=== PATIENT | female | born 1945 | race Caucasian/White ===

== ENCOUNTER 2016-11-11 09:51 | Inpatient (IN) | payer OTHER ==
[2016-11-11 10:13] VITALS: BMI 30.2
--- NOTE | 2016-11-11 10:32 | PDOC ---
History of Present Illness <Jose Lennon - Last Filed: 11/11/16 13:57> - General History Source: Patient Exam Limitations: No Limitations - History of Present Illness Initial Comments: 11/11/16 11:03 The patient is a 71 year old female with a significant past medical history of CHF, diabetes, on dialysis (Sunday, Sunday, Sunday, for the past year), hypertension, and hypercholesterolemia, who presents to the ER with blood glucose 564. Patients daughter is at bedside. As per patients daughter, patient was prescribed insulin for the diabetes 12 months ago. Patient did not fill her prescription then because she was told the dialysis may improve the sugar level. Daughter reports that doctor also may suspect an infection. Patient was not adherent to insulin use. She lives with her sons and has a manager nursing home taking care of her. Patient refuses to have nursing aides. He denies lightheadedness, nausea, vomiting, diarrhea, fever, chills, chest pain, or cough. She denies hematochezia or blood in vomit. Scientific Research Manager: Dr. Lolis Finney <Chelsie Curry - Last Filed: 11/11/16 14:04> - General Chief Complaint: Blood Sugar Problem Stated Complaint: PCP SENT, HIGH SUGAR Past History - Past Medical History CHF: Yes Diabetes: Yes Dialysis: Yes Disorders: Yes (esrd, dialysis) HTN: Yes Hypercholesterolemia: Yes - Immunization History Immunization Up to Date: Yes - Psycho/Social/Smoking Cessation Hx Anxiety: No Suicidal Ideation: No Smoking History: Never smoked Have you smoked in the past 12 months: No Number of Cigarettes Smoked Daily: 0 Information on smoking cessation initiated: No Hx Alcohol Use: No Drug/Substance Use Hx: No Substance Use Type: None Hx Substance Use Treatment: No <Jose Lennon - Last Filed: 11/11/16 13:57> <Chelsie Curry - Last Filed: 11/11/16 14:04> - Past Medical History Allergies/Adverse Reactions: Allergies Allergy/AdvReac Type Severity Reaction Status Date / Time No Known Allergies Allergy Verified 11/11/16 10:12 Home Medications: Ambulatory Orders Calcium Acetate [Phoslo -] 667 mg PO TIDCM 04/17/16 Furosemide [Lasix -] 120 mg PO DAILY 04/17/16 Labetalol HCl [Normodyne -] 400 mg PO AM 04/17/16 Losartan Potassium [Cozaar] 100 mg PO DAILY 04/17/16 Nifedipine ER [Procardia XL -] 60 mg PO BID 04/17/16 Pravastatin Sodium [Pravachol -] 20 mg PO HS 04/17/16 Labetalol HCl [Normodyne -] 200 mg PO 1200 11/11/16 Labetalol HCl [Normodyne -] 200 mg PO HS 11/11/16 Review of Systems - Review of Systems Able to Perform ROS?: Yes Comments:: 11/11/16 11:08 CONSTITUTIONAL: Present: elevated blood sugar Absent: fever, no chills, no fatigue EYES: Absent: visual changes ENT: Absent: ear pain, no sore throat CARDIOVASCULAR: Absent: chest pain, no palpitations RESPIRATORY: Absent: cough, no SOB GI: Absent: abdominal pain, no nausea, no vomiting, no constipation, no diarrhea GENITOURINARY: Absent: dysuria, no frequency, no hematuria MUSCULOSKELETAL: Absent: back pain, no arthralgia, no myalgia SKIN: Absent: rash NEURO: Absent: headache <Uts,Chelsie - Last Filed: 11/11/16 14:04> *Physical Exam - Vital Signs Last Vital Signs Temp Pulse Resp BP Pulse Ox 98.5 F 81 18 146/62 97 11/11/16 10:10 11/11/16 10:10 11/11/16 10:10 11/11/16 10:10 11/11/16 10:10 <Jose Lennon - Last Filed: 11/11/16 13:57> - Vital Signs Last Vital Signs Temp Pulse Resp BP Pulse Ox 98.5 F 81 18 146/62 97 11/11/16 10:10 11/11/16 10:10 11/11/16 10:10 11/11/16 10:10 11/11/16 10:10 - Physical Exam Comments: 11/11/16 11:09 GENERAL: Well-appearing, well-nourished. No apparent distress. HEENT: Normocephalic, atraumatic. PERRL, EOM intact. CARDIOVASCULAR: Normal S1, S2. Regular rate and rhythm. PULMONARY: Clear to auscultation bilaterally. ABDOMEN: Soft, non-distended, non-tender. EXTREMITIES: No peripheral edema. Normal ROM in all four extremities. No gross deformities. SKIN: Warm, dry. No rash NEUROLOGICAL: No focal neurological deficits. <Cehlsie Curry - Last Filed: 11/11/16 14:04> ED Treatment Course - LABORATORY CBC & Chemistry Diagram: 11/11/16 11:08 11/11/16 11:08 <Jose Lennon - Last Filed: 11/11/16 13:57> - LABORATORY CBC & Chemistry Diagram: 11/11/16 11:08 11/11/16 11:08 <Chelsie Curry - Last Filed: 11/11/16 14:04> Medical Decision Making - Medical Decision Making 11/11/16 14:[address] Sobeida Chavez (covering for Dr. Lolis Finney) <Chelsie Curry - Last Filed: 11/11/16 14:04> *DC/Admit/Observation/Transfer - Discharge Dispostion Admit: Yes <Jose Lennon - Last Filed: 11/11/16 13:57> - Attestations Scribe Attestion: 11/11/16 11:10 Documentation prepared by Chelsie Curry, acting as registered medical assistant for Jose Lennon MD, /DO. <Chelsie Curry - Last Filed: 11/11/16 14:04> Diagnosis at time of Disposition: Anemia, chronic renal failure, Hyperglycemia - Discharge Dispostion Condition at time of disposition: Stable - Referrals Referrals: Ken Burgos [Primary Care Provider] -
[2016-11-11 11:18] LABS: BASOPHIL 0.8 % (0-2.0); EOSINOPHIL 2.9 % (0-4.5); MCH 28.2 pg (25.7-33.7); MCHC 32.1 g/dl (32.0-36.0); MEAN CELL VOLUME 87.7 fl (80-96); MEAN PLT VOLUME 9.4 fl (7.5-11.1); NEUTROPHILS 72.1 % (42.8-82.8); PLATELET COUNT 159 K/MM3 (134-434); RDW 15.3 % (11.6-15.6); WHITE BLOOD COUNT 7.8 K/mm3 (4.0-10.0)
[2016-11-11] MEDS ORDERED: INSULIN REGULAR HUMAN 100 UNITS/ML *VIAL IVPUSH ONE (11:18)
[2016-11-11] MEDS ORDERED: INSULIN REGULAR HUMAN 100 UNITS/ML *VIAL ONE (11:35)
[2016-11-11 11:38] LABS: INR 1.08 (0.82-1.09); PROTHROMBIN TIME (PATIENT) 11.9 SEC (9.98-11.88)
[2016-11-11 11:41] LABS: ACTIVATED PTT 29.2 SECONDS (26.9-34.4)
[2016-11-11 11:43] LABS: ALBUMIN 3.8 g/dl (3.4-5.0); ANION GAP 9 (8-16); BILIRUBIN,TOTAL 0.4 mg/dL (0.2-1.0); CALCIUM 9.2 mg/dL (8.5-10.1); CO2 29 mmol/L (21-32); CREATININE 4.2 mg/dL (0.55-1.02); SGOT/AST 9 U/L (15-37); SGPT/ALT 18 U/L (12-78); TOT PROT 6.9 g/dl (6.4-8.2)
[2016-11-11 11:44] LABS: URINE APPEARANCE SLCLOUDY; URINE BILIRUBIN NEGATIVE (NEGATIVE); URINE BLOOD NEGATIVE (NEGATIVE); URINE COLOR LTYELLOW; URINE GLUCOSE (UA) 3+ (NEGATIVE); URINE KETONE NEGATIVE (NEGATIVE); URINE NITRITE NEGATIVE (NEGATIVE); URINE UROBILINOGEN NEGATIVE E.U./dl (0.2-1.0)
[2016-11-11 11:44] LABS: ALK PHOS 129 U/L (45-117)
[2016-11-11 11:45] LABS: URINE LEUK ESTERASE 1+ (NEGATIVE); URINE PROTEIN 3+ (NEGATIVE)
[2016-11-11 11:51] LABS: URINE RBC 3 /hpf (0-3); URINE WBC 32 /hpf (3-5)
[2016-11-11 11:54] LABS: GLUCOSE,RANDOM 429 mg/dL (74-106)
[2016-11-11 12:24] LABS: ACETONE SERUM NEGATIVE (NEGATIVE)
[2016-11-11 13:24] LABS: VENOUS BLOOD GAS HCO3 27.5 meq/L (22-29); VENOUS PH 7.4 (7.31-7.41)
--- NOTE | 2016-11-11 14:36 | HP ---
CHIEF COMPLAINT: High blood sugar PCP: Dr. Rogers ([address]) HISTORY OF PRESENT ILLNESS: This is a 71 year old female with a history of IDDM (was prescribed insulin but has not been using it), HTN, HLD, ESRD on HD M/W/ since December 2015, CHF, and chronic anemia (with prior transfusions) referred to the ED by her dialysis center for anemia and hypoglycemia. The patient reports having a normal EGD and colonoscopy in February of this year. She denies hematemesis or hematochezia. She does report some hematuria. ER course was notable for: (1) Hgb/hct 7.0/21.7 (2) Blood glucose 429 with normal AG and negative acetone (3) UA with 32 WBCs, possibly consistent with UTI Recent Travel: None Social History: Lives with 2 sons Smoking: None Alcohol: None Allergies No Known Allergies Allergy (Verified 11/11/16 10:12) HOME MEDICATIONS: Medication Instructions Recorded Calcium Acetate [Phoslo -] 667 mg PO TIDCM 04/17/16 Furosemide [Lasix -] 120 mg PO DAILY 04/17/16 Labetalol HCl [Normodyne -] 400 mg PO AM 04/17/16 Losartan Potassium [Cozaar] 100 mg PO DAILY 04/17/16 Nifedipine ER [Procardia XL -] 60 mg PO BID 04/17/16 Pravastatin Sodium [Pravachol -] 20 mg PO HS 04/17/16 Labetalol HCl [Normodyne -] 200 mg PO 1200 11/11/16 Labetalol HCl [Normodyne -] 200 mg PO HS 11/11/16 REVIEW OF SYSTEMS CONSTITUTIONAL: Absent: fever, chills, diaphoresis, generalized weakness, malaise, loss of appetite, weight change HEENT: Absent: rhinorrhea, nasal congestion, throat pain, throat swelling, difficulty swallowing, mouth swelling, ear pain, eye pain, visual changes CARDIOVASCULAR: Absent: chest pain, syncope, palpitations, irregular heart rate, lightheadedness , peripheral edema RESPIRATORY: Absent: cough, shortness of breath, dyspnea with exertion, orthopnea, wheezing, stridor, hemoptysis GASTROINTESTINAL: Absent: abdominal pain, abdominal distension, nausea, vomiting, diarrhea, constipation, melena, hematochezia GENITOURINARY: Dysuria/hematuria Absent: frequency, urgency, hesitancy, flank pain, genital pain MUSCULOSKELETAL: Absent: myalgia, arthralgia, joint swelling, back pain, neck pain SKIN: Absent: rash, itching, pallor HEMATOLOGIC/IMMUNOLOGIC: Absent: easy bleeding, easy bruising, lymphadenopathy, frequent infections ENDOCRINE: Polydyspsia Absent: unexplained weight gain, unexplained weight loss, heat intolerance, cold intolerance NEUROLOGIC: Absent: headache, focal weakness or paresthesias, dizziness, unsteady gait, seizure, mental status changes, bladder or bowel incontinence PSYCHIATRIC: Absent: anxiety, depression, suicidal or homicidal ideation, hallucinations. PHYSICAL EXAMINATION Vital Signs - 24 hr 11/11/16 11/11/16 10:10 11:00 Temperature 98.5 F 98.5 F Pulse Rate 81 81 Respiratory 18 18 Rate Blood Pressure 146/62 146/62 O2 Sat by Pulse 97 97 Oximetry (%) GENERAL: Awake, alert, and fully oriented, in no acute distress. HEAD: Normal with no signs of trauma. EYES: Pupils equal, round and reactive to light, extraocular movements intact, sclera anicteric, conjunctivae pale. No lid lag. EARS, NOSE, THROAT: Ears normal, nares patent, oropharynx clear without exudates. Moist mucous membranes. NECK: Normal range of motion, supple without lymphadenopathy, JVD, or masses. LUNGS: Breath sounds equal, clear to auscultation bilaterally. No wheezes, and no crackles. No accessory muscle use. HEART: Regular rate and rhythm, normal S1 and S2 without murmur, rub or gallop. ABDOMEN: Soft, nontender, not distended, normoactive bowel sounds, no guarding, no rebound, no masses. No hepatomegaly or splenomegaly. MUSCULOSKELETAL: Normal range of motion at all joints. No bony deformities or tenderness. No CVA tenderness. UPPER EXTREMITIES: 2+ pulses, warm, well-perfused. No cyanosis. No clubbing. Cap refill <2 seconds. No peripheral edema. LUE AVF + bruit + thrill. LOWER EXTREMITIES: 2+ pulses, warm, well-perfused. No calf tenderness. No peripheral edema. NEUROLOGICAL: Cranial nerves II-XII intact. Normal speech. Normal gait. PSYCHIATRIC: Cooperative. Good eye contact. Appropriate mood and affect. SKIN: Warm, dry, normal turgor, no rashes or lesions noted. RECTAL: Normal external exam, no internal masses. Guaiac trace positive stool. Laboratory Results - last 24 hr 11/11/16 11/11/16 11/11/16 10:51 10:51 11:08 WBC 7.8 D RBC 2.48 L D Hgb 7.0 L D Hct 21.7 L D MCV 87.7 MCHC 32.1 RDW 15.3 Plt Count 159 MPV 9.4 D Neutrophils % 72.1 Lymphocytes % 16.7 D Monocytes % 7.5 Eosinophils % 2.9 D Basophils % 0.8 INR PTT (Actin FS) VBG pH POC VBG pCO2 POC VBG pO2 Sodium Potassium Chloride Carbon Dioxide Anion Gap BUN Creatinine Creat Clearance w eGFR Random Glucose Calcium Total Bilirubin AST ALT Alkaline Phosphatase Total Protein Albumin Urine Color Ltyellow Urine Appearance Slcloudy Urine pH 8.0 Ur Specific [place] 1.018 Urine Protein 3+ H Urine Glucose (UA) 3+ H Urine Ketones Negative Urine Blood Negative Urine Nitrite Negative Urine Bilirubin Negative Urine Urobilinogen Negative Ur Leukocyte Esterase 1+ H Urine RBC 3 Urine WBC 32 Ur Epithelial Cells Moderate Acetone, Qual Blood Type O POSITIVE Antibody Screen Negative Crossmatch See Detail 11/11/16 11/11/16 11/11/16 11:08 11:08 11:15 WBC RBC Hgb Hct MCV MCHC RDW Plt Count MPV Neutrophils % Lymphocytes % Monocytes % Eosinophils % Basophils % INR 1.08 PTT (Actin FS) 29.2 VBG pH 7.40 POC VBG pCO2 45.2 D POC VBG pO2 53.8 H Sodium 133 L Potassium 4.9 Chloride 95 L Carbon Dioxide 29 Anion Gap 9 BUN 44 H Creatinine 4.2 H D Creat Clearance w eGFR 10.43 Random Glucose 429 H* D Calcium 9.2 Total Bilirubin 0.4 D AST 9 L D ALT 18 D Alkaline Phosphatase 129 H D Total Protein 6.9 Albumin 3.8 Urine Color Urine Appearance Urine pH Ur Specific [place] Urine Protein Urine Glucose (UA) Urine Ketones Urine Blood Urine Nitrite Urine Bilirubin Urine Urobilinogen Ur Leukocyte Esterase Urine RBC Urine WBC Ur Epithelial Cells Acetone, Qual Negative L Blood Type Antibody Screen Crossmatch ASSESSMENT/PLAN: 71 year old female with hyperglycemia and anemia. Problem List - Problem (1) Anemia Assessment/Plan: -Normocytic -Likely anemia of chronic disease secondary to renal failure -Transfuse 2 units PRBCs with dialysis -Refer for outpatient GI evaluation if H/H increases appropriately with transfusion Code(s): D64.9 - ANEMIA, UNSPECIFIED (2) Diabetes Assessment/Plan: -Poorly controlled/non-adherent to insulin -Check hgbA1C -Diabetic/renal diet -FSACHS -ISS Code(s): E11.9 - TYPE 2 DIABETES MELLITUS WITHOUT COMPLICATIONS (3) ESRD (end stage renal disease) on dialysis Assessment/Plan: -Nephrology following -Continue PhosLo Code(s): N18.6 - END STAGE RENAL DISEASE Z99.2 - DEPENDENCE ON RENAL DIALYSIS (4) Hypertension Assessment/Plan: -Above goal -Resume home Cozaar/Labetolol/Procardia/Lasix Code(s): I10 - ESSENTIAL (PRIMARY) HYPERTENSION (5) Urinary tract infection Assessment/Plan: -Symptomatic -Send urine culture -Start Ceftriaxone 1g daily Code(s): N39.0 - URINARY TRACT INFECTION, SITE NOT SPECIFIED (6) DVT prophylaxis Assessment/Plan: -SCDs -Ambulation Code(s): [id number] - Visit type - Emergency Visit Emergency Visit: Yes ED Registration Date: 11/11/16 Care time: The patient presented to the Emergency Department on the above date and was hospitalized for further evaluation of their emergent condition. - New Patient This patient is new to me today: Yes Date on this admission: 11/11/16 - Critical Care Critical Care patient: No
--- NOTE | 2016-11-11 15:50 | CONSULT ---
Consult Consult Specialty:: Nephrology ( drs. Sobeida Chavez/ Dr. Mcmahan) Reason for Consultation:: Patient with ESRD, admitted with Profound Anemia and Hyperglycemia. The patient has h/o DM2, HTN, ESRD on HD at [facility], CHF, Hypertension, Hypercholesterolemia, Chronic Anemia. - History Source History Provided By: Family Member, Medical Record Limitations to Obtaining History: Poor Historian - Past Medical History Cardio/Vascular: Yes: CHF, HTN, Hyperlipdemia Renal/: Yes: Renal Failure, Hemodialysis Heme/Onc: Yes: Anemia Musculoskeletal: Yes: Chronic low back pain Endocrine: Yes: Diabetes Mellitus - Past Surgical History Past Surgical History: Yes: AV Fistula/Graft - Alcohol/Substance Use Hx Alcohol Use: No - Smoking History Smoking history: Never smoked Have you smoked in the past 12 months: No Aproximately how many cigarettes per day: 0 - Social History ADL: Independent History of Recent Travel: No Home Medications - Allergies Allergies/Adverse Reactions: Allergies Allergy/AdvReac Type Severity Reaction Status Date / Time No Known Allergies Allergy Verified 11/11/16 10:12 - Home Medications Home Medications: Ambulatory Orders Calcium Acetate [Phoslo -] 667 mg PO TIDCM 04/17/16 Furosemide [Lasix -] 120 mg PO DAILY 04/17/16 Labetalol HCl [Normodyne -] 400 mg PO AM 04/17/16 Losartan Potassium [Cozaar] 100 mg PO DAILY 04/17/16 Nifedipine ER [Procardia XL -] 60 mg PO BID 04/17/16 Pravastatin Sodium [Pravachol -] 20 mg PO HS 04/17/16 Labetalol HCl [Normodyne -] 200 mg PO 1200 11/11/16 Labetalol HCl [Normodyne -] 200 mg PO HS 11/11/16 Review of Systems - Review of Systems Constitutional: reports: Malaise Eyes: reports: No Symptoms HENT: reports: No Symptoms Neck: reports: No Symptoms Cardiovascular: reports: No Symptoms Respiratory: reports: No Symptoms Gastrointestinal: reports: No Symptoms Genitourinary: reports: No Symptoms Endocrine: reports: Increased Thirst Physical Exam Vital Signs: Vital Signs Temperature 98.5 F 11/11/16 14:49 Pulse Rate 75 11/11/16 14:49 Respiratory Rate 16 11/11/16 14:49 Blood Pressure 169/66 11/11/16 14:49 O2 Sat by Pulse Oximetry (%) 95 11/11/16 14:49 Constitutional: Yes: No Distress, Pallor Eyes: Yes: WNL HENT: Yes: WNL Neck: Yes: WNL, Trachea Midline Cardiovascular: Yes: Murmur, S1, S2 Respiratory: Yes: Regular, CTA Bilaterally Gastrointestinal: Yes: WNL Problem List - Problems (1) Anemia, chronic renal failure Code(s): N18.9 - CHRONIC KIDNEY DISEASE, UNSPECIFIED D63.1 - ANEMIA IN CHRONIC KIDNEY DISEASE (2) Hyperglycemia Code(s): R73.9 - HYPERGLYCEMIA, UNSPECIFIED (3) Acidosis Code(s): E87.2 - ACIDOSIS (4) Anemia Code(s): D64.9 - ANEMIA, UNSPECIFIED (5) CKD (chronic kidney disease) Code(s): N18.9 - CHRONIC KIDNEY DISEASE, UNSPECIFIED (6) Congestive heart failure Code(s): I50.9 - HEART FAILURE, UNSPECIFIED (7) Diabetes Code(s): E11.9 - TYPE 2 DIABETES MELLITUS WITHOUT COMPLICATIONS (8) Diabetes mellitus with hyperglycemia Code(s): E11.65 - TYPE 2 DIABETES MELLITUS WITH HYPERGLYCEMIA (9) ESRD (end stage renal disease) on dialysis Code(s): N18.6 - END STAGE RENAL DISEASE Z99.2 - DEPENDENCE ON RENAL DIALYSIS (10) Hypertension Code(s): I10 - ESSENTIAL (PRIMARY) HYPERTENSION (11) Hypertensive renal disease Code(s): I12.9 - HYPERTENSIVE CHRONIC KIDNEY DISEASE W STG 1-4/UNSP CHR KDNY Assessment/Plan Patient is a 71 y/o female with ESRD admitted with Hyperglycemia and Profound Anemia. No overt signs of bleeding PLAN: Hemodialyis with PRBC transfusion Tight Glycemic control Dietary insurance counsel W/u for anemia, including GI Blood loss Thank you. Will follow with you. Orders for HD written and reviewed with the HD nurse. Will transfuse 2 units of PRBC on HD Sobeida Chavez MD
[2016-11-11] MEDS ORDERED: ONDANSETRON 4 MG/2 ML VIAL IVPB PRN (16:59)
[2016-11-11] MEDS ORDERED: ACETAMINOPHEN 325 MG TABLET (FP) PO PRN (16:59)
[2016-11-11] MEDS ORDERED: CEFTRIAXONE 1 GM in DEXTROSE 5%-WATER - 50 ML IVPB SCH (17:15)
[2016-11-11 19:33] LABS: BASOPHIL 0.7 % (0-2.0); EOSINOPHIL 3.4 % (0-4.5); MCH 28.5 pg (25.7-33.7); MCHC 32.8 g/dl (32.0-36.0); MEAN CELL VOLUME 86.9 fl (80-96); MEAN PLT VOLUME 9.8 fl (7.5-11.1); NEUTROPHILS 70.5 % (42.8-82.8); PLATELET COUNT 162 K/MM3 (134-434); RDW 14.8 % (11.6-15.6); WHITE BLOOD COUNT 8.7 K/mm3 (4.0-10.0)
[2016-11-11] MEDS ORDERED: LABETALOL HCL 200 MG TABLET (FP) PO SCH (22:00)
[2016-11-11] MEDS ORDERED: ATORVASTATIN CA 10 MG TABLET (FP) PO SCH (22:00)
[2016-11-11] MEDS ORDERED: INSULIN (NOVOLOG) ASPART 100 UNITS/ML 10ML VIAL ONE (23:35)
--- NOTE | 2016-11-11 23:40 | EKG ---
Test Reason : Blood Pressure : / mmHG Vent. Rate : 072 BPM Atrial Rate : 072 BPM P-R Int : 190 ms QRS Dur : 118 ms QT Int : 412 ms P-R-T Axes : 041 -41 105 degrees QTc Int : 451 ms NORMAL SINUS RHYTHM LEFT AXIS DEVIATION LEFT VENTRICULAR HYPERTROPHY WITH QRS WIDENING AND REPOLARIZATION ABNORMALITY ABNORMAL ECG WHEN COMPARED WITH ECG OF 17-APR-2016 11:35, NO SIGNIFICANT CHANGE WAS FOUND Confirmed by BRANDY NEIL, KLEVER ([id number]) on 11/11/2016 11:40:15 PM Referred By: Confirmed By:KLEVER NAVA MD
[2016-11-11] MEDS: DOCUSATE SODIUM 100 MG CAPSULE (FP) PO SCH (23:48)
[2016-11-11] MEDS: cefTRIAXone 1 GM/50 ML BAG (PRE-DOCKED) IVPB SCH (23:49)
[2016-11-11] MEDS: CALCIUM ACETATE 667 MG CAPSULE (FP) PO SCH (23:49)
[2016-11-11] MEDS: NIFEdipine E.R 60 MG TABLET (UD) PO SCH (23:50)
[2016-11-11] MEDS: INSULIN SLIDING SCALE (NOVOLOG) 1 VIAL SQ SCH (23:50)
[2016-11-12] MEDS: INSULIN SLIDING SCALE (NOVOLOG) 1 VIAL SQ SCH ×3 (00:09→11:43)
[2016-11-12] MEDS: DOCUSATE SODIUM 100 MG CAPSULE (FP) PO SCH ×2 (06:58→14:38)
[2016-11-12] MEDS ORDERED: LABETALOL HCL 200 MG TABLET (FP) PO SCH ×2 (07:00→12:00)
[2016-11-12] MEDS: CALCIUM ACETATE 667 MG CAPSULE (FP) PO SCH ×2 (08:59→11:43)
--- NOTE | 2016-11-12 09:34 | DS ---
Physical Exam: SUBJECTIVE: Patient seen and examined OBJECTIVE: Vital Signs Period Temp Pulse Resp BP Sys/Parker Pulse Ox Last 24 Hr 98.4 F-98.8 F 67-79 16-20 160-199/66-87 95 PHYSICAL EXAM GENERAL: The patient is awake, alert, and fully oriented, in no acute distress. HEAD: Normal with no signs of trauma. EYES: PERRL, extraocular movements intact, sclera anicteric, conjunctiva clear. ENT: Ears normal, nares patent, oropharynx clear without exudates, moist mucous membranes. NECK: Trachea midline, full range of motion, supple. LUNGS: Breath sounds equal, clear to auscultation bilaterally, no wheezes, no crackles, no accessory muscle use. HEART: Regular rate and rhythm, S1, S2 without murmur, rub or gallop. ABDOMEN: Soft, nontender, nondistended, normoactive bowel sounds, no guarding, no rebound, no hepatosplenomegaly, no masses. EXTREMITIES: 2+ pulses, warm, well-perfused, no edema. NEUROLOGICAL: Cranial nerves II through XII grossly intact. Normal speech, gait not observed. PSYCH: Normal mood, normal affect. SKIN: Warm, dry, normal turgor, no rashes or lesions noted. LABS Laboratory Results - last 24 hr 11/11/16 11/11/16 11/11/16 14:35 15:30 18:00 WBC RBC Hgb Hct MCV MCHC RDW Plt Count MPV Neutrophils % Lymphocytes % Monocytes % Eosinophils % Basophils % POC Glucometer Hemoglobin A1c % Ferritin 781.531 H Stool Occult Blood Trace Hepatitis C Antibody Cancelled 11/11/16 11/11/16 11/12/16 18:11 18:30 06:55 WBC 8.7 RBC 3.37 L D Hgb 9.6 L D Hct 29.3 L D MCV 86.9 MCHC 32.8 RDW 14.8 Plt Count 162 MPV 9.8 Neutrophils % 70.5 Lymphocytes % 17.2 Monocytes % 8.2 Eosinophils % 3.4 Basophils % 0.7 POC Glucometer 196 220 Hemoglobin A1c % Ferritin Stool Occult Blood Hepatitis C Antibody 11/12/16 07:00 WBC RBC Hgb Hct MCV MCHC RDW Plt Count MPV Neutrophils % Lymphocytes % Monocytes % Eosinophils % Basophils % POC Glucometer Hemoglobin A1c % 8.3 H D Ferritin Stool Occult Blood Hepatitis C Antibody HOSPITAL COURSE: Date of Admission:11/11/16 Date of Discharge: 11/12/16 Minutes to complete discharge: 35 Discharge Summary Reason For Visit: ANEMIA, CHF, HYPERGLYCEMIA Current Active Problems Anemia, chronic renal failure (Acute) Hyperglycemia (Acute) Urinary tract infection (Acute) Hospital Course: This is a 71 year old female with a history of IDDM (was prescribed insulin but has not been using it), HTN, HLD, ESRD on HD M/W/F since December 2015, CHF, and chronic anemia (with prior transfusions) admitted with anemia and hyperglycemia. Significant events included: -H/H 7.0/21.7, transfused 2 units PRBCs with HD, increased to 9.6/29.3, guaiac trace positive -Blood glucose 429 (normal AG, neg acetone), A1C 8.3%, improved well with sliding scale insulin -UA suggestive of UTI, started on Ceftriaxone Plan: -Anemia: Follow up iron studies as outpatient. Start PPI. Follow up with GI outpatient (discussed at length with patient and supervisor film processing and both agree with this plan of care). -Hyperglycemia: Start on oral glipizide, follow up with sintering plant supervisor, reinforced dietary guidelines. -UTI: Kelfex as outpatient. Followup instructions and return precautions reviewed. Condition: Stable - Instructions Diet, Activity, Other Instructions: You were admitted to the hospital with high blood sugar and anemia (low blood count). These improved with insulin and blood transfusion. -Continue all your prescribed medications -Add the following 3 medications: -Glipizide (a pill for the treatment of diabetes) -Protonix (to prevent stomach bleeding) -Keflex (for treatment of urinary tract infection -These medications were sent to [facility] -Follow up with the railroad repairer as you will need further evaluation of possible causes of your anemia. A referral is enclosed. -Follow up with the sintering plant supervisor (diabetes doctor). A referral is enclosed. -Return here for dizziness/lightheadedness, fainting/near fainting, chest pain, shortness of breath, or any other concerning symptoms. Referrals: Ken Burgos [Primary Care Provider] - Grant Santamaria MD [Staff Physician] - 1 Week (Plastic Maker) Sobeida Chavez MD [Staff Physician] - Easton Salinas MD [Staff Physician] - 1 Week (Application Coordinator) Disposition: HOME - Home Medications Comprehensive Discharge Medication List: Ambulatory Orders Calcium Acetate [Phoslo -] 667 mg PO TIDCM 04/17/16 Furosemide [Lasix -] 120 mg PO DAILY 04/17/16 Labetalol HCl [Normodyne -] 400 mg PO AM 04/17/16 Losartan Potassium [Cozaar] 100 mg PO DAILY 04/17/16 Nifedipine ER [Procardia XL -] 60 mg PO BID 04/17/16 Pravastatin Sodium [Pravachol -] 20 mg PO HS 04/17/16 Labetalol HCl [Normodyne -] 200 mg PO 1200 11/11/16 Labetalol HCl [Normodyne -] 200 mg PO HS 11/11/16 Problem List - Problems (1) Diabetes Code(s): E11.9 - TYPE 2 DIABETES MELLITUS WITHOUT COMPLICATIONS (2) ESRD (end stage renal disease) on dialysis Code(s): N18.6 - END STAGE RENAL DISEASE Z99.2 - DEPENDENCE ON RENAL DIALYSIS (3) Hypertension Code(s): I10 - ESSENTIAL (PRIMARY) HYPERTENSION (4) Urinary tract infection Code(s): N39.0 - URINARY TRACT INFECTION, SITE NOT SPECIFIED This patient is new to me today: No Emergency Visit: Yes ED Registration Date: 11/11/16 Care time: The patient presented to the Emergency Department on the above date and was hospitalized for further evaluation of their emergent condition. Critical Care patient: No - Discharge Referral Referred to [facility] Med P.C.: No
[2016-11-12] MEDS ORDERED: glipiZIDE 5 MG TABLET (FP) PO ONE (09:45)
[2016-11-12] MEDS ORDERED: LOSARTAN POTASSIUM 50 MG TABLET (FP) PO SCH (10:00)
[2016-11-12] MEDS ORDERED: FUROSEMIDE 40 MG TABLET (FP) PO SCH (10:00)
[2016-11-12] MEDS: cefTRIAXone 1 GM/50 ML BAG (PRE-DOCKED) IVPB SCH (10:03)
[2016-11-12] MEDS: NIFEdipine E.R 60 MG TABLET (UD) PO SCH (10:03)
[2016-11-12] MEDS ORDERED: INSULIN (NOVOLOG) ASPART 100 UNITS/ML 10ML VIAL ONE (11:42)
[2016-11-12] MEDS ORDERED: PT OWN MED DRAWER 7, Y5N ONE (11:42)
[2016-11-12 12:51] LABS: ALBUMIN 3.6 g/dl (3.4-5.0); BILIRUBIN,TOTAL 0.6 mg/dL (0.2-1.0); CALCIUM 9.1 mg/dL (8.5-10.1); CREATININE 3.6 mg/dL (0.55-1.02); TOT PROT 6.7 g/dl (6.4-8.2)
--- NOTE | 2016-11-12 13:30 | PN ---
Progress Note, Physician Chief Complaint: Patient came in with profound Anemia and Hyperglycemia. Received PRBC Transfusion X 2 and the blood glucose is improving. Feeling better. BP in better range. 146/82 - Current Medication List Current Medications: Active Medications Acetaminophen (Tylenol -) 650 mg PO Q4H PRN PRN Reason: FEVER OR PAIN Atorvastatin Calcium (Lipitor -) 10 mg PO HS [facility] Last Admin: 11/11/16 23:48 Dose: 10 mg Calcium Acetate (Phoslo -) 667 mg PO TIDCM [facility] Last Admin: 11/12/16 11:43 Dose: 667 mg Ceftriaxone Sodium (Rocephin 1gm Ivpb (Pre-Docked)) 1 gm IVPB DAILY [facility] Last Admin: 11/12/16 10:03 Dose: 1 gm Docusate Sodium (Colace -) 100 mg PO TID [facility] Last Admin: 11/12/16 06:58 Dose: 100 mg Furosemide (Lasix -) 120 mg PO DAILY [facility] Last Admin: 11/12/16 10:03 Dose: 120 mg Insulin Aspart (Novolog Vial Sliding Scale -) 1 vial SQ ACHS [facility] PRN Reason: Protocol Last Admin: 11/12/16 11:43 Dose: 8 units Labetalol HCl (Normodyne -) 200 mg PO HS [facility] Last Admin: 11/11/16 23:48 Dose: 200 mg Labetalol HCl (Normodyne -) 400 mg PO AM [facility] Last Admin: 11/12/16 06:58 Dose: 400 mg Labetalol HCl (Normodyne -) 200 mg PO DAILY@1200 [facility] Last Admin: 11/12/16 11:44 Dose: 200 mg Losartan Potassium (Cozaar -) 100 mg PO DAILY [facility] Last Admin: 11/12/16 10:03 Dose: 100 mg Nifedipine (Procardia Xl -) 60 mg PO BID [facility] Last Admin: 11/12/16 10:03 Dose: 60 mg Ondansetron HCl (Zofran Injection) 4 mg IVPB Q6H PRN PRN Reason: NAUSEA - Objective Vital Signs: Vital Signs Temperature 97.4 F L 11/12/16 10:00 Pulse Rate 74 11/12/16 10:00 Respiratory Rate 18 11/12/16 10:00 Blood Pressure 156/87 11/12/16 10:00 O2 Sat by Pulse Oximetry (%) 95 11/12/16 09:00 Labs: CBC, BMP 11/11/16 18:30 11/12/16 07:00 INR, PTT INR 1.08 (0.82-1.09) 11/11/16 11:08 Problem List - Problems (1) Anemia, chronic renal failure Code(s): N18.9 - CHRONIC KIDNEY DISEASE, UNSPECIFIED D63.1 - ANEMIA IN CHRONIC KIDNEY DISEASE (2) Hyperglycemia Code(s): R73.9 - HYPERGLYCEMIA, UNSPECIFIED (3) Acidosis Code(s): E87.2 - ACIDOSIS (4) Anemia Code(s): D64.9 - ANEMIA, UNSPECIFIED (5) CKD (chronic kidney disease) Code(s): N18.9 - CHRONIC KIDNEY DISEASE, UNSPECIFIED (6) Congestive heart failure Code(s): I50.9 - HEART FAILURE, UNSPECIFIED (7) Diabetes Code(s): E11.9 - TYPE 2 DIABETES MELLITUS WITHOUT COMPLICATIONS (8) Diabetes mellitus with hyperglycemia Code(s): E11.65 - TYPE 2 DIABETES MELLITUS WITH HYPERGLYCEMIA (9) ESRD (end stage renal disease) on dialysis Code(s): N18.6 - END STAGE RENAL DISEASE Z99.2 - DEPENDENCE ON RENAL DIALYSIS (10) Hypertension Code(s): I10 - ESSENTIAL (PRIMARY) HYPERTENSION (11) Hypertensive renal disease Code(s): I12.9 - HYPERTENSIVE CHRONIC KIDNEY DISEASE W STG 1-4/UNSP CHR KDNY Assessment/Plan Patient is a 71 y/o female with ESRD admitted with Hyperglycemia and Profound Anemia. No overt signs of bleeding PLAN: received HD with PRBC transfusion Hgb has improved BP better blood glucose improved. Stool guiac better. Patient will need GI w/u. Discussed with admitting MD.to start on PPI if dicharged will follow her as ot patiet in the dialysis unit. Thank you Sobeida Chavez MD
[2016-11-12 16:16] VITALS: BP 148/79; PULSE 78; TEMP 97.2
[2016-11-13 08:06] LABS: SERUM IRON 72 ug/dL (27-139); TOTAL IRON BINDING CAPACITY 222 ug/dL (250-450); UIBC 150 ug/dL (118-369)
[2016-11-15 00:10] LABS: HEP B SURFACE AB Non Reactive (.)
== END 2016-11-12 16:58 | disposition home or self-care (01) | DRG 420 ==
LOC: JER 09:51 → JERBED 14:32 → J5S 21:15
PROVIDERS: ADMIT Internal Medicine; ATTEND Registered Nurse Emergency
PROC: 30233N1 Transfusion of Nonautologous Red Blood Cells into Peripheral Vein, Percutaneous Approach (ICD-10-PCS; principal; 2016-11-11)
PROC: 5A1D00Z (ICD-10-PCS; 2016-11-11)
DX: E11.65 Type 2 diabetes mellitus with hyperglycemia (principal); I13.2 Hypertensive heart and chronic kidney disease with heart failure and with stage 5 chronic kidney disease, or end stage renal disease; E87.2 Acidosis; N18.6 End stage renal disease; N39.0 Urinary tract infection, site not specified; E11.22 Type 2 diabetes mellitus with diabetic chronic kidney disease; D63.1 Anemia in chronic kidney disease; E78.00 Pure hypercholesterolemia, unspecified; Z99.2 Dependence on renal dialysis
CPT/HCPCS: 36415; 36430; 71010-TC; 80053; 81003; 81015; 82009; 82272; 82728; 82803; 83036; 83540; 83550; 85025; 85610; 85730; 86704; 86706; 86708; 86803; 86850; 86900; 86901; 86922; 87086; 87340; 93005; 93010; 99284-25; P9038; P9058

== ENCOUNTER 2016-11-15 18:42 | Inpatient (IN) | payer OTHER ==
--- NOTE | 2016-11-15 19:27 | PDOC ---
*Physical Exam - Vital Signs Last Vital Signs Temp Pulse Resp BP Pulse Ox 98.5 F 77 14 136/55 96 11/15/16 18:49 11/15/16 18:49 11/15/16 18:49 11/15/16 18:49 11/15/16 18:49 ED Treatment Course - LABORATORY CBC & Chemistry Diagram: 11/16/16 17:00 11/16/16 08:20 Medical Decision Making - Medical Decision Making 11/15/16 19:27 agree with care from RANCHO Lisa *DC/Admit/Observation/Transfer Diagnosis at time of Disposition: Rectal bleeding, Anemia - Discharge Dispostion Condition at time of disposition: Stable
[2016-11-15 20:08] LABS: MCH 27.5 pg (25.7-33.7); MCHC 31.1 g/dl (32.0-36.0); MEAN CELL VOLUME 88.4 fl (80-96); MEAN PLT VOLUME 9.6 fl (7.5-11.1); PLATELET COUNT 204 K/MM3 (134-434); RDW 15.9 % (11.6-15.6); WHITE BLOOD COUNT 14.8 K/mm3 (4.0-10.0)
[2016-11-15 20:24] LABS: INR 1.08 (0.82-1.09); PROTHROMBIN TIME (PATIENT) 11.9 SEC (9.98-11.88)
[2016-11-15 20:42] LABS: ALBUMIN 3.6 g/dl (3.4-5.0); BILIRUBIN,TOTAL 0.4 mg/dL (0.2-1.0); CALCIUM 8.5 mg/dL (8.5-10.1); CREATININE 2.2 mg/dL (0.55-1.02); TOT PROT 6.5 g/dl (6.4-8.2)
[2016-11-15 21:19] LABS: ANISOCYTOSIS 2+; PLATELET ESTIMATE ADEQUATE (NORMAL)
--- NOTE | 2016-11-16 02:08 | PDOC ---
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 Patient states she was released from inpatient admission on Sunday, symptoms began Sunday and continues. Patient states she is a dialysis patient MWF. She had dialysis today but is unsure of how many liters of fluid pulled off. Patient denies abd pain, CP, diff breathing, rectal bleed, or any other complaints at this time. Timing/Duration: other (3 days) Severity: mild Modifying Factors: worse with: cold therapy, eating, immobilization, medication , movement, rest, other Associated Symptoms: reports: other (Dizziness) Past History - Travel Traveled outside of the country in the last 30 days: No Close contact w/someone who was outside of country & ill: No - Past Medical History Allergies/Adverse Reactions: Allergies Allergy/AdvReac Type Severity Reaction Status Date / Time No Known Allergies Allergy Verified 11/11/16 10:12 Home Medications: Ambulatory Orders Calcium Acetate [Phoslo -] 667 mg PO TIDCM 04/17/16 Furosemide [Lasix -] 120 mg PO DAILY 04/17/16 Labetalol HCl [Normodyne -] 400 mg PO AM 04/17/16 Losartan Potassium [Cozaar] 100 mg PO DAILY 04/17/16 Nifedipine ER [Procardia XL -] 60 mg PO BID 04/17/16 Pravastatin Sodium [Pravachol -] 20 mg PO HS 04/17/16 Labetalol HCl [Normodyne -] 200 mg PO 1200 11/11/16 Labetalol HCl [Normodyne -] 200 mg PO HS 11/11/16 Cephalexin [Keflex] 500 mg PO BID #10 capsule 11/12/16 Glipizide 5 mg PO DAILY #30 tablet 11/12/16 Pantoprazole Sodium [Protonix] 40 mg PO DAILY #30 tablet. 11/12/16 CHF: Yes Diabetes: Yes Dialysis: Yes Disorders: Yes (esrd, dialysis) HTN: Yes Hypercholesterolemia: Yes - Surgical History Cardiac Surgery: Yes - Immunization History Immunization Up to Date: Yes - Psycho/Social/Smoking Cessation Hx Anxiety: No Suicidal Ideation: No Smoking History: Never smoked Have you smoked in the past 12 months: No Number of Cigarettes Smoked Daily: 0 Information on smoking cessation initiated: No Hx Alcohol Use: No Drug/Substance Use Hx: No Substance Use Type: None Hx Substance Use Treatment: No Review of Systems - Review of Systems Able to Perform ROS?: Yes Is the patient limited Angolan proficient: No Constitutional: No: Chills, Fever HEENTM: No: Blurred Vision, Double Vision Respiratory: Yes: Shortness of Breath. No: Cough, Orthopnea Cardiac (ROS): No: Chest Pain, Edema, Palpitations, Syncope, Chest Tightness ABD/GI: Yes: Nausea. No: Diarrhea, Vomiting : Yes: Dysuria (Dialysis patient). No: Flank Pain, Hematuria Musculoskeletal: No: Back Pain Integumentary: No: Bruising, Erythema, Rash Neurological: Yes: Dizziness. No: Headache, Numbness, Paresthesia, Tingling, Tremors, Weakness All Other Systems: Reviewed and Negative *Physical Exam - Vital Signs Last Vital Signs Temp Pulse Resp BP Pulse Ox 98.7 F 77 15 151/59 98 11/16/16 01:22 11/16/16 01:22 11/16/16 01:22 11/16/16 01:22 11/16/16 01:22 - Physical Exam General Appearance: Yes: Nourished, Appropriately Dressed. No: Apparent Distress Neck: positive: Trachea midline, Supple Respiratory/Chest: positive: Lungs Clear, Decreased Breath Sounds Cardiovascular: positive: Regular Rhythm, Regular Rate Gastrointestinal/Abdominal: positive: Normal Bowel Sounds, Soft, Distended. negative: Guarding, Rebound, Tenderness Rectal Exam: positive: normal rectal tone, heme positive stool Lymphatic: negative: Adenopathy Musculoskeletal: positive: Normal Inspection. negative: CVA Tenderness Extremity: positive: Normal Capillary Refill, Normal Inspection, Normal Range of Motion Integumentary: positive: Normal Color, Dry, Warm Neurologic: positive: application development intern II-XII NML intact, Fully Oriented, Alert, Normal Mood/ Affect, Normal Response ED Treatment Course - LABORATORY CBC & Chemistry Diagram: 11/15/16 19:43 11/15/16 19:43 - ADDITIONAL ORDERS Additional order review: Laboratory Results 11/16/16 11/15/16 11/15/16 00:44 19:43 19:43 INR 1.08 Sodium 139 Potassium 4.0 Chloride 99 Carbon Dioxide 31 Anion Gap 9 BUN 25 H Creatinine 2.2 H D Creat Clearance w eGFR 22.00 Random Glucose 244 H D Calcium 8.5 Total Bilirubin 0.4 D AST 16 D ALT 18 Alkaline Phosphatase 89 B-Natriuretic Peptide 32908.06 H Total Protein 6.5 Albumin 3.6 Stool Occult Blood Positive 11/15/16 19:43 RBC 2.14 L D MCV 88.4 MCHC 31.1 L RDW 15.9 H MPV 9.6 Neutrophils % 86.0 H D Lymphocytes % 4.0 L D Monocytes % 3.0 L - RADIOLOGY Radiology Studies Ordered: Category Date Time Status CHEST X-RAY PORTABLE* [RAD] Stat Radiology 11/15/16 19:22 Completed *DC/Admit/Observation/Transfer Diagnosis at time of Disposition: Rectal hemorrhage Anemia Qualifiers: Anemia type: unspecified type Qualified Code(s): D64.9 - Anemia, unspecified - Discharge Dispostion Condition at time of disposition: Stable Admit: Yes
--- NOTE | 2016-11-16 02:19 | PN ---
<Ana Ambrose - Last Filed: 11/16/16 02:19> Teaching Attending Note Name of Resident: Sinai Segura ATTENDING PHYSICIAN STATEMENT I saw and evaluated the patient. I reviewed the resident's note and discussed the case with the resident. I agree with the resident's findings and plan as documented. SUBJECTIVE: OBJECTIVE: ASSESSMENT AND PLAN: <Jorge ALang - Last Filed: 11/16/16 03:57> Teaching Attending Note ATTENDING PHYSICIAN STATEMENT I saw and evaluated the patient. I reviewed the resident's note and discussed the case with the resident. I agree with the resident's findings and plan as documented. SUBJECTIVE: Patient is a 71 year old female with pmhx of IDDM, HTN, HLD, ESRD on HD (MWF), CHF, chronic anemia who presents with dizziness, diaphoresis and nausea for 2 days. The patient reports melena but denies hematochezia.The patient notes associated headache and vomiting. She states her last episode of vomiting was earlier today. Patient notes she was admitted on 11/12 for anemia and was discharged. The patient denies chest pain, shortness of breath, and palpitations. The patient denies fever, cough, and chills. OBJECTIVE: Physical: VS: Last Vital Signs Temp Pulse Resp BP Pulse Ox 98.7 F 77 15 151/59 98 11/16/16 01:22 11/16/16 01:22 11/16/16 01:22 11/16/16 01:22 11/16/16 01:22 GEN: NAD HEENT: NCAT, PERRL CARD: RRR, S1 S2 RESP: CTAB ABD: NT, BWS x4 RECTAL: Differed EXT: - CCE LABS: CBCD WBC 14.8 K/mm3 (4.0-10.0) H D 11/15/16 19:43 RBC 2.14 M/mm3 (3.60-5.2) L D 11/15/16 19:43 Hgb 5.9 GM/dL (10.7-15.3) L* D 11/15/16 19:43 Hct 18.9 % (32.4-45.2) L D 11/15/16 19:43 MCV 88.4 fl (80-96) 11/15/16 19:43 MCHC 31.1 g/dl (32.0-36.0) L 11/15/16 19:43 RDW 15.9 % (11.6-15.6) H 11/15/16 19:43 Plt Count 204 K/MM3 (134-434) D 11/15/16 19:43 MPV 9.6 fl (7.5-11.1) 11/15/16 19:43 CMP Sodium 139 mmol/L (136-145) 11/15/16 19:43 Potassium 4.0 mmol/L (3.5-5.1) 11/15/16 19:43 Chloride 99 mmol/L (98-107) 11/15/16 19:43 Carbon Dioxide 31 mmol/L (21-32) 11/15/16 19:43 Anion Gap 9 (8-16) 11/15/16 19:43 BUN 25 mg/dL (7-18) H 11/15/16 19:43 Creatinine 2.2 mg/dL (0.55-1.02) H D 11/15/16 19:43 Creat Clearance w eGFR 22.00 (>60) 11/15/16 19:43 Calcium 8.5 mg/dL (8.5-10.1) 11/15/16 19:43 Total Bilirubin 0.4 mg/dL (0.2-1.0) D 11/15/16 19:43 AST 16 U/L (15-37) D 11/15/16 19:43 ALT 18 U/L (12-78) 11/15/16 19:43 Alkaline Phosphatase 89 U/L (45-117) 11/15/16 19:43 Total Protein 6.5 g/dl (6.4-8.2) 11/15/16 19:43 Albumin 3.6 g/dl (3.4-5.0) 11/15/16 19:43 Image: CXR Impression: no acute process. ASSESSMENT AND PLAN: Patient is 71 year old female with significant past medical history of diabetes , HTN, HLD, ESRD on HD and anemia presents with dizziness found to have upper GI bleed. 1.) Upper GI bleed -NPO -2 large bore IV -Protonix IV push 4 BID -PRBC with dialysis 2 units -Will need HD tomorrow -GI consult -Coags -CBC Q12 2.) CHF -Not clinically overloaded -Increase BMP from baseline -Sodium restricted/renal diet -Daily weights -Strict ins and outs 3. ESRD -On HD -Post dialysis yesterday -Would repeat HD with transfusion to avoid overload -Nephrology consulted and spoken to 4.HTN -Hold PO meds for now -Can give IV 5.DVT PPX -SCDs Admit to med tele Documentation prepared by Lang Jules, acting as medical historian for Ana Ambrose D.O.
[2016-11-16] MEDS ORDERED: PANTOPRAZOLE SODIUM 40 MG in SODIUM CHLORIDE 100 ML IVPB SCH (02:28)
--- NOTE | 2016-11-16 02:29 | HP ---
CHIEF COMPLAINT: "Im dizzy and nauscious" PCP: Dr Rogers HISTORY OF PRESENT ILLNESS: This is a 71 yo F with PMH of CHF, IDDM, ESRD on HD, HTN, HLD and chronic anemia with prior transfusion, who presents due to dizziness and nausea. She was just discharged from here on sunday, was admitted for anemia and hyperglycemia. during last admission h/h was 7/21.7 and improved to 9.6/29.3 after 2 Units. She also had a UTI treated with keflex. She was guaiac positive but was not evaluated by GI. Her symptoms started on sunday. She reports associated h/a, nausea and one episode of nbnb vomiting yesterday. she denies chest pain, palpitations, sob, cough, abd pain or hematochezia. She reports having very dark stools daily. She had HD on sun and Sun. ER course was notable for: (1)labs (2)cxr (3)stool guaiac Recent Travel: denies PAST MEDICAL HISTORY: as above PAST SURGICAL HISTORY: as above Social History: lives with children Smoking: past smoker when was a teenager Alcohol: denies Drugs: denies Family History: no gi or cardiac illness Allergies No Known Allergies Allergy (Verified 11/11/16 10:12) HOME MEDICATIONS: Medication Instructions Recorded Calcium Acetate [Phoslo -] 667 mg PO TIDCM 04/17/16 Furosemide [Lasix -] 120 mg PO DAILY 04/17/16 Labetalol HCl [Normodyne -] 400 mg PO AM 04/17/16 Losartan Potassium [Cozaar] 100 mg PO DAILY 04/17/16 Nifedipine ER [Procardia XL -] 60 mg PO BID 04/17/16 Pravastatin Sodium [Pravachol -] 20 mg PO HS 04/17/16 Labetalol HCl [Normodyne -] 200 mg PO 1200 11/11/16 Labetalol HCl [Normodyne -] 200 mg PO HS 11/11/16 Cephalexin [Keflex] 500 mg PO BID #10 capsule 11/12/16 Glipizide 5 mg PO DAILY #30 tablet 11/12/16 Pantoprazole Sodium [Protonix] 40 mg PO DAILY #30 tablet. 11/12/16 REVIEW OF SYSTEMS CONSTITUTIONAL: Absent: fever, chills, diaphoresis, weight change HEENT: Absent: rhinorrhea, nasal congestion, throat pain CARDIOVASCULAR: Absent: chest pain, syncope, palpitations, irregular heart rate, peripheral edema RESPIRATORY: Absent: cough, shortness of breath, hemoptysis GASTROINTESTINAL: Absent: abdominal pain, abdominal distension, diarrhea, constipation, hematochezia GENITOURINARY: Absent: dysuria, hematuria MUSCULOSKELETAL: Absent: myalgia, arthralgia SKIN: Absent: rash, itching, pallor HEMATOLOGIC/IMMUNOLOGIC: Absent: easy bleeding, easy bruising ENDOCRINE: Absent: unexplained weight gain, unexplained weight loss NEUROLOGIC: Absent: headache, focal weakness or paresthesias PSYCHIATRIC: Absent: anxiety PHYSICAL EXAMINATION Vital Signs - 24 hr 11/15/16 11/16/16 18:49 01:22 Temperature 98.5 F 98.7 F Pulse Rate 77 Pulse Rate [ 77 Apical] Respiratory 14 15 Rate Blood Pressure 136/55 Blood Pressure 151/59 [Right Arm] O2 Sat by Pulse 96 98 Oximetry (%) GENERAL: Awake, alert, and fully oriented, in no acute distress. HEAD: Normal with no signs of trauma. EYES: Pupils equal, round and reactive to light, extraocular movements intact, sclera anicteric, conjunctiva clear. EARS, NOSE, THROAT: Moist mucous membranes. NECK: supple without lymphadenopathy, JVD, or masses. LUNGS: R lung CTA, L veda diffuse coarse breath sounds HEART: Regular rate and rhythm, normal S1 and S2 ABDOMEN: Soft, nontender, not distended, normoactive bowel sounds, no guarding, No hepatomegaly or splenomegaly. rectal exam no lesions appreciated, dark brown /black stool MUSCULOSKELETAL: No CVA tenderness. UPPER EXTREMITIES: 2+ pulses, warm, well-perfused. No peripheral edema. LOWER EXTREMITIES: 2+ pulses, warm, well-perfused. No calf tenderness. No peripheral edema. NEUROLOGICAL: Cranial nerves II-XII grossly intact. Normal speech. PSYCHIATRIC: Cooperative. Good eye contact. SKIN: Warm, dry Laboratory Results - last 24 hr 11/15/16 11/15/16 11/15/16 19:43 19:43 19:43 WBC 14.8 H D RBC 2.14 L D Hgb 5.9 L* D Hct 18.9 L D MCV 88.4 MCHC 31.1 L RDW 15.9 H Plt Count 204 D MPV 9.6 Neutrophils % 86.0 H D Lymphocytes % 4.0 L D Monocytes % 3.0 L Band Neutrophils 7.0 Platelet Estimate Adequate Anisocytosis 2+ INR 1.08 Sodium 139 Potassium 4.0 Chloride 99 Carbon Dioxide 31 Anion Gap 9 BUN 25 H Creatinine 2.2 H D Creat Clearance w eGFR 22.00 Random Glucose 244 H D Calcium 8.5 Total Bilirubin 0.4 D AST 16 D ALT 18 Alkaline Phosphatase 89 B-Natriuretic Peptide 87175.06 H Total Protein 6.5 Albumin 3.6 Stool Occult Blood Crossmatch 11/16/16 11/16/16 00:30 00:44 WBC RBC Hgb Hct MCV MCHC RDW Plt Count MPV Neutrophils % Lymphocytes % Monocytes % Band Neutrophils Platelet Estimate Anisocytosis INR Sodium Potassium Chloride Carbon Dioxide Anion Gap BUN Creatinine Creat Clearance w eGFR Random Glucose Calcium Total Bilirubin AST ALT Alkaline Phosphatase B-Natriuretic Peptide Total Protein Albumin Stool Occult Blood Positive Crossmatch See Detail ASSESSMENT/PLAN: This is a 71 yo F with PMH of CHF, IDDM, ESRD on HD, HTN, HLD and chronic anemia with prior transfusion, who presents due to dizziness and nausea. Low h/ h 5.9/18.9 [place] in setting of Upper GIB -h/h 5.9/18.9 -protonix 40 IV BID -NPO -GI consult -Renal consult -transfuse 2 U PRBC tomorrow with HD IDDM -sliding scale -fingersticks TIDAC HTN -resume home meds once confirmed HLD -resume home meds once confirmed ESRD -HD M W F CHF -resume home meds once confirmed FEN no IVF lytes stable DVT GI PPX: SCD, no a/c, PPI IV NPO Dispo: admit to tele Problem List - Problem (1) Anemia Code(s): D64.9 - ANEMIA, UNSPECIFIED Qualifiers: Anemia type: unspecified type Qualified Code(s): D64.9 - Anemia, unspecified (2) Renal insufficiency Code(s): N28.9 - DISORDER OF KIDNEY AND URETER, UNSPECIFIED (3) Anemia, chronic renal failure Code(s): N18.9 - CHRONIC KIDNEY DISEASE, UNSPECIFIED D63.1 - ANEMIA IN CHRONIC KIDNEY DISEASE (4) CKD (chronic kidney disease) Code(s): N18.9 - CHRONIC KIDNEY DISEASE, UNSPECIFIED (5) Diabetes Code(s): E11.9 - TYPE 2 DIABETES MELLITUS WITHOUT COMPLICATIONS (6) ESRD (end stage renal disease) on dialysis Code(s): N18.6 - END STAGE RENAL DISEASE Z99.2 - DEPENDENCE ON RENAL DIALYSIS (7) Hyperlipidemia Code(s): E78.5 - HYPERLIPIDEMIA, UNSPECIFIED (8) Hypertension Code(s): I10 - ESSENTIAL (PRIMARY) HYPERTENSION (9) Congestive heart failure Code(s): I50.9 - HEART FAILURE, UNSPECIFIED Visit type - Emergency Visit Emergency Visit: Yes ED Registration Date: 11/16/16 Care time: The patient presented to the Emergency Department on the above date and was hospitalized for further evaluation of their emergent condition. - New Patient This patient is new to me today: Yes Date on this admission: 11/16/16 - Critical Care Critical Care patient: No
[2016-11-16] MEDS ORDERED: PANTOPRAZOLE SODIUM 80 MG in SODIUM CHLORIDE 100 ML IVPB SCH (02:30)
[2016-11-16] MEDS: PANTOPRAZOLE SODIUM 40 MG/100 ML PRE-DOCKED IVPB SCH ×2 (06:44→12:19)
[2016-11-16] MEDS: INSULIN SLIDING SCALE (NOVOLOG) 1 VIAL SQ SCH ×5 (06:48→22:03)
[2016-11-16 08:27] LABS: MCH 29.8 pg (25.7-33.7); MCHC 33.4 g/dl (32.0-36.0); MEAN CELL VOLUME 89.2 fl (80-96); MEAN PLT VOLUME 8.7 fl (7.5-11.1); PLATELET COUNT 171 K/MM3 (134-434); RDW 16.1 % (11.6-15.6)
[2016-11-16 10:02] LABS: CREATININE 3.8 mg/dL (0.55-1.02); MAGNESIUM 2.4 mg/dL (1.8-2.4); PHOSPHOROUS 4.6 mg/dL (2.5-4.9)
--- NOTE | 2016-11-16 11:16 | CONSULT ---
Consult - text type - Consultation Consultation Note: Renal Consult for ESRD on HD This is a 71 year old woman with PMhx of ESRD on HD, Diabetic Nephropathy, Hypertension, CKD Related Anemia, DM who presented with weakness, dizziness and nausea and found to have acute on chronic anemia with Hgb of 5.9. s/p recent admission for hyperglycemia and anemia that required 2 units of blood transfused. Pt denies any overt bleeding but does have melena. No abd pain, chest pain, SOB. Last dialysis was yesterday. PMhx: as above AllergieS: NKDA Family hx: NC Social Hx: NO T/A/D ROS: as per HPI, all other pertinent ros negative Home Meds: Medication Instructions Recorded Calcium Acetate [Phoslo -] 667 mg PO TIDCM 04/17/16 Furosemide [Lasix -] 120 mg PO DAILY 04/17/16 Labetalol HCl [Normodyne -] 400 mg PO AM 04/17/16 Losartan Potassium [Cozaar] 100 mg PO DAILY 04/17/16 Nifedipine ER [Procardia XL -] 60 mg PO BID 04/17/16 Pravastatin Sodium [Pravachol -] 20 mg PO HS 04/17/16 Labetalol HCl [Normodyne -] 200 mg PO 1200 11/11/16 Labetalol HCl [Normodyne -] 200 mg PO HS 11/11/16 Cephalexin [Keflex] 500 mg PO BID #10 capsule 11/12/16 Glipizide 5 mg PO DAILY #30 tablet 11/12/16 Pantoprazole Sodium [Protonix] 40 mg PO DAILY #30 tablet. 11/12/16 Vital Signs Temperature 98.7 F 11/16/16 04:00 Pulse Rate 78 11/16/16 04:00 Respiratory Rate 15 11/16/16 04:00 Blood Pressure 175/70 11/16/16 04:00 O2 Sat by Pulse Oximetry (%) 98 11/16/16 04:00 Intake & Output 11/13/16 11/14/16 11/15/16 11/16/16 23:59 23:59 23:59 23:59 Weight 139 lb 139 lb Gen: NAD, awake and alert HEENT: NC/AT, Dry MM CVS: RRR, no M/R Lungs: CTA, no rales or wheeze Abd: soft NT/ND Ext: No edema, clubbing or cyanosis Access: Left ARM AVF + thrill and bruit CBC, BMP 11/16/16 08:20 11/16/16 08:20 Current Medications Current Medications Pantoprazole Sodium 80 mg/ (Sodium Chloride) 100 mls @ 10 mls/hr IVPB Q10H KARINA PRN Reason: 8 MG/HR Insulin Aspart (Novolog Vial Sliding Scale -) 1 vial SQ Q4HPO KARINA PRN Reason: Protocol Last Admin: 11/16/16 09:59 Dose: 6 units a/P 71 year old woman with PMhx of ESRD on HD, Diabetic Nephropathy, Hypertension, CKD Related Anemia, DM who presented with weakness, dizziness and nausea and found to have acute on chronic anemia with Hgb of 5.9. #Acute on Chronic Anemia with positive stool occult blood/GI bleed Currently getting 1 unit prbc on the floor Will transfuse additional 2 prbc with HD Goal is to keep Hgb >8 GI consult for EGD Continue Protonix gtt Add on iron studies to am labs #ESRD on HD Will arrange for HD today to allow for blood transfusions w/o volume accumulation and risk of hyperkalmeia Will maintain on MWF schedule following Dose all meds for intermittent HD #DM Continue Insulin sliding scale #Hypertension Restart Labetalol and Losartan Goal BP < 150/90 for now hold procardia for the time being until blood counts are stable Thank you Will follow Alf Mcmahan DO
--- NOTE | 2016-11-16 11:18 | EKG ---
Test Reason : Blood Pressure : / mmHG Vent. Rate : 079 BPM Atrial Rate : 079 BPM P-R Int : 172 ms QRS Dur : 110 ms QT Int : 442 ms P-R-T Axes : 045 -34 093 degrees QTc Int : 506 ms POOR DATA QUALITY, INTERPRETATION MAY BE ADVERSELY AFFECTED NORMAL SINUS RHYTHM POSSIBLE LEFT ATRIAL ENLARGEMENT LEFT AXIS DEVIATION INCOMPLETE RIGHT BUNDLE BRANCH BLOCK LEFT VENTRICULAR HYPERTROPHY WITH REPOLARIZATION ABNORMALITY CANNOT RULE OUT SEPTAL INFARCT , AGE UNDETERMINED ABNORMAL ECG WHEN COMPARED WITH ECG OF 11-NOV-2016 11:09, MINIMAL CRITERIA FOR SEPTAL INFARCT ARE NOW PRESENT T WAVE INVERSION NOW EVIDENT IN ANTERIOR LEADS QT HAS LENGTHENED Confirmed by BRANDY NEIL, KLEVER ([id number]) on 11/16/2016 11:18:11 AM Referred By: Confirmed By:KLEVER NAVA MD
[2016-11-16] MEDS: LABETALOL HCL 200 MG TABLET (FP) PO SCH ×2 (11:55→21:24)
[2016-11-16] MEDS: LOSARTAN POTASSIUM 50 MG TABLET (FP) PO SCH (11:58)
[2016-11-16] MEDS ORDERED: LABETALOL HCL 200 MG TABLET (FP) PO SCH (12:00)
--- NOTE | 2016-11-16 12:25 | MSN ---
Progress Note (SOAP) - Subjective History of Present Illness: Pt is a 71 y/o female with a pmh of CHF, DM, CVA 8 years ago, ESRD on HD, HTN, and chronic anemia who presented to the ED from her dialysis center on 11/15 with nausea and dizziness. She was getting her dialysis as part of her MWF regimen and she became nauseous, dizzy, weak, and had one episode of nbnb vomitus. Pt was in the hospital one week prior with anemia and a UTI, which were treated with 2 transfusions of prbcs and keflex, respectively. She is stool guaiac positive I saw and spoke to the pt this morning and she is pleasant and cooperative. She states she has only a a slight headache but denies any current nausea, dizziness , shortness of breath, palpitations, or chest pain. She has not had a bowel movement since she has been here, but states that she has been having melena for some time. She is scheduled to receive at least 2 units of prbcs when getting HD this morning. - Current Medications Current Medications: Active Medications Pantoprazole Sodium 80 mg/ (Sodium Chloride) 100 mls @ 10 mls/hr IVPB Q10H KARINA PRN Reason: 8 MG/HR Insulin Aspart (Novolog Vial Sliding Scale -) 1 vial SQ Q4HPO KARINA PRN Reason: Protocol Last Admin: 11/16/16 09:59 Dose: 6 units Labetalol HCl (Normodyne -) 200 mg PO 1200 KARINA Last Admin: 11/16/16 11:25 Dose: 200 mg Labetalol HCl (Normodyne -) 200 mg PO HS KARINA Labetalol HCl (Normodyne -) 400 mg PO AM [facility] Non-Formulary Medication (Losartan Potassium [Cozaar]) 100 mg PO DAILY [facility] - Objective Vital Signs: Vital Signs Temperature 98 F 11/16/16 09:00 Pulse Rate 78 11/16/16 09:00 Respiratory Rate 16 11/16/16 09:00 Blood Pressure 188/84 11/16/16 09:00 O2 Sat by Pulse Oximetry (%) 98 11/16/16 04:00 Constitutional: Yes: No Distress, Calm Eyes: Yes: Conjunctiva Clear, EOM Intact, PERRL Cardiovascular: Yes: Regular Rate and Rhythm, JVD (while sitting at 45 degrees) , Murmur (2/6 systolic murmur in 2nd r. ics radiating to neck), S1, S2 Respiratory: Yes: Regular, CTA Bilaterally (with coarse sounds in the left lung base) Gastrointestinal: Yes: Normal Bowel Sounds, Soft Genitourinary: Yes: WNL (no suprapubic tenderness) Extremities: Yes: WNL Peripheral Pulses WNL: Yes (dp pulses felt, PT not palpable b/l) Edema: No Neurological: Yes: Alert, Oriented, Facial Droop (slight downturn in smile, residual defect from stroke 8 years ago) ...Motor Strength: Yes: WNL Labs Lab Results: CBC, BMP 11/16/16 08:20 11/16/16 08:20 Assessment/Plan Anemia -H and H was 5.1/15.9 -Possible GI bleed vs chronic kidney disease -Likely bleed since esrd only since last year + melena -1 unit of prbcs given on floor, 2 more with HD -f/u CBC after transfusions -Aim to maintain the hb >8 -NPO, NO ivf -GI consult. Will likely need an upper endoscopy and possible colonoscopy -Protonix IV drip -No iron studies at this time due to transfusions ESRD -HD today. Normally on MWF. -f/u BMP after HD DM -Novolog sliding scale HTN -continue home meds
[2016-11-16] MEDS: PANTOPRAZOLE SODIUM 80 MG in SODIUM CHLORIDE 100 ML IVPB SCH ×2 (12:48→22:28)
--- NOTE | 2016-11-16 12:48 | PN ---
Progress Note (short form) - Note Progress Note: Consult dictated 71F with worsening of baseline anemia History of dark bowel movements during her last visit to [facility] this month. There was no GI consult at that time and she was referred to see Dr. Santamaria as an outpatient Hgb 5: received 1 U PRBC and to get 2 more at HD today On exam: + Systolic murmur at the LSB No focal abdominal findings Dark brown stool, guaiac + Imp: worsened baseline normocytic anemia, guaiac + stool. Suspect component of GI blood loss hemodynamically stable Plan: Clear liquids transfuse to hgb 8-9 PPI drip NPO after midnight for EGD. If unrevealing for source of blood loss, colonoscopy on sunday
[2016-11-16 13:04] LABS: FERRITIN 755.987 ng/ml (6.9-282.5)
--- NOTE | 2016-11-16 13:07 | PN ---
Teaching Attending Note Name of Resident: Vanessa Orozco ATTENDING PHYSICIAN STATEMENT I saw and evaluated the patient. I reviewed the resident's note and discussed the case with the resident. I agree with the resident's findings and plan as documented. SUBJECTIVE:c/o dizzyness, worse on exertion. admits to melanotic stools for several months but states she was placed on iron supplements as well. denies CP , SOB, fever, chills, hemoyptsis, hematuria, BRBPR. denies ASA or NSAID use. was seen 5 days earlier and transfused 2 units and d/c home was instructed to f/ u with GI which she did not make appointment yet. OBJECTIVE: Last Vital Signs Temp Pulse Resp BP Pulse Ox 98 F 78 16 188/84 98 11/16/16 09:00 11/16/16 09:00 11/16/16 09:00 11/16/16 09:00 11/16/16 04:00 General NAD CV S1 S2 RRR +murmur no rubs or gallops Abdomen soft NT/ND no rebound or guarding Extremities LUE palpable thrill ASSESSMENT AND PLAN: 71yo F wtih PMH ESRD on HD, CHF, HTN, CVA and DM presented to the ER and was admitted for further evaluation of their emergent condition 1. upper GI bleed- NPO, PPI ggt, transfusing 1 unit PRBC now and then will receive 2 units with HD today. check post transfusion cbc. trend Q8H. GI evaluation. will likely require EGD/colonoscopy 2. Dizzyness- likely symptomatic from anemia 3. HTN- uncontrolled. did not receive any meds since admission for BP. will give labetolol now and plan for HD. will slowly re-start home medications 4. DM- NPO for now, hold oral agents. iss, 5. ESRD on HD- plan for HD today 6. CHF- no clinical signs of volume overload. likely falsely elevated BNP in setting ESRD. 7.DVT- no a/c in setting of bleed, SCD
--- NOTE | 2016-11-16 14:03 | CONS ---
DATE OF CONSULTATION: 11/16/2016 REQUESTING PHYSICIAN: [facility] Hospitalist Service [employer] full time staff interpreter number [id number] was utilized, as the patient speaks only Montserratian. The patient is a 71-year-old woman admitted through [facility] emergency room yesterday evening for evaluation of dizziness and nausea. She had recently been released from [facility] this past Sunday and her symptoms began Sunday. In looking back at the [facility] [employer] system, it does appear as though she was discharged on May 11, and at that time, as she was referred by her dialysis center for evaluation of anemia and hypoglycemia. She had reported some hematuria apparently at that time, per the H&P, and her hemoglobin on admission at that time was 7.0. She was apparently transfused blood. She was put on a PPI, and in discharge papers it appears as though she was advised to follow up with Dr. Grant Santamaria. Of note, it does appear that she was trace guaiac positive May 11 as well. The patient tells me that a couple years ago she may have had both an upper endoscopy and colonoscopy at [facility] and she does not recall being told of any abnormal findings. She stated that she was having dark bowel movements at the time of her admission; however, the day after she was discharged, she denied any dark bowel movements. She also denies any associated abdominal pain, overt rectal bleeding, hematemesis, or coffee-ground emesis. In the emergency room, vitals revealed a temperature of 98.5, pulse of 77, and blood pressure of 136/55. She was given 1 unit of packed red blood cells transfusion today, which she is currently receiving, for her hemoglobin of 5.1, and she is scheduled to have 2 more units of packed red blood cells given during her dialysis session today. She denies any NSAID use. She is not on any anticoagulants. There is no family history of colorectal cancer or other GI malignancies, and there has been no overt bleeding noted. Stool specimen sent from the emergency room revealed her to be guaiac positive. Past medical history includes chronic kidney disease, end-stage renal disease on hemodialysis, hypertension, anemia, diabetes mellitus type 2. Past surgical history includes bilateral cataract removal and left AV fistula placement. ALLERGIES: No known drug allergies. SOCIAL HISTORY: She was born in [place]. She has been living in the [place] for 23 years. No history of recent travel. She is unemployed. She states that she worked when she was in her 20s. She is an ex tobacco smoker and she denies any history of alcohol abuse. FAMILY HISTORY: Mother at age 81, she is unclear as to causes of this. Father at age 31. She has 2 sisters who are healthy. Six children, 5 sons and 1 daughter who are healthy. Medications prior to admission include Pravachol, Procardia, Cozaar, PhosLo, Lasix, Normodyne, glipizide, Keflex, and Protonix. REVIEW OF SYSTEMS: She denies any shortness of breath. She denies any chest pain. She denies any abdominal pain, dysphagia, or odynophagia. The remainder of her GI review of systems as noted in the history of present illness. She denies any lower extremity swelling. PHYSICAL EXAMINATION: General: Patient was found lying comfortably in her bed. She appeared to be in no apparent distress. Vital Signs: Afebrile. Pulse 78. Blood pressure 180/84. Sclerae: Anicteric. Neck: Supple. Heart: Regular rate and rhythm. She did have a 2/6 systolic murmur heard best at the left sternal border. Lungs: Clear to auscultation bilaterally. Abdomen: Nondistended. There were no scars. She had normoactive bowel sounds. No hepatosplenomegaly was appreciated. No masses were palpated. No hernias detected. No tenderness is elicited. Extremities: No lower extremity edema. Digital Rectal Exam: She had no external lesions. She had a copious amount of dark brown stool in the rectal vault, which is guaiac positive. LABORATORY EVALUATION: White blood count 10, hemoglobin 5.1, hematocrit 15.2, platelets of 171, INR 1.08. Sodium 137, potassium 4.4, chloride 100, bicarbonate of 30, BUN of 40, creatinine 3.8, glucose of 272, AST of 16, ALT of 18, alkaline phosphatase 89, total bilirubin of 0.4, with an albumin of 3.6, INR 1.08. RADIOLOGY REPORTS: She had a chest x-ray performed, revealing cardiac silhouette remains slightly enlarged, unfolding of the aortic arch, and moderate elevation of the right hemidiaphragm, mild perihilar increased lung markings without evidence of focal infiltrates. IMPRESSION: This is a 71-year-old female with worsened baseline normocytic anemia. She also has guaiac positive stool. I suspect a component of GI blood loss. She does remain hemodynamically stable. Would recommend the following: Keep the patient on a clear liquid diet, n.p.o. after midnight, transfuse to hemoglobin to 8 to 9. I have changed the Protonix to a Protonix infusion, and then n.p.o. after midnight for upper endoscopy. If unrevealing for source of blood loss, colonoscopy on Sunday. I did discuss the procedure with the patient via sign language interpreter [id number]. We discussed potential risks of the procedure, like but not limited to bleeding, perforation requiring surgery to repair, infection, sedation medication effects, all of which could be potentially life threatening. She has agreed to the procedure. Other recommendations will be made pending the patient's clinical course. I thank you for this consultative opportunity. LINK CURRY DO [id number]
[2016-11-16] MEDS ORDERED: LABETALOL HCL 5 MG/1 ML (100MG/20 ML VIAL) IVPUSH ONE ×2 (15:33→18:00)
[2016-11-16] MEDS ORDERED: ENALAPRILAT DIHYDRATE 2.5 MG/2 ML VIAL IVPB ONE (16:45)
[2016-11-16] MEDS ORDERED: cloNIDine HCL 0.1 MG TABLET PO ONE (16:45)
[2016-11-16] MEDS: NIFEdipine E.R 60 MG TABLET (UD) PO SCH (16:56)
--- NOTE | 2016-11-16 17:31 | PN ---
Physical Exam: SUBJECTIVE: Patient seen and examined at bed side. reports light headedness. denies Cp, SOb, N/V/d reports having had CVA aproximatily 7 years ago. Elevated SBP > 200, not taking home meds. OBJECTIVE: Vital Signs Period Temp Pulse Resp BP Sys/Parker Pulse Ox Last 24 Hr 98 F-98.7 F 68-88 15-20 175-219/70-88 98-98 GENERAL: The patient is awake, alert, and fully oriented, in no acute distress. HEAD: Normal with no signs of trauma. EYES: PERRL, extraocular movements intact, sclera anicteric, conjunctiva clear. No ptosis. ENT: Ears normal, nares patent, oropharynx clear without exudates, moist mucous membranes. NECK: Trachea midline, full range of motion, supple. LUNGS: Breath sounds equal, clear to auscultation bilaterally, no wheezes, no crackles, no accessory muscle use. HEART: Regular rate and rhythm, S1, S2 with murmur systolic mummer aortic area radiating to neck, rub or gallop. ABDOMEN: Soft, nontender, nondistended, normoactive bowel sounds, no guarding, no rebound, no hepatosplenomegaly, no masses. EXTREMITIES: 2+ pulses, warm, well-perfused, no edema. NEUROLOGICAL: Cranial nerves II through XII grossly intact. Normal speech, gait not observed. PSYCH: Normal mood, normal affect. SKIN: Warm, dry, normal turgor, no rashes or lesions noted Laboratory Results - last 24 hr 11/16/16 11/16/16 11/16/16 06:45 08:20 08:20 WBC 10.0 D RBC 1.70 L D Hgb 5.1 L* D Hct 15.2 L D MCV 89.2 MCHC 33.4 RDW 16.1 H Plt Count 171 MPV 8.7 Sodium 137 Potassium 4.4 Chloride 100 Carbon Dioxide 30 Anion Gap 7 L BUN 40 H D Creatinine 3.8 H D POC Glucometer 325 Random Glucose 272 H Calcium 8.0 L Phosphorus 4.6 D Magnesium 2.4 Ferritin 755.987 H 11/16/16 11/16/16 11/16/16 08:20 09:56 14:10 WBC RBC Hgb Hct MCV MCHC RDW Plt Count MPV Sodium Potassium Chloride Carbon Dioxide Anion Gap BUN Creatinine POC Glucometer 282 207 Random Glucose Calcium Phosphorus Magnesium Ferritin Cancelled 11/16/16 15:52 WBC RBC Hgb Hct MCV MCHC RDW Plt Count MPV Sodium Potassium Chloride Carbon Dioxide Anion Gap BUN Creatinine POC Glucometer 177 Random Glucose Calcium Phosphorus Magnesium Ferritin Active Medications Generic Name Dose Route Start Last Admin Trade Name Ignacio PRN Reason Stop Dose Admin Pantoprazole Sodium 80 mg/ 100 mls @ 10 mls/hr 11/16/16 12:00 11/16/16 12:48 Sodium Chloride IVPB 10 mls/hr Q10H KARINA Administration 8 MG/HR Insulin Aspart 1 vial 11/16/16 06:00 11/16/16 14:13 Novolog Vial Sliding Scale - SQ 4 units Q4HPO KARINA Administration Protocol Labetalol HCl 200 mg 11/16/16 22:00 Normodyne - PO HS KARINA Labetalol HCl 400 mg 11/17/16 07:00 Normodyne - PO AM KARINA Labetalol HCl 200 mg 11/16/16 12:00 11/16/16 11:55 Normodyne - PO Not Given DAILY@1200 KARINA Losartan Potassium 100 mg 11/16/16 12:00 11/16/16 11:58 Cozaar - PO 100 mg DAILY KARINA Administration Nifedipine 60 mg 11/16/16 16:45 11/16/16 16:56 Procardia Xl - PO 60 mg DAILY KARINA Administration ASSESSMENT/PLAN: Pt is a 71 y/o female with a pmh of CHF, DM, CVA 8 years ago, ESRD on HD, HTN, and chronic anemia who presented to the ED from her dialysis center on 11/15 with nausea and dizziness found to possible GI bleed. #Upper GI bleed -NPO -2 large bore IV -Protonix IV push 4 BID -Will need HD today -GI consult -Endoscopy tomorrow -Coags -CBC Q12 #symptomatic sever anemia- -PRBC with dialysis 3 units - follow cbc after HD #HTN did not receive any meds since admission for BP. systolic >200. -Hold PO meds for now -Can give IV will give labetolol now and plan for HD. will slowly re-start home medications # CHF -Not clinically overloaded -Increase BMP from baseline possibly 2/2 CKD -Sodium restricted/renal diet -Daily weights -Strict ins and outs # ESRD -On HD -Post dialysis yesterday -Would repeat HD with transfusion to avoid overload -Nephrology consulted and spoken to DM - NPO for now, hold oral agents. iss, DVT PPX -SCDs med tele Visit type - Emergency Visit Emergency Visit: Yes ED Registration Date: 11/16/16 Care time: The patient presented to the Emergency Department on the above date and was hospitalized for further evaluation of their emergent condition. - New Patient This patient is new to me today: No - Critical Care Critical Care patient: No
[2016-11-16 18:47] LABS: MCH 28.7 pg (25.7-33.7); MCHC 32.2 g/dl (32.0-36.0); MEAN CELL VOLUME 89.1 fl (80-96); MEAN PLT VOLUME 9.5 fl (7.5-11.1); PLATELET COUNT 172 K/MM3 (134-434); WHITE BLOOD COUNT 9.5 K/mm3 (4.0-10.0)
[2016-11-17] MEDS: INSULIN SLIDING SCALE (NOVOLOG) 1 VIAL SQ SCH ×6 (06:16→21:43)
[2016-11-17] MEDS: LABETALOL HCL 200 MG TABLET (FP) PO SCH ×3 (06:20→21:39)
[2016-11-17 07:01] LABS: MCH 30.2 pg (25.7-33.7); MCHC 33.9 g/dl (32.0-36.0); MEAN PLT VOLUME 9.1 fl (7.5-11.1); PLATELET COUNT 172 K/MM3 (134-434); RDW 14.8 % (11.6-15.6); WHITE BLOOD COUNT 9.4 K/mm3 (4.0-10.0)
[2016-11-17 07:17] LABS: CALCIUM 8.1 mg/dL (8.5-10.1); CREATININE 3.3 mg/dL (0.55-1.02)
[2016-11-17] MEDS ORDERED: POTASSIUM CHLORIDE TABS 20 MEQ TABLET.ER (FP) PO ONE (07:47)
[2016-11-17 08:07] LABS: SERUM IRON 64 ug/dL (27-139); TOTAL IRON BINDING CAPACITY 232 ug/dL (250-450); UIBC 168 ug/dL (118-369)
[2016-11-17] MEDS: PANTOPRAZOLE SODIUM 80 MG in SODIUM CHLORIDE 100 ML IVPB SCH (08:18)
[2016-11-17] MEDS: LOSARTAN POTASSIUM 50 MG TABLET (FP) PO SCH ×2 (08:26→10:12)
[2016-11-17] MEDS: NIFEdipine E.R 60 MG TABLET (UD) PO SCH ×2 (08:27→10:13)
[2016-11-17] MEDS ORDERED: POTASSIUM CHLORIDE TABS 10 MEQ TABLET.ER (FP) PO ONE (08:45)
--- NOTE | 2016-11-17 08:51 | PN ---
Physical Exam: SUBJECTIVE: Patient seen and examined Patient resting in bed comfortably, NAD. No acute events overnight. afebrile and hemodynamically stable. Hypertensive 180 sytolic. s/p 3 U pRBS and HD yesterday. Repeat H/H stable. No events on tele. Has been NPO since midnight for EGD this morning. Plan to do colonoscopy on mon if egd nonrevealing. She feels hungry and complains of mild sacral irritation. She denies dizzines, h/a, chest pain, sob, f/c, and pain, n/v. OBJECTIVE: Vital Signs Period Temp Pulse Resp BP Sys/Parker Pulse Ox Last 24 Hr 98 F-98.5 F 65-88 16-20 150-239/60-89 98-98 GENERAL: The patient is awake, alert, and fully oriented, in no acute distress. HEAD: Normal with no signs of trauma. EYES: PERRL, extraocular movements intact, sclera anicteric, conjunctiva clear. ENT: moist mucous membranes. NECK: supple. LUNGS: Breath sounds equal, clear to auscultation bilaterally, no wheezes HEART: Regular rate and rhythm, S1, S2 ABDOMEN: Soft, nontender, nondistended, normoactive bowel sounds EXTREMITIES: 2+ pulses, warm, well-perfused, no edema. NEUROLOGICAL: Cranial nerves II through XII grossly intact. Normal speech PSYCH: Normal mood, normal affect. SKIN: Warm, dry. sacral stage 1 ulcer Laboratory Results - last 24 hr 11/16/16 11/16/16 11/16/16 08:20 08:20 08:20 WBC RBC Hgb Hct MCV MCHC RDW Plt Count MPV Sodium 137 Potassium 4.4 Chloride 100 Carbon Dioxide 30 Anion Gap 7 L BUN 40 H D Creatinine 3.8 H D POC Glucometer Random Glucose 272 H Calcium 8.0 L Phosphorus 4.6 D Magnesium 2.4 Iron 64 TIBC 232 L Iron Saturation 28 Ferritin 755.987 H Cancelled 11/16/16 11/16/16 11/16/16 09:56 14:10 15:52 WBC RBC Hgb Hct MCV MCHC RDW Plt Count MPV Sodium Potassium Chloride Carbon Dioxide Anion Gap BUN Creatinine POC Glucometer 282 207 177 Random Glucose Calcium Phosphorus Magnesium Iron TIBC Iron Saturation Ferritin 11/16/16 11/16/16 11/17/16 17:00 22:01 05:35 WBC 9.5 9.4 RBC 3.02 L D 2.81 L Hgb 8.7 L D 8.5 L Hct 27.0 L D 25.0 L MCV 89.1 89.0 MCHC 32.2 33.9 RDW 15.0 14.8 Plt Count 172 172 MPV 9.5 9.1 Sodium Potassium Chloride Carbon Dioxide Anion Gap BUN Creatinine POC Glucometer 248 Random Glucose Calcium Phosphorus Magnesium Iron TIBC Iron Saturation Ferritin 11/17/16 11/17/16 05:35 06:09 WBC RBC Hgb Hct MCV MCHC RDW Plt Count MPV Sodium 138 Potassium 3.4 L D Chloride 98 Carbon Dioxide 33 H Anion Gap 7 L BUN 23 H D Creatinine 3.3 H POC Glucometer 218 Random Glucose 244 H Calcium 8.1 L Phosphorus Magnesium Iron TIBC Iron Saturation Ferritin Active Medications Generic Name Dose Route Start Last Admin Trade Name Freq PRN Reason Stop Dose Admin Pantoprazole Sodium 80 mg/ 100 mls @ 10 mls/hr 11/16/16 12:00 11/17/16 08:18 Sodium Chloride IVPB 10 mls/hr Q10H KARINA Administration 8 MG/HR Insulin Aspart 1 vial 11/16/16 06:00 11/17/16 06:16 Novolog Vial Sliding Scale - SQ 4 units Q4HPO KARINA Administration Protocol Labetalol HCl 200 mg 11/16/16 22:00 11/16/16 21:24 Normodyne - PO 200 mg HS KARINA Administration Labetalol HCl 400 mg 11/17/16 07:00 11/17/16 06:20 Normodyne - PO 400 mg AM KARINA Administration Labetalol HCl 200 mg 11/16/16 12:00 11/16/16 11:55 Normodyne - PO Not Given DAILY@1200 KARINA Losartan Potassium 100 mg 11/16/16 12:00 11/17/16 08:26 Cozaar - PO 100 mg DAILY KARINA Administration Nifedipine 60 mg 11/16/16 16:45 11/17/16 08:27 Procardia Xl - PO 60 mg DAILY KARINA Administration ASSESSMENT/PLAN: This is a 71 yo F with a PMH of CHF, IDDM, CVA 8 yrs ago, ESRD on HD (MWF), HTN , and chronic anemia, who presented to the ED from her dialysis center on 11/15 with nausea and dizziness, low H/H and guaiac + stool. Upper GI bleed -GI consult appreciated -NPO since midnight for EGD AM; if nonrevealing-colonoscopy Mon -Protonix drip -diet advance per GI Anemia (symptomatic, severe) -s/p transfusion 3 U PRBC with HD yesterday -symptoms resolved -repeat h/h stable 8.5/25 -AM cbc HTN -poorly controlled, 180's systolic this AM -on procardia xl 60, labetalol 800 daily split over 3 doses, losartan 100. Goal BP 170 systolic in setting of severe chronic HTN -recheck BP at noon, increase labetalol if BP>170's IDDM -sliding scale -BGM TID AC CHF -no clinical sign of volume overload -BMP elevated from baseline due to CKD -Daily weights, Strict Is and Os ESRD -On HD -s/p HD yesterday -HD tomorrow -Nephrology FEN: No IVF DVT GI PPX: SCD, no a/c, PPI NPO Dipso: monitor in med pam Problem List - Problems (1) Anemia Code(s): D64.9 - ANEMIA, UNSPECIFIED Qualifiers: Anemia type: unspecified type Qualified Code(s): D64.9 - Anemia, unspecified (2) Renal insufficiency Code(s): N28.9 - DISORDER OF KIDNEY AND URETER, UNSPECIFIED (3) Anemia, chronic renal failure Code(s): N18.9 - CHRONIC KIDNEY DISEASE, UNSPECIFIED D63.1 - ANEMIA IN CHRONIC KIDNEY DISEASE (4) CKD (chronic kidney disease) Code(s): N18.9 - CHRONIC KIDNEY DISEASE, UNSPECIFIED (5) Diabetes Code(s): E11.9 - TYPE 2 DIABETES MELLITUS WITHOUT COMPLICATIONS (6) ESRD (end stage renal disease) on dialysis Code(s): N18.6 - END STAGE RENAL DISEASE Z99.2 - DEPENDENCE ON RENAL DIALYSIS (7) Hyperlipidemia Code(s): E78.5 - HYPERLIPIDEMIA, UNSPECIFIED (8) Hypertension Code(s): I10 - ESSENTIAL (PRIMARY) HYPERTENSION (9) Congestive heart failure Code(s): I50.9 - HEART FAILURE, UNSPECIFIED Visit type - Emergency Visit Emergency Visit: No - New Patient This patient is new to me today: No - Critical Care Critical Care patient: No
--- NOTE | 2016-11-17 10:28 | MSN ---
Progress Note (SOAP) - Subjective History of Present Illness: Pt is a 71 y/o female with a pmh of CHF, DM, CVA 8 years ago, ESRD on HD, HTN, and chronic anemia who presented to the ED from her dialysis center on 11/15 with nausea and dizziness. She was getting her dialysis as part of her MWF regimen and she became nauseous, dizzy, weak, and had one episode of nbnb vomitus. Pt was in the hospital one week prior with anemia and a UTI, which were treated with 2 transfusions of prbcs and keflex, respectively. She is stool guaiac positive I saw and spoke to the pt this morning and she is cooperative but a little distressed. She has been npo since arrival and it has made her more agitated than yesterday. She claims that she was a little nauseous yesterday while her bp was rising but currently she is not experiencing any symptoms. She denies any current nausea, dizziness, h/a, shortness of breath, palpitations, or chest pain. She understands the procedure she is going for this morning (EGD) and why it is being done. - Current Medications Current Medications: Active Medications Pantoprazole Sodium 80 mg/ (Sodium Chloride) 100 mls @ 10 mls/hr IVPB Q10H KARINA PRN Reason: 8 MG/HR Last Admin: 11/17/16 08:18 Dose: 10 mls/hr Insulin Aspart (Novolog Vial Sliding Scale -) 1 vial SQ Q4HPO KARINA PRN Reason: Protocol Last Admin: 11/17/16 06:16 Dose: 4 units Labetalol HCl (Normodyne -) 200 mg PO HS [facility] Last Admin: 11/16/16 21:24 Dose: 200 mg Labetalol HCl (Normodyne -) 400 mg PO AM [facility] Last Admin: 11/17/16 06:20 Dose: 400 mg Labetalol HCl (Normodyne -) 200 mg PO DAILY@1200 [facility] Last Admin: 11/16/16 11:55 Dose: Not Given Losartan Potassium (Cozaar -) 100 mg PO DAILY [facility] Last Admin: 11/17/16 10:12 Dose: 100 mg Nifedipine (Procardia Xl -) 60 mg PO DAILY [facility] Last Admin: 11/17/16 10:13 Dose: 60 mg - Objective Vital Signs: Vital Signs Temperature 98.8 F 11/17/16 09:14 Pulse Rate 64 11/17/16 09:14 Respiratory Rate 18 11/17/16 09:14 Blood Pressure 184/74 11/17/16 09:14 O2 Sat by Pulse Oximetry (%) 98 11/17/16 09:00 Constitutional: Yes: Well Nourished, Mild Distress Cardiovascular: Yes: Regular Rate and Rhythm, JVD, Murmur (2/6 right 2nd ics radiating to neck), S1, S2 Respiratory: Yes: Regular, CTA Bilaterally (no wheezes, ronchi, or rales) Gastrointestinal: Yes: Normal Bowel Sounds, Soft Peripheral Pulses WNL: Yes (non palpable PT,) Peripheral Pulses: Left Doralis Pedis: 1+, Right Dorsalis Pedis: 1+ Edema: No Neurological: Yes: Alert, Oriented, Cran Nerves II-XII Intact ...Motor Strength: Yes: WNL Labs Lab Results: CBC, BMP 11/17/16 05:35 11/17/16 05:35 Assessment/Plan Anemia -H and H on admission was 5.1/15.9 -Possible GI bleed vs chronic kidney disease -3 units prbcs transfused on 11/16, 2 with HD -Morning CBC showed Hb of 8.5, hct of 25 -Aim to maintain the hb >8 -EGD with Dr. Diehl today at 1100 -f/u with results of EGD -Protonix IV drip ESRD -HD 11/16- REMOVED 1.5 kgs - continue schedule normally on MWF. -K down to 3.4, given 10meq Kcl DM -Novolog sliding scale HTN -BP increased throughout day yesterday, max of 230 systolic -Increased labetolol to 800 with a 3rd dose -Climbing again this morning, will f/u vitals after EGD -Can increase labetolol to 400 in early dose -continue nifedipine xl 60 and losartan 100
[2016-11-17] MEDS ORDERED: PROPOFOL 20 ML ONE (10:56)
--- NOTE | 2016-11-17 12:18 | PN ---
Progress Note (short form) - Note Progress Note: Renal Follow up for ESRD on HD Pt seen and examined at the bedside s/p EGD that showed gastritis no acute complaints at this time s/p dialysis yesterday Vital Signs Temperature 97.5 F L 11/17/16 10:50 Pulse Rate 64 11/17/16 11:20 Respiratory Rate 19 11/17/16 11:20 Blood Pressure 133/53 11/17/16 11:20 O2 Sat by Pulse Oximetry (%) 99 11/17/16 11:20 Intake & Output 11/14/16 11/15/16 11/16/16 11/17/16 23:59 23:59 23:59 23:59 Intake Total 240 250 Balance 240 250 Weight 139 lb 139 lb 128 lb 6.4 oz Gen: NAD, awake and alert CVS: RRR, no M/R Lungs: CTA, no rales or wheeze Abd: soft NT/ND Ext: No edema, clubbing or cyanosis Access: Left ARM AVF + thrill and bruit CBC, BMP 11/17/16 05:35 11/17/16 05:35 Current Medications Pantoprazole Sodium 80 mg/ (Sodium Chloride) 100 mls @ 10 mls/hr IVPB Q10H KARINA PRN Reason: 8 MG/HR Last Admin: 11/17/16 08:18 Dose: 10 mls/hr Insulin Aspart (Novolog Vial Sliding Scale -) 1 vial SQ Q4HPO KARINA PRN Reason: Protocol Last Admin: 11/17/16 12:01 Dose: 4 units Labetalol HCl (Normodyne -) 200 mg PO HS [facility] Last Admin: 11/16/16 21:24 Dose: 200 mg Labetalol HCl (Normodyne -) 400 mg PO AM [facility] Last Admin: 11/17/16 06:20 Dose: 400 mg Labetalol HCl (Normodyne -) 200 mg PO DAILY@1200 [facility] Last Admin: 11/16/16 11:55 Dose: Not Given Losartan Potassium (Cozaar -) 100 mg PO DAILY [facility] Last Admin: 11/17/16 10:12 Dose: 100 mg Nifedipine (Procardia Xl -) 60 mg PO DAILY [facility] Last Admin: 11/17/16 10:13 Dose: 60 mg a/P 71 year old woman with PMhx of ESRD on HD, Diabetic Nephropathy, Hypertension, CKD Related Anemia, DM who presented with weakness, dizziness and nausea and found to have acute on chronic anemia with Hgb of 5.9. #Acute on Chronic Anemia with positive stool occult blood/GI bleed s/p 3 unit prbc s/p EGD that showed gastritis for possible coloscopy on sunday trend cbc #ESRD on HD s/p HD yesterday no acute indication for dialysis today Next dialysis tomorrow #DM Continue Insulin sliding scale #Hypertension BP improved today Continue Losartan, Nifedipine, Labetalol Goal BP < [address] Alf Mcmahan DO
[2016-11-17] MEDS ORDERED: INSULIN (NOVOLOG) ASPART 100 UNITS/ML 10ML VIAL ONE (16:30)
--- NOTE | 2016-11-17 16:50 | PN ---
Teaching Attending Note Name of Resident: Sinai Segura ATTENDING PHYSICIAN STATEMENT I saw and evaluated the patient. I reviewed the resident's note and discussed the case with the resident. I agree with the resident's findings and plan as documented. SUBJECTIVE:continues to have black tarry stools but improved from previously. denies CP, SOB, fever, chills, abdominal pain, hematuria OBJECTIVE: Last Vital Signs Temp Pulse Resp BP Pulse Ox 97.8 F 68 20 145/58 98 11/17/16 15:18 11/17/16 15:18 11/17/16 15:18 11/17/16 15:18 11/17/16 12:17 General NAD CV S1 S2 RRR +murmur no rubs or gallops Abdomen soft NT/ND no rebound or guarding Extremities LUE palpable thrill ASSESSMENT AND PLAN: 71yo F wtih PMH ESRD on HD, CHF, HTN, CVA and DM presented to the ER and was admitted for further evaluation of their emergent condition 1. upper GI bleed-s/p 3 units PRBC with good response. EGD today showing ulceration and thickening of the ampulla. high concern for malignancy. CT scan with contrast ordered to further evaluate. will switch PPI ggt to po. Cancer markers ordered, follow up Bx report. trend H/H 2. Dizzyness- likely symptomatic from anemia 3. HTN- improved. labetolol and losartan increased. pressure now improved. monitor closely. 4. DM- advance diet. restart medications as needed, hold oral agents. iss,bgm 5. ESRD on HD- no indication for HD today. plan for HD after CT study tomorrow 6. CHF- no clinical signs of volume overload. likely falsely elevated BNP in setting ESRD. 7.DVT- no a/c in setting of bleed, SCD
--- NOTE | 2016-11-17 18:15 | PN ---
Progress Note (short form) - Note Progress Note: GI Procedure NOte: Please see EGd report. 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 Biopsies were taken but if not diagnostic then she may need biopsies using a side viewing ERCP scope. Have ordered CT. Informed the patient of my findings and suspicion through an sandwich wrapper.
[2016-11-18] MEDS: LABETALOL HCL 200 MG TABLET (FP) PO SCH ×3 (06:25→22:42)
[2016-11-18] MEDS: INSULIN SLIDING SCALE (NOVOLOG) 1 VIAL SQ SCH ×4 (06:27→22:42)
[2016-11-18 08:15] LABS: BASOPHIL 1.1 % (0-2.0); EOSINOPHIL 3.8 % (0-4.5); MCH 30.7 pg (25.7-33.7); MCHC 34.2 g/dl (32.0-36.0); MEAN CELL VOLUME 89.8 fl (80-96); MEAN PLT VOLUME 9.1 fl (7.5-11.1); NEUTROPHILS 71.7 % (42.8-82.8); PLATELET COUNT 165 K/MM3 (134-434); RDW 15.3 % (11.6-15.6); WHITE BLOOD COUNT 8.3 K/mm3 (4.0-10.0)
--- NOTE | 2016-11-18 09:29 | PN ---
Progress Note (short form) - Note Progress Note: resting comfortable. denies CP, SOB,fever, chills, N/V/C/D Current Medications Generic Name Dose Route Start Last Admin Trade Name Ignacio PRN Reason Stop Dose Admin Epoetin Arturo 10,000 unit 11/18/16 09:00 Procrit - IVPUSH 11/18/16 09:01 ONCE ONE Insulin Aspart 1 vial 11/17/16 22:00 11/18/16 06:27 Novolog Vial Sliding Scale - SQ 2 units ACHS KARINA Administration Protocol Labetalol HCl 200 mg 11/16/16 22:00 11/17/16 21:39 Normodyne - PO 200 mg HS KARINA Administration Labetalol HCl 400 mg 11/17/16 07:00 11/18/16 06:25 Normodyne - PO Not Given AM KARINA Labetalol HCl 200 mg 11/16/16 12:00 11/17/16 12:12 Normodyne - PO 200 mg DAILY@1200 KARINA Administration Losartan Potassium 100 mg 11/16/16 12:00 11/17/16 10:12 Cozaar - PO 100 mg DAILY KARINA Administration Nifedipine 60 mg 11/16/16 16:45 11/17/16 10:13 Procardia Xl - PO 60 mg DAILY KARINA Administration Pantoprazole Sodium 40 mg 11/18/16 10:00 Protonix - PO DAILY [facility] Last Vital Signs Temp Pulse Resp BP Pulse Ox 98.2 F 70 20 164/65 97 11/18/16 05:00 11/18/16 05:00 11/18/16 05:00 11/18/16 05:00 11/17/16 21:00 General NAD CV S1 S2 RRR +murmur no rubs or gallops Abdomen soft NT/ND no rebound or guarding Extremities LUE palpable thrill CBCD WBC 8.3 K/mm3 (4.0-10.0) 11/18/16 05:35 RBC 2.65 M/mm3 (3.60-5.2) L 11/18/16 05:35 Hgb 8.1 GM/dL (10.7-15.3) L 11/18/16 05:35 Hct 23.8 % (32.4-45.2) L 11/18/16 05:35 MCV 89.8 fl (80-96) 11/18/16 05:35 MCHC 34.2 g/dl (32.0-36.0) 11/18/16 05:35 RDW 15.3 % (11.6-15.6) 11/18/16 05:35 Plt Count 165 K/MM3 (134-434) 11/18/16 05:35 MPV 9.1 fl (7.5-11.1) 11/18/16 05:35 ASSESSMENT AND PLAN: 71yo F wtih PMH ESRD on HD, CHF, HTN, CVA and DM presented to the ER and was admitted for further evaluation of their emergent condition 1. upper GI bleed-s/p 3 units PRBC this hospitalization. EGD with concerns for ampullary malignancy. bx and tumor markers pending. plan for CT with contrast to further evaluate. small downtrend in Hgb, will repeat later today. 2. Dizzyness- likely symptomatic from anemia. resolved 3. HTN- improved. going for HD today so will wait on medication adjustment at this time as overall improved. monitor closely. 4. DM- controlled. cont iss only at this time as not requiring a lot of coverage. iss,bgm 5. ESRD on HD- plan for HD in the afternoon after CT scan. nephrology on board. 6. Hypokalemia- repleted yesterday, going for HD today 7.DVT- no a/c in setting of bleed, SCD Visit type - Emergency Visit Emergency Visit: Yes ED Registration Date: 11/16/16 Care time: The patient presented to the Emergency Department on the above date and was hospitalized for further evaluation of their emergent condition. - New Patient This patient is new to me today: No - Critical Care Critical Care patient: No - Discharge Referral Referred to [facility] Med P.C.: No
[2016-11-18] MEDS: PANTOPRAZOLE 40 MG TABLET (FP) PO SCH (09:56)
[2016-11-18] MEDS: LOSARTAN POTASSIUM 50 MG TABLET (FP) PO SCH (09:56)
[2016-11-18] MEDS: NIFEdipine E.R 60 MG TABLET (UD) PO SCH (09:56)
[2016-11-18 10:47] LABS: ALBUMIN 3.2 g/dl (3.4-5.0); BILIRUBIN,DIRECT 0.1 mg/dL (0.0-0.2); BILIRUBIN,TOTAL 0.6 mg/dL (0.2-1.0); C-REACTIVE PROTEIN 0.5 MG/DL (0.00-0.3); CALCIUM 8.5 mg/dL (8.5-10.1); CREATININE 5.4 mg/dL (0.55-1.02); TOT PROT 5.7 g/dl (6.4-8.2)
--- NOTE | 2016-11-18 11:33 | PN ---
GI Progress Note Subjective: GI NOte: NO adverse effects following EGD. Still having black stools. Hb down to 8.1. 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 CT scan pending. Will be done today with dialysis to follow. Will follow CBCs
[2016-11-18 12:55] LABS: MCH 30.2 pg (25.7-33.7); MCHC 33.8 g/dl (32.0-36.0); MEAN CELL VOLUME 89.6 fl (80-96); MEAN PLT VOLUME 9.1 fl (7.5-11.1); PLATELET COUNT 165 K/MM3 (134-434); RDW 15.1 % (11.6-15.6); WHITE BLOOD COUNT 7.1 K/mm3 (4.0-10.0)
--- NOTE | 2016-11-18 14:06 | PN ---
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 EGD for cT scan today pt without complaints Vital Signs Temperature 98.2 F 11/18/16 09:00 Pulse Rate 65 11/18/16 09:00 Respiratory Rate 18 11/18/16 09:00 Blood Pressure 194/70 11/18/16 09:00 O2 Sat by Pulse Oximetry (%) 97 11/17/16 21:00 Intake & Output 11/15/16 11/16/16 11/17/16 11/18/16 23:59 23:59 23:59 23:59 Intake Total 240 610 Balance 240 610 Weight 139 lb 139 lb 128 lb 6.4 oz 139 lb 12.8 oz Gen: NAD, awake and alert CVS: RRR, no M/R Lungs: CTA, no rales or wheeze Abd: soft NT/ND Ext: No edema, clubbing or cyanosis Access: Left ARM AVF + thrill and bruit CBC, BMP 11/18/16 12:30 11/18/16 05:35 Current Medications Epoetin Arturo (Procrit -) 10,000 unit IVPUSH ONCE ONE Stop: 11/18/16 09:01 Insulin Aspart (Novolog Vial Sliding Scale -) 1 vial SQ ACHS [facility] PRN Reason: Protocol Last Admin: 11/18/16 12:12 Dose: 6 units Labetalol HCl (Normodyne -) 200 mg PO HS [facility] Last Admin: 11/17/16 21:39 Dose: 200 mg Labetalol HCl (Normodyne -) 400 mg PO AM [facility] Last Admin: 11/18/16 06:25 Dose: Not Given Labetalol HCl (Normodyne -) 200 mg PO DAILY@1200 [facility] Last Admin: 11/17/16 12:12 Dose: 200 mg Losartan Potassium (Cozaar -) 100 mg PO DAILY [facility] Last Admin: 11/18/16 09:56 Dose: 100 mg Nifedipine (Procardia Xl -) 60 mg PO DAILY [facility] Last Admin: 11/18/16 09:56 Dose: 60 mg Pantoprazole Sodium (Protonix -) 40 mg PO DAILY [facility] Last Admin: 11/18/16 09:56 Dose: 40 mg Spironolactone (Aldactone -) 25 mg PO DAILY [facility] a/P 71 year old woman with PMhx of ESRD on HD, Diabetic Nephropathy, Hypertension, CKD Related Anemia, DM who presented with weakness, dizziness and nausea and found to have acute on chronic anemia with Hgb of 5.9. 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
[2016-11-18] MEDS ORDERED: EPOETIN ALFA 10,000 UNIT/1 ML VIAL IVPUSH ONE (18:30)
[2016-11-18 18:40] LABS: MCH 29.4 pg (25.7-33.7); MCHC 32.7 g/dl (32.0-36.0); MEAN CELL VOLUME 89.7 fl (80-96); MEAN PLT VOLUME 9.4 fl (7.5-11.1); PLATELET COUNT 170 K/MM3 (134-434); RDW 14.8 % (11.6-15.6)
[2016-11-18 19:12] LABS: ALBUMIN 3.3 g/dl (3.4-5.0); BILIRUBIN,TOTAL 0.6 mg/dL (0.2-1.0); CALCIUM 7.7 mg/dL (8.5-10.1); CREATININE 6.3 mg/dL (0.55-1.02); PHOSPHOROUS 6.1 mg/dL (2.5-4.9)
[2016-11-18] MEDS: SPIRONOLACTONE 25 MG TABLET (FP) PO SCH (22:41)
[2016-11-18 23:27] LABS: CREATININE 1.7 mg/dL (0.55-1.02)
[2016-11-19] MEDS: INSULIN SLIDING SCALE (NOVOLOG) 1 VIAL SQ SCH ×4 (06:15→22:10)
[2016-11-19] MEDS: LABETALOL HCL 200 MG TABLET (FP) PO SCH ×3 (06:15→22:05)
[2016-11-19 08:10] LABS: BASOPHIL 0.8 % (0-2.0); EOSINOPHIL 1.9 % (0-4.5); MCH 30.2 pg (25.7-33.7); MCHC 34.3 g/dl (32.0-36.0); MEAN PLT VOLUME 9.1 fl (7.5-11.1); NEUTROPHILS 81.4 % (42.8-82.8); PLATELET COUNT 166 K/MM3 (134-434); RDW 15.8 % (11.6-15.6)
[2016-11-19] MEDS ORDERED: NIFEdipine E.R 60 MG TABLET (UD) PO SCH (08:38)
[2016-11-19 08:41] LABS: ALBUMIN 3.1 g/dl (3.4-5.0); BILIRUBIN,DIRECT 0.2 mg/dL (0.0-0.2); BILIRUBIN,TOTAL 0.7 mg/dL (0.2-1.0); C-REACTIVE PROTEIN 0.6 MG/DL (0.00-0.3); CALCIUM 8.3 mg/dL (8.5-10.1); CREATININE 3.3 mg/dL (0.55-1.02); TOT PROT 5.8 g/dl (6.4-8.2)
--- NOTE | 2016-11-19 09:40 | PN ---
Progress Note (short form) - Note Progress Note: Had ZENDEJAS in the evening that has persisted till this morning, states it started after HD. continues to have black tarry stools, been having BM daily. denies CP , SOB,fever, chills, N/V/C/D Current Medications Generic Name Dose Route Start Last Admin Trade Name Ignacio PRN Reason Stop Dose Admin Insulin Aspart 1 vial 11/17/16 22:00 11/19/16 06:15 Novolog Vial Sliding Scale - SQ Not Given ACHS KARIAN Protocol Labetalol HCl 200 mg 11/16/16 22:00 11/18/16 22:42 Normodyne - PO 200 mg HS KARINA Administration Labetalol HCl 400 mg 11/17/16 07:00 11/19/16 06:15 Normodyne - PO 400 mg AM KARINA Administration Labetalol HCl 200 mg 11/16/16 12:00 11/18/16 22:41 Normodyne - PO Not Given DAILY@1200 KARINA Losartan Potassium 100 mg 11/16/16 12:00 11/18/16 09:56 Cozaar - PO 100 mg DAILY KARINA Administration Nifedipine 60 mg 11/19/16 10:00 Procardia Xl - PO BID KARINA Pantoprazole Sodium 40 mg 11/18/16 10:00 11/18/16 09:56 Protonix - PO 40 mg DAILY KARINA Administration Spironolactone 25 mg 11/18/16 11:00 11/18/16 22:41 Aldactone - PO Not Given DAILY [facility] Last Vital Signs Temp Pulse Resp BP Pulse Ox 97.9 F 68 20 208/84 98 11/19/16 06:00 11/19/16 06:00 11/19/16 06:00 11/19/16 06:00 11/18/16 21:00 General NAD CV S1 S2 RRR +murmur no rubs or gallops Abdomen soft NT/ND no rebound or guarding Extremities LUE palpable thrill CBCD WBC 10.0 K/mm3 (4.0-10.0) 11/19/16 05:35 RBC 3.09 M/mm3 (3.60-5.2) L 11/19/16 05:35 Hgb 9.3 GM/dL (10.7-15.3) L D 11/19/16 05:35 Hct 27.2 % (32.4-45.2) L 11/19/16 05:35 MCV 88.0 fl (80-96) 11/19/16 05:35 MCHC 34.3 g/dl (32.0-36.0) 11/19/16 05:35 RDW 15.8 % (11.6-15.6) H 11/19/16 05:35 Plt Count 166 K/MM3 (134-434) 11/19/16 05:35 MPV 9.1 fl (7.5-11.1) 11/19/16 05:35 CMP Sodium 135 mmol/L (136-145) L 11/19/16 05:35 Potassium 3.6 mmol/L (3.5-5.1) 11/19/16 05:35 Chloride 99 mmol/L (98-107) 11/19/16 05:35 Carbon Dioxide 30 mmol/L (21-32) 11/19/16 05:35 Anion Gap 6 (8-16) L 11/19/16 05:35 BUN 20 mg/dL (7-18) H D 11/19/16 05:35 Creatinine 3.3 mg/dL (0.55-1.02) H D 11/19/16 05:35 Creat Clearance w eGFR 6.53 (>60) 11/18/16 18:20 Calcium 8.3 mg/dL (8.5-10.1) L 11/19/16 05:35 Total Bilirubin 0.7 mg/dL (0.2-1.0) 11/19/16 05:35 AST 14 U/L (15-37) L 11/19/16 05:35 ALT 16 U/L (12-78) 11/19/16 05:35 Alkaline Phosphatase 71 U/L (45-117) 11/19/16 05:35 Total Protein 5.8 g/dl (6.4-8.2) L 11/19/16 05:35 Albumin 3.1 g/dl (3.4-5.0) L 11/19/16 05:35 ASSESSMENT AND PLAN: 71yo F wtih PMH ESRD on HD, CHF, HTN, CVA and DM presented to the ER and was admitted for further evaluation of their emergent condition 1. upper GI bleed-1 unit PRBC yesterday with HD. s/p 4 units PRBC this hospitalization. CT done yesterday to evalute for ampullary malignancy, no official read yet. CEA and 19-9 both negative. will possibly still reuqire colonoscopy tomorrow. will d/w GI to start bowel prep or not. cont to trend Hgb. Txn for <8. 2. ZENDEJAS- likely due to uncontrolled HTN. tylenol prn 3. HTN-elevated this morning but responded well to home medciations now 170/80. going for HD today so will wait on medication adjustment at this time as overall improved. monitor closely. 4. DM- controlled. cont iss only at this time as not requiring a lot of coverage. iss,bgm 5. ESRD on HD- plan for HD in the afternoon after CT scan. nephrology on board. 6. Hypokalemia- repleted yesterday, going for HD today 7.DVT- no a/c in setting of bleed, SCD Visit type - Emergency Visit Emergency Visit: Yes ED Registration Date: 11/16/16 Care time: The patient presented to the Emergency Department on the above date and was hospitalized for further evaluation of their emergent condition. - New Patient This patient is new to me today: No - Critical Care Critical Care patient: No - Discharge Referral Referred to [facility] Med P.C.: No
[2016-11-19] MEDS: NIFEdipine E.R 60 MG TABLET (UD) PO SCH ×2 (09:44→22:05)
[2016-11-19] MEDS: SPIRONOLACTONE 25 MG TABLET (FP) PO SCH (09:44)
[2016-11-19] MEDS: PANTOPRAZOLE 40 MG TABLET (FP) PO SCH (09:45)
[2016-11-19] MEDS: LOSARTAN POTASSIUM 50 MG TABLET (FP) PO SCH (09:45)
[2016-11-19] MEDS ORDERED: ACETAMINOPHEN 325 MG TABLET (FP) PO PRN (10:08)
[2016-11-19] MEDS ORDERED: INSULIN (NOVOLOG) ASPART 100 UNITS/ML 10ML VIAL ONE (11:57)
[2016-11-19 13:10] LABS: MCH 30.2 pg (25.7-33.7); MEAN CELL VOLUME 88.9 fl (80-96); MEAN PLT VOLUME 8.9 fl (7.5-11.1); PLATELET COUNT 173 K/MM3 (134-434); WHITE BLOOD COUNT 9.4 K/mm3 (4.0-10.0)
--- NOTE | 2016-11-19 16:08 | PN ---
GI Progress Note Subjective: GI NOte: CT scan reveals an ampullary prominence with some intrahepatic and pancreatic ductal dilation. 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 I have discussed the likely need for ERCP for more adequate biopsies and for stent insertion before high grade obstruction ensues. Ca 19.9 is 13. - Objective Vital Signs: Vital Signs Temperature 98.4 F 11/19/16 09:00 Pulse Rate 74 11/19/16 14:00 Respiratory Rate 20 11/19/16 14:00 Blood Pressure 147/62 11/19/16 14:00 O2 Sat by Pulse Oximetry (%) 100 11/19/16 09:00 CBC,CMP WBC 9.4 K/mm3 (4.0-10.0) 11/19/16 12:40 RBC 3.14 M/mm3 (3.60-5.2) L 11/19/16 12:40 Hgb 9.5 GM/dL (10.7-15.3) L 11/19/16 12:40 Hct 27.9 % (32.4-45.2) L 11/19/16 12:40 MCV 88.9 fl (80-96) 11/19/16 12:40 MCHC 34.0 g/dl (32.0-36.0) 11/19/16 12:40 RDW 16.0 % (11.6-15.6) H 11/19/16 12:40 Plt Count 173 K/MM3 (134-434) 11/19/16 12:40 MPV 8.9 fl (7.5-11.1) 11/19/16 12:40 Neutrophils % 81.4 % (42.8-82.8) 11/19/16 05:35 Lymphocytes % 7.5 % (8-40) L D 11/19/16 05:35 Monocytes % 8.4 % (3.8-10.2) 11/19/16 05:35 Eosinophils % 1.9 % (0-4.5) 11/19/16 05:35 Basophils % 0.8 % (0-2.0) 11/19/16 05:35 Band Neutrophils 7.0 % (0-10) 11/15/16 19:43 Platelet Estimate Adequate (NORMAL) 11/15/16 19:43 Anisocytosis 2+ 11/15/16 19:43 Retic Count 4.03 % (0.5-1.5) H D 11/19/16 05:35 Sodium 135 mmol/L (136-145) L 11/19/16 05:35 Potassium 3.6 mmol/L (3.5-5.1) 11/19/16 05:35 Chloride 99 mmol/L (98-107) 11/19/16 05:35 Carbon Dioxide 30 mmol/L (21-32) 11/19/16 05:35 Anion Gap 6 (8-16) L 11/19/16 05:35 BUN 20 mg/dL (7-18) H D 11/19/16 05:35 Creatinine 3.3 mg/dL (0.55-1.02) H D 11/19/16 05:35 Creat Clearance w eGFR 6.53 (>60) 11/18/16 18:20 POC Glucometer 291 UNITS (()) 11/19/16 11:40 Random Glucose 214 mg/dL (74-106) H 11/19/16 05:35 Calcium 8.3 mg/dL (8.5-10.1) L 11/19/16 05:35 Phosphorus 6.1 mg/dL (2.5-4.9) H D 11/18/16 18:20 Magnesium 2.4 mg/dL (1.8-2.4) 11/16/16 08:20 Iron 64 ug/dL (27-139) 11/16/16 08:20 TIBC 232 ug/dL (250-450) L 11/16/16 08:20 Iron Saturation 28 % (15-55) 11/16/16 08:20 Ferritin 755.987 ng/ml (6.9-282.5) H 11/16/16 08:20 Total Bilirubin 0.7 mg/dL (0.2-1.0) 11/19/16 05:35 Direct Bilirubin 0.2 mg/dL (0.0-0.2) D 11/19/16 05:35 GGT 15 U/L (5-85) 11/18/16 05:35 AST 14 U/L (15-37) L 11/19/16 05:35 ALT 16 U/L (12-78) 11/19/16 05:35 Alkaline Phosphatase 71 U/L (45-117) 11/19/16 05:35 C-Reactive Protein 0.6 MG/DL (0.00-0.3) H D 11/19/16 05:35 B-Natriuretic Peptide 40279.06 pg/ml (5-125) H 11/15/16 19:43 Total Protein 5.8 g/dl (6.4-8.2) L 11/19/16 05:35 Albumin 3.1 g/dl (3.4-5.0) L 11/19/16 05:35 Total Amylase 42 U/L (25-115) 11/19/16 05:35 Lipase 128 U/L (73-393) 11/19/16 05:35 Carcinoembryonic Ag 4.7 ng/mL (0.0-4.7) 11/18/16 05:35 CA 19-9 Antigen 13 U/mL (0-35) 11/18/16 05:35 Constitutional: No Distress ...Auscultate: Yes: Normoactive Bowel Sounds ...Palpate: Yes: Soft, Other (nontender) Labs: CBC, BMP 11/19/16 12:40 11/19/16 05:35 INR, PTT INR 1.08 (0.82-1.09) 11/15/16 19:43 Laboratory Tests 11/15/16 11/18/16 11/18/16 19:43 05:35 05:35 WBC Hgb 8.1 L Hct 23.8 L Retic Count INR 1.08 Total Bilirubin Direct Bilirubin AST ALT Alkaline Phosphatase Lipase CA 19-9 Antigen 13 11/19/16 11/19/16 11/19/16 05:35 05:35 12:40 WBC 9.4 Hgb Hct Retic Count 4.03 H D INR Total Bilirubin 0.7 Direct Bilirubin 0.2 D AST 14 L ALT 16 Alkaline Phosphatase 71 Lipase 128 CA 19-9 Antigen Assessment/Plan I have discussed the potential for such complications as perforation and hemorrhage as well as multiorgan failure that can ensue with ERCP induced pancreatitis. Hali has signed an informed consent. Await biopsies before scheduling. I discussed the likely need masha she may need to have this ERCP done at a tertiary care center.
[2016-11-20] MEDS: INSULIN SLIDING SCALE (NOVOLOG) 1 VIAL SQ SCH ×4 (06:24→21:40)
[2016-11-20] MEDS: LABETALOL HCL 200 MG TABLET (FP) PO SCH ×3 (06:24→21:36)
[2016-11-20 07:49] LABS: BASOPHIL 1.1 % (0-2.0); EOSINOPHIL 4.7 % (0-4.5); MCH 29.9 pg (25.7-33.7); MEAN PLT VOLUME 9.4 fl (7.5-11.1); NEUTROPHILS 70.7 % (42.8-82.8); PLATELET COUNT 164 K/MM3 (134-434); RDW 15.4 % (11.6-15.6); WHITE BLOOD COUNT 7.8 K/mm3 (4.0-10.0)
[2016-11-20 08:11] LABS: CALCIUM 7.6 mg/dL (8.5-10.1); CREATININE 5.8 mg/dL (0.55-1.02)
[2016-11-20] MEDS: PANTOPRAZOLE 40 MG TABLET (FP) PO SCH (09:12)
[2016-11-20] MEDS: LOSARTAN POTASSIUM 50 MG TABLET (FP) PO SCH (09:13)
[2016-11-20] MEDS: SPIRONOLACTONE 25 MG TABLET (FP) PO SCH (09:13)
[2016-11-20] MEDS: NIFEdipine E.R 60 MG TABLET (UD) PO SCH ×2 (09:13→21:37)
[2016-11-20] MEDS ORDERED: EPOETIN ALFA 20,000 UNIT/1 ML VIAL IVPUSH ONE (10:00)
--- NOTE | 2016-11-20 10:01 | PN ---
Progress Note (short form) - Note Progress Note: Renal Follow up for ESRD on HD Pt seen and examined at the bedside complains of some tenderness her her buttock when sitting no sob, chest pain BP has improved Vital Signs Temperature 98.0 F 11/20/16 06:00 Pulse Rate 70 11/20/16 06:00 Respiratory Rate 20 11/20/16 06:00 Blood Pressure 147/50 11/20/16 06:00 O2 Sat by Pulse Oximetry (%) 98 11/19/16 20:30 Intake & Output 11/17/16 11/18/16 11/19/16 11/20/16 23:59 23:59 23:59 23:59 Intake Total 610 Balance 610 Weight 128 lb 6.4 oz 139 lb 12.8 oz 138 lb 12.8 oz 141 lb Gen: NAD, awake and alert CVS: RRR, no M/R Lungs: CTA, no rales or wheeze Abd: soft NT/ND Ext: No edema, clubbing or cyanosis Access: Left ARM AVF + thrill and bruit CBC, BMP 11/20/16 05:35 11/20/16 05:35 Current Medications Acetaminophen (Tylenol -) 650 mg PO Q4H PRN PRN Reason: FEVER OR PAIN Epoetin Arturo (Procrit -) 20,000 unit IVPUSH ONCE ONE Stop: 11/20/16 10:01 Insulin Aspart (Novolog Vial Sliding Scale -) 1 vial SQ ACHS [facility] PRN Reason: Protocol Last Admin: 11/20/16 06:24 Dose: 2 units Labetalol HCl (Normodyne -) 400 mg PO AM [facility] Last Admin: 11/20/16 06:24 Dose: Not Given Labetalol HCl (Normodyne -) 200 mg PO DAILY@1200 [facility] Last Admin: 11/19/16 12:03 Dose: 200 mg Labetalol HCl (Normodyne -) 400 mg PO HS [facility] Last Admin: 11/19/16 22:05 Dose: 400 mg Losartan Potassium (Cozaar -) 100 mg PO DAILY [facility] Last Admin: 11/20/16 09:13 Dose: 100 mg Nifedipine (Procardia Xl -) 60 mg PO BID [facility] Last Admin: 11/20/16 09:13 Dose: 60 mg Pantoprazole Sodium (Protonix -) 40 mg PO DAILY [facility] Last Admin: 11/20/16 09:12 Dose: 40 mg Spironolactone (Aldactone -) 25 mg PO DAILY [facility] Last Admin: 11/20/16 09:13 Dose: 25 mg a/P 71 year old woman with PMhx of ESRD on HD, Diabetic Nephropathy, Hypertension, CKD Related Anemia, DM who presented with weakness, dizziness and nausea and found to have acute on chronic anemia with Hgb of 5.9. 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
--- NOTE | 2016-11-20 12:13 | PN ---
Progress Note (short form) - Note Progress Note: GI: Hali is in dialysis. Pathology not yet available. Given her CBD and pancreatic duct dilation will proceed with ERCP tomorrow to better examine examine the ampulla and if neoplastic obstructive process is found will place a stent.
--- NOTE | 2016-11-20 13:32 | PN ---
Progress Note (short form) - Note Progress Note: continues to have melanotic stools. intermittent dizzyness, today during HD. none currently. denies CP, SOB,fever, chills, N/V/C/D Current Medications Generic Name Dose Route Start Last Admin Trade Name Freq PRN Reason Stop Dose Admin Acetaminophen 650 mg 11/19/16 10:08 Tylenol - PO Q4H PRN FEVER OR PAIN Insulin Aspart 1 vial 11/17/16 22:00 11/20/16 11:54 Novolog Vial Sliding Scale - SQ Not Given ACHS [facility] Protocol Labetalol HCl 400 mg 11/17/16 07:00 11/20/16 06:24 Normodyne - PO Not Given AM [facility] Labetalol HCl 200 mg 11/16/16 12:00 11/20/16 11:54 Normodyne - PO Not Given DAILY@1200 [facility] Labetalol HCl 400 mg 11/19/16 10:07 11/19/16 22:05 Normodyne - PO 400 mg HS [facility] Administration Losartan Potassium 100 mg 11/16/16 12:00 11/20/16 09:13 Cozaar - PO 100 mg DAILY [facility] Administration Nifedipine 60 mg 11/19/16 10:00 11/20/16 09:13 Procardia Xl - PO 60 mg BID [facility] Administration Pantoprazole Sodium 40 mg 11/18/16 10:00 11/20/16 09:12 Protonix - PO 40 mg DAILY [facility] Administration Spironolactone 25 mg 11/18/16 11:00 11/20/16 09:13 Aldactone - PO 25 mg DAILY [facility] Administration Last Vital Signs Temp Pulse Resp BP Pulse Ox 97.8 F 77 18 138/78 100 11/20/16 10:00 11/20/16 13:10 11/20/16 13:10 11/20/16 13:10 11/20/16 09:00 General NAD CV S1 S2 RRR +murmur no rubs or gallops Abdomen soft NT/ND no rebound or guarding Extremities LUE palpable thrill CBCD WBC 7.8 K/mm3 (4.0-10.0) 11/20/16 05:35 RBC 2.87 M/mm3 (3.60-5.2) L 11/20/16 05:35 Hgb 8.6 GM/dL (10.7-15.3) L 11/20/16 05:35 Hct 25.3 % (32.4-45.2) L 11/20/16 05:35 MCV 88.0 fl (80-96) 11/20/16 05:35 MCHC 34.0 g/dl (32.0-36.0) 11/20/16 05:35 RDW 15.4 % (11.6-15.6) 11/20/16 05:35 Plt Count 164 K/MM3 (134-434) 11/20/16 05:35 MPV 9.4 fl (7.5-11.1) 11/20/16 05:35 CMP Sodium 137 mmol/L (136-145) 11/20/16 05:35 Potassium 3.7 mmol/L (3.5-5.1) 11/20/16 05:35 Chloride 97 mmol/L (98-107) L 11/20/16 05:35 Carbon Dioxide 29 mmol/L (21-32) 11/20/16 05:35 Anion Gap 11 (8-16) 11/20/16 05:35 BUN 50 mg/dL (7-18) H D 11/20/16 05:35 Creatinine 5.8 mg/dL (0.55-1.02) H D 11/20/16 05:35 Creat Clearance w eGFR 6.53 (>60) 11/18/16 18:20 Calcium 7.6 mg/dL (8.5-10.1) L 11/20/16 05:35 Total Bilirubin 0.7 mg/dL (0.2-1.0) 11/19/16 05:35 AST 14 U/L (15-37) L 11/19/16 05:35 ALT 16 U/L (12-78) 11/19/16 05:35 Alkaline Phosphatase 71 U/L (45-117) 11/19/16 05:35 Total Protein 5.8 g/dl (6.4-8.2) L 11/19/16 05:35 Albumin 3.1 g/dl (3.4-5.0) L 11/19/16 05:35 ASSESSMENT AND PLAN: 71yo F wtih PMH ESRD on HD, CHF, HTN, CVA and DM presented to the ER and was admitted for further evaluation of their emergent condition 1. upper GI bleed-s/p 4 units PRBC this hospitalization. concern for ampullary cancer. will repeat hgb this afternoon as slight decrease in Hgb. txn to maintain Hgb >8, NPO tonight for ERCP in the AM. CEA and 19-9 negative.GI on board. 2. HTN- improved. 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 levels pending. cont current management 3. DM- controlled. cont iss only at this time as not requiring a lot of coverage. iss,bgm 4. ESRD on HD- HD this AM. tolerated well. nephrology on board. 5. Hypokalemia- stable. s/p HD 6.DVT- no a/c in setting of bleed, SCD Visit type - Emergency Visit Emergency Visit: Yes ED Registration Date: 11/16/16 Care time: The patient presented to the Emergency Department on the above date and was hospitalized for further evaluation of their emergent condition. - New Patient This patient is new to me today: No - Critical Care Critical Care patient: No - Discharge Referral Referred to [facility] Med P.C.: No
--- NOTE | 2016-11-20 14:40 | PATH ---
Surgical Pathology Report Patient Name: AIDA BONILLA [facility]. Rec. #: [id number] /Age/Gender: 1945 (Age: 71) / F Account: [id number] Location: 4 W TELEMETRY U Taken: 11/17/2016 Received: 11/17/2016 Reported: 11/20/2016 Physicians: Nima Diehl M.D. 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 AMPULLA OF VATER, BIOPSY: SUPERFICIAL FRAGMENTS OF ULCERATED DUODENAL MUCOSA WITH ACTIVE AND CHRONIC INFLAMMATION AND INFLAMED GRANULATION TISSUE WITH FOCAL AREA SUGGESTIVE OF ULCERATED GASTRIC HETEROTOPIA. NO DYSPLASIA/ADENOMA OR CACINOMA IDENTIFIED. B. DUODENUM, SECOND PORTION AND BULB, BIOPSY: DUODENAL MUCOSA WITH FOCAL ACTIVE AND CHRONIC INFLAMMATION, FOCAL DANIEL'S GLAND HYPERPLASIA AND FOCAL GASTRIC METAPLASIA CONSISTENT WITH PEPTIC DUODENITIS. NO HISTOLOGIC EVIDENCE OF GLUTEN SENSITIVE ENTEROPATHY (CELIAC DISEASE). C. STOMACH, ANTRUM, BIOPSY: GASTRIC ANTRAL MUCOSA WITH MODERATE CHRONIC GASTRITIS WITH EXTENSIVE INTESTINAL METAPLASIA AND REACTIVE GASTROPATHY. NEGATIVE FOR DYSPLASIA. IMMUNOSTAIN FOR H. PYLORI IS NEGATIVE FOR ORGANISMS. Electronically Signed Farhan Ware M.D. Gross Description A. Received in formalin, labeled "biopsy ampulla of Vater" are 4 forrester-brown, irregular portions of soft tissue ranging from 0.2-0.4 cm in greatest dimension. The specimens are submitted in toto in one cassette. B. Received in formalin, labeled "biopsy second portion of duodenum and bulb" are 3 forrester, irregular portions of soft tissue ranging from 0.3-0.5 cm in greatest dimension. The specimens are submitted in toto in one cassette. C. Received in formalin, labeled "biopsy antrum" are 5 forrester, irregular portions of soft tissue ranging from 0.1-0.4 cm in greatest dimension. The specimens are submitted in toto in one cassette. 11/17/201611/17/2016
[2016-11-20 16:16] LABS: MCH 28.8 pg (25.7-33.7); MCHC 32.5 g/dl (32.0-36.0); MEAN CELL VOLUME 88.5 fl (80-96); MEAN PLT VOLUME 9.1 fl (7.5-11.1); PLATELET COUNT 174 K/MM3 (134-434); RDW 15.3 % (11.6-15.6); WHITE BLOOD COUNT 7.9 K/mm3 (4.0-10.0)
[2016-11-21] MEDS: INSULIN SLIDING SCALE (NOVOLOG) 1 VIAL SQ SCH ×4 (06:32→21:49)
[2016-11-21] MEDS: LABETALOL HCL 200 MG TABLET (FP) PO SCH ×3 (06:32→21:49)
[2016-11-21 08:35] LABS: CALCIUM 8.7 mg/dL (8.5-10.1); CREATININE 4.4 mg/dL (0.55-1.02)
[2016-11-21 09:40] LABS: MCH 30.1 pg (25.7-33.7); MCHC 33.8 g/dl (32.0-36.0); MEAN PLT VOLUME 9.6 fl (7.5-11.1); PLATELET COUNT 179 K/MM3 (134-434); RDW 15.1 % (11.6-15.6)
[2016-11-21] MEDS: NIFEdipine E.R 60 MG TABLET (UD) PO SCH ×2 (10:05→21:49)
[2016-11-21] MEDS: PANTOPRAZOLE 40 MG TABLET (FP) PO SCH (10:05)
[2016-11-21] MEDS: LOSARTAN POTASSIUM 50 MG TABLET (FP) PO SCH (10:05)
[2016-11-21] MEDS: SPIRONOLACTONE 25 MG TABLET (FP) PO SCH (10:05)
--- NOTE | 2016-11-21 10:44 | PN ---
<Dani Lebron - Last Filed: 11/21/16 14:42> Physical Exam: ATTENDING PHYSICIAN STATEMENT I saw and evaluated the patient. I reviewed the resident's note and discussed the case with the resident. I agree with the resident's findings and plan as documented. 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 No acute events overnight. afebrile and hemodynamically stable. Normotensive in the AM 120/62, did not receive her AM labetalol 400 due to lower than usual BP, Pressure than elevated to over 200 systolic. s/p HD yesterday. ERCP postponed until tomorrow due to hypertension, plan HD today. Repeat H/H stable. No events on tele. She still reports some melena. She denies dizzines, h/a, chest pain, sob, f/c, abd pain, n/v. OBJECTIVE: Vital Signs Period Temp Pulse Resp BP Sys/Parker Pulse Ox Last 24 Hr 97.9 F-98.6 F 66-85 14-20 109-196/56-79 100 GENERAL: The patient is awake, alert, and fully oriented, in no acute distress. HEAD: Normal with no signs of trauma. EYES: PERRL, extraocular movements intact, sclera anicteric, conjunctiva clear. ENT: moist mucous membranes. NECK: supple. LUNGS: Breath sounds equal, clear to auscultation bilaterally, no wheezes HEART: Regular rate and rhythm, S1, S2 ABDOMEN: Soft, nontender, nondistended, normoactive bowel sounds EXTREMITIES: 2+ pulses, warm, well-perfused, no edema. NEUROLOGICAL: Cranial nerves II through XII grossly intact. Normal speech PSYCH: Normal mood, normal affect. SKIN: Warm, dry. sacral stage 1 ulcer Laboratory Results - last 24 hr 11/20/16 11/20/16 11/20/16 16:00 17:16 21:39 WBC 7.9 RBC 3.25 L Hgb 9.4 L Hct 28.8 L MCV 88.5 MCHC 32.5 RDW 15.3 Plt Count 174 MPV 9.1 Sodium Potassium Chloride Carbon Dioxide Anion Gap BUN Creatinine POC Glucometer 395 134 Random Glucose Calcium 11/21/16 11/21/16 11/21/16 05:35 05:35 06:31 WBC 8.0 RBC 3.12 L Hgb 9.4 L Hct 27.7 L MCV 89.0 MCHC 33.8 RDW 15.1 Plt Count 179 MPV 9.6 Sodium 139 Potassium 3.9 Chloride 98 Carbon Dioxide 30 Anion Gap 11 BUN 25 H D Creatinine 4.4 H D POC Glucometer 183 Random Glucose 183 H Calcium 8.7 Active Medications Generic Name Dose Route Start Last Admin Trade Name Freq PRN Reason Stop Dose Admin Acetaminophen 650 mg 11/19/16 10:08 Tylenol - PO Q4H PRN FEVER OR PAIN Insulin Aspart 1 vial 11/17/16 22:00 11/21/16 06:32 Novolog Vial Sliding Scale - SQ Not Given ACHS [facility] Protocol Labetalol HCl 400 mg 11/17/16 07:00 11/21/16 06:32 Normodyne - PO Not Given AM [facility] Labetalol HCl 200 mg 11/16/16 12:00 11/20/16 11:54 Normodyne - PO Not Given DAILY@1200 [facility] Labetalol HCl 400 mg 11/19/16 10:07 11/20/16 21:36 Normodyne - PO 400 mg HS [facility] Administration Losartan Potassium 100 mg 11/16/16 12:00 11/21/16 10:05 Cozaar - PO 100 mg DAILY [facility] Administration Nifedipine 60 mg 11/19/16 10:00 11/21/16 10:05 Procardia Xl - PO 60 mg BID [facility] Administration Pantoprazole Sodium 40 mg 11/18/16 10:00 11/21/16 10:05 Protonix - PO 40 mg DAILY [facility] Administration Spironolactone 25 mg 11/18/16 11:00 11/21/16 10:05 Aldactone - PO 25 mg DAILY [facility] Administration ASSESSMENT/PLAN: This is a 71 yo F with a PMH of CHF, IDDM, CVA 8 yrs ago, ESRD on HD (MWF), HTN , and chronic anemia, who presented to the ED from her dialysis center on 11/15 with nausea and dizziness, low H/H and guaiac + stool. Upper GI bleed -GI consult appreciated -continues to have melena, h/s stable -EGD Fri suspicpous for ampulalry tumor as likely source of bleed. Biopsy negative -CT abd reveals ampullary prominence with CBD and pancreatic duct dilitation. -CEA 19-9 negative -ERCP with biopsy/stent postponed for tomorrow due to severe HTN today. -Protonix 40 mg daily -NPO after midnight Anemia (symptomatic, severe) -s/p transfusion 4 U PRBC with HD this admission -h/h=9.4/27.7 stable -continue to have melena -asymptomatic -AM cbc HTN -poorly controlled, systolic 200s -missed AM labetalol 400 due to low BP -labetalol 400 stat, recheck BP -contact Renal to plan HD today -on procardia xl 60, labetalol 1000 daily split over 3 doses, losartan 100. -can increase labetalol further if BP not responding IDDM -sliding scale -BGM TID AC CHF -no clinical sign of volume overload -BMP elevated from baseline due to CKD -Daily weights, Strict Is and Os ESRD -On HD M W -s/p HD yesterday -plan HD today -Nephrology FEN: No IVF DVT GI PPX: SCD, no a/c, PPI NPO after midnight Dipso: monitor in med pam Problem List - Problems (1) Anemia Code(s): D64.9 - ANEMIA, UNSPECIFIED Qualifiers: Anemia type: unspecified type Qualified Code(s): D64.9 - Anemia, unspecified (2) Renal insufficiency Code(s): N28.9 - DISORDER OF KIDNEY AND URETER, UNSPECIFIED (3) Anemia, chronic renal failure Code(s): N18.9 - CHRONIC KIDNEY DISEASE, UNSPECIFIED D63.1 - ANEMIA IN CHRONIC KIDNEY DISEASE (4) CKD (chronic kidney disease) Code(s): N18.9 - CHRONIC KIDNEY DISEASE, UNSPECIFIED (5) Diabetes Code(s): E11.9 - TYPE 2 DIABETES MELLITUS WITHOUT COMPLICATIONS (6) ESRD (end stage renal disease) on dialysis Code(s): N18.6 - END STAGE RENAL DISEASE Z99.2 - DEPENDENCE ON RENAL DIALYSIS (7) Hyperlipidemia Code(s): E78.5 - HYPERLIPIDEMIA, UNSPECIFIED (8) Hypertension Code(s): I10 - ESSENTIAL (PRIMARY) HYPERTENSION (9) Congestive heart failure Code(s): I50.9 - HEART FAILURE, UNSPECIFIED Visit type - Emergency Visit Emergency Visit: Yes ED Registration Date: 11/16/16 Care time: The patient presented to the Emergency Department on the above date and was hospitalized for further evaluation of their emergent condition. - New Patient This patient is new to me today: No - Critical Care Critical Care patient: No - Discharge Referral Referred to [facility] Med P.C.: No
--- NOTE | 2016-11-21 11:32 | MSN ---
Progress Note (SOAP) - Subjective History of Present Illness: Pt is a 71 y/o female with a pmh of CHF, DM, CVA 8 years ago, ESRD on HD, HTN, and chronic anemia on day 5 of admission after she presented to the ED from her dialysis center on 11/15 with nausea and dizziness. She was getting her dialysis as part of her MWF regimen and she became nauseous, dizzy, weak, and had one episode of nbnb vomitus. I saw and spoke to the pt this morning and she is cooperative but a little distressed from being hungry. She has been npo since midnight for an impending ERCP this afternoon. She states that she still has had some melena but no other complaints. She denies any current nausea, dizziness, h/a, f/c, shortness of breath, palpitations, or chest pain. She has been spoken to about the possibility of a malignancy and the purpose of today's test. - Current Medications Current Medications: Active Medications Acetaminophen (Tylenol -) 650 mg PO Q4H PRN PRN Reason: FEVER OR PAIN Insulin Aspart (Novolog Vial Sliding Scale -) 1 vial SQ ACHS [facility] PRN Reason: Protocol Last Admin: 11/21/16 06:32 Dose: Not Given Labetalol HCl (Normodyne -) 400 mg PO AM [facility] Last Admin: 11/21/16 06:32 Dose: Not Given Labetalol HCl (Normodyne -) 200 mg PO DAILY@1200 [facility] Last Admin: 11/20/16 11:54 Dose: Not Given Labetalol HCl (Normodyne -) 400 mg PO HS [facility] Last Admin: 11/20/16 21:36 Dose: 400 mg Losartan Potassium (Cozaar -) 100 mg PO DAILY [facility] Last Admin: 11/21/16 10:05 Dose: 100 mg Nifedipine (Procardia Xl -) 60 mg PO BID [facility] Last Admin: 11/21/16 10:05 Dose: 60 mg Pantoprazole Sodium (Protonix -) 40 mg PO DAILY [facility] Last Admin: 11/21/16 10:05 Dose: 40 mg Spironolactone (Aldactone -) 25 mg PO DAILY [facility] Last Admin: 11/21/16 10:05 Dose: 25 mg - Objective Vital Signs: Vital Signs Temperature 98.2 F 11/21/16 10:00 Pulse Rate 70 11/21/16 10:00 Respiratory Rate 14 11/21/16 10:00 Blood Pressure 196/78 11/21/16 10:00 O2 Sat by Pulse Oximetry (%) 100 11/20/16 21:00 Constitutional: Yes: Calm Eyes: Yes: Conjunctiva Clear, EOM Intact, PERRL Cardiovascular: Yes: Regular Rate and Rhythm, S1, S2 Respiratory: Yes: Regular, CTA Bilaterally (no crackles or wheezes) Gastrointestinal: Yes: Normal Bowel Sounds, Soft, Melena Extremities: Yes: WNL (warm, lue avf with palpable thrill) Peripheral Pulses WNL: Yes Edema: No Integumentary: Yes: WNL (warm, dry, stage 1 sacral ulcer) Neurological: Yes: Alert, Oriented, Cran Nerves II-XII Intact Labs Lab Results: CBC, BMP 11/21/16 05:35 11/21/16 05:35 Imaging - Results Other: Pending (ERCP scheduled for afternoon) Assessment/Plan Anemia -H and H on admission was 5.1/15.9 -EGD showed gastritis and ampullary ulceration and thickening -Initial biopsy showed no evidence of carcinoma or adenoma -4 units prbcs transfused during hospital stay -Morning CBC showed Hb of 9.4, hct of 7.7--stable -Aim to maintain the hb >8 -ERCP with Dr. Diehl today at 1500 -f/u with results of ERCP -Protonix IV drip ESRD -HD 11/20- REMOVED 2.5 kgs -F/U BMP today DM -Novolog sliding scale -Has not needed much coverage. 8 in last 24 hrs. 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
--- NOTE | 2016-11-21 12:44 | PN ---
Progress Note (short form) - Note Progress Note: Renal Follow up for ESRD on HD Pt seen and examined at the bedside no acute complaints for ERCP today s/p dialysis yesterday Vital Signs Temperature 98.2 F 11/21/16 10:00 Pulse Rate 70 11/21/16 10:00 Respiratory Rate 14 11/21/16 10:00 Blood Pressure 196/78 11/21/16 10:00 O2 Sat by Pulse Oximetry (%) 100 11/20/16 21:00 Intake & Output 11/18/16 11/19/16 11/20/16 11/21/16 23:59 23:59 23:59 23:59 Intake Total 300 0 Balance 300 0 Weight 139 lb 12.8 oz 138 lb 12.8 oz 141 lb 139 lb 4 oz Gen: NAD, awake and alert CVS: RRR, no M/R Lungs: CTA, no rales or wheeze Abd: soft NT/ND Ext: No edema, clubbing or cyanosis Access: Left ARM AVF + thrill and bruit CBC, BMP 11/21/16 05:35 11/21/16 05:35 Laboratory Tests 11/21/16 05:35 Calcium 8.7 Current Medications Acetaminophen (Tylenol -) 650 mg PO Q4H PRN PRN Reason: FEVER OR PAIN Indomethacin (Indocin Suppository -) 50 mg CO ONCE ONE Stop: 11/21/16 12:46 Insulin Aspart (Novolog Vial Sliding Scale -) 1 vial SQ ACH[facility] PRN Reason: Protocol Last Admin: 11/21/16 12:15 Dose: Not Given Labetalol HCl (Normodyne -) 400 mg PO AM [facility] Last Admin: 11/21/16 06:32 Dose: Not Given Labetalol HCl (Normodyne -) 200 mg PO DAILY@1200 [facility] Last Admin: 11/21/16 12:18 Dose: 200 mg Labetalol HCl (Normodyne -) 400 mg PO HS [facility] Last Admin: 11/20/16 21:36 Dose: 400 mg Losartan Potassium (Cozaar -) 100 mg PO DAILY [facility] Last Admin: 11/21/16 10:05 Dose: 100 mg Nifedipine (Procardia Xl -) 60 mg PO BID [facility] Last Admin: 11/21/16 10:05 Dose: 60 mg Pantoprazole Sodium (Protonix -) 40 mg PO DAILY [facility] Last Admin: 11/21/16 10:05 Dose: 40 mg Spironolactone (Aldactone -) 25 mg PO DAILY [facility] Last Admin: 11/21/16 10:05 Dose: 25 mg a/P 71 year old woman with PMhx of ESRD on HD, Diabetic Nephropathy, Hypertension, CKD Related Anemia, DM who presented with weakness, dizziness and nausea and found to have acute on chronic anemia with Hgb of 5.9. #Acute on Chronic Anemia with positive stool occult blood/GI bleed Hgb stable for ERCP To eval possible maligancy at the ampula #ESRD on HD s/p dialysis yesterday next dialysis tomorrow #Hypertension BP improved on Aldactone, Procardia BID, Losartan, Labetalol Adenxal cyst seen on CT ? Adlosterone secreting tumor Check Renin/Adlosterone - pending Alf Mcmahan DO
[2016-11-21] MEDS ORDERED: INDOMETHACIN 50 MG RECTAL SUPPOSITORY PR ONE (12:45)
--- NOTE | 2016-11-21 14:42 | PN ---
Progress Note (short form) - Note Progress Note: GI Note: ERCP canceled due to elevated BP. Will reschedule for AM.
[2016-11-21] MEDS ORDERED: LABETALOL HCL 200 MG TABLET (FP) PO ONE ×2 (15:15→15:24)
[2016-11-21] MEDS ORDERED: cloNIDine HCL 0.1 MG TABLET PO ONE (15:15)
[2016-11-21] MEDS ORDERED: cloNIDine HCL 0.1 MG TABLET PO PRN (17:58)
[2016-11-21] MEDS ORDERED: INSULIN (NOVOLOG) ASPART 100 UNITS/ML 10ML VIAL ONE (21:12)
[2016-11-22] MEDS: LABETALOL HCL 200 MG TABLET (FP) PO SCH ×3 (06:34→21:24)
[2016-11-22] MEDS: INSULIN SLIDING SCALE (NOVOLOG) 1 VIAL SQ SCH ×4 (06:34→21:30)
[2016-11-22 07:19] LABS: INR 1.14 (0.82-1.09); PROTHROMBIN TIME (PATIENT) 12.6 SEC (9.98-11.88)
[2016-11-22 07:32] LABS: BASOPHIL 1.2 % (0-2.0); EOSINOPHIL 3.7 % (0-4.5); MCH 30.1 pg (25.7-33.7); MCHC 33.7 g/dl (32.0-36.0); MEAN CELL VOLUME 89.5 fl (80-96); MEAN PLT VOLUME 9.6 fl (7.5-11.1); NEUTROPHILS 70.7 % (42.8-82.8); PLATELET COUNT 167 K/MM3 (134-434); RDW 15.1 % (11.6-15.6); WHITE BLOOD COUNT 7.4 K/mm3 (4.0-10.0)
[2016-11-22 07:59] LABS: ALBUMIN 3.4 g/dl (3.4-5.0); CALCIUM 8.7 mg/dL (8.5-10.1)
[2016-11-22 08:02] LABS: BILIRUBIN,DIRECT 0.1 mg/dL (0.0-0.2); BILIRUBIN,TOTAL 0.5 mg/dL (0.2-1.0); CREATININE 3.9 mg/dL (0.55-1.02); TOT PROT 6.4 g/dl (6.4-8.2)
[2016-11-22] MEDS ORDERED: INDOMETHACIN 50 MG RECTAL SUPPOSITORY PR ONE (09:00)
[2016-11-22] MEDS ORDERED: EPOETIN ALFA 2,000 UNITS/1 ML VIAL IVPUSH ONE (09:00)
[2016-11-22] MEDS: SPIRONOLACTONE 25 MG TABLET (FP) PO SCH (09:39)
[2016-11-22] MEDS: PANTOPRAZOLE 40 MG TABLET (FP) PO SCH (09:39)
[2016-11-22] MEDS: LOSARTAN POTASSIUM 50 MG TABLET (FP) PO SCH (09:39)
[2016-11-22] MEDS: NIFEdipine E.R 60 MG TABLET (UD) PO SCH ×2 (09:39→21:23)
[2016-11-22] MEDS ORDERED: ROCURONIUM BROMIDE 50 MG/5 ML VIAL ONE (10:36)
[2016-11-22] MEDS ORDERED: LABETALOL HCL 5 MG/1 ML (100MG/20 ML VIAL) ONE (10:36)
--- NOTE | 2016-11-22 10:47 | PN ---
<Dani Lebron - Last Filed: 11/22/16 11:14> Physical Exam: ATTENDING PHYSICIAN STATEMENT I saw and evaluated the patient. I reviewed the resident's note and discussed the case with the resident. I agree with the resident's findings and plan as documented. 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 (bx from EGD negative); for ERCP for further bx and to open obstruction -CEA and 19-9 negative HTN -was elevated yesterday to 200's possibly due to anxiety for ERCP; responded to clonidine -concern possible Conn Syndrome be preceding attending -renin/angiotensin assay sent and can be followed as an outpatient -cont labetalol TID, nifedipine BID, losartan, and addition of spirinolactone DM -cont sliding scale insulin ESRD on chronic HD -HD as per renal attending DVT proph - no a/c in setting of bleed, SCD <Sinai Segura - Last Filed: 11/22/16 11:40> Physical Exam: SUBJECTIVE: Patient seen and examined Patient resting in bed comfortably, NAD. No acute events overnight. afebrile and hemodynamically stable. BP well controlled since one clonidine dose and s/p HD yesterday. ERCP planned for this AM. Repeat H/H stable. No events on tele. She still reports some melena. She denies dizzines, h/a, chest pain, sob, f/c, abd pain, n/v. OBJECTIVE: Vital Signs Period Temp Pulse Resp BP Sys/Parker Pulse Ox Last 24 Hr 98.2 F-100 F 57-98 14-20 135-257/53-99 96 GENERAL: The patient is awake, alert, and fully oriented, in no acute distress. HEAD: Normal with no signs of trauma. EYES: PERRL, extraocular movements intact, sclera anicteric, conjunctiva clear. ENT: moist mucous membranes. NECK: supple. LUNGS: Breath sounds equal, clear to auscultation bilaterally, no wheezes HEART: Regular rate and rhythm, S1, S2 ABDOMEN: Soft, nontender, nondistended, normoactive bowel sounds EXTREMITIES: 2+ pulses, warm, well-perfused, no edema. NEUROLOGICAL: Cranial nerves II through XII grossly intact. Normal speech PSYCH: Normal mood, normal affect. SKIN: Warm, dry. sacral stage 1 ulcer Laboratory Results - last 24 hr 11/21/16 11/21/16 11/21/16 12:17 15:49 21:46 WBC RBC Hgb Hct MCV MCHC RDW Plt Count MPV Neutrophils % Lymphocytes % Monocytes % Eosinophils % Basophils % INR Sodium Potassium Chloride Carbon Dioxide Anion Gap BUN Creatinine POC Glucometer 200 237 236 Random Glucose Calcium Total Bilirubin Direct Bilirubin AST ALT Alkaline Phosphatase Total Protein Albumin Total Amylase Lipase 11/22/16 11/22/16 11/22/16 05:35 05:35 05:35 WBC 7.4 RBC 3.14 L Hgb 9.5 L Hct 28.1 L MCV 89.5 MCHC 33.7 RDW 15.1 Plt Count 167 MPV 9.6 Neutrophils % 70.7 Lymphocytes % 15.5 Monocytes % 8.9 Eosinophils % 3.7 Basophils % 1.2 INR 1.14 Sodium 138 Potassium 3.6 Chloride 98 Carbon Dioxide 30 Anion Gap 10 BUN 21 H Creatinine 3.9 H POC Glucometer Random Glucose 194 H Calcium 8.7 Total Bilirubin 0.5 D Direct Bilirubin 0.1 D AST 14 L ALT 14 Alkaline Phosphatase 78 Total Protein 6.4 Albumin 3.4 Total Amylase 40 Lipase 95 11/22/16 05:55 WBC RBC Hgb Hct MCV MCHC RDW Plt Count MPV Neutrophils % Lymphocytes % Monocytes % Eosinophils % Basophils % INR Sodium Potassium Chloride Carbon Dioxide Anion Gap BUN Creatinine POC Glucometer 191 Random Glucose Calcium Total Bilirubin Direct Bilirubin AST ALT Alkaline Phosphatase Total Protein Albumin Total Amylase Lipase Active Medications Generic Name Dose Route Start Last Admin Trade Name Freq PRN Reason Stop Dose Admin Acetaminophen 650 mg 11/19/16 10:08 Tylenol - PO Q4H PRN FEVER OR PAIN Clonidine 0.1 mg 11/21/16 17:58 11/21/16 18:17 Catapres - PO 0.1 mg Q8H PRN Administration HYPERTENSION Epoetin Arturo 20,000 units 11/22/16 09:00 Epogen - IVPUSH 11/22/16 09:01 ONCE ONE Insulin Aspart 1 vial 11/17/16 22:00 11/22/16 06:34 Novolog Vial Sliding Scale - SQ Not Given ACHS KARINA Protocol Labetalol HCl 400 mg 11/17/16 07:00 11/22/16 06:34 Normodyne - PO 400 mg AM KARINA Administration Labetalol HCl 200 mg 11/16/16 12:00 11/21/16 12:18 Normodyne - PO 200 mg DAILY@1200 KARINA Administration Labetalol HCl 400 mg 11/19/16 10:07 11/21/16 21:49 Normodyne - PO 400 mg HS KARINA Administration Losartan Potassium 100 mg 11/16/16 12:00 11/22/16 09:39 Cozaar - PO 100 mg DAILY KARINA Administration Nifedipine 60 mg 11/19/16 10:00 11/22/16 09:39 Procardia Xl - PO 60 mg BID KARINA Administration Pantoprazole Sodium 40 mg 11/18/16 10:00 11/22/16 09:39 Protonix - PO 40 mg DAILY KARINA Administration Spironolactone 25 mg 11/18/16 11:00 11/22/16 09:39 Aldactone - PO 25 mg DAILY KARINA Administration ASSESSMENT/PLAN: This is a 71 yo F with a PMH of CHF, IDDM, CVA 8 yrs ago, ESRD on HD (MWF), HTN , and chronic anemia, who presented to the ED from her dialysis center on 11/15 with nausea and dizziness, low H/H and guaiac + stool. Upper GI bleed -GI consult appreciated -continues to have melena, h/h stable -EGD Fri suspicpous for ampulalry tumor as likely source of bleed. Biopsy negative -CT abd reveals ampullary prominence with CBD and pancreatic duct dilitation. -CEA 19-9 negative -ERCP with biopsy/stent today. -Protonix 40 mg daily -NPO after midnight Anemia (symptomatic, severe) -s/p transfusion 4 U PRBC with HD this admission -h/h=9.4/27.7 stable -continue to have melena -asymptomatic now -AM cbc HTN -controlled since last night -on procardia xl 60, labetalol 1000 daily split over 3 doses, losartan 100. -added conidine 0.1 mg q8h prn for sytolic BP>170mmHg -can increase labetalol further if BP not responding IDDM -sliding scale -BGM TID AC CHF -no clinical sign of volume overload -BMP elevated from baseline due to CKD -Daily weights, Strict Is and Os ESRD -On HD -s/p HD yesterday -Nephrology FEN: No IVF DVT GI PPX: SCD, no a/c, PPI NPO after midnight Dipso: monitor in med pam Problem List - Problems (1) Anemia Code(s): D64.9 - ANEMIA, UNSPECIFIED Qualifiers: Anemia type: unspecified type Qualified Code(s): D64.9 - Anemia, unspecified (2) Renal insufficiency Code(s): N28.9 - DISORDER OF KIDNEY AND URETER, UNSPECIFIED (3) Anemia, chronic renal failure Code(s): N18.9 - CHRONIC KIDNEY DISEASE, UNSPECIFIED D63.1 - ANEMIA IN CHRONIC KIDNEY DISEASE (4) CKD (chronic kidney disease) Code(s): N18.9 - CHRONIC KIDNEY DISEASE, UNSPECIFIED (5) Diabetes Code(s): E11.9 - TYPE 2 DIABETES MELLITUS WITHOUT COMPLICATIONS (6) ESRD (end stage renal disease) on dialysis Code(s): N18.6 - END STAGE RENAL DISEASE Z99.2 - DEPENDENCE ON RENAL DIALYSIS (7) Hyperlipidemia Code(s): E78.5 - HYPERLIPIDEMIA, UNSPECIFIED (8) Hypertension Code(s): I10 - ESSENTIAL (PRIMARY) HYPERTENSION (9) Congestive heart failure Code(s): I50.9 - HEART FAILURE, UNSPECIFIED Visit type - Emergency Visit Emergency Visit: Yes ED Registration Date: 11/16/16 Care time: The patient presented to the Emergency Department on the above date and was hospitalized for further evaluation of their emergent condition. - New Patient This patient is new to me today: No - Critical Care Critical Care patient: No - Discharge Referral Referred to [facility] Med P.C.: No
[2016-11-22] MEDS ORDERED: IOHEXOL 300 MG/ML INFUS..BTL IV ONE (11:17)
--- NOTE | 2016-11-22 12:20 | PN ---
Progress Note (short form) - Note Progress Note: Post ERCP procedure note: Please refer to procedure note. 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 I was able to cannulate only the pancreatic duct. a brush cytology was taken and a pancreatic stent was inserted to try to prevent pancreatitis. The common bile duct could not be cannulated. . Multiple biopsies were taken from the ampullary mass. I will attempt to tranfer to a tertiary care center for more definitive management.
--- NOTE | 2016-11-22 13:30 | PN ---
Progress Note (short form) - Note Progress Note: I have called Hali's son Jim and discussed the case with him. 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 He will be coming tonight to talk to his mother.
[2016-11-22] MEDS ORDERED: LEVOFLOXACIN 500 MG IVPB 100 ML IVPB ONE (14:00)
--- NOTE | 2016-11-22 17:15 | PN ---
Progress Note (short form) - Note Progress Note: Renal Follow up for ESRD on HD Pt seen and examined at the bedside s/p ERCP today findings as per GI Note no acute complaints denies sob, chest pain s/p dialysis yesterday Vital Signs Temperature 98.4 F 11/22/16 12:05 Pulse Rate 81 11/22/16 13:05 Respiratory Rate 20 11/22/16 13:05 Blood Pressure 144/68 11/22/16 13:05 O2 Sat by Pulse Oximetry (%) 100 11/22/16 13:05 Intake & Output 11/19/16 11/20/16 11/21/16 11/22/16 23:59 23:59 23:59 23:59 Intake Total 300 450 250 Balance 300 450 250 Weight 138 lb 12.8 oz 141 lb 139 lb 4 oz 133 lb 9.6 oz Gen: NAD, awake and alert CVS: RRR, no M/R Lungs: CTA, no rales or wheeze Abd: soft NT/ND Ext: No edema, clubbing or cyanosis Access: Left ARM AVF + thrill and bruit CBC, BMP 11/22/16 05:35 11/22/16 05:35 Laboratory Tests 11/22/16 05:35 Calcium 8.7 Current Medications Acetaminophen (Tylenol -) 650 mg PO Q4H PRN PRN Reason: FEVER OR PAIN Clonidine (Catapres -) 0.1 mg PO Q8H PRN PRN Reason: HYPERTENSION Last Admin: 11/21/16 18:17 Dose: 0.1 mg Epoetin Arturo (Epogen -) 20,000 units IVPUSH ONCE ONE Stop: 11/22/16 09:01 Metronidazole (Flagyl 250mg Premixed Ivpb -) 50 mls @ 50 mls/hr IVPB Q8H-IV KARINA Insulin Aspart (Novolog Vial Sliding Scale -) 1 vial SQ ACHS KARINA PRN Reason: Protocol Last Admin: 11/22/16 13:50 Dose: 4 units Labetalol HCl (Normodyne -) 400 mg PO AM KARINA Last Admin: 11/22/16 06:34 Dose: 400 mg Labetalol HCl (Normodyne -) 200 mg PO DAILY@1200 KARINA Last Admin: 11/22/16 14:47 Dose: 200 mg Labetalol HCl (Normodyne -) 400 mg PO HS KARINA Last Admin: 11/21/16 21:49 Dose: 400 mg Losartan Potassium (Cozaar -) 100 mg PO DAILY [facility] Last Admin: 11/22/16 09:39 Dose: 100 mg Nifedipine (Procardia Xl -) 60 mg PO BID [facility] Last Admin: 11/22/16 09:39 Dose: 60 mg Pantoprazole Sodium (Protonix -) 40 mg PO DAILY [facility] Last Admin: 11/22/16 09:39 Dose: 40 mg Spironolactone (Aldactone -) 25 mg PO DAILY [facility] Last Admin: 11/22/16 09:39 Dose: 25 mg a/P 71 year old woman with PMhx of ESRD on HD, Diabetic Nephropathy, Hypertension, CKD Related Anemia, DM who presented with weakness, dizziness and nausea and found to have acute on chronic anemia with Hgb of 5.9. 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
[2016-11-22] MEDS ORDERED: METRONIDAZOLE PREMIXED IVPB 50 ML IVPB SCH (18:00)
--- NOTE | 2016-11-22 21:19 | HOSP ---
Physical Examination Vital Signs: Vital Signs Temperature 98.1 F 11/22/16 17:00 Pulse Rate 61 11/22/16 17:00 Respiratory Rate 20 11/22/16 20:07 Blood Pressure 138/57 11/22/16 17:00 O2 Sat by Pulse Oximetry (%) 100 11/22/16 20:07 Labs: CBC, BMP 11/22/16 05:35 11/22/16 05:35 Hospitalist Encounter Assessment: Was paged by the nurse to complete the transfer process to [facility]. Apparently, patient was recently diagnosed with Ampullary mass. Patient had ERCP done today with multiple biopsies from the ampullary mass. Spoke with Dr. Ramírez about the transfer to [facility]. Spoke with Patients son Mr. Jim Pereira ), he said he was aware of the patients being transferred and gave verbal consent. Spoke with the patient (used goodwill ambassador) about the transfer, she agreed. The accepting physician at [facility] is Dr. Phipps ([phone]) On questioning, patient complained of mild epigastric pain but no nausea or vomiting. Also states she has discomfort in her throat. Rest of the ROS was negative. Physical exam: General: Patient lying comfortably in bed, awake, alert, oriented x 3, in no acute distress HEENT-EOM intact, icterus+, pallor+ Chest: B/L lungs clear, no added sounds CVS-s1, s2, no murmur Abdominal exam: Soft, minimal tenderness over the epigastric area, non distended , no organomegaly, BS+ Neuro: CN II-12 intact Plan: All papers for the transfer signed and is in the chart. Illness, Investigation, plan of care, transport risks has been discussed with the patient. She verbalized understanding. Case discussed with Dr. Smalls. Visit type - Emergency Visit Emergency Visit: Yes ED Registration Date: 11/16/16 Care time: The patient presented to the Emergency Department on the above date and was hospitalized for further evaluation of their emergent condition. - New Patient This patient is new to me today: No - Critical Care Critical Care patient: No
[2016-11-22 21:32] VITALS: BP 172/74; PULSE 65; TEMP 98.3
[2016-11-23 00:07] LABS: RENIN ACTIVITY(PRA) < 0.15 ng/mL/hr (.)
--- NOTE | 2016-11-23 17:04 | DS ---
Physical Exam: SUBJECTIVE: Patient seen and examined Patient resting in bed comfortably, NAD. No acute events overnight. afebrile and hemodynamically stable. BP well controlled since one clonidine dose and s/p HD yesterday. S/p ERCP She denies dizzines, h/a, chest pain, sob, f/c, abd pain , n/v. OBJECTIVE: Vital Signs Period Temp Pulse Resp BP Sys/Parker Pulse Ox Last 24 Hr 98.3 F 65 18-20 172/74 100 PHYSICAL EXAM GENERAL: The patient is awake, alert, and fully oriented, in no acute distress. HEAD: Normal with no signs of trauma. EYES: PERRL, extraocular movements intact, sclera anicteric, conjunctiva clear. ENT: moist mucous membranes. NECK: supple. LUNGS: Breath sounds equal, clear to auscultation bilaterally, no wheezes HEART: Regular rate and rhythm, S1, S2 ABDOMEN: Soft, nontender, nondistended, normoactive bowel sounds EXTREMITIES: 2+ pulses, warm, well-perfused, no edema. NEUROLOGICAL: Cranial nerves II through XII grossly intact. Normal speech PSYCH: Normal mood, normal affect. SKIN: Warm, dry. sacral stage 1 ulcer LABS Laboratory Results - last 24 hr 11/20/16 11/22/16 11/22/16 10:40 17:20 21:27 POC Glucometer 199 236 Renin Activity < 0.15 HOSPITAL COURSE: Date of Admission:11/16/16 This is a 71 yo F with PMH of CHF, IDDM, ESRD on HD, HTN, HLD and chronic anemia with prior transfusion, who presents due to dizziness and nausea. She was just discharged from here on sunday, was admitted for anemia and hyperglycemia. during last admission h/h was 7/21.7 and improved to 9.6/29.3 after 2 Units. She also had a UTI treated with keflex. She was guaiac positive but was not evaluated by GI. Her symptoms started on sunday. She reports associated h/a, nausea and one episode of nbnb vomiting yesterday. she denies chest pain, palpitations, sob, cough, abd pain or hematochezia. She reports having very dark stools daily. She had HD on sun and Sun. On admission she had low H/H and guaiac + stool. She received 4 U p RBC total with HD. She was asymptomatic. 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 a brush cytology was taken and a pancreatic stent was inserted to try to prevent pancreatitis. The common bile duct could not be cannulated. Multiple biopsies were taken from the ampullary mass. Her family was informed. During her stay she was also hypertensive 230'as systolic. BP was difficult to manage but was finally controlled with procardia xl 60, labetalol 1000 daily split over 3 doses, losartan 100 and conidine 0.1 mg q8h prn. She was tranferred to a tertiary care center for more definitive management. Date of Discharge: 11/23/16 Minutes to complete discharge: 30 (na) Discharge Summary Reason For Visit: ANEMIA RECTAL BLEEDING Condition: Stable - Instructions Referrals: Sobeida Chavez MD [Primary Care Provider] - Disposition: TRANSFER ACUTE CARE/OTHER HOSP - Home Medications Comprehensive Discharge Medication List: Ambulatory Orders Calcium Acetate [Phoslo -] 667 mg PO TIDCM 04/17/16 Furosemide [Lasix -] 120 mg PO DAILY 04/17/16 Labetalol HCl [Normodyne -] 400 mg PO AM 04/17/16 Losartan Potassium [Cozaar] 100 mg PO DAILY 04/17/16 Nifedipine ER [Procardia XL -] 60 mg PO BID 04/17/16 Pravastatin Sodium [Pravachol -] 20 mg PO HS 04/17/16 Labetalol HCl [Normodyne -] 200 mg PO 1200 11/11/16 Labetalol HCl [Normodyne -] 200 mg PO HS 11/11/16 Cephalexin [Keflex] 500 mg PO BID #10 capsule 11/12/16 Glipizide 5 mg PO DAILY #30 tablet 11/12/16 Pantoprazole Sodium [Protonix] 40 mg PO DAILY #30 tablet. 11/12/16 Problem List - Problems (1) Anemia Code(s): D64.9 - ANEMIA, UNSPECIFIED Qualifiers: Anemia type: unspecified type Qualified Code(s): D64.9 - Anemia, unspecified (2) Renal insufficiency Code(s): N28.9 - DISORDER OF KIDNEY AND URETER, UNSPECIFIED (3) Anemia, chronic renal failure Code(s): N18.9 - CHRONIC KIDNEY DISEASE, UNSPECIFIED D63.1 - ANEMIA IN CHRONIC KIDNEY DISEASE (4) CKD (chronic kidney disease) Code(s): N18.9 - CHRONIC KIDNEY DISEASE, UNSPECIFIED (5) Diabetes Code(s): E11.9 - TYPE 2 DIABETES MELLITUS WITHOUT COMPLICATIONS (6) ESRD (end stage renal disease) on dialysis Code(s): N18.6 - END STAGE RENAL DISEASE Z99.2 - DEPENDENCE ON RENAL DIALYSIS (7) Hyperlipidemia Code(s): E78.5 - HYPERLIPIDEMIA, UNSPECIFIED (8) Hypertension Code(s): I10 - ESSENTIAL (PRIMARY) HYPERTENSION (9) Congestive heart failure Code(s): I50.9 - HEART FAILURE, UNSPECIFIED This patient is new to me today: Yes Date on this admission: 11/23/16 Emergency Visit: Yes ED Registration Date: 11/16/16 Care time: The patient presented to the Emergency Department on the above date and was hospitalized for further evaluation of their emergent condition. Critical Care patient: No - Discharge Referral Referred to [facility] Med P.C.: No
--- NOTE | 2016-11-24 09:38 | PATH ---
Surgical Pathology Report Patient Name: AIDA BONILLA [facility]. Rec. #: [id number] /Age/Gender: 1945 (Age: 71) / F Account: [id number] Location: 4 W TELEMETRY U Taken: 11/22/2016 Received: 11/22/2016 Reported: 11/24/2016 Physicians: Nima Diehl M.D. Specimen(s) Received BX AMPULLA OF VATER Clinical History Duodenal mass, abnormal PET scan, dilated bile duct, rule out ampullary mass cancer Ulcerated enlarged ampulla of Vater, rule out adenoma or carcinoma Final Diagnosis AMPULLA OF VATER, BIOPSY: FRAGMENTS OF ULCERATED DUODENAL MUCOSA WITH ASSOCIATED MARKED ACTIVE AND CHRONIC INFLAMMATION, DANIEL'S GLANDS HYPERPLASIA, FOCAL OXYNTIC METAPLASIA AND INFLAMED GRANULATION TISSUE. NO ADENOMA/DYSPLASIA OR CARCINOMA IDENTIFIED IN THE EXAMINED MATERIAL (SEE COMMENT). Comment: The biopsy shows ulcerated duodenal mucosa with associated inflammation and granulation tissue. Immunohistochemical stain forAe1/Ae3 keratin highlights duodenal epithelial lining and residual epithelial structures in the granulation tissue. While no adenoma or carcinoma is seen in this material, an underlying neoplastic process cannot be excluded. Clinical, endoscopic correlations and follow up are suggested. The case was discussed with Dr. Diehl on 11/24/16. Electronically Signed Farhan Ware M.D. Gross Description Received in formalin, labeled "biopsy ampulla of Vater" are 3 forrester, irregular portions of soft tissue averaging 0.3 cm in greatest dimension. The specimens are submitted in toto in one cassette. 11/22/2016 saudi11/22/2016
--- NOTE | 2016-11-24 12:32 | PATH ---
Cytology Non-Gynecological Report Patient Name: AIDA BONILLA Med. Rec. #: [id number] /Age/Gender: 1945 (Age: 71) / F Account: [id number] Location: 4 W TELEMETRY U Taken: 11/22/2016 Received: 11/22/2016 Reported: 11/24/2016 Physicians: Nima Diehl M.D. Specimen(s) Received BILE DUCT BRUSH Clinical History Ampullary mass Final Diagnosis ----- Distal Common bile duct, brushing: Scattered clusters OF AND ISOLATED DEGENERATED atypical epithelial cells PRESENT In Background OF inflammatory cells and mucous (SEE COMMENT). Comment: The smears show scattered clusters and rare isolated atypical epithelial cells with background inflammation and mucus with degeneration. Atypical cells may represent markedly reactive epithelium; however, a well differentiated neoplastic process cannot be excluded. Endoscopic correlations and follow up are suggested. Also refer to [id number] for the biopsy results. ___ Electronically Signed Farhan Ware M.D. Gross Description ----- Received in one smear slide and a brush in 95% alcohol. Two Pap stained slides are made. ___
== END 2016-11-22 23:04 | disposition short-term general hospital (02) | DRG 253 ==
LOC: JER 18:42 → JERBED 11-16 02:33 → J4W 11-16 06:16
PROVIDERS: ADMIT Internal Medicine; ATTEND Internal Medicine
PROC: 5A1D60Z (ICD-10-PCS; 2016-11-16)
PROC: 30233N1 Transfusion of Nonautologous Red Blood Cells into Peripheral Vein, Percutaneous Approach (ICD-10-PCS; 2016-11-16)
PROC: 0DB68ZX Excision of Stomach, Via Natural or Artificial Opening Endoscopic, Diagnostic (ICD-10-PCS; 2016-11-17)
PROC: 0DB98ZX Excision of Duodenum, Via Natural or Artificial Opening Endoscopic, Diagnostic (ICD-10-PCS; principal; 2016-11-17 11:00)
PROC: 0F7D8DZ Dilation of Pancreatic Duct with Intraluminal Device, Via Natural or Artificial Opening Endoscopic (ICD-10-PCS; 2016-11-22)
PROC: 0FBC8ZX Excision of Ampulla of Vater, Via Natural or Artificial Opening Endoscopic, Diagnostic (ICD-10-PCS; 2016-11-22)
DX: K92.2 Gastrointestinal hemorrhage, unspecified (principal); D49.0 Neoplasm of unspecified behavior of digestive system; E78.5 Hyperlipidemia, unspecified; I13.2 Hypertensive heart and chronic kidney disease with heart failure and with stage 5 chronic kidney disease, or end stage renal disease; N18.6 End stage renal disease; E11.21 Type 2 diabetes mellitus with diabetic nephropathy; I50.9 Heart failure, unspecified; Z99.2 Dependence on renal dialysis; D63.1 Anemia in chronic kidney disease; K26.9 Duodenal ulcer, unspecified as acute or chronic, without hemorrhage or perforation; Z79.4 Long term (current) use of insulin; K44.9 Diaphragmatic hernia without obstruction or gangrene; E87.6 Hypokalemia
CPT/HCPCS: 36415; 36430; 71010-TC; 74177-TC; 76000-TC; 80048; 80053; 80076; 82088; 82150; 82272; 82378; 82565; 82728; 82977; 83540; 83550; 83690; 83735; 83880; 84100; 84244; 84520; 85025; 85027; 85044; 85610; 86140; 86301; 86850; 86900; 86901; 86922; 88104; 88305-TC; 93005; 93010; 99282-25; J0885; P9038; P9058

== ENCOUNTER 2016-11-29 19:54 | Emergency (ER) | payer OTHER ==
[2016-11-29 19:59] VITALS: TEMP 98.7; BMI 36.0
[2016-11-29] MEDS ORDERED: cloNIDine HCL 0.1 MG TABLET PO ONE (20:35)
--- NOTE | 2016-11-29 20:41 | PDOC ---
History of Present Illness - General History Source: Patient, Old Records Exam Limitations: No Limitations - History of Present Illness Initial Comments: 11/29/16 21:22 The patient is a 71 year old female, with a significant past medical history of HTN, CHF, HLD, diabetes and ESRD on dialysis (MWF), who presents to the emergency department after a hypertensive episode earlier today at 4:45pm after her dialysis. On presentation her blood pressure is The patient was admitted for Rectal Hemorrhage on 11/15/16, for which she was transferred over to [facility] on 11/22/2016. At [facility] she got an endoscopy and a biopsy that was benign. She states that ever since her endoscopy she has been having some mild throat discomfort and mild abdominal discomfort. The patient denies chest pain, shortness of breath, headache and dizziness. Denies fever, chills, nausea, vomit, diarrhea and constipation. Denies dysuria, frequency, urgency and hematuria. Allergies: None Past surgical history: Left upper extremity fistula, cardiac surgery Social history: No alcohol, tobacco or drug use reported PMD - Dr. Molina Vascular surgeon: Dr. Enmanuel Finney <Jad Ragsdale - Last Filed: 11/29/16 21:22> - General History Source: Patient, Old Records Exam Limitations: No Limitations <Merrill Joshi - Last Filed: 12/01/16 11:51> - General Chief Complaint: Blood Pressure Problem Stated Complaint: HYPERTENSION Time Seen by Provider: 11/29/16 20:16 Past History <Jad Ragsdale - Last Filed: 11/29/16 21:22> - Past Medical History CHF: Yes Diabetes: Yes Dialysis: Yes Disorders: Yes (esrd, dialysis) HTN: Yes Hypercholesterolemia: Yes - Surgical History Cardiac Surgery: Yes - Immunization History Immunization Up to Date: Yes - Psycho/Social/Smoking Cessation Hx Anxiety: No Suicidal Ideation: No Smoking History: Never smoked Have you smoked in the past 12 months: No Number of Cigarettes Smoked Daily: 0 Hx Alcohol Use: No Drug/Substance Use Hx: No Substance Use Type: None Hx Substance Use Treatment: No <Merrill Joshi - Last Filed: 12/01/16 11:51> - Past Medical History Allergies/Adverse Reactions: Allergies Allergy/AdvReac Type Severity Reaction Status Date / Time No Known Allergies Allergy Verified 11/30/16 00:33 Home Medications: Ambulatory Orders Calcium Acetate [Phoslo -] 667 mg PO TIDCM 04/17/16 Furosemide [Lasix -] 120 mg PO DAILY 04/17/16 Labetalol HCl [Normodyne -] 400 mg PO AM 04/17/16 Losartan Potassium [Cozaar] 100 mg PO DAILY 04/17/16 Nifedipine ER [Procardia XL -] 60 mg PO BID 04/17/16 Pravastatin Sodium [Pravachol -] 20 mg PO HS 04/17/16 Labetalol HCl [Normodyne -] 200 mg PO 1200 11/11/16 Labetalol HCl [Normodyne -] 200 mg PO HS 11/11/16 Cephalexin [Keflex] 500 mg PO BID #10 capsule 11/12/16 Glipizide 5 mg PO DAILY #30 tablet 11/12/16 Pantoprazole Sodium [Protonix] 40 mg PO DAILY #30 tablet. 11/12/16 Review of Systems - Review of Systems Able to Perform ROS?: Yes Comments:: 11/29/16 21:22 GENERAL/CONSTITUTIONAL: No fever or chills. No weakness. HEAD, EYES, EARS, NOSE AND THROAT: No change in vision. No ear pain or discharge. No sore throat. CARDIOVASCULAR: No chest pain or shortness of breath RESPIRATORY: No cough, wheezing, or hemoptysis. GASTROINTESTINAL: +Abdominal discomfort. No nausea, vomiting, diarrhea or constipation. GENITOURINARY: No dysuria, frequency, or change in urination. MUSCULOSKELETAL: No joint or muscle swelling or pain. No neck or back pain. SKIN: No rash NEUROLOGIC: No headache, vertigo, loss of consciousness, or change in strength/ sensation. ENDOCRINE: No increased thirst. No abnormal weight change HEMATOLOGIC/LYMPHATIC: No anemia, easy bleeding, or history of blood clots. ALLERGIC/IMMUNOLOGIC: No hives or skin allergy. <Jad Ragsdale - Last Filed: 11/29/16 21:22> *Physical Exam - Vital Signs Last Vital Signs Temp Pulse Resp BP Pulse Ox 98.7 F 56 L 20 232/73 98 11/29/16 19:55 11/29/16 19:55 11/29/16 19:55 11/29/16 19:55 11/29/16 19:55 - Physical Exam Comments: 11/29/16 21:23 GENERAL: Awake, alert, and fully oriented, in no acute distress HEAD: No signs of trauma, normocephalic, atraumatic EYES: PERRLA, EOMI, sclera anicteric, conjunctiva clear ENT: Auricles normal inspection, hearing grossly normal, nares patent, oropharynx clear without exudates. Moist mucosa NECK: Normal ROM, supple, no lymphadenopathy, JVD, or masses LUNGS: No distress, speaks full sentences, clear to auscultation bilaterally HEART: Regular rate and rhythm, normal S1 and S2, no murmurs, rubs or gallops, peripheral pulses normal and equal bilaterally. ABDOMEN: +Chronic epigastric tenderness. Soft, normoactive bowel sounds. No guarding, no rebound. No masses EXTREMITIES: Normal inspection, Normal range of motion, no edema. No clubbing or cyanosis. NEUROLOGICAL: Cranial nerves II through XII grossly intact. Normal speech, normal gait, no focal sensorimotor deficits SKIN: Warm, Dry, normal turgor, no rashes or lesions noted. <Jad Ragsdale - Last Filed: 11/29/16 21:22> - Vital Signs Last Vital Signs Temp Pulse Resp BP Pulse Ox 98.7 F 56 L 20 232/73 98 11/29/16 19:55 11/29/16 19:55 11/29/16 19:55 11/29/16 19:55 11/29/16 19:55 <Merrill Joshi - Last Filed: 12/01/16 11:51> Heart Score/ECG Review #1 ECG reviewed & interpreted by me at: 21:05 11/29/16 22:04 NSR 60 with 1st degree AV block, LAFB, no std/david, QTC 458 msec <Merrill Joshi - Last Filed: 12/01/16 11:51> ED Treatment Course - Medications Given in the ED: ED Medications Discontinued Medications Generic Name Dose Route Start Last Admin Trade Name Freq PRN Reason Stop Dose Admin Clonidine 0.1 mg 11/29/16 20:35 11/29/16 20:48 Catapres - PO 11/29/16 20:36 0.1 mg ONCE ONE Administration <Jad Ragsdale - Last Filed: 11/29/16 21:22> - LABORATORY CBC & Chemistry Diagram: 11/29/16 21:14 11/29/16 21:14 <Merrill Joshi - Last Filed: 12/01/16 11:51> Medical Decision Making - Medical Decision Making 11/29/16 20:39 A portion of this note was documented by scribe services under my direction. I have reviewed the details of the note, within reason, and agree with the documentation with the following case summary and management plan written by me. Patient treated in the ED. Patient arrives by ambulance to the emergency department. Nursing notes are reviewed and incorporated into the medical decision-making. Vital signs reviewed. Peripheral IV access obtained by the nurse, laboratory studies are drawn and sent, reviewed and interpreted by myself. Vital Signs Temp Pulse Resp BP Pulse Ox 98.7 F 56 L 20 232/73 98 11/29/16 19:55 11/29/16 19:55 11/29/16 19:55 11/29/16 19:55 11/29/16 19:55 71-year-old female with past medical history of end-stage renal disease on dialysis, Mondays, history of anemia, history of hypertension , diabetes sent directly from dialysis center for systolic blood pressures of 230s. The patient reports that she was recently admitted and discharged yesterday from [facility]. She was worked up from a GI perspective where she had received an endoscopy on November 22 for potential cancer. However , the patient reports that there was no cancer and the patient was discharged yesterday. Today, she reports chronic epigastric discomfort since the but no other complaints. She had underwent dialysis today at her Center which it was noted that her blood pressures were elevated. Patient denies any chest pain or shortness of breath. Patient was sent to the ER for further management. We'll check an lab, EKG and try to control the blood pressures. We'll start with clonidine and reassess. A blood pressures are improved, and the workup is unremarkable, the patient can be discharged with primary care physician follow- up. 11/30/16 00:28 Blood pressure repeated. Now systolics 140s. The patient reports no symptoms and requests to go home. CBC, BMP 11/29/16 21:14 11/29/16 21:14 CMP Sodium 134 mmol/L (136-145) L 11/29/16 21:14 Potassium 4.1 mmol/L (3.5-5.1) 11/29/16 21:14 Chloride 93 mmol/L (98-107) L 11/29/16 21:14 Carbon Dioxide 29 mmol/L (21-32) 11/29/16 21:14 Anion Gap 12 (8-16) 11/29/16 21:14 BUN 12 mg/dL (7-18) D 11/29/16 21:14 Creatinine 4.4 mg/dL (0.55-1.02) H 11/29/16 21:14 Creat Clearance w eGFR 9.89 (>60) 11/29/16 21:14 Random Glucose 209 mg/dL (74-106) H 11/29/16 21:14 Calcium 8.3 mg/dL (8.5-10.1) L 11/29/16 21:14 Total Bilirubin 0.5 mg/dL (0.2-1.0) 11/29/16 21:14 AST 14 U/L (15-37) L 11/29/16 21:14 ALT 14 U/L (12-78) 11/29/16 21:14 Alkaline Phosphatase 97 U/L (45-117) D 11/29/16 21:14 Creatine Kinase 106 IU/L (26-192) 11/29/16 21:14 Troponin I 0.05 ng/ml (0.00-0.05) 11/29/16 21:14 Total Protein 6.5 g/dl (6.4-8.2) 11/29/16 21:14 Albumin 3.3 g/dl (3.4-5.0) L 11/29/16 21:14 Patient will be discharged. She will follow with her primary care physician. I discussed the physical exam findings, ancillary test results and final diagnoses with the patient. I answered all of the patient's questions. The patient was satisfied with the care received and felt comfortable with the discharge plan and treatment plan. The patient will call their primary care physician within 24 hours to arrange follow-up and will return to the Emergency Department with any new, persistant or worsening symptoms. <Merrill Joshi - Last Filed: 12/01/16 11:51> *DC/Admit/Observation/Transfer - Attestations Scribe Attestion: 11/29/16 21:23 Documentation prepared by Jad Ragsdale, acting as medical transcription for Merrill Joshi MD. <Jad Ragsdale - Last Filed: 11/29/16 21:22> - Discharge Dispostion Admit: No <Merrill Joshi - Last Filed: 12/01/16 11:51> Diagnosis at time of Disposition: Hypertension Qualifiers: Hypertension type: essential hypertension Qualified Code(s): I10 - Essential ( primary) hypertension - Discharge Dispostion Disposition: HOME Condition at time of disposition: Good - Referrals Referrals: Sobeida Chavez MD [Primary Care Provider] - - Patient Instructions Printed Discharge Instructions: DI for High Blood Pressure, How to Monitor Your Blood Pressure at Home Additional Instructions: Please follow up with primary care physician. Print Language: ALGERIAN
[2016-11-29] MEDS ORDERED: cloNIDine HCL 0.1 MG TABLET ONE (20:44)
[2016-11-29 21:30] LABS: BASOPHIL 0.9 % (0-2.0); EOSINOPHIL 3.5 % (0-4.5); MCH 28.7 pg (25.7-33.7); MCHC 33.1 g/dl (32.0-36.0); MEAN CELL VOLUME 86.8 fl (80-96); MEAN PLT VOLUME 9.3 fl (7.5-11.1); NEUTROPHILS 75.4 % (42.8-82.8); PLATELET COUNT 153 K/MM3 (134-434); RDW 14.4 % (11.6-15.6); WHITE BLOOD COUNT 6.7 K/mm3 (4.0-10.0)
[2016-11-29 23:15] LABS: ALBUMIN 3.3 g/dl (3.4-5.0)
[2016-11-29 23:42] LABS: BILIRUBIN,TOTAL 0.5 mg/dL (0.2-1.0); CALCIUM 8.3 mg/dL (8.5-10.1); CREATININE 4.4 mg/dL (0.55-1.02); TOT PROT 6.5 g/dl (6.4-8.2); TROPONIN I 0.05 ng/ml (0.00-0.05)
[2016-11-30 00:12] VITALS: BP 139/60; PULSE 65
--- NOTE | 2016-11-30 14:15 | EKG ---
Test Reason : Blood Pressure : / mmHG Vent. Rate : 060 BPM Atrial Rate : 060 BPM P-R Int : 204 ms QRS Dur : 114 ms QT Int : 458 ms P-R-T Axes : 079 -42 088 degrees QTc Int : 458 ms NORMAL SINUS RHYTHM LEFT AXIS DEVIATION NONSPECIFIC T WAVE ABNORMALITY ABNORMAL ECG WHEN COMPARED WITH ECG OF 15-NOV-2016 19:10, INCOMPLETE RIGHT BUNDLE BRANCH BLOCK IS NO LONGER PRESENT MINIMAL CRITERIA FOR SEPTAL INFARCT ARE NO LONGER PRESENT Confirmed by KLEVER NAVA MD ([id number]) on 11/30/2016 2:14:34 PM Referred By: Confirmed By:KLEVER NAVA MD
== END 2016-11-30 00:37 | disposition home or self-care (01) ==
LOC: JER 19:54
DX: I10 Essential (primary) hypertension (principal); Z99.2 Dependence on renal dialysis; I50.9 Heart failure, unspecified; E11.22 Type 2 diabetes mellitus with diabetic chronic kidney disease; I12.0 Hypertensive chronic kidney disease with stage 5 chronic kidney disease or end stage renal disease; N18.6 End stage renal disease
CPT/HCPCS: 36415; 80053; 82550; 84484; 85025; 93005; 93010; 99282-25

== ENCOUNTER 2016-12-22 15:38 | Inpatient (IN) | payer OTHER ==
[2016-12-22 15:56] VITALS: BMI 24.5
[2016-12-22] MEDS ORDERED: NITROGLYCERIN SUBLINGUAL 1/150 0.4 MG TAB SL ONE (16:33)
[2016-12-22] MEDS ORDERED: ASPIRIN 81 MG CHEWABLE TABLETS PO ONE (16:33)
[2016-12-22] MEDS ORDERED: ASPIRIN 81 MG CHEWABLE TABLETS ONE (16:40)
[2016-12-22] MEDS ORDERED: NITROGLYCERIN SUBLINGUAL 1/150 0.4 MG TAB ONE (16:40)
[2016-12-22 16:44] LABS: BASOPHIL 0.8 % (0-2.0); EOSINOPHIL 2.3 % (0-4.5); MCH 27.7 pg (25.7-33.7); MCHC 32.3 g/dl (32.0-36.0); MEAN CELL VOLUME 85.8 fl (80-96); MEAN PLT VOLUME 8.4 fl (7.5-11.1); NEUTROPHILS 84.7 % (42.8-82.8); PLATELET COUNT 217 K/MM3 (134-434); RDW 15.9 % (11.6-15.6); WHITE BLOOD COUNT 10.8 K/mm3 (4.0-10.0)
[2016-12-22 16:56] LABS: INR 1.16 (0.82-1.09); PROTHROMBIN TIME (PATIENT) 12.8 SEC (9.98-11.88)
--- NOTE | 2016-12-22 16:57 | PDOC ---
History of Present Illness - General History Source: Patient, Old Records Exam Limitations: No Limitations <Merrill Joshi - Last Filed: 12/22/16 18:52> - General History Source: Patient, Old Records Exam Limitations: No Limitations - History of Present Illness Initial Comments: 12/22/16 18:05 The patient is a 71 year old female, with a significant past medical history of HTN, hyperlipidemia, diabetes, CHF and ESRD (fistula of the left upper extremity ; on dialysis MWF), who presents to the emergency department with intermittent nonradiating chest pressure and elevated blood pressure for the past 2-3 days. The patient reports blood pressures with systolic readings to the 300s although she has been compliant with her medications. The patient additionally reports associated shortness of breath, diaphoresis, nausea and a mild tension headache. The patient denies fever, chills, recent illnesses, vomiting, diarrhea or dysuria. The patient did not go to dialysis today, she states her last dialysis was on 12/20/2016. The patient's primary language is [place]. Allergies: None reported. Past Surgical History: Cardiac Surgery. Social History: Non smoker. Denies alcohol or drug use. PCP: Dr. Ken Burgos <Merari Morales - Last Filed: 12/22/16 19:24> - General Chief Complaint: Chest Pain Stated Complaint: CHEST PAIN, DIFF. BREATHING Time Seen by Provider: 12/22/16 16:14 Past History - Past Medical History CHF: Yes Diabetes: Yes Dialysis: Yes Disorders: Yes (esrd, dialysis) HTN: Yes Hypercholesterolemia: Yes - Surgical History Cardiac Surgery: Yes - Immunization History Immunization Up to Date: Yes - Psycho/Social/Smoking Cessation Hx Anxiety: No Suicidal Ideation: No Smoking History: Never smoked Have you smoked in the past 12 months: No Number of Cigarettes Smoked Daily: 0 Hx Alcohol Use: No Drug/Substance Use Hx: No Substance Use Type: None Hx Substance Use Treatment: No <Merrill Joshi - Last Filed: 12/22/16 18:52> <Merari Morales - Last Filed: 12/22/16 19:24> - Past Medical History Allergies/Adverse Reactions: Allergies Allergy/AdvReac Type Severity Reaction Status Date / Time No Known Allergies Allergy Verified 12/22/16 15:56 Home Medications: Ambulatory Orders Calcium Acetate [Phoslo -] 667 mg PO TIDCM 04/17/16 Furosemide [Lasix -] 80 mg PO DAILY 04/17/16 Losartan Potassium [Cozaar] 100 mg PO DAILY 04/17/16 Nifedipine ER [Procardia XL -] 60 mg PO BID 04/17/16 Pravastatin Sodium [Pravachol -] 20 mg PO HS 04/17/16 Review of Systems - Review of Systems Able to Perform ROS?: Yes Comments:: 12/22/16 18:05 GENERAL/CONSTITUTIONAL: No fever or chills. No weakness. HEAD, EYES, EARS, NOSE AND THROAT: No change in vision. No ear pain or discharge. No sore throat. CARDIOVASCULAR: +Chest pressure, elevated blood pressure, diaphoresis, shortness of breath. RESPIRATORY: No cough, wheezing, or hemoptysis. GASTROINTESTINAL: +Nausea. No vomiting, diarrhea or constipation. GENITOURINARY: No dysuria, frequency, or change in urination. MUSCULOSKELETAL: No joint or muscle swelling or pain. No neck or back pain. SKIN: No rash. NEUROLOGIC: +Headache. No vertigo, loss of consciousness, or change in strength/ sensation. ENDOCRINE: No increased thirst. No abnormal weight change. HEMATOLOGIC/LYMPHATIC: No anemia, easy bleeding, or history of blood clots. ALLERGIC/IMMUNOLOGIC: No hives or skin allergy. <Merari Morales - Last Filed: 12/22/16 19:24> *Physical Exam - Vital Signs Last Vital Signs Temp Pulse Resp BP Pulse Ox 98.6 F 72 18 227/82 95 12/22/16 15:52 12/22/16 15:52 12/22/16 15:52 12/22/16 15:52 12/22/16 16:01 <Merrill Joshi - Last Filed: 12/22/16 18:52> - Vital Signs Last Vital Signs Temp Pulse Resp BP Pulse Ox 98.6 F 72 18 227/82 95 12/22/16 15:52 12/22/16 15:52 12/22/16 15:52 12/22/16 15:52 12/22/16 16:01 - Physical Exam Comments: 12/22/16 17:52 GENERAL: Awake, alert, and fully oriented, in no acute distress. HEAD: No signs of trauma. EYES: PERRLA, EOMI, sclera anicteric, conjunctiva clear. ENT: Auricles normal inspection, hearing grossly normal, nares patent, oropharynx clear without exudates. Moist mucosa. NECK: Normal ROM, supple, no lymphadenopathy, JVD, or masses. LUNGS: Rales at the bilateral lung bases. Breath sounds equal. No wheezes, and no crackles. HEART: Regular rate and rhythm, normal S1 and S2, no murmurs, rubs or gallops. ABDOMEN: Soft, nontender, normoactive bowel sounds. No guarding, no rebound. No masses. EXTREMITIES: Fistula of the left upper extremity with palpable thrill. Normal range of motion, no edema. No clubbing or cyanosis. No cords, erythema, or tenderness. NEUROLOGICAL: Cranial nerves II through XII grossly intact. Normal speech, gait is deferred. SKIN: Warm, dry, normal turgor, no rashes or lesions noted. <Merari Morales - Last Filed: 12/22/16 19:24> Heart Score/ECG Review - History History: Highly suspicious - Electrocardiogram EKG: Non specific repolarization disturbance - Age Age: >/= 65 - Risk Factors Based on the list above the patient has:: >/=3 risk factors or Hx atherosclerotic disease - Troponin Troponin: </= normal limit - Score Heart Score - Total: 7 #1 ECG reviewed & interpreted by me at: 16:00 12/22/16 17:38 NSR 71 with 1st degree AV block, incomplete RBBB, LVH, no std/david, QTC 484 msec <Merrill Joshi - Last Filed: 12/22/16 18:52> ED Treatment Course - LABORATORY CBC & Chemistry Diagram: 12/22/16 16:36 12/22/16 16:36 - ADDITIONAL ORDERS Additional order review: 12/22/16 16:36 RBC 3.23 L MCV 85.8 MCHC 32.3 RDW 15.9 H D MPV 8.4 Neutrophils % 84.7 H Lymphocytes % 7.0 L D Monocytes % 5.2 Eosinophils % 2.3 Basophils % 0.8 - RADIOLOGY Radiology Studies Ordered: Category Date Time Status CHEST X-RAY PORTABLE* [RAD] Stat Radiology 12/22/16 16:33 Ordered - Medications Given in the ED: ED Medications Discontinued Medications Generic Name Dose Route Start Last Admin Trade Name Freq PRN Reason Stop Dose Admin Aspirin 324 mg 12/22/16 16:33 12/22/16 16:43 Asa - PO 12/22/16 16:34 324 mg ONCE ONE Administration Nitroglycerin 0.4 mg 12/22/16 16:33 12/22/16 16:43 Nitrostat - SL 12/22/16 16:34 0.4 mg ONCE ONE Administration <Merrill Joshi - Last Filed: 12/22/16 18:52> - LABORATORY CBC & Chemistry Diagram: 12/22/16 16:36 12/22/16 16:36 - ADDITIONAL ORDERS Additional order review: Laboratory Results 12/22/16 16:36 INR 1.16 H PTT (Actin FS) 34.9 H 12/22/16 16:36 RBC 3.23 L MCV 85.8 MCHC 32.3 RDW 15.9 H D MPV 8.4 Neutrophils % 84.7 H Lymphocytes % 7.0 L D Monocytes % 5.2 Eosinophils % 2.3 Basophils % 0.8 - Medications Given in the ED: ED Medications Discontinued Medications Generic Name Dose Route Start Last Admin Trade Name Ignacio PRN Reason Stop Dose Admin Aspirin 324 mg 12/22/16 16:33 12/22/16 16:43 Asa - PO 12/22/16 16:34 324 mg ONCE ONE Administration Nitroglycerin 0.4 mg 12/22/16 16:33 12/22/16 16:43 Nitrostat - SL 12/22/16 16:34 0.4 mg ONCE ONE Administration <Merari Morales - Last Filed: 12/22/16 19:24> Medical Decision Making - Medical Decision Making 12/22/16 16:51 A portion of this note was written by my scribe, under my supervision. Vital Signs Temp Pulse Resp BP Pulse Ox 98.6 F 72 18 227/82 95 12/22/16 15:52 12/22/16 15:52 12/22/16 15:52 12/22/16 15:52 12/22/16 16:01 71 year old female with history of ESRD on dialysis M/W/F c/ LUE fistula, HTN, DM, anemia presents with elevated BP and chest pressure. Last dialysis was 2 days ago. Since yesterday, pt reported elevated blood pressures with systolics in the 300s, despite being adherent to be her BP medications. Since yesterday night, she started to develop a gradual onset of midsternal chest pressure with no radiation but with associated SOB, nausea, and diaphoresis. Reports a mild tension like headache, but complains more about the chest. Denies recent illnesses, fevers, chills, cough. Did not go to dialysis today. Pt's BP noted to be 227/82. Will trial nitroglycerin for chest pressure and elevated BP. Will dispense aspirin and MOOKIE. This will be considered as a hypertensive emergency. Pt will need dialysis today. Will attempt to decrease BP and admit the patient to the hospital for further management. 12/22/16 18:52 CBC, BMP 12/22/16 16:36 12/22/16 16:36 CMP Sodium 134 mmol/L (136-145) L 12/22/16 16:36 Potassium 4.6 mmol/L (3.5-5.1) 12/22/16 16:36 Chloride 93 mmol/L (98-107) L 12/22/16 16:36 Carbon Dioxide 25 mmol/L (21-32) 12/22/16 16:36 Anion Gap 16 (8-16) 12/22/16 16:36 BUN 41 mg/dL (7-18) H D 12/22/16 16:36 Creatinine 6.2 mg/dL (0.55-1.02) H D 12/22/16 16:36 Creat Clearance w eGFR 6.66 (>60) 12/22/16 16:36 Random Glucose 315 mg/dL (74-106) H* D 12/22/16 16:36 Calcium 8.6 mg/dL (8.5-10.1) 12/22/16 16:36 Phosphorus 4.4 mg/dL (2.5-4.9) D 12/22/16 16:36 Magnesium 2.2 mg/dL (1.8-2.4) 12/22/16 16:36 Total Bilirubin 0.7 mg/dL (0.2-1.0) D 12/22/16 16:36 AST 11 U/L (15-37) L D 12/22/16 16:36 ALT 14 U/L (12-78) 12/22/16 16:36 Alkaline Phosphatase 116 U/L (45-117) 12/22/16 16:36 Creatine Kinase 89 IU/L (26-192) 12/22/16 16:36 Troponin I 0.05 ng/ml (0.00-0.05) 12/22/16 16:36 Total Protein 6.7 g/dl (6.4-8.2) 12/22/16 16:36 Albumin 3.4 g/dl (3.4-5.0) 12/22/16 16:36 Trop negative. Potassium is 4.6. Case discussed with Dr. Mcmahan. Will attempt to dialyze tonight. Pt's BP continues to remain elevated in 230s despite nitro and clonidine. Pt however reports that the chest discomfort improved drastically. Case discussed with bria. Patient is admitted under telemetry under Dr. Marlow. Case discussed in detail with admitting physician including history, physical exam and ancillary studies. Admitting physician has assumed care for the patient, will follow all pending diagnostics and will complete the evaluation and treatment. <Merrill Joshi - Last Filed: 12/22/16 18:52> - Medical Decision Making 12/22/16 17:54 EXAM: RAD/CHEST X-RAY PORTABLE Reviewed By: Dr. Jerry Price IMPRESSION: Large heart. Congestive changes. Called Dr. Mcmahan at at 16:53, 17:24. Referred to answering service, awaiting callback. Dr. Mcmahan returned call at 17:28, case discussed. <Merari Morales - Last Filed: 12/22/16 19:24> *DC/Admit/Observation/Transfer - Discharge Dispostion Admit: Yes <Merrill Joshi - Last Filed: 12/22/16 18:52> - Attestations Scribe Attestion: 12/22/16 17:29 Documentation prepared by Merari Morales, acting as medical office worker for Merrill Joshi MD. <Merari Morales - Last Filed: 12/22/16 19:24> Diagnosis at time of Disposition: ESRD (end stage renal disease) on dialysis, Hypertensive emergency, Shortness of breath
[2016-12-22 16:59] LABS: ACTIVATED PTT 34.9 SECONDS (26.9-34.4)
[2016-12-22 17:07] LABS: ALBUMIN 3.4 g/dl (3.4-5.0); BILIRUBIN,TOTAL 0.7 mg/dL (0.2-1.0); CALCIUM 8.6 mg/dL (8.5-10.1); CREATININE 6.2 mg/dL (0.55-1.02); MAGNESIUM 2.2 mg/dL (1.8-2.4); PHOSPHOROUS 4.4 mg/dL (2.5-4.9); TOT PROT 6.7 g/dl (6.4-8.2)
[2016-12-22 17:22] LABS: TROPONIN I 0.05 ng/ml (0.00-0.05)
[2016-12-22] MEDS ORDERED: EPOETIN ALFA 2,000 UNITS/1 ML VIAL IVPUSH ONE (17:34)
[2016-12-22] MEDS ORDERED: cloNIDine HCL 0.1 MG TABLET PO ONE ×2 (17:38→22:43)
[2016-12-22] MEDS ORDERED: cloNIDine HCL 0.1 MG TABLET ONE (17:42)
[2016-12-22] MEDS ORDERED: EPOETIN ALFA 10,000 UNIT, EPOETIN ALFA 2,000 UNIT IVPUSH ONE ×2 (17:45→21:30)
--- NOTE | 2016-12-22 19:19 | HP ---
CHIEF COMPLAINT: Elevated Blood Pressure, Chest Pain, Dizziness PCP: HISTORY OF PRESENT ILLNESS: This is a 71 y/o female with a PMHx of: ESRD (HD- M,W,F), HTN, DM. Who presents to the emergency department with elevated BP, CP, and dizziness since 4am. Patient is Egyptian speaking, [employer] Line used # [id number], name- Denzel. Patient reports the chest pain as non-radiating, with SOB. Patient reports having elevated blood pressure with dizziness. Patient reports last dialysis on Sunday. Patient reports being compliant with her home meds. Patient denies fever, chills, cough, AP, vomiting, diarrhea, constipation. Patient last admission was in November for Anemia, CHF. ER course was notable for: (1) BP 200s/80-90s, given Catapres po (2) Chest Xray- fluid overload (3) BNP [id number] Recent Travel: None PAST MEDICAL HISTORY: See HPI PAST SURGICAL HISTORY: AV Fistula- L arm Cataracts Removed Cornel Colonoscopy/EGD Social History: Smoking: Never Alcohol: None Drugs: None Lives with Son, not working Family History: Children: Diabetes Allergies No Known Allergies Allergy (Verified 12/22/16 15:56) HOME MEDICATIONS: Home Medications Medication Instructions Recorded Calcium Acetate [Phoslo -] 667 mg PO TIDCM 04/17/16 Furosemide [Lasix -] 80 mg PO DAILY 04/17/16 Losartan Potassium [Cozaar] 100 mg PO DAILY 04/17/16 Nifedipine ER [Procardia XL -] 60 mg PO BID 04/17/16 Pravastatin Sodium [Pravachol -] 20 mg PO HS 04/17/16 REVIEW OF SYSTEMS CONSTITUTIONAL: Absent: fever, chills, diaphoresis, generalized weakness, malaise, loss of appetite, weight change HEENT: facial swelling Absent: rhinorrhea, nasal congestion, throat pain, throat swelling, difficulty swallowing, mouth swelling, ear pain, eye pain, visual changes CARDIOVASCULAR: chest pain, Absent: syncope, palpitations, irregular heart rate, lightheadedness, peripheral edema RESPIRATORY: shortness of breath Absent: cough, dyspnea with exertion, orthopnea, wheezing, stridor, hemoptysis GASTROINTESTINAL: Absent: abdominal pain, abdominal distension, nausea, vomiting, diarrhea, constipation, melena, hematochezia GENITOURINARY: Absent: dysuria, frequency, urgency, hesitancy, hematuria, flank pain, genital pain MUSCULOSKELETAL: Absent: myalgia, arthralgia, joint swelling, back pain, neck pain SKIN: Absent: rash, itching, pallor HEMATOLOGIC/IMMUNOLOGIC: Absent: easy bleeding, easy bruising, lymphadenopathy, frequent infections ENDOCRINE: Absent: unexplained weight gain, unexplained weight loss, heat intolerance, cold intolerance NEUROLOGIC: dizziness Absent: headache, focal weakness or paresthesias, unsteady gait, seizure, mental status changes, bladder or bowel incontinence PSYCHIATRIC: Absent: anxiety, depression, suicidal or homicidal ideation, hallucinations. PHYSICAL EXAMINATION Vital Signs - 24 hr 12/22/16 12/22/16 12/22/16 15:52 16:01 17:36 Temperature 98.6 F Pulse Rate 72 Pulse Rate [ 70 Apical] Respiratory 18 18 Rate Blood Pressure 227/82 Blood Pressure 237/81 [Right Arm] O2 Sat by Pulse 95 95 96 Oximetry (%) 12/22/16 18:59 Temperature Pulse Rate Pulse Rate [ 73 Apical] Respiratory 18 Rate Blood Pressure Blood Pressure 239/89 [Right Arm] O2 Sat by Pulse 96 Oximetry (%) GENERAL: Awake, alert, and fully oriented, Facial swelling, in no acute distress. HEAD: Normal with no signs of trauma. EYES: Pupils equal, round and reactive to light, extraocular movements intact, sclera anicteric, conjunctiva clear. No lid lag. EARS, NOSE, THROAT: Ears normal, nares patent, oropharynx clear without exudates. Moist mucous membranes. NECK: Normal range of motion, supple without lymphadenopathy, JVD, or masses. LUNGS: Breath sounds equal, clear to auscultation bilaterally. No wheezes, and no crackles. No accessory muscle use. HEART: Regular rate and rhythm, normal S1 and S2 without murmur, rub or gallop. ABDOMEN: Soft, nontender, not distended, normoactive bowel sounds, no guarding, no rebound, no masses. No hepatomegaly or splenomegaly. MUSCULOSKELETAL: Normal range of motion at all joints. No bony deformities or tenderness. No CVA tenderness. UPPER EXTREMITIES: 2+ pulses, warm, well-perfused. Left AV fistula- +bruit/ thrill. No cyanosis. No clubbing. Cap refill <2 seconds. No peripheral edema. LOWER EXTREMITIES: 2+ pulses, warm, well-perfused. No calf tenderness. No peripheral edema. NEUROLOGICAL: Cranial nerves II-XII intact. Normal speech. Gait not observed. PSYCHIATRIC: Cooperative. Good eye contact. Appropriate mood and affect. SKIN: Warm, dry, normal turgor, no rashes or lesions noted. Laboratory Results - last 24 hr 12/22/16 12/22/16 12/22/16 16:36 16:36 16:36 WBC 10.8 H D RBC 3.23 L Hgb 8.9 L Hct 27.7 L MCV 85.8 MCHC 32.3 RDW 15.9 H D Plt Count 217 D MPV 8.4 Neutrophils % 84.7 H Lymphocytes % 7.0 L D Monocytes % 5.2 Eosinophils % 2.3 Basophils % 0.8 INR 1.16 H PTT (Actin FS) 34.9 H Sodium 134 L Potassium 4.6 Chloride 93 L Carbon Dioxide 25 Anion Gap 16 BUN 41 H D Creatinine 6.2 H D Creat Clearance w eGFR 6.66 Random Glucose 315 H* D Calcium 8.6 Phosphorus 4.4 D Magnesium 2.2 Total Bilirubin 0.7 D AST 11 L D ALT 14 Alkaline Phosphatase 116 Creatine Kinase 89 Troponin I 0.05 Total Protein 6.7 Albumin 3.4 ASSESSMENT/PLAN: This is a 71 y/o female with a PMHx of: ESRD (HD- M,W,F), HTN, DM. Who presents to the ED with SOB, CP, elevated BP. Admitted for Hypertensive Emergency r/o MO for further evaluation of their emergent condition. Plan: 1. Hypertensive Emergency - Likely secondary to Fluid Overload - Tele monitoring - Pending emergent Dialysis - Catapres given in ED - Will continue to treat with Catapres, Enalapril IV as indicated - Monitor MAP - Monitor renal function 2. Chest Pain r/o MO - Tele monitoring - HEART Score 6 - Appreciate Cardiology Consult - Continue Asa - Cardiac Enzyme neg x1 - Serial Enzymes - Lipid Panel in am 3. ESRD - HD (M,W,F) - Appreciate Nephrology Consult for HD Management 4. Diabetes Mellitus - Uncontrolled - BGMs - ISS - HgbA1C in am 5. FEN - PO Fluids < 1L restriction - Replete lytes prn - Low NA, 1800 ADA, Renal Diet 6. DVT Prophylaxis - OOB - SCDs - Heparin SQ Code Status: Full Code Problem List - Problem (1) Hypertensive emergency Code(s): I10 - ESSENTIAL (PRIMARY) HYPERTENSION (2) Shortness of breath Code(s): R06.02 - SHORTNESS OF BREATH (3) ESRD (end stage renal disease) on dialysis Code(s): N18.6 - END STAGE RENAL DISEASE Z99.2 - DEPENDENCE ON RENAL DIALYSIS (4) Diabetes Code(s): E11.9 - TYPE 2 DIABETES MELLITUS WITHOUT COMPLICATIONS (5) Hyperlipidemia Code(s): E78.5 - HYPERLIPIDEMIA, UNSPECIFIED (6) Hypertension Code(s): I10 - ESSENTIAL (PRIMARY) HYPERTENSION Qualifiers: Hypertension type: essential hypertension Qualified Code(s): I10 - Essential (primary) hypertension (7) DVT prophylaxis Code(s): XBK4919 - Visit type - Emergency Visit Emergency Visit: Yes ED Registration Date: 12/22/16 Care time: The patient presented to the Emergency Department on the above date and was hospitalized for further evaluation of their emergent condition. - New Patient This patient is new to me today: Yes Date on this admission: 12/22/16 - Critical Care Critical Care patient: No
[2016-12-22 22:18] LABS: TROPONIN I 0.05 ng/ml (0.00-0.05)
[2016-12-22] MEDS ORDERED: ENALAPRILAT DIHYDRATE 2.5 MG/2 ML VIAL IVPB ONE (22:33)
[2016-12-23] MEDS ORDERED: ENALAPRILAT DIHYDRATE 2.5 MG/2 ML VIAL IVPB ONE (01:50)
[2016-12-23 08:10] LABS: BASOPHIL 1.1 % (0-2.0); EOSINOPHIL 3.8 % (0-4.5); MCH 27.9 pg (25.7-33.7); MCHC 32.5 g/dl (32.0-36.0); MEAN PLT VOLUME 8.4 fl (7.5-11.1); NEUTROPHILS 77.9 % (42.8-82.8); PLATELET COUNT 205 K/MM3 (134-434); RDW 16.3 % (11.6-15.6); WHITE BLOOD COUNT 8.9 K/mm3 (4.0-10.0)
[2016-12-23] MEDS ORDERED: cloNIDine HCL 0.1 MG TABLET PO SCH (08:15)
--- NOTE | 2016-12-23 08:22 | PN ---
Physical Exam: SUBJECTIVE: Patient seen and examined. Offers no complaints. OBJECTIVE: Vital Signs Period Temp Pulse Resp BP Sys/Parker Pulse Ox Last 24 Hr 97.6 F-98.7 F 61-72 18-20 209-253/85-107 96-97 GENERAL: The patient is awake, alert, and fully oriented, in no acute distress. HEAD: Normal with no signs of trauma. EYES: PERRL, extraocular movements intact, sclera anicteric, conjunctiva clear. No ptosis. LUNGS: Breath sounds equal, clear to auscultation bilaterally, no wheezes, no crackles, no accessory muscle use. HEART: Regular rate and rhythm, S1, S2 without murmur, rub or gallop. ABDOMEN: Soft, nontender, nondistended, normoactive bowel sounds, no guarding, no rebound EXTREMITIES: 2+ pulses, warm, well-perfused, no edema. NEUROLOGICAL: Cranial nerves II through XII grossly intact. Normal speech, gait not observed. Laboratory Results - last 24 hr 12/22/16 12/22/16 12/22/16 16:36 16:36 16:36 WBC 10.8 H D RBC 3.23 L Hgb 8.9 L Hct 27.7 L MCV 85.8 MCHC 32.3 RDW 15.9 H D Plt Count 217 D MPV 8.4 Neutrophils % 84.7 H Lymphocytes % 7.0 L D Monocytes % 5.2 Eosinophils % 2.3 Basophils % 0.8 INR 1.16 H PTT (Actin FS) 34.9 H Sodium 134 L Potassium 4.6 Chloride 93 L Carbon Dioxide 25 Anion Gap 16 BUN 41 H D Creatinine 6.2 H D Creat Clearance w eGFR 6.66 Random Glucose 315 H* D Hemoglobin A1c % Calcium 8.6 Phosphorus 4.4 D Magnesium 2.2 Total Bilirubin 0.7 D AST 11 L D ALT 14 Alkaline Phosphatase 116 Creatine Kinase 89 Troponin I 0.05 B-Natriuretic Peptide [id number] H Total Protein 6.7 Albumin 3.4 Triglycerides Cholesterol Total LDL Cholesterol HDL Cholesterol HCV Quantitation HCV RNA log copies/mL 12/22/16 12/22/16 12/23/16 21:15 21:15 05:45 WBC RBC Hgb Hct MCV MCHC RDW Plt Count MPV Neutrophils % Lymphocytes % Monocytes % Eosinophils % Basophils % INR PTT (Actin FS) Sodium Potassium Chloride Carbon Dioxide Anion Gap BUN Creatinine Creat Clearance w eGFR Random Glucose Hemoglobin A1c % Calcium Phosphorus Magnesium Total Bilirubin AST ALT Alkaline Phosphatase Creatine Kinase 86 60 Troponin I 0.05 0.05 B-Natriuretic Peptide Total Protein Albumin Triglycerides Cholesterol Total LDL Cholesterol HDL Cholesterol HCV Quantitation Cancelled HCV RNA log copies/mL Cancelled 12/23/16 12/23/16 12/23/16 05:45 05:45 05:45 WBC 8.9 RBC 3.27 L Hgb 9.1 L Hct 28.1 L MCV 86.0 MCHC 32.5 RDW 16.3 H Plt Count 205 MPV 8.4 Neutrophils % 77.9 Lymphocytes % 8.9 D Monocytes % 8.3 Eosinophils % 3.8 Basophils % 1.1 INR PTT (Actin FS) Sodium 139 Potassium 3.8 Chloride 97 L Carbon Dioxide 29 Anion Gap 13 BUN 23 H D Creatinine 4.2 H D Creat Clearance w eGFR Random Glucose 215 H D Hemoglobin A1c % 6.8 H D Calcium 8.7 Phosphorus Magnesium Total Bilirubin AST ALT Alkaline Phosphatase Creatine Kinase 63 Troponin I 0.06 H B-Natriuretic Peptide Total Protein Albumin Triglycerides 155 D Cholesterol 116 D Total LDL Cholesterol 57 HDL Cholesterol 43 D HCV Quantitation HCV RNA log copies/mL Active Medications Generic Name Dose Route Start Last Admin Trade Name Freq PRN Reason Stop Dose Admin Calcium Acetate 667 mg 12/23/16 12:00 Phoslo - PO TIDCM KARINA Furosemide 80 mg 12/23/16 10:00 Lasix - PO DAILY KARINA Labetalol HCl 400 mg 12/23/16 10:00 Normodyne - PO DAILY KARINA Labetalol HCl 200 mg 12/23/16 12:00 Normodyne - PO DAILY KARINA Labetalol HCl 200 mg 12/23/16 22:00 Normodyne - PO HS KARINA Losartan Potassium 100 mg 12/23/16 10:00 Cozaar - PO DAILY KARINA Nifedipine 60 mg 12/23/16 10:00 Procardia Xl - PO BID KARINA Pravastatin Sodium 20 mg 12/23/16 10:00 Pravachol PO DAILY KARINA ASSESSMENT & PLAN 71 year-old woman with a PMH of HTN, HLD, ESRD on HD (M,W,F), anemia, IDDM, 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 Admitted for hypertensive emergency, chest pain, and dizziness. 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 Diehl for followup Chest pain --troponins negative x 3 --CXR shows cngestive changes --Echo ordered for Sunday --telemetry monitoring Dizziness, resolved IDDM --Hgb A1C 6.8 --Novolog sliding scale coverage h/o DVT --01/10/16 US of RUE: partial thrombosis of the RIJ (improved) and of the distal right cephalic vein --patient has previously refused full anticoagulation; also with h/o GI bleed and with possible malignancy Fluids/Electrolytes/Nutrition Fluids: PO intake adequate Electrolytes: replete as indicated Nutrition: renal diet DVT prophylaxis: subq heparin; ambulation; OOB Rehab: PT evaluation; daily PT Dispo: requires continued inpatient care. Full Code. Visit type - Emergency Visit Emergency Visit: Yes ED Registration Date: 12/22/16 Care time: The patient presented to the Emergency Department on the above date and was hospitalized for further evaluation of their emergent condition. - New Patient This patient is new to me today: Yes Date on this admission: 12/23/16 - Critical Care Critical Care patient: No
[2016-12-23 08:38] LABS: TROPONIN I 0.05 ng/ml (0.00-0.05)
[2016-12-23 08:39] LABS: CALCIUM 8.7 mg/dL (8.5-10.1)
[2016-12-23 08:45] LABS: CREATININE 4.2 mg/dL (0.55-1.02); TROPONIN I 0.06 ng/ml (0.00-0.05)
[2016-12-23] MEDS: LOSARTAN POTASSIUM 50 MG TABLET (FP) PO SCH (09:18)
[2016-12-23] MEDS: NIFEdipine E.R 60 MG TABLET (UD) PO SCH ×2 (09:19→21:07)
[2016-12-23] MEDS: LABETALOL HCL 200 MG TABLET (FP) PO SCH ×3 (09:19→21:08)
[2016-12-23] MEDS ORDERED: FUROSEMIDE 40 MG TABLET (FP) PO SCH (10:00)
[2016-12-23] MEDS: SPIRONOLACTONE 25 MG TABLET (FP) PO SCH (12:05)
[2016-12-23] MEDS: CALCIUM ACETATE 667 MG CAPSULE (FP) PO SCH ×2 (12:06→17:33)
--- NOTE | 2016-12-23 12:17 | CONSULT ---
Consult - text type - Consultation Consultation Note: Renal Consult for ESRD and difficult to control hypertension This is a 71 year old Woman with PMhx of ESRD on HD (MWF), Difficult to control hypertension, DM, CKD related Anemia who presented with complaints of chest pressure and very elvated BP for 2-> 3 days. Pt reports complinace with all her meds. Denies any extra salt intake. Denies any NSAID use. Has been compliant with all her dialysis treatments. No SOB, or chest pain today. + ZENDEJAS prior to presentation that is now improved. No flank pain or back pain. No palpitations. S/p Dialysis as intpatient last night with 3L UF. PMhx: as above Allergies: NKDA Family hx: NC Social hx: No T/A/D ROS: as per HPI, all other pertinent ros negative Home Meds: Home Medications Medication Instructions Recorded Calcium Acetate [Phoslo -] 667 mg PO TIDCM 04/17/16 Furosemide [Lasix -] 80 mg PO DAILY 04/17/16 Losartan Potassium [Cozaar] 100 mg PO DAILY 04/17/16 Nifedipine ER [Procardia XL -] 60 mg PO BID 04/17/16 Pravastatin Sodium [Pravachol -] 20 mg PO HS 04/17/16 Vital Signs Temperature 98.2 F 12/23/16 08:37 Pulse Rate 70 12/23/16 12:05 Respiratory Rate 20 12/23/16 12:05 Blood Pressure 140/58 12/23/16 12:05 O2 Sat by Pulse Oximetry (%) 98 12/23/16 09:00 Intake & Output 12/20/16 12/21/16 12/22/16 12/23/16 23:59 23:59 23:59 23:59 Intake Total 420 210 Balance 420 210 Weight 134 lb 134 lb 6.4 oz Gen: NAD, awake and alert HEENT: NC/AT, No JVD, Neck Supple CVS: RRR, No M/R Lungs: Dec BS at lung bases Abd: soft NT/ND Ext: No edmea, clubbing or cyanosis Access: Left ARM AVF + thrill and bruit Neuro: AAOX3, no focal defects CBC, BMP 12/23/16 05:45 12/23/16 05:45 Laboratory Tests 12/23/16 12/23/16 05:45 05:45 Hemoglobin A1c % 6.8 H D Calcium 8.7 Current Medications Atorvastatin Calcium (Lipitor -) 10 mg PO HS [facility] Calcium Acetate (Phoslo -) 667 mg PO TIDCM [facility] Last Admin: 12/23/16 12:06 Dose: 667 mg Labetalol HCl (Normodyne -) 400 mg PO DAILY [facility] Last Admin: 12/23/16 09:19 Dose: 400 mg Labetalol HCl (Normodyne -) 200 mg PO DAILY@1200 [facility] Last Admin: 12/23/16 12:06 Dose: 200 mg Labetalol HCl (Normodyne -) 200 mg PO HS [facility] Losartan Potassium (Cozaar -) 100 mg PO DAILY [facility] Last Admin: 12/23/16 09:18 Dose: 100 mg Nifedipine (Procardia Xl -) 60 mg PO BID [facility] Last Admin: 12/23/16 09:19 Dose: 60 mg Spironolactone (Aldactone -) 50 mg PO DAILY [facility] Last Admin: 12/23/16 12:05 Dose: 50 mg Torsemide (Demadex -) 80 mg PO DAILY [facility] A/P 71 year old Woman with PMhx of ESRD on HD (MWF), Difficult to control hypertension, DM, CKD related Anemia who presented with complaints of chest pressure and very elvated BP for 2-> 3 days. #Resistant Hypertension Prior Renin/Adlosterone ratio was elevated but total aldosterone level was low excluding primary hyperaldosteronism Check Renal Artery Doppler today r/o NAZARIO Add Spironolactone 50mg Daily for BP management Change lasix to Torsemide 80mg Daily (higher dose and longer acting) Continue Procardia XL 60mg BID (max dose) Continue Labetalol at present dose (can titrate up further if BP not controlled and HR > 60) Goal BP for next 24 hours ~160-170/90 #ESRD on HD S/p HD yesterday with 3L UF No acute indication for dialysis today Dose all meds for intermittent HD #CKD Related Anemia did not get CLIFTON yesterday because of elevated BP will resume with next HD treatment #DM Hgb A1C is 6.8 Thank you Will follow Alf Mcmahan DO
--- NOTE | 2016-12-23 12:38 | CONSULT ---
Consult - text type - Consultation Consultation Note: Cardiology 71 year old Woman with PMhx of ESRD on HD (MWF), labile hypertension, DM, CKD related Anemia who presented with complaints of chest pressure, dyspnea and very elvated BP for 2-> 3 days. Pt reports complinace with all her meds. Denies any extra salt intake. Denies any NSAID use. Has been compliant with all her dialysis treatments. ZENDEJAS prior to presentation that is now improved. S/p Dialysis as intpatient PMhx: as above Allergies: NKDA Family hx: NC Social hx: No T/A/D ROS: as per HPI, all other pertinent ros negative Home Meds: Home Medications Medication Instructions Recorded Calcium Acetate [Phoslo -] 667 mg PO TIDCM 04/17/16 Furosemide [Lasix -] 80 mg PO DAILY 04/17/16 Losartan Potassium [Cozaar] 100 mg PO DAILY 04/17/16 Nifedipine ER [Procardia XL -] 60 mg PO BID 04/17/16 Pravastatin Sodium [Pravachol -] 20 mg PO HS 04/17/16 PE: JAEL 1-2/6 basal fine rales abdomen soft no leg edema CXR mild CHF cardiomegaly EKG NSR, diffuse T changes Impression: Mild CHF HTN urgency; BP currently optimized borderline troponins stable from cardiac standpoint Rec: continue meds Echocardiogram HD to euvolemia
--- NOTE | 2016-12-23 13:40 | EKG ---
Test Reason : Blood Pressure : / mmHG Vent. Rate : 071 BPM Atrial Rate : 071 BPM P-R Int : 200 ms QRS Dur : 100 ms QT Int : 446 ms P-R-T Axes : 048 -36 071 degrees QTc Int : 484 ms NORMAL SINUS RHYTHM LEFT ATRIAL ENLARGEMENT LEFT AXIS DEVIATION INCOMPLETE RIGHT BUNDLE BRANCH BLOCK LEFT VENTRICULAR HYPERTROPHY ABNORMAL ECG WHEN COMPARED WITH ECG OF 29-NOV-2016 21:06, INCOMPLETE RIGHT BUNDLE BRANCH BLOCK IS NOW PRESENT Confirmed by CHLOE RODRIGEZ MD ([id number]) on 12/23/2016 1:40:00 PM Referred By: Confirmed By:CHLOE RODRIGEZ MD
[2016-12-23] MEDS: ATORVASTATIN CA 10 MG TABLET (FP) PO SCH (21:07)
--- NOTE | 2016-12-24 07:47 | PN ---
Physical Exam: SUBJECTIVE: Patient seen and examined OBJECTIVE: Vital Signs Period Temp Pulse Resp BP Sys/Parker Pulse Ox Last 24 Hr 97.6 F-98.6 F 62-76 16-22 130-225/58-90 98-98 GENERAL: The patient is awake, alert, and fully oriented, in no acute distress. HEAD: Normal with no signs of trauma. EYES: PERRL, extraocular movements intact, sclera anicteric, conjunctiva clear. No ptosis. LUNGS: Breath sounds equal, clear to auscultation bilaterally, no wheezes, no crackles, no accessory muscle use. HEART: Regular rate and rhythm, S1, S2 without murmur, rub or gallop. ABDOMEN: Soft, nontender, nondistended, normoactive bowel sounds, no guarding, no rebound EXTREMITIES: 2+ pulses, warm, well-perfused, no edema. NEUROLOGICAL: Cranial nerves II through XII grossly intact. Normal speech, gait not observed. Laboratory Results - last 24 hr 12/23/16 12/23/16 12/23/16 05:45 05:45 05:45 WBC 8.9 RBC 3.27 L Hgb 9.1 L Hct 28.1 L MCV 86.0 MCHC 32.5 RDW 16.3 H Plt Count 205 MPV 8.4 Neutrophils % 77.9 Lymphocytes % 8.9 D Monocytes % 8.3 Eosinophils % 3.8 Basophils % 1.1 Sodium 139 Potassium 3.8 Chloride 97 L Carbon Dioxide 29 Anion Gap 13 BUN 23 H D Creatinine 4.2 H D POC Glucometer Random Glucose 215 H D Hemoglobin A1c % Calcium 8.7 Creatine Kinase 60 63 Troponin I 0.05 0.06 H Triglycerides 155 D Cholesterol 116 D Total LDL Cholesterol 57 HDL Cholesterol 43 D 12/23/16 12/23/16 12/24/16 05:45 06:00 05:33 WBC RBC Hgb Hct MCV MCHC RDW Plt Count MPV Neutrophils % Lymphocytes % Monocytes % Eosinophils % Basophils % Sodium Potassium Chloride Carbon Dioxide Anion Gap BUN Creatinine POC Glucometer 245 Random Glucose Hemoglobin A1c % 6.8 H D Calcium Creatine Kinase Cancelled Troponin I Cancelled Triglycerides Cholesterol Total LDL Cholesterol HDL Cholesterol Active Medications Generic Name Dose Route Start Last Admin Trade Name Freq PRN Reason Stop Dose Admin Atorvastatin Calcium 10 mg 12/23/16 22:00 12/23/16 21:07 Lipitor - PO 10 mg HS KARINA Administration Calcium Acetate 667 mg 12/23/16 12:00 12/23/16 17:33 Phoslo - PO 667 mg TIDCM KARINA Administration Labetalol HCl 400 mg 12/23/16 10:00 12/23/16 09:19 Normodyne - PO 400 mg DAILY KARINA Administration Labetalol HCl 200 mg 12/23/16 12:00 12/23/16 12:06 Normodyne - PO 200 mg DAILY@1200 KARINA Administration Labetalol HCl 200 mg 12/23/16 22:00 12/23/16 21:08 Normodyne - PO 200 mg HS KARINA Administration Losartan Potassium 100 mg 12/23/16 10:00 12/23/16 09:18 Cozaar - PO 100 mg DAILY KARINA Administration Nifedipine 60 mg 12/23/16 10:00 12/23/16 21:07 Procardia Xl - PO 60 mg BID KARINA Administration Spironolactone 50 mg 12/23/16 11:30 12/23/16 12:05 Aldactone - PO 50 mg DAILY KARINA Administration Torsemide 80 mg 12/24/16 10:00 Demadex - PO DAILY KARINA ASSESSMENT & PLAN 71 year-old woman with a PMH of HTN, HLD, ESRD on HD (M,W,F), anemia, IDDM, 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 Admitted for hypertensive emergency, chest pain, and dizziness. 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 Diehl for followup Chest pain --troponins negative x 3 --Echo ordered for Sunday --telemetry monitoring Dizziness, resolved IDDM --Hgb A1C 6.8 --Novolog sliding scale coverage h/o DVT --01/10/16 US of RUE: partial thrombosis of the RIJ (improved) and of the distal right cephalic vein --patient has previously refused full anticoagulation; also with h/o GI bleed and with possible malignancy Fluids/Electrolytes/Nutrition Fluids: PO intake adequate Electrolytes: replete as indicated Nutrition: renal diet DVT prophylaxis: SCDs, ambulation; OOB Rehab: PT evaluation; daily PT Dispo: requires continued inpatient care. Full Code. Visit type - Emergency Visit Emergency Visit: Yes ED Registration Date: 12/22/16 Care time: The patient presented to the Emergency Department on the above date and was hospitalized for further evaluation of their emergent condition. - New Patient This patient is new to me today: No - Critical Care Critical Care patient: No
[2016-12-24] MEDS: CALCIUM ACETATE 667 MG CAPSULE (FP) PO SCH ×3 (08:00→17:11)
[2016-12-24 08:57] LABS: ALBUMIN 3.4 g/dl (3.4-5.0); CALCIUM 8.4 mg/dL (8.5-10.1); MAGNESIUM 2.2 mg/dL (1.8-2.4)
[2016-12-24 09:00] LABS: BILIRUBIN,TOTAL 0.6 mg/dL (0.2-1.0); CREATININE 6.2 mg/dL (0.55-1.02); TOT PROT 6.6 g/dl (6.4-8.2)
[2016-12-24] MEDS: SPIRONOLACTONE 25 MG TABLET (FP) PO SCH (09:44)
[2016-12-24] MEDS: TORSEMIDE 20 MG TABLET (FP) PO SCH (09:44)
[2016-12-24] MEDS: LOSARTAN POTASSIUM 50 MG TABLET (FP) PO SCH (09:44)
[2016-12-24] MEDS: LABETALOL HCL 200 MG TABLET (FP) PO SCH ×3 (09:45→21:29)
[2016-12-24] MEDS: NIFEdipine E.R 60 MG TABLET (UD) PO SCH ×2 (09:45→21:28)
[2016-12-24] MEDS: ACETAMINOPHEN 325 MG TABLET (FP) PO PRN (14:25)
--- NOTE | 2016-12-24 16:29 | PN ---
Progress Note (short form) - Note Progress Note: Renal Follow up for ESRD/Hypertension Pt seen and examined at the bedside Vital Signs Temperature 98.3 F 12/24/16 15:21 Pulse Rate 72 12/24/16 15:21 Respiratory Rate 22 12/24/16 15:21 Blood Pressure 139/67 12/24/16 15:21 O2 Sat by Pulse Oximetry (%) 97 12/24/16 09:00 Intake & Output 12/21/16 12/22/16 12/23/16 12/24/16 23:59 23:59 23:59 23:59 Intake Total 420 470 Output Total 2 Balance 420 470 -2 Weight 134 lb 134 lb 6.4 oz 131 lb Gen: NAD, awake and alert CVS: RRR, No M/R Lungs: Dec BS at lung bases Abd: soft NT/ND Ext: No edmea, clubbing or cyanosis Access: Left ARM AVF + thrill and bruit CBC, BMP 12/23/16 05:45 12/24/16 05:45 Current Medications Acetaminophen (Tylenol -) 650 mg PO Q6H PRN PRN Reason: FEVER OR PAIN Last Admin: 12/24/16 14:25 Dose: 650 mg Atorvastatin Calcium (Lipitor -) 10 mg PO HS [facility] Last Admin: 12/23/16 21:07 Dose: 10 mg Calcium Acetate (Phoslo -) 667 mg PO TIDCM [facility] Last Admin: 12/24/16 12:00 Dose: 667 mg Labetalol HCl (Normodyne -) 400 mg PO DAILY [facility] Last Admin: 12/24/16 09:45 Dose: 400 mg Labetalol HCl (Normodyne -) 200 mg PO DAILY@1200 [facility] Last Admin: 12/24/16 12:00 Dose: 200 mg Labetalol HCl (Normodyne -) 200 mg PO HS [facility] Last Admin: 12/23/16 21:08 Dose: 200 mg Losartan Potassium (Cozaar -) 100 mg PO DAILY [facility] Last Admin: 12/24/16 09:44 Dose: 100 mg Nifedipine (Procardia Xl -) 60 mg PO BID [facility] Last Admin: 12/24/16 09:45 Dose: 60 mg Spironolactone (Aldactone -) 50 mg PO DAILY [facility] Last Admin: 12/24/16 09:44 Dose: 50 mg Torsemide (Demadex -) 80 mg PO DAILY [facility] Last Admin: 12/24/16 09:44 Dose: 80 mg A/P 71 year old Woman with PMhx of ESRD on HD (MWF), Difficult to control hypertension, DM, CKD related Anemia who presented with complaints of chest pressure and very elvated BP for 2-> 3 days. #Resistant Hypertension Prior Renin/Adlosterone ratio was elevated but total aldosterone level was low excluding primary hyperaldosteronism Check Renal Artery Doppler today r/o NAZARIO - read pending BP improved on Spironolactone, Toresemide, Procadia, Labetalol continue current meds #ESRD on HD no aucte indication for [employer] today next dialysis tomorrow #CKD Related Anemia did not get CLIFTON because of elevated BP will resume with next HD treatment #DM Hgb A1C is 6.8 Alf Mcmahan DO
[2016-12-24] MEDS: ATORVASTATIN CA 10 MG TABLET (FP) PO SCH (21:28)
[2016-12-25] MEDS ORDERED: EPOETIN ALFA 2,000 UNITS/1 ML VIAL IVPUSH ONE (08:00)
[2016-12-25] MEDS: CALCIUM ACETATE 667 MG CAPSULE (FP) PO SCH ×3 (08:00→17:29)
[2016-12-25] MEDS: SPIRONOLACTONE 25 MG TABLET (FP) PO SCH (09:13)
[2016-12-25] MEDS: LOSARTAN POTASSIUM 50 MG TABLET (FP) PO SCH ×2 (09:14→11:21)
[2016-12-25] MEDS: TORSEMIDE 20 MG TABLET (FP) PO SCH ×2 (09:14→11:20)
[2016-12-25] MEDS: NIFEdipine E.R 60 MG TABLET (UD) PO SCH ×3 (09:15→21:39)
[2016-12-25] MEDS: LABETALOL HCL 200 MG TABLET (FP) PO SCH ×4 (09:15→21:39)
[2016-12-25 11:54] LABS: BASOPHIL 1.1 % (0-2.0); EOSINOPHIL 4.2 % (0-4.5); MCH 27.2 pg (25.7-33.7); MCHC 32.2 g/dl (32.0-36.0); MEAN CELL VOLUME 84.6 fl (80-96); MEAN PLT VOLUME 8.7 fl (7.5-11.1); NEUTROPHILS 76.6 % (42.8-82.8); PLATELET COUNT 213 K/MM3 (134-434); RDW 16.5 % (11.6-15.6); WHITE BLOOD COUNT 7.4 K/mm3 (4.0-10.0)
[2016-12-25 12:00] LABS: ALBUMIN 3.5 g/dl (3.4-5.0); BILIRUBIN,TOTAL 0.6 mg/dL (0.2-1.0); CALCIUM 8.1 mg/dL (8.5-10.1); MAGNESIUM 2.3 mg/dL (1.8-2.4); PHOSPHOROUS 6.9 mg/dL (2.5-4.9); TOT PROT 6.7 g/dl (6.4-8.2)
[2016-12-25 12:13] LABS: CREATININE 8.1 mg/dL (0.55-1.02)
[2016-12-25] MEDS ORDERED: EPOETIN ALFA 10,000 UNIT, EPOETIN ALFA 2,000 UNIT IVPUSH ONE (13:00)
--- NOTE | 2016-12-25 13:47 | PN ---
Progress Note, Physician History of Present Illness: Patient with ESRD admitted with Accelerated Hypertension and Chest pain. Hemodialysis in progress. BP stable about 150/90 mm Hg No chest pain now. Comfortable. - Current Medication List Current Medications: Active Medications Acetaminophen (Tylenol -) 650 mg PO Q6H PRN PRN Reason: FEVER OR PAIN Last Admin: 12/24/16 14:25 Dose: 650 mg Atorvastatin Calcium (Lipitor -) 10 mg PO HS [facility] Last Admin: 12/24/16 21:28 Dose: 10 mg Calcium Acetate (Phoslo -) 667 mg PO TIDCM [facility] Last Admin: 12/25/16 08:00 Dose: 667 mg Labetalol HCl (Normodyne -) 400 mg PO DAILY [facility] Last Admin: 12/25/16 11:21 Dose: 400 mg Labetalol HCl (Normodyne -) 200 mg PO DAILY@1200 [facility] Last Admin: 12/24/16 12:00 Dose: 200 mg Labetalol HCl (Normodyne -) 200 mg PO HS [facility] Last Admin: 12/24/16 21:29 Dose: 200 mg Losartan Potassium (Cozaar -) 100 mg PO DAILY [facility] Last Admin: 12/25/16 11:21 Dose: 100 mg Nifedipine (Procardia Xl -) 60 mg PO BID [facility] Last Admin: 12/25/16 11:20 Dose: 60 mg Spironolactone (Aldactone -) 50 mg PO DAILY [facility] Last Admin: 12/25/16 09:13 Dose: 50 mg Torsemide (Demadex -) 80 mg PO DAILY [facility] Last Admin: 12/25/16 11:20 Dose: 80 mg - Objective Vital Signs: Vital Signs Temperature 98.8 F 12/25/16 11:10 Pulse Rate 67 12/25/16 13:15 Respiratory Rate 18 12/25/16 13:15 Blood Pressure 107/41 12/25/16 13:15 O2 Sat by Pulse Oximetry (%) 98 12/25/16 09:00 Constitutional: Yes: Well Nourished, No Distress Eyes: Yes: WNL HENT: Yes: Normocephalic Neck: Yes: WNL Cardiovascular: Yes: Regular Rate and Rhythm, S1, S2 Respiratory: Yes: CTA Bilaterally Gastrointestinal: Yes: Normal Bowel Sounds Extremities: Yes: WNL Labs: CBC, BMP 12/25/16 11:15 12/25/16 11:15 INR, PTT INR 1.16 (0.82-1.09) H 12/22/16 16:36 Problem List - Problems (1) Hypertensive emergency Code(s): I10 - ESSENTIAL (PRIMARY) HYPERTENSION (2) Shortness of breath Code(s): R06.02 - SHORTNESS OF BREATH (3) ESRD (end stage renal disease) on dialysis Code(s): N18.6 - END STAGE RENAL DISEASE Z99.2 - DEPENDENCE ON RENAL DIALYSIS (4) Anemia Code(s): D64.9 - ANEMIA, UNSPECIFIED Qualifiers: Anemia type: unspecified type Qualified Code(s): D64.9 - Anemia, unspecified (5) Uremia Code(s): N19 - UNSPECIFIED KIDNEY FAILURE (6) Anemia, chronic renal failure Code(s): N18.9 - CHRONIC KIDNEY DISEASE, UNSPECIFIED D63.1 - ANEMIA IN CHRONIC KIDNEY DISEASE (7) Diabetes Code(s): E11.9 - TYPE 2 DIABETES MELLITUS WITHOUT COMPLICATIONS (8) End stage renal disease Code(s): N18.6 - END STAGE RENAL DISEASE (9) Hyperlipidemia Code(s): E78.5 - HYPERLIPIDEMIA, UNSPECIFIED (10) Hypertension Code(s): I10 - ESSENTIAL (PRIMARY) HYPERTENSION Qualifiers: Hypertension type: essential hypertension Qualified Code(s): I10 - Essential (primary) hypertension (11) Hypertensive renal disease Code(s): I12.9 - HYPERTENSIVE CHRONIC KIDNEY DISEASE W STG 1-4/UNSP CHR KDNY (12) Congestive heart failure Code(s): I50.9 - HEART FAILURE, UNSPECIFIED Assessment/Plan 71 Y/o female with ESRD on HD. S/P Accelerated Hypertension. BP in much better range. Anemia of CKD. Did not get Epogen during last HD treatment because of elevated BP. Will give Epogen today. Orders for the dialysis reviewed with the RN. Sobeida Chavez MD
--- NOTE | 2016-12-25 16:36 | PN ---
Physical Exam: SUBJECTIVE: Patient seen and examined at bedside. Had HD today. Feeling well. OBJECTIVE: Vital Signs Period Temp Pulse Resp BP Sys/Parker Pulse Ox Last 24 Hr 97.8 F-98.8 F 65-78 16-20 107-217/41-92 97-98 GENERAL: The patient is awake, alert, and fully oriented, in no acute distress. HEAD: Normal with no signs of trauma. EYES: PERRL, extraocular movements intact, sclera anicteric, conjunctiva clear. No ptosis. LUNGS: Breath sounds equal, clear to auscultation bilaterally, no wheezes, no crackles, no accessory muscle use. HEART: Regular rate and rhythm, S1, S2 without murmur, rub or gallop. ABDOMEN: Soft, nontender, nondistended, normoactive bowel sounds, no guarding, no rebound EXTREMITIES: 2+ pulses, warm, well-perfused, no edema. NEUROLOGICAL: Cranial nerves II through XII grossly intact. Normal speech, gait not observed. Laboratory Results - last 24 hr 12/25/16 12/25/16 11:15 11:15 WBC 7.4 RBC 3.03 L Hgb 8.3 L Hct 25.7 L MCV 84.6 MCHC 32.2 RDW 16.5 H Plt Count 213 MPV 8.7 Neutrophils % 76.6 Lymphocytes % 10.4 Monocytes % 7.7 Eosinophils % 4.2 Basophils % 1.1 Sodium 132 L Potassium 5.1 Chloride 91 L Carbon Dioxide 26 Anion Gap 15 BUN 61 H D Creatinine 8.1 H* D Creat Clearance w eGFR 4.89 Random Glucose 216 H Calcium 8.1 L Phosphorus 6.9 H D Magnesium 2.3 Total Bilirubin 0.6 AST 11 L D ALT 17 D Alkaline Phosphatase 116 Total Protein 6.7 Albumin 3.5 Active Medications Generic Name Dose Route Start Last Admin Trade Name Freq PRN Reason Stop Dose Admin Acetaminophen 650 mg 12/24/16 14:07 12/24/16 14:25 Tylenol - PO 650 mg Q6H PRN Administration FEVER OR PAIN Atorvastatin Calcium 10 mg 12/23/16 22:00 12/24/16 21:28 Lipitor - PO 10 mg HS [facility] Administration Calcium Acetate 667 mg 12/23/16 12:00 12/25/16 13:47 Phoslo - PO Not Given TIDCM [facility] Labetalol HCl 400 mg 12/23/16 10:00 12/25/16 11:21 Normodyne - PO 400 mg DAILY [facility] Administration Labetalol HCl 200 mg 12/23/16 12:00 12/25/16 13:47 Normodyne - PO Not Given DAILY@1200 [facility] Labetalol HCl 200 mg 12/23/16 22:00 12/24/16 21:29 Normodyne - PO 200 mg HS [facility] Administration Losartan Potassium 100 mg 12/23/16 10:00 12/25/16 11:21 Cozaar - PO 100 mg DAILY [facility] Administration Nifedipine 60 mg 12/23/16 10:00 12/25/16 11:20 Procardia Xl - PO 60 mg BID [facility] Administration Spironolactone 50 mg 12/23/16 11:30 12/25/16 09:13 Aldactone - PO 50 mg DAILY [facility] Administration Torsemide 80 mg 12/24/16 10:00 12/25/16 11:20 Demadex - PO 80 mg DAILY [facility] Administration ASSESSMENT & PLAN 71 year-old woman with a PMH of HTN, HLD, ESRD on HD (M,W,F), anemia, IDDM, 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 Admitted for hypertensive emergency, chest pain, and dizziness. 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 Diehl for followup Chest pain --ACS ruled out: troponins negative x 3 Severe pulmonary hypertension --12/25 echo: mild cLVH; LV normal; RV normal; LAE; mild to moderate MR; mild TR; severe pHTN; mild AI; mild PI Dizziness, resolved IDDM --Hgb A1C 6.8 --Novolog sliding scale coverage h/o DVT --01/10/16 US of RUE: partial thrombosis of the RIJ (improved) and of the distal right cephalic vein --patient has previously refused full anticoagulation; also with h/o GI bleed and with possible malignancy Fluids/Electrolytes/Nutrition Fluids: PO intake adequate Electrolytes: replete as indicated Nutrition: renal diet DVT prophylaxis: SCDs, ambulation; OOB Rehab: PT evaluation; daily PT Dispo: requires continued inpatient care. Full Code. Visit type - Emergency Visit Emergency Visit: Yes ED Registration Date: 12/22/16 Care time: The patient presented to the Emergency Department on the above date and was hospitalized for further evaluation of their emergent condition. - New Patient This patient is new to me today: No - Critical Care Critical Care patient: No
[2016-12-25] MEDS: ACETAMINOPHEN 325 MG TABLET (FP) PO PRN (17:31)
[2016-12-25] MEDS: ATORVASTATIN CA 10 MG TABLET (FP) PO SCH (21:39)
--- NOTE | 2016-12-25 23:35 | HOSP ---
[id number] that the patient began having epistaxis 30 min ago, pressure and ice applied- unresolved. Patient received HD today Arrived to bedside, patient is alert, awake and oriented, removed gauze from right nare, small clot noted, no active bleed. Will continue nasal packing, with ice packs until subsides. Will continue to monitor vitals Consider ENT if bleed continues HEENT: Yes: Other (epistaxis) Physical Examination Vital Signs: Vital Signs Temperature 97.6 F 12/25/16 18:00 Pulse Rate 72 12/25/16 18:00 Respiratory Rate 18 12/25/16 18:00 Blood Pressure 157/58 12/25/16 18:00 O2 Sat by Pulse Oximetry (%) 98 12/25/16 09:00 HENT: Yes: Epistaxis (bleeding controlled) Cardiovascular: Yes: WNL, Regular Rate and Rhythm, S1, S2 Respiratory: Yes: WNL, Regular, CTA Bilaterally Gastrointestinal: Yes: WNL, Normal Bowel Sounds, Soft Extremities: Yes: Other (left arm AV- Fistula, bruit/thrill present) Neurological: Yes: WNL, Alert, Oriented Psychiatric: Yes: WNL, Alert, Oriented Labs: CBC, BMP 12/25/16 11:15 12/25/16 11:15
[2016-12-26] MEDS: CALCIUM ACETATE 667 MG CAPSULE (FP) PO SCH ×2 (08:49→11:22)
[2016-12-26] MEDS: LABETALOL HCL 200 MG TABLET (FP) PO SCH ×2 (09:21→11:22)
[2016-12-26] MEDS: TORSEMIDE 20 MG TABLET (FP) PO SCH (09:21)
[2016-12-26] MEDS: NIFEdipine E.R 60 MG TABLET (UD) PO SCH (09:21)
[2016-12-26] MEDS: SPIRONOLACTONE 25 MG TABLET (FP) PO SCH (09:21)
[2016-12-26] MEDS: LOSARTAN POTASSIUM 50 MG TABLET (FP) PO SCH (09:22)
[2016-12-26 10:32] VITALS: PULSE 70; TEMP 98
--- NOTE | 2016-12-26 10:39 | DS ---
Physical Exam: SUBJECTIVE: Patient seen and examined OBJECTIVE: Vital Signs Period Temp Pulse Resp BP Sys/Parker Pulse Ox Last 24 Hr 97.5 F-98.8 F 65-88 18-19 107-219/41-95 96-98 PHYSICAL EXAM GENERAL: The patient is awake, alert, and fully oriented, in no acute distress. HEAD: Normal with no signs of trauma. EYES: PERRL, extraocular movements intact, sclera anicteric, conjunctiva clear. ENT: Ears normal, nares patent, oropharynx clear without exudates, moist mucous membranes. NECK: Trachea midline, full range of motion, supple. LUNGS: Breath sounds equal, clear to auscultation bilaterally, no wheezes, no crackles, no accessory muscle use. HEART: Regular rate and rhythm, S1, S2 without murmur, rub or gallop. ABDOMEN: Soft, nontender, nondistended, normoactive bowel sounds, no guarding, no rebound, no hepatosplenomegaly, no masses. EXTREMITIES: 2+ pulses, warm, well-perfused, no edema. NEUROLOGICAL: Cranial nerves II through XII grossly intact. Normal speech, gait not observed. PSYCH: Normal mood, normal affect. SKIN: Warm, dry, normal turgor, no rashes or lesions noted. LABS Laboratory Results - last 24 hr 12/22/16 12/25/16 12/25/16 21:15 11:15 11:15 WBC 7.4 RBC 3.03 L Hgb 8.3 L Hct 25.7 L MCV 84.6 MCHC 32.2 RDW 16.5 H Plt Count 213 MPV 8.7 Neutrophils % 76.6 Lymphocytes % 10.4 Monocytes % 7.7 Eosinophils % 4.2 Basophils % 1.1 Sodium 132 L Potassium 5.1 Chloride 91 L Carbon Dioxide 26 Anion Gap 15 BUN 61 H D Creatinine 8.1 H* D Creat Clearance w eGFR 4.89 Random Glucose 216 H Calcium 8.1 L Phosphorus 6.9 H D Magnesium 2.3 Total Bilirubin 0.6 AST 11 L D ALT 17 D Alkaline Phosphatase 116 Total Protein 6.7 Albumin 3.5 Hepatitis C Antibody 0.1 HCV Quantitation Cancelled HCV RNA log copies/mL Cancelled HOSPITAL COURSE: Date of Admission:12/22/16 Date of Discharge: 12/26/16 Minutes to complete discharge: 35 Discharge Summary Reason For Visit: HYPERTENSIVE RENAL DISEASE Current Active Problems DVT prophylaxis (Acute) Hypertensive emergency (Acute) Shortness of breath (Acute) ESRD (end stage renal disease) on dialysis (Chronic) Condition: Improved - Instructions Diet, Activity, Other Instructions: You should resume your normal hemodialysis schedule. Return to the emergency department for any new or worsening symptoms. Referrals: Alf Mcmahan MD [Staff Physician] - Disposition: HOME - Home Medications Comprehensive Discharge Medication List: Ambulatory Orders Calcium Acetate [Phoslo -] 667 mg PO TIDCM 04/17/16 Losartan Potassium [Cozaar] 100 mg PO DAILY 04/17/16 Nifedipine ER [Procardia XL -] 60 mg PO BID 04/17/16 Pravastatin Sodium [Pravachol -] 20 mg PO HS 04/17/16 Atorvastatin Ca [Lipitor] 10 mg PO HS tablet 12/26/16 Labetalol HCl [Normodyne -] 200 mg PO DAILY@1200 #30 tablet 12/26/16 Labetalol HCl [Normodyne -] 200 mg PO HS #30 tablet 12/26/16 Labetalol HCl [Normodyne -] 400 mg PO DAILY #30 tablet 12/26/16 Spironolactone [Aldactone -] 50 mg PO DAILY #30 tablet 12/26/16 Torsemide [Demadex -] 80 mg PO DAILY #30 tablet 12/26/16 This patient is new to me today: No Emergency Visit: Yes ED Registration Date: 12/22/16 Care time: The patient presented to the Emergency Department on the above date and was hospitalized for further evaluation of their emergent condition. Critical Care patient: No - Discharge Referral Referred to [facility] Med P.C.: No
[2016-12-26 12:11] VITALS: BP 160/70
--- NOTE | 2016-12-26 18:32 | PN ---
Progress Note (short form) - Note Progress Note: Renal Follow up for ESRD/Hypertension Pt seen and examined at the bedside reports have some blood from her nose yesterday but none today no sob, chest pain has some abd discomfort no N/V/D s/p dialysis yesterday Vital Signs Temperature 98 F 12/26/16 10:00 Pulse Rate 70 12/26/16 10:00 Respiratory Rate 18 12/26/16 10:00 Blood Pressure 160/70 12/26/16 11:20 O2 Sat by Pulse Oximetry (%) 97 12/26/16 09:00 Intake & Output 12/23/16 12/24/16 12/25/16 12/26/16 23:59 23:59 23:59 23:59 Intake Total 470 550 500 Output Total 2 0 0 Balance 470 -2 550 500 Weight 134 lb 6.4 oz 131 lb 135 lb 12.8 oz 137 lb Gen: NAD, awake and alert CVS: RRR, No M/R Lungs: Dec BS at lung bases Abd: soft NT/ND Ext: No edmea, clubbing or cyanosis Access: Left ARM AVF + thrill and bruit A/P 71 year old Woman with PMhx of ESRD on HD (MWF), Difficult to control hypertension, DM, CKD related Anemia who presented with complaints of chest pressure and very elvated BP for 2-> 3 days. #Resistant Hypertension Prior Renin/Adlosterone ratio was elevated but total aldosterone level was low excluding primary hyperaldosteronism Renal Artery Doppler showed no significant stenosis BP improved on Spironolactone, Toresemide, Procadia, Labetalol continue current meds on discharge #ESRD on HD s/p dialysis yesterday next HD tomorrow as outpatient Alf Mcmahan DO
[2016-12-27 00:09] LABS: HEP B SURFACE AB Non Reactive (.)
== END 2016-12-26 13:11 | disposition home or self-care (01) | DRG 199 ==
LOC: JER 15:38 → JERBED 19:13 → J4W 20:11
PROVIDERS: ADMIT Internal Medicine; ATTEND Nurse Practitioner Acute Care
PROC: 5A1D60Z (ICD-10-PCS; principal; 2016-12-22)
DX: I16.1 Hypertensive emergency (principal); I12.0 Hypertensive chronic kidney disease with stage 5 chronic kidney disease or end stage renal disease; N18.6 End stage renal disease; Z99.2 Dependence on renal dialysis; E11.9 Type 2 diabetes mellitus without complications; E78.5 Hyperlipidemia, unspecified; D63.1 Anemia in chronic kidney disease; D49.0 Neoplasm of unspecified behavior of digestive system; R42 Dizziness and giddiness; I27.2 Other secondary pulmonary hypertension; Z79.4 Long term (current) use of insulin; Z86.718 Personal history of other venous thrombosis and embolism
CPT/HCPCS: 36415; 71010-TC; 80048; 80053; 80061; 82550; 83036; 83721; 83735; 83880; 84100; 84484; 85025; 85610; 85730; 86704; 86706; 86708; 87340; 93005; 93010; 93306-TC; 93976; 99285-25; J0885

== ENCOUNTER 2017-01-08 07:02 | Inpatient (IN) | payer OTHER ==
[2017-01-08] MEDS ORDERED: FUROSEMIDE 40 MG/4 ML INJECTABLE VIAL ONE ×2 (07:05)
[2017-01-08] MEDS ORDERED: NITROGLYCERIN 25MG/D5W 250ML 250 ML IVPB ONE ×2 (07:05→11:44)
--- NOTE | 2017-01-08 07:18 | PDOC ---
History of Present Illness - General Chief Complaint: Shortness of Breath Stated Complaint: DIFFICULTY BREATHING Time Seen by Provider: 01/08/17 07:07 History Source: Patient Exam Limitations: Language Barrier (Estonian speaking) - History of Present Illness Initial Comments: 01/08/17 07:02 CHIEF COMPLAINT: Shortness of breath and cough PCP: Dr. Aubrey Rogers HISTORY OF PRESENT ILLNESS: Patient is a 71-year-old vietnamese speaking female was brought in to the ED via EMS after she had shortness of breath and diffuse chest pain. A/c to the EMS, they found the patient to be in SOB with a saturation of 80% on RA; Rales on ausculatation, BP-264/114mmHg, P-86 bpm. Patient was put on a BiPAP, End tidal Co2 35, Nitropaste was given and was brought in the ED. On arrival in the ED, patients BP was 239/114mmHg with saturation of 85%, patient had shortness of breath and on ausculation B/L bibasilar crackles. She was given IV Lasix 80mg stat with IV Nitroglycerine drip started. Patient felt a little better after the treatment. As per the patient, she had cough with productive yellowish sputum since a week. Had shortness of breath since yesterday even at rest. Complaints of diffuse chest pain, radiating towards the back, pain increases when SOB increases, sharp in quality, 7/10 in intensity, non positional, non reproducible. Bowel movement normal. Appetite decreased Sleep disturbed. Recent Travel: None PAST MEDICAL HISTORY: ESRD (MWF); Hypertension, Diabetes Mellitus, Anemia, Osteoarthritis, Ampullary mass diagnosed in Nov, 2016. PAST SURGICAL HISTORY: As mentioned above Hospitalization: 12/22/2016 admitted for Hypertensive Emergency and discharged on 12/26/2016 Social History: Smoking: Denies Alcohol: Denies Drugs: Denies Family History: Allergies: NKDA Past History - Past Medical History Allergies/Adverse Reactions: Allergies Allergy/AdvReac Type Severity Reaction Status Date / Time No Known Allergies Allergy Verified 01/08/17 08:00 Home Medications: Ambulatory Orders Calcium Acetate [Phoslo -] 667 mg PO TID 01/08/17 Labetalol HCl [Normodyne -] 200 mg PO TID 01/08/17 Losartan Potassium 100 mg PO DAILY 01/08/17 Nifedipine ER [Procardia Xl -] 60 mg PO BID 01/08/17 Pravastatin Sodium 20 mg PO DAILY 01/08/17 Spironolactone 50 mg PO DAILY 01/08/17 Torsemide 40 mg PO DAILY 01/08/17 Anemia: Yes Asthma: No Cancer: No Cardiac Disorders: No CVA: No COPD: No CHF: Yes Dementia: No Diabetes: Yes Dialysis: Yes GI Disorders: No Disorders: Yes (esrd, dialysis) HTN: Yes Hypercholesterolemia: Yes Liver Disease: Yes Seizures: No Thyroid Disease: No - Surgical History Abdominal Surgery: Yes Appendectomy: No Cardiac Surgery: No Cholecystectomy: No Lung Surgery: No Neurologic Surgery: No Orthopedic Surgery: No - Immunization History Immunization Up to Date: Yes - Psycho/Social/Smoking Cessation Hx Anxiety: No Suicidal Ideation: No Smoking History: Never smoked Have you smoked in the past 12 months: No Number of Cigarettes Smoked Daily: 0 Hx Alcohol Use: No Drug/Substance Use Hx: No Substance Use Type: None Hx Substance Use Treatment: No Review of Systems - Review of Systems Comments:: 01/08/17 08:02 CONSTITUTIONAL:~ Absent: fever, chills, diaphoresis, generalized weakness, malaise, loss of appetite HEENT:~ Absent: rhinorrhea, nasal congestion, throat pain, throat swelling, difficulty swallowing, mouth swelling, ear pain, eye pain, visual Changes CARDIOVASCULAR: Present: chest pain Absent: , syncope, palpitations, irregular heart rate, lightheadedness, peripheral edema RESPIRATORY: Present: cough, shortness of breath, dyspnea with exertion, orthopnea, Absent: wheezing, stridor, hemoptysis GASTROINTESTINAL: Absent: abdominal pain, abdominal distension, nausea, vomiting, diarrhea, constipation, melena, hematochezia GENITOURINARY:~ Absent: dysuria, frequency, urgency, hesitancy, hematuria, flank pain, genital pain MUSCULOSKELETAL:~ Absent: myalgia, arthralgia, joint swelling SKIN:~ Absent: rash, itching, pallor HEMATOLOGIC/IMMUNOLOGIC:~ Absent: easy bleeding, easy bruising, lymphadenopathy, frequent infections ENDOCRINE: Absent: unexplained weight gain, unexplained weight loss, heat intolerance, cold intolerance NEUROLOGIC:~ Absent: headache, focal weakness or paresthesias, dizziness, unsteady gait, seizure, mental status changes, bladder or bowel incontinence PSYCHIATRIC:~ Absent: anxiety, depression, suicidal or homicidal ideation, hallucinations. *Physical Exam - Physical Exam Comments: 01/08/17 08:03 PE: GENERAL: Awake, alert, and fully oriented, in no acute distress HEAD: No signs of trauma EYES: Mild pallor+,PERRLA, EOMI, sclera anicteric, conjunctiva clear ENT: Auricles normal inspection, hearing grossly normal, nares patent, oropharynx clear without exudates. Moist mucosa NECK: Normal ROM, supple, no lymphadenopathy, JVD, or masses LUNGS: Breath sounds equal, Bilateral basilar crackles, no wheeze. HEART: Regular rate and rhythm, normal S1 and S2, no murmurs, rubs or gallops ABDOMEN: Soft, nontender, normoactive bowel sounds. No guarding, no rebound. No masses EXTREMITIES: Normal range of motion, no edema. No clubbing or cyanosis. No cords, erythema, or tenderness NEUROLOGICAL: Cranial nerves II through XII grossly intact. Normal speech, normal gait SKIN: Warm, Dry, normal turgor, no rashes or lesions noted. ED Treatment Course - LABORATORY CBC & Chemistry Diagram: 01/08/17 08:10 01/08/17 08:10 Medical Decision Making - Medical Decision Making 01/08/17 07:02 Patient seen and examined at bed side. EMS had just brought her in. On arrival BP was 211/93 mmHg, P-79; Spo2-92 % on Bipap. 80mg of Lasix stat was given and Nitroglycerine drip was started @ 80mcg/hr. Will order routine labs, cardiac troponins, BNP, EKG, CXR Differential Diagnosis: CKD with fluid overload, Acute decompensated heart failure. 01/08/17 07:20 Patient reassessed. Looks better, patient mentions breathing has been improving. 01/08/17 07/40 Patient reassessed. Feels the same. BP decreased to 185/89mmHg 01/08/17 8:00 Patient reassessed. Labs noted, leukocytosis of 15.8; creatinine 7.5; K-6.0, BNP -647713.30 Baseline creatinine (1.1) Oct, 2014 01/08/17 09:15 Clinical Impression: CKD with fluid overload, requires dialysis. Hyperkalemia: 6.0, no EKG changes. No treatment given now as patient is going for Emergent dialysis Leukocytosis:15.8, most likely reactive vs infection. Chest x-ray showed no infiltrate. Patient feels a little better, Blood pressure improving Needs ICU admission with Dialysis Spoke with Dr. Nayak for ICU admission, he agrees to the plan Spoke with Dr. Bills @ 10:48am and as per her recommendations, will order IV Ceftriaxone 1gm, Urine culture, Blood culture and consult with Dr. Maria. Illness, Investigation and PLan of care explained to the patient by sales and marketing representative. She verbalized understanding. Case seen and discussed with Dr. Sandy. *DC/Admit/Observation/Transfer Diagnosis at time of Disposition: Hypertensive renal disease, Anemia, chronic renal failure, Hypertensive emergency, ESRD (end stage renal disease) on dialysis - Discharge Dispostion Admit: Yes
[2017-01-08] MEDS: NITROGLYCERIN 25MG/D5W 250ML 250 ML IVPB SCH ×2 (07:30→07:56)
[2017-01-08 07:40] VITALS: BMI 29.8
[2017-01-08] MEDS ORDERED: FUROSEMIDE 40 MG/4 ML INJECTABLE VIAL IVPB ONE (08:12)
--- NOTE | 2017-01-08 08:13 | PDOC ---
Attending Attestation - Resident Resident Name: Danielle Conti - ED Attending Attestation I have performed the following: I have examined & evaluated the patient, The case was reviewed & discussed with the resident, I agree w/resident's findings & plan, Exceptions are as noted - HPI HPI: 01/08/17 08:11 Agree with the resident's HPI as documented in the electronic medical record. - Physicial Exam PE: 01/08/17 08:11 Agree with the resident's physical examination as documented in the electronic medical record. - Medical Decision Making 01/08/17 08:11 71-year-old female with history of hypertension, end-stage renal disease on hemodialysis Sunday who presents the emergency department with acute onset shortness of breath, chest pain and hypertension this morning; the patient was started on BiPAP in the field by EMS. Differential diagnosis includes but is not limited to: Acute decompensated heart failure, fluid overload secondary to end-stage renal disease, ACS, pneumonia, hypertensive emergency, electrolyte abnormality, toxic/metabolic derangement. Plan: 1. Continue BiPAP 2. Nitro drip 3. Lasix 4. Emergent dialysis 5. Chest x-ray 6. Observe and reevaluate
[2017-01-08 08:23] LABS: BASOPHIL 0.7 % (0-2.0); EOSINOPHIL 3.3 % (0-4.5); MCH 27.2 pg (25.7-33.7); MCHC 31.1 g/dl (32.0-36.0); MEAN CELL VOLUME 87.2 fl (80-96); PLATELET COUNT 171 K/MM3 (134-434); RDW 19.3 % (11.6-15.6); WHITE BLOOD COUNT 15.8 K/mm3 (4.0-10.0)
[2017-01-08 08:46] LABS: ALBUMIN 4.2 g/dl (3.4-5.0); BILIRUBIN,TOTAL 0.7 mg/dL (0.2-1.0)
[2017-01-08 09:02] LABS: CREATININE 7.5 mg/dL (0.55-1.02)
[2017-01-08 09:07] LABS: TROPONIN I 0.05 ng/ml (0.00-0.05)
[2017-01-08] MEDS ORDERED: CEFTRIAXONE 1 GM in DEXTROSE 5%-WATER - 50 ML IVPB ONE (10:55)
--- NOTE | 2017-01-08 10:56 | CONSULT ---
Consult - text type - Consultation Consultation Note: Renal Consult for ESRD and difficult to control hypertension This is a 71 year old Woman with PMhx of ESRD on HD (MWF), Difficult to control hypertension, DM, CKD related Anemia who presented with complaints of chest pressure and SOB that started last night. Pt s/p recent admission for similar symptoms. Pt last had dialysis on Sunday, BP was noted to be in the 180's systolic but no signs of volume overload and pt finished the treatment below her dry weight. Pt denies any dietary indiscretion or excess salt or water intake. No N/V. + ZENDEJAS. No fever or chills. No NSAID use. In the ED pt started on Nitro gtt for BP control. Pt also started on BIPAP. PMhx: as above Allergies: NKDA Family hx: NC Social hx: No T/A/D ROS: as per HPI, all other pertinent ros negative Home Meds: Home Medications Medication Instructions Recorded Calcium Acetate [Phoslo -] 667 mg PO TID 01/08/17 Labetalol HCl [Normodyne -] 200 mg PO TID 01/08/17 Losartan Potassium 100 mg PO DAILY 01/08/17 Nifedipine ER [Procardia Xl -] 60 mg PO BID 01/08/17 Pravastatin Sodium 20 mg PO DAILY 01/08/17 Spironolactone 50 mg PO DAILY 01/08/17 Torsemide 40 mg PO DAILY 01/08/17 Vital Signs Temperature 97.7 F 01/08/17 07:47 Pulse Rate 62 01/08/17 10:02 Respiratory Rate 22 01/08/17 10:02 Blood Pressure 181/100 01/08/17 10:02 O2 Sat by Pulse Oximetry (%) 97 01/08/17 10:02 Intake & Output 01/05/17 01/06/17 01/07/17 01/08/17 23:59 23:59 23:59 23:59 Weight 163 lb Gen: NAD, awake and alert HEENT: NC/AT, No JVD, Neck Supple CVS: RRR, No M/R Lungs: + rales b/l lung french Abd: soft NT/ND Ext: No edmea, clubbing or cyanosis Access: Left ARM AVF + thrill and bruit Neuro: AAOX3, no focal defects CBC, BMP 01/08/17 08:10 01/08/17 08:10 Laboratory Tests 01/08/17 01/08/17 01/08/17 08:10 08:10 08:10 Neutrophils % 87.0 H AST 13 L ALT 16 Alkaline Phosphatase 171 H D Creatine Kinase 96 Troponin I 0.05 Albumin 4.2 Current Medications Nitroglycerin/Dextrose (Nitroglycerin 25mg/D5w 250ml) 250 mls @ 48 mls/hr IVPB TITR [facility] PRN Reason: 80 MCG/MIN Last Titration: 01/08/17 09:52 Dose: 90 mcg/min A/P 71 year old Woman with PMhx of ESRD on HD (MW), Difficult to control hypertension, DM, CKD related Anemia who presented with complaints of chest pressure and SOB that started last night. #Fluid overload in ESRD For urgent HD today with goal UF of 3-3.5L as tolerated Continue nitro gtt as per ICU Low salt diet, Fluid restriction of 1.2L daily Will plan for additional UF as needed to achieve euvolemia Cardiology Eval #Hypertensive Emergency/Urgency Continue Losartan, Aldactone, Labetalol, Nifedpine if BP still not controlled may need to consider central acting alpha sreekanth #Hyperkalemia EKG without changes Plan for HD today with low k bath #Leukocytoiss No fever recorded in the ED Will check blood culture with HD Thank you Will follow Alf Mcmahan DO
--- NOTE | 2017-01-08 11:15 | EKG ---
Test Reason : Blood Pressure : / mmHG Vent. Rate : 081 BPM Atrial Rate : 081 BPM P-R Int : 212 ms QRS Dur : 114 ms QT Int : 412 ms P-R-T Axes : 057 -32 060 degrees QTc Int : 478 ms SINUS RHYTHM WITH 1ST DEGREE A-V BLOCK POSSIBLE LEFT ATRIAL ENLARGEMENT LEFT AXIS DEVIATION INCOMPLETE RIGHT BUNDLE BRANCH BLOCK ABNORMAL ECG WHEN COMPARED WITH ECG OF 22-DEC-2016 16:00, COMPARED TO EKG NO SIGNIFICANT CHANGE IS FOUND Confirmed by STEFANY JIMÉNEZ MD ([id number]) on 01/08/2017 11:15:17 AM Referred By: Confirmed By:STEFANY JIMÉNEZ MD
[2017-01-08] MEDS ORDERED: CEFTRIAXONE 100 ML IVPB ONE (11:33)
--- NOTE | 2017-01-08 11:36 | CON.CARD ---
Consult Consult Specialty:: Cardiology Referred by:: Hospitalist Medicine Reason for Consultation:: Diastolic failure - History of Present Illness Chief Complaint: Dyspnea, chest pain History of Present Illness: 71 year old Woman with PMhx of ESRD on HD (MWF), labile hypertension, DM, CKD related anemia, diastolic failure who presented with complaints of chest pressure, dyspnea and elevated BP similar to previous admission in December. Pt reports compliance with meds and diet. Denies any extra salt intake. Denies any NSAID use. Has been compliant with all her dialysis treatments. In the ED pt started on Nitro gtt for BP control. Pt also started on BIPAP. - History Source History Provided By: Patient Limitations to Obtaining History: No Limitations - Past Medical History Cardio/Vascular: Yes: CHF, HTN, Hyperlipdemia Renal/: Yes: Renal Failure, Hemodialysis Musculoskeletal: Yes: Chronic low back pain Endocrine: Yes: Diabetes Mellitus - Past Surgical History Past Surgical History: Yes: AV Fistula/Graft - Alcohol/Substance Use Hx Alcohol Use: No - Smoking History Smoking history: Never smoked Have you smoked in the past 12 months: No Aproximately how many cigarettes per day: 0 - Social History ADL: Independent History of Recent Travel: No Home Medications - Allergies Allergies/Adverse Reactions: Allergies Allergy/AdvReac Type Severity Reaction Status Date / Time No Known Allergies Allergy Verified 01/08/17 08:00 - Home Medications Home Medications: Ambulatory Orders Calcium Acetate [Phoslo -] 667 mg PO TID 01/08/17 Labetalol HCl [Normodyne -] 200 mg PO TID 01/08/17 Losartan Potassium 100 mg PO DAILY 01/08/17 Nifedipine ER [Procardia Xl -] 60 mg PO BID 01/08/17 Pravastatin Sodium 20 mg PO DAILY 01/08/17 Spironolactone 50 mg PO DAILY 01/08/17 Torsemide 40 mg PO DAILY 01/08/17 Review of Systems - Review of Systems Cardiovascular: reports: Chest Pain, Shortness of Breath Respiratory: reports: SOB Vital Signs: Vital Signs Temperature 97.7 F 01/08/17 07:47 Pulse Rate 60 01/08/17 11:18 Respiratory Rate 20 01/08/17 11:18 Blood Pressure 206/83 01/08/17 11:18 O2 Sat by Pulse Oximetry (%) 98 01/08/17 11:18 Constitutional: Yes: No Distress, Calm Respiratory: Yes: Regular, On BiPap, Rales Gastrointestinal: Yes: Normal Bowel Sounds, Soft, Abdomen, Obese Cardiovascular: Yes: Regular Rate and Rhythm JVD: No Carotid Bruit: No Heart Sounds: Yes: S1, S2 Murmur: Yes: Systolic Murmur, Grade 1 Edema: No - Other Data NSR @ 81 1st deg AVB, LAD, IRBBB Echo: Report Reviewed Ejection Fraction %: LVEF > or = 40 % Imaging - Results Chest X-ray: Report Reviewed (CHF) Problem List - Problems (1) Hypertensive emergency Code(s): I10 - ESSENTIAL (PRIMARY) HYPERTENSION (2) ESRD (end stage renal disease) on dialysis Code(s): N18.6 - END STAGE RENAL DISEASE Z99.2 - DEPENDENCE ON RENAL DIALYSIS (3) Hypertensive renal disease Code(s): I12.9 - HYPERTENSIVE CHRONIC KIDNEY DISEASE W STG 1-4/UNSP CHR KDNY (4) End stage renal disease Code(s): N18.6 - END STAGE RENAL DISEASE (5) Hyperlipidemia Code(s): E78.5 - HYPERLIPIDEMIA, UNSPECIFIED Qualifiers: Hyperlipidemia type: pure hypercholesterolemia Qualified Code(s): E78.0 - Pure hypercholesterolemia (6) Acute on chronic diastolic (congestive) heart failure Code(s): I50.33 - ACUTE ON CHRONIC DIASTOLIC (CONGESTIVE) HEART FAILURE Assessment/Plan 12/25/2016 Echo: Normal LV size with mild cLVH, normal LV fxn, mod LAE, mild-mod MR, mild TR, RVSP 50-60 mmHg, mild AR, [place] 12/24/2016 Renovascular U/S-No sig renal artery stenosis 1. Acute on chronic diastolic failure in context of 2. Hypertensive urgency 3. ESRD on HD with hyperkalemia 4. Hyperlipidemia P:1. Wean NTG gtt as hemodynamics tolerate 2. Ultrafiltration via HD per renal, wean FIO2 as tolerated, Bipap as needed 3. Continue Pravachol 20 qhs, Procardia 60 XL bid, Demadex 40 qd, and labetolol 200 tid with uptitration as tolerated. Continuing losartan 100 qd and Aldactone 50 qd cautiously given hyperkalemia, may require catapres for further BP control. 4. Thank you for consultative opportunity
[2017-01-08] MEDS: TORSEMIDE 20 MG TABLET (FP) PO SCH (12:09)
[2017-01-08] MEDS: NIFEdipine E.R 60 MG TABLET (UD) PO SCH ×3 (12:11→21:51)
[2017-01-08] MEDS ORDERED: CEFTRIAXONE 50 ML IVPB ONE (13:00)
[2017-01-08] MEDS: LABETALOL HCL 200 MG TABLET (FP) PO SCH ×3 (14:35→21:50)
[2017-01-08] MEDS: LOSARTAN POTASSIUM 50 MG TABLET (FP) PO SCH (14:35)
--- NOTE | 2017-01-08 14:43 | PN ---
Teaching Attending Note Name of Resident: Jarrell Salmeron ATTENDING PHYSICIAN STATEMENT I saw and evaluated the patient. I reviewed the resident's note and discussed the case with the resident. I agree with the resident's findings and plan as documented. SUBJECTIVE: Pt seen and examined in the ICU. Briefly, 71yo female with h/o HTN, DM, ESRD on HD who presents with worsening shortness of breath and chest pressure. Noted to be extremely hypertensive with 265/105, placed on BiPAP and nitro gtt and scheduled for emergent HD. Pt states compliance with HD sessions, medications and diet. OBJECTIVE: Last Vital Signs Temp Pulse Resp BP Pulse Ox 99.2 F 66 20 228/88 100 01/08/17 12:00 01/08/17 12:30 01/08/17 12:30 01/08/17 12:30 01/08/17 13:40 Intake & Output 01/05/17 01/06/17 01/07/17 01/08/17 23:59 23:59 23:59 23:59 Weight 163 lb 0.016 oz Gen: mildly tachypneic on BiPAP Heart: RRR Lung: bibasilar rales Abd: soft, nontender Ext: no edema CBC, BMP 01/08/17 08:10 01/08/17 08:10 Active Medications Nitroglycerin/Dextrose (Nitroglycerin 25mg/D5w 250ml) 250 mls @ 48 mls/hr IVPB TITR [facility] PRN Reason: 80 MCG/MIN Last Titration: 01/08/17 14:18 Dose: 0 mcg/min Labetalol HCl (Normodyne -) 200 mg PO TID [facility] Last Admin: 01/08/17 14:35 Dose: Not Given Losartan Potassium (Cozaar -) 100 mg PO DAILY [facility] Last Admin: 01/08/17 14:35 Dose: Not Given Nifedipine (Procardia Xl -) 60 mg PO BID [facility] Last Admin: 01/08/17 12:11 Dose: 60 mg Spironolactone (Aldactone -) 50 mg PO DAILY [facility] Torsemide (Demadex -) 40 mg PO DAILY [facility] Last Admin: 01/08/17 12:09 Dose: 40 mg ASSESSMENT AND PLAN: Hypertensive Urgency Acute on Chronic Diastolic Heart Failure Pulmonary HTN Pleural Effusions ESRD on HD Hyperkalemia Acute Respiratory Distress requiring NIPPV - HD per renal with ultrafiltration - BP control with PO meds - taper off nitro gtt - nitrates as needed - BiPAP to assist in work of breathing - O2 to keep SpO2 >90% - monitor lytes - DVT prophylaxis - ICU monitoring for now
--- NOTE | 2017-01-08 15:06 | CONSULT ---
Consultation: HISTORY OF PRESENT ILLNESS: 71 year old female with significant PMH of ESRD (Dialysis MWF), HTN, DM, Anemia presented to ED via EMS this AM for chest pain & hypoxia. Patient states she has had SOB & chest pain since this AM. Called EMS and was found to have BP of 240/115. Oxgen saturation found to be ~80%. Bipap was started en route to ED by EMS. In ED, Patient was found to have Potassium 6.0, creatinine 7.5, BP 239/114 , BNP 146k. Admitted for Acute on chronic renal failure, with fluid overload. Given Lasix for diuresis & nitro drip started for hypertensive emergency. Sent to ICU for emergent dialysis. REVIEW OF SYSTEMS: CONSTITUTIONAL: Absent: fever, chills, diaphoresis, generalized weakness, malaise, loss of appetite, weight change HEENT: Absent: rhinorrhea, nasal congestion, throat pain, throat swelling, difficulty swallowing, mouth swelling, ear pain, eye pain, visual changes CARDIOVASCULAR: Absent: chest pain, syncope, palpitations, irregular heart rate, lightheadedness , peripheral edema RESPIRATORY: (+)dyspnea with exertion Absent: cough, shortness of breath, orthopnea, wheezing, stridor, hemoptysis GASTROINTESTINAL: Absent: abdominal pain, abdominal distension, nausea, vomiting, diarrhea, constipation, melena, hematochezia GENITOURINARY: Absent: dysuria, frequency, urgency, hesitancy, hematuria, flank pain, genital pain MUSCULOSKELETAL: Absent: myalgia, arthralgia, joint swelling, back pain, neck pain SKIN: Absent: rash, itching, pallor HEMATOLOGIC/IMMUNOLOGIC: Absent: easy bleeding, easy bruising, lymphadenopathy, frequent infections ENDOCRINE: Absent: unexplained weight gain, unexplained weight loss, heat intolerance, cold intolerance NEUROLOGIC: Absent: headache, focal weakness or paresthesias, dizziness, unsteady gait, seizure, mental status changes, bladder or bowel incontinence PSYCHIATRIC: Absent: anxiety, depression, suicidal or homicidal ideation, hallucinations. PHYSICAL EXAMINATION Vital Signs - 24 hr 01/08/17 01/08/17 01/08/17 10:02 10:30 11:18 Temperature Pulse Rate 66 Pulse Rate [ 62 60 Apical] Respiratory 22 18 20 Rate Blood Pressure 173/86 Blood Pressure 181/100 206/83 [Right Arm] O2 Sat by Pulse 97 100 98 Oximetry (%) 01/08/17 01/08/17 01/08/17 11:56 12:00 12:30 Temperature 99.2 F Pulse Rate 63 66 Pulse Rate [ Apical] Respiratory 19 20 Rate Blood Pressure 228/102 228/88 Blood Pressure [Right Arm] O2 Sat by Pulse 97 100 Oximetry (%) 01/08/17 01/08/17 01/08/17 13:00 13:30 13:40 Temperature Pulse Rate 68 69 Pulse Rate [ Apical] Respiratory 21 18 Rate Blood Pressure 156/72 158/78 Blood Pressure [Right Arm] O2 Sat by Pulse 100 Oximetry (%) 01/08/17 01/08/17 14:00 14:30 Temperature Pulse Rate 71 73 Pulse Rate [ Apical] Respiratory 20 19 Rate Blood Pressure 140/66 132/61 Blood Pressure [Right Arm] O2 Sat by Pulse Oximetry (%) GENERAL: Awake, alert, and fully oriented, in no acute distress. HEENT: Atraumatic, EOMI, PERRLA, No lymphadenopathy noted, dry membranes LUNGS: mild rales noted bilateral lower lung french HEART: Regular rate and rhythm, normal S1 and S2 without murmur, rub or gallop. ABDOMEN: Soft, nontender, not distended, normoactive bowel sounds EXTREMITIES: 2+ pulses, warm, well-perfused. No calf tenderness. Trace peripheral edema bilateral LE. NEUROLOGICAL: Cranial nerves II-XII intact. Normal speech. Gait not observed PSYCHIATRIC: Cooperative. Good eye contact. Appropriate mood and affect. SKIN: Warm, dry, normal turgor, no rashes or lesions noted. Active Medications Generic Name Dose Route Start Last Admin Trade Name Freq PRN Reason Stop Dose Admin Nitroglycerin/Dextrose 250 mls @ 48 mls/hr 01/08/17 08:00 01/08/17 14:18 Nitroglycerin 25mg/D5w 250ml IVPB 0 mcg/min TITR [facility] Titration 80 MCG/MIN Labetalol HCl 200 mg 01/08/17 14:00 01/08/17 14:35 Normodyne - PO Not Given TID [facility] Losartan Potassium 100 mg 01/08/17 14:00 01/08/17 14:35 Cozaar - PO Not Given DAILY [facility] Nifedipine 60 mg 01/08/17 11:00 01/08/17 12:11 Procardia Xl - PO 60 mg BID [facility] Administration Spironolactone 50 mg 01/08/17 16:00 Aldactone - PO DAILY [facility] Torsemide 40 mg 01/08/17 11:00 01/08/17 12:09 Demadex - PO 40 mg DAILY [facility] Administration ASSESSMENT/PLAN: 71 year old female with significant PMH of ESRD (Dialysis MWF), HTN, DM, Anemia who presented to ICU for urgent hemodialysis. Admitted for CKD with decompensated diastolic CHF d/t fluid overload. #Chronic Kidney Failure, with decompensated diastolic CHF -Hemodialysis being administered in ICU -diuresed with Lasix in ED -trend kidney function -avoid nephrotoxic meds -Low-sodium diet -fluid restriction -I & Os -nephrology consult appreciated #Hypertensive Emergency -started on nitro drip, can start to wean -continue Losartan, Aldactone, Labetalol, Torsemide & Nifedipine -Renal US (Dec 2016) showed no significant renal artery stenosis -cardiology consult appreciated #Acute Hypoxic respiratory failure -on bipap to help with work of breathing -saturating well at present -keep O2 sat >89% Prophylaxis -SCD's -Hemodialysis, sodium-controlled diet, will monitor electrolytes after HD Visit type - Emergency Visit Emergency Visit: Yes ED Registration Date: 01/08/17 Care time: The patient presented to the Emergency Department on the above date and was hospitalized for further evaluation of their emergent condition. - New Patient This patient is new to me today: Yes Date on this admission: 01/08/17 - Critical Care Critical Care patient: Yes Total Critical Care Time (in minutes): 50 Critical Care Statement: The care of this patient involved high complexity decision making to prevent further life threatening deterioration of the patient 's condition and/or to evalute & treat vital organ system(s) failure or risk of failure.
[2017-01-08] MEDS: SPIRONOLACTONE 25 MG TABLET (FP) PO SCH (16:14)
--- NOTE | 2017-01-08 18:16 | HP ---
Admitting History and Physical - Primary Care Physician PCP: Sofya Bills - Admission History of Present Illness: 71-year-old female with history of hypertension, end-stage renal disease on hemodialysis Sunday who presents the emergency department with acute onset shortness of breath, chest pain and hypertension this morning; the patient was started on BiPAP in the field by EMS. dr nascimento is nephro - Past Medical History Cardiovascular: Yes: CHF, HTN, Hyperlipdemia Renal/: Yes: Renal Failure, Hemodialysis Heme/Onc: Yes: Anemia Musculoskeletal: Yes: Chronic low back pain Endocrine: Yes: Diabetes Mellitus - Past Surgical History Past Surgical History: Yes: AV Fistula/Graft - Smoking History Smoking history: Never smoked Have you smoked in the past 12 months: No Aproximately how many cigarettes per day: 0 - Alcohol/Substance Use Hx Alcohol Use: No - Social History ADL: Independent History of Recent Travel: No Home Medications - Allergies Allergies/Adverse Reactions: Allergies Allergy/AdvReac Type Severity Reaction Status Date / Time No Known Allergies Allergy Verified 01/08/17 08:00 - Home Medications Home Medications: Ambulatory Orders Calcium Acetate [Phoslo -] 667 mg PO TID 01/08/17 Labetalol HCl [Normodyne -] 200 mg PO TID 01/08/17 Losartan Potassium 100 mg PO DAILY 01/08/17 Nifedipine ER [Procardia Xl -] 60 mg PO BID 01/08/17 Pravastatin Sodium 20 mg PO DAILY 01/08/17 Spironolactone 50 mg PO DAILY 01/08/17 Torsemide 40 mg PO DAILY 01/08/17 Physical Examination Vital Signs: Vital Signs Temperature 99.0 F 01/08/17 14:30 Pulse Rate 74 01/08/17 18:05 Respiratory Rate 18 01/08/17 18:05 Blood Pressure 155/76 01/08/17 18:05 O2 Sat by Pulse Oximetry (%) 100 01/08/17 17:31 Constitutional: Yes: No Distress HENT: Yes: Atraumatic Neck: Yes: Supple Cardiovascular: Yes: Regular Rate and Rhythm Respiratory: Yes: Rales, Rhonchi Gastrointestinal: Yes: Normal Bowel Sounds Extremities: Yes: WNL Neurological: Yes: Alert, Oriented Imaging - Results X-ray: Report Reviewed Problem List - Problems (1) ESRD (end stage renal disease) on dialysis Code(s): N18.6 - END STAGE RENAL DISEASE Z99.2 - DEPENDENCE ON RENAL DIALYSIS (2) Shortness of breath Code(s): R06.02 - SHORTNESS OF BREATH (3) CKD (chronic kidney disease) Code(s): N18.9 - CHRONIC KIDNEY DISEASE, UNSPECIFIED (4) Acute on chronic diastolic (congestive) heart failure Code(s): I50.33 - ACUTE ON CHRONIC DIASTOLIC (CONGESTIVE) HEART FAILURE (5) Hypertensive emergency Code(s): I10 - ESSENTIAL (PRIMARY) HYPERTENSION (6) Hypertensive renal disease Code(s): I12.9 - HYPERTENSIVE CHRONIC KIDNEY DISEASE W STG 1-4/UNSP CHR KDNY (7) Anemia Code(s): D64.9 - ANEMIA, UNSPECIFIED Qualifiers: Anemia type: unspecified type Qualified Code(s): D64.9 - Anemia, unspecified Assessment/Plan Laboratory Tests 01/08/17 01/08/17 01/08/17 08:10 08:10 08:10 WBC 15.8 H D RBC 4.08 D Hgb 11.1 D Hct 35.6 D MCV 87.2 MCHC 31.1 L RDW 19.3 H D Plt Count 171 MPV 9.0 Neutrophils % 87.0 H Lymphocytes % 5.1 L D Monocytes % 3.9 Eosinophils % 3.3 Basophils % 0.7 Sodium 137 Potassium 6.0 H Chloride 97 L Carbon Dioxide 29 Anion Gap 11 BUN 59 H Creatinine 7.5 H* Creat Clearance w eGFR 5.18 Random Glucose 218 H Calcium 9.0 Total Bilirubin 0.7 AST 13 L ALT 16 Alkaline Phosphatase 171 H D Creatine Kinase 96 Troponin I 0.05 B-Natriuretic Peptide 633296.30 H Total Protein 8.0 Albumin 4.2 Active Medications Generic Name Dose Route Start Last Admin Trade Name Freq PRN Reason Stop Dose Admin Nitroglycerin/Dextrose 250 mls @ 48 mls/hr 01/08/17 08:00 01/08/17 14:18 Nitroglycerin 25mg/D5w 250ml IVPB 0 mcg/min TITR [facility] Titration 80 MCG/MIN Labetalol HCl 200 mg 01/08/17 14:00 01/08/17 14:35 Normodyne - PO Not Given TID [facility] Losartan Potassium 100 mg 01/08/17 14:00 01/08/17 14:35 Cozaar - PO Not Given DAILY [facility] Nifedipine 60 mg 01/08/17 11:00 01/08/17 12:11 Procardia Xl - PO 60 mg BID [facility] Administration Spironolactone 50 mg 01/08/17 16:00 01/08/17 16:14 Aldactone - PO Not Given DAILY [facility] Torsemide 40 mg 01/08/17 11:00 01/08/17 12:09 Demadex - PO 40 mg DAILY [facility] Administration 1.acute on chronic heart failure on diuretics need hd to take out extra fluids 2.esrd on hd 3.htn uncntrolled on meds better now pt in icu on bipap and ntg drip dvt ppx cc time 60 min
[2017-01-08 21:41] LABS: BASOPHIL 0.5 % (0-2.0); EOSINOPHIL 1.5 % (0-4.5); MCH 27.7 pg (25.7-33.7); MCHC 32.5 g/dl (32.0-36.0); MEAN CELL VOLUME 85.1 fl (80-96); MEAN PLT VOLUME 9.1 fl (7.5-11.1); NEUTROPHILS 85.2 % (42.8-82.8); PLATELET COUNT 149 K/MM3 (134-434); RDW 18.8 % (11.6-15.6); WHITE BLOOD COUNT 10.3 K/mm3 (4.0-10.0)
[2017-01-08] MEDS ORDERED: hydrALAZINE HCL 20 MG/ML VIAL IVPUSH ONE (21:43)
[2017-01-08] MEDS ORDERED: LABETALOL HCL 200 MG TABLET (FP) PO SCH (22:00)
[2017-01-08 22:02] LABS: ALBUMIN 3.7 g/dl (3.4-5.0); BILIRUBIN,TOTAL 0.7 mg/dL (0.2-1.0); CALCIUM 8.6 mg/dL (8.5-10.1); CREATININE 3.5 mg/dL (0.55-1.02); TOT PROT 7.2 g/dl (6.4-8.2)
[2017-01-09] MEDS: LABETALOL HCL 200 MG TABLET (FP) PO SCH ×2 (05:45→20:24)
[2017-01-09 06:38] LABS: BASOPHIL 0.8 % (0-2.0); EOSINOPHIL 3.9 % (0-4.5); MCH 27.5 pg (25.7-33.7); MEAN CELL VOLUME 85.7 fl (80-96); MEAN PLT VOLUME 9.1 fl (7.5-11.1); NEUTROPHILS 76.6 % (42.8-82.8); PLATELET COUNT 154 K/MM3 (134-434); RDW 18.4 % (11.6-15.6)
--- NOTE | 2017-01-09 06:38 | PN ---
Progress Note (short form) - Note Progress Note: Chief Complaint: Events noted, notes reviewed, denies any further dyspnea, denies any chest pain complaining of cough History of Present Illness: Seen and examined in the ICU. Events noted, notes reviewed, denies any further dyspnea, denies any chest pain complaining of cough Remains hypertensive Echocardiography dated 12/25/2016 revealed normal LV size with mild cLVH, normal LV function, mod LAE, mild-moderate MR, mild AI and TR with of RVSP 50-60 mmHg Medications: Current Medications Nitroglycerin/Dextrose (Nitroglycerin 25mg/D5w 250ml) 250 mls @ 48 mls/hr IVPB TITR [facility] PRN Reason: 80 MCG/MIN Last Titration: 01/08/17 14:18 Dose: 0 mcg/min Labetalol HCl (Normodyne -) 200 mg PO TID [facility] Last Admin: 01/09/17 05:45 Dose: 200 mg Losartan Potassium (Cozaar -) 100 mg PO DAILY [facility] Last Admin: 01/08/17 14:35 Dose: Not Given Nifedipine (Procardia Xl -) 60 mg PO BID [facility] Last Admin: 01/08/17 21:51 Dose: Not Given Spironolactone (Aldactone -) 50 mg PO DAILY [facility] Last Admin: 01/08/17 16:14 Dose: Not Given Torsemide (Demadex -) 40 mg PO DAILY [facility] Last Admin: 01/08/17 12:09 Dose: 40 mg Review of Systems - Review of Systems Constitutional: denies: Chills, Fever Cardiovascular: As noted above Respiratory: reports: Cough without Sputum Production Gastrointestinal: denies: Nausea, Vomiting, Diarrhea, Constipation or Abdominal Pain Musculoskeletal: No symptoms reported Neurological: denies: Dizziness or Headaches Vital Signs: Last Vital Signs Temp Pulse Resp BP Pulse Ox 98.5 F 69 20 159/63 98 01/09/17 05:00 01/09/17 06:00 01/09/17 06:00 01/09/17 06:00 01/08/17 21:52 Constitutional: No Distress, Calm Neck: Supple Negative JVD Respiratory: diminished Breath Sounds at the Bases with Bilateral Basal Rales Cardiovascular: S1 S2 Regular Rate and Rhythm Grade 2/6 JAEL Gastrointestinal: Soft Benign Normal Bowel Sounds Ext: No Edema Lab Data: Troponin, BNP 01/08/17 08:10 Troponin I 0.05 B-Natriuretic Peptide 841600.30 H CBC and BMP pending from this AM Assessment/Plan ASSESSMENT: 1. Acute on chronic LV diastolic failure class II-III NYHA classification LV failure, resolving precipitated by 2. Hypertensive urgency 3. Hyperlipidemia 4. ESRD on HD PLAN: 1. HD as per renal service 2. Continue Labetolol and titrate dosage 3. Continue Procardia 4. Continue Cozaar 5. Question utilization of Aldactone and Demadex since patient currently is unuric 6. Resume Pravachol or equivalent statin 7. Follow labs from this AM Violette Moyer MD
[2017-01-09 06:49] LABS: INR 1.21 (0.82-1.09); PROTHROMBIN TIME (PATIENT) 13.4 SEC (9.98-11.88)
[2017-01-09 07:13] LABS: ALBUMIN 3.7 g/dl (3.4-5.0); BILIRUBIN,TOTAL 0.7 mg/dL (0.2-1.0); CALCIUM 8.4 mg/dL (8.5-10.1); CREATININE 4.3 mg/dL (0.55-1.02); MAGNESIUM 2.2 mg/dL (1.8-2.4); PHOSPHOROUS 4.8 mg/dL (2.5-4.9)
[2017-01-09 07:17] LABS: TROPONIN I 0.06 ng/ml (0.00-0.05)
[2017-01-09] MEDS: LOSARTAN POTASSIUM 50 MG TABLET (FP) PO SCH (09:01)
[2017-01-09] MEDS: SPIRONOLACTONE 25 MG TABLET (FP) PO SCH (09:01)
[2017-01-09] MEDS: TORSEMIDE 20 MG TABLET (FP) PO SCH (09:02)
[2017-01-09] MEDS: NIFEdipine E.R 60 MG TABLET (UD) PO SCH ×2 (09:02→20:24)
[2017-01-09] MEDS ORDERED: LABETALOL HCL 200 MG TABLET (FP) PO SCH (10:00)
[2017-01-09] MEDS ORDERED: guaiFENesin/D-M SUGAR-FREE/ACLHOL-FREE 118 ML BOTTLE PO PRN (11:16)
--- NOTE | 2017-01-09 11:17 | PN ---
Addendum entered and electronically signed by Jarrell Salmeron RES 01/09/17 12:02: Isolated UF today (with goal removal of 2-2.5L), not HD. Plan is for HD tomorrow. Original Note: Physical Exam: SUBJECTIVE: Patient seen and examined at bedside this AM in ICU. Afebrile overnight with good blood pressure control until this AM (up to 188/79 at 9am). States she is feeling much better after dialysis yesterday and is now able to ambulate to bathroom and sit upright in chair. Reports a mild productive cough over the last few days that has started to improve overnight. Seems to be back to mental status baseline. OBJECTIVE: Vital Signs Period Temp Pulse Resp BP Sys/Parker Pulse Ox Last 24 Hr 98 F-99.2 F 60-85 16-22 105-228/48-102 97-100 GENERAL: Awake, alert, and fully oriented, in no acute distress. HEENT: Atraumatic, EOMI, PERRLA, No lymphadenopathy noted, moist membranes LUNGS: mild rales noted bilateral lower lung french HEART: Regular rate and rhythm, normal S1 and S2 without murmur, rub or gallop. ABDOMEN: Soft, nontender, not distended, normoactive bowel sounds EXTREMITIES: 2+ pulses, warm, well-perfused. No calf tenderness. Trace peripheral edema bilateral LE. NEUROLOGICAL: Cranial nerves II-XII intact. Normal speech. Gait not observed PSYCHIATRIC: Cooperative. Good eye contact. Appropriate mood and affect. SKIN: Warm, dry, normal turgor, no rashes or lesions noted. Laboratory Results - last 24 hr 01/08/17 01/08/17 01/09/17 20:30 20:30 05:00 WBC 10.3 H D 9.0 RBC 3.51 L 3.55 L Hgb 9.7 L D 9.7 L Hct 29.9 L D 30.4 L MCV 85.1 85.7 MCHC 32.5 32.0 RDW 18.8 H 18.4 H Plt Count 149 154 MPV 9.1 9.1 Neutrophils % 85.2 H 76.6 Lymphocytes % 6.6 L D 9.8 D Monocytes % 6.2 8.9 Eosinophils % 1.5 3.9 D Basophils % 0.5 0.8 INR Sodium 141 Potassium 3.7 D Chloride 98 Carbon Dioxide 34 H Anion Gap 9 BUN 16 D Creatinine 3.5 H D Creat Clearance w eGFR 12.88 Random Glucose 264 H D Lactic Acid Calcium 8.6 Phosphorus Magnesium Total Bilirubin 0.7 AST 7 L D ALT 14 Alkaline Phosphatase 112 D Creatine Kinase Troponin I Total Protein 7.2 Albumin 3.7 01/09/17 01/09/17 01/09/17 05:00 05:00 05:00 WBC RBC Hgb Hct MCV MCHC RDW Plt Count MPV Neutrophils % Lymphocytes % Monocytes % Eosinophils % Basophils % INR 1.21 H Sodium 142 Potassium 4.3 Chloride 100 Carbon Dioxide 31 Anion Gap 11 BUN 22 H D Creatinine 4.3 H D Creat Clearance w eGFR 10.15 Random Glucose 171 H D Lactic Acid 0.811 Calcium 8.4 L Phosphorus 4.8 D Magnesium 2.2 Total Bilirubin 0.7 AST 11 L D ALT 12 Alkaline Phosphatase 97 Creatine Kinase 69 Troponin I 0.06 H Total Protein 7.0 Albumin 3.7 Active Medications Generic Name Dose Route Start Last Admin Trade Name Freq PRN Reason Stop Dose Admin Atorvastatin Calcium 10 mg 01/09/17 22:00 Lipitor - PO HS KARINA Labetalol HCl 400 mg 01/09/17 10:00 01/09/17 09:04 Normodyne - PO 400 mg BID KARINA Administration Losartan Potassium 100 mg 01/08/17 14:00 01/09/17 09:01 Cozaar - PO 100 mg DAILY KARINA Administration Nifedipine 60 mg 01/08/17 11:00 01/09/17 09:02 Procardia Xl - PO 60 mg BID KARINA Administration Spironolactone 50 mg 01/08/17 16:00 01/09/17 09:01 Aldactone - PO 50 mg DAILY KARINA Administration Torsemide 40 mg 01/08/17 11:00 01/09/17 09:02 Demadex - PO 40 mg DAILY KARINA Administration ASSESSMENT/PLAN: 71 year old female with significant PMH of ESRD (Dialysis MWF), HTN, DM, Anemia who presented to ICU for urgent hemodialysis. Admitted for CKD with decompensated diastolic CHF d/t fluid overload. #Chronic Kidney Failure, with decompensated diastolic CHF -Hemodialysis administered in ICU yesterday, may require again today -hyperkalemia resolved, creatinine now at 4.3 (was at 7.5) -Low-sodium diet -fluid restriction & I & Os -avoid nephrotoxic meds -nephrology consult appreciated #Hypertensive Emergency -continue Losartan, Aldactone, Labetalol, Torsemide & Nifedipine at current doses -if BP remains elevated, may need to increase Labetalol dosing -Renal US (Dec 2016) showed no significant renal artery stenosis -cardiology consult appreciated #Acute Hypoxic respiratory failure -saturating well on O2 NC @2 liters -keep O2 sat >89% -CXR improved from yesterday Prophylaxis -SCD's, Robitussin -Hemodialysis, sodium-controlled diet, will monitor electrolytes after HD Dispo: may be monitored on med-surg floors Visit type - Emergency Visit Emergency Visit: Yes ED Registration Date: 01/08/17 Care time: The patient presented to the Emergency Department on the above date and was hospitalized for further evaluation of their emergent condition. - New Patient This patient is new to me today: No - Critical Care Critical Care patient: Yes Total Critical Care Time (in minutes): 40 Critical Care Statement: The care of this patient involved high complexity decision making to prevent further life threatening deterioration of the patient 's condition and/or to evalute & treat vital organ system(s) failure or risk of failure.
[2017-01-09] MEDS ORDERED: FLUTICASONE PROP 0.05% 16 GM NASAL SPRAY NS SCH (11:30)
--- NOTE | 2017-01-09 11:50 | PN ---
Teaching Attending Note Name of Resident: Jarrell Salmeron ATTENDING PHYSICIAN STATEMENT I saw and evaluated the patient. I reviewed the resident's note and discussed the case with the resident. I agree with the resident's findings and plan as documented. SUBJECTIVE: Pt seen and examined in the ICU. Feels significantly improved today. Still with cough productive of yellow sputum. No fevers or chills. No chest pain. OBJECTIVE: Last Vital Signs Temp Pulse Resp BP Pulse Ox 98.9 F 64 18 152/79 99 01/09/17 10:42 01/09/17 11:00 01/09/17 11:00 01/09/17 11:00 01/09/17 10:25 Intake & Output 01/06/17 01/07/17 01/08/17 01/09/17 23:59 23:59 23:59 23:59 Intake Total 160 250 Output Total 15 0 Balance 145 250 Weight 163 lb 0.016 oz 158 lb 3 oz Gen: less tachypneic Heart: RRR Lung: basilar rales but less than yesterday Abd: soft, nontender Ext: no edema CBC, BMP 01/09/17 05:00 01/09/17 05:00 Active Medications Atorvastatin Calcium (Lipitor -) 10 mg PO HS [facility] Fluticasone Propionate (Flonase -) 2 spray NS DAILY [facility] Guaifenesin (Diabetic Tussin Dm -) 10 ml PO Q6H PRN PRN Reason: COUGH Labetalol HCl (Normodyne -) 400 mg PO BID [facility] Last Admin: 01/09/17 09:04 Dose: 400 mg Losartan Potassium (Cozaar -) 100 mg PO DAILY [facility] Last Admin: 01/09/17 09:01 Dose: 100 mg Nifedipine (Procardia Xl -) 60 mg PO BID [facility] Last Admin: 01/09/17 09:02 Dose: 60 mg Spironolactone (Aldactone -) 50 mg PO DAILY [facility] Last Admin: 01/09/17 09:01 Dose: 50 mg Torsemide (Demadex -) 40 mg PO DAILY [facility] Last Admin: 01/09/17 09:02 Dose: 40 mg ASSESSMENT AND PLAN: Hypertensive Urgency Acute on Chronic Diastolic Heart Failure Pulmonary HTN Pleural Effusions ESRD on HD Hyperkalemia Acute Respiratory Distress requiring NIPPV - HD per renal with ultrafiltration - titrate BP control with PO meds - nitrates as needed - BiPAP as needed to assist in work of breathing - O2 to keep SpO2 >90% - monitor lytes - DVT prophylaxis - can monitor on floor
--- NOTE | 2017-01-09 11:58 | PN ---
Progress Note (short form) - Note Progress Note: Renal Follow up for ESRD and Hypertensive Urgency Pt seen and examined in the ICU awake and alert reports + cough all night no sob or chest pain no ZENDEJAS or blurry vision s/p HD yesterday Vital Signs Temperature 98.9 F 01/09/17 10:42 Pulse Rate 64 01/09/17 11:00 Respiratory Rate 18 01/09/17 11:00 Blood Pressure 152/79 01/09/17 11:00 O2 Sat by Pulse Oximetry (%) 99 01/09/17 10:25 Intake & Output 01/06/17 01/07/17 01/08/17 01/09/17 23:59 23:59 23:59 23:59 Intake Total 160 250 Output Total 15 0 Balance 145 250 Weight 163 lb 0.016 oz 158 lb 3 oz Gen: NAD, awake and alert CVS: RRR, No M/R Lungs: + rales b/l lung french Abd: soft NT/ND Ext: No edmea, clubbing or cyanosis Access: Left ARM AVF + thrill and bruit CBC, BMP 01/09/17 05:00 01/09/17 05:00 Current Medications Atorvastatin Calcium (Lipitor -) 10 mg PO HS [facility] Fluticasone Propionate (Flonase -) 2 spray NS DAILY [facility] Guaifenesin (Diabetic Tussin Dm -) 10 ml PO Q6H PRN PRN Reason: COUGH Labetalol HCl (Normodyne -) 400 mg PO BID [facility] Last Admin: 01/09/17 09:04 Dose: 400 mg Losartan Potassium (Cozaar -) 100 mg PO DAILY [facility] Last Admin: 01/09/17 09:01 Dose: 100 mg Nifedipine (Procardia Xl -) 60 mg PO BID [facility] Last Admin: 01/09/17 09:02 Dose: 60 mg Spironolactone (Aldactone -) 50 mg PO DAILY [facility] Last Admin: 01/09/17 09:01 Dose: 50 mg Torsemide (Demadex -) 40 mg PO DAILY [facility] Last Admin: 01/09/17 09:02 Dose: 40 mg A/P 71 year old Woman with PMhx of ESRD on HD (MWF), Difficult to control hypertension, DM, CKD related Anemia who presented with complaints of chest pressure and SOB that started last night. #Fluid overload in ESRD Will plan for isolated UF today with goal removal of 2-2.5L Plan for HD tomorrow Dose all meds for intermittent HD #Hypertensive Emergency/Urgency Continue Losartan, Nifedpine, Labtalol (increased dose), Aldactone pt reports minimal urine output -> can d/c demadex #Hyperkalemia resolved s/p HD yesterday #Leukocytoiss now improved #Anemia Will continue CLIFTON with HD as long as bp is controlled Alf Mcmahan DO
--- NOTE | 2017-01-09 18:29 | PN ---
Progress Note, Physician - Current Medication List Current Medications: Active Medications Atorvastatin Calcium (Lipitor -) 10 mg PO HS [facility] Epoetin Arturo (Epogen -) 4,000 units IVPUSH ONCE ONE Stop: 01/10/17 06:01 Fluticasone Propionate (Flonase -) 2 spray NS DAILY [facility] Guaifenesin (Diabetic Tussin Dm -) 10 ml PO Q6H PRN PRN Reason: COUGH Labetalol HCl (Normodyne -) 400 mg PO BID [facility] Losartan Potassium (Cozaar -) 100 mg PO DAILY KARINA Nifedipine (Procardia Xl -) 60 mg PO BID KARINA Spironolactone (Aldactone -) 50 mg PO DAILY KARINA - Objective Vital Signs: Vital Signs Temperature 98.5 F 01/09/17 15:00 Pulse Rate 167 H 01/09/17 18:00 Respiratory Rate 18 01/09/17 18:00 Blood Pressure 118/69 01/09/17 18:00 O2 Sat by Pulse Oximetry (%) 99 01/09/17 10:25 HENT: Yes: Atraumatic Neck: Yes: Supple Cardiovascular: Yes: Regular Rate and Rhythm Respiratory: Yes: CTA Bilaterally Gastrointestinal: Yes: Normal Bowel Sounds Extremities: Yes: WNL Neurological: Yes: Alert, Oriented Labs: CBC, BMP 01/09/17 05:00 01/09/17 05:00 INR, PTT INR 1.21 (0.82-1.09) H 01/09/17 05:00 Problem List - Problems (1) ESRD (end stage renal disease) on dialysis Code(s): N18.6 - END STAGE RENAL DISEASE Z99.2 - DEPENDENCE ON RENAL DIALYSIS (2) Shortness of breath Code(s): R06.02 - SHORTNESS OF BREATH (3) CKD (chronic kidney disease) Code(s): N18.9 - CHRONIC KIDNEY DISEASE, UNSPECIFIED (4) Acute on chronic diastolic (congestive) heart failure Code(s): I50.33 - ACUTE ON CHRONIC DIASTOLIC (CONGESTIVE) HEART FAILURE Assessment/Plan 1.acute on chronic heart failure on diuretics better breathing...prn bipap 2.esrd on hd 3.htn better controlled doing well transfer to [facility] cc time 30 min
[2017-01-09] MEDS: ATORVASTATIN CA 10 MG TABLET (FP) PO SCH (21:47)
[2017-01-09] MEDS ORDERED: ATORVASTATIN CA 10 MG TABLET (FP) PO SCH (22:00)
[2017-01-09] MEDS ORDERED: hydrALAZINE HCL 20 MG/ML VIAL ONE (22:53)
[2017-01-09] MEDS: hydrALAZINE HCL 20 MG/ML VIAL IVPUSH PRN (22:59)
[2017-01-10] MEDS ORDERED: EPOETIN ALFA 2,000 UNITS/1 ML VIAL IVPUSH ONE ×2 (06:00→08:00)
[2017-01-10 06:02] LABS: BASOPHIL 0.8 % (0-2.0); MCH 27.2 pg (25.7-33.7); MCHC 31.8 g/dl (32.0-36.0); MEAN CELL VOLUME 85.6 fl (80-96); MEAN PLT VOLUME 8.6 fl (7.5-11.1); NEUTROPHILS 73.7 % (42.8-82.8); PLATELET COUNT 131 K/MM3 (134-434); RDW 18.5 % (11.6-15.6); WHITE BLOOD COUNT 8.9 K/mm3 (4.0-10.0)
[2017-01-10] MEDS: guaiFENesin/D-M SUGAR-FREE/ACLHOL-FREE 118 ML BOTTLE PO PRN ×3 (06:11→21:10)
[2017-01-10 07:03] LABS: ANION GAP 12 (8-16); CALCIUM 8.4 mg/dL (8.5-10.1); CO2 29 mmol/L (21-32); CREATININE 6.3 mg/dL (0.55-1.02); GLUCOSE,RANDOM 207 mg/dL (74-106)
--- NOTE | 2017-01-10 09:25 | PN ---
Physical Exam: SUBJECTIVE: Patient seen and examined at bedside this AM. AAO and very pleasant. afebrile overnight with BP under control (125-140 systolic for most of night). At her mental status baseline & states her cough is improving. Sitting upright in chair eating breakfast on her own. OBJECTIVE: Vital Signs Period Temp Pulse Resp BP Sys/Parker Pulse Ox Last 24 Hr 98.2 F-98.9 F 62-167 16-18 106-185/44-96 99-100 GENERAL: Awake, alert, and fully oriented, in no acute distress. HEENT: Atraumatic, EOMI, PERRLA, No lymphadenopathy noted, moist membranes LUNGS: mild rales noted bilateral lower lung french HEART: Regular rate and rhythm, normal S1 and S2 without murmur, rub or gallop. ABDOMEN: Soft, nontender, not distended, normoactive bowel sounds EXTREMITIES: 2+ pulses, warm, well-perfused. No calf tenderness. Trace peripheral edema bilateral LE. NEUROLOGICAL: Cranial nerves II-XII intact. Normal speech. Gait not observed PSYCHIATRIC: Cooperative. Good eye contact. Appropriate mood and affect. SKIN: Warm, dry, normal turgor, no rashes or lesions noted. Laboratory Results - last 24 hr 01/10/17 01/10/17 05:15 05:15 WBC 8.9 RBC 3.83 Hgb 10.4 L Hct 32.8 MCV 85.6 MCHC 31.8 L RDW 18.5 H Plt Count 131 L MPV 8.6 Neutrophils % 73.7 Lymphocytes % 9.1 Monocytes % 10.4 H Eosinophils % 6.0 H Basophils % 0.8 Sodium 139 Potassium 5.0 Chloride 98 Carbon Dioxide 29 Anion Gap 12 BUN 45 H D Creatinine 6.3 H D Random Glucose 207 H D Calcium 8.4 L Active Medications Generic Name Dose Route Start Last Admin Trade Name Freq PRN Reason Stop Dose Admin Atorvastatin Calcium 10 mg 01/09/17 22:00 01/09/17 21:47 Lipitor - PO 10 mg HS KARINA Administration Fluticasone Propionate 2 spray 01/10/17 10:00 Flonase - NS DAILY KARINA Guaifenesin 10 ml 01/09/17 12:14 01/10/17 06:11 Diabetic Tussin Dm - PO 10 ml Q6H PRN Administration COUGH Hydralazine HCl 10 mg 01/09/17 22:47 01/09/17 22:59 Apresoline Injection - IVPUSH 10 mg Q6H PRN Administration HYPERTENSION Labetalol HCl 400 mg 01/09/17 20:15 01/09/17 20:24 Normodyne - PO 400 mg BID KARINA Administration Losartan Potassium 100 mg 01/10/17 10:00 Cozaar - PO DAILY KARINA Nifedipine 60 mg 01/09/17 20:15 01/09/17 20:24 Procardia Xl - PO 60 mg BID KARINA Administration Spironolactone 50 mg 01/10/17 10:00 Aldactone - PO DAILY KARINA ASSESSMENT/PLAN: 71 year old female with significant PMH of ESRD (Dialysis MWF), HTN, DM, Anemia who presented to ICU for urgent hemodialysis. Admitted for CKD with decompensated diastolic CHF d/t fluid overload. #Chronic Kidney Failure, with decompensated diastolic CHF -Hemodialysis scheduled for today -hyperkalemia resolved, creatinine now 6.3 today -Low-sodium diet -fluid restriction & I & Os -avoid nephrotoxic meds -nephrology consult appreciated #Hypertensive Emergency -continue Losartan, Aldactone, Labetalol, Torsemide & Nifedipine at adjusted doses -added Hydralazine PRN -Renal US (Dec 2016) showed no significant renal artery stenosis -cardiology consult appreciated #Acute Hypoxic respiratory failure -saturating well on O2 NC @2 liters -keep O2 sat >89% -CXR after HD today Prophylaxis -SCD's, Robitussin -Hemodialysis, sodium-controlled diet, will monitor electrolytes after HD Dispo: may be monitored on med-surg floors Visit type - Emergency Visit Emergency Visit: Yes ED Registration Date: 01/08/17 Care time: The patient presented to the Emergency Department on the above date and was hospitalized for further evaluation of their emergent condition. - New Patient This patient is new to me today: No - Critical Care Critical Care patient: Yes Total Critical Care Time (in minutes): 45 Critical Care Statement: The care of this patient involved high complexity decision making to prevent further life threatening deterioration of the patient 's condition and/or to evalute & treat vital organ system(s) failure or risk of failure.
[2017-01-10 10:37] LABS: ALBUMIN 3.8 g/dl (3.4-5.0); ALK PHOS 129 U/L (45-117); BILIRUBIN,TOTAL 0.5 mg/dL (0.2-1.0); PHOSPHOROUS 6.1 mg/dL (2.5-4.9); SGOT/AST 7 U/L (15-37); SGPT/ALT 14 U/L (12-78); TOT PROT 7.3 g/dl (6.4-8.2)
[2017-01-10] MEDS: PANTOPRAZOLE 40 MG TABLET (FP) PO SCH (11:19)
[2017-01-10] MEDS: LABETALOL HCL 200 MG TABLET (FP) PO SCH ×2 (11:19→20:59)
[2017-01-10] MEDS ORDERED: PT OWN MED DRAWER 7, Y5N ONE ×4 (11:29→21:09)
--- NOTE | 2017-01-10 11:37 | PN ---
Progress Note (short form) - Note Progress Note: Renal Follow up for ESRD and Hypertensive Urgency Pt seen and examined in the ICU tolerated HD, UF 2.3L BP low toward end of dialysis, 200cc of NS was given BP ok off dialysis pt continues to have cough and lower abd pain no N/V Vital Signs Temperature 98.8 F 01/10/17 06:55 Pulse Rate 70 01/10/17 11:00 Respiratory Rate 20 01/10/17 11:00 Blood Pressure 161/72 01/10/17 11:00 O2 Sat by Pulse Oximetry (%) 100 01/10/17 10:35 Intake & Output 01/07/17 01/08/17 01/09/17 01/10/17 23:59 23:59 23:59 23:59 Intake Total 160 750 250 Output Total 15 0 Balance 145 750 250 Weight 163 lb 0.016 oz 158 lb 3 oz 136 lb 2 oz Gen: NAD, awake and alert CVS: RRR, No M/R Lungs: CTA (anterior exam) Abd: soft NT/ND Ext: No edmea, clubbing or cyanosis Access: Left ARM AVF + thrill and bruit CBC, BMP 01/10/17 05:15 01/10/17 05:15 Current Medications Atorvastatin Calcium (Lipitor -) 10 mg PO HS KARINA Last Admin: 01/09/17 21:47 Dose: 10 mg Fluticasone Propionate (Flonase -) 2 spray NS DAILY [facility] Guaifenesin (Diabetic Tussin Dm -) 10 ml PO Q6H PRN PRN Reason: COUGH Last Admin: 01/10/17 06:11 Dose: 10 ml Hydralazine HCl (Apresoline Injection -) 10 mg IVPUSH Q6H PRN PRN Reason: HYPERTENSION Last Admin: 01/09/17 22:59 Dose: 10 mg Labetalol HCl (Normodyne -) 400 mg PO BID KARINA Last Admin: 01/10/17 11:19 Dose: 400 mg Losartan Potassium (Cozaar -) 100 mg PO DAILY [facility] Nifedipine (Procardia Xl -) 60 mg PO BID [facility] Last Admin: 01/09/17 20:24 Dose: 60 mg Pantoprazole Sodium (Protonix -) 40 mg PO DAILY [facility] Last Admin: 01/10/17 11:19 Dose: 40 mg Spironolactone (Aldactone -) 50 mg PO DAILY KARINA A/P 71 year old Woman with PMhx of ESRD on HD (MWF), Difficult to control hypertension, DM, CKD related Anemia who presented with complaints of chest pressure and SOB that started last night. #Fluid overload in ESRD Tolerated HD today with 2.3L UF Volume status looks much improved will decide tomorrow if additional UF is needed #Hypertensive Emergency/Urgency BP improved on current meds + UF #Abd Pain pt known to have mass lesion on ampulla s/p Biopies last admission seen by GI today with tenderness -> ? need for imaging studies (will discuss with ICU staff ) started on Protonix PO (cough related to gerd?) Alf Mcmahan DO
[2017-01-10] MEDS: NIFEdipine E.R 60 MG TABLET (UD) PO SCH ×2 (12:16→20:59)
[2017-01-10] MEDS: LOSARTAN POTASSIUM 50 MG TABLET (FP) PO SCH (12:16)
--- NOTE | 2017-01-10 12:33 | PN ---
Teaching Attending Note Name of Resident: Jarrell Salmeron ATTENDING PHYSICIAN STATEMENT I saw and evaluated the patient. I reviewed the resident's note and discussed the case with the resident. I agree with the resident's findings and plan as documented. SUBJECTIVE: Pt seen and examined in the ICU. Still some coughing but no shortness of breath or chest pain. Hypotensive during dialysis today, ultrafiltration stopped. OBJECTIVE: Last Vital Signs Temp Pulse Resp BP Pulse Ox 98.8 F 70 20 161/72 100 01/10/17 06:55 01/10/17 11:00 01/10/17 11:00 01/10/17 11:00 01/10/17 10:35 Intake & Output 01/07/17 01/08/17 01/09/17 01/10/17 23:59 23:59 23:59 23:59 Intake Total 160 750 250 Output Total 15 0 Balance 145 750 250 Weight 163 lb 0.016 oz 158 lb 3 oz 136 lb 2 oz Gen: NAD lying supine Heart: RRR Lung: decreased breath sounds at the bases Abd: soft, nontender Ext: no edema CBC, BMP 01/10/17 05:15 01/10/17 05:15 Active Medications Atorvastatin Calcium (Lipitor -) 10 mg PO HS [facility] Last Admin: 01/09/17 21:47 Dose: 10 mg Fluticasone Propionate (Flonase -) 2 spray NS DAILY [facility] Guaifenesin (Diabetic Tussin Dm -) 10 ml PO Q6H PRN PRN Reason: COUGH Last Admin: 01/10/17 06:11 Dose: 10 ml Hydralazine HCl (Apresoline Injection -) 10 mg IVPUSH Q6H PRN PRN Reason: HYPERTENSION Last Admin: 01/09/17 22:59 Dose: 10 mg Labetalol HCl (Normodyne -) 400 mg PO BID [facility] Last Admin: 01/10/17 11:19 Dose: 400 mg Losartan Potassium (Cozaar -) 100 mg PO DAILY [facility] Last Admin: 01/10/17 12:16 Dose: 100 mg Nifedipine (Procardia Xl -) 60 mg PO BID [facility] Last Admin: 01/10/17 12:16 Dose: 60 mg Pantoprazole Sodium (Protonix -) 40 mg PO DAILY [facility] Last Admin: 01/10/17 11:19 Dose: 40 mg Spironolactone (Aldactone -) 50 mg PO DAILY KARINA ASSESSMENT AND PLAN: Hypertensive Urgency resolved Acute on Chronic Diastolic Heart Failure Pulmonary HTN Pleural Effusions ESRD on HD Hyperkalemia Acute Respiratory Distress requiring NIPPV - HD per renal with ultrafiltration - titrate BP control with PO meds - nitrates as needed - BiPAP as needed to assist in work of breathing - O2 to keep SpO2 >90% - monitor lytes - DVT prophylaxis - can monitor on floor
[2017-01-10] MEDS: FLUTICASONE PROP 0.05% 16 GM NASAL SPRAY NS SCH (13:18)
[2017-01-10] MEDS: SPIRONOLACTONE 25 MG TABLET (FP) PO SCH (13:22)
--- NOTE | 2017-01-10 16:18 | PN ---
Progress Note, Physician History of Present Illness: Cough without dyspnea or chest pain. - Current Medication List Current Medications: Active Medications Atorvastatin Calcium (Lipitor -) 10 mg PO HS [facility] Last Admin: 01/09/17 21:47 Dose: 10 mg Fluticasone Propionate (Flonase -) 2 spray NS DAILY [facility] Last Admin: 01/10/17 13:18 Dose: 2 sprays Guaifenesin (Diabetic Tussin Dm -) 10 ml PO Q6H PRN PRN Reason: COUGH Last Admin: 01/10/17 13:26 Dose: 10 ml Hydralazine HCl (Apresoline Injection -) 10 mg IVPUSH Q6H PRN PRN Reason: HYPERTENSION Last Admin: 01/09/17 22:59 Dose: 10 mg Labetalol HCl (Normodyne -) 400 mg PO BID [facility] Last Admin: 01/10/17 11:19 Dose: 400 mg Losartan Potassium (Cozaar -) 100 mg PO DAILY [facility] Last Admin: 01/10/17 12:16 Dose: 100 mg Nifedipine (Procardia Xl -) 60 mg PO BID [facility] Last Admin: 01/10/17 12:16 Dose: 60 mg Pantoprazole Sodium (Protonix -) 40 mg PO DAILY [facility] Last Admin: 01/10/17 11:19 Dose: 40 mg Spironolactone (Aldactone -) 50 mg PO DAILY [facility] Last Admin: 01/10/17 13:22 Dose: 50 mg - Objective Vital Signs: Vital Signs Temperature 98.8 F 01/10/17 06:55 Pulse Rate 70 01/10/17 11:00 Respiratory Rate 20 01/10/17 11:00 Blood Pressure 136/83 01/10/17 12:00 O2 Sat by Pulse Oximetry (%) 100 01/10/17 13:27 Constitutional: Yes: No Distress, Calm Neck: Yes: Supple Cardiovascular: Yes: Regular Rate and Rhythm Respiratory: Yes: Regular, Diminished, On Nasal O2 Gastrointestinal: Yes: Normal Bowel Sounds, Soft Edema: No Labs: CBC, BMP 01/10/17 05:15 01/10/17 05:15 INR, PTT INR 1.21 (0.82-1.09) H 01/09/17 05:00 Problem List - Problems (1) Hypertensive emergency Code(s): I10 - ESSENTIAL (PRIMARY) HYPERTENSION (2) ESRD (end stage renal disease) on dialysis Code(s): N18.6 - END STAGE RENAL DISEASE Z99.2 - DEPENDENCE ON RENAL DIALYSIS (3) Hypertensive renal disease Code(s): I12.9 - HYPERTENSIVE CHRONIC KIDNEY DISEASE W STG 1-4/UNSP CHR KDNY (4) End stage renal disease Code(s): N18.6 - END STAGE RENAL DISEASE (5) Hyperlipidemia Code(s): E78.5 - HYPERLIPIDEMIA, UNSPECIFIED Qualifiers: Hyperlipidemia type: pure hypercholesterolemia Qualified Code(s): E78.0 - Pure hypercholesterolemia (6) Acute on chronic diastolic (congestive) heart failure Code(s): I50.33 - ACUTE ON CHRONIC DIASTOLIC (CONGESTIVE) HEART FAILURE Assessment/Plan 1. Acute on chronic LV diastolic failure class II-III NYHA classification LV failure, resolving precipitated by 2. Hypertensive urgency 3. Hyperlipidemia 4. ESRD on HD PLAN: 1. HD as per renal service 2. Continue Labetolol 200 bid 3. Continue Procardia 60 bid 4. Continue Cozaar 100 qd and Aldactone 50 qd 5. Continue Lipitor 10 qhs 6. Ambulate, d/c planning
[2017-01-10] MEDS: hydrALAZINE HCL 20 MG/ML VIAL IVPUSH PRN (20:04)
--- NOTE | 2017-01-10 20:37 | PN ---
Progress Note, Physician - Current Medication List Current Medications: Active Medications Atorvastatin Calcium (Lipitor -) 10 mg PO HS [facility] Last Admin: 01/09/17 21:47 Dose: 10 mg Fluticasone Propionate (Flonase -) 2 spray NS DAILY [facility] Last Admin: 01/10/17 13:18 Dose: 2 sprays Guaifenesin (Diabetic Tussin Dm -) 10 ml PO Q6H PRN PRN Reason: COUGH Last Admin: 01/10/17 13:26 Dose: 10 ml Hydralazine HCl (Apresoline Injection -) 10 mg IVPUSH Q6H PRN PRN Reason: HYPERTENSION Last Admin: 01/10/17 20:04 Dose: 10 mg Labetalol HCl (Normodyne -) 400 mg PO BID [facility] Last Admin: 01/10/17 11:19 Dose: 400 mg Losartan Potassium (Cozaar -) 100 mg PO DAILY [facility] Last Admin: 01/10/17 12:16 Dose: 100 mg Nifedipine (Procardia Xl -) 60 mg PO BID [facility] Last Admin: 01/10/17 12:16 Dose: 60 mg Pantoprazole Sodium (Protonix -) 40 mg PO DAILY [facility] Last Admin: 01/10/17 11:19 Dose: 40 mg Spironolactone (Aldactone -) 50 mg PO DAILY [facility] Last Admin: 01/10/17 13:22 Dose: 50 mg - Objective Vital Signs: Vital Signs Temperature 98.7 F 01/10/17 18:00 Pulse Rate 70 01/10/17 18:00 Respiratory Rate 18 01/10/17 18:00 Blood Pressure 144/62 01/10/17 18:00 O2 Sat by Pulse Oximetry (%) 100 01/10/17 20:00 Constitutional: Yes: No Distress HENT: Yes: Atraumatic Neck: Yes: Supple Cardiovascular: Yes: Regular Rate and Rhythm Respiratory: Yes: CTA Bilaterally Gastrointestinal: Yes: Normal Bowel Sounds Extremities: Yes: WNL Neurological: Yes: Alert, Oriented Labs: CBC, BMP 01/10/17 05:15 01/10/17 05:15 INR, PTT INR 1.21 (0.82-1.09) H 01/09/17 05:00 Problem List - Problems (1) ESRD (end stage renal disease) on dialysis Code(s): N18.6 - END STAGE RENAL DISEASE Z99.2 - DEPENDENCE ON RENAL DIALYSIS (2) Shortness of breath Code(s): R06.02 - SHORTNESS OF BREATH (3) CKD (chronic kidney disease) Code(s): N18.9 - CHRONIC KIDNEY DISEASE, UNSPECIFIED (4) Acute on chronic diastolic (congestive) heart failure Code(s): I50.33 - ACUTE ON CHRONIC DIASTOLIC (CONGESTIVE) HEART FAILURE (5) Hypertensive emergency Code(s): I10 - ESSENTIAL (PRIMARY) HYPERTENSION (6) Hypertensive renal disease Code(s): I12.9 - HYPERTENSIVE CHRONIC KIDNEY DISEASE W STG 1-4/UNSP CHR KDNY (7) Anemia Code(s): D64.9 - ANEMIA, UNSPECIFIED Qualifiers: Anemia type: unspecified type Qualified Code(s): D64.9 - Anemia, unspecified Assessment/Plan 1.acute on chronic heart failure on diuretics better breathing...prn bipap 2.esrd on hd 3.htn better controlled doing well transfer to tele cardiology to look into the doses of cardiac meds
[2017-01-10] MEDS: ATORVASTATIN CA 10 MG TABLET (FP) PO SCH (20:59)
[2017-01-11] MEDS ORDERED: PT OWN MED DRAWER 7, Y5N ONE (04:01)
[2017-01-11 06:21] LABS: BASOPHIL 0.9 % (0-2.0); EOSINOPHIL 5.4 % (0-4.5); MCH 27.3 pg (25.7-33.7); MCHC 31.7 g/dl (32.0-36.0); MEAN PLT VOLUME 8.9 fl (7.5-11.1); NEUTROPHILS 72.1 % (42.8-82.8); PLATELET COUNT 126 K/MM3 (134-434); RDW 18.5 % (11.6-15.6); WHITE BLOOD COUNT 7.5 K/mm3 (4.0-10.0)
[2017-01-11] MEDS: hydrALAZINE HCL 20 MG/ML VIAL IVPUSH PRN (06:21)
[2017-01-11 06:44] LABS: ALBUMIN 3.8 g/dl (3.4-5.0); BILIRUBIN,TOTAL 0.6 mg/dL (0.2-1.0); CREATININE 4.6 mg/dL (0.55-1.02); PHOSPHOROUS 5.5 mg/dL (2.5-4.9); TOT PROT 7.3 g/dl (6.4-8.2)
[2017-01-11 07:55] LABS: MAGNESIUM 2.2 mg/dL (1.8-2.4)
--- NOTE | 2017-01-11 09:34 | PN ---
Progress Note, Physician History of Present Illness: Cough without dyspnea or chest pain. BP 143/47. - Current Medication List Current Medications: Active Medications Atorvastatin Calcium (Lipitor -) 10 mg PO HS [facility] Last Admin: 01/10/17 20:59 Dose: 10 mg Fluticasone Propionate (Flonase -) 2 spray NS DAILY [facility] Last Admin: 01/10/17 13:18 Dose: 2 sprays Guaifenesin (Diabetic Tussin Dm -) 10 ml PO Q6H PRN PRN Reason: COUGH Last Admin: 01/10/17 21:10 Dose: 10 ml Hydralazine HCl (Apresoline Injection -) 10 mg IVPUSH Q6H PRN PRN Reason: HYPERTENSION Last Admin: 01/11/17 06:21 Dose: 10 mg Labetalol HCl (Normodyne -) 400 mg PO BID [facility] Last Admin: 01/10/17 20:59 Dose: 400 mg Losartan Potassium (Cozaar -) 100 mg PO DAILY [facility] Last Admin: 01/10/17 12:16 Dose: 100 mg Nifedipine (Procardia Xl -) 60 mg PO BID [facility] Last Admin: 01/10/17 20:59 Dose: 60 mg Pantoprazole Sodium (Protonix -) 40 mg PO DAILY [facility] Last Admin: 01/10/17 11:19 Dose: 40 mg Spironolactone (Aldactone -) 50 mg PO DAILY [facility] Last Admin: 01/10/17 13:22 Dose: 50 mg - Objective Vital Signs: Vital Signs Temperature 98.6 F 01/11/17 02:00 Pulse Rate 74 01/11/17 06:00 Respiratory Rate 15 01/11/17 08:43 Blood Pressure 182/106 01/11/17 06:00 O2 Sat by Pulse Oximetry (%) 100 01/11/17 08:43 Constitutional: Yes: No Distress, Calm Neck: Yes: Supple Cardiovascular: Yes: Regular Rate and Rhythm Respiratory: Yes: Regular, Diminished Gastrointestinal: Yes: Normal Bowel Sounds, Soft Edema: No Labs: CBC, BMP 01/11/17 05:20 01/11/17 05:20 INR, PTT INR 1.21 (0.82-1.09) H 01/09/17 05:00 - ....Imaging Chest X-ray: Report Reviewed (NAD) Problem List - Problems (1) Hypertensive emergency Code(s): I10 - ESSENTIAL (PRIMARY) HYPERTENSION (2) ESRD (end stage renal disease) on dialysis Code(s): N18.6 - END STAGE RENAL DISEASE Z99.2 - DEPENDENCE ON RENAL DIALYSIS (3) Hypertensive renal disease Code(s): I12.9 - HYPERTENSIVE CHRONIC KIDNEY DISEASE W STG 1-4/UNSP CHR KDNY (4) End stage renal disease Code(s): N18.6 - END STAGE RENAL DISEASE (5) Hyperlipidemia Code(s): E78.5 - HYPERLIPIDEMIA, UNSPECIFIED Qualifiers: Hyperlipidemia type: pure hypercholesterolemia Qualified Code(s): E78.0 - Pure hypercholesterolemia (6) Acute on chronic diastolic (congestive) heart failure Code(s): I50.33 - ACUTE ON CHRONIC DIASTOLIC (CONGESTIVE) HEART FAILURE Assessment/Plan 1. Acute on chronic LV diastolic failure class II-III NYHA classification LV failure, resolving precipitated by 2. Hypertensive urgency 3. Hyperlipidemia 4. ESRD on HD PLAN: 1. HD as per renal service 2. Continue Labetolol 400 bid 3. Continue Procardia 60 bid 4. Continue Cozaar 100 qd and Aldactone 50 qd 5. Continue Lipitor 10 qhs 6. Ambulate, d/c planning
--- NOTE | 2017-01-11 10:22 | PN ---
Progress Note (short form) - Note Progress Note: Renal Follow up for ESRD and Hypertensive Urgency Pt seen and examined in the ICU awake and alert continues to have a cough abd pain is improved no N/V/D s/p dialysis yesterday Vital Signs Temperature 98.6 F 01/11/17 02:00 Pulse Rate 74 01/11/17 06:00 Respiratory Rate 15 01/11/17 08:43 Blood Pressure 182/106 01/11/17 06:00 O2 Sat by Pulse Oximetry (%) 100 01/11/17 08:43 Intake & Output 01/08/17 01/09/17 01/10/17 01/11/17 23:59 23:59 23:59 23:59 Intake Total 160 750 960 50 Output Total 15 0 Balance 145 750 960 50 Weight 163 lb 0.016 oz 158 lb 3 oz 136 lb 2 oz Gen: NAD, awake and alert CVS: RRR, No M/R Lungs: CTA (anterior exam) Abd: soft NT/ND Ext: No edmea, clubbing or cyanosis Access: Left ARM AVF + thrill and bruit CBC, BMP 01/11/17 05:20 01/11/17 05:20 Laboratory Tests 01/11/17 05:20 Calcium 9.0 Phosphorus 5.5 H Magnesium 2.2 Albumin 3.8 Current Medications Atorvastatin Calcium (Lipitor -) 10 mg PO HS [facility] Last Admin: 01/10/17 20:59 Dose: 10 mg Fluticasone Propionate (Flonase -) 2 spray NS DAILY [facility] Last Admin: 01/10/17 13:18 Dose: 2 sprays Guaifenesin (Diabetic Tussin Dm -) 10 ml PO Q6H PRN PRN Reason: COUGH Last Admin: 01/10/17 21:10 Dose: 10 ml Hydralazine HCl (Apresoline Injection -) 10 mg IVPUSH Q6H PRN PRN Reason: HYPERTENSION Last Admin: 01/11/17 06:21 Dose: 10 mg Labetalol HCl (Normodyne -) 400 mg PO BID [facility] Last Admin: 01/10/17 20:59 Dose: 400 mg Losartan Potassium (Cozaar -) 100 mg PO DAILY [facility] Last Admin: 01/10/17 12:16 Dose: 100 mg Nifedipine (Procardia Xl -) 60 mg PO BID [facility] Last Admin: 01/10/17 20:59 Dose: 60 mg Pantoprazole Sodium (Protonix -) 40 mg PO DAILY [facility] Last Admin: 01/10/17 11:19 Dose: 40 mg Spironolactone (Aldactone -) 50 mg PO DAILY [facility] Last Admin: 01/10/17 13:22 Dose: 50 mg A/P 71 year old Woman with PMhx of ESRD on HD (MWF), Difficult to control hypertension, DM, CKD related Anemia who presented with complaints of chest pressure and SOB that started last night. #Fluid overload in ESRD volume status is improved last dialysis was yesterday with 2.3L UF no indication for dialysis today continue low salt diet and fluid restriction #Hypertensive Emergency/Urgency Continue Aldactone, Labetalol, Nifedipine, losaratn #Abd Pain pt known to have mass lesion on ampulla GI follow up waiting transfer to regular floor d/c planning Alf Mcmahan DO
[2017-01-11] MEDS ORDERED: diphenhydrAMINE HCL 25 MG CAPSULE (FP) PO ONE (10:30)
[2017-01-11] MEDS: NIFEdipine E.R 60 MG TABLET (UD) PO SCH ×2 (10:33→21:19)
[2017-01-11] MEDS: LABETALOL HCL 200 MG TABLET (FP) PO SCH ×2 (10:33→21:19)
[2017-01-11] MEDS: SPIRONOLACTONE 25 MG TABLET (FP) PO SCH (10:35)
[2017-01-11] MEDS: LOSARTAN POTASSIUM 50 MG TABLET (FP) PO SCH (10:35)
[2017-01-11] MEDS: PANTOPRAZOLE 40 MG TABLET (FP) PO SCH (10:35)
[2017-01-11] MEDS: FLUTICASONE PROP 0.05% 16 GM NASAL SPRAY NS SCH (10:45)
--- NOTE | 2017-01-11 11:10 | PN ---
Physical Exam: SUBJECTIVE: Patient seen and examined at bedside this AM. AAO and resting comfortably. Afebrile overnight with good BP control. States cough has improved. States she follows with Dr Diehl for pancreatic mass. OBJECTIVE: Vital Signs Period Temp Pulse Resp BP Sys/Parker Pulse Ox Last 24 Hr 98.6 F-98.7 F 70-87 15-21 134-182/43-106 100-100 GENERAL: Awake, alert, and fully oriented, in no acute distress. HEENT: Atraumatic, EOMI, PERRLA, No lymphadenopathy noted, moist membranes LUNGS: mild rales noted bilateral lower lung french HEART: Regular rate and rhythm, normal S1 and S2 without murmur, rub or gallop. ABDOMEN: Soft, nontender, not distended, normoactive bowel sounds EXTREMITIES: 2+ pulses, warm, well-perfused. No calf tenderness. Trace peripheral edema bilateral LE. NEUROLOGICAL: Cranial nerves II-XII intact. Normal speech. Gait not observed PSYCHIATRIC: Cooperative. Good eye contact. Appropriate mood and affect. SKIN: Warm, dry, normal turgor, no rashes or lesions noted. Laboratory Results - last 24 hr 01/10/17 01/11/17 01/11/17 05:15 05:20 05:20 WBC 7.5 RBC 4.10 Hgb 11.2 Hct 35.3 MCV 86.0 MCHC 31.7 L RDW 18.5 H Plt Count 126 L MPV 8.9 Neutrophils % 72.1 Lymphocytes % 11.7 D Monocytes % 9.9 Eosinophils % 5.4 H Basophils % 0.9 Sodium 142 Potassium 4.4 Chloride 99 Carbon Dioxide 33 H Anion Gap 10 BUN 30 H D Creatinine 4.6 H D Creat Clearance w eGFR Y 9.39 Random Glucose 190 H Calcium 9.0 Phosphorus 5.5 H Magnesium 2.2 Total Bilirubin 0.6 AST 8 L ALT 12 Alkaline Phosphatase 107 Total Protein 7.3 Albumin 3.8 01/11/17 05:20 WBC RBC Hgb Hct MCV MCHC RDW Plt Count MPV Neutrophils % Lymphocytes % Monocytes % Eosinophils % Basophils % Sodium Potassium Chloride Carbon Dioxide Anion Gap BUN Creatinine Creat Clearance w eGFR Random Glucose Calcium Phosphorus Magnesium Cancelled Total Bilirubin AST ALT Alkaline Phosphatase Total Protein Albumin Active Medications Generic Name Dose Route Start Last Admin Trade Name Freq PRN Reason Stop Dose Admin Atorvastatin Calcium 10 mg 01/09/17 22:00 01/10/17 20:59 Lipitor - PO 10 mg HS [facility] Administration Diphenhydramine HCl 25 mg 01/11/17 22:00 Benadryl - PO HS [facility] Fluticasone Propionate 2 spray 01/10/17 10:00 01/11/17 10:45 Flonase - NS 2 sprays DAILY [facility] Administration Guaifenesin 10 ml 01/09/17 12:14 01/10/17 21:10 Diabetic Tussin Dm - PO 10 ml Q6H PRN Administration COUGH Hydralazine HCl 10 mg 01/09/17 22:47 01/11/17 06:21 Apresoline Injection - IVPUSH 10 mg Q6H PRN Administration HYPERTENSION Labetalol HCl 400 mg 01/09/17 20:15 01/11/17 10:33 Normodyne - PO 400 mg BID [facility] Administration Losartan Potassium 100 mg 01/10/17 10:00 01/11/17 10:35 Cozaar - PO 100 mg DAILY [facility] Administration Nifedipine 60 mg 01/09/17 20:15 01/11/17 10:33 Procardia Xl - PO 60 mg BID [facility] Administration Pantoprazole Sodium 40 mg 01/10/17 11:00 01/11/17 10:35 Protonix - PO 40 mg DAILY [facility] Administration Spironolactone 50 mg 01/10/17 10:00 01/11/17 10:35 Aldactone - PO 50 mg DAILY [facility] Administration ASSESSMENT/PLAN: 71 year old female with significant PMH of ESRD (Dialysis MWF), HTN, DM, Anemia who presented to ICU for urgent hemodialysis. Admitted for CKD with decompensated diastolic CHF d/t fluid overload. #Chronic Kidney Failure, with decompensated diastolic CHF -received HD yesterday -Low-sodium diet -fluid restriction & I & Os -avoid nephrotoxic meds -nephrology consult appreciated #Hypertensive Emergency -continue Losartan, Aldactone, Labetalol, Torsemide & Nifedipine at adjusted doses -Hydralazine PRN -Renal US (Dec 2016) showed no significant renal artery stenosis -cardiology consult appreciated #Acute Hypoxic respiratory failure -saturating well on O2 NC @2 liters -keep O2 sat >89% -CXR Prophylaxis -SCD's, Robitussin -Hemodialysis, sodium-controlled diet, will monitor electrolytes after HD Dispo: may be monitored on med-surg floors if not discharged later today Visit type - Emergency Visit Emergency Visit: Yes ED Registration Date: 01/08/17 Care time: The patient presented to the Emergency Department on the above date and was hospitalized for further evaluation of their emergent condition. - New Patient This patient is new to me today: No - Critical Care Critical Care patient: Yes Total Critical Care Time (in minutes): 50 Critical Care Statement: The care of this patient involved high complexity decision making to prevent further life threatening deterioration of the patient 's condition and/or to evalute & treat vital organ system(s) failure or risk of failure.
--- NOTE | 2017-01-11 11:49 | PN ---
Teaching Attending Note Name of Resident: Jarrell Salmeron ATTENDING PHYSICIAN STATEMENT I saw and evaluated the patient. I reviewed the resident's note and discussed the case with the resident. I agree with the resident's findings and plan as documented. SUBJECTIVE: Pt seen and examined in the ICU. Still with cough but denies shortness of breath or chest pain. OBJECTIVE: Last Vital Signs Temp Pulse Resp BP Pulse Ox 98.6 F 87 15 182/106 100 01/11/17 02:00 01/11/17 10:00 01/11/17 08:43 01/11/17 06:00 01/11/17 10:00 Intake & Output 01/08/17 01/09/17 01/10/17 01/11/17 23:59 23:59 23:59 23:59 Intake Total 160 750 960 50 Output Total 15 0 Balance 145 750 960 50 Weight 163 lb 0.016 oz 158 lb 3 oz 136 lb 2 oz 131 lb Gen: NAD at rest Heart: RRR Lung: clear to auscultation Abd: soft, nontender Ext: no edema CBC, BMP 01/11/17 05:20 01/11/17 05:20 Active Medications Atorvastatin Calcium (Lipitor -) 10 mg PO HS [facility] Last Admin: 01/10/17 20:59 Dose: 10 mg Diphenhydramine HCl (Benadryl -) 25 mg PO HS [facility] Fluticasone Propionate (Flonase -) 2 spray NS DAILY [facility] Last Admin: 01/11/17 10:45 Dose: 2 sprays Guaifenesin (Diabetic Tussin Dm -) 10 ml PO Q6H PRN PRN Reason: COUGH Last Admin: 01/10/17 21:10 Dose: 10 ml Hydralazine HCl (Apresoline Injection -) 10 mg IVPUSH Q6H PRN PRN Reason: HYPERTENSION Last Admin: 01/11/17 06:21 Dose: 10 mg Labetalol HCl (Normodyne -) 400 mg PO BID [facility] Last Admin: 01/11/17 10:33 Dose: 400 mg Losartan Potassium (Cozaar -) 100 mg PO DAILY [facility] Last Admin: 01/11/17 10:35 Dose: 100 mg Nifedipine (Procardia Xl -) 60 mg PO BID [facility] Last Admin: 01/11/17 10:33 Dose: 60 mg Pantoprazole Sodium (Protonix -) 40 mg PO DAILY [facility] Last Admin: 01/11/17 10:35 Dose: 40 mg Spironolactone (Aldactone -) 50 mg PO DAILY [facility] Last Admin: 01/11/17 10:35 Dose: 50 mg ASSESSMENT AND PLAN: Hypertensive Urgency resolved Acute on Chronic Diastolic Heart Failure Pulmonary HTN Pleural Effusions ESRD on HD Hyperkalemia Acute Respiratory Distress requiring NIPPV - HD per renal - titrate BP control with PO meds - nitrates as needed - BiPAP as needed to assist in work of breathing - O2 to keep SpO2 >90% - monitor lytes - DVT prophylaxis - can monitor on floor or d/c home
--- NOTE | 2017-01-11 17:45 | PN ---
Progress Note, Physician History of Present Illness: doing well - Current Medication List Current Medications: Active Medications Atorvastatin Calcium (Lipitor -) 10 mg PO HS [facility] Last Admin: 01/10/17 20:59 Dose: 10 mg Diphenhydramine HCl (Benadryl -) 25 mg PO HS [facility] Fluticasone Propionate (Flonase -) 2 spray NS DAILY [facility] Last Admin: 01/11/17 10:45 Dose: 2 sprays Guaifenesin (Diabetic Tussin Dm -) 10 ml PO Q6H PRN PRN Reason: COUGH Last Admin: 01/10/17 21:10 Dose: 10 ml Hydralazine HCl (Apresoline Injection -) 10 mg IVPUSH Q6H PRN PRN Reason: HYPERTENSION Last Admin: 01/11/17 06:21 Dose: 10 mg Labetalol HCl (Normodyne -) 400 mg PO BID [facility] Last Admin: 01/11/17 10:33 Dose: 400 mg Losartan Potassium (Cozaar -) 100 mg PO DAILY [facility] Last Admin: 01/11/17 10:35 Dose: 100 mg Nifedipine (Procardia Xl -) 60 mg PO BID [facility] Last Admin: 01/11/17 10:33 Dose: 60 mg Pantoprazole Sodium (Protonix -) 40 mg PO DAILY [facility] Last Admin: 01/11/17 10:35 Dose: 40 mg Spironolactone (Aldactone -) 50 mg PO DAILY [facility] Last Admin: 01/11/17 10:35 Dose: 50 mg - Objective Vital Signs: Vital Signs Temperature 98.6 F 01/11/17 02:00 Pulse Rate 79 01/11/17 12:00 Respiratory Rate 20 01/11/17 12:00 Blood Pressure 118/46 01/11/17 12:00 O2 Sat by Pulse Oximetry (%) 100 01/11/17 17:30 Constitutional: Yes: No Distress HENT: Yes: Atraumatic Neck: Yes: Supple Cardiovascular: Yes: Regular Rate and Rhythm Respiratory: Yes: CTA Bilaterally Gastrointestinal: Yes: Normal Bowel Sounds Extremities: Yes: WNL Neurological: Yes: Alert, Oriented Labs: CBC, BMP 01/11/17 05:20 01/11/17 05:20 INR, PTT INR 1.21 (0.82-1.09) H 01/09/17 05:00 Problem List - Problems (1) ESRD (end stage renal disease) on dialysis Code(s): N18.6 - END STAGE RENAL DISEASE Z99.2 - DEPENDENCE ON RENAL DIALYSIS (2) Shortness of breath Code(s): R06.02 - SHORTNESS OF BREATH (3) CKD (chronic kidney disease) Code(s): N18.9 - CHRONIC KIDNEY DISEASE, UNSPECIFIED (4) Acute on chronic diastolic (congestive) heart failure Code(s): I50.33 - ACUTE ON CHRONIC DIASTOLIC (CONGESTIVE) HEART FAILURE (5) Hypertensive emergency Code(s): I10 - ESSENTIAL (PRIMARY) HYPERTENSION (6) Hypertensive renal disease Code(s): I12.9 - HYPERTENSIVE CHRONIC KIDNEY DISEASE W STG 1-4/UNSP CHR KDNY (7) Anemia Code(s): D64.9 - ANEMIA, UNSPECIFIED Qualifiers: Anemia type: unspecified type Qualified Code(s): D64.9 - Anemia, unspecified Assessment/Plan 1.acute on chronic heart failure on diuretics better breathing...prn bipap 2.esrd on hd 3.htn better controlled doing well transfer to [facility] in am after hd
[2017-01-11] MEDS: ATORVASTATIN CA 10 MG TABLET (FP) PO SCH (21:19)
[2017-01-11] MEDS ORDERED: diphenhydrAMINE HCL 25 MG CAPSULE (FP) PO SCH (22:00)
[2017-01-12 06:33] VITALS: TEMP 98.8
[2017-01-12 08:26] LABS: BASOPHIL 1.4 % (0-2.0); EOSINOPHIL 5.7 % (0-4.5); MCH 26.9 pg (25.7-33.7); MCHC 31.6 g/dl (32.0-36.0); MEAN CELL VOLUME 85.1 fl (80-96); MEAN PLT VOLUME 8.6 fl (7.5-11.1); NEUTROPHILS 75.8 % (42.8-82.8); PLATELET COUNT 142 K/MM3 (134-434); WHITE BLOOD COUNT 7.3 K/mm3 (4.0-10.0)
[2017-01-12 08:43] LABS: CALCIUM 8.7 mg/dL (8.5-10.1); CREATININE 6.6 mg/dL (0.55-1.02); PHOSPHOROUS 7.2 mg/dL (2.5-4.9)
[2017-01-12] MEDS ORDERED: HEPARIN NA (PORCINE) 5,000 UNITS/ML 1ML VIAL IVPUSH ONE (10:30)
--- NOTE | 2017-01-12 10:45 | PN ---
Progress Note, Physician History of Present Illness: Cough without dyspnea or chest pain. BP elevated, meds held pre-HD. - Current Medication List Current Medications: Active Medications Atorvastatin Calcium (Lipitor -) 10 mg PO HS [facility] Last Admin: 01/11/17 21:19 Dose: 10 mg Diphenhydramine HCl (Benadryl -) 25 mg PO HS [facility] Last Admin: 01/11/17 21:19 Dose: 25 mg Fluticasone Propionate (Flonase -) 2 spray NS DAILY [facility] Last Admin: 01/11/17 10:45 Dose: 2 sprays Guaifenesin (Diabetic Tussin Dm -) 10 ml PO Q6H PRN PRN Reason: COUGH Last Admin: 01/10/17 21:10 Dose: 10 ml Hydralazine HCl (Apresoline Injection -) 10 mg IVPUSH Q6H PRN PRN Reason: HYPERTENSION Last Admin: 01/11/17 06:21 Dose: 10 mg Labetalol HCl (Normodyne -) 400 mg PO BID [facility] Last Admin: 01/11/17 21:19 Dose: 400 mg Losartan Potassium (Cozaar -) 100 mg PO DAILY [facility] Last Admin: 01/11/17 10:35 Dose: 100 mg Nifedipine (Procardia Xl -) 60 mg PO BID [facility] Last Admin: 01/11/17 21:19 Dose: 60 mg Pantoprazole Sodium (Protonix -) 40 mg PO DAILY [facility] Last Admin: 01/11/17 10:35 Dose: 40 mg Spironolactone (Aldactone -) 50 mg PO DAILY [facility] Last Admin: 01/11/17 10:35 Dose: 50 mg - Objective Vital Signs: Vital Signs Temperature 98.8 F 01/12/17 09:30 Pulse Rate 60 01/12/17 10:05 Respiratory Rate 18 01/12/17 10:05 Blood Pressure 185/60 01/12/17 10:05 O2 Sat by Pulse Oximetry (%) 100 01/12/17 09:04 Constitutional: Yes: No Distress, Calm Neck: Yes: Supple Cardiovascular: Yes: Regular Rate and Rhythm Respiratory: Yes: Regular, Diminished Gastrointestinal: Yes: Normal Bowel Sounds, Soft Edema: No Labs: CBC, BMP 01/12/17 08:00 01/12/17 08:00 INR, PTT INR 1.21 (0.82-1.09) H 01/09/17 05:00 Problem List - Problems (1) Hypertensive emergency Code(s): I10 - ESSENTIAL (PRIMARY) HYPERTENSION (2) ESRD (end stage renal disease) on dialysis Code(s): N18.6 - END STAGE RENAL DISEASE Z99.2 - DEPENDENCE ON RENAL DIALYSIS (3) Hypertensive renal disease Code(s): I12.9 - HYPERTENSIVE CHRONIC KIDNEY DISEASE W STG 1-4/UNSP CHR KDNY (4) End stage renal disease Code(s): N18.6 - END STAGE RENAL DISEASE (5) Hyperlipidemia Code(s): E78.5 - HYPERLIPIDEMIA, UNSPECIFIED Qualifiers: Qualified Code(s): E78.0 - Pure hypercholesterolemia (6) Acute on chronic diastolic (congestive) heart failure Code(s): I50.33 - ACUTE ON CHRONIC DIASTOLIC (CONGESTIVE) HEART FAILURE Assessment/Plan 1. Acute on chronic LV diastolic failure class II-III NYHA classification LV failure, resolving precipitated by 2. Hypertensive urgency resolved 3. Hyperlipidemia 4. ESRD on HD PLAN: 1. HD as per renal service 2. Continue Labetolol 400 bid 3. Continue Procardia 60 bid 4. Continue Cozaar 100 qd and Aldactone 50 qd 5. Continue Lipitor 10 qhs 6. Ambulate, d/c planning
[2017-01-12] MEDS: LOSARTAN POTASSIUM 50 MG TABLET (FP) PO SCH (11:00)
--- NOTE | 2017-01-12 11:49 | PN ---
Progress Note (short form) - Note Progress Note: Renal Follow up for ESRD and Hypertensive Urgency Pt seen and examined during dialysis BP elevated 200/100, getting AM BP meds during treatment Access with good function pt without complaints. Vital Signs Temperature 98.8 F 01/12/17 09:30 Pulse Rate 65 01/12/17 11:05 Respiratory Rate 18 01/12/17 11:05 Blood Pressure 193/70 01/12/17 11:05 O2 Sat by Pulse Oximetry (%) 100 01/12/17 09:04 Intake & Output 01/09/17 01/10/17 01/11/17 01/12/17 23:59 23:59 23:59 23:59 Intake Total 750 960 640 100 Output Total 0 Balance 750 960 640 100 Weight 158 lb 3 oz 136 lb 2 oz 131 lb 132 lb 6 oz Gen: NAD, awake and alert CVS: RRR, No M/R Lungs: CTA (anterior exam) Abd: soft NT/ND Ext: No edmea, clubbing or cyanosis Access: Left ARM AVF + thrill and bruit CBC, BMP 01/12/17 08:00 01/12/17 08:00 Current Medications Atorvastatin Calcium (Lipitor -) 10 mg PO HS [facility] Last Admin: 01/11/17 21:19 Dose: 10 mg Diphenhydramine HCl (Benadryl -) 25 mg PO HS [facility] Last Admin: 01/11/17 21:19 Dose: 25 mg Fluticasone Propionate (Flonase -) 2 spray NS DAILY [facility] Last Admin: 01/11/17 10:45 Dose: 2 sprays Guaifenesin (Diabetic Tussin Dm -) 10 ml PO Q6H PRN PRN Reason: COUGH Last Admin: 01/10/17 21:10 Dose: 10 ml Hydralazine HCl (Apresoline Injection -) 10 mg IVPUSH Q6H PRN PRN Reason: HYPERTENSION Last Admin: 01/11/17 06:21 Dose: 10 mg Labetalol HCl (Normodyne -) 400 mg PO BID [facility] Last Admin: 01/11/17 21:19 Dose: 400 mg Losartan Potassium (Cozaar -) 100 mg PO DAILY [facility] Last Admin: 01/11/17 10:35 Dose: 100 mg Nifedipine (Procardia Xl -) 60 mg PO BID [facility] Last Admin: 01/11/17 21:19 Dose: 60 mg Pantoprazole Sodium (Protonix -) 40 mg PO DAILY [facility] Last Admin: 01/11/17 10:35 Dose: 40 mg Spironolactone (Aldactone -) 50 mg PO DAILY [facility] Last Admin: 01/11/17 10:35 Dose: 50 mg A/P 71 year old Woman with PMhx of ESRD on HD (MWF), Difficult to control hypertension, DM, CKD related Anemia who presented with complaints of chest pressure and SOB that started last night. #Fluid overload in ESRD currently getting HD UF as tolerated to resume HD as outpatient on sunday upon discharge #Hypertensive Emergency/Urgency Continue Aldactone, Labetalol, Nifedipine, losaratan BP has been at goal while on meds #Abd Pain pt known to have mass lesion on ampulla GI follow up D/C planning Alf Mcmahan DO
--- NOTE | 2017-01-12 13:19 | PN ---
Progress Note (short form) - Note Progress Note: No acute events overnight. S/P HD. BP parameters improved. Intake & Output 01/09/17 01/10/17 01/11/17 01/12/17 23:59 23:59 23:59 23:59 Intake Total 750 960 640 100 Output Total 0 Balance 750 960 640 100 Weight 158 lb 3 oz 136 lb 2 oz 131 lb 132 lb 6 oz Last Vital Signs Temp Pulse Resp BP Pulse Ox 98.8 F 70 18 144/59 100 01/12/17 09:30 01/12/17 12:33 01/12/17 12:33 01/12/17 12:33 01/12/17 09:04 Active Medications Atorvastatin Calcium (Lipitor -) 10 mg PO HS [facility] Last Admin: 01/11/17 21:19 Dose: 10 mg Diphenhydramine HCl (Benadryl -) 25 mg PO HS [facility] Last Admin: 01/11/17 21:19 Dose: 25 mg Fluticasone Propionate (Flonase -) 2 spray NS DAILY [facility] Last Admin: 01/11/17 10:45 Dose: 2 sprays Guaifenesin (Diabetic Tussin Dm -) 10 ml PO Q6H PRN PRN Reason: COUGH Last Admin: 01/10/17 21:10 Dose: 10 ml Hydralazine HCl (Apresoline Injection -) 10 mg IVPUSH Q6H PRN PRN Reason: HYPERTENSION Last Admin: 01/11/17 06:21 Dose: 10 mg Labetalol HCl (Normodyne -) 400 mg PO BID [facility] Last Admin: 01/11/17 21:19 Dose: 400 mg Losartan Potassium (Cozaar -) 100 mg PO DAILY [facility] Last Admin: 01/11/17 10:35 Dose: 100 mg Nifedipine (Procardia Xl -) 60 mg PO BID [facility] Last Admin: 01/11/17 21:19 Dose: 60 mg Pantoprazole Sodium (Protonix -) 40 mg PO DAILY [facility] Last Admin: 01/11/17 10:35 Dose: 40 mg Spironolactone (Aldactone -) 50 mg PO DAILY [facility] Last Admin: 01/11/17 10:35 Dose: 50 mg Gen: NAD at rest Heart: RRR Lung: clear to auscultation Abd: soft, nontender Ext: no edema Laboratory Results - last 24 hr 01/12/17 01/12/17 08:00 08:00 WBC 7.3 RBC 4.00 Hgb 10.7 Hct 34.0 MCV 85.1 MCHC 31.6 L RDW 18.0 H Plt Count 142 MPV 8.6 Neutrophils % 75.8 Lymphocytes % 10.0 Monocytes % 7.1 Eosinophils % 5.7 H Basophils % 1.4 Sodium 138 Potassium 5.0 Chloride 96 L Carbon Dioxide 28 Anion Gap 14 BUN 48 H D Creatinine 6.6 H D Random Glucose 190 H Calcium 8.7 Phosphorus 7.2 H D ASSESSMENT AND PLAN: Hypertensive Urgency resolved Acute on Chronic Diastolic Heart Failure Pulmonary HTN Pleural Effusions ESRD on HD Hyperkalemia Acute Respiratory Distress requiring NIPPV - HD per renal - titrate BP control with PO meds - can monitor on floor or d/c home Dr Haynes
[2017-01-12] MEDS: SPIRONOLACTONE 25 MG TABLET (FP) PO SCH (13:48)
[2017-01-12 13:49] VITALS: BP 164/62; PULSE 66
[2017-01-12] MEDS: FLUTICASONE PROP 0.05% 16 GM NASAL SPRAY NS SCH (13:49)
[2017-01-12] MEDS: NIFEdipine E.R 60 MG TABLET (UD) PO SCH (13:50)
[2017-01-12] MEDS: LABETALOL HCL 200 MG TABLET (FP) PO SCH (13:51)
[2017-01-12] MEDS: PANTOPRAZOLE 40 MG TABLET (FP) PO SCH (13:51)
--- NOTE | 2017-01-12 20:44 | DS ---
Physical Examination Vital Signs: Vital Signs Temperature 98.8 F 01/12/17 09:30 Pulse Rate 66 01/12/17 13:25 Respiratory Rate 18 01/12/17 13:25 Blood Pressure 164/62 01/12/17 13:25 O2 Sat by Pulse Oximetry (%) 100 01/12/17 09:04 Labs: CBC, BMP 01/12/17 08:00 01/12/17 08:00 Discharge Summary Reason For Visit: HYPERTENSIVE RENAL DIS,END STAGE PIPO FAIL,DIALYSIS - Instructions Disposition: HOME - Home Medications Comprehensive Discharge Medication List: Ambulatory Orders Calcium Acetate [Phoslo -] 667 mg PO TID 01/08/17 Losartan Potassium 100 mg PO DAILY 01/08/17 Nifedipine ER [Procardia XL -] 60 mg PO BID 01/08/17 Pravastatin Sodium 20 mg PO DAILY 01/08/17 Spironolactone 50 mg PO DAILY 01/08/17 Torsemide 40 mg PO DAILY 01/08/17 Labetalol HCl [Normodyne -] 400 mg PO BID #0 tablet 01/11/17 OR HOME
== END 2017-01-12 15:06 | disposition home or self-care (01) | DRG 199 ==
LOC: JER 07:02 → JERBED 09:52 → JICU 11:50
PROVIDERS: ADMIT Internal Medicine; ATTEND Internal Medicine
DX: I16.0 Hypertensive urgency (principal); E11.9 Type 2 diabetes mellitus without complications; D64.9 Anemia, unspecified; M19.90 Unspecified osteoarthritis, unspecified site; E87.5 Hyperkalemia; D63.1 Anemia in chronic kidney disease; E78.5 Hyperlipidemia, unspecified; M54.5 Low back pain; I27.2 Other secondary pulmonary hypertension; I13.2 Hypertensive heart and chronic kidney disease with heart failure and with stage 5 chronic kidney disease, or end stage renal disease; N18.6 End stage renal disease; I50.33 Acute on chronic diastolic (congestive) heart failure; J96.01 Acute respiratory failure with hypoxia; Z99.2 Dependence on renal dialysis
CPT/HCPCS: 36415; 71010-TC; 80048; 80053; 82550; 83605; 83735; 83880; 84100; 84484; 85025; 85610; 87040; 87086; 93005; 93010; 94660; 99285-25; J0885; J1644

== ENCOUNTER 2017-02-07 19:37 | Inpatient (IN) | payer OTHER ==
[2017-02-07 20:16] VITALS: BMI 26.5
[2017-02-07 20:31] LABS: BASOPHIL 1.2 % (0-2.0); EOSINOPHIL 3.5 % (0-4.5); MCH 27.4 pg (25.7-33.7); MCHC 32.5 g/dl (32.0-36.0); MEAN CELL VOLUME 84.3 fl (80-96); MEAN PLT VOLUME 8.9 fl (7.5-11.1); NEUTROPHILS 71.7 % (42.8-82.8); PLATELET COUNT 102 K/MM3 (134-434); RDW 19.2 % (11.6-15.6); WHITE BLOOD COUNT 5.9 K/mm3 (4.0-10.0)
[2017-02-07] MEDS ORDERED: hydrALAZINE HCL 20 MG/ML VIAL IVPUSH ONE ×2 (20:32→21:03)
--- NOTE | 2017-02-07 20:32 | PDOC ---
History of Present Illness - General History Source: Patient Exam Limitations: No Limitations - History of Present Illness Initial Comments: 02/07/17 21:13 The patient is a 71 year old female with significant past medical history of ESRD on hemodialysis MWF, CHF, hypertension, hyperlipidemia, and diabetes who presents to the ED BIBA sent from dialysis center for elevated blood pressure prior to arrival. Patient reports she completed her dialysis session (3 hours and 45 minutes) today and upon discharge her vitals were checked when it was noted that her blood pressure was elevated. At that time, she had complaints of a mild headache that resolved on its own. At time of evaluation, patient has no complaints. She denies diaphoresis, lightheadedness, SOB. chest pain, jaw pain, shoulder pain, arm pain, leg swelling, nausea, or vomiting. She also denies dizziness or changes in vision. The patient denies fever, chills, cough, abdominal pain, and diarrhea. Allergies: NKDA Social History: No alcohol, tobacco, or drug use reported. Past Surgical History: AV Fistula/Graft on LUE PCP: None reported <Gloria Huber - Last Filed: 02/07/17 21:14> - General History Source: Patient <Jad Hubbard - Last Filed: 02/08/17 19:45> - General Chief Complaint: Blood Pressure Problem Stated Complaint: HIGH BLOOD PRESSURE Time Seen by Provider: 02/07/17 20:27 Past History <Gloria Huber - Last Filed: 02/07/17 21:14> - Past Medical History Anemia: Yes Asthma: No Cancer: No Cardiac Disorders: No CVA: No COPD: No CHF: Yes Dementia: No Diabetes: Yes Dialysis: Yes GI Disorders: No Disorders: Yes (esrd, dialysis) HTN: Yes Hypercholesterolemia: Yes Liver Disease: Yes Seizures: No Thyroid Disease: No - Surgical History Abdominal Surgery: Yes Appendectomy: No Cardiac Surgery: No Cholecystectomy: No Lung Surgery: No Neurologic Surgery: No Orthopedic Surgery: No - Immunization History Immunization Up to Date: Yes - Psycho/Social/Smoking Cessation Hx Anxiety: No Suicidal Ideation: No Smoking History: Never smoked Have you smoked in the past 12 months: No Number of Cigarettes Smoked Daily: 0 Information on smoking cessation initiated: No Hx Alcohol Use: No Drug/Substance Use Hx: No Substance Use Type: None Hx Substance Use Treatment: No <Jad Hubbard - Last Filed: 02/08/17 19:45> - Past Medical History Allergies/Adverse Reactions: Allergies Allergy/AdvReac Type Severity Reaction Status Date / Time No Known Allergies Allergy Verified 02/07/17 20:14 Home Medications: Ambulatory Orders Calcium Acetate [Phoslo -] 667 mg PO TID 01/08/17 Losartan Potassium 100 mg PO DAILY 01/08/17 Nifedipine ER [Procardia XL -] 60 mg PO BID 01/08/17 Pravastatin Sodium 20 mg PO DAILY 01/08/17 Spironolactone 50 mg PO DAILY 01/08/17 Torsemide 20 mg PO BID 01/08/17 Labetalol HCl [Normodyne -] 400 mg PO BID #0 tablet 01/11/17 Furosemide [Lasix] 80 mg PO DAILY 02/08/17 Review of Systems - Review of Systems Able to Perform ROS?: Yes Comments:: 02/07/17 21:13 CONSTITUTIONAL: Absent: fever, chills, diaphoresis, generalized weakness, malaise, loss of appetite HEENT: Absent: rhinorrhea, nasal congestion, throat pain, throat swelling, difficulty swallowing, mouth swelling, ear pain, eye pain, visual Changes CARDIOVASCULAR: +elevated blood pressure Absent: chest pain, syncope, palpitations, irregular heart rate, lightheadedness, peripheral edema RESPIRATORY: Absent: cough, shortness of breath, dyspnea with exertion, orthopnea, wheezing, stridor, hemoptysis GASTROINTESTINAL: Absent: abdominal pain, abdominal distension, nausea, vomiting, diarrhea, constipation, melena, hematochezia GENITOURINARY: Absent: dysuria, frequency, urgency, hesitancy, hematuria, flank pain, genital pain MUSCULOSKELETAL: Absent: myalgia, arthralgia, joint swelling SKIN: Absent: rash, itching, pallor NEUROLOGIC: +mild headache Absent: focal weakness or paresthesias, dizziness, unsteady gait , seizure, mental status changes, bladder or bowel incontinence <Gloria Huber - Last Filed: 02/07/17 21:14> *Physical Exam - Vital Signs Last Vital Signs Temp Pulse Resp BP Pulse Ox 97.1 F L 64 20 223/70 100 02/07/17 20:14 02/07/17 21:03 02/07/17 20:14 02/07/17 21:03 02/07/17 21:03 - Physical Exam Comments: 02/07/17 21:14 GENERAL: Well developed, well nourished. Awake and alert. No acute distress. HEENT: Normocephalic, atraumatic. PERRLA, EOMI. No conjunctival pallor. Sclera are non- icteric. Moist mucous membranes. Oropharynx is clear. NECK: Supple. Full ROM. No JVD. Carotid pulses 2+ and symmetric, without bruits. No thyromegaly. No lymphadenopathy. CARDIOVASCULAR: Regular rate and rhythm. No murmurs, rubs, or gallops. PULMONARY: No evidence of respiratory distress. Lungs clear to auscultation bilaterally. No wheezing, rales or rhonchi. ABDOMINAL: Soft. Non-tender. Non-distended. No rebound or guarding. No organomegaly. Normoactive bowel sounds. MUSCULOSKELETAL Normal range of motion at all joints. No bony deformities or tenderness. No CVA tenderness. EXTREMITIES: No cyanosis. No clubbing. No edema. No calf tenderness. AV shunt on left upper extremity with + bruit and thrills. SKIN: Warm and dry. Normal capillary refill. No rashes. No jaundice. NEUROLOGICAL: Alert, awake, appropriate. Cranial nerves 2-12 intact. Moving all extremities. No gross focal neurological deficits. <Gloria Huber - Last Filed: 02/07/17 21:14> - Vital Signs Last Vital Signs Temp Pulse Resp BP Pulse Ox 97.1 F L 62 20 221/74 92 L 02/07/17 20:14 02/07/17 20:14 02/07/17 20:14 02/07/17 20:14 02/07/17 20:14 <Jad Hubbard - Last Filed: 02/08/17 19:45> Heart Score/ECG Review - ECG Impressions Comment:: 02/07/17 21:03 NSR @63bpm Possible L atrial enlargement Incomplete RBBB L anterior fascicular block L ventricular hypertrophy T wave abnormality, consider lateral ischemia Abnormal ECG <Gloria Huber - Last Filed: 02/07/17 21:14> ED Treatment Course - LABORATORY CBC & Chemistry Diagram: 02/07/17 20:26 02/07/17 20:26 - ADDITIONAL ORDERS Additional order review: Laboratory Results 02/07/17 20:26 INR 1.09 02/07/17 20:26 RBC 4.48 MCV 84.3 MCHC 32.5 RDW 19.2 H MPV 8.9 Neutrophils % 71.7 Lymphocytes % 11.2 Monocytes % 12.4 H Eosinophils % 3.5 Basophils % 1.2 - Medications Given in the ED: ED Medications Discontinued Medications Generic Name Dose Route Start Last Admin Trade Name Ignacio PRN Reason Stop Dose Admin Hydralazine HCl 10 mg 02/07/17 20:32 02/07/17 20:43 Apresoline Injection - IVPUSH 02/07/17 20:33 10 mg ONCE ONE Administration <Gloria Huber - Last Filed: 02/07/17 21:14> - LABORATORY CBC & Chemistry Diagram: 02/08/17 04:21 02/08/17 04:21 <Jad Hubbard - Last Filed: 02/08/17 19:45> Medical Decision Making - Medical Decision Making 02/08/17 19:42 Dr. Hubbard: The scribe's documentation has been prepared under my direction and personally reviewed by me in its entirery. I confirm that the note above accurately reflects all work, treatment, procedures, and medical decision making performed by me. Patient's admitted for uncontrolled HTN despite 3 hours 45mins of hemodialysis. Pt denies any cp or ZENDEJAS. Pt on IV medications, admitted to tele <Jad Hubbard - Last Filed: 02/08/17 19:45> *DC/Admit/Observation/Transfer - Attestations Scribe Attestion: 02/07/17 21:14 Documentation prepared by Gloria Huber, acting as medical records analyst for Jad Hubbard MD <Gloria Huber - Last Filed: 02/07/17 21:14> - Discharge Dispostion Admit: Yes <Jad Hubbard - Last Filed: 02/08/17 19:45> Diagnosis at time of Disposition: Asymptomatic hypertensive urgency
[2017-02-07] MEDS ORDERED: hydrALAZINE HCL 20 MG/ML VIAL ONE ×2 (20:34→21:08)
[2017-02-07 20:52] LABS: INR 1.09 (0.82-1.09)
[2017-02-07 21:23] LABS: ALBUMIN 4.1 g/dl (3.4-5.0); CALCIUM 8.8 mg/dL (8.5-10.1); CREATININE 2.8 mg/dL (0.55-1.02)
[2017-02-07 21:27] LABS: BILIRUBIN,TOTAL 0.7 mg/dL (0.2-1.0); TOT PROT 7.9 g/dl (6.4-8.2); TROPONIN I 0.05 ng/ml (0.00-0.05)
[2017-02-07] MEDS ORDERED: LABETALOL HCL 5 MG/1 ML (100MG/20 ML VIAL) IVPUSH ONE (21:37)
[2017-02-07] MEDS ORDERED: LABETALOL HCL 5 MG/1 ML (200MG/40ML VIAL) IVPB ONE (21:43)
--- NOTE | 2017-02-08 01:11 | PN ---
<Cara Smalls - Last Filed: 02/08/17 01:06> Teaching Attending Note Name of Resident: Danielle Conti Problem List - Problems (1) Hypertensive urgency Assessment/Plan: Labetalol 20mg IVPB q6 prn Continue home medications Losartan 100 mg PO DAILY Nifedipine ER 60 mg PO BID Spironolactone 50 mg PO DAILY Torsemide 40 mg PO DAILY Code(s): I10 - ESSENTIAL (PRIMARY) HYPERTENSION (2) Diabetes Assessment/Plan: Renal and diabetic diet RISS FS ACHS Code(s): E11.9 - TYPE 2 DIABETES MELLITUS WITHOUT COMPLICATIONS (3) ESRD (end stage renal disease) on dialysis Assessment/Plan: Nephrology consult for HD Code(s): N18.6 - END STAGE RENAL DISEASE Z99.2 - DEPENDENCE ON RENAL DIALYSIS (4) Thrombocytopenia Assessment/Plan: HIT antibody Hold DVT prophylaxis with anticoagulation SCDs Code(s): D69.6 - THROMBOCYTOPENIA, UNSPECIFIED Critical Care Total Critical Care Time (in minutes): 35 Critical Care Statement: The care of this patient involved high complexity decision making to prevent further life threatening deterioration of the patient 's condition and/or to evalute & treat vital organ system(s) failure or risk of failure. <Carlotta Vásquez - Last Filed: 02/08/17 02:11> Teaching Attending Note ATTENDING PHYSICIAN STATEMENT I saw and evaluated the patient. I reviewed the resident's note and discussed the case with the resident. I agree with the resident's findings and plan as documented. SUBJECTIVE: 71 yo F presents BIBA from dialysis center for elevated blood pressure prior to arrival at [place] ED. Patient reports that she completed her dialysis session today and her high blood pressure was noted when they check her vitals at the end of the appointment. She notes that at the time she had a mild headache that has since resolved. She endorses mild nausea due to not eating today. Pt reports she has no urinary output. She reports she is compliant with her medications and reports to dialysis treatments on MWF. Patient notes that when she takes her BP at home prior to taking her medications it is around 189 systolic and 140 after medication. Denies: fever, chills, cough, chest pain, palpitations and abdominal pain. PMHx: ESRD on hemodialysis MWF, CHF, hypertension, hyperlipidemia, diabetes, pleural effusion OBJECTIVE: Last Vital Signs Temp Pulse Resp BP Pulse Ox 97.1 F L 71 17 192/87 100 02/07/17 20:14 02/07/17 22:05 02/07/17 22:05 02/07/17 22:05 02/07/17 22:05 GENERAL: Awake, alert, and fully oriented, in no acute distress HEENT: Atraumatic. PERRLA, EOMI. Moist mucosa. Positive JVD. LUNGS: No distress, speaks full sentences, clear to auscultation bilaterally HEART: Regular rate and rhythm, normal S1 and S2, murmur present, rubs or gallops, peripheral pulses normal and equal bilaterally. ABDOMEN: Soft, nontender, normoactive bowel sounds. No guarding, no rebound. No masses EXTREMITIES: Normal inspection, Normal range of motion, trace edema in LE. No clubbing or cyanosis. NEUROLOGICAL: Cranial nerves II through XII grossly intact. Normal speech, normal gait, no focal sensorimotor deficits SKIN: Warm, Dry, normal turgor, no rashes or lesions noted. CBCD WBC 5.9 K/mm3 (4.0-10.0) 02/07/17 20:26 RBC 4.48 M/mm3 (3.60-5.2) 02/07/17 20:26 Hgb 12.3 GM/dL (10.7-15.3) D 02/07/17 20:26 Hct 37.8 % (32.4-45.2) 02/07/17 20:26 MCV 84.3 fl (80-96) 02/07/17 20:26 MCHC 32.5 g/dl (32.0-36.0) 02/07/17 20:26 RDW 19.2 % (11.6-15.6) H 02/07/17 20:26 Plt Count 102 K/MM3 (134-434) L D 02/07/17 20:26 MPV 8.9 fl (7.5-11.1) 02/07/17 20:26 CMP Sodium 137 mmol/L (136-145) 02/07/17 20:26 Potassium 3.7 mmol/L (3.5-5.1) D 02/07/17 20:26 Chloride 95 mmol/L (98-107) L 02/07/17 20:26 Carbon Dioxide 28 mmol/L (21-32) 02/07/17 20:26 Anion Gap 14 (8-16) 02/07/17 20:26 BUN 10 mg/dL (7-18) D 02/07/17 20:26 Creatinine 2.8 mg/dL (0.55-1.02) H D 02/07/17 20:26 Creat Clearance w eGFR 16.66 (>60) 02/07/17 20:26 Calcium 8.8 mg/dL (8.5-10.1) 02/07/17 20:26 Total Bilirubin 0.7 mg/dL (0.2-1.0) 02/07/17 20:26 AST 10 U/L (15-37) L D 02/07/17 20:26 ALT 17 U/L (12-78) D 02/07/17 20:26 Alkaline Phosphatase 117 U/L (45-117) 02/07/17 20:26 Total Protein 7.9 g/dl (6.4-8.2) 02/07/17 20:26 Albumin 4.1 g/dl (3.4-5.0) 02/07/17 20:26 Documentation prepared by Carlotta Vásquez, acting as biomedical engineering technologist for Cara Smalls M.D.
--- NOTE | 2017-02-08 01:12 | HP ---
CHIEF COMPLAINT: " Sent from dialysis for high blood pressure" PCP: Dr. Bills HISTORY OF PRESENT ILLNESS: Patient is a 71-year-old Indonesian speaking female was sent from the dialysis center due to high blood pressure. As per the patient, she completed dialysis session (3 hours and 45 minutes). Post dialysis, her blood pressure was elevated. Hence was sent to the ED. Had mild headache but resolved without any medication. Denies loc, tingling, numbness, chest pain, sob, cough, palpitation, abdominal pain, nausea or vomiting. Has no urine output. Bowel movements normal. Sleep/Appetite normal. Patient was resting comfortably in the ED. No complaints. Blood pressure is still elevated and didn't improve with IV Labetolol and IV Hydralazine ER course was notable for: (1) Afebrile, High blood pressure 221/74 mmHg; Spo2-92%; thrombocytopenia 102; creatinine 2.8/16.6 (2) EKG (3) Labetolol 10mg; Hydralazine 10mg x2 Recent Travel: PAST MEDICAL HISTORY: hypertension, end-stage renal disease on hemodialysis Sunday, anemia, DM, Chronic back pain, AVF left upper extremity PAST SURGICAL HISTORY: As mentioned above Social History: Smoking: Denies Alcohol:Denies Drugs: Denies Family History: Unknown Allergies No Known Allergies Allergy (Verified 02/07/17 20:14) HOME MEDICATIONS: Home Medications Medication Instructions Recorded Calcium Acetate [Phoslo -] 667 mg PO TID 01/08/17 Losartan Potassium 100 mg PO DAILY 01/08/17 Nifedipine ER [Procardia XL -] 60 mg PO BID 01/08/17 Pravastatin Sodium 20 mg PO DAILY 01/08/17 Spironolactone 50 mg PO DAILY 01/08/17 Torsemide 40 mg PO DAILY 01/08/17 Labetalol HCl [Normodyne -] 400 mg PO BID #0 tablet 01/11/17 REVIEW OF SYSTEMS CONSTITUTIONAL: Absent: fever, chills, diaphoresis, generalized weakness, malaise, loss of appetite, weight change HEENT: Absent: rhinorrhea, nasal congestion, throat pain, throat swelling, difficulty swallowing, mouth swelling, ear pain, eye pain, visual changes CARDIOVASCULAR: Absent: chest pain, syncope, palpitations, irregular heart rate, lightheadedness , peripheral edema RESPIRATORY: Absent: cough, shortness of breath, dyspnea with exertion, orthopnea, wheezing, stridor, hemoptysis GASTROINTESTINAL: Absent: abdominal pain, abdominal distension, nausea, vomiting, diarrhea, constipation, melena, hematochezia GENITOURINARY: Absent: dysuria, frequency, urgency, hesitancy, hematuria, flank pain, genital pain MUSCULOSKELETAL: Absent: myalgia, arthralgia, joint swelling, back pain, neck pain SKIN: Absent: rash, itching, pallor HEMATOLOGIC/IMMUNOLOGIC: Absent: easy bleeding, easy bruising, lymphadenopathy, frequent infections ENDOCRINE: Absent: unexplained weight gain, unexplained weight loss, heat intolerance, cold intolerance NEUROLOGIC: Absent: headache, focal weakness or paresthesias, dizziness, unsteady gait, seizure, mental status changes, bladder or bowel incontinence PSYCHIATRIC: Absent: anxiety, depression, suicidal or homicidal ideation, hallucinations. PHYSICAL EXAMINATION Vital Signs - 24 hr 02/07/17 02/07/17 02/07/17 20:14 21:03 21:50 Temperature 97.1 F L Pulse Rate 62 Pulse Rate [ 64 66 Radial] Respiratory 20 17 Rate Blood Pressure 221/74 Blood Pressure 223/70 202/68 [Right Arm] O2 Sat by Pulse 92 L 100 100 Oximetry (%) 02/07/17 02/07/17 21:51 22:05 Temperature Pulse Rate Pulse Rate [ 70 71 Radial] Respiratory 16 17 Rate Blood Pressure Blood Pressure 203/70 192/87 [Right Arm] O2 Sat by Pulse 100 100 Oximetry (%) GENERAL: Elderly female, lying comfortably in bed, Awake, alert, and fully oriented, in no acute distress. HEAD: Normal with no signs of trauma. EYES: EOM intact, no pallor or icterus. EARS, NOSE, THROAT: Ears normal, . Moist mucous membranes. NECK: Supple. LUNGS: Breath sounds equal, clear to auscultation bilaterally. No wheezes, and no crackles. No accessory muscle use. HEART: Regular rate and rhythm, normal S1 and S2 without murmur, rub or gallop. ABDOMEN: Soft, nontender, not distended, normoactive bowel sounds, no guarding, no rebound, no masses. No hepatomegaly or splenomegaly. MUSCULOSKELETAL: Normal range of motion at all joints. No bony deformities or tenderness. No CVA tenderness. UPPER EXTREMITIES: 2+ pulses, warm, well-perfused. No cyanosis. No clubbing. No peripheral edema, left upper arm fistula-Thrill LOWER EXTREMITIES: 2+ pulses, warm, well-perfused. No calf tenderness. B/L pitting edema. NEUROLOGICAL: Cranial nerves II-XII intact. Normal speech. Gait not observed. PSYCHIATRIC: Cooperative. Good eye contact. Appropriate mood and affect. SKIN: Warm, dry, normal turgor, no rashes or lesions noted, normal capillary refill. Laboratory Results - last 24 hr 02/07/17 02/07/17 02/07/17 20:26 20:26 20:26 WBC 5.9 RBC 4.48 Hgb 12.3 D Hct 37.8 MCV 84.3 MCHC 32.5 RDW 19.2 H Plt Count 102 L D MPV 8.9 Neutrophils % 71.7 Lymphocytes % 11.2 Monocytes % 12.4 H Eosinophils % 3.5 Basophils % 1.2 INR 1.09 Sodium 137 Potassium 3.7 D Chloride 95 L Carbon Dioxide 28 Anion Gap 14 BUN 10 D Creatinine 2.8 H D Creat Clearance w eGFR 16.66 Random Glucose 165 H Calcium 8.8 Total Bilirubin 0.7 AST 10 L D ALT 17 D Alkaline Phosphatase 117 Creatine Kinase 72 Troponin I 0.05 Total Protein 7.9 Albumin 4.1 ASSESSMENT/PLAN: Patient is a 71 year old female with significant past medical history of hypertension, end-stage renal disease on hemodialysis Sunday, anemia, DM, Chronic back pain, AVF left upper extremity was sent from the dialysis center for evaluation of high blood pressure. # Hypertensive urgency Patient was sent from dialysis center due to high blood pressure after completion of dialysis (3 hours and 45 minutes) On arrival, patient was Afebrile, High blood pressure 221/74 mmHg; Spo2-92%; thrombocytopenia 102; In the ED, patient received Labetolol 10mg; Hydralazine 10mg x2 Admitted in Telemetry Continous cardiac monitoring Started Nitro drip @ 10mcg/hr Labetolol 200mg PO Q6H PRN Monitor blood pressure Maintain blood pressure above 180/60 ( Do not decrease by > 25 % in 24 hours) # ESRD on dialysis (MWF) creatinine 2.8/16.6------->3.8/11.1 Renal consult placed Renal diet # Rising troponin-r/o ACS: Likely demand ischemia 0.05---->0.06-----> repeat after 6 hours. # Anemia Most likely due to ESRD # Thrombocytopenia Since patient is under dialysis and heparin used during dialysis could have caused HIT ? HIT antibody ordered # Diabetes Mellitus Insulin sliding scale Finger stick glucose monitoring Watch for Hypoglycemic episodes Diabetic diet # FEN Not on IV fluids Electrolytes to be repeated in am Diabetic diet # Prophylaxis: For DVT: On SCDs For GI: Not indicated # Code Status: Full Code # Dispo: Admitted in Tele. Duration of stay unknown. Illness, Investigation and Plan of care explained to the patient. She verbalized understanding. Case seen and discussed with Dr. Smalls. Visit type - Emergency Visit Emergency Visit: Yes ED Registration Date: 02/08/17 Care time: The patient presented to the Emergency Department on the above date and was hospitalized for further evaluation of their emergent condition. - New Patient This patient is new to me today: Yes Date on this admission: 02/08/17 - Critical Care Critical Care patient: No
[2017-02-08] MEDS ORDERED: NITROGLYCERIN 25MG/D5W 250ML 250 ML IVPB ONE (01:32)
[2017-02-08] MEDS: NITROGLYCERIN 25MG/D5W 250ML 250 ML IVPB SCH (01:49)
[2017-02-08] MEDS ORDERED: LABETALOL HCL 200 MG TABLET (FP) PO PRN (02:06)
[2017-02-08 04:37] LABS: EOSINOPHIL 4.4 % (0-4.5); MCH 27.5 pg (25.7-33.7); MCHC 32.9 g/dl (32.0-36.0); MEAN CELL VOLUME 83.4 fl (80-96); MEAN PLT VOLUME 8.5 fl (7.5-11.1); NEUTROPHILS 69.7 % (42.8-82.8); PLATELET COUNT 104 K/MM3 (134-434); RDW 19.5 % (11.6-15.6); WHITE BLOOD COUNT 5.7 K/mm3 (4.0-10.0)
[2017-02-08] MEDS ORDERED: LABETALOL HCL 100 MG TABLET (FP) ONE (04:39)
[2017-02-08 05:00] LABS: ALBUMIN 3.9 g/dl (3.4-5.0); BILIRUBIN,TOTAL 0.5 mg/dL (0.2-1.0); CALCIUM 8.7 mg/dL (8.5-10.1); CREATININE 3.8 mg/dL (0.55-1.02); MAGNESIUM 2.3 mg/dL (1.8-2.4); PHOSPHOROUS 4.8 mg/dL (2.5-4.9); TOT PROT 7.4 g/dl (6.4-8.2)
[2017-02-08] MEDS: INSULIN SLIDING SCALE (NOVOLOG) 1 VIAL SQ SCH ×4 (08:31→22:34)
[2017-02-08] MEDS ORDERED: INSULIN (NOVOLOG) ASPART 100 UNITS/ML 10ML VIAL ONE ×3 (08:32→18:30)
[2017-02-08] MEDS: LOSARTAN POTASSIUM 50 MG TABLET (FP) PO SCH (10:17)
[2017-02-08] MEDS: SPIRONOLACTONE 25 MG TABLET (FP) PO SCH (10:17)
[2017-02-08] MEDS: TORSEMIDE 20 MG TABLET (FP) PO SCH (10:17)
[2017-02-08] MEDS: CALCIUM ACETATE 667 MG CAPSULE (FP) PO SCH ×3 (10:17→18:33)
[2017-02-08] MEDS: NIFEdipine E.R 60 MG TABLET (UD) PO SCH ×2 (10:18→22:36)
--- NOTE | 2017-02-08 13:04 | CONSULT ---
Consult Consult Specialty:: Nephrology ( Scott/ Martir) Referred by:: Dr. Recio Reason for Consultation:: This is a 71 y/o female admitted with extremely elevated BP. The patient has had similar admissions in the past. She was recently d/c from the hospital with well controlled BP. But her BP remained elevated all through her dialysis yesterday. Was having some headache. No chestpain. No weakness, shortness of breath, or seizures. The patient is anuric , on HD three times/ week. The patient nhas h/o A Fib, Thrombocytopenia, Hypertension, DM 2, Anemia, AVF Left upper extremity, Ch. back ache. - History Source History Provided By: Patient, Medical Record Limitations to Obtaining History: Language Barrier - Past Medical History Cardio/Vascular: Yes: AFIB, CHF, HTN, Hyperlipdemia Renal/: Yes: Renal Failure, Hemodialysis ...: No Heme/Onc: Yes: Anemia Musculoskeletal: Yes: Chronic low back pain Endocrine: Yes: Diabetes Mellitus - Past Surgical History Past Surgical History: Yes: AV Fistula/Graft - Alcohol/Substance Use Hx Alcohol Use: No - Smoking History Smoking history: Never smoked Have you smoked in the past 12 months: No Aproximately how many cigarettes per day: 0 - Social History ADL: Independent History of Recent Travel: No Home Medications - Allergies Allergies/Adverse Reactions: Allergies Allergy/AdvReac Type Severity Reaction Status Date / Time No Known Allergies Allergy Verified 02/07/17 20:14 - Home Medications Home Medications: Ambulatory Orders Calcium Acetate [Phoslo -] 667 mg PO TID 01/08/17 Losartan Potassium 100 mg PO DAILY 01/08/17 Nifedipine ER [Procardia XL -] 60 mg PO BID 01/08/17 Pravastatin Sodium 20 mg PO DAILY 01/08/17 Spironolactone 50 mg PO DAILY 01/08/17 Torsemide 20 mg PO BID 01/08/17 Labetalol HCl [Normodyne -] 400 mg PO BID #0 tablet 01/11/17 Furosemide [Lasix] 80 mg PO DAILY 02/08/17 Review of Systems - Review of Systems Constitutional: denies: No Symptoms, Chills, Diaphoresis, Fever, Lethargy, Loss of Appetite, Malaise, Night Sweats, Unintentional Wgt. Loss, Weakness, Other Eyes: denies: No Symptoms, Blind Spots, Blurred Vision, Double Vision, Eye Pain , Floaters, Photophobia, Recent Change in Vision, Other Neck: reports: Stiffness Respiratory: denies: Cough, Exercise Intolerance, Hemoptysis, Orthopnea, PND, Snoring, SOB, SOB on Exertion, Wheezing, Other Gastrointestinal: reports: Bloating Musculoskeletal: reports: Back Pain, Muscle Pain Neurological: denies: No Symptoms, Change in LOC, Change in Speech, Confusion, Dizziness, Headache, Incoordination, Numbness, Parasthesia, Pre-Existing Deficit , Seizure, Syncope, Tremors, Unsteady Gait, Weakness, Other Physical Exam Vital Signs: Vital Signs Temperature 98.0 F 02/08/17 12:23 Pulse Rate 70 02/08/17 12:23 Respiratory Rate 18 02/08/17 12:23 Blood Pressure 121/99 02/08/17 12:23 O2 Sat by Pulse Oximetry (%) 100 02/08/17 12:23 Constitutional: Yes: No Distress Eyes: No: WNL, Conjunctiva Clear, EOM Intact, Cataracts, Diplopia, Occular Prosthesis, PERRL, Ptosis, Sclera Icterus, Tearing, Other HENT: No: WNL, Atraumatic, Normocephalic, Drooling, Epistaxis, Hoarseness, Nasal Congestion, Pharyngeal Erythema, Rhinnorhea, Thrush, Tonsillar Exudate, Other Cardiovascular: Yes: S1, S2 Respiratory: Yes: Regular, CTA Bilaterally, Diminished Gastrointestinal: No: WNL, Normal Bowel Sounds, Soft, Abdomen, Obese, Ascites, Distention, Hematemesis, Hemorrhoids, Hepatomegaly, Hernia, Hyperactive Bowel Sounds, Hypoactive Bowel Sounds, Melena, Palpable Mass, Pulsatile Mass, Rectal Bleeding, Splenomegaly, Tenderness, Tenderness, Epigastrium, Tenderness, Rebound , Vomiting, Other Renal/: Yes: Anuria (Patient on HD) Extremities: Yes: Other (AVF left UE) Neurological: Yes: Alert, Oriented Labs: CBC, BMP 02/08/17 04:21 02/08/17 04:21 Problem List - Problems (1) Asymptomatic hypertensive urgency Code(s): I16.0 - HYPERTENSIVE URGENCY (2) Thrombocytopenia Code(s): D69.6 - THROMBOCYTOPENIA, UNSPECIFIED (3) Acute on chronic diastolic (congestive) heart failure Code(s): I50.33 - ACUTE ON CHRONIC DIASTOLIC (CONGESTIVE) HEART FAILURE (4) Anemia Code(s): D64.9 - ANEMIA, UNSPECIFIED Qualifiers: Anemia type: unspecified type Qualified Code(s): D64.9 - Anemia, unspecified (5) Anemia, chronic renal failure Code(s): N18.9 - CHRONIC KIDNEY DISEASE, UNSPECIFIED D63.1 - ANEMIA IN CHRONIC KIDNEY DISEASE (6) ESRD (end stage renal disease) on dialysis Code(s): N18.6 - END STAGE RENAL DISEASE Z99.2 - DEPENDENCE ON RENAL DIALYSIS (7) Hypertensive renal disease Code(s): I12.9 - HYPERTENSIVE CHRONIC KIDNEY DISEASE W STG 1-4/UNSP CHR KDNY (8) Congestive heart failure Code(s): I50.9 - HEART FAILURE, UNSPECIFIED Assessment/Plan 71 y/o female with ESRD admitted with accelerated Hypertension. The patient was recently d/c from the hospital with a similar admission, and her BP was well controlled on d/c. Now started on IV nitrates, and oral medications are also started. Once discharged, the patient should have VNS and outpatient follow up arranged to ensure compliance with the revised medication regimen. Plan: Concur with the current management. Will dialyze in AM. Will monitor the Vital signs closely. Need VNS arranged prior medication compliance prior to Discharge. Thanks again. Sobeida Chavez MD
--- NOTE | 2017-02-08 13:30 | PN ---
Physical Exam: SUBJECTIVE: Patient seen and examined Pt is awake, alert and oriented no s;s of acute distress pt had headache yesterday but none today Pt had nausea yesterday but it has subsided today no blurred vison or double vision no chest pain or shortness of breath no dizziness or confusion BP has gradually decreased on Nitro drip currently at 12 mcg/mn with BP 153/66 Pt said she has been seen Dr Rothman for 20 years as PCP OBJECTIVE: Vital Signs Period Temp Pulse Resp BP Sys/Parker Pulse Ox Last 24 Hr 98 F-98.0 F 63-70 18-62 121-205/69-104 94-100 GENERAL: The patient is awake, alert, and fully oriented, in no acute distress. HEAD: Normal with no signs of trauma. EYES: PERRL, extraocular movements intact, sclera anicteric, conjunctiva clear. No ptosis. ENT: Ears normal, nares patent, oropharynx clear without exudates, moist mucous membranes. NECK: Trachea midline, full range of motion, supple. LUNGS: Breath sounds equal, clear to auscultation bilaterally, minimal bibasilar crackles. no wheezes, no crackles, no accessory muscle use. HEART: Regular rate and rhythm, S1, S2 with systolic murmur, rub or gallop. ABDOMEN: Soft, nontender, nondistended, normoactive bowel sounds, no guarding, no rebound, no hepatosplenomegaly, no masses. EXTREMITIES: 2+ pulses, warm, well-perfused, no edema. NEUROLOGICAL: Cranial nerves II through XII grossly intact. Normal speech, gait not observed. Pt used walker PSYCH: Normal mood, normal affect. SKIN: Warm, dry, normal turgor, no rashes or lesions noted Laboratory Results - last 24 hr 02/08/17 02/08/17 02/08/17 04:21 04:21 04:21 WBC 5.7 RBC 4.44 Hgb 12.2 Hct 37.0 MCV 83.4 MCHC 32.9 RDW 19.5 H Plt Count 104 L MPV 8.5 Neutrophils % 69.7 Lymphocytes % 15.2 D Monocytes % 9.7 Eosinophils % 4.4 Basophils % 1.0 Sodium 138 Potassium 3.9 Chloride 96 L Carbon Dioxide 29 Anion Gap 13 BUN 17 D Creatinine 3.8 H D Creat Clearance w eGFR 11.71 POC Glucometer Random Glucose 150 H Calcium 8.7 Phosphorus 4.8 D Magnesium 2.3 Total Bilirubin 0.5 D AST 9 L ALT 13 D Alkaline Phosphatase 102 Troponin I 0.06 H Total Protein 7.4 Albumin 3.9 02/08/17 02/08/17 02/08/17 08:29 09:35 11:29 WBC RBC Hgb Hct MCV MCHC RDW Plt Count MPV Neutrophils % Lymphocytes % Monocytes % Eosinophils % Basophils % Sodium Potassium Chloride Carbon Dioxide Anion Gap BUN Creatinine Creat Clearance w eGFR POC Glucometer 161.14007 201.07555 Random Glucose Calcium Phosphorus Magnesium Total Bilirubin AST ALT Alkaline Phosphatase Troponin I 0.05 Total Protein Albumin Active Medications Generic Name Dose Route Start Last Admin Trade Name Freq PRN Reason Stop Dose Admin Atorvastatin Calcium 10 mg 02/08/17 22:00 Lipitor - PO HS KARINA Calcium Acetate 667 mg 02/08/17 08:00 02/08/17 10:17 Phoslo - PO 667 mg TIDCM KARINA Administration Nitroglycerin/Dextrose 250 mls @ 6 mls/hr 02/08/17 01:00 02/08/17 01:49 Nitroglycerin 25mg/D5w 250ml IVPB 6 mls/hr TITR KARINA Administration 10 MCG/MIN Insulin Aspart 1 vial 02/08/17 07:00 02/08/17 11:48 Novolog Vial Sliding Scale - SQ 4 unit ACHS KARINA Administration Protocol Labetalol HCl 200 mg 02/08/17 02:06 02/08/17 04:41 Normodyne - PO 200 mg Q6H PRN Administration HYPERTENSION Losartan Potassium 100 mg 02/08/17 10:00 02/08/17 10:17 Cozaar - PO 100 mg DAILY KARINA Administration Nifedipine 60 mg 02/08/17 10:00 02/08/17 10:18 Procardia Xl - PO 60 mg BID KARINA Administration Spironolactone 50 mg 02/08/17 10:00 02/08/17 10:17 Aldactone - PO 50 mg DAILY KARINA Administration Torsemide 40 mg 02/08/17 10:00 02/08/17 10:17 Demadex - PO 40 mg DAILY KARINA Administration CBC, BMP 02/08/17 04:21 02/08/17 04:21 ASSESSMENT/PLAN: 71 year old female with pmh of HTN, ESRD on dialysis MWF, Diabestes, anemia present to the ED with BP 221/74 after dialysis. Hypertensive urgency Pt has nausea and headache which has subsided with BP control In ED Pt received Hydralazine 10mg IVx2, Labetalol 10 IV Pt was placed on nitroglycerin drip currently running at 12mcg/mn with BP of 153 /66 Pt has labetalol 200mg PO PRN Titrate down nitro drip until stop, Give Labetalol PO during transition. Do not drop SBP below 140 Renal consulted Trop 0.05, 0.06, 0.05 this morning, no need to continue trending ESRD on dialysis No s/s of volume overload, no lower extremity edema, no sob renal consulted Dialysis in am H/o Normocytic anemia, likely related to renal disease Hgb 12.2 which is in normal range for a woman Thomcytopenia Plt 104, not far from baseline 150's Pt has had Plt in low 100 in the past 2 years HIT panel already ordered, will follow Diabetes Novolog sliding scale ABGM ACHS diabetic diet FEN Fluid : none electrolytes: No abnormalities Nutrition: renal/diabetic diet Disposition: keep in tele, will likely discharge tomorrow after dialysis, if BP stable off nitroglycerin drip Visit type - Emergency Visit Emergency Visit: Yes ED Registration Date: 02/08/17 Care time: The patient presented to the Emergency Department on the above date and was hospitalized for further evaluation of their emergent condition. - New Patient This patient is new to me today: Yes Date on this admission: 02/08/17 - Critical Care Critical Care patient: No - Discharge Referral Referred to [facility] Med P.C.: No
--- NOTE | 2017-02-08 16:19 | EKG ---
Test Reason : Blood Pressure : / mmHG Vent. Rate : 064 BPM Atrial Rate : 064 BPM P-R Int : 194 ms QRS Dur : 108 ms QT Int : 458 ms P-R-T Axes : 053 -53 103 degrees QTc Int : 472 ms POOR DATA QUALITY, INTERPRETATION MAY BE ADVERSELY AFFECTED NORMAL SINUS RHYTHM POSSIBLE LEFT ATRIAL ENLARGEMENT INCOMPLETE RIGHT BUNDLE BRANCH BLOCK LEFT ANTERIOR FASCICULAR BLOCK LEFT VENTRICULAR HYPERTROPHY T WAVE ABNORMALITY, CONSIDER LATERAL ISCHEMIA PROLONGED QT ABNORMAL ECG WHEN COMPARED WITH ECG OF 08-JAN-2017 07:21, T WAVE INVERSION NOW EVIDENT IN LATERAL LEADS Confirmed by KLEVER NAVA MD ([id number]) on 02/08/2017 4:19:09 PM Referred By: Confirmed By:KLEVER NAVA MD
--- NOTE | 2017-02-08 19:05 | PN ---
Teaching Attending Note Name of Resident: Kaden Damon ATTENDING PHYSICIAN STATEMENT I saw and evaluated the patient. I reviewed the resident's note and discussed the case with the resident. I agree with the resident's findings and plan as documented. SUBJECTIVE:currently asymptomatic. states she is complaint with home medication. denies CP, SOB,fever, chills, blurred vision, N/V/C/D OBJECTIVE: Last Vital Signs Temp Pulse Resp BP Pulse Ox 98.0 F 74 17 173/69 99 02/08/17 12:23 02/08/17 18:35 02/08/17 18:35 02/08/17 18:35 02/08/17 18:35 General NAD CV S1 S2 +murmur Extremities LUE palpable thrill ASSESSMENT AND PLAN: 71yo F with HTN, ESRD on dialysis MWF, Diabetes, anemia present to the ED and was admitted for further evaluation of their emergent condition 1. HTN urgency- asymptomatic. cont to be on NTG ggt. re-started on some of home medications. will slowly re-start home medications. goal SBP <150. titrate off ggt. continuous cardiac monitoring. 2. ESRD on HD- HD tomorrow per normal schedule. nephrology on board 3. thrombocytopenia- no signs of bleeding. stable.HIT ab pending. monitor 4. DVT ppx- SCD
[2017-02-08] MEDS: ATORVASTATIN CA 10 MG TABLET (FP) PO SCH (22:35)
[2017-02-09] MEDS: INSULIN SLIDING SCALE (NOVOLOG) 1 VIAL SQ SCH ×4 (06:09→22:22)
[2017-02-09] MEDS: LABETALOL HCL 200 MG TABLET (FP) PO SCH ×3 (07:47→22:22)
[2017-02-09] MEDS: CALCIUM ACETATE 667 MG CAPSULE (FP) PO SCH ×3 (07:47→17:14)
[2017-02-09 07:55] LABS: ALBUMIN 3.7 g/dl (3.4-5.0); CALCIUM 8.8 mg/dL (8.5-10.1)
[2017-02-09 08:03] LABS: BILIRUBIN,TOTAL 0.5 mg/dL (0.2-1.0); COCKROFT - GAULT 8.755; CREATININE 6.1 mg/dL (0.55-1.02); TOT PROT 6.9 g/dl (6.4-8.2)
[2017-02-09] MEDS ORDERED: FUROSEMIDE 40 MG TABLET (FP) PO SCH (10:00)
[2017-02-09] MEDS: NIFEdipine E.R 60 MG TABLET (UD) PO SCH ×2 (10:35→22:22)
[2017-02-09] MEDS: LOSARTAN POTASSIUM 50 MG TABLET (FP) PO SCH (10:35)
[2017-02-09 11:00] LABS: BASOPHIL 1.1 % (0-2.0); EOSINOPHIL 4.3 % (0-4.5); MCH 27.3 pg (25.7-33.7); MCHC 32.1 g/dl (32.0-36.0); MEAN PLT VOLUME 9.1 fl (7.5-11.1); NEUTROPHILS 77.9 % (42.8-82.8); PLATELET COUNT 101 K/MM3 (134-434); RDW 18.7 % (11.6-15.6); WHITE BLOOD COUNT 5.9 K/mm3 (4.0-10.0)
[2017-02-09] MEDS ORDERED: hydrALAZINE HCL 25 MG TABLET (FP) PO ONE (11:00)
--- NOTE | 2017-02-09 13:08 | PN ---
Physical Exam: SUBJECTIVE: Patient seen and examined Pt is awake. alert and oriented No s/s of acute distress No fever or chills No headache, no blurred or double vision no n/v After DC the nitroglycerin drip her BP started to rise this morning. Pt is still asymptomatic OBJECTIVE: Vital Signs Period Temp Pulse Resp BP Sys/Parker Pulse Ox Last 24 Hr 97.9 F-98.4 F 61-74 17-20 136-209/58-99 98-100 GENERAL: The patient is awake, alert, and fully oriented, in no acute distress. HEAD: Normal with no signs of trauma. NECK: Trachea midline, full range of motion, supple. LUNGS: Breath sounds equal, clear to auscultation bilaterally, minimal bibasilar crackles. no wheezes, no accessory muscle use. HEART: Regular rate and rhythm, S1, S2 with systolic murmur 3/6, rub or gallop. ABDOMEN: Soft, nontender, nondistended, normoactive bowel sounds, no guarding, no rebound, no hepatosplenomegaly, no masses. EXTREMITIES: 2+ pulses, warm, well-perfused, no edema. NEUROLOGICAL: Cranial nerves II through XII grossly intact. Normal speech, gait not observed. Pt used walker PSYCH: Normal mood, normal affect. SKIN: Warm, dry, normal turgor, no rashes or lesions noted Laboratory Results - last 24 hr 02/08/17 02/08/17 02/09/17 18:28 22:25 05:35 WBC RBC Hgb Hct MCV MCHC RDW Plt Count MPV Neutrophils % Lymphocytes % Monocytes % Eosinophils % Basophils % Sodium 136 Potassium 4.9 D Chloride 95 L Carbon Dioxide 27 Anion Gap 14 BUN 33 H D Creatinine 6.1 H D Creat Clearance w eGFR 6.78 POC Glucometer 153.84459 144 Random Glucose 145 H Calcium 8.8 Total Bilirubin 0.5 AST 11 L D ALT 13 Alkaline Phosphatase 91 Total Protein 6.9 Albumin 3.7 02/09/17 02/09/17 02/09/17 06:06 10:50 11:50 WBC 5.9 RBC 4.42 Hgb 12.1 Hct 37.6 MCV 85.0 MCHC 32.1 RDW 18.7 H Plt Count 101 L MPV 9.1 Neutrophils % 77.9 Lymphocytes % 8.9 D Monocytes % 7.8 Eosinophils % 4.3 Basophils % 1.1 Sodium Potassium Chloride Carbon Dioxide Anion Gap BUN Creatinine Creat Clearance w eGFR POC Glucometer 137 151 Random Glucose Calcium Total Bilirubin AST ALT Alkaline Phosphatase Total Protein Albumin Active Medications Generic Name Dose Route Start Last Admin Trade Name Michelq PRN Reason Stop Dose Admin Atorvastatin Calcium 10 mg 02/08/17 22:00 02/08/17 22:35 Lipitor - PO 10 mg HS KARINA Administration Calcium Acetate 667 mg 02/08/17 08:00 02/09/17 11:40 Phoslo - PO 667 mg TIDCM KARINA Administration Furosemide 80 mg 02/09/17 10:00 Lasix - PO DAILY KARINA Nitroglycerin/Dextrose 250 mls @ 6 mls/hr 02/08/17 01:00 02/08/17 01:49 Nitroglycerin 25mg/D5w 250ml IVPB 6 mls/hr TITR KARINA Administration 10 MCG/MIN Insulin Aspart 1 vial 02/08/17 07:00 02/09/17 12:10 Novolog Vial Sliding Scale - SQ 2 unit ACHS KARINA Administration Protocol Labetalol HCl 400 mg 02/09/17 07:15 02/09/17 10:26 Normodyne - PO Not Given BID KARINA Losartan Potassium 100 mg 02/08/17 10:00 02/09/17 10:35 Cozaar - PO 100 mg DAILY KARINA Administration Nifedipine 60 mg 02/08/17 10:00 02/09/17 10:35 Procardia Xl - PO 60 mg BID KARINA Administration Spironolactone 50 mg 02/08/17 10:00 02/08/17 10:17 Aldactone - PO 50 mg DAILY KARINA Administration Torsemide 40 mg 02/08/17 10:00 02/08/17 10:17 Demadex - PO 40 mg DAILY KARINA Administration CBC, BMP 02/09/17 10:50 02/09/17 05:35 ASSESSMENT/PLAN: 71 year old female with pmh of HTN, ESRD on dialysis MWF, Diabestes, anemia present to the ED with BP 221/74 after dialysis. Hypertensive urgency Pt has nausea and headache on admission which has subsided with BP control In ED Pt received Hydralazine 10mg IVx2, Labetalol 10 IV Pt was placed on nitroglycerin drip which was stopped this morning. once off nitro SBP started to rise to 206 On LAsix 80mg daily Torsemide 40mg Po daily Aldactone 50mg Daily Nifedipine 60mg BID Cozaar 100mg PO daily Added labetalol 400mg PO bid Added Hydralazine 25mg PO once, will continue if it helps control the BP Renal consulted Trop 0.05, 0.06, 0.05 this morning, no need to continue trending ESRD on dialysis No s/s of volume overload, no lower extremity edema, no sob renal consulted currently in dialysis H/o Normocytic anemia, likely related to renal disease Hgb 12.1 which is in normal range for a woman Thomcytopenia Plt 104, not far from baseline 150's Pt has had Plt in low 100 in the past 2 years HIT panel already ordered, will follow Diabetes Novolog sliding scale BGM ACHS diabetic diet FEN Fluid : none electrolytes: No abnormalities Nutrition: renal/diabetic diet Disposition: keep in tele, will discharge if BP is controlled in afternoon Visit type - Emergency Visit Emergency Visit: Yes ED Registration Date: 02/08/17 Care time: The patient presented to the Emergency Department on the above date and was hospitalized for further evaluation of their emergent condition. - New Patient This patient is new to me today: Yes - Critical Care Critical Care patient: No - Discharge Referral Referred to [facility] Med P.C.: No
--- NOTE | 2017-02-09 13:53 | PN ---
Teaching Attending Note Name of Resident: Kaden Damon ATTENDING PHYSICIAN STATEMENT I saw and evaluated the patient. I reviewed the resident's note and discussed the case with the resident. I agree with the resident's findings and plan as documented. SUBJECTIVE:currently asymptomatic. currently receiving HD. states she slept well. denies CP, SOB,fever, chills, blurred vision OBJECTIVE: Last Vital Signs Temp Pulse Resp BP Pulse Ox 97.9 F 68 18 150/87 100 02/09/17 09:55 02/09/17 13:30 02/09/17 13:30 02/09/17 13:30 02/08/17 21:00 General NAD, no nystagmus, PERRL CV S1 S2 +murmur Lungs CTA B/L no wheezing/rales/rhonchi anteriorly ASSESSMENT AND PLAN: 71yo F with HTN, ESRD on dialysis MWF, Diabetes, anemia present to the ED and was admitted for further evaluation of their emergent condition 1. HTN urgency- asymptomatic. BP 209/90 during HD. at this time its 150/87. all home medications re-started will cont to monitor if will require additional antihypertensive agents as currently maxed out on current medications. continuous cardiac monitoring. 2. ESRD on HD- HD today. nephrology on board 3. thrombocytopenia- no signs of bleeding. stable.HIT ab pending. monitor 4. will continue to monitor BP if remains stable and pt remains asymptomatic will d/c pt in the evening
[2017-02-09] MEDS: TORSEMIDE 20 MG TABLET (FP) PO SCH (14:31)
[2017-02-09] MEDS: SPIRONOLACTONE 25 MG TABLET (FP) PO SCH ×2 (14:31→22:22)
--- NOTE | 2017-02-09 15:01 | PN ---
Progress Note (short form) - Note Progress Note: Renal Follow up for ESRD on HD and hypertensive urgency Pt seen and examined during dialysis Bp 190/90 Goal UF is 3L given BP meds during HD treatment no complaints, denies sob, chest pain, ZENDEJAS No N/V/D Vital Signs Temperature 98.6 F 02/09/17 13:56 Pulse Rate 74 02/09/17 13:56 Respiratory Rate 20 02/09/17 13:56 Blood Pressure 158/49 02/09/17 13:56 O2 Sat by Pulse Oximetry (%) 100 02/08/17 21:00 Intake & Output 02/06/17 02/07/17 02/08/17 02/09/17 23:59 23:59 23:59 23:59 Intake Total 120 60 Balance 120 60 Weight 145 lb 144 lb 15.968 oz Gen: NAD, awake and alert CVS: RRR, No Murmur Lungs: CTA, no rales or wheeze Abd: Soft NT/ND Ext: No edema, clubbing or cyanosis CBC, BMP 02/09/17 10:50 02/09/17 05:35 Laboratory Tests 02/09/17 05:35 Calcium 8.8 Albumin 3.7 Current Medications Atorvastatin Calcium (Lipitor -) 10 mg PO HS [facility] Last Admin: 02/08/17 22:35 Dose: 10 mg Calcium Acetate (Phoslo -) 667 mg PO TIDCM [facility] Last Admin: 02/09/17 11:40 Dose: 667 mg Furosemide (Lasix -) 80 mg PO DAILY [facility] Last Admin: 02/09/17 14:31 Dose: 80 mg Nitroglycerin/Dextrose (Nitroglycerin 25mg/D5w 250ml) 250 mls @ 6 mls/hr IVPB TITR [facility] PRN Reason: 10 MCG/MIN Last Admin: 02/08/17 01:49 Dose: 6 mls/hr Insulin Aspart (Novolog Vial Sliding Scale -) 1 vial SQ ACHS [facility] PRN Reason: Protocol Last Admin: 02/09/17 12:10 Dose: 2 unit Labetalol HCl (Normodyne -) 400 mg PO BID [facility] Last Admin: 02/09/17 10:26 Dose: Not Given Losartan Potassium (Cozaar -) 100 mg PO DAILY [facility] Last Admin: 02/09/17 10:35 Dose: 100 mg Nifedipine (Procardia Xl -) 60 mg PO BID [facility] Last Admin: 02/09/17 10:35 Dose: 60 mg Spironolactone (Aldactone -) 50 mg PO DAILY [facility] Last Admin: 02/09/17 14:31 Dose: 50 mg Torsemide (Demadex -) 40 mg PO DAILY [facility] Last Admin: 02/09/17 14:31 Dose: 40 mg A/P 71 year old woman with PMhx of ESRD on HD ([facility]), Difficult to control hypertension, DM presents with hypertensive urgency. #ESRD on HD Tolerating HD with UF Renato maintain on MWF [place] Dose all meds for intermittent HD #Hypertensive Urgency BP remains uncontrolled Continue Losartan 100mg (max dose), Labetalol 400mg BID, Procardia xl 400mg BID (max dose) Increase Aldactone to 50mg BID Goal BP for now < 160/90 for now D/C Lasix continue Torsemide Thank you Alf Mcmahan DO
[2017-02-09] MEDS: NITROGLYCERIN 25MG/D5W 250ML 250 ML IVPB SCH (22:21)
[2017-02-09] MEDS: ATORVASTATIN CA 10 MG TABLET (FP) PO SCH (22:22)
[2017-02-10] MEDS: NITROGLYCERIN 25MG/D5W 250ML 250 ML IVPB SCH (06:28)
[2017-02-10] MEDS: INSULIN SLIDING SCALE (NOVOLOG) 1 VIAL SQ SCH ×3 (06:28→17:25)
[2017-02-10 08:19] LABS: CALCIUM 9.5 mg/dL (8.5-10.1); COCKROFT - GAULT 11.645; CREATININE 4.6 mg/dL (0.55-1.02)
[2017-02-10] MEDS: SPIRONOLACTONE 25 MG TABLET (FP) PO SCH (09:11)
[2017-02-10] MEDS: CALCIUM ACETATE 667 MG CAPSULE (FP) PO SCH ×3 (09:11→17:25)
[2017-02-10] MEDS: NIFEdipine E.R 60 MG TABLET (UD) PO SCH (09:12)
[2017-02-10] MEDS: LOSARTAN POTASSIUM 50 MG TABLET (FP) PO SCH (09:12)
[2017-02-10] MEDS: LABETALOL HCL 200 MG TABLET (FP) PO SCH (09:12)
[2017-02-10] MEDS: TORSEMIDE 20 MG TABLET (FP) PO SCH (09:12)
--- NOTE | 2017-02-10 11:24 | PN ---
Progress Note (short form) - Note Progress Note: Renal Follow up for ESRD on HD and hypertensive urgency Pt seen and examined at the bedside no acute complaints no chest pain, sob, N/V/D Vital Signs Temperature 98.2 F 02/10/17 09:00 Pulse Rate 66 02/10/17 09:00 Respiratory Rate 14 02/10/17 09:00 Blood Pressure 196/76 02/10/17 09:00 O2 Sat by Pulse Oximetry (%) 98 02/09/17 21:00 Intake & Output 02/07/17 02/08/17 02/09/17 02/10/17 23:59 23:59 23:59 23:59 Intake Total 120 60 0 Balance 120 60 0 Weight 145 lb 144 lb 15.968 oz Gen: NAD, awake and alert CVS: RRR, No Murmur Lungs: CTA, no rales or wheeze Abd: Soft NT/ND Ext: No edema, clubbing or cyanosis CBC, BMP 02/09/17 10:50 02/10/17 05:35 Laboratory Tests 02/10/17 05:35 Calcium 9.5 Current Medications Atorvastatin Calcium (Lipitor -) 10 mg PO HS [facility] Last Admin: 02/09/17 22:22 Dose: 10 mg Calcium Acetate (Phoslo -) 667 mg PO TIDCM [facility] Last Admin: 02/10/17 09:11 Dose: 667 mg Nitroglycerin/Dextrose (Nitroglycerin 25mg/D5w 250ml) 250 mls @ 6 mls/hr IVPB TITR KARINA PRN Reason: 10 MCG/MIN Last Admin: 02/10/17 06:28 Dose: Not Given Insulin Aspart (Novolog Vial Sliding Scale -) 1 vial SQ ACHS KARINA PRN Reason: Protocol Last Admin: 02/10/17 06:28 Dose: Not Given Labetalol HCl (Normodyne -) 400 mg PO BID [facility] Last Admin: 02/10/17 09:12 Dose: 400 mg Losartan Potassium (Cozaar -) 100 mg PO DAILY [facility] Last Admin: 02/10/17 09:12 Dose: 100 mg Nifedipine (Procardia Xl -) 60 mg PO BID [facility] Last Admin: 02/10/17 09:12 Dose: 60 mg Spironolactone (Aldactone -) 50 mg PO BID [facility] Last Admin: 02/10/17 09:11 Dose: 50 mg Torsemide (Demadex -) 40 mg PO DAILY [facility]AR[facility] Last Admin: 02/10/17 09:12 Dose: 40 mg A/P 71 year old woman with PMhx of ESRD on HD (MWF), Difficult to control hypertension, DM presents with hypertensive urgency. #ESRD on HD s/p dialysis yesterday #Hypertensive Urgency BP improved yesterday on current regamin if BP ~160/90 ok for discharge on current meds can further titrate BP meds as outpatient #Thrombocytopenia will hold further heparin with HD Thank you Alf Mcmahan DO
[2017-02-10 14:22] VITALS: BP 138/65; PULSE 72; TEMP 98.4
--- NOTE | 2017-02-10 16:22 | PN ---
Progress Note (short form) - Note Progress Note: remains asymptomatic. tolerated full HD session yesterday. denies Cp, SOB,fever , chills, ZENDEJAS or blurred vision Current Medications Generic Name Dose Route Start Last Admin Trade Name Ignacio PRN Reason Stop Dose Admin Atorvastatin Calcium 10 mg 02/08/17 22:00 02/09/17 22:22 Lipitor - PO 10 mg HS KARINA Administration Calcium Acetate 667 mg 02/08/17 08:00 02/10/17 11:57 Phoslo - PO 667 mg TIDCM KARINA Administration Insulin Aspart 1 vial 02/08/17 07:00 02/10/17 11:57 Novolog Vial Sliding Scale - SQ 2 unit ACHS KARINA Administration Protocol Labetalol HCl 400 mg 02/09/17 07:15 02/10/17 09:12 Normodyne - PO 400 mg BID KARINA Administration Losartan Potassium 100 mg 02/08/17 10:00 02/10/17 09:12 Cozaar - PO 100 mg DAILY KARINA Administration Nifedipine 60 mg 02/08/17 10:00 02/10/17 09:12 Procardia Xl - PO 60 mg BID KARINA Administration Spironolactone 50 mg 02/09/17 22:00 02/10/17 09:11 Aldactone - PO 50 mg BID KARINA Administration Torsemide 40 mg 02/08/17 10:00 02/10/17 09:12 Demadex - PO 40 mg DAILY KARINA Administration Last Vital Signs Temp Pulse Resp BP Pulse Ox 98.4 F 72 18 138/65 96 02/10/17 14:00 02/10/17 14:00 02/10/17 14:00 02/10/17 14:00 02/10/17 09:00 General NAD, no nystagmus, PERRL CV S1 S2 +murmur Lungs CTA B/L no wheezing/rales/rhonchi anteriorly ASSESSMENT AND PLAN: 71yo F with HTN, ESRD on dialysis MWF, Diabetes, anemia present to the ED and was admitted for further evaluation of their emergent condition 1. HTN urgency- asymptomatic. BP has been controlled since adjustment to medication (one isolated reading SBP 190) lasix d/c and spirolactone now BID dosing. encouraged pt compliance of medication. 2. ESRD on HD- HD yesterday, cont HD per normal schedule. nephrology on board 3. thrombocytopenia- no signs of bleeding. stable.HIT ab pending. monitor 4. d/c home on new medication regimen. stressed importance of following up with PMD on sunday for further BP management Visit type - Emergency Visit Emergency Visit: Yes ED Registration Date: 02/08/17 Care time: The patient presented to the Emergency Department on the above date and was hospitalized for further evaluation of their emergent condition. - New Patient This patient is new to me today: No - Critical Care Critical Care patient: No - Discharge Referral Referred to [facility] No
[2017-02-11 00:08] LABS: HEP B SURFACE AB Non Reactive (.)
== END 2017-02-10 18:39 | disposition home or self-care (01) | DRG 199 ==
LOC: JER 19:37 → JERBED 02-08 00:59 → UNDOADMIN 02-08 01:22 → JERBED 02-08 01:22 → J4W 02-08 20:45
PROVIDERS: ADMIT Internal Medicine; ATTEND Internal Medicine
PROC: 5A1D00Z (ICD-10-PCS; principal; 2017-02-09)
DX: I16.0 Hypertensive urgency (principal); E11.22 Type 2 diabetes mellitus with diabetic chronic kidney disease; I24.8 Other forms of acute ischemic heart disease; I50.32 Chronic diastolic (congestive) heart failure; I13.2 Hypertensive heart and chronic kidney disease with heart failure and with stage 5 chronic kidney disease, or end stage renal disease; N18.6 End stage renal disease; D69.6 Thrombocytopenia, unspecified; I45.10 Unspecified right bundle-branch block; D63.1 Anemia in chronic kidney disease; E78.5 Hyperlipidemia, unspecified; M54.9 Dorsalgia, unspecified; Z99.2 Dependence on renal dialysis
CPT/HCPCS: 36415; 71010-TC; 80048; 80053; 82550; 83735; 84100; 84484; 85025; 85610; 86022; 86704; 86706; 86708; 87340; 93005; 93010; 99285-25

== ENCOUNTER 2017-02-21 19:32 | Emergency (ER) | payer OTHER ==
[2017-02-21] MEDS ORDERED: LABETALOL HCL 100 MG TABLET (FP) PO ONE (19:58)
[2017-02-21] MEDS ORDERED: SPIRONOLACTONE 25 MG TABLET (FP) PO ONE (19:58)
--- NOTE | 2017-02-21 19:59 | PDOC ---
History of Present Illness - General History Source: Patient Exam Limitations: No Limitations - History of Present Illness Initial Comments: 02/21/17 22:38 The patient is a 71 year old female with significant past medical history of ESRD on hemodialysis MWF, CHF, hypertension, hyperlipidemia, and diabetes who presents to the ED BIBA for elevated blood pressure. Patient reports she had a full session of dialysis today and at that time, her blood pressure was checked when it was noted to be elevated. Patient has complaints of a mild headache and no other complaints. The patient denies fever, chills, cough, SOB, chest pain, and palpitations. The patient denies abdominal pain, nausea, vomiting, and diarrhea. Allergies: NKDA Social History: No alcohol, tobacco, or drug use reported. Past Surgical History: AV Fistula/Graft on LUE PCP: None reported <Gloria Huber - Last Filed: 02/21/17 23:38> <Jerry Garcia - Last Filed: 02/21/17 23:52> - General Chief Complaint: Blood Pressure Problem Stated Complaint: BLOOD PRESSURE PROBLEM Past History <Gloria Huber - Last Filed: 02/21/17 23:38> - Past Medical History Anemia: Yes Asthma: No Cancer: No Cardiac Disorders: No CVA: No COPD: No CHF: Yes Dementia: No Diabetes: Yes Dialysis: Yes GI Disorders: No Disorders: Yes (esrd, dialysis) HTN: Yes Hypercholesterolemia: Yes Liver Disease: Yes Seizures: No Thyroid Disease: No - Surgical History Abdominal Surgery: Yes Appendectomy: No Cardiac Surgery: No Cholecystectomy: No Lung Surgery: No Neurologic Surgery: No Orthopedic Surgery: No - Immunization History Immunization Up to Date: Yes - Psycho/Social/Smoking Cessation Hx Anxiety: No Suicidal Ideation: No Smoking History: Never smoked Have you smoked in the past 12 months: No Number of Cigarettes Smoked Daily: 0 Information on smoking cessation initiated: No Hx Alcohol Use: No Drug/Substance Use Hx: No Substance Use Type: None Hx Substance Use Treatment: No <Jerry Garcia - Last Filed: 02/21/17 23:52> - Past Medical History Allergies/Adverse Reactions: Allergies Allergy/AdvReac Type Severity Reaction Status Date / Time No Known Allergies Allergy Verified 02/07/17 20:14 Home Medications: Ambulatory Orders Calcium Acetate [Phoslo -] 667 mg PO TID 01/08/17 Losartan Potassium 100 mg PO DAILY 01/08/17 Nifedipine ER [Procardia XL -] 60 mg PO BID 01/08/17 Pravastatin Sodium 20 mg PO DAILY 01/08/17 Spironolactone 50 mg PO DAILY 01/08/17 Labetalol HCl [Normodyne -] 400 mg PO BID #0 tablet 01/11/17 Spironolactone 50 mg PO BID #60 tablet 02/10/17 Torsemide [Demadex -] 40 mg PO DAILY #60 tablet 02/10/17 Review of Systems - Review of Systems Able to Perform ROS?: Yes Comments:: 02/21/17 22:38 GENERAL/CONSTITUTIONAL: No fever or chills. No weakness. HEAD, EYES, EARS, NOSE AND THROAT: No change in vision. No ear pain or discharge. No sore throat. CARDIOVASCULAR: No chest pain or shortness of breath. RESPIRATORY: No cough, wheezing, or hemoptysis. GASTROINTESTINAL: No nausea, vomiting, diarrhea or constipation. GENITOURINARY: No dysuria, frequency, or change in urination. MUSCULOSKELETAL: No joint or muscle swelling or pain. No neck or back pain. SKIN: No rash NEUROLOGIC: +headache No vertigo, loss of consciousness, or change in strength/ sensation. ENDOCRINE: No increased thirst. No abnormal weight change. HEMATOLOGIC/LYMPHATIC: No anemia, easy bleeding, or history of blood clots. ALLERGIC/IMMUNOLOGIC: No hives or skin allergy. <Gloria Huebr - Last Filed: 02/21/17 23:38> *Physical Exam - Vital Signs Last Vital Signs Temp Pulse Resp BP Pulse Ox 98.3 F 62 18 231/83 98 02/21/17 19:45 02/21/17 21:35 02/21/17 21:35 02/21/17 21:35 02/21/17 21:00 - Physical Exam Comments: 02/21/17 23:35 GENERAL: Awake, alert, and fully oriented, in no acute distress HEAD: No signs of trauma EYES: PERRLA, EOMI, sclera anicteric, conjunctiva clear ENT: Auricles normal inspection, hearing grossly normal, nares patent, oropharynx clear without exudates. Moist mucosa NECK: Normal ROM, supple, no lymphadenopathy, JVD, or masses LUNGS: Breath sounds equal, clear to auscultation bilaterally. No wheezes, and no crackles HEART: Regular rate and rhythm, normal S1 and S2, no murmurs, rubs or gallops ABDOMEN: Soft, nontender, normoactive bowel sounds. No guarding, no rebound. No masses EXTREMITIES: Normal range of motion, no edema. No clubbing or cyanosis. No cords, erythema, or tenderness. Dry bandage in place over the left forearm AV shunt, palpable thrill and bruit noted. NEUROLOGICAL: Cranial nerves II through XII grossly intact. Normal speech, normal gait SKIN: Warm, Dry, normal turgor, no rashes or lesions noted. <Gloria Huber - Last Filed: 02/21/17 23:38> - Vital Signs Last Vital Signs Temp Pulse Resp BP Pulse Ox 98.3 F 70 17 218/84 99 02/21/17 19:45 02/21/17 19:45 02/21/17 19:45 02/21/17 19:45 02/21/17 19:45 <Jerry Garcia - Last Filed: 02/21/17 23:52> Heart Score/ECG Review - ECG Impressions Comment:: 02/21/17 23:09 No changes noted in comparison with previous ECG on 02/07/17 NSR @65bpm Possible L atrial enlargement Incomplete RBBB L anterior fascicular block Nonspecific T wave abnormality <Gloria Huber - Last Filed: 02/21/17 23:38> ED Treatment Course - LABORATORY CBC & Chemistry Diagram: 02/21/17 20:20 02/21/17 20:20 - ADDITIONAL ORDERS Additional order review: Laboratory Results 02/21/17 02/21/17 20:20 20:20 INR 1.08 Sodium 136 Potassium 3.9 Chloride 97 L Carbon Dioxide 30 Anion Gap 9 BUN 12 D Creatinine 2.7 H D Creat Clearance w eGFR 17.37 Random Glucose 235 H D Calcium 8.8 Phosphorus 2.3 L D Magnesium 2.4 Total Bilirubin 0.5 AST 15 D ALT 19 D Alkaline Phosphatase 124 H D Creatine Kinase 82 Troponin I 0.06 H B-Natriuretic Peptide 04677.41 H Total Protein 7.7 Albumin 3.9 02/21/17 20:20 RBC 4.08 MCV 82.6 MCHC 32.7 RDW 18.0 H MPV 8.6 Neutrophils % 67.8 Lymphocytes % 15.0 D Monocytes % 9.8 Eosinophils % 6.2 H Basophils % 1.2 - RADIOLOGY Radiograph Interpretation: 02/21/17 23:37 RAD/CHEST X-RAY PORTABLE Radiologist' Impression: FINDINGS: Limited study due to portable nature of the exam and poor inspiratory effort. No gross consolidation seen however there is limited visualization of the retrocardiac region. There is no pleural effusion or pneumothorax. There is cardiomegaly. There is bilateral hilar fullness. Bilateral shoulder degenerative changes. IMPRESSION: Bilateral hilar fullness could be secondary to bronchovascular crowding from poor inspiratory effort however underlying pathology cannot be excluded. No gross consolidation seen with limited visualization of the left retrocardiac region. CT/CHEST CT WITHOUT CONTRAST Radiologist's Impression: FINDINGS: There is a 3 mm nodule in the right upper lobe (axial image 29). There is no focal lung consolidation or mass. There is no pleural effusion or pneumothorax. There is overall poor inspiratory effort with bronchovascular crowding and subsegmental atelectasis. The trachea and central bronchi tree are patent with no evidence of endoluminal filling defects. Evaluation of the osmin is limited due to lack of IV contrast. Prominent pretracheal and precarinal lymph nodes are seen and the majority are 1 cm in short axis the largest is in the upper gastric region measuring 1.8 cm in largest dimensions. The heart is enlarged. There is trace pericardial effusion. The ascending thoracic aorta is mildly dilated measuring up to 4.2 cm. The descending thoracic aorta is normal in caliber demonstrating moderate to severe aortic mural calcifications. The pulmonary trunk is normal in upper normal caliber measuring 3.1 cm in diameter. There is moderate to severe coronary vascular calcifications. There is moderate mitral annulus calcification. The visualized inferior portion of the thyroid gland is grossly unremarkable. There is no gross destructive bony lesion. There is thoracic spine scoliosis with secondary DJD. The gallbladder appear to be contracted with wall thickening. There is small sliding hiatal hernia. IMPRESSION: No focal consolidation or mass seen. Imaging obtained in the expiratory phase with poor inspiratory effort manifested by perihilar bronchovascular crowding and bilateral dependent atelectasis. 3 mm right upper lobe lung nodule. Follow-up in recommended. Prominent mediastinal lymph nodes of unclear etiology or clinical significance. Continued follow- up is recommended. Cardiomegaly. Moderate to severe coronary vascular calcifications Sliding hiatal hernia. Mildly dilated ascending aorta 4.2 cm. Apparently thickened contracted gallbladder with questionable wall thickening. Correlate with clinical history and symptomatology. If warranted gallbladder ultrasound may be obtained for further evaluation. - Medications Given in the ED: ED Medications Discontinued Medications Generic Name Dose Route Start Last Admin Trade Name Freq PRN Reason Stop Dose Admin Labetalol HCl 100 mg 02/21/17 19:58 02/21/17 20:10 Normodyne - PO 02/21/17 19:59 100 mg ONCE ONE Administration Labetalol HCl 10 mg 02/21/17 20:46 02/21/17 21:00 Normodyne Injection - IVPUSH 02/21/17 20:47 10 mg ONCE ONE Administration Nifedipine 60 mg 02/21/17 20:45 02/21/17 21:35 Procardia Xl - PO 02/21/17 20:46 60 mg ONCE ONE Administration Spironolactone 50 mg 02/21/17 19:58 02/21/17 20:10 Aldactone - PO 02/21/17 19:59 50 mg ONCE ONE Administration <Gloria Huber - Last Filed: 02/21/17 23:38> - LABORATORY CBC & Chemistry Diagram: 02/21/17 20:20 02/21/17 20:20 <Jerry Garcia - Last Filed: 02/21/17 23:52> Medical Decision Making - Medical Decision Making 02/21/17 23:40 71yo F with full HD session tonight, sent afterwards for elevated BP. She has no current symptoms and has no complaints. She does note a mild headache earlier with no focal neurologic symptoms. She has a negative evaluation including EKG without change from previous on file. She has a very elevated BNP however, this is lower than her previous BNP values; given the relatively acceptable BNP, CXR and CT scan of the chest showing no significant pathology aside from possible mild congestion vs poor inspiratory effort, the patient is discharged with instruction to follow up with the PMD within 12 hours for reevaluation of the BP and return to the ED if there is any change otherwise in symptoms. <Jerry Garcia - Last Filed: 02/21/17 23:52> *DC/Admit/Observation/Transfer - Attestations Scribe Attestion: 02/21/17 22:38 Documentation prepared by Gloria Huber, acting as certified medical coder for Jerry Garcia MD, MD <Gloria Huber - Last Filed: 02/21/17 23:38> - Discharge Dispostion Admit: No Decision to Admit order Date/Time: 02/21/17 23:43 <Jerry Garcia - Last Filed: 02/21/17 23:52> Diagnosis at time of Disposition: Hypertensive renal disease, Hypertensive urgency - Discharge Dispostion Disposition: HOME Condition at time of disposition: Guarded - Patient Instructions Additional Instructions: Please follow up with your PMD within the next 48 hours and if there is any change otherwise in symptoms, please return immediately to the ED. At this time , despite your blood pressure being initially very elevated, there is no evidence of any significant issue that would require you to be kept as an inpatient. Please continue to monitor your blood pressure through the day and if there is any breathing difficulty of chest pain, please return via 911. It is essential for you to be absolutely compliant with your blood pressure medications, refrain from high salt content in your diet.
[2017-02-21] MEDS ORDERED: SPIRONOLACTONE 25 MG TABLET (FP) ONE (20:08)
[2017-02-21] MEDS ORDERED: LABETALOL HCL 100 MG TABLET (FP) ONE (20:08)
[2017-02-21 20:12] VITALS: BMI 29.8
[2017-02-21 20:29] LABS: BASOPHIL 1.2 % (0-2.0); EOSINOPHIL 6.2 % (0-4.5); MCHC 32.7 g/dl (32.0-36.0); MEAN CELL VOLUME 82.6 fl (80-96); MEAN PLT VOLUME 8.6 fl (7.5-11.1); NEUTROPHILS 67.8 % (42.8-82.8); PLATELET COUNT 100 K/MM3 (134-434); WHITE BLOOD COUNT 4.8 K/mm3 (4.0-10.0)
[2017-02-21 20:41] LABS: INR 1.08 (0.82-1.09); PROTHROMBIN TIME (PATIENT) 11.9 SEC (9.98-11.88)
[2017-02-21] MEDS ORDERED: NIFEdipine E.R 60 MG TABLET (UD) PO ONE (20:45)
[2017-02-21] MEDS ORDERED: LABETALOL HCL 5 MG/1 ML (100MG/20 ML VIAL) IVPUSH ONE (20:46)
[2017-02-21 21:03] LABS: ALBUMIN 3.9 g/dl (3.4-5.0); BILIRUBIN,TOTAL 0.5 mg/dL (0.2-1.0); CALCIUM 8.8 mg/dL (8.5-10.1); COCKROFT - GAULT 22.304; CREATININE 2.7 mg/dL (0.55-1.02); MAGNESIUM 2.4 mg/dL (1.8-2.4); PHOSPHOROUS 2.3 mg/dL (2.5-4.9); TOT PROT 7.7 g/dl (6.4-8.2)
[2017-02-21 21:19] LABS: TROPONIN I 0.06 ng/ml (0.00-0.05)
[2017-02-21] MEDS ORDERED: NIFEdipine 10 MG CAPSULE (FP) PO SCH (22:00)
[2017-02-21] MEDS ORDERED: NIFEdipine E.R 60 MG TABLET (UD) PO SCH (22:00)
[2017-02-21 23:50] VITALS: BP 168/74; PULSE 70; TEMP 98.7
--- NOTE | 2017-02-22 12:26 | EKG ---
Test Reason : Blood Pressure : / mmHG Vent. Rate : 065 BPM Atrial Rate : 065 BPM P-R Int : 202 ms QRS Dur : 118 ms QT Int : 436 ms P-R-T Axes : 063 -47 092 degrees QTc Int : 453 ms NORMAL SINUS RHYTHM POSSIBLE LEFT ATRIAL ENLARGEMENT INCOMPLETE RIGHT BUNDLE BRANCH BLOCK LEFT ANTERIOR FASCICULAR BLOCK NONSPECIFIC T WAVE ABNORMALITY ABNORMAL ECG WHEN COMPARED WITH ECG OF 07-FEB-2017 20:31, NO SIGNIFICANT CHANGE WAS FOUND Confirmed by KLEVER NAVA MD ([id number]) on 02/22/2017 12:26:08 PM Referred By: Confirmed By:KLEVER NAVA MD
== END 2017-02-22 00:18 | disposition home or self-care (01) ==
LOC: JER 19:32
PROC: 3E033GC Introduction of Other Therapeutic Substance into Peripheral Vein, Percutaneous Approach (ICD-10-PCS; principal; 2017-02-21)
DX: I13.2 Hypertensive heart and chronic kidney disease with heart failure and with stage 5 chronic kidney disease, or end stage renal disease (principal); E11.22 Type 2 diabetes mellitus with diabetic chronic kidney disease; N18.6 End stage renal disease; I50.9 Heart failure, unspecified; N17.8 Other acute kidney failure; Z99.2 Dependence on renal dialysis; Z79.84 Long term (current) use of oral hypoglycemic drugs
CPT/HCPCS: 36415; 71010-TC; 71250-TC; 80053; 82550; 83735; 83880; 84100; 84484; 85025; 85610; 93005; 93010; 99282-25

== ENCOUNTER 2017-02-28 23:08 | Inpatient (IN) | payer OTHER ==
--- NOTE | 2017-02-28 23:52 | PDOC ---
History of Present Illness - General History Source: Patient Exam Limitations: No Limitations - History of Present Illness Initial Comments: 03/01/17 00:00 The patient is a 71 year old female with significant past medical history of ESRD on hemodialysis MWF, CHF, hypertension, hyperlipidemia, and diabetes who presents to the ED for elevated blood pressure. Patient reports she was at the dialysis center earlier today around 3pm, where she completed 2 hours of her dialysis session and upon discharge her vitals were checked when it was noted that her blood pressure was elevated. States having very little to eat today and now feels slight nauseous, but no vomiting. Denies headache, changes in vision, or dizziness. Denies lightheadedness, diaphoresis, SOB, chest pain, jaw pain, shoulder pain, or arm pain. The patient denies fever, chills, cough, abdominal pain, and diarrhea. Allergies: NKDA Social History: No alcohol, tobacco, or drug use reported. Past Surgical History: AV Fistula/Graft on LUE PCP: None reported <Gloria Huber - Last Filed: 03/01/17 02:40> - General History Source: Patient <Jad Hubbard - Last Filed: 03/01/17 19:45> - General Chief Complaint: Blood Pressure Problem Stated Complaint: BLOOD PRESSURE PROBLEM Time Seen by Provider: 02/28/17 23:52 Past History <Gloria Huber - Last Filed: 03/01/17 02:40> - Past Medical History Anemia: Yes Asthma: No Cancer: No Cardiac Disorders: No CVA: No COPD: No CHF: Yes Dementia: No Diabetes: Yes Dialysis: Yes GI Disorders: No Disorders: Yes (esrd, dialysis) HTN: Yes Hypercholesterolemia: Yes Liver Disease: Yes Seizures: No Thyroid Disease: No - Surgical History Abdominal Surgery: Yes Appendectomy: No Cardiac Surgery: No Cholecystectomy: No Lung Surgery: No Neurologic Surgery: No Orthopedic Surgery: No - Immunization History Immunization Up to Date: Yes - Psycho/Social/Smoking Cessation Hx Anxiety: No Suicidal Ideation: No Smoking History: Never smoked Have you smoked in the past 12 months: No Number of Cigarettes Smoked Daily: 0 Information on smoking cessation initiated: No Hx Alcohol Use: No Drug/Substance Use Hx: No Substance Use Type: None Hx Substance Use Treatment: No <Jad Hubbard - Last Filed: 03/01/17 19:45> - Past Medical History Allergies/Adverse Reactions: Allergies Allergy/AdvReac Type Severity Reaction Status Date / Time No Known Allergies Allergy Verified 02/07/17 20:14 Home Medications: Ambulatory Orders Calcium Acetate [Phoslo -] 667 mg PO TID 01/08/17 Losartan Potassium 100 mg PO DAILY 01/08/17 Nifedipine ER [Procardia XL -] 60 mg PO BID 01/08/17 Pravastatin Sodium 20 mg PO DAILY 01/08/17 Spironolactone 50 mg PO DAILY 01/08/17 Labetalol HCl [Normodyne -] 400 mg PO BID #0 tablet 01/11/17 Spironolactone 50 mg PO BID #60 tablet 02/10/17 Torsemide [Demadex -] 40 mg PO DAILY #60 tablet 02/10/17 Review of Systems - Review of Systems Able to Perform ROS?: Yes Comments:: 03/01/17 00:01 CONSTITUTIONAL: Absent: fever, chills, diaphoresis, generalized weakness, malaise, loss of appetite HEENT: Absent: rhinorrhea, nasal congestion, throat pain, throat swelling, difficulty swallowing, mouth swelling, ear pain, eye pain, visual Changes CARDIOVASCULAR: +elevated blood pressure Absent: chest pain, syncope, palpitations, irregular heart rate, lightheadedness, peripheral edema RESPIRATORY: Absent: cough, shortness of breath, dyspnea with exertion, orthopnea, wheezing, stridor, hemoptysis GASTROINTESTINAL: +nausea Absent: abdominal pain, abdominal distension, vomiting, diarrhea, constipation, melena, hematochezia GENITOURINARY: Absent: dysuria, frequency, urgency, hesitancy, hematuria, flank pain, genital pain MUSCULOSKELETAL: Absent: myalgia, arthralgia, joint swelling SKIN: Absent: rash, itching, pallor NEUROLOGIC: Absent: headache, focal weakness or paresthesias, dizziness, unsteady gait, seizure, mental status changes, bladder or bowel incontinence <Gloria Huber - Last Filed: 03/01/17 02:40> *Physical Exam - Vital Signs Last Vital Signs Temp Pulse Resp BP Pulse Ox 98.0 F 72 17 214/86 96 02/28/17 23:16 02/28/17 23:16 02/28/17 23:16 02/28/17 23:16 02/28/17 23:16 - Physical Exam Comments: 03/01/17 00:01 GENERAL: Well developed, well nourished. Awake and alert. No acute distress. HEENT: Normocephalic, atraumatic. PERRLA, EOMI. No conjunctival pallor. Sclera are non- icteric. Moist mucous membranes. Oropharynx is clear. NECK: Supple. Full ROM. No JVD. Carotid pulses 2+ and symmetric, without bruits. No thyromegaly. No lymphadenopathy. CARDIOVASCULAR: Regular rate and rhythm. No murmurs, rubs, or gallops. PULMONARY: No evidence of respiratory distress. Lungs clear to auscultation bilaterally. No wheezing, rales or rhonchi. ABDOMINAL: Soft. Non-tender. Non-distended. No rebound or guarding. No organomegaly. Normoactive bowel sounds. MUSCULOSKELETAL Normal range of motion at all joints. No bony deformities or tenderness. No CVA tenderness. EXTREMITIES: No cyanosis. No clubbing. No edema. No calf tenderness. AV shunt on left upper extremity with + bruit and thrills. SKIN: Warm and dry. Normal capillary refill. No rashes. No jaundice. NEUROLOGICAL: Alert, awake, appropriate. Cranial nerves 2-12 intact. Moving all extremities. No gross focal neurological deficits. <Gloria Huber - Last Filed: 03/01/17 02:40> - Vital Signs Last Vital Signs Temp Pulse Resp BP Pulse Ox 98.0 F 72 17 214/86 96 02/28/17 23:16 02/28/17 23:16 02/28/17 23:16 02/28/17 23:16 02/28/17 23:16 <Jad Hubbard - Last Filed: 03/01/17 19:45> Heart Score/ECG Review - ECG Impressions Comment:: 03/01/17 02:40 NSR @65bpm Possible L atrial enlargement L axis deviation Pulmonary disease pattern Incomplete RBBB T wave abnormality, consider lateral ischemia Abnormal ECG <Gloria Huber - Last Filed: 03/01/17 02:40> ED Treatment Course - LABORATORY CBC & Chemistry Diagram: 03/01/17 00:21 03/01/17 00:21 <Gloria Huber - Last Filed: 03/01/17 02:40> - LABORATORY CBC & Chemistry Diagram: 03/01/17 00:21 03/01/17 08:00 <Jad Hubbard - Last Filed: 03/01/17 19:45> Medical Decision Making - Medical Decision Making 03/01/17 19:44 Dr. Hubbard: The scribe's documentation has been prepared under my direction and personally reviewed by me in its entirery. I confirm that the note above accurately reflects all work, treatment, procedures, and medical decision making performed by me. Patient admitted to ICU for blood pressure control. Pt placed on Nitro drip.. <Jad Hubbard - Last Filed: 03/01/17 19:45> *DC/Admit/Observation/Transfer - Attestations Scribe Attestion: 03/01/17 00:01 Documentation prepared by Gloria Huber, acting as medical physiologist for Jad Hubbard MD <Gloria Huber - Last Filed: 03/01/17 02:40> - Discharge Dispostion Admit: Yes <Jad Hubbard - Last Filed: 03/01/17 19:45> Diagnosis at time of Disposition: Hypertensive urgency
[2017-02-28] MEDS ORDERED: LABETALOL HCL 5 MG/1 ML (100MG/20 ML VIAL) IVPUSH ONE (23:56)
[2017-03-01 00:46] LABS: BASOPHIL 1.3 % (0-2.0); EOSINOPHIL 3.7 % (0-4.5); MCH 25.7 pg (25.7-33.7); MCHC 31.4 g/dl (32.0-36.0); MEAN CELL VOLUME 81.9 fl (80-96); MEAN PLT VOLUME 8.6 fl (7.5-11.1); NEUTROPHILS 74.9 % (42.8-82.8); PLATELET COUNT 163 K/MM3 (134-434); RDW 17.7 % (11.6-15.6); WHITE BLOOD COUNT 8.6 K/mm3 (4.0-10.0)
[2017-03-01 00:59] LABS: INR 1.12 (0.82-1.09); PROTHROMBIN TIME (PATIENT) 12.4 SEC (9.98-11.88)
[2017-03-01 01:08] LABS: ALBUMIN 3.9 g/dl (3.4-5.0); BILIRUBIN,TOTAL 0.5 mg/dL (0.2-1.0); CALCIUM 9.8 mg/dL (8.5-10.1); COCKROFT - GAULT 8.534; CREATININE 5.8 mg/dL (0.55-1.02); MAGNESIUM 2.5 mg/dL (1.8-2.4); TOT PROT 7.1 g/dl (6.4-8.2)
[2017-03-01 01:11] LABS: TROPONIN I 0.06 ng/ml (0.00-0.05)
[2017-03-01] MEDS ORDERED: NITROGLYCERIN 50 MG/10 ML VIAL IVPB SCH (02:15)
[2017-03-01] MEDS ORDERED: NITROGLYCERIN 25MG/D5W 250ML 250 ML IVPB ONE (02:21)
--- NOTE | 2017-03-01 02:23 | PN ---
[id number] the patient. I reviewed the resident's note and discussed the case with the resident. I agree with the resident's findings and plan as documented. SUBJECTIVE: 71 yo F presents with hypertension. Patient reports she completed 2 hours of dialysis earlier today and they stopped because her BP had gone up and she was sent to ED. Patient reports to dialysis on MWF. Patient also reports very little urine output. Patient has a Hx of frequent admissions to [facility] for severe pulmonary HTN and MITCH. Upon last admission patients medication regime was evaluated and recommended BMS. Her last Echo was December and has an LBF of 58.7. PMHx: HTN, ESRD on hemodialysis MWF, CHF, hyperlipidemia, and diabetes OBJECTIVE: Last Vital Signs Temp Pulse Resp BP Pulse Ox 98.0 F 72 17 214/86 96 02/28/17 23:16 02/28/17 23:16 02/28/17 23:16 02/28/17 23:16 02/28/17 23:16 GENERAL: Awake, alert, and fully oriented, in no acute distress HEENT: Atraumatic. PERRLA, EOMI. Moist mucosa. No JVD LUNGS: No distress, speaks full sentences, rhonchi on LLL and rales on RLL. HEART: Regular rate and rhythm, normal S1 and S2, no murmurs, rubs or gallops, peripheral pulses normal and equal bilaterally. AV graft was on L arm with palpable thrill. ABDOMEN: Soft, nontender, normoactive bowel sounds. No guarding, no rebound. No masses EXTREMITIES: Normal inspection, Normal range of motion, no edema. No clubbing or Cyanosis. NEUROLOGICAL: Cranial nerves II through XII grossly intact. Normal speech, normal gait, no focal sensorimotor deficits SKIN: Warm, Dry, normal turgor, no rashes or lesions noted. CBCD WBC 8.6 K/mm3 (4.0-10.0) D 03/01/17 00:21 RBC 4.06 M/mm3 (3.60-5.2) 03/01/17 00:21 Hgb 10.4 GM/dL (10.7-15.3) L 03/01/17 00:21 Hct 33.3 % (32.4-45.2) 03/01/17 00:21 MCV 81.9 fl (80-96) 03/01/17 00:21 MCHC 31.4 g/dl (32.0-36.0) L 03/01/17 00:21 RDW 17.7 % (11.6-15.6) H 03/01/17 00:21 Plt Count 163 K/MM3 (134-434) D 03/01/17 00:21 MPV 8.6 fl (7.5-11.1) 03/01/17 00:21 CMP Sodium 137 mmol/L (136-145) 03/01/17 00:21 Potassium 4.6 mmol/L (3.5-5.1) 03/01/17 00:21 Chloride 97 mmol/L (98-107) L 03/01/17 00:21 Carbon Dioxide 25 mmol/L (21-32) 03/01/17 00:21 Anion Gap 15 (8-16) 03/01/17 00:21 BUN 30 mg/dL (7-18) H D 03/01/17 00:21 Creatinine 5.8 mg/dL (0.55-1.02) H D 03/01/17 00:21 Creat Clearance w eGFR 7.19 (>60) 03/01/17 00:21 Calcium 9.8 mg/dL (8.5-10.1) 03/01/17 00:21 Total Bilirubin 0.5 mg/dL (0.2-1.0) 03/01/17 00:21 AST 14 U/L (15-37) L 03/01/17 00:21 ALT 19 U/L (12-78) 03/01/17 00:21 Alkaline Phosphatase 111 U/L (45-117) 03/01/17 00:21 Total Protein 7.1 g/dl (6.4-8.2) 03/01/17 00:21 Albumin 3.9 g/dl (3.4-5.0) 03/01/17 00:21 ASSESSMENT AND PLAN: 1.) HTN emergency with acute on chronic kidney injury. Patient has diastolic CHF with severe pulmonary HTN group 5 secondary to her CKD. -Nitro drip to reduce BP by no more than 25% -Labetalol PRN -Frequent vital signs 2.) MITCH on CKD -Avoid nephrotoxic drugs -Continue renal diet -Continue home medications -Consult animal researcher Dr. Finney for dialysis on MWF Admit to ICU Documentation is prepared by Carlotta Vásquez acting as biomedical equipment specialist for Cara Smalls M.D. <Cara Smalls - Last Filed: 03/02/17 02:17> Teaching Attending Note Name of Resident: Roland Landis Critical Care Total Critical Care Time (in minutes): 40 Critical Care Statement: The care of this patient involved high complexity decision making to prevent further life threatening deterioration of the patient 's condition and/or to evalute & treat vital organ system(s) failure or risk of failure.
--- NOTE | 2017-03-01 02:26 | HP ---
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 She was at dialysis and was told BP was very high, she had a light headache and came to the ED for further evaluation. She says she is complaint with all her medications, taking them as prescribed. She did not eat much today, only an egg and some juice, typically she eats a healthy diet including vegetables, denies salt use. Denies chest pain, palpitations, sob, abdominal pain, fever, changes in vision, difficulty swallowing, dizziness, lightheadedness, cough. Patient has several recent hospitalizations for elevated blood pressure. ER course was notable for: (1) labetalol (2) nitro-drip (3) EKG Recent Travel: none PAST MEDICAL HISTORY: diet controlled NIDDM II, last HBA1c 6.8 12/23/2016 HTN ESRD on HD b/l cataracts CHF - last echo 12/2016, EF 58.7%, normal LVF, RV systolic pressure 50-60mmhg - severe pulmonary HTN HLD PAST SURGICAL HISTORY: b/l cataract surgery 2008 Social History: Smoking: distant use many yrs ago for a short time Alcohol:denies Drugs: denies Family History: denies family history of DM, HTN, cancer, renal pathology, rheumatological conditions Allergies No Known Allergies Allergy (Verified 02/07/17 20:14) Initial Vital Signs Temp Pulse Resp BP Pulse Ox 98.0 F 72 17 214/86 96 02/28/17 23:16 02/28/17 23:16 02/28/17 23:16 02/28/17 23:16 02/28/17 23:16 Vital Signs Temperature 98.0 F 02/28/17 23:16 Pulse Rate 68 03/01/17 04:58 Respiratory Rate 19 03/01/17 04:58 Blood Pressure 207/93 03/01/17 04:58 O2 Sat by Pulse Oximetry (%) 97 03/01/17 04:58 HOME MEDICATIONS: Home Medications Medication Instructions Recorded Calcium Acetate [Phoslo -] 667 mg PO TID 01/08/17 Losartan Potassium 100 mg PO DAILY 01/08/17 Nifedipine ER [Procardia XL -] 60 mg PO BID 01/08/17 Pravastatin Sodium 20 mg PO DAILY 01/08/17 Spironolactone 50 mg PO DAILY 01/08/17 Labetalol HCl [Normodyne -] 400 mg PO BID #0 tablet 01/11/17 Spironolactone 50 mg PO BID #60 tablet 02/10/17 Torsemide [Demadex -] 40 mg PO DAILY #60 tablet 02/10/17 REVIEW OF SYSTEMS CONSTITUTIONAL: Absent: fever, chills, diaphoresis, generalized weakness, malaise, loss of appetite, weight change HEENT: Absent: rhinorrhea, nasal congestion, throat pain, throat swelling, difficulty swallowing, mouth swelling, ear pain, eye pain, visual changes CARDIOVASCULAR: Absent: chest pain, syncope, palpitations, irregular heart rate, lightheadedness , peripheral edema RESPIRATORY: Absent: cough, shortness of breath, dyspnea with exertion, orthopnea, wheezing, stridor, hemoptysis GASTROINTESTINAL: Absent: abdominal pain, abdominal distension, nausea, vomiting, diarrhea, constipation, melena, hematochezia GENITOURINARY: Absent: dysuria, frequency, urgency, hesitancy, hematuria, flank pain, genital pain MUSCULOSKELETAL: Absent: myalgia, arthralgia, joint swelling, back pain, neck pain SKIN: Absent: rash, itching, pallor HEMATOLOGIC/IMMUNOLOGIC: Absent: easy bleeding, easy bruising, lymphadenopathy, frequent infections ENDOCRINE: Absent: unexplained weight gain, unexplained weight loss, heat intolerance, cold intolerance NEUROLOGIC: Present: mild headache Absent: focal weakness or paresthesias, dizziness, unsteady gait, seizure, mental status changes, bladder or bowel incontinence PSYCHIATRIC: Absent: anxiety, depression, suicidal or homicidal ideation, hallucinations. PHYSICAL EXAMINATION GENERAL: Awake, alert, and fully oriented, in no acute distress. HEAD: Normal with no signs of trauma. EYES: Pupils s/p cataract surgery, elza, extraocular movements intact, sclera anicteric, conjunctiva clear. No lid lag. EARS, NOSE, THROAT: Ears normal, nares patent, oropharynx clear without exudates. Moist mucous membranes. NECK: Normal range of motion, supple without lymphadenopathy, JVD, or masses. no carotid bruits LUNGS: Breath rll with rhonchi and rales. No wheezes, and no crackles. No accessory muscle use. HEART: Regular rate and rhythm, normal S1 and S2 without murmur, rub or gallop. ABDOMEN: Soft, nontender, not distended, normoactive bowel sounds, no guarding, no rebound, no masses. MUSCULOSKELETAL: Normal range of motion at all joints. No bony deformities or tenderness. No CVA tenderness. UPPER EXTREMITIES: 2+ pulses, warm, well-perfused. No cyanosis. No clubbing. No peripheral edema. left arm with palpable thrill. LOWER EXTREMITIES: 2+ pulses, warm, well-perfused. No calf tenderness. No peripheral edema. NEUROLOGICAL: Cranial nerves II-XII intact. Normal speech. PSYCHIATRIC: Cooperative. Good eye contact. Appropriate mood and affect. SKIN: Warm, dry, normal turgor, no rashes or lesions noted, normal capillary refill. Abnormal Lab Results 03/01/17 03/01/17 00:21 00:21 Hgb 10.4 L MCHC 31.4 L RDW 17.7 H Chloride 97 L BUN 30 H D Creatinine 5.8 H D Random Glucose 140 H D Magnesium 2.5 H AST 14 L Troponin I 0.06 H Laboratory Tests 03/01/17 03/01/17 03/01/17 00:21 00:21 00:21 WBC 8.6 D RBC 4.06 Hgb 10.4 L Hct 33.3 MCV 81.9 MCHC 31.4 L RDW 17.7 H Plt Count 163 D MPV 8.6 Neutrophils % 74.9 Lymphocytes % 11.6 D Monocytes % 8.5 Eosinophils % 3.7 Basophils % 1.3 INR 1.12 Sodium 137 Potassium 4.6 Chloride 97 L Carbon Dioxide 25 Anion Gap 15 BUN 30 H D Creatinine 5.8 H D Creat Clearance w eGFR 7.19 Random Glucose 140 H D Calcium 9.8 Magnesium 2.5 H Total Bilirubin 0.5 AST 14 L ALT 19 Alkaline Phosphatase 111 Creatine Kinase 81 Troponin I 0.06 H Total Protein 7.1 Albumin 3.9 Blood Type Antibody Screen 03/01/17 00:21 WBC RBC Hgb Hct MCV MCHC RDW Plt Count MPV Neutrophils % Lymphocytes % Monocytes % Eosinophils % Basophils % INR Sodium Potassium Chloride Carbon Dioxide Anion Gap BUN Creatinine Creat Clearance w eGFR Random Glucose Calcium Magnesium Total Bilirubin AST ALT Alkaline Phosphatase Creatine Kinase Troponin I Total Protein Albumin Blood Type O POSITIVE Antibody Screen Negative ASSESSMENT/PLAN: 71 yr old woman with ESRD on HD, HTN, CHF, afib, referred from dialysis due to elevated BP, admitted to ICU for hypertensive emergency and MITCH. #Hypertensive emergency with MITCH (acute on chronic, last Cr 2.8, current Cr is post-dialysis and elevated) - ICU admission - Nitro drip ggt - not to decrease BP > 10-20% within first hr and 5-15% over next 23 hours - frequent BP monitoring - hold home po medications while on nitro drip: spironolaction 50mg BID, lasix 80mg po daily, nifedipine er 60mg BID, losartan 100mg 1 tablet daily, #MITCH - continue HD - avoid IVF due to ESRD on HD and chf to prevent fluid overload - avoid nephrotoxic medications #ESRD on HD - MWF - Dr. martínez consulted #CHF - currently does not appear to be in fluid overload, no peripheral edema. - monitor #DM - BGM ACHS - NISS ACHS #diet- renally, diabetic, low na #DVT - scd's Visit type - Emergency Visit Emergency Visit: Yes ED Registration Date: 03/01/17 Care time: The patient presented to the Emergency Department on the above date and was hospitalized for further evaluation of their emergent condition. - New Patient This patient is new to me today: Yes Date on this admission: 03/01/17 - Critical Care Critical Care patient: Yes Total Critical Care Time (in minutes): 45 Critical Care Statement: The care of this patient involved high complexity decision making to prevent further life threatening deterioration of the patient 's condition and/or to evalute & treat vital organ system(s) failure or risk of failure.
[2017-03-01] MEDS ORDERED: ACETAMINOPHEN 500 MG TABLET (FP) PO ONE (04:08)
[2017-03-01] MEDS ORDERED: ACETAMINOPHEN 325 MG TABLET (FP) ONE (04:33)
[2017-03-01] MEDS ORDERED: CALCIUM ACETATE 667 MG CAPSULE (FP) PO SCH (06:00)
[2017-03-01] MEDS ORDERED: LABETALOL HCL 5 MG/1 ML (100MG/20 ML VIAL) IVPUSH PRN (06:19)
[2017-03-01] MEDS ORDERED: NITROPRUSSIDE SODIUM 50,000 MCG in SODIUM CHLORIDE 248 ML IVPB SCH (07:45)
[2017-03-01] MEDS: INSULIN SLIDING SCALE (NOVOLOG) 1 VIAL SQ SCH ×4 (07:59→22:00)
[2017-03-01 08:46] LABS: COCKROFT - GAULT 7.65; CREATININE 6.3 mg/dL (0.55-1.02)
[2017-03-01 08:49] LABS: TROPONIN I 0.06 ng/ml (0.00-0.05)
--- NOTE | 2017-03-01 08:54 | CON.CARD ---
Consult Consult Specialty:: Cardiology Referred by:: Dr. Faria Reason for Consultation:: HTN management - History of Present Illness Chief Complaint: Elevated BP at HD History of Present Illness: 71F w/ ESRD on HD, chronic HTN, DM, prior CVA was unable to complete HD yesterdat due to moderate to severely increased BP. In ER systolic BP > 200; she denies CP, SOB, palps. Had mild headache last evening which is now resolved. Denies prior NC or coronary revascularization. BP has remained moderate to severely elevated requiring Labetalol gtts to be initiated this AM. She is alert and oriented in ICU. 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: CVA (describes old CVA w/ facial droop 8 years ago) Cardio/Vascular: Yes: AFIB, CHF (chronic diastolic), HTN, Hyperlipdemia Renal/: Yes: Renal Failure, Hemodialysis Musculoskeletal: Yes: Chronic low back pain Endocrine: Yes: Diabetes Mellitus - Past Surgical History Past Surgical History: Yes: AV Fistula/Graft - Alcohol/Substance Use Hx Alcohol Use: No - Smoking History Smoking history: Never smoked Have you smoked in the past 12 months: No Aproximately how many cigarettes per day: 0 - Social History ADL: Independent History of Recent Travel: No Home Medications - Allergies Allergies/Adverse Reactions: Allergies Allergy/AdvReac Type Severity Reaction Status Date / Time No Known Allergies Allergy Verified 02/07/17 20:14 - Home Medications Home Medications: Ambulatory Orders Calcium Acetate [Phoslo -] 667 mg PO TID 01/08/17 Losartan Potassium 100 mg PO DAILY 01/08/17 Nifedipine ER [Procardia XL -] 60 mg PO BID 01/08/17 Pravastatin Sodium 20 mg PO DAILY 01/08/17 Spironolactone 50 mg PO DAILY 01/08/17 Labetalol HCl [Normodyne -] 400 mg PO BID #0 tablet 01/11/17 Spironolactone 50 mg PO BID #60 tablet 02/10/17 Torsemide [Demadex -] 40 mg PO DAILY #60 tablet 02/10/17 Family Disease History - Family Disease History Family History: Unremarkable (not pertinent to this presentation) Review of Systems Findings/Remarks: SEE HPI. No chest pain, SOB or palpitations. No edema. - Review of Systems HENT: reports: Other (mild headache last evening, now resolved.) Neck: reports: No Symptoms Cardiovascular: reports: No Symptoms Respiratory: reports: No Symptoms Gastrointestinal: reports: No Symptoms Genitourinary: reports: No Symptoms Breasts: reports: No Symptoms Reported Musculoskeletal: reports: No Symptoms Integumentary: reports: No Symptoms Neurological: reports: No Symptoms Endocrine: reports: No Symptoms Hematology/Lymphatic: reports: No Symptoms Psychiatric: reports: No Symptoms - Risk Factors Known Risk Factors: Yes: Diabetes Mellitus, Hypercholesterolemia, Hypertension, Prior NC /Emb Stroke Vital Signs: Vital Signs Temperature 98 F 03/01/17 07:34 Pulse Rate 75 03/01/17 07:34 Respiratory Rate 18 03/01/17 08:44 Blood Pressure 202/89 03/01/17 08:44 O2 Sat by Pulse Oximetry (%) 98 03/01/17 07:34 Constitutional: Yes: No Distress, Calm Eyes: Yes: Conjunctiva Clear, EOM Intact HENT: Yes: Atraumatic Respiratory: Yes: CTA Bilaterally Gastrointestinal: Yes: Soft (non-tender) Cardiovascular: Yes: Regular Rate and Rhythm (2/6 JAEL RSB) JVD: No Carotid Bruit: No PMI: Non-Displaced Heart Sounds: Yes: S1, S2 Murmur: Yes: Systolic Murmur, Grade 2 (RSB) Extremities: Yes: WNL Edema: No Neurological: Yes: Alert, Oriented ...Motor Strength: WNL Psychiatric: Yes: WNL - Other Data Labs, Other Data: CBC, BMP 03/01/17 08:00 INR, PTT INR 1.12 (0.82-1.09) 03/01/17 00:21 Laboratory Tests 03/01/17 03/01/17 03/01/17 00:21 00:21 00:21 WBC 8.6 D Hgb 10.4 L Plt Count 163 D INR 1.12 Sodium 137 Potassium 4.6 BUN 30 H D Creatinine 5.8 H D Magnesium 2.5 H AST 14 L ALT 19 Alkaline Phosphatase 111 Troponin I 0.06 H NSR 65bpm; LAE, non specific T wave changes. Cannot rule out old septal NC Echo: Pending Imaging - Results Chest X-ray: Image Reviewed EKG: Image Reviewed Problem List - Problems (1) Hypertensive urgency Assessment/Plan: -Continue ICU care -Labetalol gtts -Telemetry -Renal to see -Would attempt to initiate PO meds within next 24 hours Code(s): I10 - ESSENTIAL (PRIMARY) HYPERTENSION (2) Chronic renal failure Assessment/Plan: -incomplete HD yesterday due to elevated BP -Would attempt to dialyze today in ICU if BP allows. Code(s): N18.9 - CHRONIC KIDNEY DISEASE, UNSPECIFIED Qualifiers: Chronic kidney disease stage: stage 5 Qualified Code(s): N18.5 - Chronic kidney disease, stage 5 (3) Diabetes type 2, controlled Assessment/Plan: -management as per PMD -Check A1c if not recently done -Check Lipids Code(s): E11.9 - TYPE 2 DIABETES MELLITUS WITHOUT COMPLICATIONS Qualifiers: Diabetes mellitus complication status: with kidney complications Chronic kidney disease stage: stage 5, not on chronic dialysis (4) Abnormal EKG Assessment/Plan: -with LAE, consistent with chronic HTN -Cannot r/o old septal NC -Echo ordered for EF and wall motion assessment Code(s): R94.31 - ABNORMAL ELECTROCARDIOGRAM [ECG] [EKG] (5) Murmur, cardiac Assessment/Plan: -Echo -Suspect TR based on exam, possible AVS as well Code(s): R01.1 - CARDIAC MURMUR, UNSPECIFIED (6) Paroxysmal atrial fibrillation Assessment/Plan: -There is documented h/o PAF in EMR although patient denies -Prior CVA -Continue tele -try to obtain old records to clarify -home med list does not include an anticoagulant; would start ASA 81mg daily for now if no contraindications when BP is more controlled. Code(s): I48.0 - PAROXYSMAL ATRIAL FIBRILLATION
[2017-03-01] MEDS: LABETALOL HCL INJECTION 1,000 MG in DEXTROSE 5%-WATER - 800 ML IV SCH (09:21)
[2017-03-01 09:37] VITALS: BMI 23.8
[2017-03-01] MEDS ORDERED: NIFEdipine E.R 60 MG TABLET (UD) PO SCH (10:00)
[2017-03-01] MEDS ORDERED: TORSEMIDE 20 MG TABLET (FP) PO SCH (10:00)
[2017-03-01] MEDS ORDERED: SPIRONOLACTONE 25 MG TABLET (FP) PO SCH (10:00)
--- NOTE | 2017-03-01 10:28 | CONSULT ---
Consult - text type - Consultation Consultation Note: Renal Consult for hypertensive urgency and ESRD This is a 71 year old woman with PMhx of ESRD on HD (MWF), Difficult to control hypertension, Renal Osteodystrophy who was sent to the ED from dialysis for uncontrolled hypertension and found to have hypertensive urgency. Pt completed 1 hour of dialysis yesterday. Pt s/p several recent admissions for uncontrolled hypertension that improved during the hospitalization. Pt denies any dietary indiscretion at home. Reports compliance with all her home meds. Denies any ZENDEJAS, chest pain, blurry vision, abd pain. PMhx: as above Allergies: NKDA Family hx: NC Social Hx: No T/A/D ROS: as per HPI Home Meds: Home Medications Medication Instructions Recorded Calcium Acetate [Phoslo -] 667 mg PO TID 01/08/17 Losartan Potassium 100 mg PO DAILY 01/08/17 Nifedipine ER [Procardia XL -] 60 mg PO BID 01/08/17 Pravastatin Sodium 20 mg PO DAILY 01/08/17 Spironolactone 50 mg PO DAILY 01/08/17 Labetalol HCl [Normodyne -] 400 mg PO BID #0 tablet 01/11/17 Spironolactone 50 mg PO BID #60 tablet 02/10/17 Torsemide [Demadex -] 40 mg PO DAILY #60 tablet 02/10/17 Vital Signs Temperature 99.2 F 03/01/17 10:00 Pulse Rate 68 03/01/17 10:00 Respiratory Rate 18 03/01/17 10:00 Blood Pressure 227/92 03/01/17 10:00 O2 Sat by Pulse Oximetry (%) 98 03/01/17 07:34 Intake & Output 02/26/17 02/27/17 02/28/17 03/01/17 23:59 23:59 23:59 23:59 Weight 134 lb 130 lb 8.218 oz Gen: NAD, awake and alert HEENT: NC/AT, MMM, No JVD CVS: RRR, No M/R Lungs: CTA, no rales or wheeze Abd: soft NT/ND Ext: No edema, no clubbing or cyanosis Access: + AVF CBC, BMP 03/01/17 00:21 03/01/17 08:00 Laboratory Tests 03/01/17 08:00 Sodium 136 Potassium 5.4 H Chloride 98 Carbon Dioxide 26 Anion Gap 12 BUN 34 H Creatinine 6.3 H Troponin I 0.06 H Current Medications Calcium Acetate (Phoslo -) 667 mg PO TIDCM KARINA Chlorhexidine Gluconate (Hibiclens For Decolonization -) 1 applic TP HS KARINA Doxazosin Mesylate (Cardura -) 1 mg PO DAILY KARINA Labetalol HCl 1,000 mg/ (Dextrose) 1,000 mls @ 120 mls/hr IV TITR KARINA PRN Reason: 2 MG/MIN Last Admin: 03/01/17 09:21 Dose: 120 mls/hr Insulin Aspart (Novolog Vial Sliding Scale -) 1 vial SQ ACHS KARINA PRN Reason: Protocol Last Admin: 03/01/17 07:59 Dose: Not Given Labetalol HCl (Normodyne Injection -) 20 mg IVPUSH Q4H-IV PRN PRN Reason: HYPERTENSION Last Admin: 03/01/17 06:34 Dose: 20 mg Labetalol HCl (Normodyne -) 400 mg PO BID [facility] Losartan Potassium (Cozaar -) 100 mg PO DAILY [facility] Mupirocin (Bactroban Ointment (For Decolonization) -) 1 applic NS BID [facility] Stop: 03/06/17 09:59 Nifedipine (Procardia Xl -) 60 mg PO BID [facility] Nitroglycerin (Tridil Injection -) 5 mcg IVPB TITR [facility] Last Admin: 03/01/17 02:34 Dose: 5 mcg Non-Formulary Medication (Pravastatin Sodium [Pravastatin Sodium]) 20 mg PO DAILY [facility] Spironolactone (Aldactone -) 100 mg PO DAILY [facility] A/P 71 year old woman with PMhx of ESRD on HD (MWF), Difficult to control hypertension, Renal Osteodystrophy who was sent to the ED from dialysis for uncontrolled hypertension and found to have hypertensive urgency. #Hypertensive Urgency Pt currently on Latebaol gtt Titrate as per ICU Restart Home Meds: Losartan 100mg, Aldactone 100mg, Nifedpine 60mg BID Resume Labetalol 400mg BID once Labetalol gtt is tapered off Will start Cardura this admission given recurrent admissions for hypertensive urgency Pt with HR in the 60s on BB so would be cautious with Clonidine #ESRD on HD Will plan for dialysis later in the day once BP is controlled #Hyperkalemia will correct with dialysis later today #Anemia No Epogen at this time given uncontrolled hypertension Trend CBC Thank you Will follow Alf Mcmahan DO
[2017-03-01] MEDS: SPIRONOLACTONE 25 MG TABLET (FP) PO SCH (10:35)
[2017-03-01] MEDS: LOSARTAN POTASSIUM 50 MG TABLET (FP) PO SCH (10:36)
[2017-03-01] MEDS: NIFEdipine E.R 60 MG TABLET (UD) PO SCH ×2 (10:36→22:43)
[2017-03-01] MEDS: DOXAZOSIN MESYLATE 1 MG TABLET PO SCH (11:48)
--- NOTE | 2017-03-01 13:25 | EKG ---
Test Reason : Blood Pressure : / mmHG Vent. Rate : 065 BPM Atrial Rate : 065 BPM P-R Int : 196 ms QRS Dur : 116 ms QT Int : 436 ms P-R-T Axes : 055 -35 096 degrees QTc Int : 453 ms NORMAL SINUS RHYTHM POSSIBLE LEFT ATRIAL ENLARGEMENT LEFT AXIS DEVIATION PULMONARY DISEASE PATTERN INCOMPLETE RIGHT BUNDLE BRANCH BLOCK T WAVE ABNORMALITY, CONSIDER LATERAL ISCHEMIA ABNORMAL ECG WHEN COMPARED WITH ECG OF 21-FEB-2017 20:29, NO SIGNIFICANT CHANGE WAS FOUND Confirmed by KLEVER NAVA MD ([id number]) on 03/01/2017 1:25:48 PM Referred By: Confirmed By:KLEVER NAVA MD
[2017-03-01] MEDS: CALCIUM ACETATE 667 MG CAPSULE (FP) PO SCH ×2 (13:33→17:18)
[2017-03-01] MEDS: LABETALOL HCL 200 MG TABLET (FP) PO SCH ×2 (13:33→22:43)
--- NOTE | 2017-03-01 13:37 | PN ---
Teaching Attending Note Name of Resident: Vanessa Orozco ATTENDING PHYSICIAN STATEMENT I saw and evaluated the patient. I reviewed the resident's note and discussed the case with the resident. I agree with the resident's findings and plan as documented. SUBJECTIVE: The patient seen and examined in the ICU. Awake and alert. Denies ZENDEJAS, chest pain, blurry vision, dizziness, etc. Remains on Labetalol drip. Intake & Output 02/26/17 02/27/17 02/28/17 03/01/17 23:59 23:59 23:59 23:59 Weight 134 lb 130 lb 8.218 oz Last Vital Signs Temp Pulse Resp BP Pulse Ox 99.2 F 66 22 202/81 98 03/01/17 10:00 03/01/17 13:37 03/01/17 12:53 03/01/17 13:37 03/01/17 07:34 Active Medications Calcium Acetate (Phoslo -) 667 mg PO TIDCM [facility] Last Admin: 03/01/17 13:33 Dose: 667 mg Chlorhexidine Gluconate (Hibiclens For Decolonization -) 1 applic TP HS [facility] Doxazosin Mesylate (Cardura -) 1 mg PO DAILY [facility] Last Admin: 03/01/17 11:48 Dose: 1 mg Labetalol HCl 1,000 mg/ (Dextrose) 1,000 mls @ 120 mls/hr IV TITR [facility] PRN Reason: 2 MG/MIN Last Titration: 03/01/17 13:37 Dose: 1.5 mg/min Insulin Aspart (Novolog Vial Sliding Scale -) 1 vial SQ ACHS [facility] PRN Reason: Protocol Last Admin: 03/01/17 07:59 Dose: Not Given Labetalol HCl (Normodyne Injection -) 20 mg IVPUSH Q4H-IV PRN PRN Reason: HYPERTENSION Last Admin: 03/01/17 06:34 Dose: 20 mg Labetalol HCl (Normodyne -) 400 mg PO BID [facility] Last Admin: 03/01/17 13:33 Dose: 400 mg Losartan Potassium (Cozaar -) 100 mg PO DAILY [facility] Last Admin: 03/01/17 10:36 Dose: 100 mg Mupirocin (Bactroban Ointment (For Decolonization) -) 1 applic NS BID [facility] Stop: 03/06/17 09:59 Last Admin: 03/01/17 13:38 Dose: 1 applic Nifedipine (Procardia Xl -) 60 mg PO BID [facility] Last Admin: 03/01/17 10:36 Dose: 60 mg Nitroglycerin (Tridil Injection -) 5 mcg IVPB TITR [facility] Last Admin: 03/01/17 02:34 Dose: 5 mcg Non-Formulary Medication (Pravastatin Sodium [Pravastatin Sodium]) 20 mg PO DAILY [facility] Spironolactone (Aldactone -) 100 mg PO DAILY [facility] Last Admin: 03/01/17 10:35 Dose: 100 mg Gen: NAD, awake and alert HEENT: NC/AT Neck: (-) JVD CVS: RRR Lungs: CTA Abd: soft NT/ND Ext: No edema, no clubbing or cyanosis, MURIEL AVF Laboratory Results - last 24 hr 03/01/17 03/01/17 03/01/17 00:21 00:21 00:21 WBC 8.6 D RBC 4.06 Hgb 10.4 L Hct 33.3 MCV 81.9 MCHC 31.4 L RDW 17.7 H Plt Count 163 D MPV 8.6 Neutrophils % 74.9 Lymphocytes % 11.6 D Monocytes % 8.5 Eosinophils % 3.7 Basophils % 1.3 INR 1.12 Sodium 137 Potassium 4.6 Chloride 97 L Carbon Dioxide 25 Anion Gap 15 BUN 30 H D Creatinine 5.8 H D Creat Clearance w eGFR 7.19 POC Glucometer Random Glucose 140 H D Calcium 9.8 Magnesium 2.5 H Total Bilirubin 0.5 AST 14 L ALT 19 Alkaline Phosphatase 111 Creatine Kinase 81 Troponin I 0.06 H Total Protein 7.1 Albumin 3.9 Blood Type Antibody Screen 03/01/17 03/01/17 03/01/17 00:21 07:58 08:00 WBC RBC Hgb Hct MCV MCHC RDW Plt Count MPV Neutrophils % Lymphocytes % Monocytes % Eosinophils % Basophils % INR Sodium Cancelled Potassium Cancelled Chloride Cancelled Carbon Dioxide Cancelled Anion Gap Cancelled BUN Cancelled Creatinine Cancelled Creat Clearance w eGFR POC Glucometer [phone] Random Glucose Cancelled Calcium Cancelled Magnesium Total Bilirubin AST ALT Alkaline Phosphatase Creatine Kinase Troponin I Total Protein Albumin Blood Type O POSITIVE Antibody Screen Negative 03/01/17 08:00 WBC RBC Hgb Hct MCV MCHC RDW Plt Count MPV Neutrophils % Lymphocytes % Monocytes % Eosinophils % Basophils % INR Sodium 136 Potassium 5.4 H Chloride 98 Carbon Dioxide 26 Anion Gap 12 BUN 34 H Creatinine 6.3 H Creat Clearance w eGFR POC Glucometer Random Glucose 150 H Calcium 10.0 Magnesium Total Bilirubin AST ALT Alkaline Phosphatase Creatine Kinase 112 Troponin I 0.06 H Total Protein Albumin Blood Type Antibody Screen A/P Suspected Hypertensive Emergency versus Urgency (+) Troponin ESRD on HD (MWF) History of poorly/difficult to control hypertension Renal Osteodystrophy Restart home meds Taper IV Labetalol after PO meds have been given HD per Renal Follow K+ level Decolonization Dr Haynes Critical care time spent in reviewing chart, evaluating patient and formulating plan 36 min
[2017-03-01] MEDS: MUPIROCIN 2% TOPICAL OINTMENT FOR DECOLONIZATION NS SCH ×2 (13:38→22:44)
--- NOTE | 2017-03-01 15:43 | PN ---
Physical Exam: SUBJECTIVE: Patient seen and examined Patient resting in bed NAD. no acute events. Hypertensive 210/96 on labetalol drip. Afebrile, HR 68. States she feels at her baseline. states she is compliant with meds at home. has baseline cough with clear flem. Almost completely anuric. HD MWF. Denies h/a, n/v, f/c, chest pain, palpitations, sob, edema, abd pain, n/v, diarrhea. OBJECTIVE: Vital Signs Period Temp Pulse Resp BP Sys/Parker Pulse Ox Last 24 Hr 98 F-99.2 F 64-75 16-22 202-232/78-97 97-98 GENERAL: The patient is awake, alert, and fully oriented, in no acute distress. HEAD: Normal with no signs of trauma. EYES: PERRL, extraocular movements intact, sclera anicteric, conjunctiva clear. No ptosis. ENT:moist mucous membranes. NECK: supple. LUNGS: Breath sounds equal, clear to auscultation bilaterally HEART: Regular rate and rhythm, S1, S2 systolic murmur best heart at left sup sternal boarder with mid syst click ABDOMEN: Soft, nontender, nondistended, normoactive bowel sounds EXTREMITIES: 2+ pulses, warm, well-perfused, no edema. NEUROLOGICAL: Cranial nerves II through XII grossly intact. Normal speech, gait not observed. PSYCH: Normal mood, normal affect. SKIN: Warm, dry Laboratory Results - last 24 hr 03/01/17 03/01/17 03/01/17 07:58 08:00 08:00 Sodium Cancelled 136 Potassium Cancelled 5.4 H Chloride Cancelled 98 Carbon Dioxide Cancelled 26 Anion Gap Cancelled 12 BUN Cancelled 34 H Creatinine Cancelled 6.3 H POC Glucometer [phone] Random Glucose Cancelled 150 H Calcium Cancelled 10.0 Creatine Kinase 112 Troponin I 0.06 H 03/01/17 13:45 Sodium Potassium Chloride Carbon Dioxide Anion Gap BUN Creatinine POC Glucometer [phone] Random Glucose Calcium Creatine Kinase Troponin I Active Medications Generic Name Dose Route Start Last Admin Trade Name Freq PRN Reason Stop Dose Admin Calcium Acetate 667 mg 03/01/17 08:28 03/01/17 13:33 Phoslo - PO 667 mg TIDCM [facility]ARINA Administration Chlorhexidine Gluconate 1 applic 03/01/17 22:00 Hibiclens For Decolonization - TP HS [facility] Doxazosin Mesylate 1 mg 03/01/17 12:00 03/01/17 11:48 Cardura - PO 1 mg DAILY [facility] Administration Labetalol HCl 1,000 mg/ 1,000 mls @ 120 mls/hr 03/01/17 08:30 03/01/17 13:37 Dextrose IV 1.5 mg/min TITR [facility]INA Titration 2 MG/MIN Insulin Aspart 1 vial 03/01/17 07:00 03/01/17 13:49 Novolog Vial Sliding Scale - SQ 2 units ACHS KARINA Administration Protocol Labetalol HCl 20 mg 03/01/17 06:19 03/01/17 06:34 Normodyne Injection - IVPUSH 20 mg Q4H-IV PRN Administration HYPERTENSION Labetalol HCl 400 mg 03/01/17 10:45 03/01/17 13:33 Normodyne - PO 400 mg BID [facility] Administration Losartan Potassium 100 mg 03/01/17 10:45 03/01/17 10:36 Cozaar - PO 100 mg DAILY [facility] Administration Mupirocin 1 applic 03/01/17 10:00 03/01/17 13:38 Bactroban Ointment (For Decolonization) - NS 03/06/17 09:59 1 applic BID [facility] Administration Nifedipine 60 mg 03/01/17 10:45 03/01/17 10:36 Procardia Xl - PO 60 mg BID [facility] Administration Nitroglycerin 5 mcg 03/01/17 02:15 03/01/17 02:34 Tridil Injection - IVPB 5 mcg TITR [facility] Administration Non-Formulary Medication 20 mg 03/01/17 10:00 Pravastatin Sodium [Pravastatin Sodium] PO DAILY [facility] Spironolactone 100 mg 03/01/17 10:45 03/01/17 10:35 Aldactone - PO 100 mg DAILY [facility] Administration ASSESSMENT/PLAN: This is a 71 yo F with ESRD on HD, HTN, CHF, afib, referred from dialysis due to elevated BP Hypertensive emergency with MITCH (acute on chronic, last Cr 2.8, current Cr is post-dialysis and elevated) -wean off labetalol ggt -start labetalol 400 bid once off drip -start cozaar 100d, procardia xl 60 bid, aldactone 100 d at noon -start cardura 1 daily at 3 pm if BP stilll uncontrolled -frequent BP monitoring ESRD on HD with MITCH -creat 2.7 on last dc -almost anuric at baseline -HD today -renal on case right sided CHF -due to severe pulm HTN -last TTE 12/25/16 RVP 60 mmHG -currently euvolemic -cardio on case Severe pulm HTN -may benefit from ac -hold ASA until BP better controlled DM -BGM ACHS -NISS ACHS A1c 6.8 on 12/23/16 FEN No IVF mild hyperkalemia follow after HD renally, diabetic, low na scd's Dispo: ICU Problem List - Problems (1) Chronic renal failure Code(s): N18.9 - CHRONIC KIDNEY DISEASE, UNSPECIFIED Qualifiers: Chronic kidney disease stage: stage 5 Qualified Code(s): N18.5 - Chronic kidney disease, stage 5 (2) Diabetes type 2, controlled Code(s): E11.9 - TYPE 2 DIABETES MELLITUS WITHOUT COMPLICATIONS Qualifiers: Diabetes mellitus complication status: with kidney complications Chronic kidney disease stage: stage 5, not on chronic dialysis (3) Hypertensive urgency Code(s): I10 - ESSENTIAL (PRIMARY) HYPERTENSION (4) Murmur, cardiac Code(s): R01.1 - CARDIAC MURMUR, UNSPECIFIED (5) Paroxysmal atrial fibrillation Code(s): I48.0 - PAROXYSMAL ATRIAL FIBRILLATION (6) Anemia Code(s): D64.9 - ANEMIA, UNSPECIFIED Qualifiers: Anemia type: unspecified type Qualified Code(s): D64.9 - Anemia, unspecified (7) Asymptomatic hypertensive urgency Code(s): I16.0 - HYPERTENSIVE URGENCY (8) Renal insufficiency Code(s): N28.9 - DISORDER OF KIDNEY AND URETER, UNSPECIFIED (9) Anemia, chronic renal failure Code(s): N18.9 - CHRONIC KIDNEY DISEASE, UNSPECIFIED D63.1 - ANEMIA IN CHRONIC KIDNEY DISEASE (10) CKD (chronic kidney disease) Code(s): N18.9 - CHRONIC KIDNEY DISEASE, UNSPECIFIED (11) Diabetes Code(s): E11.9 - TYPE 2 DIABETES MELLITUS WITHOUT COMPLICATIONS (12) End stage renal disease Code(s): N18.6 - END STAGE RENAL DISEASE (13) Hypertension Code(s): I10 - ESSENTIAL (PRIMARY) HYPERTENSION Qualifiers: Hypertension type: essential hypertension Qualified Code(s): I10 - Essential (primary) hypertension (14) Hypertensive renal disease Code(s): I12.9 - HYPERTENSIVE CHRONIC KIDNEY DISEASE W STG 1-4/UNSP CHR KDNY (15) Congestive heart failure Code(s): I50.9 - HEART FAILURE, UNSPECIFIED Visit type - Emergency Visit Emergency Visit: Yes ED Registration Date: 03/01/17 Care time: The patient presented to the Emergency Department on the above date and was hospitalized for further evaluation of their emergent condition. - New Patient This patient is new to me today: Yes Date on this admission: 03/01/17 - Critical Care Critical Care patient: Yes Total Critical Care Time (in minutes): 45 Critical Care Statement: The care of this patient involved high complexity decision making to prevent further life threatening deterioration of the patient 's condition and/or to evalute & treat vital organ system(s) failure or risk of failure. - Discharge Referral Referred to [facility] Med P.C.: No
[2017-03-01 16:17] LABS: TROPONIN I 0.05 ng/ml (0.00-0.05)
--- NOTE | 2017-03-01 16:23 | PN ---
Physical Exam: SUBJECTIVE: Patient seen and examined at bed side in ICU. Awake and alert. patient BP currently 105/59 will give 500cc bolus of NS, and monitor q30m. patient currently denies cp, sob, ZENDEJAS, N/V, vision change. after 2 hours patient BP inc to 121/53, HR 66, auscultated mild crackles on right, left clear to auscultation. gave 250cc Bolus NS as patient plan for HD today per nephrology. patient currently denies cp, sob, ZENDEJAS, N/V, vision change. Discussed case with Dr. martínez and we will monitor in ICU, and HD today with out taking fluid off. OBJECTIVE: Vital Signs Period Temp Pulse Resp BP Sys/Parker Pulse Ox Last 24 Hr 98 F-99.2 F 64-75 16-22 135-232/54-97 97-98 GENERAL: The patient is awake, alert, and fully oriented, in NAD, sitting comfortably watching TV, eating dinner. HEAD: Normal with no signs of trauma. EYES: PERRL, extraocular movements intact, sclera anicteric, conjunctiva clear. No ptosis. ENT: R eye lateral scelera red, oropharynx clear without exudates, moist mucous membranes. NECK: Trachea midline, full range of motion, supple. LUNGS: Breath sounds equal, clear to auscultation bilaterally, no wheezes, mild fine crackles right base, no accessory muscle use. HEART: Regular rate and rhythm, S1, S2, grade 2 systolic murmur, rub or gallop. ABDOMEN: Soft Obese, nontender, nondistended, normoactive bowel sounds, no guarding, no rebound, no hepatosplenomegaly, no masses. EXTREMITIES: 2+ pulses, warm, well-perfused, trace edema. NEUROLOGICAL: Cranial nerves II through XII grossly intact. Normal speech, gait not observed. PSYCH: Normal mood, normal affect. SKIN: Warm, dry, normal turgor, no rashes or lesions noted Laboratory Results - last 24 hr 03/01/17 03/01/17 03/01/17 07:58 08:00 08:00 Sodium Cancelled 136 Potassium Cancelled 5.4 H Chloride Cancelled 98 Carbon Dioxide Cancelled 26 Anion Gap Cancelled 12 BUN Cancelled 34 H Creatinine Cancelled 6.3 H POC Glucometer [phone] Random Glucose Cancelled 150 H Calcium Cancelled 10.0 Creatine Kinase 112 Troponin I 0.06 H 03/01/17 13:45 Sodium Potassium Chloride Carbon Dioxide Anion Gap BUN Creatinine POC Glucometer [phone] Random Glucose Calcium Creatine Kinase Troponin I Active Medications Generic Name Dose Route Start Last Admin Trade Name Freq PRN Reason Stop Dose Admin Artificial Tears 1 drop 03/01/17 22:00 Artificial Tears OU BID [facility]INA Atorvastatin Calcium 10 mg 03/01/17 22:00 Lipitor - PO HS [facility] Calcium Acetate 667 mg 03/01/17 08:28 03/01/17 13:33 Phoslo - PO 667 mg TIDCM [facility] Administration Chlorhexidine Gluconate 1 applic 03/01/17 22:00 Hibiclens For Decolonization - TP HS [facility] Doxazosin Mesylate 1 mg 03/01/17 12:00 03/01/17 11:48 Cardura - PO 1 mg DAILY [facility] Administration Labetalol HCl 1,000 mg/ 1,000 mls @ 120 mls/hr 03/01/17 08:30 03/01/17 16:01 Dextrose IV 0 mg/min TITR [facility] Titration 2 MG/MIN Insulin Aspart 1 vial 03/01/17 07:00 03/01/17 13:49 Novolog Vial Sliding Scale - SQ 2 units ACHS KARINA Administration Protocol Labetalol HCl 20 mg 03/01/17 06:19 03/01/17 06:34 Normodyne Injection - IVPUSH 20 mg Q4H-IV PRN Administration HYPERTENSION Labetalol HCl 400 mg 03/01/17 10:45 03/01/17 13:33 Normodyne - PO 400 mg BID [facility] Administration Losartan Potassium 100 mg 03/01/17 10:45 03/01/17 10:36 Cozaar - PO 100 mg DAILY [facility] Administration Mupirocin 1 applic 03/01/17 10:00 03/01/17 13:38 Bactroban Ointment (For Decolonization) - NS 03/06/17 09:59 1 applic BID [facility] Administration Nifedipine 60 mg 03/01/17 10:45 03/01/17 10:36 Procardia Xl - PO 60 mg BID [facility] Administration Spironolactone 100 mg 03/01/17 10:45 03/01/17 10:35 Aldactone - PO 100 mg DAILY [facility] Administration ASSESSMENT/PLAN: 71 yo F with ESRD on HD, HTN difficult to control, Renal Osteodystrophy , CHF, afib, sent from dialysis due to elevated BP and troponins. Hypertensive emergency vs Urgency: Isolated HTN (SBP 150's to 160's at home). small inc in troponin inlight of ESRD -started home cozaar 100d, procardia xl 60 bid, aldactone 100 d at noon -started cardura 1 daily at 3 pm then d/c labetalol ggt, then started labetalol 400BID. Blood pressure goal 160's for today. patient BP currently 105/59 will give 500cc bolus of NS, and monitor q30m. patient currently denies cp, sob, ZENDEJAS, N/V, vision change. after 2 hours patient BP inc to 121/53, HR 66, auscultated mild crackles on right, left clear to auscultation. gave 250cc Bolus NS as patient plan for HD today per nephrology. ESRD on HD MWF. -anuric at baseline -Nephrology plan for dialysis once BP controlled. Hyperkalemia; for dialysis BMP right sided CHF -due to severe pulm HTN -last TTE 12/25/16 RVP 60 mmHG -currently euvolemic -cardio on case Severe pulm HTN -may benefit from ac -hold ASA until BP better controlled Anemia: 2/2 ESRD and anemia of chronic disease No Epogen at this time given uncontrolled hypertension repeat H/H DM : A1c 6.8 -ISS FEN Bolus 500cc IV NS mild hyperkalemia follow after HD renally, diabetic, low na scd's Dispo: will continue to follow in ICU Visit type - Emergency Visit Emergency Visit: Yes ED Registration Date: 03/01/17 Care time: The patient presented to the Emergency Department on the above date and was hospitalized for further evaluation of their emergent condition. - New Patient This patient is new to me today: Yes Date on this admission: 03/01/17 - Critical Care Critical Care patient: Yes Total Critical Care Time (in minutes): 56 Critical Care Statement: The care of this patient involved high complexity decision making to prevent further life threatening deterioration of the patient 's condition and/or to evalute & treat vital organ system(s) failure or risk of failure.
[2017-03-01] MEDS ORDERED: SODIUM CHLORIDE 500 ML IV STA (16:26)
[2017-03-01] MEDS ORDERED: HEMOQUE TEST 1 EACH EACH ONE (17:33)
[2017-03-01] MEDS ORDERED: SODIUM CHLORIDE 250 ML IV STA (18:39)
--- NOTE | 2017-03-01 19:04 | PN ---
Teaching Attending Note Name of Resident: Sinai Segura ATTENDING PHYSICIAN STATEMENT I saw and evaluated the patient. I reviewed the resident's note and discussed the case with the resident. I agree with the resident's findings and plan as documented. Patient is in ICU, Japanese speaking lady. Presented with hypertensive emergency. Vital Signs Temperature 98.2 F 03/01/17 17:29 Pulse Rate 66 03/01/17 18:37 Respiratory Rate 19 03/01/17 18:37 Blood Pressure 118/52 03/01/17 18:37 O2 Sat by Pulse Oximetry (%) 94 L 03/01/17 17:38 CBCD WBC 8.6 K/mm3 (4.0-10.0) D 03/01/17 00:21 RBC 4.06 M/mm3 (3.60-5.2) 03/01/17 00:21 Hgb 10.4 GM/dL (10.7-15.3) L 03/01/17 00:21 Hct 33.3 % (32.4-45.2) 03/01/17 00:21 MCV 81.9 fl (80-96) 03/01/17 00:21 MCHC 31.4 g/dl (32.0-36.0) L 03/01/17 00:21 RDW 17.7 % (11.6-15.6) H 03/01/17 00:21 Plt Count 163 K/MM3 (134-434) D 03/01/17 00:21 MPV 8.6 fl (7.5-11.1) 03/01/17 00:21 CMP Sodium 136 mmol/L (136-145) 03/01/17 08:00 Potassium 5.4 mmol/L (3.5-5.1) H 03/01/17 08:00 Chloride 98 mmol/L (98-107) 03/01/17 08:00 Carbon Dioxide 26 mmol/L (21-32) 03/01/17 08:00 Anion Gap 12 (8-16) 03/01/17 08:00 BUN 34 mg/dL (7-18) H 03/01/17 08:00 Creatinine 6.3 mg/dL (0.55-1.02) H 03/01/17 08:00 Creat Clearance w eGFR 7.19 (>60) 03/01/17 00:21 Random Glucose 150 mg/dL (74-106) H 03/01/17 08:00 Calcium 10.0 mg/dL (8.5-10.1) 03/01/17 08:00 Total Bilirubin 0.5 mg/dL (0.2-1.0) 03/01/17 00:21 AST 14 U/L (15-37) L 03/01/17 00:21 ALT 19 U/L (12-78) 03/01/17 00:21 Alkaline Phosphatase 111 U/L (45-117) 03/01/17 00:21 Total Protein 7.1 g/dl (6.4-8.2) 03/01/17 00:21 Albumin 3.9 g/dl (3.4-5.0) 03/01/17 00:21 CARDIAC ENZYMES Creatine Kinase 68 IU/L (26-192) 03/01/17 15:00 Troponin I 0.05 ng/ml (0.00-0.05) 03/01/17 15:00 Current Medications Generic Name Dose Route Start Last Admin Trade Name Freq PRN Reason Stop Dose Admin Artificial Tears 1 drop 03/01/17 22:00 Artificial Tears OU BID [facility] Atorvastatin Calcium 10 mg 03/01/17 22:00 Lipitor - PO HS [facility] Calcium Acetate 667 mg 03/01/17 08:28 03/01/17 17:18 Phoslo - PO 667 mg TIDCM KARINA Administration Chlorhexidine Gluconate 1 applic 03/01/17 22:00 Hibiclens For Decolonization - TP HS K[facility]INA Doxazosin Mesylate 1 mg 03/01/17 12:00 03/01/17 11:48 Cardura - PO 1 mg DAILY [facility] Administration Labetalol HCl 1,000 mg/ 1,000 mls @ 120 mls/hr 03/01/17 08:30 03/01/17 16:01 Dextrose IV 0 mg/min TITR K[facility]INA Titration 2 MG/MIN Sodium Chloride 250 mls @ 500 mls/hr 03/01/17 18:39 03/01/17 18:00 Normal Saline - IV 03/01/17 19:08 500 mls/hr ASDIR STA Administration Insulin Aspart 1 vial 03/01/17 07:00 03/01/17 17:40 Novolog Vial Sliding Scale - SQ Not Given ACHS [facility] Protocol Labetalol HCl 20 mg 03/01/17 06:19 03/01/17 06:34 Normodyne Injection - IVPUSH 20 mg Q4H-IV PRN Administration HYPERTENSION Labetalol HCl 400 mg 03/01/17 10:45 03/01/17 13:33 Normodyne - PO 400 mg BID KARINA Administration Losartan Potassium 100 mg 03/01/17 10:45 03/01/17 10:36 Cozaar - PO 100 mg DAILY [facility]INA Administration Mupirocin 1 applic 03/01/17 10:00 03/01/17 13:38 Bactroban Ointment (For Decolonization) - NS 03/06/17 09:59 1 applic BID KARINA Administration Nifedipine 60 mg 03/01/17 10:45 03/01/17 10:36 Procardia Xl - PO 60 mg BID KARINA Administration Spironolactone 100 mg 03/01/17 10:45 03/01/17 10:35 Aldactone - PO 100 mg DAILY KARINA Administration Home Medications Medication Instructions Recorded Calcium Acetate [Phoslo -] 667 mg PO TID 01/08/17 Losartan Potassium 100 mg PO DAILY 01/08/17 Nifedipine ER [Procardia XL -] 60 mg PO BID 01/08/17 Pravastatin Sodium 20 mg PO DAILY 01/08/17 Spironolactone 50 mg PO DAILY 01/08/17 Labetalol HCl [Normodyne -] 400 mg PO BID #0 tablet 01/11/17 Spironolactone 50 mg PO BID #60 tablet 02/10/17 Torsemide [Demadex -] 40 mg PO DAILY #60 tablet 02/10/17 Cardiac: S1S2 positive, JAEL 2 LE: No edema ASSESSMENT AND PLAN: This is a 71 yo F with ESRD on HD, HTN, CHF, afib, referred from dialysis due to elevated BP # Hypertensive emergency on labetalol ggt , weaned off nitrodrip , patient is also on Cozaar, procardia Xl and on aldactone will continue; and on consult ;added cardura 1mg daily #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
[2017-03-01] MEDS ORDERED: CHLORHEXIDINE GLUCONATE 4% CLEANSER FOR DECOLONIZATION TP SCH (22:00)
[2017-03-01] MEDS ORDERED: ATORVASTATIN CA 10 MG TABLET (FP) PO SCH (22:00)
[2017-03-01] MEDS: ARTIFICIAL TEARS (POLYVINYL ALCOHOL 1.4%) OPTH DROPS OU SCH (22:43)
[2017-03-02 06:29] LABS: MCH 26.8 pg (25.7-33.7); MEAN PLT VOLUME 8.8 fl (7.5-11.1); PLATELET COUNT 159 K/MM3 (134-434); RDW 18.3 % (11.6-15.6); WHITE BLOOD COUNT 6.2 K/mm3 (4.0-10.0)
[2017-03-02 06:31] LABS: CALCIUM 8.8 mg/dL (8.5-10.1); COCKROFT - GAULT 11.05; CREATININE 4.3 mg/dL (0.55-1.02); MAGNESIUM 1.9 mg/dL (1.8-2.4); PHOSPHOROUS 3.3 mg/dL (2.5-4.9)
[2017-03-02] MEDS: INSULIN SLIDING SCALE (NOVOLOG) 1 VIAL SQ SCH ×4 (06:58→22:03)
[2017-03-02] MEDS: LABETALOL HCL INJECTION 1,000 MG in DEXTROSE 5%-WATER - 800 ML IV SCH (07:34)
[2017-03-02] MEDS: CALCIUM ACETATE 667 MG CAPSULE (FP) PO SCH ×3 (08:20→17:28)
[2017-03-02] MEDS ORDERED: ACETAMINOPHEN 325 MG TABLET (FP) PO PRN ×3 (08:53→12:31)
--- NOTE | 2017-03-02 09:03 | PN ---
Progress Note, Physician Chief Complaint: feeling better BP trend improving TELE: NSR ECHO: normal LV with TR and moderate PHTN - Current Medication List Current Medications: Active Medications Acetaminophen (Tylenol -) 650 mg PO Q4H PRN PRN Reason: FEVER OR PAIN Last Admin: 03/02/17 08:55 Dose: 650 mg Artificial Tears (Artificial Tears) 1 drop OU BID [facility] Last Admin: 03/01/17 22:43 Dose: 1 drop Atorvastatin Calcium (Lipitor -) 10 mg PO HS [facility] Last Admin: 03/01/17 22:43 Dose: 10 mg Calcium Acetate (Phoslo -) 667 mg PO TIDCM [facility] Last Admin: 03/02/17 08:20 Dose: 667 mg Chlorhexidine Gluconate (Hibiclens For Decolonization -) 1 applic TP HS [facility] Last Admin: 03/01/17 22:43 Dose: 1 applic Doxazosin Mesylate (Cardura -) 1 mg PO DAILY [facility] Last Admin: 03/01/17 11:48 Dose: 1 mg Labetalol HCl 1,000 mg/ (Dextrose) 1,000 mls @ 120 mls/hr IV TITR [facility] PRN Reason: 2 MG/MIN Last Admin: 03/02/17 07:34 Dose: Not Given Insulin Aspart (Novolog Vial Sliding Scale -) 1 vial SQ ACHS [facility] PRN Reason: Protocol Last Admin: 03/02/17 06:58 Dose: Not Given Labetalol HCl (Normodyne Injection -) 20 mg IVPUSH Q4H-IV PRN PRN Reason: HYPERTENSION Last Admin: 03/01/17 06:34 Dose: 20 mg Labetalol HCl (Normodyne -) 400 mg PO BID [facility] Last Admin: 03/01/17 22:43 Dose: 400 mg Losartan Potassium (Cozaar -) 100 mg PO DAILY [facility] Last Admin: 03/01/17 10:36 Dose: 100 mg Mupirocin (Bactroban Ointment (For Decolonization) -) 1 applic NS BID [facility] Stop: 03/06/17 09:59 Last Admin: 03/01/17 22:44 Dose: 1 applic Nifedipine (Procardia Xl -) 60 mg PO BID [facility] Last Admin: 03/01/17 22:43 Dose: 60 mg Spironolactone (Aldactone -) 100 mg PO DAILY [facility] Last Admin: 03/01/17 10:35 Dose: 100 mg - Objective Vital Signs: Vital Signs Temperature 97.6 F 03/02/17 07:00 Pulse Rate 66 03/02/17 07:52 Respiratory Rate 18 03/02/17 07:52 Blood Pressure 181/66 03/02/17 07:52 O2 Sat by Pulse Oximetry (%) 94 L 03/02/17 07:53 Constitutional: Yes: No Distress Eyes: Yes: Conjunctiva Clear HENT: Yes: Atraumatic Cardiovascular: Yes: Regular Rate and Rhythm, Murmur (2/6 RSB) Respiratory: Yes: CTA Bilaterally Gastrointestinal: Yes: Soft Edema: No Neurological: Yes: Alert Labs: CBC, BMP 03/02/17 05:15 03/02/17 05:15 INR, PTT INR 1.12 (0.82-1.09) 03/01/17 00:21 Laboratory Tests 03/02/17 03/02/17 05:15 05:15 WBC 6.2 Hct 30.2 L Plt Count 159 Sodium 139 Potassium 3.8 D BUN 17 D Magnesium 1.9 D - ....Imaging EKG: Image Reviewed Problem List - Problems (1) Hypertensive urgency Code(s): I10 - ESSENTIAL (PRIMARY) HYPERTENSION (2) Chronic renal failure Code(s): N18.9 - CHRONIC KIDNEY DISEASE, UNSPECIFIED Qualifiers: Chronic kidney disease stage: stage 5 Qualified Code(s): N18.5 - Chronic kidney disease, stage 5 (3) Diabetes type 2, controlled Code(s): E11.9 - TYPE 2 DIABETES MELLITUS WITHOUT COMPLICATIONS Qualifiers: Diabetes mellitus complication status: with kidney complications Chronic kidney disease stage: stage 5, not on chronic dialysis (4) Abnormal EKG Code(s): R94.31 - ABNORMAL ELECTROCARDIOGRAM [ECG] [EKG] (5) Murmur, cardiac Code(s): R01.1 - CARDIAC MURMUR, UNSPECIFIED (6) Paroxysmal atrial fibrillation Code(s): I48.0 - PAROXYSMAL ATRIAL FIBRILLATION Assessment/Plan Problem List - Problems (1) Hypertensive urgency Assessment/Plan: -Overall trend improving -Transitioning to PO meds -Telemetry -Renal following. Code(s): I10 - ESSENTIAL (PRIMARY) HYPERTENSION (2) Chronic renal failure Assessment/Plan: -regular HD Code(s): N18.9 - CHRONIC KIDNEY DISEASE, UNSPECIFIED Qualifiers: Chronic kidney disease stage: stage 5 Qualified Code(s): N18.5 - Chronic kidney disease, stage 5 (3) Diabetes type 2, controlled Assessment/Plan: -management as per PMD Code(s): E11.9 - TYPE 2 DIABETES MELLITUS WITHOUT COMPLICATIONS Qualifiers: Diabetes mellitus complication status: with kidney complications Chronic kidney disease stage: stage 5, not on chronic dialysis (4) Abnormal EKG Assessment/Plan: -with LAE, consistent with chronic HTN -Echo with normal LV function Code(s): R94.31 - ABNORMAL ELECTROCARDIOGRAM [ECG] [EKG] (5) Murmur, cardiac Assessment/Plan: -Echo confirms TR with PHTN Code(s): R01.1 - CARDIAC MURMUR, UNSPECIFIED (6) Paroxysmal atrial fibrillation Assessment/Plan: -There is documented h/o PAF in EMR although patient denies -Prior CVA -Continue tele-- thus far no AF detected -try to obtain old records to clarify -home med list does not include an anticoagulant; would start ASA 81mg daily for now if no contraindications when BP is more controlled. Code(s): I48.0 - PAROXYSMAL ATRIAL FIBRILLATION
[2017-03-02] MEDS ORDERED: PT OWN MED DRAWER 7, Y5N ONE (09:42)
[2017-03-02] MEDS: DOXAZOSIN MESYLATE 1 MG TABLET PO SCH (09:43)
[2017-03-02] MEDS: LOSARTAN POTASSIUM 50 MG TABLET (FP) PO SCH (09:43)
[2017-03-02] MEDS: SPIRONOLACTONE 25 MG TABLET (FP) PO SCH (09:43)
[2017-03-02] MEDS: MUPIROCIN 2% TOPICAL OINTMENT FOR DECOLONIZATION NS SCH (09:43)
[2017-03-02] MEDS: LABETALOL HCL 200 MG TABLET (FP) PO SCH ×2 (09:43→22:02)
[2017-03-02] MEDS: ARTIFICIAL TEARS (POLYVINYL ALCOHOL 1.4%) OPTH DROPS OU SCH ×2 (09:43→22:04)
[2017-03-02] MEDS: NIFEdipine E.R 60 MG TABLET (UD) PO SCH ×2 (09:44→22:03)
--- NOTE | 2017-03-02 11:18 | PN ---
Physical Exam: SUBJECTIVE: Patient seen and examined Patient resting in bed NAD. BP better controlled on PO meds 170/62 off labetalol drip. Afebrile, HR 70. s/p HD yesterday removed 2.5 kg. hypertensive after HD. episode of relative hypotension 117/62 on PO meds, given 500 cc bolus IVF. R eye red due to mild self inflicted trauma/scratch. no change in vision or pain. Mild frontal h/a. States she feels at her baseline. Denies h/a, n/v, f/ c, chest pain, palpitations, sob, edema, abd pain, n/v, diarrhea OBJECTIVE: Vital Signs Period Temp Pulse Resp BP Sys/Parker Pulse Ox Last 24 Hr 97.4 F-98.5 F 60-69 16-24 112-221/50-83 94-94 GENERAL: The patient is awake, alert, and fully oriented, in no acute distress. HEAD: Normal with no signs of trauma. EYES: PERRL, extraocular movements intact, sclera anicteric, R conjunctiva blood shot. No ptosis. vision intact ENT:moist mucous membranes. NECK: supple. LUNGS: Breath sounds equal, clear to auscultation bilaterally HEART: Regular rate and rhythm, S1, S2 systolic murmur best heart at left sup sternal boarder with mid syst click ABDOMEN: Soft, nontender, nondistended, normoactive bowel sounds EXTREMITIES: 2+ pulses, warm, well-perfused, no edema. NEUROLOGICAL: Cranial nerves II through XII grossly intact. Normal speech, gait not observed. PSYCH: Normal mood, normal affect. SKIN: Warm, dry Laboratory Results - last 24 hr 03/01/17 03/01/17 03/01/17 13:45 15:00 17:35 WBC RBC Hgb Hct MCV MCHC RDW Plt Count MPV Sodium Potassium Chloride Carbon Dioxide Anion Gap BUN Creatinine POC Glucometer 235.03252 194.12644 Random Glucose Calcium Phosphorus Magnesium Creatine Kinase 68 Troponin I 0.05 03/01/17 03/02/17 03/02/17 21:23 05:15 05:15 WBC 6.2 RBC 3.73 Hgb 10.0 L Hct 30.2 L MCV 81.0 MCHC 33.0 RDW 18.3 H Plt Count 159 MPV 8.8 Sodium 139 Potassium 3.8 D Chloride 97 L Carbon Dioxide 30 Anion Gap 12 BUN 17 D Creatinine 4.3 H D POC Glucometer [phone] Random Glucose 143 H Calcium 8.8 Phosphorus 3.3 D Magnesium 1.9 D Creatine Kinase Troponin I 03/02/17 10:32 WBC RBC Hgb Hct MCV MCHC RDW Plt Count MPV Sodium Potassium Chloride Carbon Dioxide Anion Gap BUN Creatinine POC Glucometer 174.30597 Random Glucose Calcium Phosphorus Magnesium Creatine Kinase Troponin I Active Medications Generic Name Dose Route Start Last Admin Trade Name Freq PRN Reason Stop Dose Admin Acetaminophen 650 mg 03/02/17 08:53 03/02/17 08:55 Tylenol - PO 650 mg Q4H PRN Administration FEVER OR PAIN Artificial Tears 1 drop 03/01/17 22:00 03/02/17 09:43 Artificial Tears OU 1 drop BID [facility]INA Administration Atorvastatin Calcium 10 mg 03/01/17 22:00 03/01/17 22:43 Lipitor - PO 10 mg HS [facility]INA Administration Calcium Acetate 667 mg 03/01/17 08:28 03/02/17 08:20 Phoslo - PO 667 mg TIDCM [facility]INA Administration Chlorhexidine Gluconate 1 applic 03/01/17 22:00 03/01/17 22:43 Hibiclens For Decolonization - TP 1 applic HS [facility] Administration Doxazosin Mesylate 1 mg 03/01/17 12:00 03/02/17 09:43 Cardura - PO 1 mg DAILY [facility] Administration Labetalol HCl 1,000 mg/ 1,000 mls @ 120 mls/hr 03/01/17 08:30 03/02/17 07:34 Dextrose IV Not Given TITR KARINA 2 MG/MIN Insulin Aspart 1 vial 03/01/17 07:00 03/02/17 10:34 Novolog Vial Sliding Scale - SQ Not Given ACHS KARINA Protocol Labetalol HCl 20 mg 03/01/17 06:19 03/01/17 06:34 Normodyne Injection - IVPUSH 20 mg Q4H-IV PRN Administration HYPERTENSION Labetalol HCl 400 mg 03/01/17 10:45 03/02/17 09:43 Normodyne - PO 400 mg BID [facility] Administration Losartan Potassium 100 mg 03/01/17 10:45 03/02/17 09:43 Cozaar - PO 100 mg DAILY [facility] Administration Mupirocin 1 applic 03/01/17 10:00 03/02/17 09:43 Bactroban Ointment (For Decolonization) - NS 03/06/17 09:59 1 applic BID [facility] Administration Nifedipine 60 mg 03/01/17 10:45 03/02/17 09:44 Procardia Xl - PO 60 mg BID [facility] Administration Spironolactone 100 mg 03/01/17 10:45 03/02/17 09:43 Aldactone - PO 100 mg DAILY [facility] Administration ASSESSMENT/PLAN: This is a 71 yo F with ESRD on HD, HTN, CHF, afib, referred from dialysis due to elevated BP Hypertensive emergency with MITCH (acute on chronic, last Cr 2.8, current Cr is post-dialysis and elevated) -BP better controlled on PO meds -labetalol 400 bid, cozaar 100d, procardia xl 60 bid, aldactone 100 d, cardura 1 daily -frequent BP monitoring -metanephrines p/d ESRD on HD with MITCH -creat 2.7 on last dc -almost anuric at baseline -s/p HD yesterday -2.5 kg. -renal on case right sided CHF -due to severe pulm HTN -last TTE 12/25/16 RVP 60 mmHG -currently euvolemic -cardio on case Severe pulm HTN -may benefit from ac -hold ASA until BP better controlled DM -BGM ACHS -NISS ACHS -A1c 6.8 on 12/23/16 FEN No IVF lytes stable renally, diabetic, low na scd's Dispo: xfer telemetry Problem List - Problems (1) Chronic renal failure Code(s): N18.9 - CHRONIC KIDNEY DISEASE, UNSPECIFIED Qualifiers: Chronic kidney disease stage: stage 5 Qualified Code(s): N18.5 - Chronic kidney disease, stage 5 (2) Diabetes type 2, controlled Code(s): E11.9 - TYPE 2 DIABETES MELLITUS WITHOUT COMPLICATIONS Qualifiers: Diabetes mellitus complication status: with kidney complications Chronic kidney disease stage: stage 5, not on chronic dialysis (3) Hypertensive urgency Code(s): I10 - ESSENTIAL (PRIMARY) HYPERTENSION (4) Murmur, cardiac Code(s): R01.1 - CARDIAC MURMUR, UNSPECIFIED (5) Paroxysmal atrial fibrillation Code(s): I48.0 - PAROXYSMAL ATRIAL FIBRILLATION (6) Anemia Code(s): D64.9 - ANEMIA, UNSPECIFIED Qualifiers: Anemia type: unspecified type Qualified Code(s): D64.9 - Anemia, unspecified (7) Asymptomatic hypertensive urgency Code(s): I16.0 - HYPERTENSIVE URGENCY (8) Renal insufficiency Code(s): N28.9 - DISORDER OF KIDNEY AND URETER, UNSPECIFIED (9) Anemia, chronic renal failure Code(s): N18.9 - CHRONIC KIDNEY DISEASE, UNSPECIFIED D63.1 - ANEMIA IN CHRONIC KIDNEY DISEASE (10) CKD (chronic kidney disease) Code(s): N18.9 - CHRONIC KIDNEY DISEASE, UNSPECIFIED (11) Diabetes Code(s): E11.9 - TYPE 2 DIABETES MELLITUS WITHOUT COMPLICATIONS (12) End stage renal disease Code(s): N18.6 - END STAGE RENAL DISEASE (13) Hypertension Code(s): I10 - ESSENTIAL (PRIMARY) HYPERTENSION Qualifiers: Hypertension type: essential hypertension Qualified Code(s): I10 - Essential (primary) hypertension (14) Hypertensive renal disease Code(s): I12.9 - HYPERTENSIVE CHRONIC KIDNEY DISEASE W STG 1-4/UNSP CHR KDNY (15) Congestive heart failure Code(s): I50.9 - HEART FAILURE, UNSPECIFIED Visit type - Emergency Visit Emergency Visit: Yes ED Registration Date: 03/01/17 Care time: The patient presented to the Emergency Department on the above date and was hospitalized for further evaluation of their emergent condition. - New Patient This patient is new to me today: No - Critical Care Critical Care patient: Yes Total Critical Care Time (in minutes): 45 Critical Care Statement: The care of this patient involved high complexity decision making to prevent further life threatening deterioration of the patient 's condition and/or to evalute & treat vital organ system(s) failure or risk of failure. - Discharge Referral Referred to [facility] Med [facility].: No
[2017-03-02] MEDS ORDERED: LABETALOL HCL 5 MG/1 ML (100MG/20 ML VIAL) IVPUSH PRN ×2 (11:35→12:31)
[2017-03-02] MEDS ORDERED: CALCIUM ACETATE 667 MG CAPSULE (FP) PO SCH (12:00)
--- NOTE | 2017-03-02 12:28 | PN ---
Teaching Attending Note Name of Resident: Vanessa Orozco ATTENDING PHYSICIAN STATEMENT I saw and evaluated the patient. I reviewed the resident's note and discussed the case with the resident. I agree with the resident's findings and plan as documented. SUBJECTIVE: Patient seen and examined in the ICU. Awake and alert. Denies ZENDEJAS, chest pain, blurry vision, dizziness, etc. Remains off Labetalol drip. Noted transient relative hypotension yesterday. Right eye feels better today. Intake & Output 02/27/17 02/28/17 03/01/17 03/02/17 23:59 23:59 23:59 23:59 Intake Total 1623 940 Output Total 100 Balance 1523 940 Weight 134 lb 130 lb 8.218 oz 130 lb 6 oz Last Vital Signs Temp Pulse Resp BP Pulse Ox 98.5 F 64 18 175/64 94 L 03/02/17 09:00 03/02/17 11:00 03/02/17 11:00 03/02/17 11:00 03/02/17 11:38 Active Medications Acetaminophen (Tylenol -) 650 mg PO Q4H PRN PRN Reason: FEVER OR PAIN Artificial Tears (Artificial Tears) 1 drop OU BID [facility] Atorvastatin Calcium (Lipitor -) 10 mg PO HS [facility] Calcium Acetate (Phoslo -) 667 mg PO TIDCM [facility] Last Admin: 03/02/17 12:05 Dose: Not Given Chlorhexidine Gluconate (Hibiclens For Decolonization -) 1 applic TP HS [facility] Doxazosin Mesylate (Cardura -) 1 mg PO DAILY [facility] Insulin Aspart (Novolog Vial Sliding Scale -) 1 vial SQ ACHS [facility] PRN Reason: Protocol Labetalol HCl (Normodyne Injection -) 20 mg IVPUSH Q4H-IV PRN PRN Reason: HYPERTENSION Labetalol HCl (Normodyne -) 400 mg PO BID [facility] Losartan Potassium (Cozaar -) 100 mg PO DAILY [facility] Mupirocin (Bactroban Ointment (For Decolonization) -) 1 applic NS BID [facility] Stop: 03/06/17 09:59 Nifedipine (Procardia Xl -) 60 mg PO BID [facility] Spironolactone (Aldactone -) 100 mg PO DAILY [facility] Gen: NAD, awake and alert HEENT: NC/AT Neck: (-) JVD CVS: RRR Lungs: CTA Abd: soft NT/ND Ext: No edema, no clubbing or cyanosis, MURIEL AVF Laboratory Results - last 24 hr 03/01/17 03/01/17 03/01/17 13:45 15:00 17:35 WBC RBC Hgb Hct MCV MCHC RDW Plt Count MPV Sodium Potassium Chloride Carbon Dioxide Anion Gap BUN Creatinine POC Glucometer 235.22828 194.75061 Random Glucose Calcium Phosphorus Magnesium Creatine Kinase 68 Troponin I 0.05 03/01/17 03/02/17 03/02/17 21:23 05:15 05:15 WBC 6.2 RBC 3.73 Hgb 10.0 L Hct 30.2 L MCV 81.0 MCHC 33.0 RDW 18.3 H Plt Count 159 MPV 8.8 Sodium 139 Potassium 3.8 D Chloride 97 L Carbon Dioxide 30 Anion Gap 12 BUN 17 D Creatinine 4.3 H D POC Glucometer 171.86054 Random Glucose 143 H Calcium 8.8 Phosphorus 3.3 D Magnesium 1.9 D Creatine Kinase Troponin I 03/02/17 10:32 WBC RBC Hgb Hct MCV MCHC RDW Plt Count MPV Sodium Potassium Chloride Carbon Dioxide Anion Gap BUN Creatinine POC Glucometer [phone] Random Glucose Calcium Phosphorus Magnesium Creatine Kinase Troponin I A/P Suspected Hypertensive Emergency versus Urgency (+) Troponin ESRD on HD (MWF) History of poorly/difficult to control hypertension Renal Osteodystrophy Suspected Right eye local trauma Titrate BP meds HD per Renal Decolonization Saline drops to the right eye Floor Dr Haynes Critical care time spent in reviewing chart, evaluating patient and formulating plan 36 min
--- NOTE | 2017-03-02 12:52 | PN ---
Progress Note (short form) - Note Progress Note: Renal Follow up for ESRD and uncontrolled hypertension Pt seen and examined in the ICU awake and alert no acute complaints denies any ZENDEJAS, chest pain, sob, abd pian s/p dialysis yesterday with 2.5kg UF Vital Signs Temperature 98.5 F 03/02/17 09:00 Pulse Rate 64 03/02/17 11:00 Respiratory Rate 18 03/02/17 11:00 Blood Pressure 175/64 03/02/17 11:00 O2 Sat by Pulse Oximetry (%) 94 L 03/02/17 11:38 Intake & Output 02/27/17 02/28/17 03/01/17 03/02/17 23:59 23:59 23:59 23:59 Intake Total 1623 940 Output Total 100 Balance 1523 940 Weight 134 lb 130 lb 8.218 oz 130 lb 6 oz Gen: NAD, awake and alert CVS: RRR, No M/R Lungs: CTA, no rales or wheeze Abd: soft NT/ND Ext: No edema, no clubbing or cyanosis Access: + AVF CBC, BMP 03/02/17 05:15 03/02/17 05:15 Laboratory Tests 03/02/17 05:15 Calcium 8.8 Phosphorus 3.3 D Magnesium 1.9 D Current Medications Acetaminophen (Tylenol -) 650 mg PO Q4H PRN PRN Reason: FEVER OR PAIN Artificial Tears (Artificial Tears) 1 drop OU BID [facility] Atorvastatin Calcium (Lipitor -) 10 mg PO HS [facility] Calcium Acetate (Phoslo -) 667 mg PO TIDCM [facility] Chlorhexidine Gluconate (Hibiclens For Decolonization -) 1 applic TP HS [facility] Doxazosin Mesylate (Cardura -) 1 mg PO DAILY [facility] Insulin Aspart (Novolog Vial Sliding Scale -) 1 vial SQ ACHS [facility] PRN Reason: Protocol Labetalol HCl (Normodyne Injection -) 20 mg IVPUSH Q4H-IV PRN PRN Reason: HYPERTENSION Labetalol HCl (Normodyne -) 400 mg PO BID [facility] Losartan Potassium (Cozaar -) 100 mg PO DAILY [facility] Nifedipine (Procardia Xl -) 60 mg PO BID [facility] Spironolactone (Aldactone -) 100 mg PO DAILY [facility] A/P 71 year old woman with PMhx of ESRD on HD (MWF), Difficult to control hypertension, Renal Osteodystrophy who was sent to the ED from dialysis for uncontrolled hypertension and found to have hypertensive urgency. #Hypertensive Urgency pt experienced relative hypotension yesterday Today BP is improved continue Cardura, Labetalol, Losartan, Nifedpine, Adlactone Low salt diet Nutrition education regarding importance of low salt diet #ESRD on HD s/p HD yesterday no acute indication for dialysis today next treatment tomorrow and will resume dialysis on MWF schedule starting Sunday Alf Mcmahan DO
--- NOTE | 2017-03-02 13:07 | PN ---
Teaching Attending Note Name of Resident: Sinai Segura ATTENDING PHYSICIAN STATEMENT I saw and evaluated the patient. I reviewed the resident's note and discussed the case with the resident. I agree with the resident's findings and plan as documented. Patient is in ICU, BP is better controlled today. No acute distress. Vital Signs Temperature 98.5 F 03/02/17 09:00 Pulse Rate 64 03/02/17 11:00 Respiratory Rate 18 03/02/17 11:00 Blood Pressure 175/64 03/02/17 11:00 O2 Sat by Pulse Oximetry (%) 94 L 03/02/17 11:38 CBCD WBC 6.2 K/mm3 (4.0-10.0) 03/02/17 05:15 RBC 3.73 M/mm3 (3.60-5.2) 03/02/17 05:15 Hgb 10.0 GM/dL (10.7-15.3) L 03/02/17 05:15 Hct 30.2 % (32.4-45.2) L 03/02/17 05:15 MCV 81.0 fl (80-96) 03/02/17 05:15 MCHC 33.0 g/dl (32.0-36.0) 03/02/17 05:15 RDW 18.3 % (11.6-15.6) H 03/02/17 05:15 Plt Count 159 K/MM3 (134-434) 03/02/17 05:15 MPV 8.8 fl (7.5-11.1) 03/02/17 05:15 CMP Sodium 139 mmol/L (136-145) 03/02/17 05:15 Potassium 3.8 mmol/L (3.5-5.1) D 03/02/17 05:15 Chloride 97 mmol/L (98-107) L 03/02/17 05:15 Carbon Dioxide 30 mmol/L (21-32) 03/02/17 05:15 Anion Gap 12 (8-16) 03/02/17 05:15 BUN 17 mg/dL (7-18) D 03/02/17 05:15 Creatinine 4.3 mg/dL (0.55-1.02) H D 03/02/17 05:15 Creat Clearance w eGFR 7.19 (>60) 03/01/17 00:21 Random Glucose 143 mg/dL (74-106) H 03/02/17 05:15 Calcium 8.8 mg/dL (8.5-10.1) 03/02/17 05:15 Total Bilirubin 0.5 mg/dL (0.2-1.0) 03/01/17 00:21 AST 14 U/L (15-37) L 03/01/17 00:21 ALT 19 U/L (12-78) 03/01/17 00:21 Alkaline Phosphatase 111 U/L (45-117) 03/01/17 00:21 Total Protein 7.1 g/dl (6.4-8.2) 03/01/17 00:21 Albumin 3.9 g/dl (3.4-5.0) 03/01/17 00:21 CARDIAC ENZYMES Creatine Kinase 68 IU/L (26-192) 03/01/17 15:00 Troponin I 0.05 ng/ml (0.00-0.05) 03/01/17 15:00 Current Medications Generic Name Dose Route Start Last Admin Trade Name Freq PRN Reason Stop Dose Admin Acetaminophen 650 mg 03/02/17 12:31 Tylenol - PO Q4H PRN FEVER OR PAIN Artificial Tears 1 drop 03/02/17 22:00 Artificial Tears OU BID [facility] Atorvastatin Calcium 10 mg 03/02/17 22:00 Lipitor - PO HS [facility] Calcium Acetate 667 mg 03/02/17 17:30 Phoslo - PO TIDCM [facility] Chlorhexidine Gluconate 1 applic 03/02/17 22:00 Hibiclens For Decolonization - TP HS [facility] Doxazosin Mesylate 1 mg 03/03/17 10:00 Cardura - PO DAILY [facility] Insulin Aspart 1 vial 03/02/17 16:30 Novolog Vial Sliding Scale - SQ ACHS [facility] Protocol Labetalol HCl 20 mg 03/02/17 12:31 Normodyne Injection - IVPUSH Q4H-IV PRN HYPERTENSION Labetalol HCl 400 mg 03/02/17 22:00 Normodyne - PO BID [facility] Losartan Potassium 100 mg 03/03/17 10:00 Cozaar - PO DAILY [facility] Nifedipine 60 mg 03/02/17 22:00 Procardia Xl - PO BID [facility] Spironolactone 100 mg 03/03/17 10:00 Aldactone - PO DAILY [facility] Home Medications Medication Instructions Recorded Calcium Acetate Phoslo - 667 mg PO TID 01/08/17 Losartan Potassium 100 mg PO DAILY 01/08/17 Nifedipine ER Procardia XL - 60 mg PO BID 01/08/17 Pravastatin Sodium 20 mg PO DAILY 01/08/17 Spironolactone 50 mg PO DAILY 01/08/17 Labetalol HCl [Normodyne -] 400 mg PO BID #0 tablet 01/11/17 Spironolactone 50 mg PO BID #60 tablet 02/10/17 Torsemide [Demadex -] 40 mg PO DAILY #60 tablet 02/10/17 HEENT: right eye subconjunctival hemorrhage CVS: S1S2 positive , JAEL 12/11 ASSESSMENT AND PLAN: This is a 71 yo F with ESRD on HD, HTN, CHF, afib, referred from dialysis due to elevated BP # Hypertensive emergency BP is improving off labetalol ggt now and off nitrodrip , On Labetolol IV as needed for HTN above 150, continue Cozaar, procardia Xl and on aldactone and Cardura ; and on consult will transfer the patient out of the ICU to Telemetry floor #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
--- NOTE | 2017-03-02 13:09 | PN ---
Physical Exam: SUBJECTIVE: Patient seen and examined at bed side in ICU. Awake and alert. s/p HD 3 1/2 hours with out taking fluid off. patient BP currently 161/64 after morning meds. Auscultated mild crackles bilateral at bases. patient currently denies cp, sob, ZENDEJAS, N/V, vision change. Discussed case with Dr. Mcmahan and we will monitor in ICU, and HD today with out taking fluid off. OBJECTIVE: Vital Signs Period Temp Pulse Resp BP Sys/Parker Pulse Ox Last 24 Hr 97.4 F-98.5 F 60-69 16-24 112-212/50-83 94-94 GENERAL: The patient is awake, alert, and fully oriented, in NAD, sitting comfortably. HEAD: Normal with no signs of trauma. EYES: PERRL, extraocular movements intact, sclera anicteric, conjunctiva clear. No ptosis. ENT: R eye lateral scelera redness, oropharynx clear without exudates, moist mucous membranes. NECK: Trachea midline, full range of motion, supple. LUNGS: Breath sounds equal, clear to auscultation bilaterally, no wheezes, mild fine crackles bilateral bases, no accessory muscle use. HEART: Regular rate and rhythm, S1, S2, grade 2 systolic murmur, rub or gallop. ABDOMEN: Soft Obese, nontender, nondistended, normoactive bowel sounds, no guarding, no rebound, no hepatosplenomegaly, no masses. EXTREMITIES: 2+ pulses, warm, well-perfused, trace edema. NEUROLOGICAL: Cranial nerves II through XII grossly intact. Normal speech, gait not observed. PSYCH: Normal mood, normal affect. SKIN: Warm, dry, normal turgor, no rashes or lesions noted Laboratory Results - last 24 hr 03/01/17 03/01/17 03/01/17 13:45 15:00 17:35 WBC RBC Hgb Hct MCV MCHC RDW Plt Count MPV Sodium Potassium Chloride Carbon Dioxide Anion Gap BUN Creatinine POC Glucometer 235.35802 194.26252 Random Glucose Calcium Phosphorus Magnesium Creatine Kinase 68 Troponin I 0.05 03/01/17 03/02/17 03/02/17 21:23 05:15 05:15 WBC 6.2 RBC 3.73 Hgb 10.0 L Hct 30.2 L MCV 81.0 MCHC 33.0 RDW 18.3 H Plt Count 159 MPV 8.8 Sodium 139 Potassium 3.8 D Chloride 97 L Carbon Dioxide 30 Anion Gap 12 BUN 17 D Creatinine 4.3 H D POC Glucometer 171.97488 Random Glucose 143 H Calcium 8.8 Phosphorus 3.3 D Magnesium 1.9 D Creatine Kinase Troponin I 03/02/17 10:32 WBC RBC Hgb Hct MCV MCHC RDW Plt Count MPV Sodium Potassium Chloride Carbon Dioxide Anion Gap BUN Creatinine POC Glucometer 174.05315 Random Glucose Calcium Phosphorus Magnesium Creatine Kinase Troponin I Active Medications Generic Name Dose Route Start Last Admin Trade Name Freq PRN Reason Stop Dose Admin Acetaminophen 650 mg 03/02/17 12:31 Tylenol - PO Q4H PRN FEVER OR PAIN Artificial Tears 1 drop 03/02/17 22:00 Artificial Tears OU BID [facility] Atorvastatin Calcium 10 mg 03/02/17 22:00 Lipitor - PO HS [facility] Calcium Acetate 667 mg 03/02/17 17:30 Phoslo - PO TIDCM [facility] Chlorhexidine Gluconate 1 applic 03/02/17 22:00 Hibiclens For Decolonization - TP HS [facility] Doxazosin Mesylate 1 mg 03/03/17 10:00 Cardura - PO DAILY [facility] Insulin Aspart 1 vial 03/02/17 16:30 Novolog Vial Sliding Scale - SQ ACHS [facility] Protocol Labetalol HCl 20 mg 03/02/17 12:31 Normodyne Injection - IVPUSH Q4H-IV PRN HYPERTENSION Labetalol HCl 400 mg 03/02/17 22:00 Normodyne - PO BID [facility] Losartan Potassium 100 mg 03/03/17 10:00 Cozaar - PO DAILY [facility] Nifedipine 60 mg 03/02/17 22:00 Procardia Xl - PO BID [facility] Spironolactone 100 mg 03/03/17 10:00 Aldactone - PO DAILY [facility] ASSESSMENT/PLAN: 71 yo F with ESRD on HD, HTN difficult to control, Renal Osteodystrophy , CHF, afib, sent from dialysis due to elevated BP and troponins. Hypertensive emergency vs Urgency: Isolated HTN (SBP 150's to 160's at home). -continue home cozaar 100d, procardia xl 60 bid, aldactone 100 d at noon -continue cardura 1 daily at 3 pm then d/c labetalol ggt, then started labetalol 400BID. Blood pressure goal 160's for today. Suspected Right eye local trauma- patient reports feeling better today. saline eye drops troponin slightly decreased elevated troponin secondary. ESRD on HD MWF. HD yesterday 3 1/2 hours. -anuric at baseline -Nephrology plan for dialysis once BP controlled. -monitor I/O Hyperkalemia; improved post HD BMP Right sided CHF -due to severe pulm HTN -last TTE 12/25/16 RVP 60 mmHG -currently euvolemic -cardio on case Severe pulm HTN -may benefit from ac -hold ASA until BP better controlled and Ok with cardiology Anemia: 2/2 ESRD and anemia of chronic disease No Epogen at this time given uncontrolled hypertension repeat H/H DM : A1c 6.8 -ISS FEN fluid restriction replete electrolyte as needed. renal, diabetic, low na. scd's Dispo: will continue to follow in ICU Visit type - Emergency Visit Emergency Visit: Yes ED Registration Date: 03/01/17 Care time: The patient presented to the Emergency Department on the above date and was hospitalized for further evaluation of their emergent condition. - New Patient This patient is new to me today: No - Critical Care Critical Care patient: Yes Total Critical Care Time (in minutes): 47 Critical Care Statement: The care of this patient involved high complexity decision making to prevent further life threatening deterioration of the patient 's condition and/or to evalute & treat vital organ system(s) failure or risk of failure.
[2017-03-02] MEDS: ASPIRIN COATED 81 MG TABLET.EC PO SCH (13:37)
[2017-03-02] MEDS ORDERED: INSULIN SLIDING SCALE (NOVOLOG) 1 VIAL SQ SCH (16:30)
[2017-03-02] MEDS ORDERED: ATORVASTATIN CA 10 MG TABLET (FP) PO SCH ×2 (22:00)
[2017-03-02] MEDS ORDERED: CHLORHEXIDINE GLUCONATE 4% CLEANSER FOR DECOLONIZATION TP SCH ×2 (22:00)
[2017-03-02] MEDS ORDERED: ARTIFICIAL TEARS (POLYVINYL ALCOHOL 1.4%) OPTH DROPS OU SCH (22:00)
[2017-03-02] MEDS ORDERED: MUPIROCIN 2% TOPICAL OINTMENT FOR DECOLONIZATION NS SCH (22:00)
[2017-03-02] MEDS ORDERED: LABETALOL HCL 200 MG TABLET (FP) PO SCH (22:00)
[2017-03-02] MEDS ORDERED: NIFEdipine E.R 60 MG TABLET (UD) PO SCH (22:00)
[2017-03-03] MEDS: INSULIN SLIDING SCALE (NOVOLOG) 1 VIAL SQ SCH ×2 (06:20→12:14)
--- NOTE | 2017-03-03 08:38 | PN ---
Physical Exam: SUBJECTIVE: Patient seen and examined Patient is comfortable having dialysis OBJECTIVE: Vital Signs Temperature 98.3 F 03/03/17 06:40 Pulse Rate 61 03/03/17 08:15 Respiratory Rate 18 03/03/17 08:15 Blood Pressure 155/74 03/03/17 08:15 O2 Sat by Pulse Oximetry (%) 97 03/02/17 21:00 GENERAL: The patient is awake, alert, and fully oriented, in no acute distress. HEAD: Normal with no signs of trauma. EYES: PERRL, extraocular movements intact, sclera anicteric, conjunctiva clear. No ptosis. ENT: Ears normal, nares patent, oropharynx clear without exudates, moist mucous membranes. NECK: Trachea midline, full range of motion, supple. LUNGS: Breath sounds equal, clear to auscultation bilaterally, no wheezes, no crackles, no accessory muscle use. HEART: Regular rate and rhythm, S1, S2 without murmur, rub or gallop. ABDOMEN: Soft, nontender, nondistended, normoactive bowel sounds, no guarding, no rebound, no hepatosplenomegaly, no masses. EXTREMITIES: 2+ pulses, warm, well-perfused, no edema. NEUROLOGICAL: Cranial nerves II through XII grossly intact. Normal speech, gait not observed. PSYCH: Normal mood, normal affect. SKIN: Warm, dry, normal turgor, no rashes or lesions noted CBCD WBC 6.2 K/mm3 (4.0-10.0) 03/02/17 05:15 RBC 3.73 M/mm3 (3.60-5.2) 03/02/17 05:15 Hgb 10.0 GM/dL (10.7-15.3) L 03/02/17 05:15 Hct 30.2 % (32.4-45.2) L 03/02/17 05:15 MCV 81.0 fl (80-96) 03/02/17 05:15 MCHC 33.0 g/dl (32.0-36.0) 03/02/17 05:15 RDW 18.3 % (11.6-15.6) H 03/02/17 05:15 Plt Count 159 K/MM3 (134-434) 03/02/17 05:15 MPV 8.8 fl (7.5-11.1) 03/02/17 05:15 CMP Sodium 139 mmol/L (136-145) 03/02/17 05:15 Potassium 3.8 mmol/L (3.5-5.1) D 03/02/17 05:15 Chloride 97 mmol/L (98-107) L 03/02/17 05:15 Carbon Dioxide 30 mmol/L (21-32) 03/02/17 05:15 Anion Gap 12 (8-16) 03/02/17 05:15 BUN 17 mg/dL (7-18) D 03/02/17 05:15 Creatinine 4.3 mg/dL (0.55-1.02) H D 03/02/17 05:15 Creat Clearance w eGFR 7.19 (>60) 03/01/17 00:21 Random Glucose 143 mg/dL (74-106) H 03/02/17 05:15 Calcium 8.8 mg/dL (8.5-10.1) 03/02/17 05:15 Total Bilirubin 0.5 mg/dL (0.2-1.0) 03/01/17 00:21 AST 14 U/L (15-37) L 03/01/17 00:21 ALT 19 U/L (12-78) 03/01/17 00:21 Alkaline Phosphatase 111 U/L (45-117) 03/01/17 00:21 Total Protein 7.1 g/dl (6.4-8.2) 03/01/17 00:21 Albumin 3.9 g/dl (3.4-5.0) 03/01/17 00:21 CARDIAC ENZYMES Creatine Kinase 68 IU/L (26-192) 03/01/17 15:00 Troponin I 0.05 ng/ml (0.00-0.05) 03/01/17 15:00 Laboratory Results - last 24 hr 03/01/17 03/02/17 03/02/17 21:23 10:32 17:25 POC Glucometer 171.32827 174.08668 153 03/02/17 03/03/17 20:54 06:19 POC Glucometer 148 148 Active Medications Generic Name Dose Route Start Last Admin Trade Name Freq PRN Reason Stop Dose Admin Acetaminophen 650 mg 03/02/17 12:31 03/02/17 23:09 Tylenol - PO 650 mg Q4H PRN Administration FEVER OR PAIN Artificial Tears 1 drop 03/02/17 22:00 03/02/17 22:04 Artificial Tears OU 1 drop BID [facility] Administration Aspirin 81 mg 03/02/17 13:30 03/02/17 13:37 Ecotrin - PO 81 mg DAILY [facility] Administration Atorvastatin Calcium 10 mg 03/02/17 22:00 03/02/17 22:02 Lipitor - PO 10 mg HS [facility] Administration Calcium Acetate 667 mg 03/02/17 17:30 03/02/17 17:28 Phoslo - PO 667 mg TIDCM [facility] Administration Chlorhexidine Gluconate 1 applic 03/02/17 22:00 03/02/17 22:05 Hibiclens For Decolonization - TP Not Given HS [facility] Doxazosin Mesylate 1 mg 03/03/17 10:00 Cardura - PO DAILY [facility] Insulin Aspart 1 vial 03/02/17 16:30 03/03/17 06:20 Novolog Vial Sliding Scale - SQ Not Given ACHS [facility] Protocol Labetalol HCl 20 mg 03/02/17 12:31 Normodyne Injection - IVPUSH Q4H-IV PRN HYPERTENSION Labetalol HCl 400 mg 03/02/17 22:00 03/02/17 22:02 Normodyne - PO 400 mg BID [facility] Administration Losartan Potassium 100 mg 03/03/17 10:00 Cozaar - PO DAILY [facility] Nifedipine 60 mg 03/02/17 22:00 03/02/17 22:03 Procardia Xl - PO 60 mg BID [facility] Administration Spironolactone 100 mg 03/03/17 10:00 Aldactone - PO DAILY [facility] Home Medications Medication Instructions Recorded Calcium Acetate [Phoslo -] 667 mg PO TID 01/08/17 Losartan Potassium 100 mg PO DAILY 01/08/17 Nifedipine ER [Procardia XL -] 60 mg PO BID 01/08/17 Pravastatin Sodium 20 mg PO DAILY 01/08/17 Spironolactone 50 mg PO DAILY 01/08/17 Labetalol HCl [Normodyne -] 400 mg PO BID #0 tablet 01/11/17 Spironolactone 50 mg PO BID #60 tablet 02/10/17 Torsemide [Demadex -] 40 mg PO DAILY #60 tablet 02/10/17 ASSESSMENT/PLAN: This is a 71 yo F with ESRD on HD, HTN, CHF, afib, referred from dialysis due to elevated BP # Hypertensive emergency BP is improving off labetalol ggt now and off nitrodrip , On Labetolol IV as needed for HTN above 150, continue Cozaar, procardia Xl and on aldactone and Cardura ; and on consult will transfer the patient out of the ICU to Telemetry floor #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
[2017-03-03 08:39] LABS: MCH 26.3 pg (25.7-33.7); MCHC 31.8 g/dl (32.0-36.0); MEAN CELL VOLUME 82.8 fl (80-96); MEAN PLT VOLUME 8.8 fl (7.5-11.1); PLATELET COUNT 141 K/MM3 (134-434); RDW 17.8 % (11.6-15.6); WHITE BLOOD COUNT 6.7 K/mm3 (4.0-10.0)
[2017-03-03] MEDS: CALCIUM ACETATE 667 MG CAPSULE (FP) PO SCH ×3 (08:51→17:37)
[2017-03-03 09:06] LABS: CALCIUM 9.2 mg/dL (8.5-10.1); COCKROFT - GAULT 7.9645; CREATININE 6.3 mg/dL (0.55-1.02); MAGNESIUM 2.4 mg/dL (1.8-2.4); PHOSPHOROUS 4.2 mg/dL (2.5-4.9)
--- NOTE | 2017-03-03 09:34 | PN ---
Progress Note, Physician - Current Medication List Current Medications: Active Medications Acetaminophen (Tylenol -) 650 mg PO Q4H PRN PRN Reason: FEVER OR PAIN Last Admin: 03/02/17 23:09 Dose: 650 mg Artificial Tears (Artificial Tears) 1 drop OU BID [facility] Last Admin: 03/02/17 22:04 Dose: 1 drop Aspirin (Ecotrin -) 81 mg PO DAILY [facility] Last Admin: 03/02/17 13:37 Dose: 81 mg Atorvastatin Calcium (Lipitor -) 10 mg PO HS [facility] Last Admin: 03/02/17 22:02 Dose: 10 mg Calcium Acetate (Phoslo -) 667 mg PO TIDCM [facility] Last Admin: 03/03/17 08:51 Dose: Not Given Chlorhexidine Gluconate (Hibiclens For Decolonization -) 1 applic TP [facility] Last Admin: 03/02/17 22:05 Dose: Not Given Doxazosin Mesylate (Cardura -) 1 mg PO DAILY [facility] Insulin Aspart (Novolog Vial Sliding Scale -) 1 vial SQ ACHS [facility] PRN Reason: Protocol Last Admin: 03/03/17 06:20 Dose: Not Given Labetalol HCl (Normodyne Injection -) 20 mg IVPUSH Q4H-IV PRN PRN Reason: HYPERTENSION Labetalol HCl (Normodyne -) 400 mg PO BID [facility] Last Admin: 03/02/17 22:02 Dose: 400 mg Losartan Potassium (Cozaar -) 100 mg PO DAILY [facility] Nifedipine (Procardia Xl -) 60 mg PO BID [facility] Last Admin: 03/02/17 22:03 Dose: 60 mg Spironolactone (Aldactone -) 100 mg PO DAILY [facility] - Objective Vital Signs: Vital Signs Temperature 98.3 F 03/03/17 06:40 Pulse Rate 66 03/03/17 09:15 Respiratory Rate 18 03/03/17 09:15 Blood Pressure 186/68 03/03/17 09:15 O2 Sat by Pulse Oximetry (%) 97 03/02/17 21:00 Eyes: Yes: WNL, Conjunctiva Clear, EOM Intact HENT: Yes: WNL, Atraumatic, Normocephalic Neck: Yes: WNL, Supple, Trachea Midline Cardiovascular: Yes: WNL, Regular Rate and Rhythm Respiratory: Yes: WNL, Regular, CTA Bilaterally Gastrointestinal: Yes: WNL, Normal Bowel Sounds Genitourinary: Yes: WNL Musculoskeletal: Yes: WNL Extremities: Yes: WNL Edema: No Integumentary: Yes: WNL Neurological: Yes: WNL, Alert, Oriented ...Motor Strength: WNL Psychiatric: Yes: WNL Labs: CBC, BMP 03/03/17 06:45 03/03/17 06:45 INR, PTT INR 1.12 (0.82-1.09) 03/01/17 00:21 Assessment/Plan Problems (1) Hypertensive urgency Code(s): I10 - ESSENTIAL (PRIMARY) HYPERTENSION (2) Chronic renal failure Code(s): N18.9 - CHRONIC KIDNEY DISEASE, UNSPECIFIED Qualifiers: Chronic kidney disease stage: stage 5 Qualified Code(s): N18.5 - Chronic kidney disease, stage 5 (3) Diabetes type 2, controlled Code(s): E11.9 - TYPE 2 DIABETES MELLITUS WITHOUT COMPLICATIONS Qualifiers: Diabetes mellitus complication status: with kidney complications Chronic kidney disease stage: stage 5, not on chronic dialysis (4) Abnormal EKG Code(s): R94.31 - ABNORMAL ELECTROCARDIOGRAM [ECG] [EKG] (5) Murmur, cardiac Code(s): R01.1 - CARDIAC MURMUR, UNSPECIFIED (6) Paroxysmal atrial fibrillation Code(s): I48.0 - PAROXYSMAL ATRIAL FIBRILLATION Assessment/Plan Problem List - Problems (1) Hypertensive urgency Assessment/Plan: -Overall trend improving -Transitioning to PO meds -Telemetry -Renal following. Code(s): I10 - ESSENTIAL (PRIMARY) HYPERTENSION (2) Chronic renal failure Assessment/Plan: -regular HD Code(s): N18.9 - CHRONIC KIDNEY DISEASE, UNSPECIFIED Qualifiers: Chronic kidney disease stage: stage 5 Qualified Code(s): N18.5 - Chronic kidney disease, stage 5 (3) Diabetes type 2, controlled Assessment/Plan: -management as per PMD Code(s): E11.9 - TYPE 2 DIABETES MELLITUS WITHOUT COMPLICATIONS Qualifiers: Diabetes mellitus complication status: with kidney complications Chronic kidney disease stage: stage 5, not on chronic dialysis (4) Abnormal EKG Assessment/Plan: -with LAE, consistent with chronic HTN -Echo with normal LV function Code(s): R94.31 - ABNORMAL ELECTROCARDIOGRAM [ECG] [EKG] (5) Murmur, cardiac Assessment/Plan: -Echo confirms TR with PHTN Code(s): R01.1 - CARDIAC MURMUR, UNSPECIFIED (6) Paroxysmal atrial fibrillation Assessment/Plan: -There is documented h/o PAF in EMR although patient denies -Prior CVA -try to obtain old records to clarify -home med list does not include an anticoagulant; would start ASA 81mg daily for now if no contraindications when BP is more controlled. Code(s): I48.0 - PAROXYSMAL ATRIAL FIBRILLATION
[2017-03-03] MEDS ORDERED: SPIRONOLACTONE 25 MG TABLET (FP) PO SCH ×2 (10:00)
[2017-03-03] MEDS ORDERED: LOSARTAN POTASSIUM 50 MG TABLET (FP) PO SCH ×2 (10:00)
[2017-03-03] MEDS ORDERED: DOXAZOSIN MESYLATE 1 MG TABLET PO SCH ×4 (10:00→14:07)
[2017-03-03 10:27] VITALS: PULSE 68
--- NOTE | 2017-03-03 10:43 | PN ---
Progress Note (short form) - Note Progress Note: Overall feels better. Denies ZENDEJAS, chest pain, blurry vision, dizziness, etc. Overall trend of BOP improved. Intake & Output 02/28/17 03/01/17 03/02/17 03/03/17 23:59 23:59 23:59 23:59 Intake Total 1623 940 Output Total 100 0 Balance 1523 940 0 Weight 134 lb 130 lb 8.218 oz 130 lb 6 oz 135 lb 14.4 oz Last Vital Signs Temp Pulse Resp BP Pulse Ox 98.3 F 68 18 171/61 97 03/03/17 06:40 03/03/17 10:20 03/03/17 10:20 03/03/17 10:20 03/02/17 21:00 Active Medications Acetaminophen (Tylenol -) 650 mg PO Q4H PRN PRN Reason: FEVER OR PAIN Last Admin: 03/02/17 23:09 Dose: 650 mg Artificial Tears (Artificial Tears) 1 drop OU BID [facility] Last Admin: 03/02/17 22:04 Dose: 1 drop Aspirin (Ecotrin -) 81 mg PO DAILY [facility] Last Admin: 03/02/17 13:37 Dose: 81 mg Atorvastatin Calcium (Lipitor -) 10 mg PO HS [facility] Last Admin: 03/02/17 22:02 Dose: 10 mg Calcium Acetate (Phoslo -) 667 mg PO TIDCM [facility] Last Admin: 03/03/17 08:51 Dose: Not Given Chlorhexidine Gluconate (Hibiclens For Decolonization -) 1 applic TP [facility] Last Admin: 03/02/17 22:05 Dose: Not Given Doxazosin Mesylate (Cardura -) 1 mg PO DAILY [facility] Insulin Aspart (Novolog Vial Sliding Scale -) 1 vial SQ ACHS [facility] PRN Reason: Protocol Last Admin: 03/03/17 06:20 Dose: Not Given Labetalol HCl (Normodyne Injection -) 20 mg IVPUSH Q4H-IV PRN PRN Reason: HYPERTENSION Labetalol HCl (Normodyne -) 400 mg PO BID [facility] Last Admin: 03/02/17 22:02 Dose: 400 mg Losartan Potassium (Cozaar -) 100 mg PO DAILY [facility] Nifedipine (Procardia Xl -) 60 mg PO BID [facility] Last Admin: 03/02/17 22:03 Dose: 60 mg Spironolactone (Aldactone -) 100 mg PO DAILY [facility] Gen: NAD, awake and alert HEENT: Improving right eye Neck: (-) JVD CVS: RRR Lungs: CTA Abd: soft NT/ND Ext: No edema, no clubbing or cyanosis, MURIEL AVF Laboratory Results - last 24 hr 03/02/17 03/02/17 03/02/17 10:32 17:25 20:54 WBC RBC Hgb Hct MCV MCHC RDW Plt Count MPV Sodium Potassium Chloride Carbon Dioxide Anion Gap BUN Creatinine POC Glucometer 174.24315 153 148 Random Glucose Calcium Phosphorus Magnesium 03/03/17 03/03/17 03/03/17 06:19 06:45 06:45 WBC 6.7 RBC 3.78 Hgb 10.0 L Hct 31.3 L MCV 82.8 MCHC 31.8 L RDW 17.8 H Plt Count 141 MPV 8.8 Sodium 137 Potassium 4.3 Chloride 95 L Carbon Dioxide 26 Anion Gap 16 BUN 34 H D Creatinine 6.3 H D POC Glucometer 148 Random Glucose 125 H Calcium 9.2 Phosphorus 4.2 D Magnesium 2.4 D A/P Suspected Hypertensive Emergency versus Urgency (+) Troponin ESRD on HD (MWF) History of poorly/difficult to control hypertension Renal Osteodystrophy Suspected Right eye local trauma Titrate BP meds HD per Renal Saline drops to the right eye Dr Haynes
[2017-03-03] MEDS ORDERED: PT OWN MED DRAWER 7, Y5N ONE (10:49)
[2017-03-03] MEDS: NIFEdipine E.R 60 MG TABLET (UD) PO SCH (10:52)
[2017-03-03] MEDS: ASPIRIN COATED 81 MG TABLET.EC PO SCH (10:53)
[2017-03-03] MEDS: LABETALOL HCL 200 MG TABLET (FP) PO SCH (10:53)
[2017-03-03] MEDS: ARTIFICIAL TEARS (POLYVINYL ALCOHOL 1.4%) OPTH DROPS OU SCH (10:55)
--- NOTE | 2017-03-03 11:04 | PN ---
Progress Note (short form) - Note Progress Note: Renal Follow up for ESRD and uncontrolled hypertension Pt seen and examined with dialysis and at the bedside BP ~170/90's during dialysis BP is now 198/90 after treatment total of 2.5L UF removed with HD PT to get all BP meds now (not given before dialysis) Vital Signs Temperature 98.3 F 03/03/17 06:40 Pulse Rate 68 03/03/17 10:20 Respiratory Rate 18 03/03/17 10:20 Blood Pressure 171/61 03/03/17 10:20 O2 Sat by Pulse Oximetry (%) 97 03/02/17 21:00 Intake & Output 02/28/17 03/01/17 03/02/17 03/03/17 23:59 23:59 23:59 23:59 Intake Total 1623 940 Output Total 100 0 Balance 1523 940 0 Weight 134 lb 130 lb 8.218 oz 130 lb 6 oz 135 lb 14.4 oz Gen: NAD, awake and alert CVS: RRR, No M/R Lungs: CTA, no rales or wheeze Abd: soft NT/ND Ext: No edema, no clubbing or cyanosis Access: + AVF CBC, BMP 03/03/17 06:45 03/03/17 06:45 Laboratory Tests 03/03/17 06:45 Calcium 9.2 Phosphorus 4.2 D Magnesium 2.4 D Current Medications Acetaminophen (Tylenol -) 650 mg PO Q4H PRN PRN Reason: FEVER OR PAIN Last Admin: 03/02/17 23:09 Dose: 650 mg Artificial Tears (Artificial Tears) 1 drop OU BID [facility] Last Admin: 03/03/17 10:55 Dose: 1 drop Aspirin (Ecotrin -) 81 mg PO DAILY [facility] Last Admin: 03/03/17 10:53 Dose: 81 mg Atorvastatin Calcium (Lipitor -) 10 mg PO HS [facility] Last Admin: 03/02/17 22:02 Dose: 10 mg Calcium Acetate (Phoslo -) 667 mg PO TIDCM [facility] Last Admin: 03/03/17 08:51 Dose: Not Given Chlorhexidine Gluconate (Hibiclens For Decolonization -) 1 applic TP [facility] Last Admin: 03/02/17 22:05 Dose: Not Given Doxazosin Mesylate (Cardura -) 1 mg PO DAILY [facility] Insulin Aspart (Novolog Vial Sliding Scale -) 1 vial SQ ACHS [facility] PRN Reason: Protocol Last Admin: 03/03/17 06:20 Dose: Not Given Labetalol HCl (Normodyne Injection -) 20 mg IVPUSH Q4H-IV PRN PRN Reason: HYPERTENSION Labetalol HCl (Normodyne -) 400 mg PO BID [facility] Last Admin: 03/03/17 10:53 Dose: 400 mg Losartan Potassium (Cozaar -) 100 mg PO DAILY [facility] Last Admin: 03/03/17 10:54 Dose: 100 mg Nifedipine (Procardia Xl -) 60 mg PO BID [facility] Last Admin: 03/03/17 10:52 Dose: 60 mg Spironolactone (Aldactone -) 100 mg PO DAILY [facility] Last Admin: 03/03/17 10:52 Dose: 100 mg A/P 71 year old woman with PMhx of ESRD on HD (MWF), Difficult to control hypertension, Renal Osteodystrophy who was sent to the ED from dialysis for uncontrolled hypertension and found to have hypertensive urgency. #Hypertensive Urgency BP has been improved for the most part elevated in the morning because she did not get her AM meds to get BP meds now, will increase cardura to 2mg Daily if BP better then 160/100 by this afternoon pt can be discharged and follow up as outpatient further titration of BP meds can be done as outpatient #ESRD on HD tolerated HD well today UF 2.5L Access with good function Alf Mcmahan DO
[2017-03-03 13:59] VITALS: BP 147/56; TEMP 98.9
--- NOTE | 2017-03-03 14:02 | DS ---
Physical Exam: SUBJECTIVE: Patient seen and examined Comfortable with no acute distress, s/p dialysis , blood pressure is better controlled now. OBJECTIVE: Vital Signs Temperature 98.9 F 03/03/17 13:58 Pulse Rate 68 03/03/17 13:58 Respiratory Rate 18 03/03/17 13:58 Blood Pressure 147/56 03/03/17 13:58 O2 Sat by Pulse Oximetry (%) 97 03/02/17 21:00 PHYSICAL EXAM GENERAL: The patient is awake, alert, and fully oriented, in no acute distress. HEAD: Normal with no signs of trauma. EYES: PERRL, extraocular movements intact, sclera anicteric, conjunctiva clear. ENT: Ears normal, nares patent, oropharynx clear without exudates, moist mucous membranes. NECK: Trachea midline, full range of motion, supple. LUNGS: Breath sounds equal, clear to auscultation bilaterally, no wheezes, no crackles, no accessory muscle use. HEART: Regular rate and rhythm, S1, S2 without murmur, rub or gallop. ABDOMEN: Soft, nontender, nondistended, normoactive bowel sounds, no guarding, no rebound, no hepatosplenomegaly, no masses. EXTREMITIES: 2+ pulses, warm, well-perfused, no edema. NEUROLOGICAL: Cranial nerves II through XII grossly intact. Normal speech, gait not observed. PSYCH: Normal mood, normal affect. SKIN: Warm, dry, normal turgor, no rashes or lesions noted. LABS Laboratory Results - last 24 hr 03/02/17 03/02/17 03/03/17 17:25 20:54 06:19 WBC RBC Hgb Hct MCV MCHC RDW Plt Count MPV Sodium Potassium Chloride Carbon Dioxide Anion Gap BUN Creatinine POC Glucometer 153 148 148 Random Glucose Calcium Phosphorus Magnesium 03/03/17 03/03/17 03/03/17 06:45 06:45 11:40 WBC 6.7 RBC 3.78 Hgb 10.0 L Hct 31.3 L MCV 82.8 MCHC 31.8 L RDW 17.8 H Plt Count 141 MPV 8.8 Sodium 137 Potassium 4.3 Chloride 95 L Carbon Dioxide 26 Anion Gap 16 BUN 34 H D Creatinine 6.3 H D POC Glucometer 196 Random Glucose 125 H Calcium 9.2 Phosphorus 4.2 D Magnesium 2.4 D Current Medications Generic Name Dose Route Start Last Admin Trade Name Ignacio PRN Reason Stop Dose Admin Acetaminophen 650 mg 03/02/17 12:31 03/02/17 23:09 Tylenol - PO 650 mg Q4H PRN Administration FEVER OR PAIN Artificial Tears 1 drop 03/02/17 22:00 03/03/17 10:55 Artificial Tears OU 1 drop BID KARINA Administration Aspirin 81 mg 03/02/17 13:30 03/03/17 10:53 Ecotrin - PO 81 mg DAILY KARINA Administration Atorvastatin Calcium 10 mg 03/02/17 22:00 03/02/17 22:02 Lipitor - PO 10 mg HS KARINA Administration Calcium Acetate 667 mg 03/02/17 17:30 03/03/17 12:17 Phoslo - PO 667 mg TIDCM KARINA Administration Chlorhexidine Gluconate 1 applic 03/02/17 22:00 03/02/17 22:05 Hibiclens For Decolonization - TP Not Given HS KARINA Doxazosin Mesylate 1 mg 03/03/17 11:04 Cardura - PO DAILY [facility] Insulin Aspart 1 vial 03/02/17 16:30 03/03/17 12:14 Novolog Vial Sliding Scale - SQ Not Given ACHS [facility] Protocol Labetalol HCl 20 mg 03/02/17 12:31 Normodyne Injection - IVPUSH Q4H-IV PRN HYPERTENSION Labetalol HCl 400 mg 03/02/17 22:00 03/03/17 10:53 Normodyne - PO 400 mg BID KARINA Administration Losartan Potassium 100 mg 03/03/17 10:00 03/03/17 10:54 Cozaar - PO 100 mg DAILY KARINA Administration Nifedipine 60 mg 03/02/17 22:00 03/03/17 10:52 Procardia Xl - PO 60 mg BID KARINA Administration Spironolactone 100 mg 03/03/17 10:00 03/03/17 10:52 Aldactone - PO 100 mg DAILY KARINA Administration Home Medications Medication Instructions Recorded Calcium Acetate [Phoslo -] 667 mg PO TID 01/08/17 Losartan Potassium 100 mg PO DAILY 01/08/17 Nifedipine ER [Procardia XL -] 60 mg PO BID 01/08/17 Pravastatin Sodium 20 mg PO DAILY 01/08/17 Spironolactone 50 mg PO DAILY 01/08/17 Labetalol HCl [Normodyne -] 400 mg PO BID #0 tablet 01/11/17 Spironolactone 50 mg PO BID #60 tablet 02/10/17 Torsemide [Demadex -] 40 mg PO DAILY #60 tablet 02/10/17 HOSPITAL COURSE: Date of Admission:03/01/17 Date of Discharge: 03/03/17 This is a 71 yo F with ESRD on HD, HTN, CHF, afib, referred from dialysis due to elevated BP # Hypertensive emergency BP is better controlled now added Cardura 1mg , discussed with wants tihe patient to be on 1mg Cardura taking it at night time since Blood pressure mosstly elevated at night time. s/p labetalol ggt & nitrodrip . 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 continue dialysis as scheduled Minutes to complete discharge: 60 Discharge Summary Reason For Visit: HYPERTENSIVE URGENCY Current Active Problems Abnormal EKG (Acute) Chronic renal failure (Acute) Diabetes type 2, controlled (Acute) Hypertensive urgency (Acute) Murmur, cardiac (Acute) Paroxysmal atrial fibrillation (Acute) Condition: Stable - Instructions Referrals: Alf Mcmahan MD [Staff Physician] - 1 Week Kimberly Dumont MD [Staff Physician] - 1 Week (to work you up for Diabetus) Disposition: HOME - Home Medications Comprehensive Discharge Medication List: Ambulatory Orders Calcium Acetate [Phoslo -] 667 mg PO TID 01/08/17 Losartan Potassium 100 mg PO DAILY 01/08/17 Nifedipine ER [Procardia XL -] 60 mg PO BID 01/08/17 Pravastatin Sodium 20 mg PO DAILY 01/08/17 Spironolactone 50 mg PO DAILY 01/08/17 Labetalol HCl [Normodyne -] 400 mg PO BID #0 tablet 01/11/17 Spironolactone 50 mg PO BID #60 tablet 02/10/17 Torsemide [Demadex -] 40 mg PO DAILY #60 tablet 02/10/17 This patient is new to me today: No Emergency Visit: No Critical Care patient: No - Discharge Referral Referred to [facility] Med P.C.: No
--- NOTE | 2017-03-04 18:29 | DS ---
Physical Exam: SUBJECTIVE: Patient seen and examined Patient resting in bed NAD. BP better controlled on PO meds 147/58 . Afebrile, States she feels at her baseline. Denies h/a, n/v, f/c, chest pain, palpitations , sob, edema, abd pain, n/v, diarrhea OBJECTIVE: PHYSICAL EXAM GENERAL: The patient is awake, alert, and fully oriented, in no acute distress. HEAD: Normal with no signs of trauma. EYES: PERRL, extraocular movements intact, sclera anicteric, R conjunctiva blood shot. No ptosis. vision intact ENT:moist mucous membranes. NECK: supple. LUNGS: Breath sounds equal, clear to auscultation bilaterally HEART: Regular rate and rhythm, S1, S2 systolic murmur best heart at left sup sternal boarder with mid syst click ABDOMEN: Soft, nontender, nondistended, normoactive bowel sounds EXTREMITIES: 2+ pulses, warm, well-perfused, no edema. NEUROLOGICAL: Cranial nerves II through XII grossly intact. Normal speech, gait not observed. PSYCH: Normal mood, normal affect. SKIN: Warm, dry LABS HOSPITAL COURSE: Date of Admission:03/01/17 This is a 71 yr old egyptian-speaking woman with ESRD on HD (m/w/f, s/p HD today) , HTN, diastolic CHF, NIDDM II, afib, presents to ED with elevated BP. She was at dialysis and was told BP was very high, she had a light headache and came to the ED for further evaluation. She says she is complaint with all her medications, taking them as prescribed. She did not eat much today, only an egg and some juice, typically she eats a healthy diet including vegetables, denies salt use. Patient has several recent hospitalizations for elevated blood pressure. She was admitted to ICU on Nitro drip, then switched to labetalol drip. the next morning she was seen by renal and taken off the drips, placed on PO meds labetalol 400 bid, cozaar 100d, procardia xl 60 bid, aldactone 100 d, cardura 1 daily. her BP was stabilized and she was dcd home. Date of Discharge: 03/04/17 Minutes to complete discharge: 60 (na) Discharge Summary Reason For Visit: HYPERTENSIVE URGENCY Condition: Stable - Instructions Referrals: Alf Mcmahan MD [Staff Physician] - 1 Week Kimbrely Dumont MD [Staff Physician] - 1 Week (to work you up for Diabetus) Disposition: HOME - Home Medications Comprehensive Discharge Medication List: Ambulatory Orders Calcium Acetate [Phoslo -] 667 mg PO TID 01/08/17 Losartan Potassium 100 mg PO DAILY 01/08/17 Nifedipine ER [Procardia XL -] 60 mg PO BID 01/08/17 Pravastatin Sodium 20 mg PO DAILY 01/08/17 Labetalol HCl [Normodyne -] 400 mg PO BID #0 tablet 01/11/17 Aspirin Coated [Ecotrin -] 81 mg PO DAILY #100 tab 03/03/17 Calcium Acetate [Phoslo -] 667 mg PO TIDCM #100 tab 03/03/17 Doxazosin Mesylate [Cardura -] 1 mg PO DAILY #30 tablet 03/03/17 Doxazosin Mesylate [Cardura -] 1 mg PO HS #30 tablet 03/03/17 Polyvinyl Alcohol [Artificial Tears] 1 drop OU BID #15 ml 03/03/17 Spironolactone [Aldactone -] 100 mg PO DAILY #30 tablet 03/03/17 Problem List - Problems (1) Chronic renal failure Code(s): N18.9 - CHRONIC KIDNEY DISEASE, UNSPECIFIED Qualifiers: Chronic kidney disease stage: stage 5 Qualified Code(s): N18.5 - Chronic kidney disease, stage 5 (2) Diabetes type 2, controlled Code(s): E11.9 - TYPE 2 DIABETES MELLITUS WITHOUT COMPLICATIONS Qualifiers: Diabetes mellitus complication status: with kidney complications Chronic kidney disease stage: stage 5, not on chronic dialysis (3) Hypertensive urgency Code(s): I10 - ESSENTIAL (PRIMARY) HYPERTENSION (4) Murmur, cardiac Code(s): R01.1 - CARDIAC MURMUR, UNSPECIFIED (5) Paroxysmal atrial fibrillation Code(s): I48.0 - PAROXYSMAL ATRIAL FIBRILLATION (6) Anemia Code(s): D64.9 - ANEMIA, UNSPECIFIED Qualifiers: Anemia type: unspecified type Qualified Code(s): D64.9 - Anemia, unspecified (7) Asymptomatic hypertensive urgency Code(s): I16.0 - HYPERTENSIVE URGENCY (8) Renal insufficiency Code(s): N28.9 - DISORDER OF KIDNEY AND URETER, UNSPECIFIED (9) Anemia, chronic renal failure Code(s): N18.9 - CHRONIC KIDNEY DISEASE, UNSPECIFIED D63.1 - ANEMIA IN CHRONIC KIDNEY DISEASE (10) CKD (chronic kidney disease) Code(s): N18.9 - CHRONIC KIDNEY DISEASE, UNSPECIFIED (11) Diabetes Code(s): E11.9 - TYPE 2 DIABETES MELLITUS WITHOUT COMPLICATIONS (12) End stage renal disease Code(s): N18.6 - END STAGE RENAL DISEASE (13) Hypertension Code(s): I10 - ESSENTIAL (PRIMARY) HYPERTENSION Qualifiers: Hypertension type: essential hypertension Qualified Code(s): I10 - Essential (primary) hypertension (14) Hypertensive renal disease Code(s): I12.9 - HYPERTENSIVE CHRONIC KIDNEY DISEASE W STG 1-4/UNSP CHR KDNY (15) Congestive heart failure Code(s): I50.9 - HEART FAILURE, UNSPECIFIED This patient is new to me today: No Emergency Visit: Yes ED Registration Date: 03/01/17 Care time: The patient presented to the Emergency Department on the above date and was hospitalized for further evaluation of their emergent condition. Critical Care patient: No - Discharge Referral Referred to [facility] Med P.C.: No
== END 2017-03-03 19:32 | disposition home or self-care (01) | DRG 199 ==
LOC: JER 23:08 → SUPCPDRO 23:08 → JERBED 03-01 02:00 → UNDOADMIN 03-01 02:08 → JICU 03-01 08:08 → J7W 03-02 13:43
PROVIDERS: ADMIT Internal Medicine; ATTEND Internal Medicine
PROC: 5A1D60Z (ICD-10-PCS; principal; 2017-03-01)
DX: I16.0 Hypertensive urgency (principal); E11.22 Type 2 diabetes mellitus with diabetic chronic kidney disease; I13.2 Hypertensive heart and chronic kidney disease with heart failure and with stage 5 chronic kidney disease, or end stage renal disease; I50.32 Chronic diastolic (congestive) heart failure; Z99.2 Dependence on renal dialysis; E78.5 Hyperlipidemia, unspecified; N18.6 End stage renal disease; R01.1 Cardiac murmur, unspecified; I48.0 Paroxysmal atrial fibrillation; Z86.73 Personal history of transient ischemic attack (TIA), and cerebral infarction without residual deficits; R94.31 Abnormal electrocardiogram [ECG] [EKG]; E87.5 Hyperkalemia; N25.0 Renal osteodystrophy; N17.9 Acute kidney failure, unspecified; I27.2 Other secondary pulmonary hypertension; S05.01XA Injury of conjunctiva and corneal abrasion without foreign body, right eye, initial encounter; X58.XXXA Exposure to other specified factors, initial encounter; Y92.230 Patient room in hospital as the place of occurrence of the external cause
CPT/HCPCS: 36415; 71010-TC; 80048; 80053; 82550; 83735; 84100; 84484; 85025; 85027; 85610; 86850; 86900; 86901; 93005; 93010; 93306-TC; 99283-25; G0480

== ENCOUNTER 2017-05-16 20:00 | Emergency (ER) | payer OTHER ==
[2017-05-16 20:09] VITALS: BMI 28.3
--- NOTE | 2017-05-16 20:19 | PDOC ---
History of Present Illness - General History Source: Patient Exam Limitations: No Limitations - History of Present Illness Initial Comments: 05/16/17 20:41 The patient is a 71 year old female with significant past medical history of ESRD (on HD MWF), CHF, hypertension, hyperlipidemia, bilateral cataracts and diabetes who presents to the ED with complaint of dizziness. Patient states that before HD she began to feel dizzy and after 3.5 hours of HD she was still feeling dizzy. She states that she feels as if the room is spinning. Patient reports frontal headache. She denies any blurry vision. She states that her vision is at baseline. The patient denies fever, chills, cough, abdominal pain, nausea, vomiting and diarrhea. Allergies: NKDA Social History: No alcohol, tobacco, or drug use reported. Past Surgical History: AV Fistula/Graft on LUE <Kathy Peña - Last Filed: 05/16/17 20:41> <Abhishek Walton - Last Filed: 05/17/17 01:26> - General Chief Complaint: Weakness Stated Complaint: WEAKNESS Time Seen by Provider: 05/16/17 20:17 Past History <Kathy Peña - Last Filed: 05/16/17 20:41> - Past Medical History Anemia: Yes Asthma: No Cancer: No Cardiac Disorders: No CVA: No COPD: No CHF: Yes Dementia: No Diabetes: Yes Dialysis: Yes GI Disorders: No Disorders: Yes (esrd, dialysis) HTN: Yes Hypercholesterolemia: Yes Liver Disease: Yes Seizures: No Thyroid Disease: No - Surgical History Abdominal Surgery: Yes Appendectomy: No Cardiac Surgery: No Cholecystectomy: No Lung Surgery: No Neurologic Surgery: No Orthopedic Surgery: No - Immunization History Immunization Up to Date: Yes - Psycho/Social/Smoking Cessation Hx Anxiety: No Suicidal Ideation: No Smoking History: Never smoked Have you smoked in the past 12 months: No Number of Cigarettes Smoked Daily: 0 Information on smoking cessation initiated: No Hx Alcohol Use: No Drug/Substance Use Hx: No Substance Use Type: None Hx Substance Use Treatment: No <Abhishek Walton - Last Filed: 05/17/17 01:26> - Past Medical History Allergies/Adverse Reactions: Allergies Allergy/AdvReac Type Severity Reaction Status Date / Time No Known Allergies Allergy Verified 05/16/17 20:07 Home Medications: Ambulatory Orders Calcium Acetate [Phoslo -] 667 mg PO TID 01/08/17 Losartan Potassium 100 mg PO DAILY 01/08/17 Nifedipine ER [Procardia XL -] 60 mg PO BID 01/08/17 Pravastatin Sodium 20 mg PO DAILY 01/08/17 Labetalol HCl [Normodyne -] 400 mg PO BID #0 tablet 01/11/17 Aspirin Coated [Ecotrin -] 81 mg PO DAILY #100 tab 03/03/17 Calcium Acetate [Phoslo -] 667 mg PO TIDCM #100 tab 03/03/17 Doxazosin Mesylate [Cardura -] 1 mg PO DAILY #30 tablet 03/03/17 Polyvinyl Alcohol [Artificial Tears] 1 drop OU BID #15 ml 03/03/17 Spironolactone [Aldactone -] 100 mg PO DAILY #30 tablet 03/03/17 Meclizine HCl 25 mg PO TID #20 tab.chew 05/17/17 Review of Systems - Review of Systems Able to Perform ROS?: Yes Comments:: 05/16/17 20:41 CONSTITUTIONAL: No fever, no chills, no fatigue EYES: No visual changes ENT: No ear pain, no sore throat CARDIOVASCULAR: No chest pain, no palpitations RESPIRATORY: No cough, no SOB GI: No abdominal pain, no nausea, no vomiting, no constipation, no diarrhea GENITOURINARY: No dysuria, no frequency, no hematuria MUSCULOSKELETAL: No back pain, no joint pain, no myalgias SKIN: No rash NEURO: +dizziness. No headache <Kathy Peña - Last Filed: 05/16/17 20:41> *Physical Exam - Vital Signs Last Vital Signs Temp Pulse Resp BP Pulse Ox 97.9 F 64 18 175/59 99 05/16/17 20:07 05/16/17 20:07 05/16/17 20:07 05/16/17 20:07 05/16/17 20:24 - Physical Exam Comments: 05/16/17 20:43 CONSTITUTIONAL: Well-appearing; well-nourished; in no apparent distress HEAD: Normocephalic; atraumatic EYES: (+)Deformed right pupil nonreactive, +deformed left pupil nonreactive. ENMT: External appears normal; normal oropharynx NECK: Supple; non-tender; no cervical lymphadenopathy CARD: (+)3/6 holosystolic murmur best heard in right second intercostal space. Normal S1, S2; no rubs, or gallops RESP: Normal chest excursion with respiration; breath sounds clear and equal bilaterally; no wheezes, rhonchi, or rales ABD: Soft, non-distended; non-tender; no palpable organomegaly, no palpable hernias EXT: Normal ROM in all four extremities; non-tender to palpation; distal pulses intact SKIN: Warm, dry, no rash NEURO: No focal neurological deficiencies. <Kathy Peña - Last Filed: 05/16/17 20:41> - Vital Signs Last Vital Signs Temp Pulse Resp BP Pulse Ox 97.9 F 64 18 175/59 97 05/16/17 20:07 05/16/17 20:07 05/16/17 20:07 05/16/17 20:07 05/16/17 20:07 <Abhsihek Walton - Last Filed: 05/17/17 01:26> Heart Score/ECG Review #1 05/16/17 20:45 Normal sinus rhythm at 62 bpm left anterior fascicular block minimal voltage criteria for LVH, may be normal variant T wav abnormality, consider lateral ischemia Prolonger QT <Kathy Peña - Last Filed: 05/16/17 20:41> ED Treatment Course - LABORATORY CBC & Chemistry Diagram: 05/16/17 20:55 05/16/17 20:55 <Abhishek Walton - Last Filed: 05/17/17 01:26> Medical Decision Making - Medical Decision Making 05/17/17 01:22 Patient is 71-year-old female with multiple comorbidities, history of end-stage renal disease on hemodialysis (Sunday) brought in by EMS for intermittent vertigo during and immediately after dialysis. Patient also complains of mild intermittent headache that had resolved. In the ER, patient is noted to be awake and alert, asymptomatic, resting comfortably. Cranial nerves 2 through 12 are grossly intact; motor is 5 of 54; there is no pronation drift; patient ambulates without assistance of a walker. Patient's EKG revealed normal sinus rhythm with left fascicular block, voltage criteria for LVH via lead aVL, mildly prolonged QTc (potassium and magnesium appear Within normal limit), and inverted T waves in 1, aVL which appear unchanged from previous. Initial set of cardiac enzymes showed a minimally elevated troponin and a mildly elevated CPK. Second set of cardiac enzymes revealed a normal CPK and an unchanged troponin likely related to patient's chronic renal insufficiency rather than acute IL. Patient at this time is asymptomatic and will be discharged with outpatient follow-up. <Abhishek Walton - Last Filed: 05/17/17 01:26> *DC/Admit/Observation/Transfer - Attestations Scribe Attestion: 05/16/17 20:44 Documentation prepared by SANAM Carbajal, acting as ophthalmic medical technologist for Abhishek Walton MD. <Kathy Peña - Last Filed: 05/16/17 20:41> - Attestations Physician Attestion: 05/17/17 01:21 The documentation was prepared by the scribe under my direct supervision. I have reviewed the documentation which correctly represents the findings, medical decision-making and critical action taken by me. <Abhishek Walton - Last Filed: 05/17/17 01:26> Diagnosis at time of Disposition: Dizziness, Vertigo, ESRD (end stage renal disease) on dialysis - Discharge Dispostion Disposition: HOME Condition at time of disposition: Stable - Referrals Referrals: Sobeida Chavez MD [Primary Care Provider] - - Patient Instructions Printed Discharge Instructions: Vertigo
[2017-05-16] MEDS ORDERED: MECLIZINE HCL 25 MG TABLET (FP) PO ONE (20:33)
[2017-05-16] MEDS ORDERED: MECLIZINE HCL 25 MG TABLET (FP) ONE (20:50)
[2017-05-16 21:13] LABS: BASOPHIL 1.1 % (0-2.0); EOSINOPHIL 4.7 % (0-4.5); MCH 26.6 pg (25.7-33.7); MCHC 32.4 g/dl (32.0-36.0); MEAN CELL VOLUME 82.2 fl (80-96); MEAN PLT VOLUME 9.6 fl (7.5-11.1); NEUTROPHILS 67.4 % (42.8-82.8); PLATELET COUNT 121 K/MM3 (134-434); RDW 16.1 % (11.6-15.6); WHITE BLOOD COUNT 4.8 K/mm3 (4.0-10.0)
[2017-05-16 21:36] LABS: INR 1.09 (0.82-1.09)
[2017-05-16 21:44] LABS: ALBUMIN 4.3 g/dl (3.4-5.0); ANION GAP 8 (8-16); BILIRUBIN,TOTAL 0.4 mg/dL (0.2-1.0); CALCIUM 9.4 mg/dL (8.5-10.1); CO2 31 mmol/L (21-32); CREATININE 2.7 mg/dL (0.55-1.02); GLUCOSE,RANDOM 202 mg/dL (74-106); MAGNESIUM 2.4 mg/dL (1.8-2.4); SGOT/AST 13 U/L (15-37); SGPT/ALT 24 U/L (12-78); TOT PROT 8.2 g/dl (6.4-8.2)
[2017-05-16 21:47] LABS: ALK PHOS 159 U/L (45-117); TROPONIN I 0.06 ng/ml (0.00-0.05)
[2017-05-16 23:25] VITALS: BP 164/49; PULSE 66; TEMP 98.9
[2017-05-17 01:16] LABS: TROPONIN I 0.06 ng/ml (0.00-0.05)
--- NOTE | 2017-05-17 13:09 | EKG ---
Test Reason : Blood Pressure : / mmHG Vent. Rate : 062 BPM Atrial Rate : 062 BPM P-R Int : 196 ms QRS Dur : 110 ms QT Int : 474 ms P-R-T Axes : 050 -45 099 degrees QTc Int : 481 ms NORMAL SINUS RHYTHM LEFT ANTERIOR FASCICULAR BLOCK MINIMAL VOLTAGE CRITERIA FOR LVH, MAY BE NORMAL VARIANT T WAVE ABNORMALITY, CONSIDER LATERAL ISCHEMIA PROLONGED QT ABNORMAL ECG WHEN COMPARED WITH ECG OF 01-MAR-2017 00:46, INCOMPLETE RIGHT BUNDLE BRANCH BLOCK IS NO LONGER PRESENT Confirmed by KLEVER NAVA MD ([id number]) on 05/17/2017 1:09:21 PM Referred By: Confirmed By:KLEVER NAVA MD
== END 2017-05-17 01:37 | disposition home or self-care (01) ==
LOC: JER 20:00
DX: R42 Dizziness and giddiness (principal); I12.0 Hypertensive chronic kidney disease with stage 5 chronic kidney disease or end stage renal disease; N18.6 End stage renal disease; Z99.2 Dependence on renal dialysis
CPT/HCPCS: 36415; 80053; 82550; 82553; 83735; 84484; 85025; 85610; 93005; 93010; 99284-25

== ENCOUNTER 2017-10-15 19:45 | Inpatient (IN) | payer OTHER ==
--- NOTE | 2017-10-15 21:51 | PDOC ---
Attending Attestation - HPI HPI: 10/15/17 22:57 71 F with a significant past medical history of ESRD (on HD MWF), CHF, HTN, HLD , diabetes, who presents to the emergency department with worsening SOB and cough for 4 days. She reports of a productive cough with white sputum, subjective fever (no temperature taken), and generalized myalgias. Pt denies CP, leg swelling, ZENDEJAS, and dizziness. Pt denies chills, n/v/d. Pt denies dysuria, frequency, urgency and hematuria. - Physicial Exam PE: 10/15/17 22:57 GENERAL: Awake, alert, and fully oriented, (+) appears chronically ill. HEAD: No signs of trauma EYES: PERRLA, EOMI, sclera anicteric, conjunctiva clear ENT: Auricles normal inspection, hearing grossly normal, nares patent, oropharynx clear without exudates. Moist mucosa NECK: Normal ROM, supple, no lymphadenopathy, JVD, or masses LUNGS: (+) Tachypneic. (+) Diffuse expiratory wheezes. (+) Abdominal contractions during breathing. No crackles HEART: Regular rate and rhythm, normal S1 and S2, no murmurs, rubs or gallops ABDOMEN: Soft, nontender, normoactive bowel sounds. No guarding, no rebound. No masses EXTREMITIES: Normal range of motion, no edema. No clubbing or cyanosis. No cords, erythema, or tenderness NEUROLOGICAL: Cranial nerves II through XII grossly intact. Normal speech SKIN: Warm, Dry, normal turgor, no rashes or lesions noted. <La Ospina - Last Filed: 10/15/17 23:03> - Resident Resident Name: Nayan Mckeon - ED Attending Attestation I have performed the following: I have examined & evaluated the patient, The case was reviewed & discussed with the resident, I agree w/resident's findings & plan, Exceptions are as noted - Medical Decision Making Pt with recent subjective fever, productive cough with white sputum. In light of history of HD, with fever, cough, and wheezing, will admit for suspected pna. CXR inadequate, however, clinically, patient presentation is suggestive of pneumonia. <Marielle Orellana - Last Filed: 10/16/17 00:24>
[2017-10-15 22:13] LABS: BASO % 0.9 % (0-2.0); EOS % 1.2 % (0-4.5); MCHC 33.2 g/dl (32.0-36.0); MEAN CELL VOLUME 84.3 fl (80-96); MEAN PLT VOLUME 9.3 fl (7.5-11.1); NEUT % 79.7 % (42.8-82.8); PLATELET COUNT 106 K/MM3 (134-434)
--- NOTE | 2017-10-15 22:18 | PDOC ---
History of Present Illness - General Chief Complaint: Shortness of Breath Stated Complaint: PAIN/SOB Time Seen by Provider: 10/15/17 21:46 - History of Present Illness Initial Comments: 10/15/17 22:18 71 yo F with h/o HTN, NIDDM, HLD, CHF, and CKD who presents with SOB. Patient states that on this week ( 10/11/17) she began to experience SOB, and yellow productive cough. Now endorses worsening symptoms including myalgias, Ventura , pleuritic chest pain, and subjective fevers. Symptoms refractory to OTC Tylenol. Denies N/V, lightheadedness, ZENDEJAS, weakness, abdominal pain, urinary complaints. Denies h/o MS, Stent, CABG. Denies h/o CVA/TIA. Denies tobacco use or h/o lung disease. Past History - Past Medical History Allergies/Adverse Reactions: Allergies Allergy/AdvReac Type Severity Reaction Status Date / Time No Known Allergies Allergy Verified 10/15/17 20:03 Home Medications: Ambulatory Orders Losartan Potassium 100 mg PO DAILY 01/08/17 Nifedipine ER [Procardia XL -] 60 mg PO BID 01/08/17 Pravastatin Sodium 20 mg PO DAILY 01/08/17 Labetalol HCl [Normodyne -] 400 mg PO BID #0 tablet 01/11/17 Atorvastatin Ca [Lipitor] 10 mg PO HS 10/15/17 Clonidine HCl [Clonidine HCl ER] 0.1 mg PO Q8H 10/15/17 Ferric Citrate [Auryxia] 210 mg PO TID 10/15/17 Insulin Glargine,Hum.rec.anlog [Basaglar Kwikpen U-100] 10 unit SQ HS 10/15/17 Labetalol HCl [Normodyne -] 400 mg PO BID 10/15/17 Lanthanum Carbonate [Fosrenol] 1,000 mg PO QID 10/15/17 Spironolactone [Aldactone -] 25 mg PO BID 10/15/17 Torsemide [Demadex] 80 mg PO DAILY 10/15/17 Anemia: Yes Asthma: No Cancer: No Cardiac Disorders: No CVA: No COPD: No CHF: Yes Dementia: No Diabetes: Yes Dialysis: Yes GI Disorders: No Disorders: Yes (esrd, dialysis) HTN: Yes Hypercholesterolemia: Yes Liver Disease: Yes Seizures: No Thyroid Disease: No - Surgical History Abdominal Surgery: Yes Appendectomy: No Cardiac Surgery: No Cholecystectomy: No Lung Surgery: No Neurologic Surgery: No Orthopedic Surgery: No - Immunization History Immunization Up to Date: Yes - Suicide/Smoking/Psychosocial Hx Smoking History: Never smoked Have you smoked in the past 12 months: No Number of Cigarettes Smoked Daily: 0 Information on smoking cessation initiated: No Hx Alcohol Use: No Drug/Substance Use Hx: No Substance Use Type: None Hx Substance Use Treatment: No Review of Systems - Review of Systems Comments:: 10/15/17 22:18 GENERAL/CONSTITUTIONAL: + myalgias. No fever or chills. No weakness. HEAD, EYES, EARS, NOSE AND THROAT: No change in vision. No ear pain or discharge. No sore throat.- CARDIOVASCULAR: + chest pain and shortness of breath RESPIRATORY: No cough, wheezing, or hemoptysis. GASTROINTESTINAL: No nausea, vomiting, diarrhea or constipation. GENITOURINARY: No dysuria, frequency, or change in urination. MUSCULOSKELETAL: No joint or muscle swelling or pain. No neck or back pain. SKIN: No rash NEUROLOGIC: No headache, vertigo, loss of consciousness, or change in strength/ sensation. ENDOCRINE: No increased thirst. No abnormal weight change HEMATOLOGIC/LYMPHATIC: No anemia, easy bleeding, or history of blood clots. ALLERGIC/IMMUNOLOGIC: No hives or skin allergy. *Physical Exam - Vital Signs Last Vital Signs Temp Pulse Resp BP Pulse Ox 98.9 F 79 14 155/63 95 10/15/17 20:03 10/15/17 20:03 10/15/17 20:03 10/15/17 20:03 10/15/17 20:03 - Physical Exam Comments: 10/15/17 22:18 GENERAL: Awake, alert, and fully oriented, in no acute distress HEAD: No signs of trauma, normocephalic, atraumatic EYES: PERRLA, EOMI, sclera anicteric, conjunctiva clear ENT: Auricles normal inspection, hearing grossly normal, nares patent, oropharynx clear without exudates. Moist mucosa NECK: Normal ROM, supple, no lymphadenopathy, JVD, or masses LUNGS: BL exp and insp rhonci and rales present in BL lung bases. Patient tachypneic. HEART: Regular rate and rhythm, normal S1 and S2, no murmurs, rubs or gallops, peripheral pulses normal and equal bilaterally. ABDOMEN: Soft, nontender, normoactive bowel sounds. No guarding, no rebound. No masses EXTREMITIES :Left sided AC AV fistula in place. Normal inspection, Normal range of motion, no edema. No clubbing or cyanosis. SKIN: Warm, Dry, normal turgor, no rashes or lesions noted. Heart Score/ECG Review - History History: Slightly suspicious - Electrocardiogram EKG: Normal - Age Age: >/= 65 - Risk Factors Risk Factors Heart Score: Yes Hx Hypercholesterolemia, Yes Hx Hypertension, Yes Hx Diabetes Based on the list above the patient has:: >/=3 risk factors or Hx atherosclerotic disease - Troponin Troponin: 1-3x normal limit - Score Heart Score - Total: 5 ED Treatment Course - LABORATORY CBC & Chemistry Diagram: 10/15/17 21:30 10/15/17 21:30 - ADDITIONAL ORDERS Additional order review: 10/15/17 21:30 RBC 3.63 MCV 84.3 MCHC 33.2 RDW 17.0 H MPV 9.3 Neutrophils % 79.7 Lymphocytes % 6.7 L D Monocytes % 11.5 H Eosinophils % 1.2 Basophils % 0.9 Medical Decision Making - Medical Decision Making 10/15/17 22:20 71 yo F with h/o HTN, NIDDM, HLD, CHF, and CKD ( dialysis m/w/f) who presents with worsening SOB beginning ( 10/11/17) and yellow sputum productive cough. asx. w/ myalgias, Ventura, pleuritic chest pain, and subjective fevers. Denies N/V, lightheadedness, ZENDEJAS, weakness, abdominal pain, urinary complaints. Denies h/o MS, Stent, CABG. Denies h/o CVA/TIA. Denies tobacco use or h/o lung disease. Physical exam with BL insp/exp rhonci and BL Lung base rales. Absent ext swelling. Hemodynamically stable and non hypoxic on RA. Will evaulate this patient for PNA vs. volume overload 2/2 CHF vs. CKD. ED Course: 10/15/17 23:03 EKG: NSR with RBBB, absent EVERARDO, STD, or TWI. CXR: 10/15/17 23:13 CBC: Unremarkable 10/15/17 23:14 Cr: 3.9 ( 3-6) BUN: 19 10/15/17 23:14 Trop 0.06 ( 0.06-05/17/2017) 10/15/17 23:15 Heart Score 5 13 % risk MACE 10/15/17 23:16 CXR: cardiomegaly with no acute infiltrates or pleural effusions. 10/15/17 23:16 Duoneb therapy 10/15/17 23:34 Admit to Med/Surg Obs *DC/Admit/Observation/Transfer Diagnosis at time of Disposition: SOB (shortness of breath) - Discharge Dispostion Admit: Yes - Referrals Referrals: Ken Burgos [Primary Care Provider] - - Patient Instructions - Post Discharge Activity
[2017-10-15 22:25] LABS: INR 1.12 (0.82-1.09); PROTHROMBIN TIME (PATIENT) 12.7 SEC (9.98-11.88)
[2017-10-15 22:38] LABS: ALBUMIN 4.1 g/dl (3.4-5.0); ANION GAP 7 (8-16); BILIRUBIN,TOTAL 0.6 mg/dL (0.2-1.0); CALCIUM 8.6 mg/dL (8.5-10.1); CO2 30 mmol/L (21-32); CREATININE 3.9 mg/dL (0.55-1.02); GLUCOSE,RANDOM 165 mg/dL (74-106); SGOT/AST 19 U/L (15-37); SGPT/ALT 27 U/L (12-78)
[2017-10-15 22:41] LABS: ALK PHOS 124 U/L (45-117); CPK 152 IU/L (26-192); TROPONIN I 0.06 ng/ml (0.00-0.05)
[2017-10-15] MEDS ORDERED: ALBUTEROL SO4 2.5/IPRATROPIUM 0.5 INH SOL 3 ML VIAL.NEB. NEB ONE ×2 (22:53→23:06)
--- NOTE | 2017-10-15 23:51 | HP ---
Admitting History and Physical - Primary Care Physician PCP: Ken Burgos - Admission Chief Complaint: SOB, Productive Cough, Pleuritic Chest Pain History of Present Illness: This is a 71 y/o woman with a past medical history of ESRD (HD- M,W,F). Who presents to the ED with SOB, productive cough-yellow phlegm x 4 days. Patient also reports having subjective fevers, myalgias, GLEASON, pleuritic CP. Patient reports taking Tylenol with little relief, Patient received dialysis on Sunday and after her treatment she was sent in for evaluation. Patient denies dizziness , AP, N/V/D, constipation, dysuria. 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) Cardiovascular: Yes: AFIB, CHF (chronic diastolic), HTN, Hyperlipdemia Renal/: Yes: Renal Failure, Hemodialysis Heme/Onc: Yes: Anemia Musculoskeletal: Yes: Chronic low back pain Endocrine: Yes: Diabetes Mellitus - Past Surgical History Past Surgical History: Yes: AV Fistula/Graft - Smoking History Smoking history: Never smoked Have you smoked in the past 12 months: No Aproximately how many cigarettes per day: 0 - Alcohol/Substance Use Hx Alcohol Use: No History of Substance Use: reports: None - Social History Usual Living Arrangement: Yes: Alone ADL: Independent History of Recent Travel: No Home Medications - Allergies Allergies/Adverse Reactions: Allergies Allergy/AdvReac Type Severity Reaction Status Date / Time No Known Allergies Allergy Verified 10/15/17 20:03 - Home Medications Home Medications: Ambulatory Orders Losartan Potassium 100 mg PO DAILY 01/08/17 Nifedipine ER [Procardia XL -] 60 mg PO BID 01/08/17 Labetalol HCl [Normodyne -] 400 mg PO TID 10/16/17 Home Medications (free text): Losartan 100mg po daily. Procardia XL 60mg po BID. Labetalol HCL 200mg po TID. Minoxidil 10mg po HS. Calcium Acetate 667mg po TID Family Disease History - Family Disease History Family History: Unable to Obtain Review of Systems - Review of Systems Constitutional: reports: Chills, Diaphoresis, Fever Eyes: reports: No Symptoms HENT: reports: No Symptoms Neck: reports: No Symptoms Cardiovascular: reports: Chest Pain (Pleuritic- worse with cough), Shortness of Breath Respiratory: reports: Cough, SOB, SOB on Exertion, Wheezing Gastrointestinal: reports: No Symptoms Genitourinary: reports: No Symptoms Breasts: reports: No Symptoms Reported Musculoskeletal: reports: Muscle Pain Integumentary: reports: No Symptoms Neurological: reports: No Symptoms Endocrine: reports: No Symptoms Hematology/Lymphatic: reports: No Symptoms Psychiatric: reports: No Symptoms Physical Examination Vital Signs: Vital Signs Temperature 98.9 F 10/15/17 20:03 Pulse Rate 79 10/15/17 20:03 Respiratory Rate 14 10/15/17 20:03 Blood Pressure 155/63 10/15/17 20:03 O2 Sat by Pulse Oximetry (%) 95 10/15/17 20:03 Constitutional: Yes: Well Nourished, Moderate Distress Eyes: Yes: WNL, Conjunctiva Clear, EOM Intact, PERRL HENT: Yes: WNL, Atraumatic, Normocephalic Neck: Yes: WNL, Supple, Trachea Midline Cardiovascular: Yes: Regular Rate and Rhythm, Murmur (Grade 2/6 LSB), S1, S2 Respiratory: Yes: Cough, On Nasal O2, SOB, SOB on Exertion, Wheezes Gastrointestinal: Yes: WNL Breast(s): Yes: WNL Extremities: Yes: Other (AV Fistula- Left Upper Arm, +bruit/thrill) Edema: No Peripheral Pulses WNL: Yes Neurological: Yes: WNL, Alert, Oriented ...Motor Strength: WNL Psychiatric: Yes: WNL, Alert, Oriented Labs: CBC, BMP 10/15/17 21:30 10/15/17 21:30 Problem List - Problems (1) Shortness of breath Code(s): R06.02 - SHORTNESS OF BREATH (2) ESRD (end stage renal disease) on dialysis Code(s): N18.6 - END STAGE RENAL DISEASE; Z99.2 - DEPENDENCE ON RENAL DIALYSIS (3) Acute on chronic diastolic (congestive) heart failure Code(s): I50.33 - ACUTE ON CHRONIC DIASTOLIC (CONGESTIVE) HEART FAILURE (4) Anemia, chronic renal failure Code(s): N18.9 - CHRONIC KIDNEY DISEASE, UNSPECIFIED; D63.1 - ANEMIA IN CHRONIC KIDNEY DISEASE (5) Diabetes type 2, controlled Code(s): E11.9 - TYPE 2 DIABETES MELLITUS WITHOUT COMPLICATIONS Qualifiers: Diabetes mellitus complication status: with kidney complications Chronic kidney disease stage: stage 5, not on chronic dialysis (6) Murmur, cardiac Code(s): R01.1 - CARDIAC MURMUR, UNSPECIFIED (7) Paroxysmal atrial fibrillation Code(s): I48.0 - PAROXYSMAL ATRIAL FIBRILLATION (8) CKD (chronic kidney disease) Code(s): N18.9 - CHRONIC KIDNEY DISEASE, UNSPECIFIED (9) Hyperlipidemia Code(s): E78.5 - HYPERLIPIDEMIA, UNSPECIFIED Qualifiers: Hyperlipidemia type: pure hypercholesterolemia (10) Hypertension Code(s): I10 - ESSENTIAL (PRIMARY) HYPERTENSION Qualifiers: Hypertension type: essential hypertension Qualified Code(s): I10 - Essential (primary) hypertension (11) DVT prophylaxis Code(s): [id number] - Visit type - Emergency Visit Emergency Visit: Yes ED Registration Date: 10/15/17 Care time: The patient presented to the Emergency Department on the above date and was hospitalized for further evaluation of their emergent condition. - New Patient This patient is new to me today: Yes Date on this admission: 10/15/17 - Critical Care Critical Care patient: No
[2017-10-16] MEDS ORDERED: ALBUTEROL SO4 2.5/IPRATROPIUM 0.5 INH SOL 3 ML VIAL.NEB. NEB PRN (00:12)
[2017-10-16 02:57] VITALS: BMI 29.3
[2017-10-16 08:18] LABS: BASO % 0.7 % (0-2.0); EOS % 1.4 % (0-4.5); MCH 27.4 pg (25.7-33.7); MCHC 32.4 g/dl (32.0-36.0); MEAN CELL VOLUME 84.6 fl (80-96); NEUT % 70.4 % (42.8-82.8); PLATELET COUNT 103 K/MM3 (134-434); RDW 17.3 % (11.6-15.6); WHITE BLOOD COUNT 7.4 K/mm3 (4.0-10.0)
[2017-10-16 08:50] LABS: ANION GAP 8 (8-16); CALCIUM 8.5 mg/dL (8.5-10.1); CO2 28 mmol/L (21-32); GLUCOSE,RANDOM 150 mg/dL (74-106); MAGNESIUM 2.6 mg/dL (1.8-2.4)
[2017-10-16 08:53] LABS: PHOSPHOROUS 5.2 mg/dL (2.5-4.9)
[2017-10-16] MEDS ORDERED: PT OWN MED DRAWER 7, Y5N ONE (09:05)
[2017-10-16] MEDS: CALCIUM ACETATE 667 MG CAPSULE (FP) PO SCH ×3 (09:12→17:43)
[2017-10-16] MEDS: NIFEdipine E.R 60 MG TABLET (UD) PO SCH ×2 (09:12→22:05)
[2017-10-16] MEDS: LABETALOL HCL 200 MG TABLET (FP) PO SCH ×3 (09:12→22:06)
[2017-10-16] MEDS: LOSARTAN POTASSIUM 100 MG TABLET PO SCH (10:06)
--- NOTE | 2017-10-16 11:02 | CON.PULM ---
Consult Consult Specialty:: PULMONARY Referred by:: RANCHO Schmitz Reason for Consultation:: shortness of breath - History of Present Illness Chief Complaint: shortness of breath History of Present Illness: 71yo female with h/o HTN, DM, hyperlipidemia, LV diastolic dysfunction, ESRD on HD who was admitted with worsening shortness of breath x 4 days. Reports a cough productive of white sputum. No fevers but with subjective chills and body aches. She reports wheezing as well but denies any history of asthma or COPD. She is a remote smoker. 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) Cardio/Vascular: Yes: AFIB, CHF (chronic diastolic), HTN, Hyperlipdemia Renal/: Yes: Renal Failure, Hemodialysis Musculoskeletal: Yes: Chronic low back pain Endocrine: Yes: Diabetes Mellitus - Past Surgical History Past Surgical History: Yes: AV Fistula/Graft - Alcohol/Substance Use Hx Alcohol Use: No History of Substance Use: reports: None - Smoking History Smoking history: Never smoked Have you smoked in the past 12 months: No Aproximately how many cigarettes per day: 0 - Social History ADL: Independent History of Recent Travel: No Home Medications - Allergies Allergies/Adverse Reactions: Allergies Allergy/AdvReac Type Severity Reaction Status Date / Time No Known Allergies Allergy Verified 10/15/17 20:03 - Home Medications Home Medications: Ambulatory Orders Losartan Potassium 100 mg PO DAILY 01/08/17 Nifedipine ER [Procardia XL -] 60 mg PO BID 01/08/17 Labetalol HCl [Normodyne -] 400 mg PO TID 10/16/17 Review of Systems - Review of Systems Constitutional: reports: Chills, Malaise, Weakness Eyes: denies: Recent Change in Vision HENT: denies: Nasal Congestion, Throat Pain Neck: denies: Stiffness, Tenderness Cardiovascular: reports: Shortness of Breath. denies: Chest Pain, Edema, Palpitations Respiratory: reports: Cough, SOB on Exertion, Wheezing. denies: Hemoptysis Gastrointestinal: denies: Abdominal Pain, Nausea, Vomiting Genitourinary: denies: Dysuria, Hematuria Neurological: denies: Dizziness, Headache Physical Exam Vital Sings: Vital Signs Temperature 99.7 F H 10/16/17 07:15 Pulse Rate 69 10/16/17 07:15 Respiratory Rate 20 10/16/17 07:15 Blood Pressure 182/72 10/16/17 07:15 O2 Sat by Pulse Oximetry (%) 99 10/15/17 23:38 Constitutional: Yes: Calm Eyes: Yes: Conjunctiva Clear, EOM Intact HENT: Yes: Atraumatic, Normocephalic Neck: Yes: Supple, Trachea Midline Cardiovascular: Yes: Regular Rate and Rhythm Respiratory: Yes: Rhonchi (scattered), Wheezes (scattered) ...Clubbing: No Gastrointestinal: Yes: Normal Bowel Sounds, Soft. No: Tenderness Edema: No Labs: CBC, BMP 10/16/17 07:30 10/16/17 07:30 Imaging - Results Chest X-ray: Report Reviewed, Image Reviewed (limited study, cardiomegaly, elevated right hemidiaphragm) Problem List - Problems (1) URI (upper respiratory infection) Code(s): J06.9 - ACUTE UPPER RESPIRATORY INFECTION, UNSPECIFIED (2) Acute bronchospasm Code(s): J98.01 - ACUTE BRONCHOSPASM (3) Diabetes Code(s): E11.9 - TYPE 2 DIABETES MELLITUS WITHOUT COMPLICATIONS (4) ESRD (end stage renal disease) on dialysis Code(s): N18.6 - END STAGE RENAL DISEASE; Z99.2 - DEPENDENCE ON RENAL DIALYSIS (5) Hyperlipidemia Code(s): E78.5 - HYPERLIPIDEMIA, UNSPECIFIED Qualifiers: Hyperlipidemia type: pure hypercholesterolemia (6) Hypertension Code(s): I10 - ESSENTIAL (PRIMARY) HYPERTENSION Qualifiers: Hypertension type: essential hypertension Qualified Code(s): I10 - Essential (primary) hypertension Assessment/Plan Upper Respiratory Tract Infection Acute Bronchospasm LV Diastolic Dysfunction Pulmonary HTN ESRD on HD HTN DM - will start short course of medrol x 48hrs and then reassess - inhaled bronchodilators standing and PRN - monitor fever curve, WBC trend - if spikes temp or with leukocytosis, may need CT chest as CXR not reliable due to body habitus - HD per renal - DVT prophylaxis Thank you for this consult Antonino Nayak MD
[2017-10-16] MEDS: methylPREDNISolone NA SUCC 40 MG/1 ML VIAL IVPUSH SCH ×2 (11:31→17:42)
[2017-10-16] MEDS: ALBUTEROL SO4 2.5/IPRATROPIUM 0.5 INH SOL 3 ML VIAL.NEB. NEB SCH ×3 (13:28→23:02)
--- NOTE | 2017-10-16 14:42 | EKG ---
Test Reason : Blood Pressure : / mmHG Vent. Rate : 075 BPM Atrial Rate : 075 BPM P-R Int : 182 ms QRS Dur : 116 ms QT Int : 430 ms P-R-T Axes : 059 -52 079 degrees QTc Int : 480 ms NORMAL SINUS RHYTHM RIGHT BUNDLE BRANCH BLOCK LEFT ANTERIOR FASCICULAR BLOCK BIFASCICULAR BLOCK MINIMAL VOLTAGE CRITERIA FOR LVH, MAY BE NORMAL VARIANT ABNORMAL ECG WHEN COMPARED WITH ECG OF 16-MAY-2017 20:16, RIGHT BUNDLE BRANCH BLOCK IS NOW PRESENT Confirmed by MARCELINO NEIL, DOMINICK ([id number]) on 10/16/2017 2:42:28 PM Referred By: Confirmed By:DOMINICK BENSON MD
--- NOTE | 2017-10-16 15:35 | CON.NEP ---
Consult Consult Specialty:: Nephrology Referred by:: Dr. Schmitz Reason for Consultation:: ESRD on HD - History of Present Illness Chief Complaint: SOB, Muscle pain, cough History of Present Illness: This is a 71 year old woman with PMhx of ESRD on HD (MWF), Difficult to control hypertension, Renal Osteodystrophy who presented to the ED with complaints of cough, subjective fever, muscle aches and admitted for r/o PNA/Influenza. Pt s/ p dialysis yesterday w/o issue. Symptoms started about 4 days ago. No Abd pain, N/V/D. + chest pain with cough. No Rash. No recent abx use. No LE swelling. 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) Cardio/Vascular: Yes: AFIB, CHF (chronic diastolic), HTN, Hyperlipdemia Renal/: Yes: Renal Failure, Hemodialysis Musculoskeletal: Yes: Chronic low back pain Endocrine: Yes: Diabetes Mellitus - Past Surgical History Past Surgical History: Yes: AV Fistula/Graft - Alcohol/Substance Use Hx Alcohol Use: No History of Substance Use: reports: None - Smoking History Smoking history: Never smoked Have you smoked in the past 12 months: No Aproximately how many cigarettes per day: 0 - Social History ADL: Independent History of Recent Travel: No Home Medications - Allergies Allergies/Adverse Reactions: Allergies Allergy/AdvReac Type Severity Reaction Status Date / Time No Known Allergies Allergy Verified 10/15/17 20:03 - Home Medications Home Medications: Ambulatory Orders Losartan Potassium 100 mg PO DAILY 01/08/17 Nifedipine ER [Procardia XL -] 60 mg PO BID 01/08/17 Labetalol HCl [Normodyne -] 400 mg PO TID 10/16/17 Family Disease History - Family Disease History Family History: Unremarkable Review of Systems - Review of Systems Constitutional: reports: Chills, Fever, Lethargy Eyes: reports: No Symptoms HENT: reports: No Symptoms Neck: reports: No Symptoms Cardiovascular: reports: No Symptoms Respiratory: reports: Cough, SOB Gastrointestinal: reports: No Symptoms Genitourinary: reports: No Symptoms Musculoskeletal: reports: Muscle Pain Integumentary: reports: No Symptoms Neurological: reports: No Symptoms Nephrology Consult - Height Height: 4 ft 11 in - Weight Weight: 65.913 kg - BMI Body Mass Index (BMI): 29.3 - Lab Results CBC,BMP: CBC, BMP 10/16/17 07:30 10/16/17 07:30 Anion Gap: Anion Gap Anion Gap 8 (8-16) 10/16/17 07:30 - Imaging Chest X-ray: Report Reviewed - Physical Examination Vital Signs: Vital Signs Temperature 97.7 F 10/16/17 15:00 Pulse Rate 64 10/16/17 15:00 Respiratory Rate 21 10/16/17 15:00 Blood Pressure 146/64 10/16/17 15:00 O2 Sat by Pulse Oximetry (%) 99 10/15/17 23:38 Constitutional: Yes: No Distress, Calm Eyes: Yes: Conjunctiva Clear HENT: Yes: Atraumatic Neck: Yes: Supple Cardiovascular: Yes: Regular Rate and Rhythm, S1, S2. No: Murmur, Rub Respiratory: Yes: Regular, CTA Bilaterally Gastrointestinal: Yes: Normal Bowel Sounds, Soft Access for Hemodialysis: AV Fistula Edema: No Assessment/Plan 71 year old woman with PMhx of ESRD on HD (MWF), Difficult to control hypertension, Renal Osteodystrophy who presented to the ED with complaints of cough, subjective fever, muscle aches and admitted for r/o PNA/Influenza. #SOB/Cough/Muscle Aches/Subjective Fever no vert PNA seen on CXR however it was a poor study continue supportive care continue steroids as per pulmonary Influenza negative on swab #ESRD on HD for HD tomorrow as inpatient UF as tolerated dose all meds for intermittent HD renal diet 1.2 L fluid restriction #Hypertension continue Losartan, Minoxidil, Nifedipine goal BP < 140/90 Thank you Will follow Alf Mcmahan DO Current Medications Acetaminophen (Tylenol -) 650 mg PO Q6H PRN PRN Reason: FEVER OR PAIN Albuterol/Ipratropium (Duoneb -) 1 amp NEB QIDR [facility], [facility] Last Admin: 10/16/17 13:28 Dose: 1 amp Calcium Acetate (Phoslo -) 667 mg PO TIDCM [facility], [facility] Last Admin: 10/16/17 11:31 Dose: 667 mg Labetalol HCl (Normodyne -) 200 mg PO TID [facility] Last Admin: 10/16/17 13:04 Dose: 200 mg Losartan Potassium (Losartan Potassium) 100 mg PO DAILY [facility] Last Admin: 10/16/17 10:06 Dose: 100 mg Methylprednisolone Sodium Succinate (Solu-Medrol -) 40 mg IVPUSH Q8H-IV [facility], [facility]1983 Last Admin: 10/16/17 11:31 Dose: 40 mg Minoxidil (Loniten -) 10 mg PO HS [facility] Nifedipine (Procardia Xl -) 60 mg PO BID [facility] Last Admin: 10/16/17 09:12 Dose: 60 mg
--- NOTE | 2017-10-16 16:35 | PN ---
Physical Exam: SUBJECTIVE: Patient seen and examined she complaints of cough and sputum production. Its hard for her to breath she is using oxygen today. OBJECTIVE: Vital Signs Period Temp Pulse Resp BP Sys/Parker Pulse Ox Last 24 Hr 97.7 F-99.7 F 64-79 14-21 146-186/63-74 95-99 PE Neuro: alert, awake, cn 2-12intact Pulm: course breath sounds b/l + nc + dyspnea CV: s1 s2 rrr no mrg Abd: s nt nd +bs Ext: LUE AVF, no le edema Laboratory Results - last 24 hr 10/16/17 10/16/17 10/16/17 00:21 05:05 07:30 WBC 7.4 RBC 3.61 Hgb 9.9 L Hct 30.5 L MCV 84.6 MCH 27.4 MCHC 32.4 RDW 17.3 H Plt Count 103 L MPV 10.0 Neutrophils % 70.4 Lymphocytes % 13.4 D Monocytes % 14.1 H Eosinophils % 1.4 Basophils % 0.7 PT with INR INR Sodium Potassium Chloride Carbon Dioxide Anion Gap BUN Creatinine Creat Clearance w eGFR Random Glucose Calcium Phosphorus Magnesium Total Bilirubin AST ALT Alkaline Phosphatase Creatine Kinase Creatine Kinase Index CK-MB (CK-2) Troponin I 0.07 H B-Natriuretic Peptide 98890.69 H Total Protein Albumin Lipase 10/16/17 10/16/17 07:30 07:30 WBC RBC Hgb Hct MCV MCH MCHC RDW Plt Count MPV Neutrophils % Lymphocytes % Monocytes % Eosinophils % Basophils % PT with INR INR Sodium 134 L Potassium 4.6 Chloride 98 Carbon Dioxide 28 Anion Gap 8 BUN 29 H D Creatinine 5.0 H D Creat Clearance w eGFR Random Glucose 150 H Calcium 8.5 Phosphorus 5.2 H D Magnesium 2.6 H Total Bilirubin AST ALT Alkaline Phosphatase Creatine Kinase Creatine Kinase Index CK-MB (CK-2) Troponin I 0.07 H B-Natriuretic Peptide Total Protein Albumin Lipase Active Medications Generic Name Dose Route Start Last Admin Trade Name Freq PRN Reason Stop Dose Admin Acetaminophen 650 mg 10/16/17 07:15 Tylenol - PO Q6H PRN FEVER OR PAIN Albuterol/Ipratropium 1 amp 10/16/17 12:00 10/16/17 13:28 Duoneb - NEB 1 amp QIDR KARINA Administration Calcium Acetate 667 mg 10/16/17 08:00 10/16/17 11:31 Phoslo - PO 667 mg TIDCM KARINA Administration Labetalol HCl 200 mg 10/16/17 06:00 10/16/17 13:04 Normodyne - PO 200 mg TID KARINA Administration Losartan Potassium 100 mg 10/16/17 10:00 10/16/17 10:06 Losartan Potassium PO 100 mg DAILY KARINA Administration Methylprednisolone Sodium Succinate 40 mg 10/16/17 11:30 10/16/17 11:31 Solu-Medrol - IVPUSH 40 mg Q8H-IV KARINA Administration Minoxidil 10 mg 10/16/17 22:00 Loniten - PO HS KARINA Nifedipine 60 mg 10/16/17 10:00 10/16/17 09:12 Procardia Xl - PO 60 mg BID KARINA Administration Assessment: 71 year old female with h/o HTN, DM, hyperlipidemia, LV diastolic dysfunction, ESRD on HD who was admitted with worsening shortness of breath x 4 days. Reports a cough productive of white sputum. Plan: 1. Acute URI - Medrol 40mg q8 x 24 hrs - Duonebs - Supplemental o2 spow >92% - Hold Abx for now, monitor wbc if worsens start and obtain cxr - Obtain urine antigens - Pulm following 2. ESRD - Renal service following for HD - HD tomorrow 3. HTN - Controlled - Continue meds listed 4. LV Diastolic Dysfunction 5. DVT - SCDs, trend platelets Visit type - Emergency Visit Emergency Visit: Yes ED Registration Date: 10/15/17 Care time: The patient presented to the Emergency Department on the above date and was hospitalized for further evaluation of their emergent condition. - New Patient This patient is new to me today: Yes Date on this admission: 10/16/17 - Critical Care Critical Care patient: No
[2017-10-16] MEDS: MINOXIDIL 10 MG TABLET PO SCH (22:06)
[2017-10-17] MEDS: methylPREDNISolone NA SUCC 40 MG/1 ML VIAL IVPUSH SCH ×4 (02:02→17:26)
[2017-10-17] MEDS: LABETALOL HCL 200 MG TABLET (FP) PO SCH ×3 (05:53→21:42)
[2017-10-17] MEDS ORDERED: HEPARIN NA (PORCINE) 5,000 UNITS/ML 1ML VIAL IVPUSH ONE (06:00)
[2017-10-17] MEDS: ALBUTEROL SO4 2.5/IPRATROPIUM 0.5 INH SOL 3 ML VIAL.NEB. NEB SCH ×3 (07:15→18:02)
[2017-10-17] MEDS: CALCIUM ACETATE 667 MG CAPSULE (FP) PO SCH ×3 (08:34→17:26)
[2017-10-17 09:06] LABS: MCH 27.5 pg (25.7-33.7); MCHC 32.4 g/dl (32.0-36.0); MEAN CELL VOLUME 84.8 fl (80-96); MEAN PLT VOLUME 10.4 fl (7.5-11.1); PLATELET COUNT 113 K/MM3 (134-434); RDW 16.9 % (11.6-15.6); WHITE BLOOD COUNT 6.7 K/mm3 (4.0-10.0)
[2017-10-17 09:36] LABS: ANION GAP 13 (8-16); CALCIUM 8.8 mg/dL (8.5-10.1); CO2 26 mmol/L (21-32); CREATININE 7.3 mg/dL (0.55-1.02); PHOSPHOROUS 6.9 mg/dL (2.5-4.9)
[2017-10-17 09:47] LABS: GLUCOSE,RANDOM 304 mg/dL (74-106)
[2017-10-17] MEDS: LOSARTAN POTASSIUM 100 MG TABLET PO SCH ×2 (10:13→12:39)
[2017-10-17] MEDS: NIFEdipine E.R 60 MG TABLET (UD) PO SCH ×3 (10:13→21:42)
[2017-10-17] MEDS: ACETAMINOPHEN 325 MG TABLET (FP) PO PRN (10:48)
--- NOTE | 2017-10-17 11:28 | PN ---
Physical Exam: SUBJECTIVE: Patient seen and examined in HD, tolerating well. She has gross body aches from coughing, overall feeling better and appears improved OBJECTIVE: Vital Signs Period Temp Pulse Resp BP Sys/Parker Pulse Ox Last 24 Hr 97.7 F-98.3 F 60-68 18-22 113-156/48-71 99 PE Gen: body aches Neuro: alert, awake, cn 2-12intact Pulm: clear anteriorly, no crackles +nc, no dyspnea CV: s1 s2 rrr no mrg Abd: s nt nd +bs Ext: LUE AVF, no le edema Laboratory Results - last 24 hr 10/16/17 10/17/17 10/17/17 08:00 08:00 08:00 WBC 6.7 RBC 3.57 L Hgb 9.8 L Hct 30.3 L MCV 84.8 MCH 27.5 MCHC 32.4 RDW 16.9 H Plt Count 113 L MPV 10.4 Sodium 133 L Potassium 5.3 H Chloride 94 L Carbon Dioxide 26 Anion Gap 13 BUN 60 H D Creatinine 7.3 H D Random Glucose 304 H* D Lactic Acid 1.3 Calcium 8.8 Phosphorus 6.9 H D Active Medications Generic Name Dose Route Start Last Admin Trade Name Freq PRN Reason Stop Dose Admin Acetaminophen 650 mg 10/16/17 07:15 10/17/17 10:48 Tylenol - PO 650 mg Q6H PRN Administration FEVER OR PAIN Albuterol/Ipratropium 1 amp 10/16/17 12:00 10/17/17 07:15 Duoneb - NEB Not Given QIDR KARINA Calcium Acetate 667 mg 10/16/17 08:00 10/17/17 08:34 Phoslo - PO 667 mg TIDCM KARINA Administration Labetalol HCl 200 mg 10/16/17 06:00 10/17/17 05:53 Normodyne - PO 200 mg TID KARINA Administration Losartan Potassium 100 mg 10/16/17 10:00 10/17/17 10:13 Losartan Potassium PO Not Given DAILY KARINA Methylprednisolone Sodium Succinate 40 mg 10/16/17 11:30 10/17/17 10:13 Solu-Medrol - IVPUSH Not Given Q8H-IV KARNIA Minoxidil 10 mg 10/16/17 22:00 10/16/17 22:06 Loniten - PO 10 mg HS KARINA Administration Nifedipine 60 mg 10/16/17 10:00 10/17/17 10:13 Procardia Xl - PO Not Given BID KARINA Microbiology 10/16/17 00:21 Blood - Peripheral Venous Blood Culture - Preliminary NO GROWTH OBTAINED AFTER 24 HOURS, INCUBATION TO CONTINUE FOR 4 DAYS. 10/16/17 00:21 Blood - Peripheral Venous Blood Culture - Preliminary NO GROWTH OBTAINED AFTER 24 HOURS, INCUBATION TO CONTINUE FOR 4 DAYS. 10/16/17 00:24 Nasopharyngeal Swab Influenza Types A,B Antigen (IFEANYI) - Final 10/16/17 00:24 Nasopharyngeal Swab - Final Assessment: 71 year old female with h/o HTN, DM, hyperlipidemia, LV diastolic dysfunction, ESRD on HD who was admitted with worsening shortness of breath x 4 days. Reports a cough productive of white sputum. Plan: 1. Acute URI - No leukocytosis, appears improved - Continue Medrol 40mg q8 through tomorrow - Duonebs - Supplemental o2 spo2 >92% - Pulm following 2. ESRD - HD today 3. HTN - Controlled - Continue meds listed 4. LV Diastolic Dysfunction 5. DVT - SCDs, platelets improved Visit type - Emergency Visit Emergency Visit: Yes ED Registration Date: 10/16/17 Care time: The patient presented to the Emergency Department on the above date and was hospitalized for further evaluation of their emergent condition. - New Patient This patient is new to me today: No - Critical Care Critical Care patient: No
[2017-10-17] MEDS ORDERED: PT OWN MED DRAWER 7, Y5N ONE ×2 (12:37→21:06)
[2017-10-17] MEDS ORDERED: INSULIN (NOVOLOG) ASPART 100 UNITS/ML 10ML VIAL ONE (16:51)
[2017-10-17] MEDS: INSULIN SLIDING SCALE (NOVOLOG) 1 VIAL SQ SCH ×2 (16:54→21:39)
--- NOTE | 2017-10-17 18:01 | PN ---
Progress Note (short form) - Note Progress Note: Renal Follow up for ESRD Pt seen and examined at the bedside awake and alert continues to have cough but no sob no fever, chills s/p dialysis earlier this am w/o complications Vital Signs Temperature 98.6 F 10/17/17 17:47 Pulse Rate 70 10/17/17 17:47 Respiratory Rate 20 10/17/17 17:47 Blood Pressure 146/66 10/17/17 17:47 O2 Sat by Pulse Oximetry (%) 96 10/17/17 08:00 Intake & Output 10/14/17 10/15/17 10/16/17 10/17/17 23:59 23:59 23:59 23:59 Intake Total 680 350 Balance 680 350 Weight 65.913 kg 65.913 kg 66.366 kg NAD awake and alert RRR CTA No Le edema CBC, BMP 10/17/17 08:00 10/17/17 08:00 Current Medications Acetaminophen (Tylenol -) 650 mg PO Q6H PRN PRN Reason: FEVER OR PAIN Last Admin: 10/17/17 10:48 Dose: 650 mg Albuterol/Ipratropium (Duoneb -) 1 amp NEB QIDR [facility] Last Admin: 10/17/17 11:30 Dose: Not Given Calcium Acetate (Phoslo -) 667 mg PO TIDCM [facility] Last Admin: 10/17/17 17:26 Dose: 667 mg Insulin Aspart (Novolog Vial Sliding Scale -) 1 vial SQ ACHS KARINA PRN Reason: Protocol Last Admin: 10/17/17 16:54 Dose: 8 units Labetalol HCl (Normodyne -) 200 mg PO TID [facility] Last Admin: 10/17/17 15:04 Dose: 200 mg Losartan Potassium (Losartan Potassium) 100 mg PO DAILY [facility] Last Admin: 10/17/17 12:39 Dose: 100 mg Methylprednisolone Sodium Succinate (Solu-Medrol -) 40 mg IVPUSH Q8H-IV KARINA Last Admin: 10/17/17 17:26 Dose: 40 mg Minoxidil (Loniten -) 10 mg PO HS [facility] Last Admin: 10/16/17 22:06 Dose: 10 mg Nifedipine (Procardia Xl -) 60 mg PO BID KARINA Last Admin: 10/17/17 12:40 Dose: 60 mg 71 year old woman with PMhx of ESRD on HD (MWF), Difficult to control hypertension, Renal Osteodystrophy who presented to the ED with complaints of cough, subjective fever, muscle aches and admitted for r/o PNA/Influenza. #SOB/Cough/Muscle Aches/Subjective Fever continue steroid taper no Abx influenza negative #ESRD on HD tolerated Hd well today continue renal diet and fluid restriction #Hypertension continue Losartan, Minoxidil, Nifedipine goal BP < 140/90 d/c planning as per primary Alf Mcmahan DO
[2017-10-17] MEDS: MINOXIDIL 10 MG TABLET PO SCH (22:40)
[2017-10-18] MEDS: ALBUTEROL SO4 2.5/IPRATROPIUM 0.5 INH SOL 3 ML VIAL.NEB. NEB SCH ×5 (00:10→23:38)
[2017-10-18] MEDS: methylPREDNISolone NA SUCC 40 MG/1 ML VIAL IVPUSH SCH ×4 (02:55→21:56)
[2017-10-18] MEDS: LABETALOL HCL 200 MG TABLET (FP) PO SCH ×3 (05:45→21:58)
[2017-10-18] MEDS: INSULIN SLIDING SCALE (NOVOLOG) 1 VIAL SQ SCH ×4 (06:02→22:02)
[2017-10-18] MEDS: CALCIUM ACETATE 667 MG CAPSULE (FP) PO SCH ×3 (08:29→17:17)
[2017-10-18 08:38] LABS: BASO % 0.1 % (0-2.0); MCH 27.2 pg (25.7-33.7); MCHC 31.9 g/dl (32.0-36.0); MEAN CELL VOLUME 85.1 fl (80-96); MEAN PLT VOLUME 10.1 fl (7.5-11.1); NEUT % 86.9 % (42.8-82.8); PLATELET COUNT 127 K/MM3 (134-434); RDW 16.8 % (11.6-15.6); WHITE BLOOD COUNT 7.3 K/mm3 (4.0-10.0)
[2017-10-18] MEDS ORDERED: PT OWN MED DRAWER 7, Y5N ONE ×3 (09:19→22:11)
[2017-10-18] MEDS: NIFEdipine E.R 60 MG TABLET (UD) PO SCH ×2 (09:26→21:57)
[2017-10-18] MEDS: LOSARTAN POTASSIUM 100 MG TABLET PO SCH (09:26)
--- NOTE | 2017-10-18 09:32 | PN ---
Progress Note (short form) - Note Progress Note: PULMONARY Breathing better but still complaining of cough and wheezing. No fevers or chills. Last Vital Signs Temp Pulse Resp BP Pulse Ox 98.6 F 68 20 125/51 94 L 10/18/17 09:17 10/18/17 09:17 10/18/17 09:17 10/18/17 09:17 10/17/17 21:00 Gen: NAD at rest Heart: RRR Lung: scattered rhonchi, wheezes Abd: soft, nontender Ext: no edema CBC, BMP 10/18/17 06:00 Active Medications Acetaminophen (Tylenol -) 650 mg PO Q6H PRN PRN Reason: FEVER OR PAIN Last Admin: 10/17/17 10:48 Dose: 650 mg Albuterol/Ipratropium (Duoneb -) 1 amp NEB QIDR [facility] Last Admin: 10/18/17 07:09 Dose: 1 amp Calcium Acetate (Phoslo -) 667 mg PO TIDCM [facility] Last Admin: 10/18/17 08:29 Dose: 667 mg Insulin Aspart (Novolog Vial Sliding Scale -) 1 vial SQ ACHS [facility] PRN Reason: Protocol Last Admin: 10/18/17 06:02 Dose: 4 units Labetalol HCl (Normodyne -) 200 mg PO TID [facility] Last Admin: 10/18/17 05:45 Dose: 200 mg Losartan Potassium (Losartan Potassium) 100 mg PO DAILY [facility] Last Admin: 10/18/17 09:26 Dose: 100 mg Methylprednisolone Sodium Succinate (Solu-Medrol -) 40 mg IVPUSH Q8H-IV [facility] Last Admin: 10/18/17 09:26 Dose: 40 mg Minoxidil (Loniten -) 10 mg PO HS [facility] Last Admin: 10/17/17 22:40 Dose: 10 mg Nifedipine (Procardia Xl -) 60 mg PO BID [facility] Last Admin: 10/18/17 09:26 Dose: 60 mg A/P Upper Respiratory Tract Infection Acute Bronchospasm LV Diastolic Dysfunction Pulmonary HTN ESRD on HD HTN DM - will decrease medrol to q12h - inhaled bronchodilators standing and PRN - monitor fever curve, WBC trend - HD per renal - DVT prophylaxis Problem List - Problems (1) URI (upper respiratory infection) Code(s): J06.9 - ACUTE UPPER RESPIRATORY INFECTION, UNSPECIFIED (2) Acute bronchospasm Code(s): J98.01 - ACUTE BRONCHOSPASM (3) Diabetes Code(s): E11.9 - TYPE 2 DIABETES MELLITUS WITHOUT COMPLICATIONS (4) ESRD (end stage renal disease) on dialysis Code(s): N18.6 - END STAGE RENAL DISEASE; Z99.2 - DEPENDENCE ON RENAL DIALYSIS (5) Hyperlipidemia Code(s): E78.5 - HYPERLIPIDEMIA, UNSPECIFIED Qualifiers: Hyperlipidemia type: pure hypercholesterolemia (6) Hypertension Code(s): I10 - ESSENTIAL (PRIMARY) HYPERTENSION Qualifiers: Hypertension type: essential hypertension Qualified Code(s): I10 - Essential (primary) hypertension
[2017-10-18 09:37] LABS: ANION GAP 14 (8-16); CALCIUM 9.4 mg/dL (8.5-10.1); CO2 27 mmol/L (21-32); CREATININE 5.5 mg/dL (0.55-1.02); GLUCOSE,RANDOM 173 mg/dL (74-106)
[2017-10-18] MEDS ORDERED: INSULIN (NOVOLOG) ASPART 100 UNITS/ML 10ML VIAL ONE (11:43)
--- NOTE | 2017-10-18 11:55 | PN ---
Physical Exam: SUBJECTIVE: Patient seen and examined. She still has a cough, and using supplemental o2. spo2 94% RA OBJECTIVE: Vital Signs Period Temp Pulse Resp BP Sys/Parker Pulse Ox Last 24 Hr 98.4 F-99.3 F 65-74 16-20 125-149/50-66 94 PE Neuro: alert, awake, cn 2-12intact Pulm: course basilar bs, + cough no wheezing, + nc CV: s1 s2 rrr no mrg Abd: s nt nd +bs Ext: LUE AVF, no le edema Laboratory Results - last 24 hr 10/18/17 10/18/17 10/18/17 05:43 06:00 06:00 WBC 7.3 RBC 3.65 Hgb 9.9 L Hct 31.1 L MCV 85.1 MCH 27.2 MCHC 31.9 L RDW 16.8 H Plt Count 127 L MPV 10.1 Neutrophils % 86.9 H D Lymphocytes % 9.4 D Monocytes % 3.6 L Eosinophils % 0.0 D Basophils % 0.1 Sodium 139 Potassium 4.5 Chloride 98 Carbon Dioxide 27 Anion Gap 14 BUN 52 H Creatinine 5.5 H D POC Glucometer 234 Random Glucose 173 H D Calcium 9.4 Hepatitis C Antibody Active Medications Generic Name Dose Route Start Last Admin Trade Name Freq PRN Reason Stop Dose Admin Acetaminophen 650 mg 10/16/17 07:15 10/17/17 10:48 Tylenol - PO 650 mg Q6H PRN Administration FEVER OR PAIN Albuterol/Ipratropium 1 amp 10/16/17 12:00 10/18/17 07:09 Duoneb - NEB 1 amp QIDR KARINA Administration Calcium Acetate 667 mg 10/16/17 08:00 10/18/17 08:29 Phoslo - PO 667 mg TIDCM KARINA Administration Insulin Aspart 1 vial 10/17/17 16:30 10/18/17 06:02 Novolog Vial Sliding Scale - SQ 4 units ACHS KARINA Administration Protocol Labetalol HCl 200 mg 10/16/17 06:00 10/18/17 05:45 Normodyne - PO 200 mg TID KARINA Administration Losartan Potassium 100 mg 10/16/17 10:00 10/18/17 09:26 Losartan Potassium PO 100 mg DAILY KARINA Administration Methylprednisolone Sodium Succinate 40 mg 10/18/17 10:00 Solu-Medrol - IVPUSH Q12H KARINA Minoxidil 10 mg 10/16/17 22:00 10/17/17 22:40 Loniten - PO 10 mg HS KARINA Administration Nifedipine 60 mg 10/16/17 10:00 10/18/17 09:26 Procardia Xl - PO 60 mg BID KARINA Administration Assessment: 71 year old female with h/o HTN, DM, hyperlipidemia, LV diastolic dysfunction, ESRD on HD who was admitted with worsening shortness of breath x 4 days. Reports a cough productive of white sputum. Plan: 1. Acute URI - Taper Medrol 40mg q12 - Duonebs qid - Pre and post ordered - Pulm following 2. ESRD - HD tomorrow per Renal service - Phoslo 667mg TID 3. HTN - Controlled - Continue meds listed 4. LV Diastolic Dysfunction 5. DVT - SCDs, platelets improving Visit type - Emergency Visit Emergency Visit: Yes ED Registration Date: 10/16/17 Care time: The patient presented to the Emergency Department on the above date and was hospitalized for further evaluation of their emergent condition. - New Patient This patient is new to me today: No - Critical Care Critical Care patient: No
[2017-10-18] MEDS ORDERED: guaiFENesin 200 MG/10 ML 10 ML UNIT-DOSE CUPS PO PRN (12:15)
[2017-10-18] MEDS: guaiFENesin/D-METHORPHAN HB 1 EACH TAB.ER.12H PO SCH ×2 (14:05→22:13)
--- NOTE | 2017-10-18 14:39 | PN ---
Progress Note (short form) - Note Progress Note: Renal Follow up for ESRD Pt seen and examined at the bedside continues to have cough and body aches no fevers Vital Signs Temperature 98.3 F 10/18/17 14:17 Pulse Rate 83 10/18/17 14:17 Respiratory Rate 16 10/18/17 14:17 Blood Pressure 129/98 10/18/17 14:17 O2 Sat by Pulse Oximetry (%) 94 L 10/18/17 09:00 Intake & Output 10/15/17 10/16/17 10/17/17 10/18/17 23:59 23:59 23:59 23:59 Intake Total 680 350 200 Balance 680 350 200 Weight 65.913 kg 65.913 kg 66.366 kg 66.366 kg NAD awake and alert RRR CTA No Le edema CBC, BMP 10/18/17 06:00 10/18/17 06:00 Current Medications Acetaminophen (Tylenol -) 650 mg PO Q6H PRN PRN Reason: FEVER OR PAIN Last Admin: 10/17/17 10:48 Dose: 650 mg Albuterol/Ipratropium (Duoneb -) 1 amp NEB QIDR [facility] Last Admin: 10/18/17 07:09 Dose: 1 amp Calcium Acetate (Phoslo -) 667 mg PO TIDCM [facility] Last Admin: 10/18/17 12:04 Dose: 667 mg Guaifenesin (Robitussin -) 10 ml PO Q6H PRN PRN Reason: COUGH Stop: 10/19/17 12:14 Guaifenesin (Mucinex Dm -) 1 tablet PO BID [facility] Last Admin: 10/18/17 14:05 Dose: 1 tablet Insulin Aspart (Novolog Vial Sliding Scale -) 1 vial SQ ACHS [facility] PRN Reason: Protocol Last Admin: 10/18/17 12:01 Dose: 6 units Labetalol HCl (Normodyne -) 200 mg PO TID [facility] Last Admin: 10/18/17 14:06 Dose: 200 mg Losartan Potassium (Losartan Potassium) 100 mg PO DAILY [facility] Last Admin: 10/18/17 09:26 Dose: 100 mg Methylprednisolone Sodium Succinate (Solu-Medrol -) 40 mg IVPUSH Q12H [facility] Last Admin: 10/18/17 12:00 Dose: Not Given Minoxidil (Loniten -) 10 mg PO HS [facility] Last Admin: 10/17/17 22:40 Dose: 10 mg Nifedipine (Procardia Xl -) 60 mg PO BID KARINA Last Admin: 10/18/17 09:26 Dose: 60 mg 71 year old woman with PMhx of ESRD on HD (MWF), Difficult to control hypertension, Renal Osteodystrophy who presented to the ED with complaints of cough, subjective fever, muscle aches and admitted for r/o PNA/Influenza. #SOB/Cough/Muscle Aches/Subjective Fever supportive care steroid taper #ESRD on HD for dialysis tomorrow #Hypertension continue Losartan, Minoxidil, Nifedipine goal BP < 140/90 d/c planning as per primary Alf Mcmahan DO
[2017-10-18] MEDS: MINOXIDIL 10 MG TABLET PO SCH (22:14)
[2017-10-19] MEDS: LABETALOL HCL 200 MG TABLET (FP) PO SCH ×3 (05:39→21:54)
[2017-10-19] MEDS: INSULIN SLIDING SCALE (NOVOLOG) 1 VIAL SQ SCH ×4 (06:03→21:54)
[2017-10-19] MEDS: ALBUTEROL SO4 2.5/IPRATROPIUM 0.5 INH SOL 3 ML VIAL.NEB. NEB SCH ×3 (06:25→14:45)
[2017-10-19] MEDS: CALCIUM ACETATE 667 MG CAPSULE (FP) PO SCH ×3 (08:38→17:13)
[2017-10-19] MEDS ORDERED: predniSONE 20 MG TABLET (UD) PO ONE (10:00)
[2017-10-19 10:38] LABS: ANION GAP 16 (8-16); CALCIUM 8.7 mg/dL (8.5-10.1); CO2 25 mmol/L (21-32); GLUCOSE,RANDOM 188 mg/dL (74-106)
[2017-10-19 11:22] LABS: CREATININE 7.9 mg/dL (0.55-1.02)
--- NOTE | 2017-10-19 13:35 | PN ---
Progress Note (short form) - Note Progress Note: Renal Follow up for ESRD Pt seen and examined during dialysis BP stable Goal UF 2.5L AVF with good flow pt without complaints Vital Signs Temperature 98.2 F 10/19/17 09:28 Pulse Rate 77 10/19/17 13:05 Respiratory Rate 18 10/19/17 13:05 Blood Pressure 116/50 10/19/17 13:05 O2 Sat by Pulse Oximetry (%) 97 10/18/17 21:00 Intake & Output 10/16/17 10/17/17 10/18/17 10/19/17 23:59 23:59 23:59 23:59 Intake Total 680 350 200 Balance 680 350 200 Weight 65.913 kg 66.366 kg 66.366 kg 66.877 kg NAD awake and alert RRR CTA No Le edema CBC, BMP 10/18/17 06:00 Current Medications Acetaminophen (Tylenol -) 650 mg PO Q6H PRN PRN Reason: FEVER OR PAIN Last Admin: 10/17/17 10:48 Dose: 650 mg Albuterol/Ipratropium (Duoneb -) 1 amp NEB QIDR [facility] Last Admin: 10/19/17 11:05 Dose: Not Given Calcium Acetate (Phoslo -) 667 mg PO TIDCM [facility] Last Admin: 10/19/17 08:38 Dose: 667 mg Guaifenesin (Mucinex Dm -) 1 tablet PO BID [facility] Last Admin: 10/18/17 22:13 Dose: 1 tablet Insulin Aspart (Novolog Vial Sliding Scale -) 1 vial SQ ACHS [facility] PRN Reason: Protocol Last Admin: 10/19/17 06:03 Dose: 6 units Labetalol HCl (Normodyne -) 200 mg PO TID [facility] Last Admin: 10/19/17 05:39 Dose: 200 mg Losartan Potassium (Losartan Potassium) 100 mg PO DAILY [facility] Last Admin: 10/18/17 09:26 Dose: 100 mg Minoxidil (Loniten -) 10 mg PO HS [facility] Last Admin: 10/18/17 22:14 Dose: 10 mg Nifedipine (Procardia Xl -) 60 mg PO BID [facility] Last Admin: 10/18/17 21:57 Dose: 60 mg 71 year old woman with PMhx of ESRD on HD (MWF), Difficult to control hypertension, Renal Osteodystrophy who presented to the ED with complaints of cough, subjective fever, muscle aches and admitted for r/o PNA/Influenza. #SOB/Cough/Muscle Aches/Subjective Fever supportive care steroid taper #ESRD on HD tolerating dialysis well today UF is 2.5L to resume dialysis as outpatient on discharge #Hypertension continue Losartan, Minoxidil, Nifedipine goal BP < 140/90 d/c planning as per primary Alf Mcmahan DO
[2017-10-19] MEDS ORDERED: PT OWN MED DRAWER 7, Y5N ONE ×2 (13:40→20:57)
[2017-10-19] MEDS: LOSARTAN POTASSIUM 100 MG TABLET PO SCH (13:49)
[2017-10-19] MEDS: NIFEdipine E.R 60 MG TABLET (UD) PO SCH ×2 (13:50→21:50)
[2017-10-19] MEDS: guaiFENesin/D-METHORPHAN HB 1 EACH TAB.ER.12H PO SCH ×2 (13:50→21:52)
[2017-10-19 14:07] LABS: CREATININE 2.3 mg/dL (0.55-1.02)
--- NOTE | 2017-10-19 14:21 | PN ---
Physical Exam: SUBJECTIVE: Patient seen and examined. Pt reports cough, SOB, and wheezing somewhat improved from yesterday. OBJECTIVE: Vital Signs Period Temp Pulse Resp BP Sys/Parker Pulse Ox Last 24 Hr 98.1 F-98.5 F 63-83 16-20 105-140/45-98 97 GENERAL: The patient is awake, alert, and fully oriented, in no acute distress. LUNGS: diffuse rhonchi, basilar rales HEART: Regular rate and rhythm, S1, S2 without murmur, rub or gallop. ABDOMEN: Soft, nontender, nondistended, normoactive bowel sounds, no guarding, no rebound, no hepatosplenomegaly, no masses. EXTREMITIES: 2+ pulses, warm, well-perfused, no edema. NEUROLOGICAL: Cranial nerves II through XII grossly intact. Normal speech, gait not observed. Laboratory Results - last 24 hr 10/17/17 10/18/17 10/18/17 08:00 17:12 22:01 Sodium Potassium Chloride Carbon Dioxide Anion Gap BUN Creatinine POC Glucometer 253 218 Random Glucose Calcium Hepatitis C Antibody <0.1 10/19/17 10/19/17 05:37 09:30 Sodium 134 L Potassium 5.0 Chloride 93 L Carbon Dioxide 25 Anion Gap 16 BUN 97 H D Creatinine 7.9 H* D POC Glucometer 266 Random Glucose 188 H Calcium 8.7 Hepatitis C Antibody Active Medications Generic Name Dose Route Start Last Admin Trade Name Freq PRN Reason Stop Dose Admin Acetaminophen 650 mg 10/16/17 07:15 10/17/17 10:48 Tylenol - PO 650 mg Q6H PRN Administration FEVER OR PAIN Albuterol/Ipratropium 1 amp 10/16/17 12:00 10/19/17 11:05 Duoneb - NEB Not Given QIDR KARINA Calcium Acetate 667 mg 10/16/17 08:00 10/19/17 13:51 Phoslo - PO 667 mg TIDCM KARINA Administration Guaifenesin 1 tablet 10/18/17 12:15 10/19/17 13:50 Mucinex Dm - PO 1 tablet BID KARINA Administration Insulin Aspart 1 vial 10/17/17 16:30 10/19/17 13:38 Novolog Vial Sliding Scale - SQ Not Given ACHS KARINA Protocol Labetalol HCl 200 mg 10/16/17 06:00 10/19/17 13:51 Normodyne - PO 200 mg TID KARINA Administration Losartan Potassium 100 mg 10/16/17 10:00 10/19/17 13:49 Losartan Potassium PO 100 mg DAILY KARINA Administration Minoxidil 10 mg 10/16/17 22:00 10/18/17 22:14 Loniten - PO 10 mg HS KARINA Administration Nifedipine 60 mg 10/16/17 10:00 10/19/17 13:50 Procardia Xl - PO 60 mg BID KARINA Administration ASSESSMENT/PLAN: 71F admitted for URI and acute bronchospasm. #URI and acute bronchospasm -BD, standing and PRN -O2 via NC -steroids -guaifenesin Rest of care per medical team. Plan to be discussed with attending, Dr. Dacosta. -Ba Jeffries MD PGY1 Pulmonology Team Visit type - Emergency Visit Emergency Visit: Yes ED Registration Date: 10/16/17 Care time: The patient presented to the Emergency Department on the above date and was hospitalized for further evaluation of their emergent condition. - New Patient This patient is new to me today: Yes Date on this admission: 10/19/17 - Critical Care Critical Care patient: No
--- NOTE | 2017-10-19 15:25 | PN ---
Teaching Attending Note Name of Resident: Ba Jeffries ATTENDING PHYSICIAN STATEMENT I saw and evaluated the patient. I reviewed the resident's note and discussed the case with the resident. I agree with the resident's findings and plan as documented. SUBJECTIVE:COUGH/SOB OBJECTIVE:DIFFUSE RHONCHI ASSESSMENT AND PLAN: CRF ON HD URI ACUTE BRONCHOSPASM LVDD PUL HTN HTN/DM STEROIDS/DUONEB O2 WILL FOLLOW Niles HIGUERA MD
[2017-10-19] MEDS ORDERED: guaiFENesin 200 MG/10 ML 10 ML UNIT-DOSE CUPS PO PRN (15:59)
--- NOTE | 2017-10-19 16:00 | PN ---
Physical Exam: SUBJECTIVE: Patient seen and examined. She still has cough, over all improving OBJECTIVE: Vital Signs Period Temp Pulse Resp BP Sys/Parker Pulse Ox Last 24 Hr 98.1 F-98.5 F 63-82 16-20 105-140/45-64 94-97 PE Neuro: alert, awake, cn 2-12intact Pulm: course basilar bs- improving + cough +nc CV: s1 s2 rrr no mrg Abd: s nt nd +bs Ext: LUE AVF, no le edema Laboratory Results - last 24 hr 10/17/17 10/18/17 10/18/17 08:00 17:12 22:01 Sodium Potassium Chloride Carbon Dioxide Anion Gap BUN Creatinine POC Glucometer 253 218 Random Glucose Calcium Hepatitis C Antibody <0.1 10/19/17 10/19/17 10/19/17 05:37 09:30 13:00 Sodium 134 L Potassium 5.0 Chloride 93 L Carbon Dioxide 25 Anion Gap 16 BUN 97 H D 21 H D Creatinine 7.9 H* D 2.3 H D POC Glucometer 266 Random Glucose 188 H Calcium 8.7 Hepatitis C Antibody Active Medications Generic Name Dose Route Start Last Admin Trade Name Freq PRN Reason Stop Dose Admin Acetaminophen 650 mg 10/16/17 07:15 10/17/17 10:48 Tylenol - PO 650 mg Q6H PRN Administration FEVER OR PAIN Albuterol/Ipratropium 1 amp 10/16/17 12:00 10/19/17 11:05 Duoneb - NEB Not Given QIDR KARINA Calcium Acetate 667 mg 10/16/17 08:00 10/19/17 13:51 Phoslo - PO 667 mg TIDCM KARINA Administration Guaifenesin 1 tablet 10/18/17 12:15 10/19/17 13:50 Mucinex Dm - PO 1 tablet BID KARINA Administration Insulin Aspart 1 vial 10/17/17 16:30 10/19/17 13:38 Novolog Vial Sliding Scale - SQ Not Given ACHS [facility] Protocol Labetalol HCl 200 mg 10/16/17 06:00 10/19/17 13:51 Normodyne - PO 200 mg TID KARINA Administration Losartan Potassium 100 mg 10/16/17 10:00 10/19/17 13:49 Losartan Potassium PO 100 mg DAILY KARINA Administration Minoxidil 10 mg 10/16/17 22:00 10/18/17 22:14 Loniten - PO 10 mg HS KARINA Administration Nifedipine 60 mg 10/16/17 10:00 10/19/17 13:50 Procardia Xl - PO 60 mg BID KARINA Administration Assessment: 71 year old female with h/o HTN, DM, hyperlipidemia, LV diastolic dysfunction, ESRD on HD who was admitted with worsening shortness of breath x 4 days. Reports a cough productive of white sputum. Plan: 1. Acute URI - Requiring home o2, insurance does not cover - Restart medrol q12 today, start daily tomorrow, transition to PO on discharge - Repeat pre and post daily to ascertain when home o2 is no longer a requirement - Mucinex 1 BID - Robitussin prn 2. Acute hypoxia - Requiring supplemental o2 3. ESRD - HD MWF - Tolerated today, HD per renal - Phoslo 667mg TID 4. HTN - Controlled - Continue meds listed 5. LV Diastolic Dysfunction 6. DVT - SCDs, platelets improving Dispo: - When no longer in need of home o2, can dc home w po steroids Visit type - Emergency Visit Emergency Visit: Yes ED Registration Date: 10/16/17 Care time: The patient presented to the Emergency Department on the above date and was hospitalized for further evaluation of their emergent condition. - New Patient This patient is new to me today: No - Critical Care Critical Care patient: No
[2017-10-19] MEDS: MINOXIDIL 2.5 MG TABLET PO SCH (21:53)
[2017-10-19] MEDS ORDERED: methylPREDNISolone NA SUCC 40 MG/1 ML VIAL IVPUSH ONE (22:00)
[2017-10-20] MEDS ORDERED: INSULIN (NOVOLOG) ASPART 100 UNITS/ML 10ML VIAL ONE (05:03)
[2017-10-20] MEDS: LABETALOL HCL 200 MG TABLET (FP) PO SCH ×3 (06:10→22:05)
[2017-10-20] MEDS: INSULIN SLIDING SCALE (NOVOLOG) 1 VIAL SQ SCH ×4 (06:12→22:05)
[2017-10-20] MEDS: ALBUTEROL SO4 2.5/IPRATROPIUM 0.5 INH SOL 3 ML VIAL.NEB. NEB SCH ×4 (07:04→18:29)
[2017-10-20] MEDS: CALCIUM ACETATE 667 MG CAPSULE (FP) PO SCH ×3 (08:35→18:06)
[2017-10-20] MEDS ORDERED: PT OWN MED DRAWER 7, Y5N ONE (09:38)
[2017-10-20] MEDS: methylPREDNISolone NA SUCC 40 MG/1 ML VIAL IVPUSH SCH (09:40)
[2017-10-20] MEDS: NIFEdipine E.R 60 MG TABLET (UD) PO SCH ×2 (09:40→22:05)
[2017-10-20] MEDS: guaiFENesin/D-METHORPHAN HB 1 EACH TAB.ER.12H PO SCH ×2 (09:41→22:05)
[2017-10-20] MEDS: LOSARTAN POTASSIUM 100 MG TABLET PO SCH (09:42)
--- NOTE | 2017-10-20 09:58 | PN ---
Progress Note (short form) - Note Progress Note: Renal Follow up for ESRD Pt seen and examined at the bedside awake and alert continue to have cough but improving no CP today Vital Signs Temperature 98.8 F 10/20/17 05:46 Pulse Rate 69 10/20/17 05:46 Respiratory Rate 18 10/20/17 05:46 Blood Pressure 110/50 10/20/17 05:46 O2 Sat by Pulse Oximetry (%) 94 L 10/19/17 21:00 Intake & Output 10/17/17 10/18/17 10/19/17 10/20/17 23:59 23:59 23:59 23:59 Intake Total 350 200 350 Balance 350 200 350 Weight 66.366 kg 66.366 kg 66.877 kg 66.791 kg NAD awake and alert RRR CTA No Le edema CBC, BMP 10/18/17 06:00 10/19/17 13:00 Current Medications Acetaminophen (Tylenol -) 650 mg PO Q6H PRN PRN Reason: FEVER OR PAIN Last Admin: 10/17/17 10:48 Dose: 650 mg Albuterol/Ipratropium (Duoneb -) 1 amp NEB QIDR [facility] Last Admin: 10/20/17 07:04 Dose: 1 amp Calcium Acetate (Phoslo -) 667 mg PO TIDCM [facility] Last Admin: 10/20/17 08:35 Dose: 667 mg Guaifenesin (Mucinex Dm -) 1 tablet PO BID [facility] Last Admin: 10/20/17 09:41 Dose: 1 tablet Guaifenesin (Robitussin -) 10 ml PO Q6H PRN PRN Reason: COUGH Insulin Aspart (Novolog Vial Sliding Scale -) 1 vial SQ ACHS [facility] PRN Reason: Protocol Last Admin: 10/20/17 06:12 Dose: 4 units Labetalol HCl (Normodyne -) 200 mg PO TID [facility] Last Admin: 10/20/17 06:10 Dose: 200 mg Losartan Potassium (Losartan Potassium) 100 mg PO DAILY [facility] Last Admin: 10/20/17 09:42 Dose: 100 mg Methylprednisolone Sodium Succinate (Solu-Medrol -) 40 mg IVPUSH DAILY [facility] Last Admin: 10/20/17 09:40 Dose: 40 mg Minoxidil (Lonitin -) 10 mg PO HS [facility] Last Admin: 12/15/17 21:53 Dose: 10 mg Nifedipine (Procardia Xl -) 60 mg PO BID [facility] Last Admin: 10/20/17 09:40 Dose: 60 mg 71 year old woman with PMhx of ESRD on HD (MWF), Difficult to control hypertension, Renal Osteodystrophy who presented to the ED with complaints of cough, subjective fever, muscle aches and admitted for r/o PNA/Influenza. 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
--- NOTE | 2017-10-20 12:21 | PN ---
Physical Exam: SUBJECTIVE: Patient seen and examined at the bedside. She reports some shortness of breath with ambulation. States her appetite is poor. OBJECTIVE: at rest, oxygen sats are between 89-93% Will need daily pre and post to evaluate for improvement Vital Signs Period Temp Pulse Resp BP Sys/Parker Pulse Ox Last 24 Hr 98.3 F-99.4 F 69-82 16-20 105-157/46-60 94-94 GENERAL: The patient is awake, alert, and fully oriented, in no acute distress. HEAD: Normal with no signs of trauma. EYES: PERRL, extraocular movements intact, sclera anicteric, conjunctiva clear. No ptosis. ENT: Ears normal, nares patent, oropharynx clear without exudates, moist mucous membranes. NECK: Trachea midline, full range of motion, supple. LUNGS: Breath sounds equal but diminished bilaterally HEART: Regular rate and rhythm, S1, S2 without murmur, rub or gallop. ABDOMEN: Soft, nontender, nondistended, normoactive bowel sounds, no guarding, no rebound, no hepatosplenomegaly, no masses. EXTREMITIES: 2+ pulses, warm, well-perfused, no edema. NEUROLOGICAL: Cranial nerves II through XII grossly intact. Normal speech, gait not observed. PSYCH: Normal mood, normal affect. SKIN: Warm, dry, normal turgor, no rashes or lesions noted Laboratory Results - last 24 hr 10/17/17 10/19/17 10/19/17 08:00 13:00 17:08 BUN 21 H D Creatinine 2.3 H D POC Glucometer 226 Hep A IgM Ab Confirm Negative Hepatitis A Ab Total Positive H Hep Bs Antigen Negative Hep Bs Antibody Non reactive Hep B Core Total Ab Negative 10/19/17 10/20/17 21:49 06:10 BUN Creatinine POC Glucometer 302 238 Hep A IgM Ab Confirm Hepatitis A Ab Total Hep Bs Antigen Hep Bs Antibody Hep B Core Total Ab Active Medications Generic Name Dose Route Start Last Admin Trade Name Freq PRN Reason Stop Dose Admin Acetaminophen 650 mg 10/16/17 07:15 10/17/17 10:48 Tylenol - PO 650 mg Q6H PRN Administration FEVER OR PAIN Albuterol/Ipratropium 1 amp 10/16/17 12:00 10/20/17 11:18 Duoneb - NEB 1 amp QIDR KARINA Administration Calcium Acetate 667 mg 12/12/17 08:00 10/20/17 08:35 Phoslo - PO 667 mg TIDCM KARINA Administration Guaifenesin 1 tablet 10/18/17 12:15 10/20/17 09:41 Mucinex Dm - PO 1 tablet BID KARINA Administration Guaifenesin 10 ml 10/19/17 15:59 Robitussin - PO Q6H PRN COUGH Insulin Aspart 1 vial 10/17/17 16:30 10/20/17 06:12 Novolog Vial Sliding Scale - SQ 4 units ACHS KARINA Administration Protocol Labetalol HCl 200 mg 10/16/17 06:00 10/20/17 06:10 Normodyne - PO 200 mg TID KARINA Administration Losartan Potassium 100 mg 10/16/17 10:00 10/20/17 09:42 Losartan Potassium PO 100 mg DAILY KARINA Administration Methylprednisolone Sodium Succinate 40 mg 10/20/17 10:00 10/20/17 09:40 Solu-Medrol - IVPUSH 40 mg DAILY KARINA Administration Minoxidil 10 mg 10/19/17 21:23 10/19/17 21:53 Lonitin - PO 10 mg HS KARINA Administration Nifedipine 60 mg 10/16/17 10:00 10/20/17 09:40 Procardia Xl - PO 60 mg BID KARINA Administration ASSESSMENT/PLAN: Patient is a 71 year old female with a past medical history of hypertension, diabetes, hyperlipidemia, LV diastolic dysfunction, and ESRD (dialysis via left upper arm). She was admitted on 10/16/2017 with a chief complaint of shortness of breath x 4 days with a productive cough. On exam, patient reports still feeing slightly short of breath at rest, but states she is improving. Her oxygen levels at rest (tested by telegraphic typewriter installer) are between 89-92%. She reports worsening shortness of breath with physical activity. She will need a daily pre and post to assess for improvement. Pulmonary: URI and acute bronchospasms with hypoxia, improving On Solumedrol 40mg daily, taper as per pulmonary Will need daily respiratory pre and post to assess for oxygen but ideally would need home oxygen based on oxygen sats but there is an insurance issue at this time on Mucinex BID Scheduled albuteral QID Supplemental oxygen @ 2 liters PRN Cardiology: Hypertension, chronic LV diastolic dysfunction, chronic On Procardia XL 60mg BID, Labetalol HCL 200mg PO TID Renal: ESRD, chronic HD MWF scheduled via LUE On Phoslo 667mg TID F.E.N. fluids: none, dialysis patient electrolytes: monitor daily nutrition: reports poor PO intake, start glucerna Prophylaxis: DVT: SCDs GI: deferred Disposition: Discharge once oxygen levels stabilize as patient does not have insurance for home oxygen and unable to afford out of pocket expense. full code.
--- NOTE | 2017-10-20 12:29 | PN ---
Progress Note (short form) - Note Progress Note: PULMOANRY VSS/AFEBRILE SPO2 91% AT REST DESATS WITH AMBULATION REQUIRES HOME O2 ANICTERIC DISTANT B/L BREATH SOUNDS S1S2 BS+ LESS EDEMA LOWER EXT LABS/MEDS/NOTES/IMAGES REVIEWED CRF ON HD URI ACUTE BRONCHOSPASM RESOLVED LVDD PUL HTN HTN/DM STEROIDS/DUONEB/ HOME O2 Niles HIGUERA MD
[2017-10-20] MEDS: MINOXIDIL 2.5 MG TABLET PO SCH (22:05)
[2017-10-21] MEDS: ALBUTEROL SO4 2.5/IPRATROPIUM 0.5 INH SOL 3 ML VIAL.NEB. NEB SCH ×5 (00:03→23:44)
[2017-10-21] MEDS: LABETALOL HCL 200 MG TABLET (FP) PO SCH ×3 (06:12→22:00)
[2017-10-21] MEDS: INSULIN SLIDING SCALE (NOVOLOG) 1 VIAL SQ SCH ×4 (06:12→20:59)
[2017-10-21 07:57] LABS: BASO % 0.2 % (0-2.0); EOS % 0.5 % (0-4.5); MCH 27.1 pg (25.7-33.7); MCHC 31.8 g/dl (32.0-36.0); MEAN CELL VOLUME 85.3 fl (80-96); MEAN PLT VOLUME 10.1 fl (7.5-11.1); NEUT % 67.4 % (42.8-82.8); PLATELET COUNT 132 K/MM3 (134-434); RDW 16.6 % (11.6-15.6); WHITE BLOOD COUNT 7.8 K/mm3 (4.0-10.0)
[2017-10-21 08:22] LABS: ALBUMIN 3.6 g/dl (3.4-5.0); ALK PHOS 79 U/L (45-117); ANION GAP 13 (8-16); BILIRUBIN,TOTAL 1.2 mg/dL (0.2-1.0); CALCIUM 7.9 mg/dL (8.5-10.1); CO2 26 mmol/L (21-32); CREATININE 7.2 mg/dL (0.55-1.02); GLUCOSE,RANDOM 209 mg/dL (74-106); SGOT/AST 10 U/L (15-37); SGPT/ALT 22 U/L (12-78); TOT PROT 6.5 g/dl (6.4-8.2)
[2017-10-21] MEDS ORDERED: PT OWN MED DRAWER 7, Y5N ONE (10:36)
[2017-10-21] MEDS: methylPREDNISolone NA SUCC 40 MG/1 ML VIAL IVPUSH SCH (10:38)
[2017-10-21] MEDS: CALCIUM ACETATE 667 MG CAPSULE (FP) PO SCH ×3 (10:39→17:01)
[2017-10-21] MEDS: NIFEdipine E.R 60 MG TABLET (UD) PO SCH ×2 (10:39→22:00)
[2017-10-21] MEDS: LOSARTAN POTASSIUM 100 MG TABLET PO SCH (10:40)
[2017-10-21] MEDS: guaiFENesin/D-METHORPHAN HB 1 EACH TAB.ER.12H PO SCH ×2 (10:40→22:08)
--- NOTE | 2017-10-21 11:55 | PN ---
Physical Exam: SUBJECTIVE: Patient seen and examined at the bedside. States she feels better today and tolerating periods of room air. Still having a non productive cough. No chest pain OBJECTIVE: Ambulated with patient (with rolling walker) from her room to the solarium and back (apx 50-75 feet)> sats @ 86% with ambulation she denied chest tightness and was able to ambulate with a steady gait. Her oxygen sats returned to the mid 90% at rest. Period Temp Pulse Resp BP Sys/Parker Pulse Ox Last 24 Hr 98.2 F-98.5 F 67-80 18-18 111-127/47-58 92-99 GENERAL: The patient is awake, alert, and fully oriented, in no acute distress. HEAD: Normal with no signs of trauma. EYES: PERRL, extraocular movements intact, sclera anicteric, conjunctiva clear. No ptosis. ENT: Ears normal, nares patent, oropharynx clear without exudates, moist mucous membranes. NECK: Trachea midline, full range of motion, supple. LUNGS: Breath sounds equal but diminished bilaterally HEART: Regular rate and rhythm, S1, S2 without murmur, rub or gallop. ABDOMEN: Soft, nontender, nondistended, normoactive bowel sounds, no guarding, no rebound, no hepatosplenomegaly, no masses. EXTREMITIES: 2+ pulses, warm, well-perfused, no edema. NEUROLOGICAL: Cranial nerves II through XII grossly intact. Normal speech, steady gait with RW PSYCH: Normal mood, normal affect. SKIN: Warm, dry, normal turgor, no rashes or lesions noted Laboratory Results - last 24 hr 10/20/17 10/20/17 10/20/17 12:12 17:52 22:04 WBC RBC Hgb Hct MCV MCH MCHC RDW Plt Count MPV Neutrophils % Lymphocytes % Monocytes % Eosinophils % Basophils % Sodium Potassium Chloride Carbon Dioxide Anion Gap BUN Creatinine Creat Clearance w eGFR POC Glucometer 235 281 192 Random Glucose Calcium Total Bilirubin AST ALT Alkaline Phosphatase Total Protein Albumin 10/21/17 10/21/17 10/21/17 06:10 07:00 07:00 WBC 7.8 RBC 3.59 L Hgb 9.7 L Hct 30.6 L MCV 85.3 MCH 27.1 MCHC 31.8 L RDW 16.6 H Plt Count 132 L MPV 10.1 Neutrophils % 67.4 D Lymphocytes % 21.2 D Monocytes % 10.7 H D Eosinophils % 0.5 D Basophils % 0.2 Sodium 136 Potassium 4.6 Chloride 97 L Carbon Dioxide 26 Anion Gap 13 BUN 78 H D Creatinine 7.2 H D Creat Clearance w eGFR 5.60 POC Glucometer 194 Random Glucose 209 H Calcium 7.9 L Total Bilirubin 1.2 H D AST 10 L D ALT 22 Alkaline Phosphatase 79 D Total Protein 6.5 Albumin 3.6 10/21/17 10:48 WBC RBC Hgb Hct MCV MCH MCHC RDW Plt Count MPV Neutrophils % Lymphocytes % Monocytes % Eosinophils % Basophils % Sodium Potassium Chloride Carbon Dioxide Anion Gap BUN Creatinine Creat Clearance w eGFR POC Glucometer 179 Random Glucose Calcium Total Bilirubin AST ALT Alkaline Phosphatase Total Protein Albumin Active Medications Generic Name Dose Route Start Last Admin Trade Name Freq PRN Reason Stop Dose Admin Acetaminophen 650 mg 10/16/17 07:15 10/17/17 10:48 Tylenol - PO 650 mg Q6H PRN Administration FEVER OR PAIN Albuterol/Ipratropium 1 amp 10/16/17 12:00 10/21/17 06:32 Duoneb - NEB 1 amp QIDR KARINA Administration Calcium Acetate 667 mg 10/16/17 08:00 10/21/17 10:39 Phoslo - PO Not Given TIDCM KARINA Guaifenesin 1 tablet 10/18/17 12:15 10/21/17 10:40 Mucinex Dm - PO 1 tablet BID KARINA Administration Guaifenesin 10 ml 10/19/17 15:59 10/21/17 10:41 Robitussin - PO 10 ml Q6H PRN Administration COUGH Insulin Aspart 1 vial 10/17/17 16:30 10/21/17 10:49 Novolog Vial Sliding Scale - SQ 2 units ACHS KARINA Administration Protocol Labetalol HCl 200 mg 10/16/17 06:00 10/21/17 06:12 Normodyne - PO 200 mg TID KARINA Administration Losartan Potassium 100 mg 10/16/17 10:00 10/21/17 10:40 Losartan Potassium PO 100 mg DAILY KARINA Administration Methylprednisolone Sodium Succinate 40 mg 10/20/17 10:00 10/21/17 10:38 Solu-Medrol - IVPUSH 40 mg DAILY KARINA Administration Minoxidil 10 mg 10/19/17 21:23 10/20/17 22:05 Lonitin - PO 10 mg HS KARINA Administration Nifedipine 60 mg 10/16/17 10:00 10/21/17 10:39 Procardia Xl - PO 60 mg BID KARINA Administration ASSESSMENT/PLAN: Patient is a 71 year old female with a past medical history of hypertension, diabetes, hyperlipidemia, LV diastolic dysfunction, and ESRD (dialysis via left upper arm). She was admitted on 10/16/2017 with a chief complaint of shortness of breath x 4 days with a productive cough. Ambulated with patient (with rolling walker) from her room to the solarium and back (apx 50-75 feet)> sats @ 86% with ambulation she denied chest tightness and was able to ambulate with a steady gait. Her oxygen sats returned to the mid 90% at rest. Pulmonary: URI and acute bronchospasms with hypoxia, improving On Solumedrol 40mg daily, taper as per pulmonary Will need daily respiratory pre and post to assess for oxygen but ideally would need home oxygen based on oxygen sats but there is an insurance issue at this time on Mucinex BID Scheduled albuteral QID Supplemental oxygen @ 2 liters PRN Cardiology: Hypertension, chronic LV diastolic dysfunction, chronic On Procardia XL 60mg BID, Labetalol HCL 200mg PO TID Renal: ESRD, chronic HD MWF scheduled via LUE On Phoslo 667mg TID F.E.N. fluids: none, dialysis patient electrolytes: monitor daily nutrition: reports poor PO intake, start glucerna Prophylaxis: DVT: SCDs GI: deferred Disposition: Discharge once oxygen levels stabilize as patient does not have insurance for home oxygen and unable to afford out of pocket expense. full code. Visit type - Emergency Visit Emergency Visit: Yes ED Registration Date: 10/16/17 Care time: The patient presented to the Emergency Department on the above date and was hospitalized for further evaluation of their emergent condition. - New Patient This patient is new to me today: No - Critical Care Critical Care patient: No - Discharge Referral Referred to [facility] Med P.C.: No
[2017-10-21] MEDS ORDERED: INSULIN (NOVOLOG) ASPART 100 UNITS/ML 10ML VIAL ONE (20:55)
[2017-10-21] MEDS: MINOXIDIL 2.5 MG TABLET PO SCH (22:08)
[2017-10-22] MEDS: ALBUTEROL SO4 2.5/IPRATROPIUM 0.5 INH SOL 3 ML VIAL.NEB. NEB SCH ×4 (05:46→23:27)
[2017-10-22] MEDS: INSULIN SLIDING SCALE (NOVOLOG) 1 VIAL SQ SCH ×4 (06:25→22:30)
[2017-10-22] MEDS: LABETALOL HCL 200 MG TABLET (FP) PO SCH ×3 (06:26→22:33)
[2017-10-22 08:51] LABS: BASO % 0.3 % (0-2.0); EOS % 0.9 % (0-4.5); MCH 27.5 pg (25.7-33.7); MCHC 32.3 g/dl (32.0-36.0); MEAN CELL VOLUME 85.3 fl (80-96); MEAN PLT VOLUME 10.1 fl (7.5-11.1); NEUT % 68.2 % (42.8-82.8); PLATELET COUNT 131 K/MM3 (134-434); RDW 16.3 % (11.6-15.6); WHITE BLOOD COUNT 8.1 K/mm3 (4.0-10.0)
[2017-10-22 09:17] LABS: ALBUMIN 3.8 g/dl (3.4-5.0); ANION GAP 19 (8-16); CALCIUM 7.6 mg/dL (8.5-10.1); CO2 22 mmol/L (21-32); GLUCOSE,RANDOM 194 mg/dL (74-106)
[2017-10-22 09:26] LABS: ALK PHOS 92 U/L (45-117); BILIRUBIN,TOTAL 1.4 mg/dL (0.2-1.0); SGOT/AST 9 U/L (15-37); SGPT/ALT 22 U/L (12-78); TOT PROT 6.7 g/dl (6.4-8.2)
[2017-10-22 09:59] LABS: CREATININE 9.5 mg/dL (0.55-1.02)
[2017-10-22] MEDS ORDERED: EPOETIN ALFA 3,000 UNIT/1 ML ML IVPUSH ONE (11:15)
[2017-10-22] MEDS: CALCIUM ACETATE 667 MG CAPSULE (FP) PO SCH ×3 (11:42→18:05)
[2017-10-22] MEDS: NIFEdipine E.R 60 MG TABLET (UD) PO SCH ×2 (11:43→22:29)
[2017-10-22] MEDS: LOSARTAN POTASSIUM 100 MG TABLET PO SCH (11:43)
[2017-10-22] MEDS: guaiFENesin/D-METHORPHAN HB 1 EACH TAB.ER.12H PO SCH ×2 (11:43→22:32)
[2017-10-22] MEDS: methylPREDNISolone NA SUCC 40 MG/1 ML VIAL IVPUSH SCH ×2 (11:43→14:57)
--- NOTE | 2017-10-22 14:47 | PN ---
Physical Exam: SUBJECTIVE: Patient seen and examined in dialysis. In no acute distress. OBJECTIVE: Vital Signs Period Temp Pulse Resp BP Sys/Parker Pulse Ox Last 24 Hr 98.0 F-98.3 F 60-75 18-20 96-125/41-57 GENERAL: The patient is awake, alert, and fully oriented, in no acute distress. HEAD: Normal with no signs of trauma. EYES: PERRL, extraocular movements intact, sclera anicteric, conjunctiva clear. No ptosis. ENT: Ears normal, nares patent, oropharynx clear without exudates, moist mucous membranes. NECK: Trachea midline, full range of motion, supple. LUNGS: Breath sounds equal but diminished bilaterally HEART: Regular rate and rhythm, S1, S2 without murmur, rub or gallop. ABDOMEN: Soft, nontender, nondistended, normoactive bowel sounds, no guarding, no rebound, no hepatosplenomegaly, no masses. EXTREMITIES: 2+ pulses, warm, well-perfused, no edema. NEUROLOGICAL: Cranial nerves II through XII grossly intact. Normal speech, steady gait with RW PSYCH: Normal mood, normal affect. SKIN: Warm, dry, normal turgor, no rashes or lesions noted Laboratory Results - last 24 hr 10/21/17 10/21/17 10/22/17 17:00 20:53 06:25 WBC RBC Hgb Hct MCV MCH MCHC RDW Plt Count MPV Neutrophils % Lymphocytes % Monocytes % Eosinophils % Basophils % Sodium Potassium Chloride Carbon Dioxide Anion Gap BUN Creatinine Creat Clearance w eGFR POC Glucometer 370 271 201 Random Glucose Calcium Total Bilirubin AST ALT Alkaline Phosphatase Total Protein Albumin 10/22/17 10/22/17 07:30 07:30 WBC 8.1 RBC 3.34 L Hgb 9.2 L Hct 28.5 L MCV 85.3 MCH 27.5 MCHC 32.3 RDW 16.3 H Plt Count 131 L MPV 10.1 Neutrophils % 68.2 Lymphocytes % 21.4 Monocytes % 9.2 Eosinophils % 0.9 Basophils % 0.3 Sodium 135 L Potassium 4.9 Chloride 94 L Carbon Dioxide 22 Anion Gap 19 H BUN 112 H* D Creatinine 9.5 H* D Creat Clearance w eGFR 4.07 POC Glucometer Random Glucose 194 H Calcium 7.6 L Total Bilirubin 1.4 H AST 9 L ALT 22 Alkaline Phosphatase 92 Total Protein 6.7 Albumin 3.8 Active Medications Generic Name Dose Route Start Last Admin Trade Name Freq PRN Reason Stop Dose Admin Acetaminophen 650 mg 10/16/17 07:15 10/17/17 10:48 Tylenol - PO 650 mg Q6H PRN Administration FEVER OR PAIN Albuterol/Ipratropium 1 amp 10/16/17 12:00 10/22/17 11:00 Duoneb - NEB Not Given QIDR [facility] Calcium Acetate 667 mg 10/16/17 08:00 10/22/17 14:17 Phoslo - PO Not Given TIDCM [facility] Guaifenesin 1 tablet 10/18/17 12:15 10/22/17 11:43 Mucinex Dm - PO Not Given BID [facility] Guaifenesin 10 ml 10/19/17 15:59 10/21/17 10:41 Robitussin - PO 10 ml Q6H PRN Administration COUGH Insulin Aspart 1 vial 10/17/17 16:30 10/22/17 11:50 Novolog Vial Sliding Scale - SQ Not Given ACHS [facility] Protocol Labetalol HCl 200 mg 10/16/17 06:00 10/22/17 06:26 Normodyne - PO Not Given TID [facility] Losartan Potassium 100 mg 10/16/17 10:00 10/22/17 11:43 Losartan Potassium PO Not Given DAILY [facility] Methylprednisolone Sodium Succinate 40 mg 10/20/17 10:00 10/22/17 11:43 Solu-Medrol - IVPUSH Not Given DAILY [facility] Minoxidil 10 mg 10/19/17 21:23 10/21/17 22:08 Lonitin - PO 10 mg HS KARINA Administration Nifedipine 60 mg 10/16/17 10:00 10/22/17 11:43 Procardia Xl - PO Not Given BID [facility] ASSESSMENT/PLAN: Patient is a 71 year old female with a past medical history of hypertension, diabetes, hyperlipidemia, LV diastolic dysfunction, and ESRD (dialysis via left upper arm). She was admitted on 10/16/2017 with a chief complaint of shortness of breath x 4 days with a productive cough. Pulmonary: URI and acute bronchospasms with hypoxia, improving On Solumedrol 40mg daily, taper as per pulmonary Will need daily respiratory pre and post to assess for oxygen but ideally would need home oxygen based on oxygen sats but there is an insurance issue at this time on Mucinex BID Scheduled albuteral QID Supplemental oxygen @ 2 liters PRN Cardiology: Hypertension, chronic LV diastolic dysfunction, chronic On Procardia XL 60mg BID, Labetalol HCL 200mg PO TID Renal: ESRD, chronic HD MWF scheduled via LUE Dialysis today On Phoslo 667mg TID F.E.N. fluids: none, dialysis patient electrolytes: monitor daily nutrition: reports poor PO intake, start glucerna Prophylaxis: DVT: SCDs GI: deferred Disposition: Discharge once oxygen levels stabilize as patient does not have insurance for home oxygen and unable to afford out of pocket expense. full code. Visit type - Emergency Visit Emergency Visit: Yes ED Registration Date: 10/16/17 Care time: The patient presented to the Emergency Department on the above date and was hospitalized for further evaluation of their emergent condition. - New Patient This patient is new to me today: No - Critical Care Critical Care patient: No - Discharge Referral Referred to [facility] Med P.C.: No
--- NOTE | 2017-10-22 15:32 | PN ---
Progress Note (short form) - Note Progress Note: Overall breathing is better. Some residual cough. No fevers or chills. Noted to desaturate to 86% post-ambulation over the weekend. Intake & Output 10/19/17 10/20/17 10/21/17 10/22/17 23:59 23:59 23:59 23:59 Intake Total 350 700 870 630 Balance 350 700 870 630 Weight 147 lb 7 oz 147 lb 4 oz 145 lb 0.9 oz 146 lb Last Vital Signs Temp Pulse Resp BP Pulse Ox 98.0 F 69 18 113/45 91 L 10/22/17 10:05 10/22/17 13:45 10/22/17 13:45 10/22/17 13:45 10/21/17 12:23 Active Medications Acetaminophen (Tylenol -) 650 mg PO Q6H PRN PRN Reason: FEVER OR PAIN Last Admin: 10/17/17 10:48 Dose: 650 mg Albuterol/Ipratropium (Duoneb -) 1 amp NEB QIDR [facility] Last Admin: 10/22/17 11:00 Dose: Not Given Calcium Acetate (Phoslo -) 667 mg PO TIDCM [facility] Last Admin: 10/22/17 14:17 Dose: Not Given Guaifenesin (Mucinex Dm -) 1 tablet PO BID [facility] Last Admin: 10/22/17 11:43 Dose: Not Given Guaifenesin (Robitussin -) 10 ml PO Q6H PRN PRN Reason: COUGH Last Admin: 10/21/17 10:41 Dose: 10 ml Insulin Aspart (Novolog Vial Sliding Scale -) 1 vial SQ ACHS [facility] PRN Reason: Protocol Last Admin: 10/22/17 11:50 Dose: Not Given Labetalol HCl (Normodyne -) 200 mg PO TID [facility] Last Admin: 10/22/17 14:50 Dose: Not Given Losartan Potassium (Losartan Potassium) 100 mg PO DAILY [facility] Last Admin: 10/22/17 11:43 Dose: Not Given Methylprednisolone Sodium Succinate (Solu-Medrol -) 40 mg IVPUSH DAILY [facility] Last Admin: 10/22/17 14:57 Dose: 40 mg Minoxidil (Lonitin -) 10 mg PO HS [facility] Last Admin: 10/21/17 22:08 Dose: 10 mg Nifedipine (Procardia Xl -) 60 mg PO BID [facility] Last Admin: 10/22/17 11:43 Dose: Not Given Gen: NAD at rest Heart: RRR Lung: scattered rhonchi, No wheezes Abd: soft, nontender Ext: no edema Laboratory Results - last 24 hr 10/21/17 10/21/17 10/22/17 17:00 20:53 06:25 WBC RBC Hgb Hct MCV MCH MCHC RDW Plt Count MPV Neutrophils % Lymphocytes % Monocytes % Eosinophils % Basophils % Sodium Potassium Chloride Carbon Dioxide Anion Gap BUN Creatinine Creat Clearance w eGFR POC Glucometer 370 271 201 Random Glucose Calcium Total Bilirubin AST ALT Alkaline Phosphatase Total Protein Albumin 10/22/17 10/22/17 07:30 07:30 WBC 8.1 RBC 3.34 L Hgb 9.2 L Hct 28.5 L MCV 85.3 MCH 27.5 MCHC 32.3 RDW 16.3 H Plt Count 131 L MPV 10.1 Neutrophils % 68.2 Lymphocytes % 21.4 Monocytes % 9.2 Eosinophils % 0.9 Basophils % 0.3 Sodium 135 L Potassium 4.9 Chloride 94 L Carbon Dioxide 22 Anion Gap 19 H BUN 112 H* D Creatinine 9.5 H* D Creat Clearance w eGFR 4.07 POC Glucometer Random Glucose 194 H Calcium 7.6 L Total Bilirubin 1.4 H AST 9 L ALT 22 Alkaline Phosphatase 92 Total Protein 6.7 Albumin 3.8 Problem List - Problems (1) URI (upper respiratory infection) Code(s): J06.9 - ACUTE UPPER RESPIRATORY INFECTION, UNSPECIFIED (2) Acute bronchospasm Code(s): J98.01 - ACUTE BRONCHOSPASM (3) Diabetes Code(s): E11.9 - TYPE 2 DIABETES MELLITUS WITHOUT COMPLICATIONS (4) ESRD (end stage renal disease) on dialysis Code(s): N18.6 - END STAGE RENAL DISEASE; Z99.2 - DEPENDENCE ON RENAL DIALYSIS (5) Hyperlipidemia Code(s): E78.5 - HYPERLIPIDEMIA, UNSPECIFIED Qualifiers: Hyperlipidemia type: pure hypercholesterolemia (6) Hypertension Code(s): I10 - ESSENTIAL (PRIMARY) HYPERTENSION Qualifiers: Hypertension type: essential hypertension Qualified Code(s): I10 - Essential (primary) hypertension A/P Upper Respiratory Tract Infection Acute Bronchospasm LV Diastolic Dysfunction Pulmonary HTN ESRD on HD HTN DM - Can change to Prednisone 40mg OD - inhaled bronchodilators standing and PRN - HD per renal - DVT prophylaxis - D/C planning - Pre and post ambulation saturation: will need Supplemental O2 for saturation less than 88%. Dr Haynes
--- NOTE | 2017-10-22 15:50 | PN ---
Progress Note (short form) - Note Progress Note: Renal Follow up for ESRD Pt seen and examined during dialysis earlier today BP stable, goal UF is 2.5L AVF with good flow cough and sob improved but still persists to some degree Vital Signs Temperature 98.0 F 10/22/17 10:05 Pulse Rate 69 10/22/17 13:45 Respiratory Rate 18 10/22/17 13:45 Blood Pressure 113/45 10/22/17 13:45 O2 Sat by Pulse Oximetry (%) 91 L 10/21/17 12:23 Intake & Output 10/19/17 10/20/17 10/21/17 10/22/17 23:59 23:59 23:59 23:59 Intake Total 350 700 870 630 Balance 350 700 870 630 Weight 66.877 kg 66.791 kg 65.796 kg 66.224 kg NAD awake and alert RRR CTA No Le edema CBC, BMP 10/22/17 07:30 10/22/17 07:30 Current Medications Acetaminophen (Tylenol -) 650 mg PO Q6H PRN PRN Reason: FEVER OR PAIN Last Admin: 10/17/17 10:48 Dose: 650 mg Albuterol/Ipratropium (Duoneb -) 1 amp NEB QIDR [facility] Last Admin: 10/22/17 11:00 Dose: Not Given Calcium Acetate (Phoslo -) 667 mg PO TIDCM [facility] Last Admin: 10/22/17 14:17 Dose: Not Given Guaifenesin (Mucinex Dm -) 1 tablet PO BID [facility] Last Admin: 10/22/17 11:43 Dose: Not Given Guaifenesin (Robitussin -) 10 ml PO Q6H PRN PRN Reason: COUGH Last Admin: 10/21/17 10:41 Dose: 10 ml Insulin Aspart (Novolog Vial Sliding Scale -) 1 vial SQ ACHS [facility] PRN Reason: Protocol Last Admin: 10/22/17 11:50 Dose: Not Given Labetalol HCl (Normodyne -) 200 mg PO TID [facility] Last Admin: 10/22/17 14:50 Dose: Not Given Losartan Potassium (Losartan Potassium) 100 mg PO DAILY [facility] Last Admin: 10/22/17 11:43 Dose: Not Given Methylprednisolone Sodium Succinate (Solu-Medrol -) 40 mg IVPUSH DAILY [facility] Last Admin: 10/22/17 14:57 Dose: 40 mg Minoxidil (Lonitin -) 10 mg PO HS [facility] Last Admin: 10/21/17 22:08 Dose: 10 mg Nifedipine (Procardia Xl -) 60 mg PO BID [facility] Last Admin: 10/22/17 11:43 Dose: Not Given 71 year old woman with PMhx of ESRD on HD (MWF), Difficult to control hypertension, Renal Osteodystrophy who presented to the ED with complaints of cough, subjective fever, muscle aches and admitted for r/o PNA/Influenza. #SOB/Cough/Muscle Aches/Subjective Fever titrate steroids and O2 as per pulmonary #ESRD on HD tolerating dialysis well today #Hypertension continue Losartan, Minoxidil, Nifedipine goal BP < 140/90 Alf Mcmahan DO
[2017-10-22] MEDS ORDERED: PT OWN MED DRAWER 7, Y5N ONE (22:22)
[2017-10-22] MEDS: MINOXIDIL 2.5 MG TABLET PO SCH (22:33)
[2017-10-23] MEDS: ALBUTEROL SO4 2.5/IPRATROPIUM 0.5 INH SOL 3 ML VIAL.NEB. NEB SCH ×3 (06:28→18:34)
[2017-10-23] MEDS: LABETALOL HCL 200 MG TABLET (FP) PO SCH ×3 (06:35→21:52)
[2017-10-23] MEDS: INSULIN SLIDING SCALE (NOVOLOG) 1 VIAL SQ SCH ×4 (06:36→21:39)
[2017-10-23 08:21] LABS: BASO % 0.2 % (0-2.0); EOS % 0.5 % (0-4.5); MCH 27.2 pg (25.7-33.7); MCHC 31.6 g/dl (32.0-36.0); MEAN CELL VOLUME 85.8 fl (80-96); NEUT % 70.2 % (42.8-82.8); PLATELET COUNT 125 K/MM3 (134-434); RDW 16.5 % (11.6-15.6); WHITE BLOOD COUNT 7.8 K/mm3 (4.0-10.0)
[2017-10-23 08:40] LABS: ALBUMIN 3.8 g/dl (3.4-5.0); ANION GAP 13 (8-16); BILIRUBIN,TOTAL 1.2 mg/dL (0.2-1.0); CALCIUM 7.9 mg/dL (8.5-10.1); CO2 28 mmol/L (21-32); CREATININE 5.7 mg/dL (0.55-1.02); GLUCOSE,RANDOM 158 mg/dL (74-106); MAGNESIUM 2.1 mg/dL (1.8-2.4); SGOT/AST 10 U/L (15-37); SGPT/ALT 23 U/L (12-78)
[2017-10-23 08:41] LABS: ALK PHOS 101 U/L (45-117)
[2017-10-23] MEDS: CALCIUM ACETATE 667 MG CAPSULE (FP) PO SCH ×3 (09:27→17:52)
[2017-10-23] MEDS: methylPREDNISolone NA SUCC 40 MG/1 ML VIAL IVPUSH SCH (09:27)
[2017-10-23] MEDS: NIFEdipine E.R 60 MG TABLET (UD) PO SCH ×2 (09:27→21:52)
[2017-10-23] MEDS: guaiFENesin/D-METHORPHAN HB 1 EACH TAB.ER.12H PO SCH ×2 (09:29→21:54)
[2017-10-23] MEDS: LOSARTAN POTASSIUM 100 MG TABLET PO SCH (10:08)
--- NOTE | 2017-10-23 10:58 | PN ---
Progress Note (short form) - Note Progress Note: Overall breathing is better. Some residual cough, sputum. No fevers or chills. Pre and post on 10/21 : lowest saturation 91% Intake & Output 10/20/17 10/21/17 10/22/17 10/23/17 23:59 23:59 23:59 23:59 Intake Total 075 402 7719 Balance 244 965 3663 Weight 147 lb 4 oz 145 lb 0.9 oz 146 lb 145 lb 5 oz Last Vital Signs Temp Pulse Resp BP Pulse Ox 99.4 F 73 20 118/48 95 10/23/17 06:00 10/23/17 06:00 10/23/17 06:00 10/23/17 06:00 10/22/17 21:00 Active Medications Acetaminophen (Tylenol -) 650 mg PO Q6H PRN PRN Reason: FEVER OR PAIN Last Admin: 10/17/17 10:48 Dose: 650 mg Albuterol/Ipratropium (Duoneb -) 1 amp NEB QIDR [facility] Last Admin: 10/23/17 06:28 Dose: 1 amp Calcium Acetate (Phoslo -) 667 mg PO TIDCM [facility] Last Admin: 10/23/17 09:27 Dose: 667 mg Guaifenesin (Mucinex Dm -) 1 tablet PO BID [facility] Last Admin: 10/23/17 09:29 Dose: 1 tablet Guaifenesin (Robitussin -) 10 ml PO Q6H PRN PRN Reason: COUGH Last Admin: 10/21/17 10:41 Dose: 10 ml Insulin Aspart (Novolog Vial Sliding Scale -) 1 vial SQ ACHS [facility] PRN Reason: Protocol Last Admin: 10/23/17 06:36 Dose: 2 units Labetalol HCl (Normodyne -) 200 mg PO TID [facility] Last Admin: 10/23/17 06:35 Dose: 200 mg Losartan Potassium (Losartan Potassium) 100 mg PO DAILY [facility] Last Admin: 10/23/17 10:08 Dose: Not Given Methylprednisolone Sodium Succinate (Solu-Medrol -) 40 mg IVPUSH DAILY [facility] Last Admin: 10/23/17 09:27 Dose: 40 mg Minoxidil (Loniten -) 10 mg PO HS [facility] Nifedipine (Procardia Xl -) 60 mg PO BID [facility] Last Admin: 10/23/17 09:27 Dose: Not Given Gen: NAD at rest Heart: RRR Lung: scattered rhonchi, No wheezes Abd: soft, nontender Ext: no edema Laboratory Results - last 24 hr 10/22/17 10/22/17 10/23/17 17:39 22:28 06:34 WBC RBC Hgb Hct MCV MCH MCHC RDW Plt Count MPV Neutrophils % Lymphocytes % Monocytes % Eosinophils % Basophils % Sodium Potassium Chloride Carbon Dioxide Anion Gap BUN Creatinine Creat Clearance w eGFR POC Glucometer 336 301 182 Random Glucose Calcium Magnesium Total Bilirubin AST ALT Alkaline Phosphatase Total Protein Albumin 10/23/17 10/23/17 06:40 06:40 WBC 7.8 RBC 3.50 L Hgb 9.5 L Hct 30.1 L MCV 85.8 MCH 27.2 MCHC 31.6 L RDW 16.5 H Plt Count 125 L MPV 10.0 Neutrophils % 70.2 Lymphocytes % 19.4 Monocytes % 9.7 Eosinophils % 0.5 Basophils % 0.2 Sodium 142 Potassium 4.0 Chloride 101 Carbon Dioxide 28 D Anion Gap 13 BUN 50 H D Creatinine 5.7 H D Creat Clearance w eGFR 7.33 POC Glucometer Random Glucose 158 H Calcium 7.9 L Magnesium 2.1 Total Bilirubin 1.2 H AST 10 L ALT 23 Alkaline Phosphatase 101 Total Protein 7.0 Albumin 3.8 Problem List - Problems (1) URI (upper respiratory infection) Code(s): J06.9 - ACUTE UPPER RESPIRATORY INFECTION, UNSPECIFIED (2) Acute bronchospasm Code(s): J98.01 - ACUTE BRONCHOSPASM (3) Diabetes Code(s): E11.9 - TYPE 2 DIABETES MELLITUS WITHOUT COMPLICATIONS (4) ESRD (end stage renal disease) on dialysis Code(s): N18.6 - END STAGE RENAL DISEASE; Z99.2 - DEPENDENCE ON RENAL DIALYSIS (5) Hyperlipidemia Code(s): E78.5 - HYPERLIPIDEMIA, UNSPECIFIED Qualifiers: Hyperlipidemia type: pure hypercholesterolemia (6) Hypertension Code(s): I10 - ESSENTIAL (PRIMARY) HYPERTENSION Qualifiers: Hypertension type: essential hypertension Qualified Code(s): I10 - Essential (primary) hypertension A/P Upper Respiratory Tract Infection Acute Bronchospasm LV Diastolic Dysfunction Pulmonary HTN ESRD on HD HTN DM - Change to Prednisone 40mg OD - inhaled bronchodilators standing and PRN - HD per renal - DVT prophylaxis - D/C planning - On most recently documented pre and post ambulation saturation: No need for supplemental O2 Dr Haynes
--- NOTE | 2017-10-23 12:13 | PN ---
Progress Note (short form) - Note Progress Note: Renal Follow up for ESRD Pt seen and examined at the bedside cough and sob improved no fever, chills has some chest discomfort with cough, + sputum production Vital Signs Temperature 99.4 F 10/23/17 06:00 Pulse Rate 73 10/23/17 06:00 Respiratory Rate 20 10/23/17 06:00 Blood Pressure 118/48 10/23/17 06:00 O2 Sat by Pulse Oximetry (%) 95 10/22/17 21:00 Intake & Output 10/20/17 10/21/17 10/22/17 10/23/17 23:59 23:59 23:59 23:59 Intake Total 263 461 9146 Balance 092 507 2997 Weight 66.791 kg 65.796 kg 66.224 kg 65.913 kg NAD awake and alert RRR CTA No Le edema CBC, BMP 10/23/17 06:40 10/23/17 06:40 Current Medications Acetaminophen (Tylenol -) 650 mg PO Q6H PRN PRN Reason: FEVER OR PAIN Last Admin: 10/17/17 10:48 Dose: 650 mg Albuterol/Ipratropium (Duoneb -) 1 amp NEB QIDR [facility] Last Admin: 10/23/17 06:28 Dose: 1 amp Calcium Acetate (Phoslo -) 667 mg PO TIDCM [facility] Last Admin: 10/23/17 09:27 Dose: 667 mg Guaifenesin (Mucinex Dm -) 1 tablet PO BID [facility] Last Admin: 10/23/17 09:29 Dose: 1 tablet Guaifenesin (Robitussin -) 10 ml PO Q6H PRN PRN Reason: COUGH Last Admin: 10/21/17 10:41 Dose: 10 ml Insulin Aspart (Novolog Vial Sliding Scale -) 1 vial SQ ACHS [facility] PRN Reason: Protocol Last Admin: 10/23/17 06:36 Dose: 2 units Labetalol HCl (Normodyne -) 200 mg PO TID [facility] Last Admin: 10/23/17 06:35 Dose: 200 mg Losartan Potassium (Losartan Potassium) 100 mg PO DAILY [facility] Last Admin: 10/23/17 10:08 Dose: Not Given Minoxidil (Loniten -) 10 mg PO HS [facility] Nifedipine (Procardia Xl -) 60 mg PO BID [facility] Last Admin: 10/23/17 09:27 Dose: Not Given Prednisone (Deltasone -) 40 mg PO DAILY [facility] 71 year old woman with PMhx of ESRD on HD (MWF), Difficult to control hypertension, Renal Osteodystrophy who presented to the ED with complaints of cough, subjective fever, muscle aches and admitted for r/o PNA/Influenza. #SOB/Cough/Muscle Aches/Subjective Fever on oral steroids O2 as per pulmonary #ESRD on HD no acute indication for dialysis today next treatment planned for tomorrow #Hypertension continue Losartan, Minoxidil, Nifedipine goal BP < 140/90 Alf Mcmahan DO
--- NOTE | 2017-10-23 12:53 | PN ---
Physical Exam: SUBJECTIVE: Patient seen and examined at the bedside. OBJECTIVE: Pre and post ambulation with 2 liters oxygen @ 86%, pt qualifies for oxygen home therapy Insurance is an obstacle, only has ins. for dialysis not DMEs, pt family unable to pay out of pocket Vital Signs Period Temp Pulse Resp BP Sys/Parker Pulse Ox Last 24 Hr 98 F-99.4 F 63-84 18-20 97-157/42-76 94-95 GENERAL: The patient is awake, alert, and fully oriented, in no acute distress. HEAD: Normal with no signs of trauma. EYES: PERRL, extraocular movements intact, sclera anicteric, conjunctiva clear. No ptosis. ENT: Ears normal, nares patent, oropharynx clear without exudates, moist mucous membranes. NECK: Trachea midline, full range of motion, supple. LUNGS: Breath sounds equal but diminished on bilateral lower lobes HEART: Regular rate and rhythm, S1, S2 without murmur, rub or gallop. ABDOMEN: Soft, nontender, nondistended, normoactive bowel sounds, no guarding, no rebound, no hepatosplenomegaly, no masses. EXTREMITIES: 2+ pulses, warm, well-perfused, no edema. NEUROLOGICAL: Cranial nerves II through XII grossly intact. Normal speech, steady gait with RW PSYCH: Normal mood, normal affect. SKIN: Warm, dry, normal turgor, no rashes or lesions noted Laboratory Results - last 24 hr 10/22/17 10/22/17 10/23/17 17:39 22:28 06:34 WBC RBC Hgb Hct MCV MCH MCHC RDW Plt Count MPV Neutrophils % Lymphocytes % Monocytes % Eosinophils % Basophils % Sodium Potassium Chloride Carbon Dioxide Anion Gap BUN Creatinine Creat Clearance w eGFR POC Glucometer 336 301 182 Random Glucose Calcium Magnesium Total Bilirubin AST ALT Alkaline Phosphatase Total Protein Albumin 10/23/17 10/23/17 10/23/17 06:40 06:40 12:27 WBC 7.8 RBC 3.50 L Hgb 9.5 L Hct 30.1 L MCV 85.8 MCH 27.2 MCHC 31.6 L RDW 16.5 H Plt Count 125 L MPV 10.0 Neutrophils % 70.2 Lymphocytes % 19.4 Monocytes % 9.7 Eosinophils % 0.5 Basophils % 0.2 Sodium 142 Potassium 4.0 Chloride 101 Carbon Dioxide 28 D Anion Gap 13 BUN 50 H D Creatinine 5.7 H D Creat Clearance w eGFR 7.33 POC Glucometer 285 Random Glucose 158 H Calcium 7.9 L Magnesium 2.1 Total Bilirubin 1.2 H AST 10 L ALT 23 Alkaline Phosphatase 101 Total Protein 7.0 Albumin 3.8 Active Medications Generic Name Dose Route Start Last Admin Trade Name Freq PRN Reason Stop Dose Admin Acetaminophen 650 mg 10/16/17 07:15 10/17/17 10:48 Tylenol - PO 650 mg Q6H PRN Administration FEVER OR PAIN Albuterol/Ipratropium 1 amp 10/16/17 12:00 10/23/17 12:29 Duoneb - NEB 1 amp QIDR [facility] Administration Calcium Acetate 667 mg 10/16/17 08:00 10/23/17 12:37 Phoslo - PO 667 mg TIDCM [facility] Administration Guaifenesin 1 tablet 10/18/17 12:15 10/23/17 09:29 Mucinex Dm - PO 1 tablet BID [facility] Administration Guaifenesin 10 ml 10/19/17 15:59 10/21/17 10:41 Robitussin - PO 10 ml Q6H PRN Administration COUGH Insulin Aspart 1 vial 10/17/17 16:30 10/23/17 12:37 Novolog Vial Sliding Scale - SQ 6 units ACHS [facility] Administration Protocol Labetalol HCl 200 mg 10/16/17 06:00 10/23/17 06:35 Normodyne - PO 200 mg TID [facility] Administration Losartan Potassium 100 mg 10/16/17 10:00 10/23/17 10:08 Losartan Potassium PO Not Given DAILY [facility] Minoxidil 10 mg 10/23/17 22:00 Loniten - PO HS [facility] Nifedipine 60 mg 10/16/17 10:00 10/23/17 09:27 Procardia Xl - PO Not Given BID [facility] Prednisone 40 mg 10/24/17 10:00 Deltasone - PO DAILY [facility] ASSESSMENT/PLAN: Patient is a 71 year old female with a past medical history of hypertension, diabetes, hyperlipidemia, LV diastolic dysfunction, and ESRD (dialysis via left upper arm). She was admitted on 10/16/2017 with a chief complaint of shortness of breath x 4 days with a productive cough. Pulmonary: URI and acute bronchospasms, resolved Hypoxia, acute Serial pre and post resp shows pt qualifies for home oxygen, pt ambulated in hallway with resp therapy and desats of 86% noted on 2 liters On Prednisone 40mg PO daily Mucinex BID Duonebs Supplemental oxygen @ 2 liters Cardiology: Hypertension, chronic LV diastolic dysfunction, chronic On Procardia XL 60mg BID, Labetalol HCL 200mg PO TID Renal: ESRD, chronic HD MWF scheduled via LUE Dialysis yesterday On Phoslo 667mg TID F.E.N. fluids: none, dialysis patient electrolytes: monitor daily nutrition: reports poor PO intake, start glucerna Prophylaxis: DVT: SCDs GI: deferred Disposition: Discharge home with oxygen. full code. Visit type - Emergency Visit Emergency Visit: Yes ED Registration Date: 10/16/17 Care time: The patient presented to the Emergency Department on the above date and was hospitalized for further evaluation of their emergent condition. - New Patient This patient is new to me today: No - Critical Care Critical Care patient: No - Discharge Referral Referred to [facility] No Physician Referral: Lissett Cintron MD ([facility])
[2017-10-23] MEDS: MINOXIDIL 10 MG TABLET PO SCH (21:53)
[2017-10-24] MEDS: INSULIN SLIDING SCALE (NOVOLOG) 1 VIAL SQ SCH ×4 (06:09→22:55)
[2017-10-24] MEDS: LABETALOL HCL 200 MG TABLET (FP) PO SCH ×4 (06:10→22:47)
[2017-10-24] MEDS: ALBUTEROL SO4 2.5/IPRATROPIUM 0.5 INH SOL 3 ML VIAL.NEB. NEB SCH ×3 (06:44→11:10)
[2017-10-24] MEDS: CALCIUM ACETATE 667 MG CAPSULE (FP) PO SCH ×3 (08:21→17:38)
[2017-10-24] MEDS ORDERED: PT OWN MED DRAWER 7, Y5N ONE (09:31)
[2017-10-24] MEDS: predniSONE 20 MG TABLET (UD) PO SCH (09:33)
[2017-10-24] MEDS: LOSARTAN POTASSIUM 100 MG TABLET PO SCH (09:34)
[2017-10-24] MEDS: guaiFENesin/D-METHORPHAN HB 1 EACH TAB.ER.12H PO SCH ×2 (09:36→22:48)
[2017-10-24] MEDS: NIFEdipine E.R 60 MG TABLET (UD) PO SCH ×2 (09:36→22:47)
--- NOTE | 2017-10-24 10:26 | PN ---
Progress Note (short form) - Note Progress Note: Subjective: The patient was seen and examined at the bedside, she reports feeling good, denies any shortness of breath. Current Medications Generic Name Dose Route Start Last Admin Trade Name Freq PRN Reason Stop Dose Admin Acetaminophen 650 mg 10/16/17 07:15 10/17/17 10:48 Tylenol - PO 650 mg Q6H PRN Administration FEVER OR PAIN Albuterol/Ipratropium 1 amp 10/16/17 12:00 10/24/17 06:44 Duoneb - NEB 1 amp QIDR [facility] Administration Calcium Acetate 667 mg 10/16/17 08:00 10/24/17 08:21 Phoslo - PO 667 mg TIDCM [facility] Administration Guaifenesin 1 tablet 10/18/17 12:15 10/24/17 09:36 Mucinex Dm - PO 1 tablet BID [facility] Administration Guaifenesin 10 ml 10/19/17 15:59 10/21/17 10:41 Robitussin - PO 10 ml Q6H PRN Administration COUGH Insulin Aspart 1 vial 10/17/17 16:30 10/24/17 06:09 Novolog Vial Sliding Scale - SQ 2 units ACHS [facility] Administration Protocol Labetalol HCl 200 mg 10/16/17 06:00 10/24/17 06:10 Normodyne - PO 200 mg TID [facility] Administration Losartan Potassium 100 mg 10/16/17 10:00 10/24/17 09:34 Losartan Potassium PO 100 mg DAILY [facility] Administration Minoxidil 10 mg 10/23/17 22:00 10/23/17 21:53 Loniten - PO 10 mg HS [facility] Administration Nifedipine 60 mg 10/16/17 10:00 10/24/17 09:36 Procardia Xl - PO 60 mg BID [facility] Administration Prednisone 40 mg 10/24/17 10:00 10/24/17 09:33 Deltasone - PO 40 mg DAILY [facility] Administration Objective: Vital Signs Period Temp Pulse Resp BP Sys/Parker Pulse Ox Last 24 Hr 98.3 F-98.9 F 72-98 18-20 133-142/54-60 90-94 Physical Exam: General: NAD, A&Ox3, bengali speaking Lungs: B/l rhonchi Heart: RRR, S1S2 Abd: Soft, non-tender, non-distended. Normoactive bowel sounds Ext: Warm, well-perfused CBCD WBC 7.8 K/mm3 (4.0-10.0) 10/23/17 06:40 RBC 3.50 M/mm3 (3.60-5.2) L 10/23/17 06:40 Hgb 9.5 GM/dL (10.7-15.3) L 10/23/17 06:40 Hct 30.1 % (32.4-45.2) L 10/23/17 06:40 MCV 85.8 fl (80-96) 10/23/17 06:40 MCHC 31.6 g/dl (32.0-36.0) L 10/23/17 06:40 RDW 16.5 % (11.6-15.6) H 10/23/17 06:40 Plt Count 125 K/MM3 (134-434) L 10/23/17 06:40 MPV 10.0 fl (7.5-11.1) 10/23/17 06:40 CMP Sodium 142 mmol/L (136-145) 10/23/17 06:40 Potassium 4.0 mmol/L (3.5-5.1) 10/23/17 06:40 Chloride 101 mmol/L (98-107) 10/23/17 06:40 Carbon Dioxide 28 mmol/L (21-32) D 10/23/17 06:40 Anion Gap 13 (8-16) 10/23/17 06:40 BUN 50 mg/dL (7-18) H D 10/23/17 06:40 Creatinine 5.7 mg/dL (0.55-1.02) H D 10/23/17 06:40 Creat Clearance w eGFR 7.33 (>60) 10/23/17 06:40 Random Glucose 158 mg/dL (74-106) H 10/23/17 06:40 Calcium 7.9 mg/dL (8.5-10.1) L 10/23/17 06:40 Total Bilirubin 1.2 mg/dL (0.2-1.0) H 10/23/17 06:40 AST 10 U/L (15-37) L 10/23/17 06:40 ALT 23 U/L (12-78) 10/23/17 06:40 Alkaline Phosphatase 101 U/L (45-117) 10/23/17 06:40 Total Protein 7.0 g/dl (6.4-8.2) 10/23/17 06:40 Albumin 3.8 g/dl (3.4-5.0) 10/23/17 06:40 CARDIAC ENZYMES Creatine Kinase 152 IU/L (26-192) 10/15/17 21:30 Troponin I 0.07 ng/ml (0.00-0.05) H 10/16/17 07:30 Microbiology 10/16/17 00:21 Blood - Peripheral Venous Blood Culture - Final NO GROWTH AFTER 5 DAYS INCUBATION 10/16/17 00:21 Blood - Peripheral Venous Blood Culture - Final NO GROWTH AFTER 5 DAYS INCUBATION 10/16/17 00:24 Nasopharyngeal Swab Influenza Types A,B Antigen (IFEANYI) - Final 10/16/17 00:24 Nasopharyngeal Swab - Final Assessment: This is a 71 year old female with PMHx of HTN, DM, hyperlipidemia, LV diastolic dysfunction, ESRD on HD, who presented to the ED with worsening shortness of breath x4 days and a productive cough. Plan: 1) Upper respiratory tract infection - Likely viral - Chest X-ray with no acute pathology - Now on po prednisone - Continue Duonebs - Pre/post O2, with spO2 desaturation to 86%, qualifies for home O2 - Appreciate pulmonary consult 2) Chronic hypertension - Continue Procardia - Continue Losartan - Continue Labetolol - Continue Minoxidil 3) ESRD on HD - Continue HD M,W,F - Appreciate nephrology consult 4) F/E/N: - Monitor electrolytes - Renal diet 5) Prophylaxis: - OOB ambulating with O2 - Protonix daily while on steroids - Heparin 5,000u sq bid 6) Dispo: - Requires continued inpatient care - Needs home O2 CODE STATUS: FULL CODE Visit type - Emergency Visit Emergency Visit: Yes ED Registration Date: 10/16/17 Care time: The patient presented to the Emergency Department on the above date and was hospitalized for further evaluation of their emergent condition. - New Patient This patient is new to me today: Yes Date on this admission: 10/24/17 - Critical Care Critical Care patient: No
--- NOTE | 2017-10-24 11:06 | PN ---
Progress Note (short form) - Note Progress Note: PULMOANRY VSS/AFEBRILE SPO2 92% AT REST DESATS WITH AMBULATION TO 86% REQUIRES HOME O2 ANICTERIC DISTANT B/L BREATH SOUNDS S1S2 BS+ LESS EDEMA LOWER EXT LABS/MEDS/NOTES/IMAGES REVIEWED CRF ON HD URI ACUTE BRONCHOSPASM RESOLVED LVDD PUL HTN HTN/DM STEROIDS/DUONEB/ HOME O2/DISCHARGE PLANNING Niles HIGUERA MD
[2017-10-24] MEDS ORDERED: HEPARIN NA (PORCINE) 5,000 UNITS/ML 1ML VIAL IVPUSH ONE (11:18)
[2017-10-24] MEDS: PANTOPRAZOLE 40 MG TABLET (FP) PO SCH (11:25)
[2017-10-24 12:32] LABS: MCH 27.1 pg (25.7-33.7); MCHC 31.7 g/dl (32.0-36.0); MEAN CELL VOLUME 85.5 fl (80-96); MEAN PLT VOLUME 10.6 fl (7.5-11.1); PLATELET COUNT 128 K/MM3 (134-434); RDW 16.5 % (11.6-15.6); WHITE BLOOD COUNT 7.8 K/mm3 (4.0-10.0)
[2017-10-24 12:54] LABS: ANION GAP 12 (8-16); CALCIUM 7.4 mg/dL (8.5-10.1); CO2 27 mmol/L (21-32); CREATININE 7.3 mg/dL (0.55-1.02); GLUCOSE,RANDOM 224 mg/dL (74-106); PHOSPHOROUS 4.5 mg/dL (2.5-4.9)
--- NOTE | 2017-10-24 13:16 | PN ---
Progress Note (short form) - Note Progress Note: Renal Follow up for ESRD Pt seen and examined during dialysis bp stable , goal UF is 3L AVF with good flow pt without any acute complaints sob is improved, cough is improved Vital Signs Temperature 98.3 F 10/24/17 08:05 Pulse Rate 68 10/24/17 08:05 Respiratory Rate 18 10/24/17 08:05 Blood Pressure 125/69 10/24/17 08:05 O2 Sat by Pulse Oximetry (%) 90 L 10/23/17 21:00 Intake & Output 10/21/17 10/22/17 10/23/17 10/24/17 23:59 23:59 23:59 23:59 Intake Total 870 1130 1100 350 Balance 870 1130 1100 350 Weight 65.796 kg 66.224 kg 65.913 kg 65.317 kg NAD awake and alert RRR CTA No Le edema CBC, BMP 10/24/17 11:45 Current Medications Acetaminophen (Tylenol -) 650 mg PO Q6H PRN PRN Reason: FEVER OR PAIN Last Admin: 10/17/17 10:48 Dose: 650 mg Albuterol/Ipratropium (Duoneb -) 1 amp NEB QIDR [facility] Last Admin: 10/24/17 11:10 Dose: 1 amp Calcium Acetate (Phoslo -) 667 mg PO TIDCM [facility] Last Admin: 10/24/17 12:13 Dose: Not Given Epoetin Arturo (Procrit -) 10,000 unit IVPUSH ONCE ONE Stop: 10/24/17 11:19 Guaifenesin (Mucinex Dm -) 1 tablet PO BID [facility] Last Admin: 10/24/17 09:36 Dose: 1 tablet Guaifenesin (Robitussin -) 10 ml PO Q6H PRN PRN Reason: COUGH Last Admin: 10/21/17 10:41 Dose: 10 ml Heparin Sodium (Porcine) (Heparin -) 5,000 unit SQ BID [facility] Insulin Aspart (Novolog Vial Sliding Scale -) 1 vial SQ ACHS [facility] PRN Reason: Protocol Last Admin: 10/24/17 11:27 Dose: 4 units Labetalol HCl (Normodyne -) 200 mg PO TID [facility] Last Admin: 10/24/17 06:10 Dose: 200 mg Losartan Potassium (Losartan Potassium) 100 mg PO DAILY [facility] Last Admin: 10/24/17 09:34 Dose: 100 mg Minoxidil (Loniten -) 10 mg PO HS [facility] Last Admin: 10/23/17 21:53 Dose: 10 mg Nifedipine (Procardia Xl -) 60 mg PO BID [facility] Last Admin: 10/24/17 09:36 Dose: 60 mg Pantoprazole Sodium (Protonix -) 40 mg PO DAILY [facility] Last Admin: 10/24/17 11:25 Dose: 40 mg Prednisone (Deltasone -) 40 mg PO DAILY [facility] Last Admin: 10/24/17 09:33 Dose: 40 mg 71 year old woman with PMhx of ESRD on HD (MWF), Difficult to control hypertension, Renal Osteodystrophy who presented to the ED with complaints of cough, subjective fever, muscle aches and admitted for r/o PNA/Influenza. #SOB/Cough/Muscle Aches/Subjective Fever clinically improved need home O2 steroid taper #ESRD on HD tolerating dialysis well today #Hypertension continue Losartan, Minoxidil, Nifedipine goal BP < 140/90 Alf Mcmahan DO
[2017-10-24] MEDS ORDERED: EPOETIN ALFA 10,000 UNIT/1 ML VIAL IVPUSH ONE (14:15)
[2017-10-24] MEDS: ACETAMINOPHEN 325 MG TABLET (FP) PO PRN (15:26)
[2017-10-24] MEDS: HEPARIN NA (PORCINE) 5,000 UNITS/ML 1ML VIAL SQ SCH (22:47)
[2017-10-24] MEDS: MINOXIDIL 10 MG TABLET PO SCH (22:48)
[2017-10-25] MEDS: LABETALOL HCL 200 MG TABLET (FP) PO SCH (06:28)
[2017-10-25] MEDS: INSULIN SLIDING SCALE (NOVOLOG) 1 VIAL SQ SCH ×2 (06:29→11:29)
[2017-10-25] MEDS: CALCIUM ACETATE 667 MG CAPSULE (FP) PO SCH ×2 (08:42→11:14)
--- NOTE | 2017-10-25 09:40 | PN ---
Progress Note (short form) - Note Progress Note: No acute events overnight. Overall breathing appears better. Some residual cough, sputum. No fevers or chills. Intake & Output 10/22/17 10/23/17 10/24/17 10/25/17 23:59 23:59 23:59 23:59 Intake Total 1130 1100 750 350 Balance 1130 1100 750 350 Weight 146 lb 145 lb 5 oz 144 lb Last Vital Signs Temp Pulse Resp BP Pulse Ox 99 F 69 20 124/50 98 10/25/17 06:00 10/25/17 06:00 10/25/17 06:00 10/25/17 06:00 10/24/17 21:00 Active Medications Acetaminophen (Tylenol -) 650 mg PO Q6H PRN PRN Reason: FEVER OR PAIN Last Admin: 10/24/17 15:26 Dose: 650 mg Calcium Acetate (Phoslo -) 667 mg PO TIDCM [facility] Last Admin: 10/25/17 08:42 Dose: 667 mg Guaifenesin (Mucinex Dm -) 1 tablet PO BID [facility] Last Admin: 10/24/17 22:48 Dose: 1 tablet Guaifenesin (Robitussin -) 10 ml PO Q6H PRN PRN Reason: COUGH Last Admin: 10/21/17 10:41 Dose: 10 ml Heparin Sodium (Porcine) (Heparin -) 5,000 unit SQ BID [facility] Last Admin: 10/24/17 22:47 Dose: 5,000 unit Insulin Aspart (Novolog Vial Sliding Scale -) 1 vial SQ ACHS [facility] PRN Reason: Protocol Last Admin: 10/25/17 06:29 Dose: 2 units Labetalol HCl (Normodyne -) 200 mg PO TID [facility] Last Admin: 10/25/17 06:28 Dose: 200 mg Losartan Potassium (Losartan Potassium) 100 mg PO DAILY [facility] Last Admin: 10/24/17 09:34 Dose: 100 mg Minoxidil (Loniten -) 10 mg PO HS [facility] Last Admin: 10/24/17 22:48 Dose: 10 mg Nifedipine (Procardia Xl -) 60 mg PO BID [facility] Last Admin: 10/24/17 22:47 Dose: 60 mg Pantoprazole Sodium (Protonix -) 40 mg PO DAILY [facility] Last Admin: 10/24/17 11:25 Dose: 40 mg Prednisone (Deltasone -) 40 mg PO DAILY [facility] Last Admin: 10/24/17 09:33 Dose: 40 mg Gen: NAD at rest Heart: RRR Lung: scattered rhonchi, No wheezes Abd: soft, nontender Ext: no edema Laboratory Results - last 24 hr 10/24/17 10/24/17 10/24/17 11:20 11:45 11:45 WBC 7.8 RBC 3.16 L Hgb 8.6 L Hct 27.0 L MCV 85.5 MCH 27.1 MCHC 31.7 L RDW 16.5 H Plt Count 128 L MPV 10.6 Sodium 138 Potassium 4.1 Chloride 99 Carbon Dioxide 27 Anion Gap 12 BUN 71 H D Creatinine 7.3 H D POC Glucometer 235 Random Glucose 224 H D Calcium 7.4 L Phosphorus 4.5 D 10/24/17 10/24/17 10/25/17 16:40 22:54 05:54 WBC RBC Hgb Hct MCV MCH MCHC RDW Plt Count MPV Sodium Potassium Chloride Carbon Dioxide Anion Gap BUN Creatinine POC Glucometer 274 273 186 Random Glucose Calcium Phosphorus Problem List - Problems (1) URI (upper respiratory infection) Code(s): J06.9 - ACUTE UPPER RESPIRATORY INFECTION, UNSPECIFIED (2) Acute bronchospasm Code(s): J98.01 - ACUTE BRONCHOSPASM (3) Diabetes Code(s): E11.9 - TYPE 2 DIABETES MELLITUS WITHOUT COMPLICATIONS (4) ESRD (end stage renal disease) on dialysis Code(s): N18.6 - END STAGE RENAL DISEASE; Z99.2 - DEPENDENCE ON RENAL DIALYSIS (5) Hyperlipidemia Code(s): E78.5 - HYPERLIPIDEMIA, UNSPECIFIED Qualifiers: Hyperlipidemia type: pure hypercholesterolemia (6) Hypertension Code(s): I10 - ESSENTIAL (PRIMARY) HYPERTENSION Qualifiers: Hypertension type: essential hypertension Qualified Code(s): I10 - Essential (primary) hypertension A/P Upper Respiratory Tract Infection Acute Bronchospasm LV Diastolic Dysfunction Pulmonary HTN ESRD on HD HTN DM - Prednisone 40mg OD - Will need supplemental O2 as post ambulation saturation was 86% - inhaled bronchodilators standing and PRN - HD per renal - DVT prophylaxis - D/C planning Dr Haynes
[2017-10-25 09:59] VITALS: PULSE 72
[2017-10-25] MEDS ORDERED: PT OWN MED DRAWER 7, Y5N ONE (11:11)
[2017-10-25] MEDS: NIFEdipine E.R 60 MG TABLET (UD) PO SCH (11:12)
[2017-10-25] MEDS: PANTOPRAZOLE 40 MG TABLET (FP) PO SCH (11:12)
[2017-10-25] MEDS: predniSONE 20 MG TABLET (UD) PO SCH (11:13)
[2017-10-25] MEDS: HEPARIN NA (PORCINE) 5,000 UNITS/ML 1ML VIAL SQ SCH (11:14)
[2017-10-25] MEDS: guaiFENesin/D-METHORPHAN HB 1 EACH TAB.ER.12H PO SCH (11:16)
[2017-10-25] MEDS: LOSARTAN POTASSIUM 100 MG TABLET PO SCH (11:16)
--- NOTE | 2017-10-25 12:03 | DS ---
Physical Examination Vital Signs: Vital Signs Temperature 99 F 10/25/17 06:00 Pulse Rate 72 10/25/17 09:45 Respiratory Rate 20 10/25/17 06:00 Blood Pressure 124/50 10/25/17 06:00 O2 Sat by Pulse Oximetry (%) 92 L 10/25/17 09:45 Labs: CBC, BMP 10/24/17 11:45 10/24/17 11:45 Discharge Summary Reason For Visit: SHORTNESS OF BREATH Current Active Problems Acute bronchospasm (Acute) Shortness of breath (Acute) URI (upper respiratory infection) (Acute) Condition: Stable - Instructions Diet, Activity, Other Instructions: Please return to the ED for any new, persistent, or worsening symptoms. Follow up with your PCP in 1 week Complete steroid taper as directed and until completed Continue home medications as directed Continue dialysis as scheduled Referrals: Ken Burgos [Primary Care Provider] - Alf Mcmahan MD [Staff Physician] - Antonino Nayak MD, MD [Staff Physician] - 2 Weeks (follow up in 2 weeks ) Disposition: HOME - Home Medications Comprehensive Discharge Medication List: Ambulatory Orders Losartan Potassium 100 mg PO DAILY 01/08/17 Nifedipine ER [Procardia XL -] 60 mg PO BID 01/08/17 Acetaminophen [Tylenol .Regular Strength -] 650 mg PO Q6H PRN tablet 10/25/17 Albuterol 2.5/Ipratropium 0.5 [Duoneb -] 1 amp NEB QIDR #120 amp 10/25/17 Calcium Acetate [Phoslo -] 667 mg PO TIDCM #90 capsule 10/25/17 Glipizide 5 mg PO DAILY #30 tablet 10/25/17 Guaifenesin [Robitussin -] 10 ml PO Q6H PRN #90 cup 10/25/17 Labetalol HCl [Normodyne -] 200 mg PO TID #90 tablet 10/25/17 Minoxidil [Loniten -] 10 mg PO HS #30 tablet 10/25/17 Pantoprazole Sodium [Protonix -] 40 mg PO DAILY #30 tablet.ec 10/25/17 Prednisone 10 mg PO ASDIR #30 tablet 10/25/17 - Discharge Referral Referred to [facility] No Physician Referral: Lissett Cintron MD ([facility])
[2017-10-25 13:01] VITALS: BP 134/53; TEMP 98.5
--- NOTE | 2017-10-25 13:12 | PN ---
Progress Note (short form) - Note Progress Note: Renal Follow up for ESRD Pt seen and examined at the bedside no acute complaints no sob, chest pain, abd pain, N/V Vital Signs Temperature 98.5 F 10/25/17 09:00 Pulse Rate 72 10/25/17 09:45 Respiratory Rate 18 10/25/17 09:00 Blood Pressure 134/53 10/25/17 09:00 O2 Sat by Pulse Oximetry (%) 92 L 10/25/17 09:45 Intake & Output 10/22/17 10/23/17 10/24/17 10/25/17 23:59 23:59 23:59 23:59 Intake Total 1130 1100 750 650 Balance 1130 1100 750 650 Weight 66.224 kg 65.913 kg 65.317 kg NAD awake and alert RRR CTA No Le edema CBC, BMP 10/24/17 11:45 10/24/17 11:45 Current Medications Acetaminophen (Tylenol -) 650 mg PO Q6H PRN PRN Reason: FEVER OR PAIN Last Admin: 10/24/17 15:26 Dose: 650 mg Calcium Acetate (Phoslo -) 667 mg PO TIDCM [facility] Last Admin: 10/25/17 11:14 Dose: 667 mg Guaifenesin (Mucinex Dm -) 1 tablet PO BID [facility] Last Admin: 10/25/17 11:16 Dose: 1 tablet Guaifenesin (Robitussin -) 10 ml PO Q6H PRN PRN Reason: COUGH Last Admin: 10/21/17 10:41 Dose: 10 ml Heparin Sodium (Porcine) (Heparin -) 5,000 unit SQ BID [facility] Last Admin: 10/25/17 11:14 Dose: 5,000 unit Insulin Aspart (Novolog Vial Sliding Scale -) 1 vial SQ ACHS [facility] PRN Reason: Protocol Last Admin: 10/25/17 11:29 Dose: 4 units Labetalol HCl (Normodyne -) 200 mg PO TID [facility] Last Admin: 10/25/17 06:28 Dose: 200 mg Losartan Potassium (Losartan Potassium) 100 mg PO DAILY [facility] Last Admin: 10/25/17 11:16 Dose: 100 mg Minoxidil (Loniten -) 10 mg PO HS [facility] Last Admin: 10/24/17 22:48 Dose: 10 mg Nifedipine (Procardia Xl -) 60 mg PO BID [facility] Last Admin: 10/25/17 11:12 Dose: 60 mg Pantoprazole Sodium (Protonix -) 40 mg PO DAILY [facility] Last Admin: 10/25/17 11:12 Dose: 40 mg Prednisone (Deltasone -) 40 mg PO DAILY [facility] Last Admin: 10/25/17 11:13 Dose: 40 mg 71 year old woman with PMhx of ESRD on HD (MWF), Difficult to control hypertension, Renal Osteodystrophy who presented to the ED with complaints of cough, subjective fever, muscle aches and admitted for r/o PNA/Influenza. #SOB/Cough/Muscle Aches/Subjective Fever improved O2 sat at goal now off O2 for d/c home #ESRD on HD to resume dialysis as outpatient #Hypertension continue Losartan, Minoxidil, Nifedipine goal BP < 140/90 Alf Mcmahan DO
== END 2017-10-25 13:45 | disposition home or self-care (01) | DRG 113 ==
LOC: JER 19:45 → JERBED 23:38 → J8W 10-16 02:01 → OBSVTOIN 10-16 17:26
PROVIDERS: ADMIT Internal Medicine; ATTEND Registered Nurse
PROC: 5A1D70Z Performance of Urinary Filtration, Intermittent, Less than 6 Hours Per Day (ICD-10-PCS; principal; 2017-10-22)
DX: J06.9 Acute upper respiratory infection, unspecified (principal); J98.01 Acute bronchospasm; I13.2 Hypertensive heart and chronic kidney disease with heart failure and with stage 5 chronic kidney disease, or end stage renal disease; E11.22 Type 2 diabetes mellitus with diabetic chronic kidney disease; I50.32 Chronic diastolic (congestive) heart failure; I27.20 Pulmonary hypertension, unspecified; N18.6 End stage renal disease; I48.91 Unspecified atrial fibrillation; N25.0 Renal osteodystrophy; Z99.2 Dependence on renal dialysis; E78.5 Hyperlipidemia, unspecified; M79.1 Myalgia; Z79.4 Long term (current) use of insulin; M54.5 Low back pain; I69.392 Facial weakness following cerebral infarction; Z87.891 Personal history of nicotine dependence; R09.02 Hypoxemia
CPT/HCPCS: 36415; 71010-TC; 80048; 80053; 82550; 82553; 82565; 83605; 83690; 83735; 83880; 84100; 84484; 84520; 85025; 85027; 85610; 86704; 86706; 86708; 86803; 87040; 87340; 87804; 93005; 93010; 94640; 94761; 99285-25; G0378; J0885; J1644

== ENCOUNTER 2018-01-31 23:10 | Emergency (ER) | payer OTHER ==
[2018-01-31 23:45] VITALS: BMI 31.1
--- NOTE | 2018-02-01 00:11 | PDOC ---
History of Present Illness - General History Source: Patient, Family Exam Limitations: No Limitations - History of Present Illness Initial Comments: 02/01/18 01:03 The patient is a 72 year old female, accompanied by family, with a significant past medical history of ESRD (dialysis M/W/F), congestive heart failure, hypertension, hyperlipidemia, diabetes mellitus, who presents to the emergency department with, periumbilical pain for approx. 3 days. The patient also reports recent chills but denies any fevers. The patient states her last bowel movement was this evening around 7 pm which she describes as normal (denies melena or hematochezia). She denies sick contacts. She denies recent fevers, headache or dizziness. She denies recent nausea, vomit , diarrhea or constipation. She denies recent dysuria, frequency, urgency or hematuria. She denies recent chest pain or shortness of breath. Allergies: NKA Primary Care Physician: Dr. Burgos Lap Regulator: Dr. Sobeida Chavez <Benson Spencer - Last Filed: 02/01/18 01:03> <Sylvia Norton - Last Filed: 02/01/18 01:58> - General Chief Complaint: Pain, Acute Stated Complaint: ABDOMINAL PAIN Time Seen by Provider: 01/31/18 23:41 Past History <Benson Spencer - Last Filed: 02/01/18 01:03> - Past Medical History Anemia: Yes Asthma: No Cancer: No Cardiac Disorders: No CVA: No COPD: No CHF: Yes Dementia: No Diabetes: Yes Dialysis: Yes GI Disorders: No Disorders: Yes (esrd, dialysis m/w/f) HTN: Yes Hypercholesterolemia: Yes Liver Disease: Yes Seizures: No Thyroid Disease: No - Surgical History Abdominal Surgery: Yes Appendectomy: No Cardiac Surgery: No Cholecystectomy: No Lung Surgery: No Neurologic Surgery: No Orthopedic Surgery: No - Immunization History Immunization Up to Date: Yes - Suicide/Smoking/Psychosocial Hx Smoking History: Never smoked Have you smoked in the past 12 months: No Number of Cigarettes Smoked Daily: 0 Hx Alcohol Use: No Drug/Substance Use Hx: No Substance Use Type: None Hx Substance Use Treatment: No <Sylvia Norton - Last Filed: 02/01/18 01:58> - Past Medical History Allergies/Adverse Reactions: Allergies Allergy/AdvReac Type Severity Reaction Status Date / Time No Known Allergies Allergy Verified 01/31/18 23:41 Home Medications: Ambulatory Orders Losartan Potassium 100 mg PO DAILY 01/08/17 Nifedipine ER [Procardia XL -] 60 mg PO BID 01/08/17 Acetaminophen [Tylenol .Regular Strength -] 650 mg PO Q6H PRN tablet 10/25/17 Calcium Acetate [Phoslo -] 667 mg PO TIDCM #90 capsule 10/25/17 Glipizide 5 mg PO DAILY #30 tablet 10/25/17 Labetalol HCl [Normodyne -] 200 mg PO TID #90 tablet 10/25/17 Minoxidil [Loniten -] 10 mg PO HS #30 tablet 10/25/17 Pantoprazole Sodium [Protonix -] 40 mg PO DAILY #30 tablet.ec 10/25/17 Review of Systems - Review of Systems Comments:: 02/01/18 01:04 GENERAL/CONSTITUTIONAL: +Chills. No fever. No weakness. HEAD, EYES, EARS, NOSE AND THROAT: No change in vision. No ear pain or discharge. No sore throat. CARDIOVASCULAR: No chest pain or shortness of breath. RESPIRATORY: No cough, wheezing, or hemoptysis. GASTROINTESTINAL: +Periumbilical abdominal pain. No nausea, vomiting, diarrhea or constipation. GENITOURINARY: No dysuria, frequency, or change in urination. MUSCULOSKELETAL: No joint or muscle swelling or pain. No neck or back pain. SKIN: No rash NEUROLOGIC: No headache, vertigo, loss of consciousness, or change in strength/ sensation. ENDOCRINE: No increased thirst. No abnormal weight change. HEMATOLOGIC/LYMPHATIC: No anemia, easy bleeding, or history of blood clots. ALLERGIC/IMMUNOLOGIC: No hives or skin allergy. <Benson Spencer - Last Filed: 02/01/18 01:03> *Physical Exam - Vital Signs Last Vital Signs Temp Pulse Resp BP Pulse Ox 98.2 F 81 28 H 179/90 98 01/31/18 23:41 01/31/18 23:41 01/31/18 23:41 01/31/18 23:41 01/31/18 23:41 - Physical Exam Comments: 02/01/18 01:05 GENERAL: Awake, alert, and fully oriented, in no acute distress HEAD: No signs of trauma EYES: PERRLA, EOMI, sclera anicteric, conjunctiva clear ENT: Auricles normal inspection, hearing grossly normal, nares patent, oropharynx clear without exudates. Moist mucosa NECK: Normal ROM, supple, no lymphadenopathy, JVD, or masses LUNGS: +Tachypnea. Breath sounds equal, clear to auscultation bilaterally. No wheezes, and no crackles HEART: +Tachycardia. +Systolic ejection murmur. Regular rhythm, normal S1 and S2. ABDOMEN: +Moderate tenderness to periumbilical region and right lower quadrant. No guarding, no rebound. Soft. EXTREMITIES: +AV fistula on the left upper extremity with a bruits and thrill. Normal range of motion, no edema. No clubbing or cyanosis. No cords, erythema, or tenderness NEUROLOGICAL: Cranial nerves II through XII grossly intact. Normal speech, normal gait SKIN: Warm, Dry, normal turgor, no rashes or lesions noted. <Benson Spencer - Last Filed: 02/01/18 01:03> - Vital Signs Last Vital Signs Temp Pulse Resp BP Pulse Ox 98.2 F 81 28 H 179/90 98 01/31/18 23:41 01/31/18 23:41 01/31/18 23:41 01/31/18 23:41 01/31/18 23:41 <Sylvia Norton - Last Filed: 02/01/18 01:58> ED Treatment Course - LABORATORY CBC & Chemistry Diagram: 02/01/18 00:30 02/01/18 00:30 - ADDITIONAL ORDERS Additional order review: 02/01/18 00:30 RBC 3.74 MCV 84.6 MCHC 32.9 RDW 15.4 MPV 10.4 Neutrophils % 70.3 Lymphocytes % 13.2 D Monocytes % 12.4 H Eosinophils % 3.5 D Basophils % 0.6 <Benson Spencer - Last Filed: 02/01/18 01:03> - LABORATORY CBC & Chemistry Diagram: 02/01/18 00:30 02/01/18 00:30 <Sylvia Norton - Last Filed: 02/01/18 01:58> Medical Decision Making - Medical Decision Making 02/01/18 00:59 a/p: 72yo female with 3 days of periumbilical RLQ pain concern for poss partial sbo vs appendicitis vs colitis -pt is esrd on hd m/w/f last bm tonight appears in pain will check labs, ekg, ct abd/pelvis, pt does not make urine will medicate for pain with morphine will monitor and reassess 02/01/18 01:57 normal wbc. chem pending cxr, ekg, ct pending pt will be signed out to the oncoming ED physician. <Sylvia Norton - Last Filed: 02/01/18 01:58> *DC/Admit/Observation/Transfer - Attestations Scribe Attestion: 02/01/18 01:10 Documentation prepared by Benson Spencer, acting as medical care evaluation specialist for Sylvia Norton DO. <Benson Spencer - Last Filed: 02/01/18 01:03> - Attestations Physician Attestion: 02/01/18 01:58 I, Dr. Sylvia Norton DO, attest that this document has been prepared under my direction and personally reviewed by me in its entirety. I further attest, that it accurately reflects all work, treatment, procedures and medical decision -making performed by me. <Sylvia Norton - Last Filed: 02/01/18 01:58> Diagnosis at time of Disposition: End stage renal disease, Abdominal pain - Referrals Referrals: Ken Burgos [Primary Care Provider] - - Patient Instructions - Post Discharge Activity
[2018-02-01] MEDS ORDERED: morphine CARPU-JECT 2 MG/1 ML DISP.SYRIN IVPUSH ONE (00:12)
[2018-02-01 00:41] LABS: BASO % 0.6 % (0-2.0); EOS % 3.5 % (0-4.5); HEMATOCRIT 31.7 % (32.4-45.2); HEMOGLOBIN 10.4 GM/dL (10.7-15.3); LYMPH % 13.2 % (8-40); MCH 27.8 pg (25.7-33.7); MCHC 32.9 g/dl (32.0-36.0); MEAN CELL VOLUME 84.6 fl (80-96); MEAN PLT VOLUME 10.4 fl (7.5-11.1); MONO % 12.4 % (3.8-10.2); NEUT % 70.3 % (42.8-82.8); PLATELET COUNT 164 K/MM3 (134-434); RBC 3.74 M/mm3 (3.60-5.2); RDW 15.4 % (11.6-15.6); WHITE BLOOD COUNT 8.1 K/mm3 (4.0-10.0)
[2018-02-01] MEDS ORDERED: morphine SULFATE 4 MG/ML VIAL ONE (01:38)
[2018-02-01 02:36] LABS: ALK PHOS 138 U/L (45-117); BILIRUBIN,TOTAL 0.4 mg/dL (0.2-1.0); TOT PROT 7.6 g/dl (6.4-8.2)
[2018-02-01 02:38] LABS: ANION GAP 15 (8-16); BLOOD UREA NITROGEN 41 mg/dL (7-18); CHLORIDE 97 mmol/L (98-107); CO2 29 mmol/L (21-32); CREATININE 5.7 mg/dL (0.55-1.02); GLUCOSE,RANDOM 199 mg/dL (74-106); POTASSIUM 4.5 mmol/L (3.5-5.1); SODIUM 141 mmol/L (136-145)
[2018-02-01 02:39] LABS: CALCIUM 8.7 mg/dL (8.5-10.1); MAGNESIUM 2.7 mg/dL (1.8-2.4); SGOT/AST 14 U/L (15-37); SGPT/ALT 20 U/L (12-78)
--- NOTE | 2018-02-01 06:14 | PDOC ---
*Physical Exam - Vital Signs Last Vital Signs Temp Pulse Resp BP Pulse Ox 98.7 F 89 18 150/79 99 02/01/18 04:23 02/01/18 04:23 02/01/18 04:23 02/01/18 04:23 02/01/18 04:23 ED Treatment Course - LABORATORY CBC & Chemistry Diagram: 02/01/18 00:30 02/01/18 01:23 - ADDITIONAL ORDERS Additional order review: Laboratory Results 02/01/18 02/01/18 02/01/18 01:23 00:30 00:30 Sodium 141 Cancelled Potassium 4.5 Cancelled Chloride 97 L Cancelled Carbon Dioxide 29 Cancelled Anion Gap 15 Cancelled BUN 41 H Cancelled Creatinine 5.7 H Cancelled Creat Clearance w eGFR 7.31 Cancelled Random Glucose 199 H Cancelled Lactic Acid 1.2 Calcium 8.7 Cancelled Magnesium 2.7 H Cancelled Total Bilirubin 0.4 D Cancelled AST 14 L Cancelled ALT 20 Cancelled Alkaline Phosphatase 138 H Cancelled Total Protein 7.6 Cancelled Albumin 4.0 Cancelled 02/01/18 00:30 RBC 3.74 MCV 84.6 MCHC 32.9 RDW 15.4 MPV 10.4 Neutrophils % 70.3 Lymphocytes % 13.2 D Monocytes % 12.4 H Eosinophils % 3.5 D Basophils % 0.6 - Medications Given in the ED: ED Medications Discontinued Medications Generic Name Dose Route Start Last Admin Trade Name Freq PRN Reason Stop Dose Admin Morphine Sulfate 2 mg 02/01/18 00:12 02/01/18 01:27 Morphine Injection - IVPUSH 02/01/18 00:13 2 mg ONCE ONE Administration *DC/Admit/Observation/Transfer Diagnosis at time of Disposition: End stage renal disease, Abdominal pain - Discharge Dispostion Disposition: HOME Condition at time of disposition: Improved Admit: No - Referrals Referrals: Ken Burgos [Primary Care Provider] - Isaiah Garcia MD [Staff Physician] - - Patient Instructions Printed Discharge Instructions: DI for Abdominal Pain-Adult Additional Instructions: Please return if any problems. Continue drinking plenty of fluids and follow up with your information services assistant Print Language: GREEK - Post Discharge Activity
[2018-02-01 06:31] VITALS: BP 189/85; PULSE 81; TEMP 98.9
--- NOTE | 2018-02-01 09:53 | EKG ---
Test Reason : Blood Pressure : / mmHG Vent. Rate : 076 BPM Atrial Rate : 076 BPM P-R Int : 198 ms QRS Dur : 138 ms QT Int : 434 ms P-R-T Axes : 050 -63 074 degrees QTc Int : 488 ms NORMAL SINUS RHYTHM RIGHT BUNDLE BRANCH BLOCK LEFT ANTERIOR FASCICULAR BLOCK BIFASCICULAR BLOCK MINIMAL VOLTAGE CRITERIA FOR LVH, MAY BE NORMAL VARIANT ABNORMAL ECG WHEN COMPARED WITH ECG OF 15-OCT-2017 21:42, QRS DURATION HAS INCREASED T WAVE INVERSION NOW EVIDENT IN ANTERIOR LEADS Confirmed by MARISA PATEL MD [id number]) on 02/01/2018 9:53:06 AM Referred By: Confirmed By:MARISA PATEL MD
== END 2018-02-01 06:47 | disposition home or self-care (01) ==
LOC: JER 23:10
PROC: 3E033NZ Introduction of Analgesics, Hypnotics, Sedatives into Peripheral Vein, Percutaneous Approach (ICD-10-PCS; principal; 2018-01-31)
DX: I13.2 Hypertensive heart and chronic kidney disease with heart failure and with stage 5 chronic kidney disease, or end stage renal disease (principal); E11.22 Type 2 diabetes mellitus with diabetic chronic kidney disease; N18.6 End stage renal disease; I50.9 Heart failure, unspecified; N17.8 Other acute kidney failure; Z99.2 Dependence on renal dialysis; Z79.84 Long term (current) use of oral hypoglycemic drugs; E78.00 Pure hypercholesterolemia, unspecified
CPT/HCPCS: 36415; 71045-TC-FY; 74176-TC; 80053; 83605; 83735; 85025; 93005; 93010; 99282-25

== ENCOUNTER 2018-02-10 15:29 | Emergency (ER) | payer OTHER ==
[2018-02-10 15:39] VITALS: BP 138/62; PULSE 71; TEMP 97.7; BMI 30.2
--- NOTE | 2018-02-10 16:16 | PDOC ---
History of Present Illness - General Chief Complaint: Injury Stated Complaint: FEET SWELLING, PAIN Time Seen by Provider: 02/10/18 16:09 History Source: Patient Exam Limitations: No Limitations - History of Present Illness Initial Comments: 02/10/18 16:24 Last week, patient tripped and fell inverting her seen by pre k teacher a few days ago, who did not feel there was any significant injury but foot pain and swelling has worsened since that time. No x-rays were taken. Daughter reports that patient has been walking and not resting foot Occurred: reports: last week Severity: reports: mild, moderate Pain Location: reports: lower extremity Method of Injury: Yes: fall Modifying Factors: improves with: None (right foot), cold therapy Loss of Consciousness: no loss of consciousness Associated Symptoms (Fall): denies symptoms Past History - Travel Traveled outside of the country in the last 30 days: No Close contact w/someone who was outside of country & ill: No - Past Medical History Allergies/Adverse Reactions: Allergies Allergy/AdvReac Type Severity Reaction Status Date / Time No Known Allergies Allergy Verified 02/10/18 15:38 Home Medications: Ambulatory Orders Losartan Potassium 100 mg PO DAILY 01/08/17 Nifedipine ER [Procardia XL -] 60 mg PO BID 01/08/17 Acetaminophen [Tylenol .Regular Strength -] 650 mg PO Q6H PRN tablet 10/25/17 Calcium Acetate [Phoslo -] 667 mg PO TIDCM #90 capsule 10/25/17 Glipizide 5 mg PO DAILY #30 tablet 10/25/17 Labetalol HCl [Normodyne -] 200 mg PO TID #90 tablet 10/25/17 Minoxidil [Loniten -] 10 mg PO HS #30 tablet 10/25/17 Pantoprazole Sodium [Protonix -] 40 mg PO DAILY #30 tablet.ec 10/25/17 Clotrimazole 45 gm TP BID #1 cream..g. 02/10/18 Anemia: Yes Asthma: No Cancer: No Cardiac Disorders: No CVA: No COPD: No CHF: Yes DVT: No Dementia: No Diabetes: Yes Dialysis: Yes GI Disorders: No Disorders: Yes (esrd, dialysis m/w/f) HTN: Yes Hypercholesterolemia: Yes Liver Disease: Yes Seizures: No Thyroid Disease: No - Surgical History Abdominal Surgery: Yes Appendectomy: No Cardiac Surgery: No Cholecystectomy: No Lung Surgery: No Neurologic Surgery: No Orthopedic Surgery: No - Immunization History Immunization Up to Date: Yes - Suicide/Smoking/Psychosocial Hx Smoking History: Never smoked Have you smoked in the past 12 months: No Number of Cigarettes Smoked Daily: 0 Information on smoking cessation initiated: No Hx Alcohol Use: No Drug/Substance Use Hx: No Substance Use Type: None Hx Substance Use Treatment: No Review of Systems - Review of Systems Able to Perform ROS?: Yes Is the patient limited Ghanaian proficient: Yes Constitutional: Yes: See HPI. No: Symptoms Reported, Malaise HEENTM: No: Symptoms Reported Musculoskeletal: Yes: Symptoms Reported, Joint Swelling, Joint Stiffness (right foot with lateral tendeness ) Integumentary: Yes: Symptoms Reported, See HPI, Bruising All Other Systems: Reviewed and Negative *Physical Exam - Vital Signs Last Vital Signs Temp Pulse Resp BP Pulse Ox 97.7 F 71 18 138/62 97 02/10/18 15:37 02/10/18 15:37 02/10/18 15:37 02/10/18 15:37 02/10/18 15:37 - Physical Exam General Appearance: Yes: Nourished, Appropriately Dressed, Apparent Distress, Mild Distress HEENT: positive: MARA, TMs Normal Neck: negative: Tender Musculoskeletal: positive: Normal Inspection Extremity: positive: Swelling. negative: Normal Capillary Refill, Normal Inspection, Normal Range of Motion (painful for flexion and extension to toes and painful lateral aspect midfoot, + 5th metatarsal pain. ) Integumentary: positive: Normal Color, Ecchymosis, Bruising, Other (patient with white exudative drainage between toes 34 and 5 of right foot with some tenderness. No fissures noted, no true cellulitis noted. Appears consistent with an early tinea pedis infection.) Neurologic: positive: strategic intelligence officer II-XII NML intact, Fully Oriented, Alert, Normal Mood/ Affect, Motor Strength 5/5 Progress Note - Progress Note Progress Note: Fifth metatarsal fracture, healing and nondisplaced. Foot was Ron wrapped and placed in cast shoe. Patient already walks with walker and encouraged to avoid any extra activity, elevate foot, and may use ice packs for swelling and pain relief. Also noted tinea pedis and prescribed clotrimazole cream twice a day. Also instructed family members to watch carefully for any changes or worsening infection and indications of bacterial changes with fever, redness, any worsened pain as patient has diabetes and is a renal dialysis patient and infection could be disastrous. *DC/Admit/Observation/Transfer Diagnosis at time of Disposition: Tinea pedis, right Fracture of fifth metatarsal bone of right foot Qualifiers: Encounter type: initial encounter Fracture type: closed Fracture alignment: nondisplaced Qualified Code(s): S92.354A - Nondisplaced fracture of fifth metatarsal bone, right foot, initial encounter for closed fracture - Discharge Dispostion Disposition: HOME Condition at time of disposition: Stable Admit: No - Prescriptions Prescriptions: Clotrimazole 45 gm TP BID #1 cream..g. - Referrals Referrals: Ken Burgos [Primary Care Provider] - Talib Pond MD [Staff Physician] - - Patient Instructions Printed Discharge Instructions: DI for Foot Fracture, DI for Athlete's Foot Additional Instructions: Rest, ice to area on and off for 15 minutes 4-6 times a day Avoid heavy lifting or exercise until pain and swelling is resolved or until further directed Keep area highly elevated to reduce swelling Use splints/Ron wrap as directed Followup with orthopedist in one to 2 days if not improving, if significantly improved may wait one week for followup with orthopedist May use Tylenol pain and swelling Fungal infection of toes, apply tremors all cream twice daily, and keeping foot clean and dry as possible, highly elevated and watching closely for any changes or worsening of infection, redness, pain or evidence of bacterial infection. Will need follow-up with pre k teacher/foot Dr. in next 2-3 days - Post Discharge Activity
== END 2018-02-10 17:08 | disposition home or self-care (01) ==
LOC: JERFT 15:29
DX: S92.354A Nondisplaced fracture of fifth metatarsal bone, right foot, initial encounter for closed fracture (principal); W19.XXXA Unspecified fall, initial encounter; Y93.89 Activity, other specified; Y92.89 Other specified places as the place of occurrence of the external cause; Y99.8 Other external cause status; I12.0 Hypertensive chronic kidney disease with stage 5 chronic kidney disease or end stage renal disease; E11.22 Type 2 diabetes mellitus with diabetic chronic kidney disease; N18.6 End stage renal disease; N17.8 Other acute kidney failure; Z99.2 Dependence on renal dialysis; Z79.84 Long term (current) use of oral hypoglycemic drugs; K76.9 Liver disease, unspecified
CPT/HCPCS: 73630-TC-RT-FY; 99281-25

== ENCOUNTER 2018-02-11 18:40 | Emergency (ER) | payer OTHER ==
[2018-02-11 19:10] VITALS: BP 136/55; PULSE 75; TEMP 98.4; BMI 30.2
--- NOTE | 2018-02-11 22:47 | PDOC ---
History of Present Illness - General Chief Complaint: Pain Stated Complaint: PAIN Time Seen by Provider: 02/11/18 22:05 - History of Present Illness Initial Comments: 02/11/18 22:41 "The patient is a 72 year old female with a significant PMH of ESRD (dialysis M /W/F), congestive heart failure, hypertension, hyperlipidemia, diabetes mellitus who presents to the emergency department with persistent right foot pain. The patient states she tripped approximately one week ago but didn't develop pain in her R foot until a few days ago. Pt was seen in this ED yesterday and diagnosed with possible non-displaced 5th metatarsal fx. Patient' s foot was sabrina wrapped, placed in a hard sole shoe, and pt was instructed to take tylenol and f/u with ortho. Patient returns today complaining of continued pain in the R foot. Denies any new or worsening pain. Denies any new swelling or redness. She denies recent fevers, headache or dizziness. She denies recent nausea, vomit , diarrhea or constipation. She denies recent dysuria, frequency, urgency or hematuria. She denies recent chest pain or shortness of breath. Allergies: NKA Primary Care Physician: Dr. Burgos [place] Deputy: Dr. Sobeida Chavez " Past History - Past Medical History Allergies/Adverse Reactions: Allergies Allergy/AdvReac Type Severity Reaction Status Date / Time No Known Allergies Allergy Verified 02/11/18 19:10 Home Medications: Ambulatory Orders Losartan Potassium 100 mg PO DAILY 01/08/17 Acetaminophen [Tylenol .Regular Strength -] 650 mg PO Q6H PRN tablet 10/25/17 Glipizide 5 mg PO DAILY #30 tablet 10/25/17 Labetalol HCl [Normodyne -] 200 mg PO TID #90 tablet 10/25/17 Minoxidil [Loniten -] 10 mg PO HS #30 tablet 10/25/17 Pantoprazole Sodium [Protonix -] 40 mg PO DAILY #30 tablet.ec 10/25/17 Atorvastatin Ca [Lipitor] 10 mg PO HS 02/11/18 Clonidine HCl 0.1 mg PO Q8H 02/11/18 Doxazosin Mesylate [Cardura -] 1 mg PO DAILY 02/11/18 Ferric Citrate [Auryxia] 210 mg PO TID 02/11/18 Nifedipine [Nifedipine ER] 60 mg PO BID 02/11/18 Oxycodone HCl/Acetaminophen [Percocet 5-325 mg Tablet] 1 tab PO Q6H PRN #12 tablet MDD 4 tabs 02/11/18 Spironolactone [Aldactone] 25 mg PO BID 02/11/18 Anemia: Yes Asthma: No Cancer: No Cardiac Disorders: No CVA: No COPD: No CHF: Yes DVT: No Dementia: No Diabetes: Yes Dialysis: Yes GI Disorders: No Disorders: Yes (esrd, dialysis m/w/f) HTN: Yes Hypercholesterolemia: Yes Liver Disease: Yes Seizures: No Thyroid Disease: No - Surgical History Abdominal Surgery: Yes Appendectomy: No Cardiac Surgery: No Cholecystectomy: No Lung Surgery: No Neurologic Surgery: No Orthopedic Surgery: No - Immunization History Immunization Up to Date: Yes - Suicide/Smoking/Psychosocial Hx Smoking History: Never smoked Have you smoked in the past 12 months: No Number of Cigarettes Smoked Daily: 0 Information on smoking cessation initiated: No Hx Alcohol Use: No Drug/Substance Use Hx: No Substance Use Type: None Hx Substance Use Treatment: No Review of Systems - Review of Systems Comments:: 02/11/18 22:44 "GENERAL/CONSTITUTIONAL: No fever or chills. No weakness. HEAD, EYES, EARS, NOSE AND THROAT: No change in vision. No ear pain or discharge. No sore throat. CARDIOVASCULAR: No chest pain or shortness of breath. RESPIRATORY: No cough, wheezing, or hemoptysis. GASTROINTESTINAL: No nausea, vomiting, diarrhea or constipation. GENITOURINARY: No dysuria, frequency, or change in urination. MUSCULOSKELETAL: + R foot pain SKIN: No rash NEUROLOGIC: No headache, vertigo, loss of consciousness, or change in strength/ sensation. ENDOCRINE: No increased thirst. No abnormal weight change. HEMATOLOGIC/LYMPHATIC: No anemia, easy bleeding, or history of blood clots. ALLERGIC/IMMUNOLOGIC: No hives or skin allergy. " *Physical Exam - Vital Signs Last Vital Signs Temp Pulse Resp BP Pulse Ox 98.4 F 75 18 136/55 96 02/11/18 19:04 02/11/18 19:04 02/11/18 19:04 02/11/18 19:04 02/11/18 19:04 - Physical Exam Comments: 02/11/18 22:44 "GENERAL: Awake, alert, and fully oriented, in no acute distress. Generally weak appearing. HEAD: No signs of trauma EYES: PERRLA, EOMI, sclera anicteric, conjunctiva clear ENT: Auricles normal inspection, hearing grossly normal, nares patent, oropharynx clear without exudates. Moist mucosa NECK: Nontender, no stepoffs, Normal ROM, supple, no lymphadenopathy, JVD, or masses LUNGS: Breath sounds equal, clear to auscultation bilaterally. No wheezes, and no crackles HEART: Regular rate and rhythm, normal S1 and S2, no murmurs, rubs or gallops ABDOMEN: Soft, normoactive bowel sounds. No guarding, no rebound. No masses EXTREMITIES: R foot with no deformity, no joint effusions, no edema/erythema/ induration/fluctuance, mild tenderness over 5th MTP joint, no bony tenderness NEUROLOGICAL: Cranial nerves II through XII intact. 5/5 strength and sensation in all extremities, Normal speech, normal gait, normal cerebellar function SKIN: Warm, Dry, normal turgor, no rashes or lesions noted. " Medical Decision Making - Medical Decision Making 02/11/18 22:45 72 F with R foot pain not improved with tylenol. Was diagnosed with possible 5th metatarsal fx, but review of imaging today reveals no acute process. Pt without any bony tenderness on exam but mild tenderness over 5th MTP joint. Pt with no erythema or induration to suggest infectious process. ROM is not limited , no signs of septic arthritis. Possible gout vs arthritis. Could potentially be nondisplaced fx not visible on XR given pt's age and bone demineralization. - Pain control - F/u ortho Pt given 1 percocet, pain now well controlled. Pt is well appearing, with normal vitals. Clinically stable for DC at this time. I discussed the physical exam findings, ancillary test results and final diagnoses with the patient. I answered all of the patient's questions. The patient was satisfied with the care received and felt comfortable with the discharge plan and treatment plan. The patient agrees to follow up with ortho within 24-72 hours. *DC/Admit/Observation/Transfer Diagnosis at time of Disposition: Foot pain, right - Discharge Dispostion Disposition: HOME - Referrals Referrals: Talib Pond MD [Staff Physician] - - Patient Instructions Printed Discharge Instructions: DI for Foot Pain Additional Instructions: Take one percocet for pain every 8 hours, only as needed. Keep your foot in the splint at all times. Do not stand or walk on it. Follow up with an orthopedist within 48 hours for further evaluation. If you experience worsening pain, swelling, redness, or any other concerning symptoms, return to the ER immediately. Arispe un percocet para el dolor cada 8 horas, solo cuando sea necesario. Mantenga umanzor pie en la zapato especial todo el tiempo. No te pares o caminas sobre eso. Taiwo un seguimiento con un ortopedista dentro de las 48 horas para kat evaluacin adicional. Si experimenta un empeoramiento del dolor, hinchazn, enrojecimiento o cualquier otro sntoma preocupante, regrese a la chloe de urgencias inmediatamente. Print Language: GREEK - Post Discharge Activity - Attestations Physician Attestion: 02/11/18 22:53 I, Dr. Paul Ferreira MD, attest that this document has been prepared under my direction and personally reviewed by me in its entirety. I further attest, that it accurately reflects all work, treatment, procedures and medical decision -making performed by me.
== END 2018-02-12 01:32 | disposition home or self-care (01) ==
LOC: JER 18:40
DX: S99.921D Unspecified injury of right foot, subsequent encounter (principal); W01.0XXD Fall on same level from slipping, tripping and stumbling without subsequent striking against object, subsequent encounter; I13.2 Hypertensive heart and chronic kidney disease with heart failure and with stage 5 chronic kidney disease, or end stage renal disease; E11.22 Type 2 diabetes mellitus with diabetic chronic kidney disease; N18.6 End stage renal disease; I50.9 Heart failure, unspecified; N17.8 Other acute kidney failure; Z99.2 Dependence on renal dialysis; Z79.84 Long term (current) use of oral hypoglycemic drugs
CPT/HCPCS: 99281-25

== ENCOUNTER 2018-03-09 12:49 | Emergency (ER) | payer OTHER ==
[2018-03-09 12:54] VITALS: BMI 30.2
--- NOTE | 2018-03-09 13:02 | PDOC ---
History of Present Illness - General History Source: Patient, Family, Old Records Exam Limitations: No Limitations - History of Present Illness Initial Comments: 03/09/18 14:22 The patient is a 72 year old female presenting with her daughter, with a significant past medical history of HTN, HLD, CHF, DM, esrd, dialysis m/w/f, and liver disease, who presents to the emergency department complaining of bleeding from the site of her AV fistula on her left upper extremity that began today. She reports that she went to dialysis yesterday but when she was being transferred from her wheelchair her left arm was bumped, she felt discomfort at the site but was able to receive dialysis. She reports that she awoke with blood on her bed as she started bleeding from the site over night. Upon presentation the patient is bleeding slowly from the site and she has it bandaged. She also reports mild headache and dizziness. The patient denies chest pain, shortness of breath, fever, chills, nausea, vomiting, diarrhea and constipation. Denies dysuria, frequency, urgency and hematuria. Allergies: None Past surgical history: Left upper extremity AV shunt Social History: No alcohol, tobacco or drug use reported <Jad Ragsdale - Last Filed: 03/09/18 14:22> <Janki Blair - Last Filed: 03/09/18 16:51> - General Chief Complaint: AV shunt bleeding Stated Complaint: LT ARM BLEEDING Time Seen by Provider: 03/09/18 13:02 Past History <Jad Ragsdale - Last Filed: 03/09/18 14:22> - Past Medical History Anemia: Yes Asthma: No Cancer: No Cardiac Disorders: No CVA: No COPD: No CHF: Yes DVT: No Dementia: No Diabetes: Yes Dialysis: Yes GI Disorders: No Disorders: Yes (esrd, dialysis m/w/f) HTN: Yes Hypercholesterolemia: Yes Liver Disease: Yes Seizures: No Thyroid Disease: No - Surgical History Abdominal Surgery: Yes Appendectomy: No Cardiac Surgery: No Cholecystectomy: No Lung Surgery: No Neurologic Surgery: No Orthopedic Surgery: No - Immunization History Immunization Up to Date: Yes - Suicide/Smoking/Psychosocial Hx Smoking History: Never smoked Have you smoked in the past 12 months: No Number of Cigarettes Smoked Daily: 0 Hx Alcohol Use: No Drug/Substance Use Hx: No Substance Use Type: None Hx Substance Use Treatment: No <Janki Blair - Last Filed: 03/09/18 16:51> - Past Medical History Allergies/Adverse Reactions: Allergies Allergy/AdvReac Type Severity Reaction Status Date / Time No Known Allergies Allergy Verified 03/09/18 12:54 Home Medications: Ambulatory Orders Losartan Potassium 100 mg PO DAILY 01/08/17 Labetalol HCl [Normodyne -] 200 mg PO TID #90 tablet 10/25/17 Minoxidil [Loniten -] 10 mg PO HS #30 tablet 10/25/17 Nifedipine [Nifedipine ER] 60 mg PO BID 02/11/18 Aspirin [ASA -] 81 mg PO DAILY 03/09/18 Calcium Acetate [Phoslo -] 667 mg PO TID 03/09/18 Clopidogrel Bisulfate [Plavix] 75 mg PO DAILY 03/09/18 Docusate Sodium 100 mg PO HS 03/09/18 Gabapentin 100 mg PO HS 03/09/18 Insulin (Levemir) [Levemir Vial] 8 unit SQ AM 03/09/18 Insulin (Levemir) [Levemir Vial] 10 unit SQ HS 03/09/18 Oxycodone HCl/Acetaminophen [Percocet 5-325 mg Tablet] 2 tab PO Q6H PRN MDD 4 tabs 03/09/18 Pravastatin Sodium [Pravachol (Nf)] 20 mg PO HS 03/09/18 Review of Systems - Review of Systems Able to Perform ROS?: Yes Comments:: 03/09/18 14:23 GENERAL/CONSTITUTIONAL: No fever or chills. No weakness. HEAD, EYES, EARS, NOSE AND THROAT: No change in vision. No ear pain or discharge. No sore throat. CARDIOVASCULAR: No chest pain or shortness of breath RESPIRATORY: No cough, wheezing, or hemoptysis. GASTROINTESTINAL: No nausea, vomiting, diarrhea or constipation. GENITOURINARY: No dysuria, frequency, or change in urination. MUSCULOSKELETAL: No joint or muscle swelling or pain. No neck or back pain. EXTREMITIES: (+) Active bleeding at site of AV shunt on left upper extremity. SKIN: No rash NEUROLOGIC: (+) Headache and dizziness. No loss of consciousness, or change in strength/sensation. ENDOCRINE: No increased thirst. No abnormal weight change HEMATOLOGIC/LYMPHATIC: No anemia, easy bleeding, or history of blood clots. ALLERGIC/IMMUNOLOGIC: No hives or skin allergy. <Jad Ragsdale - Last Filed: 03/09/18 14:22> *Physical Exam - Vital Signs Last Vital Signs Temp Pulse Resp BP Pulse Ox 98.6 F 65 18 153/67 99 03/09/18 12:52 03/09/18 12:52 03/09/18 12:52 03/09/18 12:52 03/09/18 12:52 - Physical Exam Comments: 03/09/18 14:23 GENERAL: Awake, alert, and fully oriented, in no acute distress HEAD: No signs of trauma, normocephalic, atraumatic EYES: PERRLA, EOMI, sclera anicteric, conjunctiva clear ENT: Auricles normal inspection, hearing grossly normal, nares patent, oropharynx clear without exudates. Moist mucosa NECK: Normal ROM, supple, no lymphadenopathy, JVD, or masses LUNGS: No distress, speaks full sentences, clear to auscultation bilaterally HEART: Regular rate and rhythm, normal S1 and S2, no murmurs, rubs or gallops, peripheral pulses normal and equal bilaterally. ABDOMEN: Soft, nontender, normoactive bowel sounds. No guarding, no rebound. No masses EXTREMITIES: (+) Fistula has puncture wound with slight oozing, easily controlled with pressure. Thrill noted. Normal range of motion, no edema. No clubbing or cyanosis. NEUROLOGICAL: (+) Wheelchair bound. Cranial nerves II through XII grossly intact. Normal speech, no focal sensorimotor deficits SKIN: Warm, Dry, normal turgor, no rashes or lesions noted <Jad Ragsdale - Last Filed: 03/09/18 14:22> - Vital Signs Last Vital Signs Temp Pulse Resp BP Pulse Ox 98.6 F 65 18 153/67 99 03/09/18 12:52 03/09/18 12:52 03/09/18 12:52 03/09/18 12:52 03/09/18 12:52 <Janki Blair - Last Filed: 03/09/18 16:51> ED Treatment Course - LABORATORY CBC & Chemistry Diagram: 03/09/18 13:28 03/09/18 13:28 - ADDITIONAL ORDERS Additional order review: Laboratory Results 03/09/18 03/09/18 13:28 13:28 PT with INR 13.40 H INR 1.19 H PTT (Actin FS) 35.4 H Sodium 137 Potassium 4.5 Chloride 98 Carbon Dioxide 28 Anion Gap 11 BUN 25 H Creatinine 4.3 H Creat Clearance w eGFR 10.12 Random Glucose 189 H Calcium 9.0 Total Bilirubin 0.6 D AST 17 ALT 9 L Alkaline Phosphatase 108 Total Protein 7.5 Albumin 3.5 03/09/18 13:28 RBC 3.23 L MCV 85.2 MCHC 32.6 RDW 16.6 H MPV 8.4 D Neutrophils % 69.1 Lymphocytes % 15.1 Monocytes % 10.3 H Eosinophils % 4.3 Basophils % 1.2 <Jad Ragsdale - Last Filed: 03/09/18 14:22> - LABORATORY CBC & Chemistry Diagram: 03/09/18 13:28 03/09/18 13:28 <Janki Blair - Last Filed: 03/09/18 16:51> Medical Decision Making - Medical Decision Making 03/09/18 16:44 Pt presents to the ED complaining of bleeding from puncture wound on her AV fistula. Wound was mildly oozing on arrival to the ED. REsolved completely after 10 minutes of pressure. PAtient has been observed for several hours with no recurrent bleeding. + thrill in fistula. Labs and coags are within normal limits. Will discharge home. <Janki Blair - Last Filed: 03/09/18 16:51> *DC/Admit/Observation/Transfer - Attestations Scribe Attestion: 03/09/18 14:27 Documentation prepared by Jad Ragsdale, acting as biomedical service engineer for Janki Blair MD <Jad Ragsdale - Last Filed: 03/09/18 14:22> - Discharge Dispostion Admit: No <Janki Blair - Last Filed: 03/09/18 16:51> Diagnosis at time of Disposition: Bleeding from dialysis shunt Qualifiers: Encounter type: initial encounter Qualified Code(s): T82.838A - Hemorrhage due to vascular prosthetic devices, implants and grafts, initial encounter - Discharge Dispostion Disposition: HOME Condition at time of disposition: Good - Referrals Referrals: Ken Burgos [Primary Care Provider] - - Patient Instructions Printed Discharge Instructions: DI for Arteriovenous Fistula for Dialysis Additional Instructions: Return immediately to the ED for recurrent bleeding, passing out, chest pain or shortness of breath, other new or changing symptioms.
[2018-03-09 13:39] LABS: BASO % 1.2 % (0-2.0); EOS % 4.3 % (0-4.5); HEMATOCRIT 27.6 % (32.4-45.2); LYMPH % 15.1 % (8-40); MCH 27.8 pg (25.7-33.7); MCHC 32.6 g/dl (32.0-36.0); MEAN CELL VOLUME 85.2 fl (80-96); MEAN PLT VOLUME 8.4 fl (7.5-11.1); MONO % 10.3 % (3.8-10.2); NEUT % 69.1 % (42.8-82.8); PLATELET COUNT 188 K/MM3 (134-434); RBC 3.23 M/mm3 (3.60-5.2); RDW 16.6 % (11.6-15.6); WHITE BLOOD COUNT 5.8 K/mm3 (4.0-10.0)
[2018-03-09 13:59] LABS: INR 1.19 (0.82-1.09); PROTHROMBIN TIME (PATIENT) 13.4 SEC (9.7-13.0)
[2018-03-09 14:02] LABS: ACTIVATED PTT 35.4 SECONDS (26.9-34.4)
[2018-03-09 14:15] LABS: ALBUMIN 3.5 g/dl (3.4-5.0); ANION GAP 11 (8-16); BILIRUBIN,TOTAL 0.6 mg/dL (0.2-1.0); BLOOD UREA NITROGEN 25 mg/dL (7-18); CHLORIDE 98 mmol/L (98-107); CO2 28 mmol/L (21-32); CREATININE 4.3 mg/dL (0.55-1.02); GLUCOSE,RANDOM 189 mg/dL (74-106); POTASSIUM 4.5 mmol/L (3.5-5.1); SGOT/AST 17 U/L (15-37); SGPT/ALT 9 U/L (12-78); SODIUM 137 mmol/L (136-145); TOT PROT 7.5 g/dl (6.4-8.2)
[2018-03-09 14:16] LABS: ALK PHOS 108 U/L (45-117)
--- NOTE | 2018-03-09 14:30 | EKG ---
Test Reason : Blood Pressure : / mmHG Vent. Rate : 064 BPM Atrial Rate : 064 BPM P-R Int : 212 ms QRS Dur : 114 ms QT Int : 438 ms P-R-T Axes : 053 -50 079 degrees QTc Int : 451 ms SINUS RHYTHM WITH 1ST DEGREE A-V BLOCK PULMONARY DISEASE PATTERN INCOMPLETE RIGHT BUNDLE BRANCH BLOCK LEFT ANTERIOR FASCICULAR BLOCK MINIMAL VOLTAGE CRITERIA FOR LVH, MAY BE NORMAL VARIANT ABNORMAL ECG WHEN COMPARED WITH ECG OF 01-FEB-2018 03:08, INCOMPLETE RIGHT BUNDLE BRANCH BLOCK HAS REPLACED RIGHT BUNDLE BRANCH BLOCK Confirmed by MD Antonio, Cisco ([id number]) on 03/09/2018 2:30:04 PM Referred By: Confirmed By:Cisco Alvarez MD
[2018-03-09 16:16] VITALS: TEMP 98.8
[2018-03-09 18:04] VITALS: BP 149/89; PULSE 62
== END 2018-03-09 18:04 | disposition home or self-care (01) ==
LOC: JER 12:49
DX: T82.838A Hemorrhage due to vascular prosthetic devices, implants and grafts, initial encounter (principal); I13.2 Hypertensive heart and chronic kidney disease with heart failure and with stage 5 chronic kidney disease, or end stage renal disease; E11.22 Type 2 diabetes mellitus with diabetic chronic kidney disease; N18.6 End stage renal disease; I50.89 Other heart failure; N17.8 Other acute kidney failure; Z99.2 Dependence on renal dialysis; Z79.4 Long term (current) use of insulin
CPT/HCPCS: 36415; 80053; 85025; 85610; 85730; 86850; 86900; 86901; 93005; 93010; 99283-25

== ENCOUNTER 2018-04-15 00:29 | Inpatient (IN) | payer OTHER ==
[2018-04-15 00:35] VITALS: BMI 28.3
[2018-04-15 01:41] LABS: BASO % 0.8 % (0-2.0); HEMATOCRIT 28.7 % (32.4-45.2); HEMOGLOBIN 9.1 GM/dL (10.7-15.3); LYMPH % 5.8 % (8-40); MCH 26.4 pg (25.7-33.7); MCHC 31.7 g/dl (32.0-36.0); MEAN CELL VOLUME 83.1 fl (80-96); MEAN PLT VOLUME 8.7 fl (7.5-11.1); MONO % 7.9 % (3.8-10.2); NEUT % 81.5 % (42.8-82.8); PLATELET COUNT 236 K/MM3 (134-434); RBC 3.45 M/mm3 (3.60-5.2); RDW 17.4 % (11.6-15.6); WHITE BLOOD COUNT 11.1 K/mm3 (4.0-10.0)
[2018-04-15 01:55] LABS: INR 1.15 (0.82-1.09)
[2018-04-15 02:09] LABS: ALBUMIN 3.9 g/dl (3.4-5.0); ANION GAP 10 (8-16); BILIRUBIN,TOTAL 0.5 mg/dL (0.2-1.0); BLOOD UREA NITROGEN 61 mg/dL (7-18); CALCIUM 8.7 mg/dL (8.5-10.1); CHLORIDE 103 mmol/L (98-107); CO2 25 mmol/L (21-32); CREATININE 6.3 mg/dL (0.55-1.02); GLUCOSE,RANDOM 183 mg/dL (74-106); POTASSIUM 4.9 mmol/L (3.5-5.1); SGOT/AST 18 U/L (15-37); SGPT/ALT 29 U/L (12-78); SODIUM 138 mmol/L (136-145); TOT PROT 7.9 g/dl (6.4-8.2)
[2018-04-15 02:10] LABS: ALK PHOS 176 U/L (45-117)
--- NOTE | 2018-04-15 02:24 | PDOC ---
History of Present Illness - History of Present Illness Initial Comments: 04/15/18 02:42 The patient is a 72 year old female with past medical history of ESRD (dialysis M/W/F), congestive heart failure, hypertension, hyperlipidemia, diabetes mellitus presents to the emergency department with difficulty breathing. The patient has a AV fistula placed on the left upper extremity. Allergies: NKA Primary Care Physician: Dr. Burgos Diplomatic Interpreter/Translator: Dr. Sobeida Chavez <Eliana Don - Last Filed: 04/15/18 02:41> <Blessing Lovelace - Last Filed: 04/15/18 02:49> <Teri Faye - Last Filed: 04/15/18 05:15> - General Chief Complaint: Shortness of Breath Stated Complaint: DIFFICULTY BREATHING Time Seen by Provider: 04/15/18 00:55 Past History <Eliana Don - Last Filed: 04/15/18 02:41> - Past Medical History Anemia: Yes Asthma: No Cancer: No Cardiac Disorders: No CVA: No COPD: No CHF: Yes DVT: No Dementia: No Diabetes: Yes Dialysis: Yes GI Disorders: No Disorders: Yes (esrd, dialysis m/w/f) HTN: Yes Hypercholesterolemia: Yes Liver Disease: Yes Seizures: No Thyroid Disease: No - Surgical History Abdominal Surgery: Yes Appendectomy: No Cardiac Surgery: No Cholecystectomy: No Lung Surgery: No Neurologic Surgery: No Orthopedic Surgery: No - Immunization History Immunization Up to Date: Yes - Suicide/Smoking/Psychosocial Hx Smoking History: Never smoked Have you smoked in the past 12 months: No Number of Cigarettes Smoked Daily: 0 Information on smoking cessation initiated: No Hx Alcohol Use: No Drug/Substance Use Hx: No Substance Use Type: None Hx Substance Use Treatment: No <Blessing Lovelace - Last Filed: 04/15/18 02:49> <Teri Faye - Last Filed: 04/15/18 05:15> - Past Medical History Allergies/Adverse Reactions: Allergies Allergy/AdvReac Type Severity Reaction Status Date / Time No Known Allergies Allergy Verified 04/15/18 00:32 Home Medications: Ambulatory Orders Losartan Potassium 100 mg PO DAILY 01/08/17 Labetalol HCl [Normodyne -] 200 mg PO TID #90 tablet 10/25/17 Minoxidil [Loniten -] 10 mg PO HS #30 tablet 10/25/17 Nifedipine [Nifedipine ER] 60 mg PO BID 02/11/18 Aspirin [ASA -] 81 mg PO DAILY 03/09/18 Calcium Acetate [Phoslo -] 667 mg PO TID 03/09/18 Clopidogrel Bisulfate [Plavix] 75 mg PO DAILY 03/09/18 Docusate Sodium 100 mg PO HS 03/09/18 Gabapentin 100 mg PO HS 03/09/18 Insulin (Levemir) [Levemir Vial] 8 unit SQ AM 03/09/18 Insulin (Levemir) [Levemir Vial] 10 unit SQ HS 03/09/18 Oxycodone HCl/Acetaminophen [Percocet 5-325 mg Tablet] 2 tab PO Q6H PRN MDD 4 tabs 03/09/18 Pravastatin Sodium [Pravachol (Nf)] 20 mg PO HS 03/09/18 Respiratory Specific PMHX - Complaint Specific PMHX Angina: No Bronchitis: No Pneumonia: Yes Pulmonary Embolus: No TB (Tuberculosis): No <Blessing Lovelace - Last Filed: 04/15/18 02:49> Review of Systems - Review of Systems Able to Perform ROS?: Yes Comments:: 04/15/18 02:42 CONSTITUTIONAL: Absent: fever, chills, diaphoresis, generalized weakness, malaise, loss of appetite HEENT: Absent: rhinorrhea, nasal congestion, throat pain, throat swelling, difficulty swallowing, mouth swelling, ear pain, eye pain, visual Changes CARDIOVASCULAR: Absent: chest pain, syncope, palpitations, irregular heart rate, lightheadedness , peripheral edema RESPIRATORY: (+)difficulty breathing. Absent: cough, dyspnea with exertion, orthopnea, wheezing, stridor, hemoptysis GASTROINTESTINAL: Absent: abdominal pain, abdominal distension, nausea, vomiting, diarrhea, constipation, melena, hematochezia GENITOURINARY: Absent: dysuria, frequency, urgency, hesitancy, hematuria, flank pain, genital pain MUSCULOSKELETAL: Absent: myalgia, arthralgia, joint swelling SKIN: Absent: rash, itching, pallor HEMATOLOGIC/IMMUNOLOGIC: Absent: easy bleeding, easy bruising, lymphadenopathy, frequent infections ENDOCRINE: Absent: unexplained weight gain, unexplained weight loss, heat intolerance, cold intolerance NEUROLOGIC: Absent: headache, focal weakness or paresthesias, dizziness, unsteady gait, seizure, mental status changes, bladder or bowel incontinence PSYCHIATRIC: Absent: anxiety, depression, suicidal or homicidal ideation, hallucinations. <Eliana Don - Last Filed: 04/15/18 02:41> *Physical Exam - Vital Signs Last Vital Signs Temp Pulse Resp BP Pulse Ox 99.3 F 79 18 170/63 96 04/15/18 00:32 04/15/18 00:32 04/15/18 00:32 04/15/18 00:32 04/15/18 00:32 - Physical Exam Comments: 04/15/18 02:42 GENERAL: Well developed, well nourished. Awake and alert. No acute distress. HEENT: Normocephalic, atraumatic. PERRLA, EOMI. No conjunctival pallor. Sclera are non- icteric. Moist mucous membranes. Oropharynx is clear. NECK: Supple. Full ROM. No JVD. Carotid pulses 2+ and symmetric, without bruits. No thyromegaly. No lymphadenopathy. CARDIOVASCULAR: Regular rate and rhythm. No murmurs, rubs, or gallops. Distal pulses are 2+ and symmetric. PULMONARY: (+)Bibasilar rales. No wheezing or rhonchi ABDOMINAL: Soft. Non-tender. Non-distended. No rebound or guarding. No organomegaly. Normoactive bowel sounds. MUSCULOSKELETAL Normal range of motion at all joints. No bony deformities or tenderness. No CVA tenderness. EXTREMITIES: No cyanosis. No clubbing. No edema. No calf tenderness. SKIN: Warm and dry. Normal capillary refill. No rashes. No jaundice. NEUROLOGICAL: Alert, awake, appropriate. Cranial nerves 2-12 intact. No deficits to light touch and temperature in face, upper extremities and lower extremities. No motor deficits in the in face, upper extremities and lower extremities. Normoreflexic in the upper and lower extremities. Normal speech. Toes are down- going bilaterally. Gait is normal without ataxia. PSYCHIATRIC: Cooperative. Good eye contact. Appropriate mood and affect. <Eliana Don - Last Filed: 04/15/18 02:41> - Vital Signs Last Vital Signs Temp Pulse Resp BP Pulse Ox 99.3 F 79 18 170/63 96 04/15/18 00:32 04/15/18 00:32 04/15/18 00:32 04/15/18 00:32 04/15/18 00:32 <Blessing Lovelace - Last Filed: 04/15/18 02:49> - Vital Signs Last Vital Signs Temp Pulse Resp BP Pulse Ox 99.3 F 78 18 170/63 96 04/15/18 00:32 04/15/18 02:40 04/15/18 00:32 04/15/18 00:32 04/15/18 04:21 <Teri Faye - Last Filed: 04/15/18 05:15> ED Treatment Course - LABORATORY CBC & Chemistry Diagram: 04/15/18 01:30 04/15/18 01:30 - ADDITIONAL ORDERS Additional order review: Laboratory Results 04/15/18 04/15/18 04/15/18 01:30 01:30 01:30 PT with INR 13.00 INR 1.15 H Sodium Potassium Chloride Carbon Dioxide Anion Gap BUN Creatinine Creat Clearance w eGFR Random Glucose Calcium Total Bilirubin AST ALT Alkaline Phosphatase Troponin I 0.05 B-Natriuretic Peptide 74129.41 H Total Protein Albumin 04/15/18 01:30 PT with INR INR Sodium 138 Potassium 4.9 Chloride 103 Carbon Dioxide 25 Anion Gap 10 BUN 61 H Creatinine 6.3 H Creat Clearance w eGFR 6.52 Random Glucose 183 H Calcium 8.7 Total Bilirubin 0.5 AST 18 ALT 29 Alkaline Phosphatase 176 H Troponin I B-Natriuretic Peptide Total Protein 7.9 Albumin 3.9 04/15/18 01:30 RBC 3.45 L MCV 83.1 MCHC 31.7 L RDW 17.4 H MPV 8.7 Neutrophils % 81.5 Lymphocytes % 5.8 L D Monocytes % 7.9 Eosinophils % 4.0 Basophils % 0.8 <Eliana Don - Last Filed: 04/15/18 02:41> - LABORATORY CBC & Chemistry Diagram: 04/15/18 01:30 04/15/18 01:30 - ADDITIONAL ORDERS Additional order review: Laboratory Results 04/15/18 04/15/18 04/15/18 01:30 01:30 01:30 PT with INR 13.00 INR 1.15 H Sodium 138 Potassium 4.9 Chloride 103 Carbon Dioxide 25 Anion Gap 10 BUN 61 H Creatinine 6.3 H Creat Clearance w eGFR 6.52 Random Glucose 183 H Calcium 8.7 Total Bilirubin 0.5 AST 18 ALT 29 Alkaline Phosphatase 176 H Troponin I 0.05 Total Protein 7.9 Albumin 3.9 04/15/18 01:30 RBC 3.45 L MCV 83.1 MCHC 31.7 L RDW 17.4 H MPV 8.7 Neutrophils % 81.5 Lymphocytes % 5.8 L D Monocytes % 7.9 Eosinophils % 4.0 Basophils % 0.8 - RADIOLOGY Radiology Studies Ordered: Category Date Time Status CHEST X-RAY PORTABLE* [RAD] Stat Radiology 04/15/18 01:06 Taken <Blessing Lovelace - Last Filed: 04/15/18 02:49> - LABORATORY CBC & Chemistry Diagram: 04/15/18 01:30 04/15/18 01:30 - ADDITIONAL ORDERS Additional order review: Laboratory Results 04/15/18 04/15/18 04/15/18 01:30 01:30 01:30 PT with INR 13.00 INR 1.15 H Sodium Potassium Chloride Carbon Dioxide Anion Gap BUN Creatinine Creat Clearance w eGFR Random Glucose Calcium Total Bilirubin AST ALT Alkaline Phosphatase Troponin I 0.05 B-Natriuretic Peptide 04390.41 H Total Protein Albumin 04/15/18 01:30 PT with INR INR Sodium 138 Potassium 4.9 Chloride 103 Carbon Dioxide 25 Anion Gap 10 BUN 61 H Creatinine 6.3 H Creat Clearance w eGFR 6.52 Random Glucose 183 H Calcium 8.7 Total Bilirubin 0.5 AST 18 ALT 29 Alkaline Phosphatase 176 H Troponin I B-Natriuretic Peptide Total Protein 7.9 Albumin 3.9 04/15/18 01:30 RBC 3.45 L MCV 83.1 MCHC 31.7 L RDW 17.4 H MPV 8.7 Neutrophils % 81.5 Lymphocytes % 5.8 L D Monocytes % 7.9 Eosinophils % 4.0 Basophils % 0.8 - Medications Given in the ED: ED Medications Discontinued Medications Generic Name Dose Route Start Last Admin Trade Name Freq PRN Reason Stop Dose Admin Furosemide 100 mg 04/15/18 02:48 04/15/18 03:47 Lasix Injection - IVPUSH 04/15/18 02:49 100 mg ONCE STA Administration <Teri Faye - Last Filed: 04/15/18 05:15> Medical Decision Making - Medical Decision Making 04/15/18 02:[address] Sobeida Chavez states that sometimes this patient is to respond to high dose Lasix and requested I order Lasix [address] Chavez will arrange for her dialysis first thing in the morning 2. Potassium is normal at 4.9. Patient currently on BiPAP <Blessing Lovelace - Last Filed: 04/15/18 02:49> *DC/Admit/Observation/Transfer <Eliana Don - Last Filed: 04/15/18 02:41> <Blessing Lovelace - Last Filed: 04/15/18 02:49> - Discharge Dispostion Decision to Admit order: Yes <Teri Faye - Last Filed: 04/15/18 05:15> Diagnosis at time of Disposition: Shortness of breath, ESRD (end stage renal disease) on dialysis - Discharge Dispostion Condition at time of disposition: Guarded
[2018-04-15] MEDS ORDERED: FUROSEMIDE 40 MG/4 ML INJECTABLE VIAL IVPUSH STA (02:48)
--- NOTE | 2018-04-15 03:06 | HP ---
CHIEF COMPLAINT: SOB PCP: Dr. Burgos HISTORY OF PRESENT ILLNESS: 72 yo F w/ PMH of ESRD (dialysis MWF), CHF, HTN, DM2, who presents with worsening cough and SOB over the last two weeks. Pt endorses a productive cough that began two week ago and endorses progressive worsening SOB with activity and at baseline now. She also endorses anterior chest wall pain and upper back pain from persistent cough, in addition to increased edema in her legs BL. Pt does not take a diuretic at home, as she does not make urine from her kidneys. She receives dialysis MWF and was most recently dialyzed this past Sunday, two days ago, with no complications. No recent travel, sick contacts or diet changes. Last ECHO in 02/2017 (Ef 55%, mild MR/TR, mild pulm HTN). Pt denies f/c/n/v/d, ZENDEJAS, dizziness, chest tightness, ab pain, rashes, FNDs. Pt endorses anterior chest wall pain, productive cough, SOB and GLEASON, leg swelling and upper back pain. ER course was notable for: (1)BP 170/63 (2)WBC 11.1, Hgb 9.1, Cr. 6.3 (3)BNP ~70K, chest XR with BL congestion Recent Travel: None PAST MEDICAL HISTORY: Anemia CHF DM2 ESRD (MWF dialysis) HLD HTN PAST SURGICAL HISTORY: LUE AV shunt Social History: Smoking: No Alcohol: No Drugs: No Family History: NC Allergies No Known Allergies Allergy (Verified 04/15/18 00:32) HOME MEDICATIONS: Home Medications Medication Instructions Recorded Losartan Potassium 100 mg PO DAILY 01/08/17 Labetalol HCl [Normodyne -] 200 mg PO TID #90 tablet 10/25/17 Minoxidil [Loniten -] 10 mg PO HS #30 tablet 10/25/17 Nifedipine [Nifedipine ER] 60 mg PO BID 02/11/18 Aspirin [ASA -] 81 mg PO DAILY 03/09/18 Calcium Acetate [Phoslo -] 667 mg PO TID 03/09/18 Clopidogrel Bisulfate [Plavix] 75 mg PO DAILY 03/09/18 Docusate Sodium 100 mg PO HS 03/09/18 Gabapentin 100 mg PO HS 03/09/18 Insulin (Levemir) [Levemir Vial] 8 unit SQ AM 03/09/18 Insulin (Levemir) [Levemir Vial] 10 unit SQ HS 03/09/18 Oxycodone HCl/Acetaminophen 2 tab PO Q6H PRN MDD 4 tabs 03/09/18 [Percocet 5-325 mg Tablet] Pravastatin Sodium [Pravachol (Nf)] 20 mg PO HS 03/09/18 REVIEW OF SYSTEMS CONSTITUTIONAL: Absent: fever, chills, diaphoresis, generalized weakness, malaise, loss of appetite, weight change HEENT: Absent: rhinorrhea, nasal congestion, throat pain, throat swelling, difficulty swallowing, mouth swelling, ear pain, eye pain, visual changes CARDIOVASCULAR: chest pain, peripheral edema Absent: syncope, palpitations, irregular heart rate, lightheadedness, RESPIRATORY: cough, shortness of breath, dyspnea with exertion, Absent: orthopnea, wheezing, stridor, hemoptysis GASTROINTESTINAL: Absent: abdominal pain, abdominal distension, nausea, vomiting, diarrhea, constipation, melena, hematochezia GENITOURINARY: Absent: dysuria, frequency, urgency, hesitancy, hematuria, flank pain, genital pain MUSCULOSKELETAL: back pain, Absent: myalgia, arthralgia, joint swelling, neck pain SKIN: Absent: rash, itching, pallor HEMATOLOGIC/IMMUNOLOGIC: Absent: easy bleeding, easy bruising, lymphadenopathy, frequent infections ENDOCRINE: Absent: unexplained weight gain, unexplained weight loss, heat intolerance, cold intolerance NEUROLOGIC: Absent: headache, focal weakness or paresthesias, dizziness, unsteady gait, seizure, mental status changes, bladder or bowel incontinence PSYCHIATRIC: Absent: anxiety, depression, suicidal or homicidal ideation, hallucinations. PHYSICAL EXAMINATION Vital Signs - 24 hr 04/15/18 04/15/18 00:32 02:40 Temperature 99.3 F Pulse Rate 79 78 Respiratory 18 Rate Blood Pressure 170/63 O2 Sat by Pulse 96 98 Oximetry (%) GENERAL: Elderly woman, Awake, alert, and fully oriented, in NAD, on bipap HEAD: Normal with no signs of trauma. EYES: Pupils equal, round and reactive to light, extraocular movements intact, sclera anicteric, conjunctiva clear. No lid lag. EARS, NOSE, THROAT: Ears normal, nares patent, oropharynx clear without exudates. Moist mucous membranes. NECK: Normal range of motion, supple without lymphadenopathy, JVD, or masses. LUNGS: Bibasilar crackles, R>L. expiratory rhonchi noted at R lung base. No wheezes.No accessory muscle use. HEART: Distant heart sounds. Regular rate and rhythm, normal S1 and S2 without murmur, rub or gallop. ABDOMEN: TTP in epigastrium. Soft, not distended, normoactive bowel sounds, no guarding, no rebound, no masses. No hepatomegaly or splenomegaly. No CVA tenderness. MUSCULOSKELETAL: Normal range of motion at all joints. No bony deformities or tenderness. No CVA tenderness. UPPER EXTREMITIES: 2+ pulses, warm, well-perfused. No cyanosis. No clubbing. No peripheral edema. LOWER EXTREMITIES: 2+ pulses, warm, well-perfused. No calf tenderness. 2+ pitting edema BL in lower extremities to midshank. NEUROLOGICAL: Cranial nerves II-XII intact. Normal speech. Normal gait. PSYCHIATRIC: Cooperative. Good eye contact. Appropriate mood and affect. SKIN: Warm, dry, normal turgor, no rashes or lesions noted, normal capillary refill. Laboratory Results - last 24 hr CBC, BMP 04/15/18 01:30 04/15/18 01:30 04/15/18 04/15/18 04/15/18 01:30 01:30 01:30 WBC 11.1 H D RBC 3.45 L Hgb 9.1 L Hct 28.7 L MCV 83.1 MCH 26.4 MCHC 31.7 L RDW 17.4 H Plt Count 236 D MPV 8.7 Absolute Neuts (auto) 9.1 Neutrophils % 81.5 Lymphocytes % 5.8 L D Monocytes % 7.9 Eosinophils % 4.0 Basophils % 0.8 Nucleated RBC % 0 PT with INR INR Sodium 138 Potassium 4.9 Chloride 103 Carbon Dioxide 25 Anion Gap 10 BUN 61 H Creatinine 6.3 H Creat Clearance w eGFR 6.52 Random Glucose 183 H Calcium 8.7 Total Bilirubin 0.5 AST 18 ALT 29 Alkaline Phosphatase 176 H Troponin I B-Natriuretic Peptide 17641.41 H Total Protein 7.9 Albumin 3.9 04/15/18 04/15/18 01:30 01:30 WBC RBC Hgb Hct MCV MCH MCHC RDW Plt Count MPV Absolute Neuts (auto) Neutrophils % Lymphocytes % Monocytes % Eosinophils % Basophils % Nucleated RBC % PT with INR 13.00 INR 1.15 H Sodium Potassium Chloride Carbon Dioxide Anion Gap BUN Creatinine Creat Clearance w eGFR Random Glucose Calcium Total Bilirubin AST ALT Alkaline Phosphatase Troponin I 0.05 B-Natriuretic Peptide Total Protein Albumin Imaging: BL congestive changes, R>L. EKG NSR 79, LAD, regular rate, qtc 451, LAF, no st or tw changes. ASSESSMENT/PLAN: 72 yo woman with pmh of ESRD, CHF, DM2, HTN who presents to ED with two weeks of worsening productive cough, SOB and LE edema. Physical exam notable for bibasilar crackles, LE edema. Labs notable for Cr 6.3, Hgb 9.1, and WBC of 1.1, with BNP ~70K. Imaging notable for BL vascular congestion, BL blunting of costophrenic angles and possible retrocardiac consolidation. #SOB - Likely secondary to CHF/volume overload and/or CAP given elevated BNP and WBC w/ productive cough - Blood cultures, sputum cultures - rocephin/aza - daily weights - high dose lasix 100mg IV -trend fever, wbc curve - repeat ECHO - will require outpt cardiac f/u - Bipap for O2 support - F/u ABG results #ESRD - Dialysis MWF, Cr 6.3 this admission; no other lyte abnormalities - Renal consult - Dialysis tomorrow AM - Will require multiple liters fluid removal with dialysis - Post dialysis labs - Daily BMP - Avoid nephrotoxic agents #Diastolic CHF - 02/2017 echo w/ EF 55%, normal LV function/size - Repeat echo - Low sodium diet - limit fluids <2L - daily weights - serial CXRs #HTN - c/w home htn meds #Anemia - chronically 9-10; likely secondary to ESRD - Transfuse at <7 - send iron studies - consider EPO as outpt - FOBT #HLD - c/w home statin PPX HSQ FEN PO fluids <2L daily lytes Diabetic diet/ low sodium diet Pt will require med rec in AM! Plan discussed with attending, Dr. Alberto Gaytan, PGY1 Visit type - Emergency Visit Emergency Visit: Yes ED Registration Date: 04/15/18 Care time: The patient presented to the Emergency Department on the above date and was hospitalized for further evaluation of their emergent condition. - New Patient This patient is new to me today: Yes Date on this admission: 04/16/18 - Critical Care Critical Care patient: No Hospitalist Screening - Colonoscopy Questionnaire Colonoscopy Questionnaire: Colonoscopy Questionnaire - Patient: 50 - 75 years old and never had a screening colonoscopy: Unknown History of colon or rectal polyps, or CA: Unknown History of IBD, Crohn's disease or UC: Unknown History of abdominal radiation therapy as a child: Unknown - Relative: 1 with colon or rectal CA, or polyps at age 60 or younger: Unknown Colon or rectal CA diagnosed at age 45 or younger: Unknown Multiple relatives with colon or rectal CA: Unknown - Outcome: Screening Result: Negative Screen
[2018-04-15] MEDS ORDERED: FUROSEMIDE 40 MG/4 ML INJECTABLE VIAL ONE (03:46)
--- NOTE | 2018-04-15 04:18 | PN ---
Teaching Attending Note Name of Resident: Frank Gaytan ATTENDING PHYSICIAN STATEMENT I saw and evaluated the patient. I reviewed the resident's note and discussed the case with the resident. I agree with the resident's findings and plan as documented. SUBJECTIVE: Patient is a 72 year old woman history of ESRD (dialysis M/W/F) last dialyzed 2 days ago, congestive heart failure, hypertension, hyperlipidemia, diabetes mellitus presenting with progressive SOB and cough for two weeks. She has yellowish sputum and pleuritic epigastric and upper back pain from persistent coughing. Denies nausea, vomiting, fever or chills. OBJECTIVE: Alert and in respiratory distress on BiPAP Vital Signs Period Temp Pulse Resp BP Sys/Parker Pulse Ox Last 24 Hr 99.3 F 78-79 18 170/63 96-98 HEENT: No Jaundice, eye redness or discharge, PERRLA, EOMI. Normocephalic, atraumatic. External ears are normal and hearing is grossly intact. No nasal discharge. Neck: Supple, nontender. No palpable adenopathy or thyromegaly. No JVD Chest: Good effort. Bibasilar rales. Clear to percussion. Heart: Regular. No S3, rub or murmur Abdomen: Not distended, soft, epigastric tenderness; no HSM. No rebound or guarding. Normoactive bowel sounds. Ext: Peripheral pulses intact. left upper arm AV fistula with thrill and bruit. Bilateral leg edema. Skin: Warm and dry. No petechiae, rash or ecchymosis. Neuro: Alert. Oriented x3. CN 2-12 grossly intact. Sensation grossly intact in all four extremities and DTR are symmetric. Home Medications Medication Instructions Recorded Losartan Potassium 100 mg PO DAILY 01/08/17 Labetalol HCl [Normodyne -] 200 mg PO TID #90 tablet 10/25/17 Minoxidil [Loniten -] 10 mg PO HS #30 tablet 10/25/17 Nifedipine [Nifedipine ER] 60 mg PO BID 02/11/18 Aspirin [ASA -] 81 mg PO DAILY 03/09/18 Calcium Acetate [Phoslo -] 667 mg PO TID 03/09/18 Clopidogrel Bisulfate [Plavix] 75 mg PO DAILY 03/09/18 Docusate Sodium 100 mg PO HS 03/09/18 Gabapentin 100 mg PO HS 03/09/18 Insulin (Levemir) [Levemir Vial] 8 unit SQ AM 03/09/18 Insulin (Levemir) [Levemir Vial] 10 unit SQ HS 03/09/18 Oxycodone HCl/Acetaminophen 2 tab PO Q6H PRN MDD 4 tabs 03/09/18 [Percocet 5-325 mg Tablet] Pravastatin Sodium [Pravachol (Nf)] 20 mg PO HS 03/09/18 ASSESSMENT AND PLAN: 1. Fluid overload - This patient with ESRD and CHF will benefit from sequential increase in dialytic fluid removal to mobilize excess fluid and improve cardiac function. Adequate ongoing dialysis fluid removal - even if she has to be dialyzed 4 times a week - will also improve hypertension so she may be weaned off some of her antihypertensive drugs. Obtain leg doppler. She will need an ECHO after adequate dialysis fluid removal. If he her respiratory function fails to improve after adequate fluid removal, then a VQ scan should be done to rule out PE. CXR shows pulmonary congestion, cardiomegaly and possible RLL infiltrate. EKG does not show any significant ST-T wave changes. 2. Pneumonia - In view of yellowish sputum, leukocytosis and CXR that shows possible RLL infiltrate with the pulmonary edema, we will treat her for pneumonia. Though she is technically "healthcare-associated pneumonia", but because she is not toxic, we will use IV Rocephin and Azithromycin rather than the triple regimen. 3. DM - Continue sliding scale insulin coverage. 4. DVT prophylaxis - Heparin 5000u sq tid 5. Advance directives - Full code
[2018-04-15] MEDS ORDERED: CEFTRIAXONE 1 GM in DEXTROSE 5%-WATER - 50 ML IVPB ONE (04:29)
[2018-04-15] MEDS ORDERED: AZITHROMYCIN IVPB 500 MG in DEXTROSE 5%-WATER - 250 ML IVPB ONE (04:29)
[2018-04-15 04:44] LABS: ARTERIAL BLD GAS O2 SATURATION 97.3 % (90-98.9); ARTERIAL BLOOD GAS BASE EXCESS -2.4 meq/l (-2-2); ARTERIAL BLOOD GAS PCO2 40.8 mmHg (35-45); ARTERIAL BLOOD GAS PO2 91.8 mmHg (70-100); ARTERIAL BLOOD GAS pH 7.36 (7.35-7.45)
[2018-04-15 04:47] LABS: ALLENS TEST POSITIVE
[2018-04-15] MEDS ORDERED: AZITHROMYCIN IVPB 250 ML IVPB ONE (05:26)
[2018-04-15] MEDS ORDERED: CEFTRIAXONE 1 GM/50 ML BAG ONE (05:27)
[2018-04-15] MEDS ORDERED: HEPARIN NA (PORCINE) 5,000 UNITS/ML 1ML VIAL ONE (05:27)
[2018-04-15] MEDS: HEPARIN NA (PORCINE) 5,000 UNITS/ML 1ML VIAL SQ SCH ×3 (06:00→21:21)
[2018-04-15 06:16] LABS: BASO % 0.7 % (0-2.0); EOS % 2.9 % (0-4.5); HEMATOCRIT 27.6 % (32.4-45.2); HEMOGLOBIN 8.8 GM/dL (10.7-15.3); MCH 26.5 pg (25.7-33.7); MCHC 31.7 g/dl (32.0-36.0); MEAN CELL VOLUME 83.5 fl (80-96); MEAN PLT VOLUME 8.3 fl (7.5-11.1); MONO % 8.2 % (3.8-10.2); NEUT % 82.2 % (42.8-82.8); PLATELET COUNT 206 K/MM3 (134-434); RBC 3.31 M/mm3 (3.60-5.2); WHITE BLOOD COUNT 11.1 K/mm3 (4.0-10.0)
[2018-04-15 07:02] LABS: INR 1.15 (0.82-1.09)
[2018-04-15 07:25] LABS: ALBUMIN 3.9 g/dl (3.4-5.0); ANION GAP 12 (8-16); BILIRUBIN,TOTAL 0.5 mg/dL (0.2-1.0); BLOOD UREA NITROGEN 67 mg/dL (7-18); CALCIUM 8.5 mg/dL (8.5-10.1); CHLORIDE 102 mmol/L (98-107); CO2 23 mmol/L (21-32); CREATININE 6.7 mg/dL (0.55-1.02); GLUCOSE,RANDOM 215 mg/dL (74-106); MAGNESIUM 2.4 mg/dL (1.8-2.4); PHOSPHOROUS 5.1 mg/dL (2.5-4.9); SGOT/AST 17 U/L (15-37); SGPT/ALT 23 U/L (12-78); SODIUM 137 mmol/L (136-145); TOT PROT 7.7 g/dl (6.4-8.2)
[2018-04-15 07:28] LABS: ALK PHOS 177 U/L (45-117)
--- NOTE | 2018-04-15 08:45 | EKG ---
Test Reason : Blood Pressure : / mmHG Vent. Rate : 079 BPM Atrial Rate : 079 BPM P-R Int : 190 ms QRS Dur : 106 ms QT Int : 398 ms P-R-T Axes : 046 -49 081 degrees QTc Int : 456 ms NORMAL SINUS RHYTHM POSSIBLE LEFT ATRIAL ENLARGEMENT LEFT ANTERIOR FASCICULAR BLOCK ABNORMAL ECG WHEN COMPARED WITH ECG OF 09-MAR-2018 13:41, INCOMPLETE RIGHT BUNDLE BRANCH BLOCK IS NO LONGER PRESENT Confirmed by STEFANY JIMÉNEZ MD ([id number] on 04/15/2018 8:44:51 AM Referred By: Confirmed By:STEFANY JIMÉNEZ MD
--- NOTE | 2018-04-15 10:14 | CONSULT ---
Consult Consult Specialty:: Nephrology ( Scott/ Martir) Reason for Consultation:: The patient with ESRD, on HD admitted with acute CHF - History of Present Illness Chief Complaint: Difficulty to breathe History of Present Illness: 72 yo F w/ PMH of ESRD (dialysis MWF) at [facility] dialysis unit, CHF , HTN, DM2, who presents with worsening cough and SOB over the last two weeks. Pt has a productive cough that began two week ago and worsening SOB with activity. She also had anterior chest wall pain and upper back pain from persistent cough , in addition to increased edema in her legs BL. She has ESRD, and she receives dialysis MWF and was most recently dialyzed this past Sunday with no complications. No recent travel, sick contacts or diet changes. 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) Cardio/Vascular: Yes: AFIB, CHF (chronic diastolic), HTN, Hyperlipdemia Renal/: Yes: Renal Failure, Hemodialysis Musculoskeletal: Yes: Chronic low back pain Endocrine: Yes: Diabetes Mellitus - Past Surgical History Past Surgical History: Yes: AV Fistula/Graft - Alcohol/Substance Use Hx Alcohol Use: No History of Substance Use: reports: None - Smoking History Smoking history: Never smoked Have you smoked in the past 12 months: No Aproximately how many cigarettes per day: 0 - Social History ADL: Independent History of Recent Travel: No Home Medications - Allergies Allergies/Adverse Reactions: Allergies Allergy/AdvReac Type Severity Reaction Status Date / Time No Known Allergies Allergy Verified 04/15/18 00:32 - Home Medications Home Medications: Ambulatory Orders Losartan Potassium 100 mg PO DAILY 01/08/17 Labetalol HCl [Normodyne -] 200 mg PO TID #90 tablet 10/25/17 Minoxidil [Loniten -] 10 mg PO HS #30 tablet 10/25/17 Nifedipine [Nifedipine ER] 60 mg PO BID 02/11/18 Aspirin [ASA -] 81 mg PO DAILY 03/09/18 Calcium Acetate [Phoslo -] 667 mg PO TID 03/09/18 Clopidogrel Bisulfate [Plavix] 75 mg PO DAILY 03/09/18 Docusate Sodium 100 mg PO HS 03/09/18 Gabapentin 100 mg PO HS 03/09/18 Insulin (Levemir) [Levemir Vial] 8 unit SQ AM 03/09/18 Insulin (Levemir) [Levemir Vial] 10 unit SQ HS 03/09/18 Oxycodone HCl/Acetaminophen [Percocet 5-325 mg Tablet] 2 tab PO Q6H PRN MDD 4 tabs 03/09/18 Pravastatin Sodium [Pravachol (Nf)] 20 mg PO HS 03/09/18 Review of Systems - Review of Systems Constitutional: reports: Malaise, Weakness Neck: denies: Pain on Movement, Stiffness Cardiovascular: reports: Chest Pain, Shortness of Breath Respiratory: reports: Orthopnea, SOB, SOB on Exertion Gastrointestinal: denies: Abdominal Pain, Constipation, Diarrhea Genitourinary: reports: Other (The patient has very minimal urine output because of ESRD) Musculoskeletal: reports: Back Pain, Extremity Pain (Rt foot has some gangrenous changes) Neurological: denies: Seizure Physical Exam Vital Signs: Vital Signs Temperature 98 F 04/15/18 09:02 Pulse Rate 80 04/15/18 09:02 Respiratory Rate 22 04/15/18 09:02 Blood Pressure 143/81 04/15/18 09:02 O2 Sat by Pulse Oximetry (%) 98 04/15/18 09:02 Constitutional: Yes: Anxious, Moderate Distress, Pallor HENT: Yes: Normocephalic Neck: Yes: Trachea Midline Cardiovascular: Yes: S1, S2 Respiratory: Yes: CTA Bilaterally, Diminished, On BiPap, Rales Gastrointestinal: Yes: Normal Bowel Sounds, Soft Renal/: Yes: Anuria. No: CVA Tenderness - Left, CVA Tenderness - Right Extremities: Yes: Cool, Other (Rt foot gangrene) Edema: RLE: Trace Neurological: Yes: Alert, Oriented Labs: CBC, BMP 04/15/18 05:55 04/15/18 05:55 Problem List - Problems (1) Shortness of breath Code(s): R06.02 - SHORTNESS OF BREATH (2) ESRD (end stage renal disease) on dialysis Code(s): N18.6 - END STAGE RENAL DISEASE; Z99.2 - DEPENDENCE ON RENAL DIALYSIS (3) AV fistula Code(s): I77.0 - ARTERIOVENOUS FISTULA, ACQUIRED (4) Acute on chronic diastolic (congestive) heart failure Code(s): I50.33 - ACUTE ON CHRONIC DIASTOLIC (CONGESTIVE) HEART FAILURE (5) Anemia Code(s): D64.9 - ANEMIA, UNSPECIFIED Qualifiers: Anemia type: unspecified type Qualified Code(s): D64.9 - Anemia, unspecified (6) Bleeding from dialysis shunt Code(s): T82.838A - HEMORRHAGE DUE TO VASCULAR PROSTH DEV/GRFT, INIT Qualifiers: Encounter type: initial encounter Qualified Code(s): T82.838A - Hemorrhage due to vascular prosthetic devices, implants and grafts, initial encounter (7) Diabetes type 2, controlled Code(s): E11.9 - TYPE 2 DIABETES MELLITUS WITHOUT COMPLICATIONS Qualifiers: Diabetes mellitus complication status: with kidney complications Chronic kidney disease stage: stage 5, not on chronic dialysis (8) Foot pain, right Code(s): M79.671 - PAIN IN RIGHT FOOT (9) Paroxysmal atrial fibrillation Code(s): I48.0 - PAROXYSMAL ATRIAL FIBRILLATION (10) End stage renal disease Code(s): N18.6 - END STAGE RENAL DISEASE (11) Hypertension Code(s): I10 - ESSENTIAL (PRIMARY) HYPERTENSION Qualifiers: Hypertension type: essential hypertension Qualified Code(s): I10 - Essential (primary) hypertension (12) Congestive heart failure Code(s): I50.9 - HEART FAILURE, UNSPECIFIED Assessment/Plan 72 yo F w/ PMH of ESRD (dialysis MWF) at [facility] dialysis unit, CHF , HTN, DM2, who presents with worsening cough and SOB over the last two weeks. Pt has a productive cough that began two week ago and worsening SOB with activity. She also had anterior chest wall pain and upper back pain from persistent cough , in addition to increased edema in her legs BL. She has ESRD, and she receives dialysis MWF and was most recently dialyzed this past Sunday with no complications. Acute Congestive Heart failure in this 72 y/o female woth ESRD, and volume overload. The patient's last Hd was three days ago. Orders for HD written and reviewed with the HD nurse. To remove as much fluid as tolerated. The right foot gangrene is painful. ? Vascular evaluation. Needs optimization of BP control. Thank you. Will follow the patient with you. Sobeida Chavez MD
[2018-04-15] MEDS ORDERED: EPOETIN ALFA 10,000 UNIT/1 ML VIAL IVPUSH ONE (16:00)
[2018-04-15] MEDS ORDERED: LOSARTAN POTASSIUM 50 MG TABLET (FP) PO ONE (18:09)
[2018-04-15] MEDS ORDERED: PT OWN MED DRAWER 7, Y5N ONE (21:14)
[2018-04-15] MEDS: DOCUSATE SODIUM 100 MG CAPSULE (FP) PO SCH (21:21)
[2018-04-15] MEDS: ATORVASTATIN CA 10 MG TABLET (FP) PO SCH (21:21)
[2018-04-15] MEDS: GABAPENTIN 100 MG CAPSULE (FP) PO SCH (21:21)
[2018-04-15] MEDS: NIFEdipine E.R 60 MG TABLET (UD) PO SCH (21:29)
[2018-04-15] MEDS: LABETALOL HCL 200 MG TABLET (FP) PO SCH (21:29)
[2018-04-15] MEDS ORDERED: LABETALOL HCL 200 MG TABLET (FP) PO SCH (22:00)
[2018-04-15] MEDS ORDERED: PATIENT'S OWN MEDICATION (NON-FORMULARY) (Pravastatin Sodium 20 MG) PO SCH (22:00)
[2018-04-15] MEDS: MINOXIDIL 10 MG TABLET PO SCH (22:04)
[2018-04-16 06:06] LABS: SERUM IRON SATURATION 6 % (15-55); TOTAL IRON BINDING CAPACITY 213 ug/dL (250-450); UIBC 200 ug/dL (118-369)
[2018-04-16] MEDS: LABETALOL HCL 200 MG TABLET (FP) PO SCH ×3 (06:08→21:55)
[2018-04-16] MEDS: HEPARIN NA (PORCINE) 5,000 UNITS/ML 1ML VIAL SQ SCH ×3 (06:08→21:54)
--- NOTE | 2018-04-16 08:42 | CON.CARD ---
Consult Consult Specialty:: Cardiology Referred by:: Hospitalist Medicine Reason for Consultation:: Diastolic failure - History of Present Illness Chief Complaint: Dyspnea History of Present Illness: Patient is a 72 year old woman history of ESRD (dialysis M/W/F), diastolic heart failure, hypertension./HCVD, hyperlipidemia, diabetes mellitus presenting with progressive SOB with activity, orthopnea, bilateral lower extremity edema and cough for two weeks. She has yellowish sputum and pleuritic epigastric and upper back pain from persistent coughing. She reports compliance with diet, medications and HD. 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) Cardio/Vascular: Yes: AFIB, CHF (chronic diastolic), HTN, Hyperlipdemia Renal/: Yes: Renal Failure, Hemodialysis Musculoskeletal: Yes: Chronic low back pain Endocrine: Yes: Diabetes Mellitus - Past Surgical History Past Surgical History: Yes: AV Fistula/Graft - Alcohol/Substance Use Hx Alcohol Use: No History of Substance Use: reports: None - Smoking History Smoking history: Never smoked Have you smoked in the past 12 months: No Aproximately how many cigarettes per day: 0 - Social History ADL: Independent History of Recent Travel: No Home Medications - Allergies Allergies/Adverse Reactions: Allergies Allergy/AdvReac Type Severity Reaction Status Date / Time No Known Allergies Allergy Verified 04/15/18 00:32 - Home Medications Home Medications: Ambulatory Orders Losartan Potassium 100 mg PO DAILY 01/08/17 Labetalol HCl [Normodyne -] 200 mg PO TID #90 tablet 10/25/17 Minoxidil [Loniten -] 10 mg PO HS #30 tablet 10/25/17 Nifedipine [Nifedipine ER] 60 mg PO BID 02/11/18 Calcium Acetate [Phoslo -] 667 mg PO TID 03/09/18 Docusate Sodium 100 mg PO HS 03/09/18 Gabapentin 100 mg PO HS 03/09/18 Insulin (Levemir) [Levemir Vial] 8 unit SQ AM 03/09/18 Insulin (Levemir) [Levemir Vial] 10 unit SQ HS 03/09/18 Oxycodone HCl/Acetaminophen [Percocet 5-325 mg Tablet] 2 tab PO Q6H PRN MDD 4 tabs 03/09/18 Pravastatin Sodium [Pravachol (Nf)] 20 mg PO HS 03/09/18 Review of Systems - Review of Systems Respiratory: reports: Cough, Orthopnea, SOB on Exertion Vital Signs: Vital Signs Temperature 98.8 F 04/16/18 06:00 Pulse Rate 76 04/16/18 06:00 Respiratory Rate 20 04/16/18 06:00 Blood Pressure 143/56 04/16/18 06:00 O2 Sat by Pulse Oximetry (%) 95 04/16/18 03:00 Constitutional: Yes: No Distress, Calm Neck: Yes: Supple Respiratory: Yes: Regular, Diminished, On Nasal O2 Gastrointestinal: Yes: Normal Bowel Sounds, Soft, Abdomen, Obese Cardiovascular: Yes: Regular Rate and Rhythm JVD: No Carotid Bruit: No Heart Sounds: Yes: S1, S2 Murmur: Yes: Systolic Murmur, Grade 1 Edema: No - Other Data Labs, Other Data: CBC, BMP 04/15/18 05:55 04/15/18 05:55 INR, PTT INR 1.15 (0.82-1.09) H 04/15/18 05:55 Troponin, BNP 04/15/18 04/15/18 05:55 20:30 Troponin I 0.06 H 0.05 Troponin, BNP 04/15/18 04/15/18 05:55 20:30 Troponin I 0.06 H 0.05 NSR @ 79 LAD Echo: Report Reviewed Ejection Fraction %: LVEF > or = 40 % Imaging - Results Chest X-ray: Report Reviewed (Mild congestion with RUL infiltrate) Problem List - Problems (1) Shortness of breath Code(s): R06.02 - SHORTNESS OF BREATH (2) ESRD (end stage renal disease) on dialysis Code(s): N18.6 - END STAGE RENAL DISEASE; Z99.2 - DEPENDENCE ON RENAL DIALYSIS (3) Acute on chronic diastolic (congestive) heart failure Code(s): I50.33 - ACUTE ON CHRONIC DIASTOLIC (CONGESTIVE) HEART FAILURE (4) Diabetes type 2, controlled Code(s): E11.9 - TYPE 2 DIABETES MELLITUS WITHOUT COMPLICATIONS Qualifiers: Diabetes mellitus complication status: with kidney complications Chronic kidney disease stage: stage 5, not on chronic dialysis (5) Hypertensive urgency Code(s): I10 - ESSENTIAL (PRIMARY) HYPERTENSION (6) Anemia, chronic renal failure Code(s): N18.9 - CHRONIC KIDNEY DISEASE, UNSPECIFIED; D63.1 - ANEMIA IN CHRONIC KIDNEY DISEASE (7) Hyperlipidemia Code(s): E78.5 - HYPERLIPIDEMIA, UNSPECIFIED Qualifiers: Hyperlipidemia type: pure hypercholesterolemia Qualified Code(s): E78.00 - Pure hypercholesterolemia, unspecified; E78.0 - Pure hypercholesterolemia (8) Hypertensive renal disease Code(s): I12.9 - HYPERTENSIVE CHRONIC KIDNEY DISEASE W STG 1-4/UNSP CHR KDNY Assessment/Plan 04/15/2018 Mild cLVH, normal LV fxn, mild TR, tr AR 1. Acute on chonic diastolic failure in context of 2. Hypertensive urgency 3. RUL PNA 4. ESRD->HD MWF 5. Type 2 DM P:1. Volume removal via HD 2. Continue losartan 100 qd, labetolol 200 tid, Procardial XL 60 bid, pravachol 20 qhs, Minoxidil 10 qhs, resume ASA 81 qd 3. Complete empiric abx course 4. Emphasized importance of diet, medication and HD compliance 5. Thank you for consultative opportunity
[2018-04-16] MEDS: CALCIUM ACETATE 667 MG CAPSULE (FP) PO SCH ×3 (08:46→17:19)
[2018-04-16] MEDS: LOSARTAN POTASSIUM 50 MG TABLET (FP) PO SCH (09:06)
[2018-04-16] MEDS: NIFEdipine E.R 60 MG TABLET (UD) PO SCH ×2 (09:06→21:56)
[2018-04-16] MEDS ORDERED: PATIENT'S OWN MEDICATION (NON-FORMULARY) (Losartan Potassium [Losartan Potassium] 100 MG) PO SCH (10:00)
--- NOTE | 2018-04-16 10:36 | PN ---
Physical Exam: SUBJECTIVE: Patient seen and examined. She has throat pain and feels sob when she coughs in the morning. She is laying flat without over distress. Denies cp. OBJECTIVE: Vital Signs Period Temp Pulse Resp BP Sys/Parker Pulse Ox Last 24 Hr 97.8 F-100 F 67-97 16-20 136-198/56-90 94-97 PE Neuro: alert, awake, cn 2-12intact Pulm: basilar course, however clear, + cough + NC CV: s1 s2 rrr + 2/6 murmur Abd: s nt nd +bs Ext: warm, trace le edema , r foot ulcer 3rd toe open min bloody drainage + sensation discolored Laboratory Results - last 24 hr 04/15/18 04/15/18 04/15/18 05:55 05:55 05:55 Iron 13 L TIBC 213 L Iron Saturation 6 L Transferrin 166 L Ferritin 855.1 H Creatine Kinase Troponin I 04/15/18 20:30 Iron TIBC Iron Saturation Transferrin Ferritin Creatine Kinase 79 Troponin I 0.05 Active Medications Generic Name Dose Route Start Last Admin Trade Name Freq PRN Reason Stop Dose Admin Atorvastatin Calcium 10 mg 04/15/18 22:00 04/15/18 21:21 Lipitor - PO 10 mg HS KARINA Administration Calcium Acetate 667 mg 04/16/18 08:00 04/16/18 08:46 Phoslo - PO 667 mg TIDCM KARNIA Administration Docusate Sodium 100 mg 04/15/18 22:00 04/15/18 21:21 Colace - PO 100 mg HS KARINA Administration Gabapentin 100 mg 04/15/18 22:00 04/15/18 21:21 Neurontin - PO 100 mg HS KARINA Administration Guaifenesin 10 ml 04/16/18 10:24 Diabetic Tussin Dm - PO Q4H PRN COUGH Heparin Sodium (Porcine) 5,000 unit 04/15/18 06:00 04/16/18 06:08 Heparin - SQ 5,000 unit TID KARINA Administration Azithromycin 250 mg/ Dextrose 250 mls @ 250 mls/hr 04/16/18 10:30 IVPB 04/20/18 10:29 DAILY KARINA Ceftriaxone Sodium 1 gm/ 50 mls @ 100 mls/hr 04/16/18 10:30 Dextrose IVPB DAILY KARINA Labetalol HCl 200 mg 04/15/18 18:09 04/16/18 06:08 Normodyne - PO 200 mg TID KARINA Administration Losartan Potassium 100 mg 04/16/18 10:00 04/16/18 09:06 Cozaar - PO 100 mg DAILY KARINA Administration Minoxidil 10 mg 04/15/18 22:00 04/15/18 22:04 Loniten - PO 10 mg HS KARINA Administration Nifedipine 60 mg 04/15/18 22:00 04/16/18 09:06 Procardia Xl - PO 60 mg BID KARINA Administration Microbiology 04/15/18 09:05 Blood - Peripheral Venous Blood Culture - Preliminary NO GROWTH OBTAINED AFTER 24 HOURS, INCUBATION TO CONTINUE FOR 4 DAYS. 04/15/18 09:35 Blood - Peripheral Venous Blood Culture - Preliminary NO GROWTH OBTAINED AFTER 24 HOURS, INCUBATION TO CONTINUE FOR 4 DAYS. Assessment: 72 year old female with pmh of ESRD, CHF, DM2, HTN who presents to ED with two weeks of worsening productive cough, SOB and LE edema. Plan: 1. Acute on chronic diastolic CHF exacerbation - Improved with HD fluid removal yesterday - Continue HD per renal - ECHO noted, no significant change from last year 02/2017, LVSF nml - Continue labetalol, lorsartan - Cardiology following 2. CAP - Continue ceftriaxone, azithro - BC NGTD 3. ESRD - HD yesterday - HD per renal 4. Anemia of chronic disease, iron deficient - Iron studies noted - Consider venofer, defer to renal 5. HTN - Cont current meds 6. R foot wound - Vascular eval pending 7. DVT - Heparin sq Visit type - Emergency Visit Emergency Visit: Yes ED Registration Date: 04/15/18 Care time: The patient presented to the Emergency Department on the above date and was hospitalized for further evaluation of their emergent condition. - New Patient This patient is new to me today: Yes Date on this admission: 04/17/18 - Critical Care Critical Care patient: No - Discharge Referral Referred to [facility] Med P.C.: No
[2018-04-16] MEDS ORDERED: DEXTROSE 5%-WATER - 50 ML IVPB ONE (11:25)
[2018-04-16] MEDS ORDERED: cefTRIAXone SODIUM 1 GM VIAL ONE (11:25)
[2018-04-16] MEDS: AZITHROMYCIN IVPB 250 MG in DEXTROSE 5%-WATER - 250 ML IVPB SCH (11:39)
[2018-04-16] MEDS: CEFTRIAXONE 1 GM in DEXTROSE 5%-WATER - 50 ML IVPB SCH (11:41)
[2018-04-16] MEDS ORDERED: guaiFENesin/D-M SUGAR-FREE/ACLHOL-FREE 118 ML BOTTLE PO PRN (11:55)
--- NOTE | 2018-04-16 12:47 | PN ---
Progress Note, Physician History of Present Illness: The patient seen in her room. Still with a cough. Dyspnea better. 72 yo F w/ PMH of ESRD (dialysis MWF) at [facility] dialysis unit, CHF , HTN, DM2, who presents with worsening cough and SOB over the last two weeks. Pt has a productive cough that began two week ago and worsening SOB with activity. She also had anterior chest wall pain and upper back pain from persistent cough , in addition to increased edema in her legs BL. - Current Medication List Current Medications: Active Medications Atorvastatin Calcium (Lipitor -) 10 mg PO [facility] Last Admin: 04/15/18 21:21 Dose: 10 mg Calcium Acetate (Phoslo -) 667 mg PO TIDCM [facility] Last Admin: 04/16/18 11:41 Dose: 667 mg Docusate Sodium (Colace -) 100 mg PO [facility] Last Admin: 04/15/18 21:21 Dose: 100 mg Gabapentin (Neurontin -) 100 mg PO [facility] Last Admin: 04/15/18 21:21 Dose: 100 mg Guaifenesin (Diabetic Tussin Dm -) 10 ml PO Q4H PRN PRN Reason: COUGH Heparin Sodium (Porcine) (Heparin -) 5,000 unit SQ TID [facility] Last Admin: 04/16/18 06:08 Dose: 5,000 unit Azithromycin 250 mg/ Dextrose 250 mls @ 250 mls/hr IVPB DAILY [facility] Stop: 04/20/18 11:44 Last Admin: 04/16/18 11:39 Dose: 250 mls/hr Ceftriaxone Sodium 1 gm/ (Dextrose) 50 mls @ 100 mls/hr IVPB DAILY [facility] Last Admin: 04/16/18 11:41 Dose: 100 mls/hr Labetalol HCl (Normodyne -) 200 mg PO TID [facility] Last Admin: 04/16/18 06:08 Dose: 200 mg Losartan Potassium (Cozaar -) 100 mg PO DAILY [facility] Last Admin: 04/16/18 09:06 Dose: 100 mg Minoxidil (Loniten -) 10 mg PO HS [facility] Last Admin: 04/15/18 22:04 Dose: 10 mg Nifedipine (Procardia Xl -) 60 mg PO BID [facility] Last Admin: 04/16/18 09:06 Dose: 60 mg - Objective Vital Signs: Vital Signs Temperature 98.2 F 04/16/18 08:50 Pulse Rate 74 04/16/18 08:50 Respiratory Rate 18 04/16/18 09:00 Blood Pressure 136/61 04/16/18 08:50 O2 Sat by Pulse Oximetry (%) 97 04/16/18 09:00 Constitutional: Yes: Anxious, Mild Distress HENT: Yes: Normocephalic Neck: Yes: Trachea Midline Cardiovascular: Yes: S1, S2 Respiratory: Yes: Diminished, Rhonchi Gastrointestinal: Yes: Normal Bowel Sounds, Soft Genitourinary: No: CVA Tenderness - Left, CVA Tenderness - Right Neurological: Yes: Alert, Oriented Labs: CBC, BMP 04/15/18 05:55 04/15/18 05:55 INR, PTT INR 1.15 (0.82-1.09) H 04/15/18 05:55 Problem List - Problems (1) Shortness of breath Code(s): R06.02 - SHORTNESS OF BREATH (2) ESRD (end stage renal disease) on dialysis Code(s): N18.6 - END STAGE RENAL DISEASE; Z99.2 - DEPENDENCE ON RENAL DIALYSIS (3) AV fistula Code(s): I77.0 - ARTERIOVENOUS FISTULA, ACQUIRED (4) Acute on chronic diastolic (congestive) heart failure Code(s): I50.33 - ACUTE ON CHRONIC DIASTOLIC (CONGESTIVE) HEART FAILURE (5) Anemia Code(s): D64.9 - ANEMIA, UNSPECIFIED Qualifiers: Anemia type: unspecified type Qualified Code(s): D64.9 - Anemia, unspecified (6) Bleeding from dialysis shunt Code(s): T82.838A - HEMORRHAGE DUE TO VASCULAR PROSTH DEV/GRFT, INIT Qualifiers: Encounter type: initial encounter Qualified Code(s): T82.838A - Hemorrhage due to vascular prosthetic devices, implants and grafts, initial encounter (7) Diabetes type 2, controlled Code(s): E11.9 - TYPE 2 DIABETES MELLITUS WITHOUT COMPLICATIONS Qualifiers: Diabetes mellitus complication status: with kidney complications Chronic kidney disease stage: stage 5, not on chronic dialysis (8) Foot pain, right Code(s): M79.671 - PAIN IN RIGHT FOOT (9) Paroxysmal atrial fibrillation Code(s): I48.0 - PAROXYSMAL ATRIAL FIBRILLATION (10) End stage renal disease Code(s): N18.6 - END STAGE RENAL DISEASE (11) Hypertension Code(s): I10 - ESSENTIAL (PRIMARY) HYPERTENSION Qualifiers: Hypertension type: essential hypertension Qualified Code(s): I10 - Essential (primary) hypertension (12) Congestive heart failure Code(s): I50.9 - HEART FAILURE, UNSPECIFIED Assessment/Plan 72 yo F w/ PMH of ESRD (dialysis MWF) at [facility] dialysis unit, CHF , HTN, DM2, who presents with worsening cough and SOB over the last two weeks. Pt has a productive cough that began two week ago and worsening SOB with activity. She also had anterior chest wall pain and upper back pain from persistent cough , in addition to increased edema in her legs BL. She has ESRD, and she receives dialysis MWF and was most recently dialyzed this past Sunday with no complications. Acute Congestive Heart failure in this 72 y/o female woth ESRD, and volume overload. The right foot gangrene is painful. ? Vascular evaluation. Persitent cough, possibly Acute Resp. infection. On Abx. BP improved. Next HD tomorrow. Thank you. Will follow the patient with you. Sobeida Chavez MD
--- NOTE | 2018-04-16 18:07 | PN ---
Progress Note (short form) - Note Progress Note: Vascular Surgery Pt seen and examined. Right foot -- third toe ulcer, open. Palpable PT pulse. No palpable DP pulse. Place bacitracin to area daily. Pt will need CTA to look at runoff into the foot. Enmanuel lopez DO
[2018-04-16] MEDS ORDERED: PT OWN MED DRAWER 7, Y5N ONE (21:18)
[2018-04-16] MEDS: DOCUSATE SODIUM 100 MG CAPSULE (FP) PO SCH (21:54)
[2018-04-16] MEDS: ATORVASTATIN CA 10 MG TABLET (FP) PO SCH (21:55)
[2018-04-16] MEDS: MINOXIDIL 10 MG TABLET PO SCH (21:55)
[2018-04-16] MEDS: GABAPENTIN 100 MG CAPSULE (FP) PO SCH (21:55)
[2018-04-17] MEDS ORDERED: ACETAMINOPHEN 325 MG TABLET (FP) ONE (03:27)
[2018-04-17] MEDS: LABETALOL HCL 200 MG TABLET (FP) PO SCH ×3 (06:32→21:56)
[2018-04-17] MEDS: HEPARIN NA (PORCINE) 5,000 UNITS/ML 1ML VIAL SQ SCH ×3 (06:34→21:55)
[2018-04-17 06:56] LABS: HEMATOCRIT 26.2 % (32.4-45.2); HEMOGLOBIN 8.3 GM/dL (10.7-15.3); LYMPH % 15.7 % (8-40); MCH 26.4 pg (25.7-33.7); MCHC 31.8 g/dl (32.0-36.0); MEAN PLT VOLUME 8.2 fl (7.5-11.1); MONO % 10.6 % (3.8-10.2); NEUT % 64.7 % (42.8-82.8); PLATELET COUNT 199 K/MM3 (134-434); RBC 3.16 M/mm3 (3.60-5.2); WHITE BLOOD COUNT 6.1 K/mm3 (4.0-10.0)
[2018-04-17] MEDS ORDERED: DEXTROSE 5%-WATER - 50 ML IVPB ONE (08:34)
[2018-04-17] MEDS ORDERED: cefTRIAXone SODIUM 1 GM VIAL ONE (08:34)
[2018-04-17] MEDS: CALCIUM ACETATE 667 MG CAPSULE (FP) PO SCH ×3 (09:36→18:01)
--- NOTE | 2018-04-17 11:53 | PN ---
Progress Note, Physician History of Present Illness: Dyspnea, orthopnea, bilateral lower extremity edema and cough improving with HD and BP control. - Current Medication List Current Medications: Active Medications Atorvastatin Calcium (Lipitor -) 10 mg PO HS [facility] Last Admin: 04/16/18 21:55 Dose: 10 mg Calcium Acetate (Phoslo -) 667 mg PO TIDCM [facility] Last Admin: 04/17/18 09:36 Dose: 667 mg Docusate Sodium (Colace -) 100 mg PO [facility] Last Admin: 04/16/18 21:54 Dose: 100 mg Epoetin Arturo (Procrit -) 10,000 unit IVPUSH ONCE ONE Stop: 04/17/18 12:51 Gabapentin (Neurontin -) 100 mg PO [facility] Last Admin: 04/16/18 21:55 Dose: 100 mg Guaifenesin (Diabetic Tussin Dm -) 10 ml PO Q4H PRN PRN Reason: COUGH Heparin Sodium (Porcine) (Heparin -) 5,000 unit SQ TID [facility] Last Admin: 04/17/18 06:34 Dose: 5,000 unit Azithromycin 250 mg/ Dextrose 250 mls @ 250 mls/hr IVPB DAILY [facility] Stop: 04/20/18 11:44 Last Admin: 04/16/18 11:39 Dose: 250 mls/hr Ceftriaxone Sodium 1 gm/ (Dextrose) 50 mls @ 100 mls/hr IVPB DAILY [facility] Last Admin: 04/16/18 11:41 Dose: 100 mls/hr Labetalol HCl (Normodyne -) 200 mg PO TID [facility] Last Admin: 04/17/18 06:32 Dose: Not Given Losartan Potassium (Cozaar -) 100 mg PO DAILY [facility] Last Admin: 04/16/18 09:06 Dose: 100 mg Minoxidil (Loniten -) 10 mg PO HS [facility] Last Admin: 04/16/18 21:55 Dose: 10 mg Nifedipine (Procardia Xl -) 60 mg PO BID [facility] Last Admin: 04/16/18 21:56 Dose: 60 mg - Objective Vital Signs: Vital Signs Temperature 98.2 F 04/17/18 08:00 Pulse Rate 95 H 04/17/18 08:37 Respiratory Rate 14 04/17/18 09:00 Blood Pressure 132/68 04/17/18 08:00 O2 Sat by Pulse Oximetry (%) 98 04/17/18 09:00 Constitutional: Yes: No Distress, Calm Neck: Yes: Supple Cardiovascular: Yes: Regular Rate and Rhythm Respiratory: Yes: Regular, Diminished, On Nasal O2 Gastrointestinal: Yes: Normal Bowel Sounds, Soft Edema: No Labs: CBC, BMP 04/17/18 06:15 04/15/18 05:55 INR, PTT INR 1.15 (0.82-1.09) H 04/15/18 05:55 Problem List - Problems (1) Shortness of breath Code(s): R06.02 - SHORTNESS OF BREATH (2) ESRD (end stage renal disease) on dialysis Code(s): N18.6 - END STAGE RENAL DISEASE; Z99.2 - DEPENDENCE ON RENAL DIALYSIS (3) Acute on chronic diastolic (congestive) heart failure Code(s): I50.33 - ACUTE ON CHRONIC DIASTOLIC (CONGESTIVE) HEART FAILURE (4) Diabetes type 2, controlled Code(s): E11.9 - TYPE 2 DIABETES MELLITUS WITHOUT COMPLICATIONS Qualifiers: Diabetes mellitus complication status: with kidney complications Chronic kidney disease stage: stage 5, not on chronic dialysis (5) Hypertensive urgency Code(s): I10 - ESSENTIAL (PRIMARY) HYPERTENSION (6) Anemia, chronic renal failure Code(s): N18.9 - CHRONIC KIDNEY DISEASE, UNSPECIFIED; D63.1 - ANEMIA IN CHRONIC KIDNEY DISEASE (7) Hyperlipidemia Code(s): E78.5 - HYPERLIPIDEMIA, UNSPECIFIED Qualifiers: Hyperlipidemia type: pure hypercholesterolemia Qualified Code(s): E78.00 - Pure hypercholesterolemia, unspecified; E78.0 - Pure hypercholesterolemia (8) Hypertensive renal disease Code(s): I12.9 - HYPERTENSIVE CHRONIC KIDNEY DISEASE W STG 1-4/UNSP CHR KDNY (9) Peripheral artery disease Code(s): I73.9 - PERIPHERAL VASCULAR DISEASE, UNSPECIFIED Assessment/Plan 04/15/2018 Mild cLVH, normal LV fxn, mild TR, tr AR 1. Acute on chonic diastolic failure in context of 2. Hypertensive urgency 3. RUL PNA 4. ESRD->HD MWF 5. Type 2 DM 6. PAD with right foot CLI P:1. Volume removal via HD 2. Continue losartan 100 qd, labetolol 200 tid, Procardial XL 60 bid, Lipitor 10 qhs, Minoxidil 10 qhs, resume ASA 81 qd 3. Complete empiric abx course 4. Emphasized importance of diet, medication and HD compliance 5. Wound care, f/u CTA results, DVT prophylaxis
--- NOTE | 2018-04-17 12:38 | PN ---
Progress Note, Physician History of Present Illness: The patient seen in her room. Had CTA earlier. 72 yo F w/ PMH of ESRD (dialysis MWF) at [facility] dialysis unit, CHF , HTN, DM2, who presents with worsening cough and SOB over the last two weeks. Pt has a productive cough that began two week ago and worsening SOB with activity. She also had anterior chest wall pain and upper back pain from persistent cough , in addition to increased edema in her legs BL. 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 Osteo. Had CTA this morning. Results pending. - Current Medication List Current Medications: Active Medications Aspirin (Asa -) 81 mg PO DAILY [facility] Atorvastatin Calcium (Lipitor -) 10 mg PO HS [facility] Last Admin: 04/16/18 21:55 Dose: 10 mg Calcium Acetate (Phoslo -) 667 mg PO TIDCM [facility] Last Admin: 04/17/18 09:36 Dose: 667 mg Docusate Sodium (Colace -) 100 mg PO HS [facility] Last Admin: 04/16/18 21:54 Dose: 100 mg Epoetin Arturo (Procrit -) 10,000 unit IVPUSH ONCE ONE Stop: 04/17/18 12:51 Gabapentin (Neurontin -) 100 mg PO HS [facility] Last Admin: 04/16/18 21:55 Dose: 100 mg Guaifenesin (Diabetic Tussin Dm -) 10 ml PO Q4H PRN PRN Reason: COUGH Heparin Sodium (Porcine) (Heparin -) 5,000 unit SQ TID [facility] Last Admin: 04/17/18 06:34 Dose: 5,000 unit Azithromycin 250 mg/ Dextrose 250 mls @ 250 mls/hr IVPB DAILY [facility] Stop: 04/20/18 11:44 Last Admin: 04/16/18 11:39 Dose: 250 mls/hr Ceftriaxone Sodium 1 gm/ (Dextrose) 50 mls @ 100 mls/hr IVPB DAILY [facility] Last Admin: 04/16/18 11:41 Dose: 100 mls/hr Labetalol HCl (Normodyne -) 200 mg PO TID [facility] Last Admin: 04/17/18 06:32 Dose: Not Given Losartan Potassium (Cozaar -) 100 mg PO DAILY [facility] Last Admin: 04/16/18 09:06 Dose: 100 mg Minoxidil (Loniten -) 10 mg PO HS [facility] Last Admin: 04/16/18 21:55 Dose: 10 mg Nifedipine (Procardia Xl -) 60 mg PO BID [facility] Last Admin: 04/16/18 21:56 Dose: 60 mg - Objective Vital Signs: Vital Signs Temperature 98.2 F 04/17/18 08:00 Pulse Rate 69 04/17/18 12:00 Respiratory Rate 18 04/17/18 12:00 Blood Pressure 140/73 04/17/18 12:00 O2 Sat by Pulse Oximetry (%) 98 04/17/18 09:00 Constitutional: Yes: Well Nourished, Calm Eyes: Yes: Conjunctiva Clear HENT: Yes: Normocephalic Neck: Yes: Trachea Midline Cardiovascular: Yes: Regular Rate and Rhythm, S1, S2 Respiratory: Yes: CTA Bilaterally, Diminished, Rhonchi Gastrointestinal: Yes: Normal Bowel Sounds, Soft Extremities: Yes: Other (Rt foot gangrene) Neurological: Yes: Alert, Oriented Labs: CBC, BMP 04/17/18 06:15 04/15/18 05:55 INR, PTT INR 1.15 (0.82-1.09) H 04/15/18 05:55 Problem List - Problems (1) Shortness of breath Code(s): R06.02 - SHORTNESS OF BREATH (2) ESRD (end stage renal disease) on dialysis Code(s): N18.6 - END STAGE RENAL DISEASE; Z99.2 - DEPENDENCE ON RENAL DIALYSIS (3) AV fistula Code(s): I77.0 - ARTERIOVENOUS FISTULA, ACQUIRED (4) Acute on chronic diastolic (congestive) heart failure Code(s): I50.33 - ACUTE ON CHRONIC DIASTOLIC (CONGESTIVE) HEART FAILURE (5) Anemia Code(s): D64.9 - ANEMIA, UNSPECIFIED Qualifiers: Anemia type: unspecified type Qualified Code(s): D64.9 - Anemia, unspecified (6) Bleeding from dialysis shunt Code(s): T82.838A - HEMORRHAGE DUE TO VASCULAR PROSTH DEV/GRFT, INIT Qualifiers: Encounter type: initial encounter Qualified Code(s): T82.838A - Hemorrhage due to vascular prosthetic devices, implants and grafts, initial encounter (7) Diabetes type 2, controlled Code(s): E11.9 - TYPE 2 DIABETES MELLITUS WITHOUT COMPLICATIONS Qualifiers: Diabetes mellitus complication status: with kidney complications Chronic kidney disease stage: stage 5, not on chronic dialysis (8) Foot pain, right Code(s): M79.671 - PAIN IN RIGHT FOOT (9) Paroxysmal atrial fibrillation Code(s): I48.0 - PAROXYSMAL ATRIAL FIBRILLATION (10) End stage renal disease Code(s): N18.6 - END STAGE RENAL DISEASE (11) Hypertension Code(s): I10 - ESSENTIAL (PRIMARY) HYPERTENSION Qualifiers: Hypertension type: essential hypertension Qualified Code(s): I10 - Essential (primary) hypertension (12) Congestive heart failure Code(s): I50.9 - HEART FAILURE, UNSPECIFIED Assessment/Plan 72 yo F w/ PMH of ESRD (dialysis MWF) at [facility] dialysis unit, CHF , HTN, DM2, who presents with worsening cough and SOB over the last two weeks. Pt has a productive cough that began two week ago and worsening SOB with activity. She also had anterior chest wall pain and upper back pain from persistent cough , in addition to increased edema in her legs BL. She has ESRD. Acute Congestive Heart failure in this 72 y/o female woth ESRD, and volume overload. The right foot gangrene is painful. Vascular evaluation in progress. Had CTA earlier. Persitent cough, possibly Acute Resp. infection. On Abx. BP improved. HD started after the CTA. Orders reviewed with the RN. Thank you. Will follow the patient with you. Sobeida Chavez MD
[2018-04-17] MEDS ORDERED: EPOETIN ALFA 10,000 UNIT/1 ML VIAL IVPUSH ONE (12:50)
--- NOTE | 2018-04-17 14:25 | PN ---
Physical Exam: SUBJECTIVE: Patient seen and examined. Her cough is improved, however still in the AM. Tolerating HD, no pain to R foot. OBJECTIVE: Vital Signs Period Temp Pulse Resp BP Sys/Parker Pulse Ox Last 24 Hr 98.0 F-98.5 F 62-95 14-20 123-159/60-77 96-98 PE Neuro: alert, awake, cn 2-12intact Pulm: basilar course, however clear, + cough + NC CV: s1 s2 rrr + 2/6 murmur Abd: s nt nd +bs Ext: warm, no le edema , r foot ulcer 3rd toe open drainage +sensation Laboratory Results - last 24 hr 04/15/18 04/17/18 14:45 06:15 WBC 6.1 D RBC 3.16 L Hgb 8.3 L Hct 26.2 L MCV 83.0 MCH 26.4 MCHC 31.8 L RDW 17.0 H Plt Count 199 MPV 8.2 Absolute Neuts (auto) 3.9 Neutrophils % 64.7 D Lymphocytes % 15.7 D Monocytes % 10.6 H Eosinophils % 8.0 H D Basophils % 1.0 Nucleated RBC % 0 Hep C Ab Diagnostic <0.1 Liver Fibrosis Interp Active Medications Generic Name Dose Route Start Last Admin Trade Name Freq PRN Reason Stop Dose Admin Aspirin 81 mg 04/18/18 10:00 Asa - PO DAILY [facility] Atorvastatin Calcium 10 mg 04/15/18 22:00 04/16/18 21:55 Lipitor - PO 10 mg HS [facility] Administration Bacitracin 1 applic 04/17/18 14:30 Bacitracin - TP DAILY [facility] Calcium Acetate 667 mg 04/16/18 08:00 04/17/18 09:36 Phoslo - PO 667 mg TIDCM [facility] Administration Docusate Sodium 100 mg 04/15/18 22:00 04/16/18 21:54 Colace - PO 100 mg HS [facility] Administration Gabapentin 100 mg 04/15/18 22:00 04/16/18 21:55 Neurontin - PO 100 mg HS [facility] Administration Guaifenesin 10 ml 04/16/18 11:55 Diabetic Tussin Dm - PO Q4H PRN COUGH Heparin Sodium (Porcine) 5,000 unit 04/15/18 06:00 04/17/18 06:34 Heparin - SQ 5,000 unit TID [facility] Administration Azithromycin 250 mg/ Dextrose 250 mls @ 250 mls/hr 04/16/18 11:45 04/16/18 11 :39 IVPB 04/20/18 11:44 250 mls/hr DAILY [facility] Administration Ceftriaxone Sodium 1 gm/ 50 mls @ 100 mls/hr 04/16/18 11:30 04/16/18 11:41 Dextrose IVPB 100 mls/hr DAILY [facility] Administration Labetalol HCl 200 mg 04/15/18 18:09 04/17/18 06:32 Normodyne - PO Not Given TID [facility] Losartan Potassium 100 mg 04/16/18 10:00 04/16/18 09:06 Cozaar - PO 100 mg DAILY [facility] Administration Minoxidil 10 mg 04/15/18 22:00 04/16/18 21:55 Loniten - PO 10 mg HS [facility] Administration Nifedipine 60 mg 04/15/18 22:00 04/16/18 21:56 Procardia Xl - PO 60 mg BID [facility] Administration Imaging: - ECHO noted, no significant change from last year 02/2017, LVSF nml Assessment: 72 year old female with pmh of ESRD, CHF, DM2, HTN who presents to ED with two weeks of worsening productive cough, SOB and LE edema. Plan: 1. Acute on chronic diastolic CHF exacerbation - Improved with HD - Continue HD per renal - Continue labetalol, lorsartan - Cardiology following 2. CAP - Continue ceftriaxone, azithro - BC NGTD 3. ESRD - HD today - HD per renal 4. Anemia of chronic disease, iron deficient - Start ferrous sulfate - Consider venofer, defer to renal 5. HTN - Cont current meds 6. R foot wound - CTA today, pending read will need MRI for r/o osteo - Angiogram tentatively scheduled for Sunday, d/w cardiology pt is stable for procedure 7. DVT - Heparin sq Visit type - Emergency Visit Emergency Visit: Yes ED Registration Date: 04/15/18 Care time: The patient presented to the Emergency Department on the above date and was hospitalized for further evaluation of their emergent condition. - New Patient This patient is new to me today: No - Critical Care Critical Care patient: No
[2018-04-17] MEDS: CEFTRIAXONE 1 GM in DEXTROSE 5%-WATER - 50 ML IVPB SCH (15:01)
[2018-04-17] MEDS: NIFEdipine E.R 60 MG TABLET (UD) PO SCH ×2 (15:03→21:57)
[2018-04-17] MEDS: AZITHROMYCIN IVPB 250 MG in DEXTROSE 5%-WATER - 250 ML IVPB SCH (15:04)
[2018-04-17] MEDS: BACITRACIN 15 GM TUBE TOPICAL OINTMENT TP SCH (15:08)
[2018-04-17] MEDS: LOSARTAN POTASSIUM 50 MG TABLET (FP) PO SCH (15:08)
[2018-04-17] MEDS: FERROUS SO4 325 MG TABLET (FP) PO SCH (18:01)
[2018-04-17] MEDS ORDERED: PT OWN MED DRAWER 7, Y5N ONE (21:42)
[2018-04-17] MEDS: DOCUSATE SODIUM 100 MG CAPSULE (FP) PO SCH ×2 (21:55)
[2018-04-17] MEDS: MINOXIDIL 10 MG TABLET PO SCH (21:56)
[2018-04-17] MEDS: ATORVASTATIN CA 10 MG TABLET (FP) PO SCH (21:56)
[2018-04-17] MEDS: GABAPENTIN 100 MG CAPSULE (FP) PO SCH (21:56)
[2018-04-18 00:07] LABS: HBSAG SCREEN Negative (Negative); HEP A AB, IGM Negative (Negative); HEP B CORE AB, TOT Negative (Negative)
[2018-04-18] MEDS ORDERED: DEXTROSE 5%-WATER - 50 ML IVPB ONE (09:31)
[2018-04-18] MEDS ORDERED: cefTRIAXone SODIUM 1 GM VIAL ONE (09:31)
[2018-04-18] MEDS ORDERED: PT OWN MED DRAWER 7, Y5N ONE (09:31)
--- NOTE | 2018-04-18 09:40 | PN ---
Progress Note, Physician History of Present Illness: Dyspnea, orthopnea, bilateral lower extremity edema and cough improving with HD and BP control. - Current Medication List Current Medications: Active Medications Ascorbic Acid (Vitamin C -) 500 mg PO DAILY [facility] Aspirin (Asa -) 81 mg PO DAILY [facility] Atorvastatin Calcium (Lipitor -) 10 mg PO HS [facility] Last Admin: 04/17/18 21:56 Dose: 10 mg Bacitracin (Bacitracin -) 1 applic TP DAILY [facility] Last Admin: 04/17/18 15:08 Dose: 1 applic Calcium Acetate (Phoslo -) 667 mg PO TIDCM [facility] Last Admin: 04/17/18 18:01 Dose: 667 mg Docusate Sodium (Colace -) 100 mg PO HS [facility] Last Admin: 04/17/18 21:55 Dose: 100 mg Docusate Sodium (Colace -) 100 mg PO BID [facility] Last Admin: 04/17/18 21:55 Dose: Not Given Ferrous Sulfate (Feosol -) 325 mg PO TIDCM [facility] Last Admin: 04/17/18 18:01 Dose: 325 mg Gabapentin (Neurontin -) 100 mg PO [facility] Last Admin: 04/17/18 21:56 Dose: 100 mg Guaifenesin (Diabetic Tussin Dm -) 10 ml PO Q4H PRN PRN Reason: COUGH Last Admin: 04/17/18 22:04 Dose: 10 ml Heparin Sodium (Porcine) (Heparin -) 5,000 unit SQ TID [facility] Last Admin: 04/17/18 21:55 Dose: 5,000 unit Azithromycin 250 mg/ Dextrose 250 mls @ 250 mls/hr IVPB DAILY [facility] Stop: 04/20/18 11:44 Last Admin: 04/17/18 15:04 Dose: 250 mls/hr Ceftriaxone Sodium 1 gm/ (Dextrose) 50 mls @ 100 mls/hr IVPB DAILY [facility] Last Admin: 04/17/18 15:01 Dose: 100 mls/hr Labetalol HCl (Normodyne -) 200 mg PO TID [facility] Last Admin: 04/17/18 21:56 Dose: 200 mg Losartan Potassium (Cozaar -) 100 mg PO DAILY [facility] Last Admin: 04/17/18 15:08 Dose: 100 mg Minoxidil (Loniten -) 10 mg PO [facility] Last Admin: 04/17/18 21:56 Dose: 10 mg Nifedipine (Procardia Xl -) 60 mg PO BID [facility] Last Admin: 04/17/18 21:57 Dose: 60 mg - Objective Vital Signs: Vital Signs Temperature 97.9 F 04/17/18 20:19 Pulse Rate 78 04/17/18 20:19 Respiratory Rate 20 04/17/18 20:19 Blood Pressure 152/68 04/17/18 20:19 O2 Sat by Pulse Oximetry (%) 95 04/17/18 21:23 Constitutional: Yes: No Distress, Calm Neck: Yes: Supple Cardiovascular: Yes: Regular Rate and Rhythm Respiratory: Yes: Regular, Diminished Gastrointestinal: Yes: Normal Bowel Sounds, Soft Edema: No Labs: CBC, BMP 04/17/18 06:15 04/15/18 05:55 INR, PTT INR 1.15 (0.82-1.09) H 04/15/18 05:55 Problem List - Problems (1) Shortness of breath Code(s): R06.02 - SHORTNESS OF BREATH (2) ESRD (end stage renal disease) on dialysis Code(s): N18.6 - END STAGE RENAL DISEASE; Z99.2 - DEPENDENCE ON RENAL DIALYSIS (3) Acute on chronic diastolic (congestive) heart failure Code(s): I50.33 - ACUTE ON CHRONIC DIASTOLIC (CONGESTIVE) HEART FAILURE (4) Diabetes type 2, controlled Code(s): E11.9 - TYPE 2 DIABETES MELLITUS WITHOUT COMPLICATIONS Qualifiers: Diabetes mellitus complication status: with kidney complications Chronic kidney disease stage: stage 5, not on chronic dialysis (5) Hypertensive urgency Code(s): I10 - ESSENTIAL (PRIMARY) HYPERTENSION (6) Anemia, chronic renal failure Code(s): N18.9 - CHRONIC KIDNEY DISEASE, UNSPECIFIED; D63.1 - ANEMIA IN CHRONIC KIDNEY DISEASE (7) Hyperlipidemia Code(s): E78.5 - HYPERLIPIDEMIA, UNSPECIFIED Qualifiers: Hyperlipidemia type: pure hypercholesterolemia Qualified Code(s): E78.00 - Pure hypercholesterolemia, unspecified; E78.0 - Pure hypercholesterolemia (8) Hypertensive renal disease Code(s): I12.9 - HYPERTENSIVE CHRONIC KIDNEY DISEASE W STG 1-4/UNSP CHR KDNY (9) Peripheral artery disease Code(s): I73.9 - PERIPHERAL VASCULAR DISEASE, UNSPECIFIED Assessment/Plan 04/15/2018 Mild cLVH, normal LV fxn, mild TR, tr AR 1. Acute on chonic diastolic failure in context of 2. Hypertensive urgency 3. RUL PNA 4. ESRD->HD MWF 5. Type 2 DM 6. PAD with right foot CLI P:1. Volume removal via HD 2. Continue losartan 100 qd, labetolol 200 tid, Procardial XL 60 bid, Lipitor 10 qhs, Minoxidil 10 qhs, and ASA 81 qd 3. Complete empiric abx course 4. Emphasized importance of diet, medication and HD compliance 5. Wound care, CTA shos mod-severe fem-pop disease L>R, DVT prophylaxis
[2018-04-18] MEDS: FERROUS SO4 325 MG TABLET (FP) PO SCH ×3 (09:45→17:33)
[2018-04-18] MEDS: LOSARTAN POTASSIUM 50 MG TABLET (FP) PO SCH (09:45)
[2018-04-18] MEDS: CALCIUM ACETATE 667 MG CAPSULE (FP) PO SCH ×3 (09:46→17:33)
[2018-04-18] MEDS: ASPIRIN 81 MG CHEWABLE TABLETS PO SCH (09:46)
[2018-04-18] MEDS: HEPARIN NA (PORCINE) 5,000 UNITS/ML 1ML VIAL SQ SCH ×3 (09:47→21:27)
[2018-04-18] MEDS: DOCUSATE SODIUM 100 MG CAPSULE (FP) PO SCH ×3 (09:48→21:27)
[2018-04-18] MEDS: NIFEdipine E.R 60 MG TABLET (UD) PO SCH ×2 (09:49→21:26)
[2018-04-18] MEDS: CEFTRIAXONE 1 GM in DEXTROSE 5%-WATER - 50 ML IVPB SCH (11:01)
[2018-04-18] MEDS: ASCORBIC ACID 500 MG TABLET (FP) PO SCH (11:01)
[2018-04-18] MEDS: BACITRACIN 15 GM TUBE TOPICAL OINTMENT TP SCH (11:01)
[2018-04-18] MEDS: AZITHROMYCIN IVPB 250 MG in DEXTROSE 5%-WATER - 250 ML IVPB SCH (12:22)
--- NOTE | 2018-04-18 13:19 | PN ---
Progress Note, Physician History of Present Illness: The patient seen in her room. 72 yo F w/ PMH of ESRD (dialysis MWF) at [facility] dialysis unit, CHF , HTN, DM2, who presents with worsening cough and SOB over the last two weeks. Pt has a productive cough that began two week ago and worsening SOB with activity. She also had anterior chest wall pain and upper back pain from persistent cough , in addition to increased edema in her legs BL. 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 Osteo. Had CTA this morning. Results pending. Vascular w/u in progress. - Current Medication List Current Medications: Active Medications Ascorbic Acid (Vitamin C -) 500 mg PO DAILY [facility] Last Admin: 04/18/18 11:01 Dose: 500 mg Aspirin (Asa -) 81 mg PO DAILY [facility] Last Admin: 04/18/18 09:46 Dose: 81 mg Atorvastatin Calcium (Lipitor -) 10 mg PO HS [facility] Last Admin: 04/17/18 21:56 Dose: 10 mg Bacitracin (Bacitracin -) 1 applic TP DAILY [facility] Last Admin: 04/18/18 11:01 Dose: 1 applic Calcium Acetate (Phoslo -) 667 mg PO TIDCM [facility] Last Admin: 04/18/18 12:44 Dose: 667 mg Docusate Sodium (Colace -) 100 mg PO [facility] Last Admin: 04/17/18 21:55 Dose: 100 mg Docusate Sodium (Colace -) 100 mg PO BID [facility] Last Admin: 04/18/18 09:48 Dose: 100 mg Ferrous Sulfate (Feosol -) 325 mg PO TIDCM [facility] Last Admin: 04/18/18 12:44 Dose: 325 mg Gabapentin (Neurontin -) 100 mg PO HS [facility] Last Admin: 04/17/18 21:56 Dose: 100 mg Guaifenesin (Diabetic Tussin Dm -) 10 ml PO Q4H PRN PRN Reason: COUGH Last Admin: 04/17/18 22:04 Dose: 10 ml Heparin Sodium (Porcine) (Heparin -) 5,000 unit SQ TID [facility] Last Admin: 04/18/18 09:47 Dose: 5,000 unit Azithromycin 250 mg/ Dextrose 250 mls @ 250 mls/hr IVPB DAILY [facility] Stop: 04/20/18 11:44 Last Admin: 04/18/18 12:22 Dose: 250 mls/hr Ceftriaxone Sodium 1 gm/ (Dextrose) 50 mls @ 100 mls/hr IVPB DAILY [facility] Last Admin: 04/18/18 11:01 Dose: 100 mls/hr Labetalol HCl (Normodyne -) 200 mg PO TID [facility] Last Admin: 04/17/18 21:56 Dose: 200 mg Losartan Potassium (Cozaar -) 100 mg PO DAILY [facility] Last Admin: 04/18/18 09:45 Dose: 100 mg Minoxidil (Loniten -) 10 mg PO HS [facility] Last Admin: 04/17/18 21:56 Dose: 10 mg Nifedipine (Procardia Xl -) 60 mg PO BID [facility] Last Admin: 04/18/18 09:49 Dose: 60 mg - Objective Vital Signs: Vital Signs Temperature 97.6 F 04/18/18 09:00 Pulse Rate 74 04/18/18 09:00 Respiratory Rate 20 04/18/18 09:00 Blood Pressure 151/66 04/18/18 09:00 O2 Sat by Pulse Oximetry (%) 99 04/18/18 09:00 Constitutional: Yes: Anxious Eyes: Yes: Conjunctiva Clear HENT: Yes: Normocephalic Neck: Yes: Trachea Midline Cardiovascular: Yes: S1, S2 Respiratory: Yes: CTA Bilaterally, Diminished Gastrointestinal: Yes: Normal Bowel Sounds Genitourinary: No: Bladder Distention, CVA Tenderness - Left, CVA Tenderness - Right Extremities: Yes: Other (gangrenous foot.) Edema: RLE: Trace Neurological: Yes: Alert Labs: CBC, BMP 04/17/18 06:15 04/15/18 05:55 INR, PTT INR 1.15 (0.82-1.09) H 04/15/18 05:55 Problem List - Problems (1) Shortness of breath Code(s): R06.02 - SHORTNESS OF BREATH (2) ESRD (end stage renal disease) on dialysis Code(s): N18.6 - END STAGE RENAL DISEASE; Z99.2 - DEPENDENCE ON RENAL DIALYSIS (3) AV fistula Code(s): I77.0 - ARTERIOVENOUS FISTULA, ACQUIRED (4) Acute on chronic diastolic (congestive) heart failure Code(s): I50.33 - ACUTE ON CHRONIC DIASTOLIC (CONGESTIVE) HEART FAILURE (5) Anemia Code(s): D64.9 - ANEMIA, UNSPECIFIED Qualifiers: Anemia type: unspecified type Qualified Code(s): D64.9 - Anemia, unspecified (6) Bleeding from dialysis shunt Code(s): T82.838A - HEMORRHAGE DUE TO VASCULAR PROSTH DEV/GRFT, INIT Qualifiers: Encounter type: initial encounter Qualified Code(s): T82.838A - Hemorrhage due to vascular prosthetic devices, implants and grafts, initial encounter (7) Diabetes type 2, controlled Code(s): E11.9 - TYPE 2 DIABETES MELLITUS WITHOUT COMPLICATIONS Qualifiers: Diabetes mellitus complication status: with kidney complications Chronic kidney disease stage: stage 5, not on chronic dialysis (8) Foot pain, right Code(s): M79.671 - PAIN IN RIGHT FOOT (9) Paroxysmal atrial fibrillation Code(s): I48.0 - PAROXYSMAL ATRIAL FIBRILLATION (10) End stage renal disease Code(s): N18.6 - END STAGE RENAL DISEASE (11) Hypertension Code(s): I10 - ESSENTIAL (PRIMARY) HYPERTENSION Qualifiers: Hypertension type: essential hypertension Qualified Code(s): I10 - Essential (primary) hypertension (12) Congestive heart failure Code(s): I50.9 - HEART FAILURE, UNSPECIFIED Assessment/Plan 72 yo F w/ PMH of ESRD (dialysis MWF) at [facility] dialysis unit, CHF , HTN, DM2, who presents with worsening cough and SOB over the last two weeks. Pt has a productive cough that began two week ago and worsening SOB with activity. She also had anterior chest wall pain and upper back pain from persistent cough , in addition to increased edema in her legs BL. She has ESRD. Acute Congestive Heart failure in this 72 y/o female woth ESRD, and volume overload. Resolved. The right foot gangrene is painful. Vascular evaluation in progress. For Angiogram tomorrow. Persitent cough, possibly Acute Resp. infection. On Abx. BP improved. Will dialyze after the angiogram tomorrow. Thank you. Will follow the patient with you. Sobeida Chavez MD
[2018-04-18] MEDS: LABETALOL HCL 200 MG TABLET (FP) PO SCH ×2 (15:25→21:26)
--- NOTE | 2018-04-18 19:02 | PN ---
Physical Exam: SUBJECTIVE: Patient seen and examined at the bedside. In no acute distress. OBJECTIVE: Vital Signs Period Temp Pulse Resp BP Sys/Parker Pulse Ox Last 24 Hr 97.6 F-98.3 F 70-78 18-20 151-152/66-68 95-99 GENERAL: The patient is awake, alert, and fully oriented, in no acute distress. HEAD: Normal with no signs of trauma. EYES: PERRL, extraocular movements intact, sclera anicteric, conjunctiva clear. No ptosis. ENT: Ears normal, nares patent, oropharynx clear without exudates, moist mucous membranes. NECK: Trachea midline, full range of motion, supple. LUNGS: Breath sounds equal, clear to auscultation bilaterally, HEART: Regular rate and rhythm, S1, S2 without murmur, rub or gallop. ABDOMEN: Soft, nontender, nondistended, normoactive bowel sounds SKIN: right anterior foot, 3rd toe ulceration without drainage nor odor. Laboratory Results - last 24 hr 04/15/18 14:45 Hep A IgM Ab Confirm Negative Hepatitis A Ab Total Positive H Hep Bs Antigen Negative Hep Bs Antibody Non reactive Hep B Core Total Ab Negative Active Medications Generic Name Dose Route Start Last Admin Trade Name Freq PRN Reason Stop Dose Admin Ascorbic Acid 500 mg 04/18/18 10:00 04/18/18 11:01 Vitamin C - PO 500 mg DAILY [facility] Administration Aspirin 81 mg 04/18/18 10:00 04/18/18 09:46 Asa - PO 81 mg DAILY [facility] Administration Atorvastatin Calcium 10 mg 04/15/18 22:00 04/17/18 21:56 Lipitor - PO 10 mg HS [facility] Administration Bacitracin 1 applic 04/17/18 14:30 04/18/18 11:01 Bacitracin - TP 1 applic DAILY [facility] Administration Calcium Acetate 667 mg 04/16/18 08:00 04/18/18 17:33 Phoslo - PO 667 mg TIDCM [facility] Administration Docusate Sodium 100 mg 04/15/18 22:00 04/17/18 21:55 Colace - PO 100 mg HS [facility] Administration Docusate Sodium 100 mg 04/17/18 22:00 04/18/18 09:48 Colace - PO 100 mg BID [facility] Administration Epoetin Arturo 10,000 unit 04/19/18 13:20 Procrit - SQ 04/19/18 13:21 ONCE ONE Ferrous Sulfate 325 mg 04/17/18 17:30 04/18/18 17:33 Feosol - PO 325 mg TIDCM [facility] Administration Gabapentin 100 mg 04/15/18 22:00 04/17/18 21:56 Neurontin - PO 100 mg HS [facility] Administration Guaifenesin 10 ml 04/16/18 11:55 04/17/18 22:04 Diabetic Tussin Dm - PO 10 ml Q4H PRN Administration COUGH Heparin Sodium (Porcine) 5,000 unit 04/15/18 06:00 04/18/18 15:25 Heparin - SQ 5,000 unit TID [facility] Administration Azithromycin 250 mg/ Dextrose 250 mls @ 250 mls/hr 04/16/18 11:45 04/18/18 12 :22 IVPB 04/20/18 11:44 250 mls/hr DAILY [facility] Administration Ceftriaxone Sodium 1 gm/ 50 mls @ 100 mls/hr 04/16/18 11:30 04/18/18 11:01 Dextrose IVPB 100 mls/hr DAILY [facility] Administration Labetalol HCl 200 mg 04/15/18 18:09 04/18/18 15:25 Normodyne - PO 200 mg TID [facility] Administration Losartan Potassium 100 mg 04/16/18 10:00 04/18/18 09:45 Cozaar - PO 100 mg DAILY [facility] Administration Minoxidil 10 mg 04/15/18 22:00 04/17/18 21:56 Loniten - PO 10 mg HS [facility] Administration Nifedipine 60 mg 04/15/18 22:00 04/18/18 09:49 Procardia Xl - PO 60 mg BID [facility] Administration ASSESSMENT/PLAN: Patient is a 72 year old female with a significant past medical history of ESRD (dialysis MWF), CHF, HTN, DM2. She presents to the ED with worsening cough and SOB over the last two weeks. She also had anterior chest wall pain and upper back pain from persistent cough, which is now resolved. She reports increased edema to her bilateral lower extremities. Card: Shortness of breath, improved Acute CHF with ESRD Shortness of breath likely secondary to volume overload Continue Labetalol, lorsartan Tolerating room air, in no distress, oxygen stable Vascular Right foot wound, painful On daily dressing changes Vascular following for angiogram in a.m. Pulm: Cough/Upper Resp. Infection Volume overload vs. acute infection On antibiotics, improved Renal, ESRD. for dialysis after angiogram tomorrow. Heme: Anemia of chronic disease hmg/hct low stable May benefit from venofer infusions FEN/prophy tolerating PO Monitor electrolytes low salt heparin PT Visit type - Emergency Visit Emergency Visit: Yes ED Registration Date: 04/15/18 Care time: The patient presented to the Emergency Department on the above date and was hospitalized for further evaluation of their emergent condition. - New Patient This patient is new to me today: Yes Date on this admission: 04/18/18 - Critical Care Critical Care patient: No - Discharge Referral Referred to [facility] Med P.C.: No
[2018-04-18] MEDS: GABAPENTIN 100 MG CAPSULE (FP) PO SCH (21:25)
[2018-04-18] MEDS: ATORVASTATIN CA 10 MG TABLET (FP) PO SCH (21:25)
[2018-04-18] MEDS: MINOXIDIL 10 MG TABLET PO SCH (21:46)
[2018-04-19] MEDS: HEPARIN NA (PORCINE) 5,000 UNITS/ML 1ML VIAL SQ SCH ×3 (05:56→23:32)
[2018-04-19] MEDS: LABETALOL HCL 200 MG TABLET (FP) PO SCH ×3 (05:56→23:33)
[2018-04-19] MEDS: CALCIUM ACETATE 667 MG CAPSULE (FP) PO SCH ×3 (07:50→17:00)
[2018-04-19] MEDS: FERROUS SO4 325 MG TABLET (FP) PO SCH ×3 (07:50→17:00)
--- NOTE | 2018-04-19 08:51 | PN ---
Physical Exam: SUBJECTIVE: Patient seen and examined. Pt states she is feeling better, her cough is less. OBJECTIVE: Vital Signs Period Temp Pulse Resp BP Sys/Parker Pulse Ox Last 24 Hr 97.3 F-98.8 F 64-74 18-20 136-154/57-70 95-99 PE Neuro: alert, awake, cn 2-12intact Pulm: clear, scattered crackles + cough CV: s1 s2 rrr + 2/6 murmur Abd: s nt nd +bs Ext: warm, no le edema , r foot ulcer 3rd toe open drainage mild tenderness to palpation Active Medications Generic Name Dose Route Start Last Admin Trade Name Freq PRN Reason Stop Dose Admin Ascorbic Acid 500 mg 04/18/18 10:00 04/18/18 11:01 Vitamin C - PO 500 mg DAILY KARINA Administration Aspirin 81 mg 04/18/18 10:00 04/18/18 09:46 Asa - PO 81 mg DAILY KARINA Administration Atorvastatin Calcium 10 mg 04/15/18 22:00 04/18/18 21:25 Lipitor - PO 10 mg HS KARINA Administration Bacitracin 1 applic 04/17/18 14:30 04/18/18 11:01 Bacitracin - TP 1 applic DAILY KARINA Administration Calcium Acetate 667 mg 04/16/18 08:00 04/19/18 07:50 Phoslo - PO 667 mg TIDCM KARINA Administration Docusate Sodium 100 mg 04/15/18 22:00 04/18/18 21:26 Colace - PO 100 mg HS KARINA Administration Docusate Sodium 100 mg 04/17/18 22:00 04/18/18 21:27 Colace - PO Not Given BID KARINA Epoetin Arturo 10,000 unit 04/19/18 13:20 Procrit - SQ 04/19/18 13:21 ONCE ONE Ferrous Sulfate 325 mg 04/17/18 17:30 04/19/18 07:50 Feosol - PO 325 mg TIDCM KARINA Administration Gabapentin 100 mg 04/15/18 22:00 04/18/18 21:25 Neurontin - PO 100 mg HS KARINA Administration Guaifenesin 10 ml 04/16/18 11:55 04/17/18 22:04 Diabetic Tussin Dm - PO 10 ml Q4H PRN Administration COUGH Heparin Sodium (Porcine) 5,000 unit 04/15/18 06:00 04/19/18 05:56 Heparin - SQ 5,000 unit TID KARINA Administration Azithromycin 250 mg/ Dextrose 250 mls @ 250 mls/hr 04/16/18 11:45 04/18/18 12 :22 IVPB 04/20/18 11:44 250 mls/hr DAILY KARINA Administration Ceftriaxone Sodium 1 gm/ 50 mls @ 100 mls/hr 04/16/18 11:30 04/18/18 11:01 Dextrose IVPB 100 mls/hr DAILY KARINA Administration Labetalol HCl 200 mg 04/15/18 18:09 04/19/18 05:56 Normodyne - PO 200 mg TID KARINA Administration Losartan Potassium 100 mg 04/16/18 10:00 04/18/18 09:45 Cozaar - PO 100 mg DAILY KARINA Administration Minoxidil 10 mg 04/15/18 22:00 04/18/18 21:46 Loniten - PO 10 mg HS KARINA Administration Nifedipine 60 mg 04/15/18 22:00 04/18/18 21:26 Procardia Xl - PO 60 mg BID KARINA Administration Imaging: - ECHO noted, no significant change from last year 02/2017, LVSF nml Assessment: 72 year old female with pmh of ESRD MWF, CHF, DM2, HTN who presents to ED with two weeks of worsening productive cough, SOB and LE edema. Plan: 1. Acute on chronic diastolic CHF exacerbation - Improved with HD - HD per Renal - Continue labetalol, lorsartan - Cardiology following 2. CAP - Continue ceftriaxone (day 5), azithro 3. ESRD, MWF - HD per renal 4. Anemia of chronic disease, iron deficient - Started ferrous sulfate 5. HTN - Cont current meds 6. R foot wound - CTA shows total occlusion of anterior tibial - Angiogram vs MRI r/o osteo, d/w vascular will follow 7. DVT - Heparin sq Visit type - Emergency Visit Emergency Visit: Yes ED Registration Date: 04/15/18 Care time: The patient presented to the Emergency Department on the above date and was hospitalized for further evaluation of their emergent condition. - New Patient This patient is new to me today: No - Critical Care Critical Care patient: No
[2018-04-19] MEDS ORDERED: DEXTROSE 5%-WATER - 50 ML IVPB ONE (09:47)
[2018-04-19] MEDS ORDERED: cefTRIAXone SODIUM 1 GM VIAL ONE (09:47)
[2018-04-19] MEDS ORDERED: PT OWN MED DRAWER 7, Y5N ONE ×2 (09:47→21:09)
[2018-04-19] MEDS: NIFEdipine E.R 60 MG TABLET (UD) PO SCH ×2 (09:50→23:33)
[2018-04-19] MEDS: ASPIRIN 81 MG CHEWABLE TABLETS PO SCH (09:50)
[2018-04-19] MEDS: CEFTRIAXONE 1 GM in DEXTROSE 5%-WATER - 50 ML IVPB SCH (09:50)
[2018-04-19] MEDS: LOSARTAN POTASSIUM 50 MG TABLET (FP) PO SCH (09:51)
[2018-04-19] MEDS: DOCUSATE SODIUM 100 MG CAPSULE (FP) PO SCH ×3 (09:51→23:31)
[2018-04-19] MEDS: ASCORBIC ACID 500 MG TABLET (FP) PO SCH (09:51)
--- NOTE | 2018-04-19 11:25 | PN ---
Progress Note, Physician History of Present Illness: Dyspnea, orthopnea, bilateral lower extremity edema and cough improving with HD and BP control. - Current Medication List Current Medications: Active Medications Ascorbic Acid (Vitamin C -) 500 mg PO DAILY [facility] Last Admin: 04/19/18 09:51 Dose: 500 mg Aspirin (Asa -) 81 mg PO DAILY [facility] Last Admin: 04/19/18 09:50 Dose: 81 mg Atorvastatin Calcium (Lipitor -) 10 mg PO [facility] Last Admin: 04/18/18 21:25 Dose: 10 mg Bacitracin (Bacitracin -) 1 applic TP DAILY [facility] Last Admin: 04/18/18 11:01 Dose: 1 applic Calcium Acetate (Phoslo -) 667 mg PO TIDCM [facility] Last Admin: 04/19/18 07:50 Dose: 667 mg Docusate Sodium (Colace -) 100 mg PO [facility] Last Admin: 04/18/18 21:26 Dose: 100 mg Docusate Sodium (Colace -) 100 mg PO BID [facility] Last Admin: 04/19/18 09:51 Dose: 100 mg Epoetin Arturo (Procrit -) 10,000 unit SQ ONCE ONE Stop: 04/19/18 13:21 Ferrous Sulfate (Feosol -) 325 mg PO TIDCM [facility] Last Admin: 04/19/18 07:50 Dose: 325 mg Gabapentin (Neurontin -) 100 mg PO [facility] Last Admin: 04/18/18 21:25 Dose: 100 mg Guaifenesin (Diabetic Tussin Dm -) 10 ml PO Q4H PRN PRN Reason: COUGH Last Admin: 04/17/18 22:04 Dose: 10 ml Heparin Sodium (Porcine) (Heparin -) 5,000 unit SQ TID [facility] Last Admin: 04/19/18 05:56 Dose: 5,000 unit Azithromycin 250 mg/ Dextrose 250 mls @ 250 mls/hr IVPB DAILY [facility] Stop: 04/20/18 11:44 Last Admin: 04/18/18 12:22 Dose: 250 mls/hr Ceftriaxone Sodium 1 gm/ (Dextrose) 50 mls @ 100 mls/hr IVPB DAILY [facility] Last Admin: 04/19/18 09:50 Dose: 100 mls/hr Labetalol HCl (Normodyne -) 200 mg PO TID [facility] Last Admin: 04/19/18 05:56 Dose: 200 mg Losartan Potassium (Cozaar -) 100 mg PO DAILY [facility] Last Admin: 04/19/18 09:51 Dose: 100 mg Minoxidil (Loniten -) 10 mg PO HS [facility] Last Admin: 04/18/18 21:46 Dose: 10 mg Nifedipine (Procardia Xl -) 60 mg PO BID [facility] Last Admin: 04/19/18 09:50 Dose: 60 mg - Objective Vital Signs: Vital Signs Temperature 97.3 F L 04/19/18 08:12 Pulse Rate 64 04/19/18 08:12 Respiratory Rate 18 04/19/18 08:12 Blood Pressure 146/61 04/19/18 08:12 O2 Sat by Pulse Oximetry (%) 97 04/18/18 20:43 Constitutional: Yes: No Distress, Calm Neck: Yes: Supple Cardiovascular: Yes: Regular Rate and Rhythm Respiratory: Yes: Regular, CTA Bilaterally Gastrointestinal: Yes: Normal Bowel Sounds, Soft, Abdomen, Obese Edema: No Labs: CBC, BMP 04/17/18 06:15 04/15/18 05:55 INR, PTT INR 1.15 (0.82-1.09) H 04/15/18 05:55 Problem List - Problems (1) Shortness of breath Code(s): R06.02 - SHORTNESS OF BREATH (2) ESRD (end stage renal disease) on dialysis Code(s): N18.6 - END STAGE RENAL DISEASE; Z99.2 - DEPENDENCE ON RENAL DIALYSIS (3) Acute on chronic diastolic (congestive) heart failure Code(s): I50.33 - ACUTE ON CHRONIC DIASTOLIC (CONGESTIVE) HEART FAILURE (4) Diabetes type 2, controlled Code(s): E11.9 - TYPE 2 DIABETES MELLITUS WITHOUT COMPLICATIONS Qualifiers: Diabetes mellitus complication status: with kidney complications Chronic kidney disease stage: stage 5, not on chronic dialysis (5) Hypertensive urgency Code(s): I10 - ESSENTIAL (PRIMARY) HYPERTENSION (6) Anemia, chronic renal failure Code(s): N18.9 - CHRONIC KIDNEY DISEASE, UNSPECIFIED; D63.1 - ANEMIA IN CHRONIC KIDNEY DISEASE (7) Hyperlipidemia Code(s): E78.5 - HYPERLIPIDEMIA, UNSPECIFIED Qualifiers: Hyperlipidemia type: pure hypercholesterolemia Qualified Code(s): E78.00 - Pure hypercholesterolemia, unspecified; E78.0 - Pure hypercholesterolemia (8) Hypertensive renal disease Code(s): I12.9 - HYPERTENSIVE CHRONIC KIDNEY DISEASE W STG 1-4/UNSP CHR KDNY (9) Peripheral artery disease Code(s): I73.9 - PERIPHERAL VASCULAR DISEASE, UNSPECIFIED Assessment/Plan 04/15/2018 Mild cLVH, normal LV fxn, mild TR, tr AR 1. Acute on chonic diastolic failure in context of 2. Hypertensive urgency 3. RUL PNA 4. ESRD->HD MWF 5. Type 2 DM 6. PAD with right foot CLI P:1. Volume removal via HD 2. Continue losartan 100 qd, labetolol 200 tid, Procardial XL 60 bid, Lipitor 10 qhs, Minoxidil 10 qhs, and ASA 81 qd 3. Complete empiric abx course 4. Emphasized importance of diet, medication and HD compliance 5. Wound care, CTA shows mod-severe fem-pop disease L>R, plan for angiogram. DVT prophylaxis
[2018-04-19] MEDS: AZITHROMYCIN IVPB 250 MG in DEXTROSE 5%-WATER - 250 ML IVPB SCH (12:39)
--- NOTE | 2018-04-19 13:00 | PN ---
Progress Note, Physician History of Present Illness: The patient seen in her room. 72 yo F w/ PMH of ESRD (dialysis MWF) at [facility] dialysis unit, CHF , HTN, DM2, who presents with worsening cough and SOB over the last two weeks. Pt has a productive cough that began two week ago and worsening SOB with activity. She has a right foot gangrene, and is scheduled for an angiogram today. Will dialyze after the same. - Current Medication List Current Medications: Active Medications Ascorbic Acid (Vitamin C -) 500 mg PO DAILY [facility] Last Admin: 04/19/18 09:51 Dose: 500 mg Aspirin (Asa -) 81 mg PO DAILY [facility] Last Admin: 04/19/18 09:50 Dose: 81 mg Atorvastatin Calcium (Lipitor -) 10 mg PO HS [facility] Last Admin: 04/18/18 21:25 Dose: 10 mg Bacitracin (Bacitracin -) 1 applic TP DAILY [facility] Last Admin: 04/18/18 11:01 Dose: 1 applic Calcium Acetate (Phoslo -) 667 mg PO TIDCM [facility] Last Admin: 04/19/18 12:36 Dose: Not Given Docusate Sodium (Colace -) 100 mg PO HS [facility] Last Admin: 04/18/18 21:26 Dose: 100 mg Docusate Sodium (Colace -) 100 mg PO BID [facility] Last Admin: 04/19/18 09:51 Dose: 100 mg Epoetin Arturo (Procrit -) 10,000 unit SQ ONCE ONE Stop: 04/19/18 13:21 Ferrous Sulfate (Feosol -) 325 mg PO TIDCM [facility] Last Admin: 04/19/18 12:36 Dose: Not Given Gabapentin (Neurontin -) 100 mg PO HS [facility] Last Admin: 04/18/18 21:25 Dose: 100 mg Guaifenesin (Diabetic Tussin Dm -) 10 ml PO Q4H PRN PRN Reason: COUGH Last Admin: 04/17/18 22:04 Dose: 10 ml Heparin Sodium (Porcine) (Heparin -) 5,000 unit SQ TID [facility] Last Admin: 04/19/18 05:56 Dose: 5,000 unit Azithromycin 250 mg/ Dextrose 250 mls @ 250 mls/hr IVPB DAILY [facility] Stop: 04/20/18 11:44 Last Admin: 04/19/18 12:39 Dose: 250 mls/hr Labetalol HCl (Normodyne -) 200 mg PO TID [facility] Last Admin: 04/19/18 05:56 Dose: 200 mg Losartan Potassium (Cozaar -) 100 mg PO DAILY [facility] Last Admin: 04/19/18 09:51 Dose: 100 mg Minoxidil (Loniten -) 10 mg PO HS [facility] Last Admin: 04/18/18 21:46 Dose: 10 mg Nifedipine (Procardia Xl -) 60 mg PO BID [facility] Last Admin: 04/19/18 09:50 Dose: 60 mg - Objective Vital Signs: Vital Signs Temperature 97.3 F L 04/19/18 08:12 Pulse Rate 64 04/19/18 08:12 Respiratory Rate 18 04/19/18 09:00 Blood Pressure 146/61 04/19/18 08:12 O2 Sat by Pulse Oximetry (%) 97 04/19/18 09:00 Constitutional: Yes: No Distress, Anxious Eyes: Yes: Conjunctiva Clear HENT: Yes: Normocephalic Cardiovascular: Yes: Regular Rate and Rhythm, Murmur, S1, S2 Respiratory: Yes: Regular, Rhonchi Gastrointestinal: Yes: Normal Bowel Sounds, Soft Musculoskeletal: No: Joint Stiffness Neurological: Yes: Alert Labs: CBC, BMP 04/17/18 06:15 04/15/18 05:55 INR, PTT INR 1.15 (0.82-1.09) H 04/15/18 05:55 Problem List - Problems (1) Shortness of breath Code(s): R06.02 - SHORTNESS OF BREATH (2) ESRD (end stage renal disease) on dialysis Code(s): N18.6 - END STAGE RENAL DISEASE; Z99.2 - DEPENDENCE ON RENAL DIALYSIS (3) AV fistula Code(s): I77.0 - ARTERIOVENOUS FISTULA, ACQUIRED (4) Acute on chronic diastolic (congestive) heart failure Code(s): I50.33 - ACUTE ON CHRONIC DIASTOLIC (CONGESTIVE) HEART FAILURE (5) Anemia Code(s): D64.9 - ANEMIA, UNSPECIFIED Qualifiers: Anemia type: unspecified type Qualified Code(s): D64.9 - Anemia, unspecified (6) Bleeding from dialysis shunt Code(s): T82.838A - HEMORRHAGE DUE TO VASCULAR PROSTH DEV/GRFT, INIT Qualifiers: Encounter type: initial encounter Qualified Code(s): T82.838A - Hemorrhage due to vascular prosthetic devices, implants and grafts, initial encounter (7) Diabetes type 2, controlled Code(s): E11.9 - TYPE 2 DIABETES MELLITUS WITHOUT COMPLICATIONS Qualifiers: Diabetes mellitus complication status: with kidney complications Chronic kidney disease stage: stage 5, not on chronic dialysis (8) Foot pain, right Code(s): M79.671 - PAIN IN RIGHT FOOT (9) Paroxysmal atrial fibrillation Code(s): I48.0 - PAROXYSMAL ATRIAL FIBRILLATION (10) End stage renal disease Code(s): N18.6 - END STAGE RENAL DISEASE (11) Hypertension Code(s): I10 - ESSENTIAL (PRIMARY) HYPERTENSION Qualifiers: Hypertension type: essential hypertension Qualified Code(s): I10 - Essential (primary) hypertension (12) Congestive heart failure Code(s): I50.9 - HEART FAILURE, UNSPECIFIED Assessment/Plan 72 yo F w/ PMH of ESRD (dialysis MWF) at [facility] dialysis unit, CHF , HTN, DM2, who presents with worsening cough and SOB over the last two weeks. She also had anterior chest wall pain and upper back pain from persistent cough , in addition to increased edema in her legs BL. Acute Congestive Heart failure in this 72 y/o female with ESRD, and volume overload. Resolved. The right foot gangrene is painful. Vascular evaluation in progress. For Angiogram today and dialysis after. Persitent cough, on ABx BP improved. Will dialyze after the angiogram today. Thank you. Will follow the patient with you. Sobeida Chavez MD
[2018-04-19] MEDS ORDERED: LIDOCAINE HCL 1%, 10 MG/ML (20ML VIAL) ONE (13:57)
[2018-04-19] MEDS ORDERED: EPOETIN ALFA 10,000 UNIT/1 ML VIAL SQ ONE ×2 (17:15→19:15)
[2018-04-19] MEDS ORDERED: MIDAZOLAM HCL 2 MG/2 ML SINGLE DOSE VIAL ONE (17:22)
[2018-04-19] MEDS ORDERED: ceFAZolin SODIUM 1 GM VIAL IVPB ONE (17:25)
[2018-04-19] MEDS ORDERED: ceFAZolin SODIUM 1 GM VIAL ONE (17:42)
--- NOTE | 2018-04-19 18:04 | OP ---
Operative Note - Note: Operative Date: 04/19/18 Pre-Operative Diagnosis: right foot ulcer Operation: Aortogram, RLE angiogram Findings: No areas of stenosis. Post-Operative Diagnosis: Same as Pre-op Anesthesia: Fractional Estimated Blood Loss (mls): 20 Operative Report Dictated: Yes
--- NOTE | 2018-04-19 18:11 | PN ---
Progress Note (short form) - Note Progress Note: Vascular surgery S/P angiogram of right lower ext. No areas of stenosis or occlusions. cont santyl to the right foot. For the ulcer on the foot -- recc MRI to rule out osteo. The ulcer has been there since dec according to the pt. Enmanuel lopez DO
[2018-04-19] MEDS ORDERED: ONDANSETRON 4 MG/2 ML VIAL IVPUSH PRN (18:12)
[2018-04-19] MEDS ORDERED: guaiFENesin/D-M SUGAR-FREE/ACLHOL-FREE 118 ML BOTTLE PO PRN (18:33)
[2018-04-19 20:19] LABS: BASO % 1.2 % (0-2.0); HEMATOCRIT 26.7 % (32.4-45.2); HEMOGLOBIN 8.5 GM/dL (10.7-15.3); LYMPH % 16.8 % (8-40); MCH 26.1 pg (25.7-33.7); MCHC 31.9 g/dl (32.0-36.0); MEAN CELL VOLUME 82.1 fl (80-96); MEAN PLT VOLUME 9.1 fl (7.5-11.1); MONO % 7.7 % (3.8-10.2); NEUT % 66.3 % (42.8-82.8); PLATELET COUNT 226 K/MM3 (134-434); RBC 3.25 M/mm3 (3.60-5.2); WHITE BLOOD COUNT 5.7 K/mm3 (4.0-10.0)
[2018-04-19 20:48] LABS: ALBUMIN 3.7 g/dl (3.4-5.0); ALK PHOS 121 U/L (45-117); ANION GAP 8 (8-16); BILIRUBIN,TOTAL 0.5 mg/dL (0.2-1.0); BLOOD UREA NITROGEN 46 mg/dL (7-18); CALCIUM 8.7 mg/dL (8.5-10.1); CHLORIDE 93 mmol/L (98-107); CO2 32 mmol/L (21-32); CREATININE 5.9 mg/dL (0.55-1.02); GLUCOSE,RANDOM 151 mg/dL (74-106); POTASSIUM 5.5 mmol/L (3.5-5.1); SGOT/AST 14 U/L (15-37); SGPT/ALT 21 U/L (12-78); SODIUM 133 mmol/L (136-145); TOT PROT 7.7 g/dl (6.4-8.2)
--- NOTE | 2018-04-19 21:32 | OP ---
DATE OF OPERATION: 04/19/2018 PREOPERATIVE DIAGNOSIS: Right foot ulcer. POSTOPERATIVE DIAGNOSIS: Right foot ulcer. PROCEDURE: Aortogram, right lower extremity angiogram. SURGEON: Enmanuel Rose DO ANESTHESIA: Fractional. BLOOD LOSS: 20 mL The patient is a 72-year-old female who has an ulcer on her right forefoot and toe since December. She had a CTA preoperatively, showing lots of calcifications with multi-focal disease, and it was felt that she would need an angiogram. Patient was consented for the procedure, understanding all risks, benefits, and alternatives and then taken to the operating room. Once in the operating room, she was laid on the operating table in supine manner, and the areas of the right and left groins were prepped and draped in a sterile surgical manner. We then went ahead and injected 10 mL of lidocaine 1% over the left common femoral artery. We then took our micropuncture needle, punctured the left common femoral artery. Micropuncture wire was inserted. Micropuncture sheath was inserted, and then, a traditional 5-Anguillan sheath was inserted. A 0.035 floppy guidewire was inserted into the aorta, followed by an Omni Flush catheter. We then shot an aortogram by hand injection, showing that the aorta and the iliac arteries were without any disease. We then took our 0.035 floppy guidewire and brought it up and over to the right common femoral artery, followed by the Omni Flush catheter. We then shot an angiogram of the right lower extremity, showing that the common femoral artery, the profunda, and the SFA were patent. Popliteal artery was patent. Anterior tibial artery and posterior tibial artery were occluded, and the main runoff is a robust peroneal artery going down to the ankle and giving branches off to the posterior tibial artery which feeds the entire plantar surface of the foot. At this point, there was no more intervention needed. We brought our Omni Flush catheter up and over, removed the sheath from the left groin. Pressure was held for 5 minutes. After there was no bleeding, area was wet and dried, and Dermabond was placed. Patient tolerated the procedure with no complication. Patient transferred to PACU in stable condition. ENMANUEL ROSE DO SYSTEMS ENGINEERING MANAGER/[id number]
[2018-04-19] MEDS: ATORVASTATIN CA 10 MG TABLET (FP) PO SCH (23:32)
[2018-04-19] MEDS: MINOXIDIL 10 MG TABLET PO SCH (23:32)
[2018-04-19] MEDS: GABAPENTIN 100 MG CAPSULE (FP) PO SCH (23:33)
[2018-04-20] MEDS: LABETALOL HCL 200 MG TABLET (FP) PO SCH ×3 (05:56→21:16)
[2018-04-20] MEDS: HEPARIN NA (PORCINE) 5,000 UNITS/ML 1ML VIAL SQ SCH ×3 (05:56→21:19)
[2018-04-20] MEDS ORDERED: PT OWN MED DRAWER 7, Y5N ONE ×2 (09:37→21:14)
[2018-04-20] MEDS ORDERED: AZITHROMYCIN IVPB 250 MG in DEXTROSE 5%-WATER - 250 ML IVPB SCH (10:00)
--- NOTE | 2018-04-20 10:08 | PN ---
Progress Note, Physician Chief Complaint: Pt resting comfortably, pain controlled, no anesthesia complaints. - Current Medication List Current Medications: Active Medications Ascorbic Acid (Vitamin C -) 500 mg PO DAILY [facility] Aspirin (Asa -) 81 mg PO DAILY [facility] Atorvastatin Calcium (Lipitor -) 10 mg PO HS [facility] Last Admin: 04/19/18 23:32 Dose: 10 mg Bacitracin (Bacitracin -) 1 applic TP DAILY [facility] Calcium Acetate (Phoslo -) 667 mg PO TIDCM [facility] Docusate Sodium (Colace -) 100 mg PO HS [facility] Last Admin: 04/19/18 23:31 Dose: Not Given Docusate Sodium (Colace -) 100 mg PO BID [facility] Last Admin: 04/19/18 23:31 Dose: 100 mg Ferrous Sulfate (Feosol -) 325 mg PO TIDCM [facility] Gabapentin (Neurontin -) 100 mg PO HS [facility] Last Admin: 04/19/18 23:33 Dose: 100 mg Guaifenesin (Diabetic Tussin Dm -) 10 ml PO Q4H PRN PRN Reason: COUGH Heparin Sodium (Porcine) (Heparin -) 5,000 unit SQ TID [facility] Last Admin: 04/20/18 05:56 Dose: 5,000 unit Azithromycin 250 mg/ Dextrose 250 mls @ 250 mls/hr IVPB DAILY [facility] Stop: 04/20/18 11:44 Labetalol HCl (Normodyne -) 200 mg PO TID [facility] Last Admin: 04/20/18 05:56 Dose: 200 mg Losartan Potassium (Cozaar -) 100 mg PO DAILY [facility] Minoxidil (Loniten -) 10 mg PO HS [facility] Last Admin: 04/19/18 23:32 Dose: 10 mg Nifedipine (Procardia Xl -) 60 mg PO BID [facility] Last Admin: 04/19/18 23:33 Dose: 60 mg - Objective Vital Signs: Vital Signs Temperature 98.9 F 04/20/18 07:53 Pulse Rate 75 04/20/18 07:53 Respiratory Rate 20 04/20/18 07:53 Blood Pressure 139/66 04/20/18 07:53 O2 Sat by Pulse Oximetry (%) 96 04/20/18 07:53 Constitutional: Yes: Well Nourished, No Distress, Calm Neurological: Yes: WNL, Alert, Oriented Labs: CBC, BMP 04/19/18 20:00 04/19/18 20:00 INR, PTT INR 1.15 (0.82-1.09) H 04/15/18 05:55 Assessment/Plan POD#1 s/p RLE Angiogram under MAC. Doing well. D/C from anesthesia care.
--- NOTE | 2018-04-20 10:22 | PN ---
Physical Exam: SUBJECTIVE: Patient seen and examined. Pt is feeling tired, HD finished late. She has some pain to her L groin site from angiogram. Bleeding has stopped. OBJECTIVE: Vital Signs Period Temp Pulse Resp BP Sys/Parker Pulse Ox Last 24 Hr 98.0 F-98.9 F 62-79 16-20 132-179/60-81 95-98 PE Neuro: alert, awake, cn 2-12intact Pulm: rhonchi, wet cough CV: s1 s2 rrr + 2/6 murmur Abd: s nt nd +bs Ext: warm, no le edema , r foot ulcer 3rd toe open drainage skin: L groin dressing dried blood Laboratory Results - last 24 hr 04/19/18 04/19/18 04/19/18 20:00 20:00 20:00 WBC 5.7 RBC 3.25 L Hgb 8.5 L Hct 26.7 L MCV 82.1 MCH 26.1 MCHC 31.9 L RDW 17.0 H Plt Count 226 MPV 9.1 D Absolute Neuts (auto) 3.8 Neutrophils % 66.3 Lymphocytes % 16.8 Monocytes % 7.7 Eosinophils % 8.0 H Basophils % 1.2 Nucleated RBC % 0 Sodium 133 L Potassium 5.5 H Chloride 93 L Carbon Dioxide 32 Anion Gap 8 BUN 46 H Creatinine 5.9 H Creat Clearance w eGFR 7.03 Random Glucose 151 H Calcium 8.7 Total Bilirubin 0.5 AST 14 L ALT 21 Alkaline Phosphatase 121 H Total Protein 7.7 Albumin 3.7 Blood Type O POSITIVE Antibody Screen Negative Active Medications Generic Name Dose Route Start Last Admin Trade Name Michelq PRN Reason Stop Dose Admin Acetaminophen 650 mg 04/20/18 10:21 Tylenol - PO 04/20/18 10:22 ONCE ONE Ascorbic Acid 500 mg 04/20/18 10:00 Vitamin C - PO DAILY KARINA Aspirin 81 mg 04/20/18 10:00 Asa - PO DAILY [facility]INA Atorvastatin Calcium 10 mg 04/19/18 22:00 04/19/18 23:32 Lipitor - PO 10 mg HS KARINA Administration Bacitracin 1 applic 04/20/18 10:00 Bacitracin - TP DAILY [facility] Calcium Acetate 667 mg 04/20/18 08:00 Phoslo - PO TIDCM [facility] Docusate Sodium 100 mg 04/19/18 22:00 04/19/18 23:31 Colace - PO Not Given HS KARINA Docusate Sodium 100 mg 04/19/18 22:00 04/19/18 23:31 Colace - PO 100 mg BID KARINA Administration Ferrous Sulfate 325 mg 04/20/18 08:00 Feosol - PO TIDCM [facility] Gabapentin 100 mg 04/19/18 22:00 04/19/18 23:33 Neurontin - PO 100 mg HS [facility]ARINA Administration Guaifenesin 10 ml 04/19/18 18:33 Diabetic Tussin Dm - PO Q4H PRN COUGH Heparin Sodium (Porcine) 5,000 unit 04/19/18 22:00 04/20/18 05:56 Heparin - SQ 5,000 unit TID KARINA Administration Azithromycin 250 mg/ Dextrose 250 mls @ 250 mls/hr 04/20/18 10:00 IVPB 04/20/18 11:44 DAILY [facility] Labetalol HCl 200 mg 04/19/18 22:00 04/20/18 05:56 Normodyne - PO 200 mg TID [facility]INA Administration Losartan Potassium 100 mg 04/20/18 10:00 Cozaar - PO DAILY [facility] Minoxidil 10 mg 04/19/18 22:00 04/19/18 23:32 Loniten - PO 10 mg HS [facility] Administration Nifedipine 60 mg 04/19/18 22:00 04/19/18 23:33 Procardia Xl - PO 60 mg BID [facility] Administration Imaging: - ECHO noted, no significant change from last year 02/2017, LVSF nml Assessment: 72 year old female with pmh of ESRD MWF, CHF, DM2, HTN who presents to ED with two weeks of worsening productive cough, SOB and LE edema. Plan: 1. Acute on chronic diastolic CHF exacerbation - HD per Renal - Continue labetalol, lorsartan - Cardiology following 2. CAP - Continue ceftriaxone (day 6), azithro stopped 3. ESRD, MWF - HD per renal 4. Anemia of chronic disease, iron deficient - Started ferrous sulfate 5. HTN - Cont current meds 6. R foot wound - s/p angiogram 04/19, no areas of stenosis or occlusions - MRI R foot r/o oste 7. DVT - Heparin sq Visit type - Emergency Visit Emergency Visit: Yes ED Registration Date: 04/15/18 Care time: The patient presented to the Emergency Department on the above date and was hospitalized for further evaluation of their emergent condition. - New Patient This patient is new to me today: No - Critical Care Critical Care patient: No
[2018-04-20] MEDS: FERROUS SO4 325 MG TABLET (FP) PO SCH ×3 (10:26→19:00)
[2018-04-20] MEDS: ASPIRIN 81 MG CHEWABLE TABLETS PO SCH (10:26)
[2018-04-20] MEDS: LOSARTAN POTASSIUM 50 MG TABLET (FP) PO SCH (10:26)
[2018-04-20] MEDS: NIFEdipine E.R 60 MG TABLET (UD) PO SCH ×2 (10:26→21:20)
[2018-04-20] MEDS: CALCIUM ACETATE 667 MG CAPSULE (FP) PO SCH ×3 (10:27→19:00)
[2018-04-20] MEDS: DOCUSATE SODIUM 100 MG CAPSULE (FP) PO SCH ×3 (10:27→21:17)
[2018-04-20] MEDS: BACITRACIN 15 GM TUBE TOPICAL OINTMENT TP SCH (10:27)
[2018-04-20] MEDS: ASCORBIC ACID 500 MG TABLET (FP) PO SCH (10:27)
[2018-04-20] MEDS ORDERED: ACETAMINOPHEN 325 MG TABLET (FP) PO ONE (11:00)
--- NOTE | 2018-04-20 11:25 | PN ---
Progress Note (short form) - Note Progress Note: Chief Complaint: Events noted, notes reviewed, denies any dyspnea, denies any chest pain, results of angiography noted History of Present Illness: Seen and examined on telemetry. Events noted, notes reviewed, denies any dyspnea , denies any chest pain, results of angiography noted Echocardiography dated 04/15/2018 revealed mild cLVH, normal LV systolic function, mild TR and trace AR Echocardiography dated 12/25/2016 revealed normal LV size with mild cLVH, normal LV function, mod LAE, mild-moderate MR, mild AI and TR with of RVSP 50-60 mmHg Medications: Current Medications Ascorbic Acid (Vitamin C -) 500 mg PO DAILY [facility] Last Admin: 04/20/18 10:27 Dose: 500 mg Aspirin (Asa -) 81 mg PO DAILY [facility] Last Admin: 04/20/18 10:26 Dose: 81 mg Atorvastatin Calcium (Lipitor -) 10 mg PO [facility] Last Admin: 04/19/18 23:32 Dose: 10 mg Bacitracin (Bacitracin -) 1 applic TP DAILY [facility] Last Admin: 04/20/18 10:27 Dose: 1 applic Calcium Acetate (Phoslo -) 667 mg PO TIDCM [facility] Last Admin: 04/20/18 10:27 Dose: 667 mg Docusate Sodium (Colace -) 100 mg PO [facility] Last Admin: 04/19/18 23:31 Dose: Not Given Docusate Sodium (Colace -) 100 mg PO BID [facility] Last Admin: 04/20/18 10:27 Dose: 100 mg Ferrous Sulfate (Feosol -) 325 mg PO TIDCM [facility] Last Admin: 04/20/18 10:26 Dose: 325 mg Gabapentin (Neurontin -) 100 mg PO [facility] Last Admin: 04/19/18 23:33 Dose: 100 mg Guaifenesin (Diabetic Tussin Dm -) 10 ml PO Q4H PRN PRN Reason: COUGH Heparin Sodium (Porcine) (Heparin -) 5,000 unit SQ TID [facility] Last Admin: 04/20/18 05:56 Dose: 5,000 unit Azithromycin 250 mg/ Dextrose 250 mls @ 250 mls/hr IVPB DAILY [facility] Stop: 04/20/18 11:44 Last Admin: 04/20/18 10:28 Dose: 250 mls/hr Labetalol HCl (Normodyne -) 200 mg PO TID [facility] Last Admin: 04/20/18 05:56 Dose: 200 mg Losartan Potassium (Cozaar -) 100 mg PO DAILY [facility] Last Admin: 04/20/18 10:26 Dose: 100 mg Minoxidil (Loniten -) 10 mg PO HS [facility] Last Admin: 04/19/18 23:32 Dose: 10 mg Nifedipine (Procardia Xl -) 60 mg PO BID [facility] Last Admin: 04/20/18 10:26 Dose: 60 mg Review of Systems - Review of Systems Constitutional: denies: Chills, Fever Cardiovascular: As noted above Respiratory: denies: Cough or Sputum Production Gastrointestinal: denies: Nausea, Vomiting, Diarrhea, Constipation or Abdominal Pain Musculoskeletal: No symptoms reported Neurological: denies: Dizziness or Headaches Vital Signs: Last Vital Signs Temp Pulse Resp BP Pulse Ox 98.9 F 75 20 139/66 96 04/20/18 07:53 04/20/18 07:53 04/20/18 07:53 04/20/18 07:53 04/20/18 07:53 Intake & Output 04/17/18 04/18/18 04/19/18 04/20/18 23:59 23:59 23:59 23:59 Intake Total 303 436 2887 Balance 487 826 6122 Weight 154 lb 9.6 oz 155 lb 4 oz 155 lb Constitutional: No Distress, Calm Neck: Supple Negative JVD Respiratory: diminished Breath Sounds at the Bases Bilateral Scattered Rhonchi Cardiovascular: S1 S2 Regular Rate and Rhythm Grade 2/6 JAEL Gastrointestinal: Soft Benign Normal Bowel Sounds Ext: No Edema Lab Data: CBC, BMP 04/19/18 20:00 04/19/18 20:00 Hepatic Panel Total Bilirubin 0.5 mg/dL (0.2-1.0) 04/19/18 20:00 AST 14 U/L (15-37) L 04/19/18 20:00 ALT 21 U/L (12-78) 04/19/18 20:00 Alkaline Phosphatase 121 U/L (45-117) H 04/19/18 20:00 Albumin 3.7 g/dl (3.4-5.0) 04/19/18 20:00 INR, PTT INR 1.15 (0.82-1.09) H 04/15/18 05:55 Assessment/Plan ASSESSMENT: 1. Acute on chronic LV diastolic failure class II-III NYHA classification LV failure, resolved precipitated by 2. Hypertensive urgency 3. Right upper lobe pneumonia, resolving 4. DM 5. Hyperlipidemia 6. ESRD on HD 7. PAD PLAN: 1. HD as per renal service 2. Continue Labetolol and titrate dosage as needed 3. Continue Procardia 4. Continue Cozaar 5. Continue Minoxidil 6. Continue Lipitor 7. Antibiotics as per the primary team Violette Moyer MD
[2018-04-20] MEDS: GABAPENTIN 100 MG CAPSULE (FP) PO SCH (21:16)
[2018-04-20] MEDS: ATORVASTATIN CA 10 MG TABLET (FP) PO SCH (21:16)
[2018-04-20] MEDS: MINOXIDIL 10 MG TABLET PO SCH (21:19)
--- NOTE | 2018-04-20 21:51 | PN ---
Progress Note (short form) - Note Progress Note: 72 yo F w/ PMH of ESRD (dialysis MWF) at [facility] dialysis unit, CHF, HTN, DM2, right foot gangrene, s/p angiogram today s/p HD after angiogram Current Medications Ascorbic Acid (Vitamin C -) 500 mg PO DAILY [facility] Last Admin: 04/20/18 10:27 Dose: 500 mg Aspirin (Asa -) 81 mg PO DAILY [facility] Last Admin: 04/20/18 10:26 Dose: 81 mg Atorvastatin Calcium (Lipitor -) 10 mg PO [facility] Last Admin: 04/20/18 21:16 Dose: 10 mg Bacitracin (Bacitracin -) 1 applic TP DAILY [facility] Last Admin: 04/20/18 10:27 Dose: 1 applic Calcium Acetate (Phoslo -) 667 mg PO TIDCM [facility] Last Admin: 04/20/18 19:00 Dose: 667 mg Docusate Sodium (Colace -) 100 mg PO [facility] Last Admin: 04/20/18 21:17 Dose: 100 mg Docusate Sodium (Colace -) 100 mg PO BID [facility] Last Admin: 04/20/18 21:17 Dose: Not Given Ferrous Sulfate (Feosol -) 325 mg PO TIDCM [facility] Last Admin: 04/20/18 19:00 Dose: 325 mg Gabapentin (Neurontin -) 100 mg PO [facility] Last Admin: 04/20/18 21:16 Dose: 100 mg Guaifenesin (Diabetic Tussin Dm -) 10 ml PO Q4H PRN PRN Reason: COUGH Heparin Sodium (Porcine) (Heparin -) 5,000 unit SQ TID [facility] Last Admin: 04/20/18 21:19 Dose: 5,000 unit Labetalol HCl (Normodyne -) 200 mg PO TID [facility] Last Admin: 04/20/18 21:16 Dose: 200 mg Losartan Potassium (Cozaar -) 100 mg PO DAILY [facility] Last Admin: 04/20/18 10:26 Dose: 100 mg Minoxidil (Loniten -) 10 mg PO HS [facility] Last Admin: 04/20/18 21:19 Dose: 10 mg Nifedipine (Procardia Xl -) 60 mg PO BID [facility] Last Admin: 04/20/18 21:20 Dose: 60 mg Last Vital Signs Temp Pulse Resp BP Pulse Ox 98.5 F 71 18 158/74 96 06/16/18 15:00 04/20/18 15:00 04/20/18 15:00 04/20/18 15:00 04/20/18 07:53 alert in nad Lungs clear Heart reg Abd soft IMP esrd pvd- foot gangrene dm Plan- HD on Sunday
[2018-04-21] MEDS: LABETALOL HCL 200 MG TABLET (FP) PO SCH ×3 (05:41→21:21)
[2018-04-21] MEDS: HEPARIN NA (PORCINE) 5,000 UNITS/ML 1ML VIAL SQ SCH ×3 (05:41→21:20)
[2018-04-21] MEDS: CALCIUM ACETATE 667 MG CAPSULE (FP) PO SCH ×3 (08:10→17:17)
[2018-04-21] MEDS: FERROUS SO4 325 MG TABLET (FP) PO SCH ×3 (08:10→17:17)
[2018-04-21] MEDS: DOCUSATE SODIUM 100 MG CAPSULE (FP) PO SCH ×3 (09:11→21:20)
[2018-04-21] MEDS: ASPIRIN 81 MG CHEWABLE TABLETS PO SCH (09:11)
[2018-04-21] MEDS: BACITRACIN 15 GM TUBE TOPICAL OINTMENT TP SCH (09:11)
[2018-04-21] MEDS: LOSARTAN POTASSIUM 50 MG TABLET (FP) PO SCH (09:11)
[2018-04-21] MEDS: NIFEdipine E.R 60 MG TABLET (UD) PO SCH ×2 (09:12→21:21)
[2018-04-21] MEDS: ASCORBIC ACID 500 MG TABLET (FP) PO SCH (09:13)
--- NOTE | 2018-04-21 09:52 | PN ---
Progress Note (short form) - Note Progress Note: Chief Complaint: Events noted, notes reviewed, denies any dyspnea or orthopnea, denies any chest pain History of Present Illness: Seen and examined on telemetry. Events noted, notes reviewed, denies any dyspnea or orthopnea, denies any chest pain Echocardiography dated 04/15/2018 revealed mild cLVH, normal LV systolic function, mild TR and trace AR Echocardiography dated 12/25/2016 revealed normal LV size with mild cLVH, normal LV function, mod LAE, mild-moderate MR, mild AI and TR with of RVSP 50-60 mmHg Medications: Current Medications Ascorbic Acid (Vitamin C -) 500 mg PO DAILY [facility] Last Admin: 04/21/18 09:13 Dose: 500 mg Aspirin (Asa -) 81 mg PO DAILY [facility] Last Admin: 04/21/18 09:11 Dose: 81 mg Atorvastatin Calcium (Lipitor -) 10 mg PO [facility] Last Admin: 04/20/18 21:16 Dose: 10 mg Bacitracin (Bacitracin -) 1 applic TP DAILY [facility] Last Admin: 04/21/18 09:11 Dose: 1 applic Calcium Acetate (Phoslo -) 667 mg PO TIDCM [facility] Last Admin: 04/21/18 08:10 Dose: 667 mg Docusate Sodium (Colace -) 100 mg PO [facility] Last Admin: 04/20/18 21:17 Dose: 100 mg Docusate Sodium (Colace -) 100 mg PO BID [facility] Last Admin: 04/21/18 09:11 Dose: 100 mg Ferrous Sulfate (Feosol -) 325 mg PO TIDCM [facility] Last Admin: 04/21/18 08:10 Dose: 325 mg Gabapentin (Neurontin -) 100 mg PO [facility] Last Admin: 04/20/18 21:16 Dose: 100 mg Guaifenesin (Diabetic Tussin Dm -) 10 ml PO Q4H PRN PRN Reason: COUGH Heparin Sodium (Porcine) (Heparin -) 5,000 unit SQ TID [facility] Last Admin: 04/21/18 05:41 Dose: 5,000 unit Labetalol HCl (Normodyne -) 200 mg PO TID [facility] Last Admin: 04/21/18 05:41 Dose: 200 mg Losartan Potassium (Cozaar -) 100 mg PO DAILY [facility] Last Admin: 04/21/18 09:11 Dose: 100 mg Minoxidil (Loniten -) 10 mg PO HS [facility] Last Admin: 04/20/18 21:19 Dose: 10 mg Nifedipine (Procardia Xl -) 60 mg PO BID [facility] Last Admin: 04/21/18 09:12 Dose: 60 mg Review of Systems - Review of Systems Constitutional: denies: Chills, Fever Cardiovascular: As noted above Respiratory: denies: Cough or Sputum Production Gastrointestinal: denies: Nausea, Vomiting, Diarrhea, Constipation or Abdominal Pain Musculoskeletal: No symptoms reported Neurological: denies: Dizziness or Headaches Vital Signs: Last Vital Signs Temp Pulse Resp BP Pulse Ox 98.4 F 71 18 152/68 99 04/21/18 09:08 04/21/18 09:08 04/21/18 09:08 04/21/18 09:08 04/20/18 21:00 Intake & Output 04/18/18 04/19/18 04/20/18 04/21/18 23:59 23:59 23:59 23:59 Intake Total 980 1290 550 50 Output Total 0 Balance 980 1290 550 50 Weight 155 lb 4 oz 155 lb 157 lb 6.4 oz Constitutional: No Distress, Calm Neck: Supple Negative JVD Respiratory: diminished Breath Sounds at the Bases Bilateral Scattered Rhonchi Cardiovascular: S1 S2 Regular Rate and Rhythm Grade 2/6 JAEL Gastrointestinal: Soft Benign Normal Bowel Sounds Ext: No Edema Lab Data: CBC, BMP 04/19/18 20:00 04/19/18 20:00 Assessment/Plan ASSESSMENT: 1. Acute on chronic LV diastolic failure class II-III NYHA classification LV failure, resolved precipitated by 2. Hypertensive urgency, labile blood pressure 3. Right upper lobe pneumonia, resolving 4. DM 5. Hypercholesterolemia 6. ESRD on HD 7. PAD PLAN: 1. HD as per renal service 2. Continue Labetolol and titrate dosage as needed 3. Continue Procardia XL 4. Continue Cozaar 5. Continue Minoxidil 6. Continue Lipitor 7. Antibiotics as per the primary team 8. Patient can be transferred to floor care from the cardiovascular point of view Violette Moyer MD
[2018-04-21] MEDS ORDERED: PT OWN MED DRAWER 7, Y5N ONE ×3 (11:29→22:41)
--- NOTE | 2018-04-21 17:32 | PN ---
Physical Exam: SUBJECTIVE: Patient seen and examined. No acute issues, scant blood from groin site and toe OBJECTIVE: Vital Signs Period Temp Pulse Resp BP Sys/Parker Pulse Ox Last 24 Hr 98.2 F-99 F 67-75 18-20 140-155/64-76 95-99 PE Neuro: alert, awake, cn 2-12intact Pulm: rhonchi, + nc CV: s1 s2 rrr + 2/6 murmur Abd: s nt nd +bs Ext: warm, no le edema , r foot ulcer 3rd toe open drainage Active Medications Generic Name Dose Route Start Last Admin Trade Name Freq PRN Reason Stop Dose Admin Ascorbic Acid 500 mg 04/20/18 10:00 04/21/18 09:13 Vitamin C - PO 500 mg DAILY [facility] Administration Aspirin 81 mg 04/20/18 10:00 04/21/18 09:11 Asa - PO 81 mg DAILY [facility] Administration Atorvastatin Calcium 10 mg 04/19/18 22:00 04/20/18 21:16 Lipitor - PO 10 mg HS [facility] Administration Bacitracin 1 applic 04/20/18 10:00 04/21/18 09:11 Bacitracin - TP 1 applic DAILY [facility] Administration Calcium Acetate 667 mg 04/20/18 08:00 04/21/18 17:17 Phoslo - PO 667 mg TIDCM [facility] Administration Docusate Sodium 100 mg 04/19/18 22:00 04/20/18 21:17 Colace - PO 100 mg HS [facility] Administration Docusate Sodium 100 mg 04/19/18 22:00 04/21/18 09:11 Colace - PO 100 mg BID [facility] Administration Ferrous Sulfate 325 mg 04/20/18 08:00 04/21/18 17:17 Feosol - PO 325 mg TIDCM [facility] Administration Gabapentin 100 mg 04/19/18 22:00 04/20/18 21:16 Neurontin - PO 100 mg HS [facility] Administration Guaifenesin 10 ml 04/19/18 18:33 Diabetic Tussin Dm - PO Q4H PRN COUGH Heparin Sodium (Porcine) 5,000 unit 04/19/18 22:00 04/21/18 13:25 Heparin - SQ 5,000 unit TID [facility] Administration Labetalol HCl 200 mg 04/19/18 22:00 04/21/18 13:26 Normodyne - PO 200 mg TID [facility] Administration Losartan Potassium 100 mg 04/20/18 10:00 04/21/18 09:11 Cozaar - PO 100 mg DAILY [facility] Administration Minoxidil 10 mg 04/19/18 22:00 04/20/18 21:19 Loniten - PO 10 mg HS [facility] Administration Nifedipine 60 mg 04/19/18 22:00 04/21/18 09:12 Procardia Xl - PO 60 mg BID [facility] Administration Imaging: - ECHO noted, no significant change from last year 02/2017, LVSF nml Assessment: 72 year old female with pmh of ESRD MWF, CHF, DM2, HTN who presents to ED with two weeks of worsening productive cough, SOB and LE edema. Plan: 1. Acute on chronic diastolic CHF exacerbation - HD per Renal - Continue labetalol, lorsartan - Cardiology following 2. CAP - Completed ceftriaxone azithro 3. ESRD, MWF - HD per renal 4. Anemia of chronic disease, iron deficient - Started ferrous sulfate 5. HTN - Cont current meds 6. R foot wound - s/p angiogram 04/19, no areas of stenosis or occlusions - MRI R foot r/o oste 7. DVT - Heparin sq Visit type - Emergency Visit Emergency Visit: Yes ED Registration Date: 04/15/18 Care time: The patient presented to the Emergency Department on the above date and was hospitalized for further evaluation of their emergent condition. - New Patient This patient is new to me today: No - Critical Care Critical Care patient: No
--- NOTE | 2018-04-21 20:50 | PN ---
Progress Note (short form) - Note Progress Note: 72 yo F w/ PMH of ESRD (dialysis MWF) at [facility] dialysis unit, CHF, HTN, DM2, right foot gangrene, s/p angiogram today s/p HD after angiogram Current Medications Ascorbic Acid (Vitamin C -) 500 mg PO DAILY [facility] Last Admin: 04/21/18 09:13 Dose: 500 mg Aspirin (Asa -) 81 mg PO DAILY [facility] Last Admin: 04/21/18 09:11 Dose: 81 mg Atorvastatin Calcium (Lipitor -) 10 mg PO [facility] Last Admin: 04/20/18 21:16 Dose: 10 mg Bacitracin (Bacitracin -) 1 applic TP DAILY [facility] Last Admin: 04/21/18 09:11 Dose: 1 applic Calcium Acetate (Phoslo -) 667 mg PO TIDCM [facility] Last Admin: 04/21/18 17:17 Dose: 667 mg Docusate Sodium (Colace -) 100 mg PO [facility] Last Admin: 04/20/18 21:17 Dose: 100 mg Docusate Sodium (Colace -) 100 mg PO BID [facility] Last Admin: 04/21/18 09:11 Dose: 100 mg Ferrous Sulfate (Feosol -) 325 mg PO TIDCM [facility] Last Admin: 04/21/18 17:17 Dose: 325 mg Gabapentin (Neurontin -) 100 mg PO [facility] Last Admin: 04/20/18 21:16 Dose: 100 mg Guaifenesin (Diabetic Tussin Dm -) 10 ml PO Q4H PRN PRN Reason: COUGH Heparin Sodium (Porcine) (Heparin -) 5,000 unit SQ TID [facility] Last Admin: 04/21/18 13:25 Dose: 5,000 unit Labetalol HCl (Normodyne -) 200 mg PO TID [facility] Last Admin: 04/21/18 13:26 Dose: 200 mg Losartan Potassium (Cozaar -) 100 mg PO DAILY [facility] Last Admin: 04/21/18 09:11 Dose: 100 mg Minoxidil (Loniten -) 10 mg PO HS [facility] Last Admin: 04/20/18 21:19 Dose: 10 mg Nifedipine (Procardia Xl -) 60 mg PO BID [facility] Last Admin: 04/21/18 09:12 Dose: 60 mg Last Vital Signs Temp Pulse Resp BP Pulse Ox 98.7 F 70 18 148/70 95 06/17/18 18:00 04/21/18 18:00 04/21/18 18:00 04/21/18 18:00 04/21/18 09:00 alert in nad Lungs clear Heart reg Abd soft CBC, BMP 04/19/18 20:00 04/19/18 20:00 IMP esrd pvd- foot gangrene dm Plan- HD on Sunday
[2018-04-21] MEDS: MINOXIDIL 10 MG TABLET PO SCH (21:20)
[2018-04-21] MEDS: ATORVASTATIN CA 10 MG TABLET (FP) PO SCH (21:20)
[2018-04-21] MEDS: GABAPENTIN 100 MG CAPSULE (FP) PO SCH (21:21)
[2018-04-22] MEDS: HEPARIN NA (PORCINE) 5,000 UNITS/ML 1ML VIAL SQ SCH ×3 (05:47→22:33)
[2018-04-22] MEDS: LABETALOL HCL 200 MG TABLET (FP) PO SCH ×3 (05:47→22:33)
[2018-04-22] MEDS: FERROUS SO4 325 MG TABLET (FP) PO SCH ×3 (08:43→17:28)
[2018-04-22] MEDS: CALCIUM ACETATE 667 MG CAPSULE (FP) PO SCH ×3 (08:43→17:29)
--- NOTE | 2018-04-22 09:35 | PN ---
Progress Note, Physician History of Present Illness: Dyspnea, orthopnea, bilateral lower extremity edema and cough improving with HD and BP control. - Current Medication List Current Medications: Active Medications Ascorbic Acid (Vitamin C -) 500 mg PO DAILY [facility] Last Admin: 04/21/18 09:13 Dose: 500 mg Aspirin (Asa -) 81 mg PO DAILY [facility] Last Admin: 04/21/18 09:11 Dose: 81 mg Atorvastatin Calcium (Lipitor -) 10 mg PO [facility] Last Admin: 04/21/18 21:20 Dose: 10 mg Bacitracin (Bacitracin -) 1 applic TP DAILY [facility] Last Admin: 04/21/18 09:11 Dose: 1 applic Calcium Acetate (Phoslo -) 667 mg PO TIDCM [facility] Last Admin: 04/21/18 17:17 Dose: 667 mg Docusate Sodium (Colace -) 100 mg PO [facility] Last Admin: 04/21/18 21:19 Dose: 100 mg Docusate Sodium (Colace -) 100 mg PO BID [facility] Last Admin: 04/21/18 21:20 Dose: Not Given Ferrous Sulfate (Feosol -) 325 mg PO TIDCM [facility] Last Admin: 04/21/18 17:17 Dose: 325 mg Gabapentin (Neurontin -) 100 mg PO [facility] Last Admin: 04/21/18 21:21 Dose: 100 mg Guaifenesin (Diabetic Tussin Dm -) 10 ml PO Q4H PRN PRN Reason: COUGH Heparin Sodium (Porcine) (Heparin -) 5,000 unit SQ TID [facility] Last Admin: 04/22/18 05:47 Dose: Not Given Labetalol HCl (Normodyne -) 200 mg PO TID [facility] Last Admin: 04/22/18 05:47 Dose: Not Given Losartan Potassium (Cozaar -) 100 mg PO DAILY [facility] Last Admin: 04/21/18 09:11 Dose: 100 mg Minoxidil (Loniten -) 10 mg PO [facility] Last Admin: 04/21/18 21:20 Dose: 10 mg Nifedipine (Procardia Xl -) 60 mg PO BID [facility] Last Admin: 04/21/18 21:21 Dose: 60 mg - Objective Vital Signs: Vital Signs Temperature 98.3 F 04/22/18 05:31 Pulse Rate 65 04/22/18 05:31 Respiratory Rate 20 06/18/18 05:31 Blood Pressure 150/62 06/18/18 05:31 O2 Sat by Pulse Oximetry (%) 96 04/22/18 07:59 Constitutional: Yes: No Distress, Calm Neck: Yes: Supple Cardiovascular: Yes: Regular Rate and Rhythm, Murmur (2/6 SM) Respiratory: Yes: Regular, Diminished Gastrointestinal: Yes: Normal Bowel Sounds, Soft, Abdomen, Obese Edema: No Labs: CBC, BMP 04/19/18 20:00 04/19/18 20:00 INR, PTT INR 1.15 (0.82-1.09) H 04/15/18 05:55 Problem List - Problems (1) Shortness of breath Code(s): R06.02 - SHORTNESS OF BREATH (2) ESRD (end stage renal disease) on dialysis Code(s): N18.6 - END STAGE RENAL DISEASE; Z99.2 - DEPENDENCE ON RENAL DIALYSIS (3) Acute on chronic diastolic (congestive) heart failure Code(s): I50.33 - ACUTE ON CHRONIC DIASTOLIC (CONGESTIVE) HEART FAILURE (4) Diabetes type 2, controlled Code(s): E11.9 - TYPE 2 DIABETES MELLITUS WITHOUT COMPLICATIONS Qualifiers: Diabetes mellitus complication status: with kidney complications Chronic kidney disease stage: stage 5, not on chronic dialysis (5) Hypertensive urgency Code(s): I10 - ESSENTIAL (PRIMARY) HYPERTENSION (6) Anemia, chronic renal failure Code(s): N18.9 - CHRONIC KIDNEY DISEASE, UNSPECIFIED; D63.1 - ANEMIA IN CHRONIC KIDNEY DISEASE (7) Hyperlipidemia Code(s): E78.5 - HYPERLIPIDEMIA, UNSPECIFIED Qualifiers: Hyperlipidemia type: pure hypercholesterolemia Qualified Code(s): E78.00 - Pure hypercholesterolemia, unspecified; E78.0 - Pure hypercholesterolemia (8) Hypertensive renal disease Code(s): I12.9 - HYPERTENSIVE CHRONIC KIDNEY DISEASE W STG 1-4/UNSP CHR KDNY (9) Peripheral artery disease Code(s): I73.9 - PERIPHERAL VASCULAR DISEASE, UNSPECIFIED Assessment/Plan 04/15/2018 Mild cLVH, normal LV fxn, mild TR, tr AR 1. Acute on chonic diastolic failure in context of 2. Hypertensive urgency 3. RUL PNA 4. ESRD->HD MWF 5. Type 2 DM 6. PAD with right foot CLI P:1. Volume removal via HD 2. Continue losartan 100 qd, labetolol 200 tid, Procardial XL 60 bid, Lipitor 10 qhs, Minoxidil 10 qhs, and ASA 81 qd 3. Complete empiric abx course 4. Emphasized importance of diet, medication and HD compliance 5. Wound care, RLE angiogram excluded stenosis, f/u MRI r/o osteo. DVT prophylaxis
--- NOTE | 2018-04-22 11:21 | PN ---
Progress Note, Physician Chief Complaint: The patient seen on dialysis. seems comfortable. No chest pain. No shortness of breath. The LE angiogram was done. Awaiting Vascular F/u. History of Present Illness: The patient seen in her room. 72 yo F w/ PMH of ESRD (dialysis MWF) at [facility] dialysis unit, CHF , HTN, DM2, who presents with worsening cough and SOB over the last two weeks. Pt has a productive cough that began two week ago and worsening SOB with activity. She has a right foot gangrene, and vascular eval in progress. - Current Medication List Current Medications: Active Medications Ascorbic Acid (Vitamin C -) 500 mg PO DAILY [facility] Last Admin: 04/21/18 09:13 Dose: 500 mg Aspirin (Asa -) 81 mg PO DAILY [facility] Last Admin: 04/21/18 09:11 Dose: 81 mg Atorvastatin Calcium (Lipitor -) 10 mg PO [facility] Last Admin: 04/21/18 21:20 Dose: 10 mg Bacitracin (Bacitracin -) 1 applic TP DAILY [facility] Last Admin: 04/21/18 09:11 Dose: 1 applic Calcium Acetate (Phoslo -) 667 mg PO TIDCM [facility] Last Admin: 04/22/18 08:43 Dose: 667 mg Docusate Sodium (Colace -) 100 mg PO [facility] Last Admin: 04/21/18 21:19 Dose: 100 mg Docusate Sodium (Colace -) 100 mg PO BID [facility] Last Admin: 04/21/18 21:20 Dose: Not Given Ferrous Sulfate (Feosol -) 325 mg PO TIDCM [facility] Last Admin: 04/22/18 08:43 Dose: 325 mg Gabapentin (Neurontin -) 100 mg PO [facility] Last Admin: 04/21/18 21:21 Dose: 100 mg Guaifenesin (Diabetic Tussin Dm -) 10 ml PO Q4H PRN PRN Reason: COUGH Heparin Sodium (Porcine) (Heparin -) 5,000 unit SQ TID [facility] Last Admin: 04/22/18 05:47 Dose: Not Given Labetalol HCl (Normodyne -) 200 mg PO TID [facility] Last Admin: 04/22/18 05:47 Dose: Not Given Losartan Potassium (Cozaar -) 100 mg PO DAILY [facility] Last Admin: 04/21/18 09:11 Dose: 100 mg Minoxidil (Loniten -) 10 mg PO HS [facility] Last Admin: 04/21/18 21:20 Dose: 10 mg Nifedipine (Procardia Xl -) 60 mg PO BID [facility] Last Admin: 04/21/18 21:21 Dose: 60 mg - Objective Vital Signs: Vital Signs Temperature 98.4 F 04/22/18 09:55 Pulse Rate 65 04/22/18 10:30 Respiratory Rate 18 04/22/18 10:30 Blood Pressure 144/57 04/22/18 10:30 O2 Sat by Pulse Oximetry (%) 96 04/22/18 07:59 Constitutional: Yes: No Distress, Calm, Pallor Eyes: Yes: Conjunctiva Clear Neck: Yes: Trachea Midline Cardiovascular: Yes: Regular Rate and Rhythm, S1, S2 Respiratory: Yes: Regular, CTA Bilaterally, Poor Air Entry Gastrointestinal: Yes: Normal Bowel Sounds, Soft Extremities: Yes: Other (Rt foot gangrene) Labs: CBC, BMP 04/19/18 20:00 04/19/18 20:00 INR, PTT INR 1.15 (0.82-1.09) H 04/15/18 05:55 Problem List - Problems (1) Shortness of breath Code(s): R06.02 - SHORTNESS OF BREATH (2) ESRD (end stage renal disease) on dialysis Code(s): N18.6 - END STAGE RENAL DISEASE; Z99.2 - DEPENDENCE ON RENAL DIALYSIS (3) AV fistula Code(s): I77.0 - ARTERIOVENOUS FISTULA, ACQUIRED (4) Acute on chronic diastolic (congestive) heart failure Code(s): I50.33 - ACUTE ON CHRONIC DIASTOLIC (CONGESTIVE) HEART FAILURE (5) Anemia Code(s): D64.9 - ANEMIA, UNSPECIFIED Qualifiers: Anemia type: unspecified type Qualified Code(s): D64.9 - Anemia, unspecified (6) Bleeding from dialysis shunt Code(s): T82.838A - HEMORRHAGE DUE TO VASCULAR PROSTH DEV/GRFT, INIT Qualifiers: Encounter type: initial encounter Qualified Code(s): T82.838A - Hemorrhage due to vascular prosthetic devices, implants and grafts, initial encounter (7) Diabetes type 2, controlled Code(s): E11.9 - TYPE 2 DIABETES MELLITUS WITHOUT COMPLICATIONS Qualifiers: Diabetes mellitus complication status: with kidney complications Chronic kidney disease stage: stage 5, not on chronic dialysis (8) Foot pain, right Code(s): M79.671 - PAIN IN RIGHT FOOT (9) Paroxysmal atrial fibrillation Code(s): I48.0 - PAROXYSMAL ATRIAL FIBRILLATION (10) End stage renal disease Code(s): N18.6 - END STAGE RENAL DISEASE (11) Hypertension Code(s): I10 - ESSENTIAL (PRIMARY) HYPERTENSION Qualifiers: Hypertension type: essential hypertension Qualified Code(s): I10 - Essential (primary) hypertension (12) Congestive heart failure Code(s): I50.9 - HEART FAILURE, UNSPECIFIED Assessment/Plan 72 yo F w/ PMH of ESRD (dialysis MWF) at [facility] dialysis unit, CHF , HTN, DM2, who presents with worsening cough and SOB. She also had anterior chest wall pain and upper back pain from persistent cough , in addition to increased edema in her legs BL. Acute Congestive Heart failure in this 72 y/o female with ESRD, and volume overload. Resolved. The right foot gangrene is painful. Vascular evaluation in progress. Persitent cough, on ABx. BP improved. HD in progress,. Orders reviewed with the RN. Thank you. Will follow the patient with you. Sobeida Chavez MD
--- NOTE | 2018-04-22 13:06 | PN ---
Physical Exam: SUBJECTIVE: Patient seen and examined on HD. Her IV fell out last night, experienced bleeding and some dizziness, now resolved OBJECTIVE: Vital Signs Period Temp Pulse Resp BP Sys/Parker Pulse Ox Last 24 Hr 98.2 F-99 F 57-75 18-20 106-151/54-79 94-98 PE Neuro: alert, awake, cn 2-12intact Pulm: clear scattered rhonchi + nc CV: s1 s2 rrr + 2/6 murmur Abd: s nt nd +bs Ext: warm, no le edema , r foot ulcer 3rd toe open drainage Active Medications Generic Name Dose Route Start Last Admin Trade Name Freq PRN Reason Stop Dose Admin Ascorbic Acid 500 mg 04/20/18 10:00 04/21/18 09:13 Vitamin C - PO 500 mg DAILY [facility] Administration Aspirin 81 mg 04/20/18 10:00 04/21/18 09:11 Asa - PO 81 mg DAILY [facility] Administration Atorvastatin Calcium 10 mg 04/19/18 22:00 04/21/18 21:20 Lipitor - PO 10 mg HS KARINA Administration Bacitracin 1 applic 04/20/18 10:00 04/21/18 09:11 Bacitracin - TP 1 applic DAILY [facility] Administration Calcium Acetate 667 mg 04/20/18 08:00 04/22/18 08:43 Phoslo - PO 667 mg TIDCM [facility]INA Administration Docusate Sodium 100 mg 04/19/18 22:00 04/21/18 21:19 Colace - PO 100 mg HS [facility]INA Administration Docusate Sodium 100 mg 04/19/18 22:00 04/21/18 21:20 Colace - PO Not Given BID KAR[facility] Ferrous Sulfate 325 mg 04/20/18 08:00 04/22/18 08:43 Feosol - PO 325 mg TIDCM [facility] Administration Gabapentin 100 mg 04/19/18 22:00 04/21/18 21:21 Neurontin - PO 100 mg HS [facility] Administration Guaifenesin 10 ml 04/19/18 18:33 Diabetic Tussin Dm - PO Q4H PRN COUGH Heparin Sodium (Porcine) 5,000 unit 04/19/18 22:00 04/22/18 05:47 Heparin - SQ Not Given TID [facility] Labetalol HCl 200 mg 04/19/18 22:00 04/22/18 05:47 Normodyne - PO Not Given TID [facility] Losartan Potassium 100 mg 04/20/18 10:00 04/21/18 09:11 Cozaar - PO 100 mg DAILY [facility] Administration Minoxidil 10 mg 04/19/18 22:00 04/21/18 21:20 Loniten - PO 10 mg HS [facility] Administration Nifedipine 60 mg 04/19/18 22:00 04/21/18 21:21 Procardia Xl - PO 60 mg BID [facility] Administration Imaging: - ECHO noted, no significant change from last year 02/2017, LVSF nml Assessment: 72 year old female with pmh of ESRD MWF, CHF, DM2, HTN who presents to ED with two weeks of worsening productive cough, SOB and LE edema. Plan: 1. Acute on chronic diastolic CHF exacerbation - Improved - Continue labetalol, lorsartan 2. CAP - Completed ceftriaxone azithro 3. ESRD, MWF - HD today - HD per Renal 4. Anemia of chronic disease, iron deficient - Started ferrous sulfate 5. HTN - Cont current meds 6. R foot wound - s/p angiogram 04/19, no areas of stenosis or occlusions - MRI R foot r/o oste today 7. DVT - Heparin sq Visit type - Emergency Visit Emergency Visit: Yes ED Registration Date: 04/15/18 Care time: The patient presented to the Emergency Department on the above date and was hospitalized for further evaluation of their emergent condition. - New Patient This patient is new to me today: No - Critical Care Critical Care patient: No
[2018-04-22] MEDS: DOCUSATE SODIUM 100 MG CAPSULE (FP) PO SCH ×3 (14:37→22:33)
[2018-04-22] MEDS: ASPIRIN 81 MG CHEWABLE TABLETS PO SCH (14:37)
[2018-04-22] MEDS: BACITRACIN 15 GM TUBE TOPICAL OINTMENT TP SCH (14:37)
[2018-04-22] MEDS: LOSARTAN POTASSIUM 50 MG TABLET (FP) PO SCH (14:38)
[2018-04-22] MEDS: NIFEdipine E.R 60 MG TABLET (UD) PO SCH ×2 (14:38→22:33)
[2018-04-22] MEDS: ASCORBIC ACID 500 MG TABLET (FP) PO SCH (14:38)
[2018-04-22] MEDS: GABAPENTIN 100 MG CAPSULE (FP) PO SCH (22:33)
[2018-04-22] MEDS: MINOXIDIL 10 MG TABLET PO SCH (22:33)
[2018-04-22] MEDS: ATORVASTATIN CA 10 MG TABLET (FP) PO SCH (22:33)
[2018-04-23] MEDS: HEPARIN NA (PORCINE) 5,000 UNITS/ML 1ML VIAL SQ SCH ×3 (05:29→21:18)
[2018-04-23] MEDS: LABETALOL HCL 200 MG TABLET (FP) PO SCH ×3 (05:31→21:18)
--- NOTE | 2018-04-23 07:43 | PN ---
Progress Note (short form) - Note Progress Note: Chief Complaint: Events noted, notes reviewed, reports dyspnea with exertion and noted to have hypoxia with ambulation, denies any chest pain History of Present Illness: Seen and examined on telemetry. Events noted, notes reviewed, reports dyspnea with exertion and noted to have hypoxia with ambulation, denies any chest pain Echocardiography dated 04/15/2018 revealed mild cLVH, normal LV systolic function, mild TR and trace AR Echocardiography dated 12/25/2016 revealed normal LV size with mild cLVH, normal LV function, mod LAE, mild-moderate MR, mild AI and TR with of RVSP 50-60 mmHg Medications: Current Medications Ascorbic Acid (Vitamin C -) 500 mg PO DAILY [facility] Last Admin: 04/23/18 09:02 Dose: 500 mg Aspirin (Asa -) 81 mg PO DAILY [facility] Last Admin: 04/23/18 09:02 Dose: 81 mg Atorvastatin Calcium (Lipitor -) 10 mg PO [facility] Last Admin: 04/22/18 22:33 Dose: 10 mg Bacitracin (Bacitracin -) 1 applic TP DAILY [facility] Last Admin: 04/23/18 09:04 Dose: 1 applic Calcium Acetate (Phoslo -) 667 mg PO TIDCM [facility] Last Admin: 04/23/18 08:39 Dose: 667 mg Docusate Sodium (Colace -) 100 mg PO [facility] Last Admin: 04/22/18 22:33 Dose: 100 mg Docusate Sodium (Colace -) 100 mg PO BID [facility] Last Admin: 04/23/18 09:04 Dose: 100 mg Ferrous Sulfate (Feosol -) 325 mg PO TIDCM [facility] Last Admin: 04/23/18 08:39 Dose: 325 mg Gabapentin (Neurontin -) 100 mg PO [facility] Last Admin: 04/22/18 22:33 Dose: 100 mg Guaifenesin (Diabetic Tussin Dm -) 10 ml PO Q4H PRN PRN Reason: COUGH Heparin Sodium (Porcine) (Heparin -) 5,000 unit SQ TID [facility] Last Admin: 04/23/18 05:29 Dose: 5,000 unit Labetalol HCl (Normodyne -) 200 mg PO TID [facility] Last Admin: 04/23/18 05:31 Dose: 200 mg Losartan Potassium (Cozaar -) 100 mg PO DAILY [facility] Last Admin: 04/23/18 09:04 Dose: 100 mg Minoxidil (Loniten -) 10 mg PO HS [facility] Last Admin: 04/22/18 22:33 Dose: 10 mg Nifedipine (Procardia Xl -) 60 mg PO BID [facility] Last Admin: 04/23/18 09:04 Dose: 60 mg Review of Systems - Review of Systems Constitutional: denies: Chills, Fever Cardiovascular: As noted above Respiratory: denies: Cough or Sputum Production Gastrointestinal: denies: Nausea, Vomiting, Diarrhea, Constipation or Abdominal Pain Musculoskeletal: No symptoms reported Neurological: denies: Dizziness or Headaches Vital Signs: Last Vital Signs Temp Pulse Resp BP Pulse Ox 98 F 84 16 113/40 96 04/23/18 05:30 04/23/18 10:50 04/23/18 05:30 04/23/18 05:30 04/23/18 10:50 Intake & Output 04/20/18 04/21/18 04/22/18 04/23/18 23:59 23:59 23:59 23:59 Intake Total 550 100 150 50 Output Total 0 Balance 550 100 150 50 Weight 155 lb 157 lb 6.4 oz 160 lb 6 oz 158 lb 9.6 oz Constitutional: No Distress, Calm Neck: Supple Negative JVD Respiratory: diminished Breath Sounds at the Bases Bilateral Scattered Rhonchi Cardiovascular: S1 S2 Regular Rate and Rhythm Grade 2/6 JAEL Gastrointestinal: Soft Benign Normal Bowel Sounds Ext: No Edema Lab Data: CBC, BMP 04/23/18 09:15 04/23/18 09:15 Assessment/Plan ASSESSMENT: 1. Acute on chronic LV diastolic failure class II-III NYHA classification LV failure, resolved precipitated by 2. Hypertensive urgency, labile blood pressure, currently controlled 3. Right upper lobe pneumonia, resolving exertional dyspnea with hypoxia consideration for intrinsic lung disease/COPD 4. DM 5. Hypercholesterolemia 6. ESRD on HD 7. PAD PLAN: 1. HD as per renal service, may need additional volume mobilization 2. Continue Labetolol and titrate dosage as needed 3. Continue Procardia XL 4. Continue Cozaar 5. Continue Minoxidil 6. Continue Lipitor 7. Antibiotics as per the primary team 8. Obtain chest x-ray, consider CT scan of the chest and pulmonary function test as outpatient for further evaluation of possible pulmonary pathology Violette Moyer MD
--- NOTE | 2018-04-23 08:27 | PN ---
Physical Exam: SUBJECTIVE: Patient seen and examined at the bedside. Feels well, in no acute distress. Not home oxygen dependent, not short of breath. Has been on oxygen intermittently here, resp. pre and post now to evaluate for home oxygen use OBJECTIVE: Vital Signs Period Temp Pulse Resp BP Sys/Parker Pulse Ox Last 24 Hr 97.6 F-98.4 F 57-73 10-20 106-151/40-68 94-96 GENERAL: The patient is awake, alert, and fully oriented, in no acute distress. HEAD: Normal with no signs of trauma. EYES: PERRL, extraocular movements intact, sclera anicteric, conjunctiva clear. No ptosis. ENT: Ears normal, nares patent, oropharynx clear without exudates, moist mucous membranes. NECK: Trachea midline, full range of motion, supple. LUNGS: Breath sounds equal, clear to auscultation bilaterally, no wheezes HEART: Regular rate and rhythm, security services manager discontinued ABDOMEN: Soft, nontender, nondistended, normoactive bowel sounds, no guarding, no rebound, no hepatosplenomegaly, no masses. EXTREMITIES: RLE with toe wound, dressing intact, not removed NEUROLOGICAL: Normal speech, gait not observed. PSYCH: Normal mood, normal affect. Active Medications Generic Name Dose Route Start Last Admin Trade Name Michelq PRN Reason Stop Dose Admin Ascorbic Acid 500 mg 04/20/18 10:00 04/22/18 14:38 Vitamin C - PO 500 mg DAILY [facility] Administration Aspirin 81 mg 04/20/18 10:00 04/22/18 14:37 Asa - PO 81 mg DAILY [facility] Administration Atorvastatin Calcium 10 mg 04/19/18 22:00 04/22/18 22:33 Lipitor - PO 10 mg HS [facility] Administration Bacitracin 1 applic 04/20/18 10:00 04/22/18 14:37 Bacitracin - TP 1 applic DAILY [facility] Administration Calcium Acetate 667 mg 04/20/18 08:00 04/22/18 17:29 Phoslo - PO 667 mg TIDCM [facility] Administration Docusate Sodium 100 mg 04/19/18 22:00 04/22/18 22:33 Colace - PO 100 mg HS [facility] Administration Docusate Sodium 100 mg 04/19/18 22:00 04/22/18 22:32 Colace - PO Not Given BID [facility] Ferrous Sulfate 325 mg 04/20/18 08:00 04/22/18 17:28 Feosol - PO 325 mg TIDCM [facility] Administration Gabapentin 100 mg 04/19/18 22:00 04/22/18 22:33 Neurontin - PO 100 mg HS [facility] Administration Guaifenesin 10 ml 04/19/18 18:33 Diabetic Tussin Dm - PO Q4H PRN COUGH Heparin Sodium (Porcine) 5,000 unit 04/19/18 22:00 04/23/18 05:29 Heparin - SQ 5,000 unit TID [facility] Administration Labetalol HCl 200 mg 04/19/18 22:00 04/23/18 05:31 Normodyne - PO 200 mg TID [facility] Administration Losartan Potassium 100 mg 04/20/18 10:00 04/22/18 14:38 Cozaar - PO 100 mg DAILY [facility] Administration Minoxidil 10 mg 04/19/18 22:00 04/22/18 22:33 Loniten - PO 10 mg HS [facility] Administration Nifedipine 60 mg 04/19/18 22:00 04/22/18 22:33 Procardia Xl - PO 60 mg BID [facility] Administration ASSESSMENT/PLAN: Patient is a 72 year old female with a significant past medical history of ESRD (dialysis MWF), CHF, HTN, DM2. She presents to the ED with worsening cough and SOB over the last two weeks. She also had anterior chest wall pain and upper back pain from persistent cough, which is now resolved. She reports increased edema to her bilateral lower extremities. Card: Shortness of breath, acute Acute CHF with ESRD. Shortness of breath likely secondary to volume overload. Patient has congestive changes to chest xray. Pre and post shows patient qualifies for oxygen. Discussed with renal, as they will attempt to remove more fluids tomorrow if BP allows. Continue Labetalol, lorsartan. Pre and post in a.m. after dialysis. Vascular Right foot wound. On daily dressing changes. Vascular following s/p angiogram. No areas of stenosis or occlusions. Wound care daily with [facility]. MRI of foot shows possible osteomylitis. ID consulted . Pulm: Cough/Upper Resp. Infection. resolved, mild coughing. Renal, ESRD. dialysis per renal - next tomorrow. Heme: Anemia of chronic disease. On Ferrous sulfate. FEN/prophy tolerating PO Monitor electrolytes low salt heparin PT Visit type - Emergency Visit Emergency Visit: Yes ED Registration Date: 04/15/18 Care time: The patient presented to the Emergency Department on the above date and was hospitalized for further evaluation of their emergent condition. - New Patient This patient is new to me today: No - Critical Care Critical Care patient: No - Discharge Referral Referred to [facility] Med [facility] No
[2018-04-23] MEDS: CALCIUM ACETATE 667 MG CAPSULE (FP) PO SCH ×3 (08:39→16:31)
[2018-04-23] MEDS: FERROUS SO4 325 MG TABLET (FP) PO SCH ×3 (08:39→16:31)
[2018-04-23] MEDS: ASPIRIN 81 MG CHEWABLE TABLETS PO SCH (09:02)
[2018-04-23] MEDS: ASCORBIC ACID 500 MG TABLET (FP) PO SCH (09:02)
[2018-04-23] MEDS: BACITRACIN 15 GM TUBE TOPICAL OINTMENT TP SCH (09:04)
[2018-04-23] MEDS: DOCUSATE SODIUM 100 MG CAPSULE (FP) PO SCH ×2 (09:04→21:18)
[2018-04-23] MEDS: LOSARTAN POTASSIUM 50 MG TABLET (FP) PO SCH (09:04)
[2018-04-23] MEDS: NIFEdipine E.R 60 MG TABLET (UD) PO SCH ×2 (09:04→21:19)
[2018-04-23 09:29] LABS: BASO % 1.1 % (0-2.0); EOS % 5.6 % (0-4.5); HEMATOCRIT 26.2 % (32.4-45.2); HEMOGLOBIN 8.2 GM/dL (10.7-15.3); LYMPH % 12.1 % (8-40); MCH 26.1 pg (25.7-33.7); MCHC 31.3 g/dl (32.0-36.0); MEAN CELL VOLUME 83.6 fl (80-96); MEAN PLT VOLUME 9.1 fl (7.5-11.1); MONO % 9.9 % (3.8-10.2); NEUT % 71.3 % (42.8-82.8); PLATELET COUNT 176 K/MM3 (134-434); RBC 3.14 M/mm3 (3.60-5.2); RDW 18.1 % (11.6-15.6); WHITE BLOOD COUNT 4.8 K/mm3 (4.0-10.0)
[2018-04-23 09:58] LABS: ALBUMIN 3.5 g/dl (3.4-5.0); ANION GAP 10 (8-16); BLOOD UREA NITROGEN 19 mg/dL (7-18); CALCIUM 8.6 mg/dL (8.5-10.1); CHLORIDE 100 mmol/L (98-107); CO2 31 mmol/L (21-32); GLUCOSE,RANDOM 184 mg/dL (74-106); SGOT/AST 32 U/L (15-37); SGPT/ALT 24 U/L (12-78); SODIUM 141 mmol/L (136-145)
[2018-04-23 10:01] LABS: ALK PHOS 110 U/L (45-117); BILIRUBIN,TOTAL 0.5 mg/dL (0.2-1.0); TOT PROT 7.3 g/dl (6.4-8.2)
--- NOTE | 2018-04-23 12:35 | PN ---
Progress Note, Physician Chief Complaint: The patient seen on dialysis. Comfortable. No chest pain. No shortness of breath. The right foot wound dressing in place. MRI still pending. History of Present Illness: The patient seen in her room. She has a right foot gangrene, and vascular eval in progress Had uneventful Hd yesterday. - Current Medication List Current Medications: Active Medications Ascorbic Acid (Vitamin C -) 500 mg PO DAILY [facility] Last Admin: 04/23/18 09:02 Dose: 500 mg Aspirin (Asa -) 81 mg PO DAILY [facility] Last Admin: 04/23/18 09:02 Dose: 81 mg Atorvastatin Calcium (Lipitor -) 10 mg PO HS [facility] Last Admin: 04/22/18 22:33 Dose: 10 mg Bacitracin (Bacitracin -) 1 applic TP DAILY [facility] Last Admin: 04/23/18 09:04 Dose: 1 applic Calcium Acetate (Phoslo -) 667 mg PO TIDCM [facility] Last Admin: 04/23/18 12:23 Dose: 667 mg Docusate Sodium (Colace -) 100 mg PO [facility] Last Admin: 04/22/18 22:33 Dose: 100 mg Docusate Sodium (Colace -) 100 mg PO BID [facility] Last Admin: 04/23/18 09:04 Dose: 100 mg Ferrous Sulfate (Feosol -) 325 mg PO TIDCM [facility] Last Admin: 04/23/18 12:22 Dose: 325 mg Gabapentin (Neurontin -) 100 mg PO [facility] Last Admin: 04/22/18 22:33 Dose: 100 mg Guaifenesin (Diabetic Tussin Dm -) 10 ml PO Q4H PRN PRN Reason: COUGH Heparin Sodium (Porcine) (Heparin -) 5,000 unit SQ TID [facility] Last Admin: 04/23/18 05:29 Dose: 5,000 unit Labetalol HCl (Normodyne -) 200 mg PO TID [facility] Last Admin: 04/23/18 05:31 Dose: 200 mg Losartan Potassium (Cozaar -) 100 mg PO DAILY [facility] Last Admin: 04/23/18 09:04 Dose: 100 mg Minoxidil (Loniten -) 10 mg PO HS [facility] Last Admin: 04/22/18 22:33 Dose: 10 mg Nifedipine (Procardia Xl -) 60 mg PO BID [facility] Last Admin: 04/23/18 09:04 Dose: 60 mg - Objective Vital Signs: Vital Signs Temperature 98.3 F 04/23/18 10:00 Pulse Rate 84 04/23/18 10:50 Respiratory Rate 18 04/23/18 10:00 Blood Pressure 127/56 04/23/18 10:00 O2 Sat by Pulse Oximetry (%) 96 04/23/18 10:50 Constitutional: Yes: Well Nourished Eyes: Yes: Conjunctiva Clear HENT: Yes: Normocephalic Neck: Yes: Trachea Midline Cardiovascular: Yes: S1, S2 Respiratory: Yes: CTA Bilaterally, Diminished Gastrointestinal: Yes: Normal Bowel Sounds, Soft Genitourinary: No: CVA Tenderness - Left, CVA Tenderness - Right Extremities: No: Calf Tenderness Labs: CBC, BMP 04/23/18 09:15 04/23/18 09:15 INR, PTT INR 1.15 (0.82-1.09) H 04/15/18 05:55 Problem List - Problems (1) Shortness of breath Code(s): R06.02 - SHORTNESS OF BREATH (2) ESRD (end stage renal disease) on dialysis Code(s): N18.6 - END STAGE RENAL DISEASE; Z99.2 - DEPENDENCE ON RENAL DIALYSIS (3) AV fistula Code(s): I77.0 - ARTERIOVENOUS FISTULA, ACQUIRED (4) Acute on chronic diastolic (congestive) heart failure Code(s): I50.33 - ACUTE ON CHRONIC DIASTOLIC (CONGESTIVE) HEART FAILURE (5) Anemia Code(s): D64.9 - ANEMIA, UNSPECIFIED Qualifiers: Anemia type: unspecified type Qualified Code(s): D64.9 - Anemia, unspecified (6) Bleeding from dialysis shunt Code(s): T82.838A - HEMORRHAGE DUE TO VASCULAR PROSTH DEV/GRFT, INIT Qualifiers: Encounter type: initial encounter Qualified Code(s): T82.838A - Hemorrhage due to vascular prosthetic devices, implants and grafts, initial encounter (7) Diabetes type 2, controlled Code(s): E11.9 - TYPE 2 DIABETES MELLITUS WITHOUT COMPLICATIONS Qualifiers: Diabetes mellitus complication status: with kidney complications Chronic kidney disease stage: stage 5, not on chronic dialysis (8) Foot pain, right Code(s): M79.671 - PAIN IN RIGHT FOOT (9) Paroxysmal atrial fibrillation Code(s): I48.0 - PAROXYSMAL ATRIAL FIBRILLATION (10) End stage renal disease Code(s): N18.6 - END STAGE RENAL DISEASE (11) Hypertension Code(s): I10 - ESSENTIAL (PRIMARY) HYPERTENSION Qualifiers: Hypertension type: essential hypertension Qualified Code(s): I10 - Essential (primary) hypertension (12) Congestive heart failure Code(s): I50.9 - HEART FAILURE, UNSPECIFIED Assessment/Plan 72 yo F w/ PMH of ESRD (dialysis MWF) at [facility] dialysis unit, CHF , HTN, DM2, who presents with worsening cough and SOB. Acute Congestive Heart failure in this 72 y/o female with ESRD, and volume overload. Resolved. The right foot gangrene is painful. Vascular evaluation in progress. ? osteomyelitis. Persitent cough, on ABx. BP improved. Next HD tomorrow. Thank you. Will follow the patient with you. Sobeida Chavez MD
--- NOTE | 2018-04-23 15:51 | PN ---
Progress Note (short form) - Note Progress Note: ID Consult dictated Non healing toe ulcer/ chronic osteomyelitis ESRD No wound culture available Advise empiric treatment with Vancomycin 1gm dosed at each HD maintain trough approx 15 Levaquin 250mg po q48h Complete additional 5 w course Monitor serial ESR/CRP Follow up [facility]
[2018-04-23] MEDS ORDERED: VANCOMYCIN 1 GM PREMIX - 1 GM/200 ML BAG IVPB ONE (16:00)
[2018-04-23] MEDS ORDERED: INSULIN (NOVOLOG) ASPART 100 UNITS/ML 10ML VIAL ONE (16:36)
[2018-04-23] MEDS: INSULIN SLIDING SCALE (NOVOLOG) 1 VIAL SQ SCH ×2 (16:37→21:25)
--- NOTE | 2018-04-23 18:23 | CONS ---
DATE OF CONSULTATION: DATE OF DICTATION: 04/23/2018 INFECTIOUS DISEASE CONSULTATION HISTORY OF PRESENT ILLNESS: The patient is a 72-year-old female with a history of end-stage renal disease on hemodialysis, evaluated for osteomyelitis of the right third toe. She was admitted to the hospital on April 15, 2018, with 2-week history of worsening shortness of breath and lower extremity edema. She was diagnosed with decompensated congestive heart failure. She was treated with a course of Zithromax and ceftriaxone for possible superimposed pneumonia. The patient had a right 3rd toe ulcer which has been present since approximately December. According to the notes, there was drainage noted. No wound culture is available, however. An MRI was performed that showed osteomyelitis of the right 3rd toe. She is awake and alert. She has no complaints of toe pain. Denies any fever or chills. No history of resistant skin pathogens. PAST MEDICAL HISTORY: Positive for end-stage renal disease on hemodialysis, congestive heart failure, hypertension, hyperlipidemia, diabetes mellitus. PAST SURGICAL HISTORY: Status post left upper extremity AV fistula. ALLERGIES: No known allergies. LABORATORY DATA: White count 4.8, hematocrit 26.2, platelet count 176, BUN 19, creatinine 4.0. PHYSICAL EXAMINATION: General: She is awake and alert. Vital signs: Temperature 98.3, blood pressure 127/56, pulse 84 regular. HEENT: Sclerae anicteric. Cardiovascular: Heart sounds S1, S2. Respiratory: Lungs clear. Abdomen: Soft. Nontender. Extremities: Examination of the right foot: There is an ulceration present at the base of the right 3rd toe. There is also a dry ulceration present over the dorsal aspect of the right 3rd toe. There is no purulent drainage noted. Slight swelling. No erythema, crepitus or fluctuance. IMPRESSION: 1. Nonhealing diabetic foot ulcer. 2. Chronic osteomyelitis right third toe. 3. End-stage renal disease on hemodialysis. In light of absence of wound culture, advise empiric antibiotic treatment for osteomyelitis in this diabetic female with vancomycin and Levaquin. Would give vancomycin 1 g hemodialysis to maintain a trough level of approximately 15, Levaquin p.o. every 48 hours. Would complete a 5-week course for osteomyelitis, monitor sedimentation rate and C-reactive protein , [facility]. Thank you for the kind referral. MARISA KRISHNAMURTHY M.D. [id number]
[2018-04-23] MEDS ORDERED: PT OWN MED DRAWER 7, Y5N ONE (21:11)
[2018-04-23] MEDS: GABAPENTIN 100 MG CAPSULE (FP) PO SCH (21:18)
[2018-04-23] MEDS: MINOXIDIL 10 MG TABLET PO SCH (21:18)
[2018-04-23] MEDS: ATORVASTATIN CA 10 MG TABLET (FP) PO SCH (21:18)
[2018-04-24] MEDS: HEPARIN NA (PORCINE) 5,000 UNITS/ML 1ML VIAL SQ SCH ×2 (05:29→17:18)
[2018-04-24] MEDS: LABETALOL HCL 200 MG TABLET (FP) PO SCH ×2 (05:29→17:18)
[2018-04-24] MEDS: INSULIN SLIDING SCALE (NOVOLOG) 1 VIAL SQ SCH ×4 (06:12→17:40)
[2018-04-24 06:35] LABS: BASO % 1.3 % (0-2.0); EOS % 5.8 % (0-4.5); HEMATOCRIT 25.1 % (32.4-45.2); HEMOGLOBIN 7.9 GM/dL (10.7-15.3); LYMPH % 12.1 % (8-40); MCH 26.5 pg (25.7-33.7); MCHC 31.6 g/dl (32.0-36.0); MEAN CELL VOLUME 83.8 fl (80-96); MONO % 9.7 % (3.8-10.2); NEUT % 71.1 % (42.8-82.8); PLATELET COUNT 156 K/MM3 (134-434); RDW 17.9 % (11.6-15.6); WHITE BLOOD COUNT 5.4 K/mm3 (4.0-10.0)
[2018-04-24 06:57] LABS: ALBUMIN 3.5 g/dl (3.4-5.0); ALK PHOS 119 U/L (45-117); ANION GAP 9 (8-16); BILIRUBIN,TOTAL 0.5 mg/dL (0.2-1.0); BLOOD UREA NITROGEN 27 mg/dL (7-18); CALCIUM 8.6 mg/dL (8.5-10.1); CHLORIDE 99 mmol/L (98-107); CO2 30 mmol/L (21-32); CREATININE 5.2 mg/dL (0.55-1.02); GLUCOSE,RANDOM 149 mg/dL (74-106); POTASSIUM 4.2 mmol/L (3.5-5.1); SGOT/AST 22 U/L (15-37); SGPT/ALT 22 U/L (12-78); SODIUM 138 mmol/L (136-145); TOT PROT 7.1 g/dl (6.4-8.2)
[2018-04-24] MEDS: CALCIUM ACETATE 667 MG CAPSULE (FP) PO SCH ×3 (08:56→17:39)
[2018-04-24] MEDS: FERROUS SO4 325 MG TABLET (FP) PO SCH ×3 (08:56→17:39)
[2018-04-24] MEDS: LOSARTAN POTASSIUM 50 MG TABLET (FP) PO SCH (09:00)
[2018-04-24] MEDS: DOCUSATE SODIUM 100 MG CAPSULE (FP) PO SCH (09:00)
[2018-04-24] MEDS ORDERED: EPOETIN ALFA 10,000 UNIT/1 ML VIAL SQ ONE (09:00)
[2018-04-24] MEDS: ASCORBIC ACID 500 MG TABLET (FP) PO SCH (09:00)
[2018-04-24] MEDS: NIFEdipine E.R 60 MG TABLET (UD) PO SCH (09:01)
[2018-04-24] MEDS: ASPIRIN 81 MG CHEWABLE TABLETS PO SCH (09:01)
[2018-04-24] MEDS: BACITRACIN 15 GM TUBE TOPICAL OINTMENT TP SCH (09:02)
--- NOTE | 2018-04-24 09:08 | PN ---
Progress Note, Physician History of Present Illness: Dyspnea, orthopnea, bilateral lower extremity edema and cough improving with HD and BP control. - Current Medication List Current Medications: Active Medications Ascorbic Acid (Vitamin C -) 500 mg PO DAILY [facility] Last Admin: 04/24/18 09:00 Dose: 500 mg Aspirin (Asa -) 81 mg PO DAILY [facility] Last Admin: 04/24/18 09:01 Dose: 81 mg Atorvastatin Calcium (Lipitor -) 10 mg PO [facility] Last Admin: 04/23/18 21:18 Dose: 10 mg Bacitracin (Bacitracin -) 1 applic TP DAILY [facility] Last Admin: 04/24/18 09:02 Dose: 1 applic Calcium Acetate (Phoslo -) 667 mg PO TIDCM [facility] Last Admin: 04/24/18 08:56 Dose: 667 mg Docusate Sodium (Colace -) 100 mg PO BID [facility] Last Admin: 04/24/18 09:00 Dose: 100 mg Ferrous Sulfate (Feosol -) 325 mg PO TIDCM [facility] Last Admin: 04/24/18 08:56 Dose: 325 mg Gabapentin (Neurontin -) 100 mg PO [facility] Last Admin: 04/23/18 21:18 Dose: 100 mg Guaifenesin (Diabetic Tussin Dm -) 10 ml PO Q4H PRN PRN Reason: COUGH Heparin Sodium (Porcine) (Heparin -) 5,000 unit SQ TID [facility] Last Admin: 04/24/18 05:29 Dose: 5,000 unit Insulin Aspart (Novolog Vial Sliding Scale -) 1 vial SQ [facility]; Protocol Last Admin: 04/24/18 06:12 Dose: 2 units Labetalol HCl (Normodyne -) 200 mg PO TID [facility] Last Admin: 04/24/18 05:29 Dose: 200 mg Levofloxacin (Levaquin -) 250 mg PO Q48H [facility] Last Admin: 04/23/18 16:30 Dose: 250 mg Losartan Potassium (Cozaar -) 100 mg PO DAILY [facility] Last Admin: 04/24/18 09:00 Dose: 100 mg Minoxidil (Loniten -) 10 mg PO HS [facility] Last Admin: 04/23/18 21:18 Dose: 10 mg Nifedipine (Procardia Xl -) 60 mg PO BID [facility] Last Admin: 04/24/18 09:01 Dose: 60 mg - Objective Vital Signs: Vital Signs Temperature 98.5 F 04/24/18 05:00 Pulse Rate 73 04/24/18 05:00 Respiratory Rate 18 04/24/18 05:00 Blood Pressure 141/54 04/24/18 05:00 O2 Sat by Pulse Oximetry (%) 94 L 04/23/18 21:00 Constitutional: Yes: No Distress, Calm Neck: Yes: Supple Cardiovascular: Yes: Regular Rate and Rhythm Respiratory: Yes: Regular, Diminished, On Nasal O2 Gastrointestinal: Yes: Normal Bowel Sounds, Soft, Abdomen, Obese Edema: No Labs: CBC, BMP 04/24/18 05:30 04/24/18 05:30 INR, PTT INR 1.15 (0.82-1.09) H 04/15/18 05:55 - ....Imaging Chest X-ray: Report Reviewed (Improved congestion) MRI: Report Reviewed (Right 3rd metatarsal osteo) Problem List - Problems (1) Shortness of breath Code(s): R06.02 - SHORTNESS OF BREATH (2) ESRD (end stage renal disease) on dialysis Code(s): N18.6 - END STAGE RENAL DISEASE; Z99.2 - DEPENDENCE ON RENAL DIALYSIS (3) Acute on chronic diastolic (congestive) heart failure Code(s): I50.33 - ACUTE ON CHRONIC DIASTOLIC (CONGESTIVE) HEART FAILURE (4) Diabetes type 2, controlled Code(s): E11.9 - TYPE 2 DIABETES MELLITUS WITHOUT COMPLICATIONS Qualifiers: Diabetes mellitus complication status: with kidney complications Chronic kidney disease stage: stage 5, not on chronic dialysis (5) Hypertensive urgency Code(s): I10 - ESSENTIAL (PRIMARY) HYPERTENSION (6) Anemia, chronic renal failure Code(s): N18.9 - CHRONIC KIDNEY DISEASE, UNSPECIFIED; D63.1 - ANEMIA IN CHRONIC KIDNEY DISEASE (7) Hyperlipidemia Code(s): E78.5 - HYPERLIPIDEMIA, UNSPECIFIED Qualifiers: Hyperlipidemia type: pure hypercholesterolemia Qualified Code(s): E78.00 - Pure hypercholesterolemia, unspecified; E78.0 - Pure hypercholesterolemia (8) Hypertensive renal disease Code(s): I12.9 - HYPERTENSIVE CHRONIC KIDNEY DISEASE W STG 1-4/UNSP CHR KDNY (9) Peripheral artery disease Code(s): I73.9 - PERIPHERAL VASCULAR DISEASE, UNSPECIFIED Assessment/Plan 04/15/2018 Mild cLVH, normal LV fxn, mild TR, tr AR 1. Acute on chronic LV diastolic failure class II-III NYHA classification LV failure, resolved precipitated by 2. Hypertensive urgency, labile blood pressure, currently controlled 3. Right upper lobe pneumonia, resolving exertional dyspnea with hypoxia consideration for intrinsic lung disease/COPD 4. Type 2 DM 5. Hypercholesterolemia 6. ESRD on HD 7. PAD with right chronic foot osteomyelitis 8. Anemia of CKD PLAN: 1. HD and volume removal as per renal service, monitor Hgb and transfuse as needed 2. Continue Labetolol 200 tid and titrate dosage as needed 3. Continue Procardia XL 60 bid and ASA 81 qd 4. Continue Cozaar 100 qd 5. Continue Minoxidil 10 qhs 6. Continue Lipitor 10 qhs 7. LT antibiotic course as per ID 8. Wound care
--- NOTE | 2018-04-24 13:23 | PN ---
Progress Note, Physician Chief Complaint: The patient seen on dialysis. Comfortable. No chest pain. No shortness of breath. The right foot wound dressing in place. ID notes noted. History of Present Illness: The patient seen in dialysis. Tolerating well. She has a right foot gangrene, and vascular eval in progress - Current Medication List Current Medications: Active Medications Ascorbic Acid (Vitamin C -) 500 mg PO DAILY [facility] Last Admin: 04/24/18 09:00 Dose: 500 mg Aspirin (Asa -) 81 mg PO DAILY [facility] Last Admin: 04/24/18 09:01 Dose: 81 mg Atorvastatin Calcium (Lipitor -) 10 mg PO [facility] Last Admin: 04/23/18 21:18 Dose: 10 mg Bacitracin (Bacitracin -) 1 applic TP DAILY [facility] Last Admin: 04/24/18 09:02 Dose: 1 applic Calcium Acetate (Phoslo -) 667 mg PO [facility] Last Admin: 04/24/18 11:56 Dose: 667 mg Docusate Sodium (Colace -) 100 mg PO BID [facility] Last Admin: 04/24/18 09:00 Dose: 100 mg Ferrous Sulfate (Feosol -) 325 mg PO [facility]CM [facility] Last Admin: 04/24/18 11:56 Dose: 325 mg Gabapentin (Neurontin -) 100 mg PO [facility] Last Admin: 04/23/18 21:18 Dose: 100 mg Guaifenesin (Diabetic Tussin Dm -) 10 ml PO Q4H PRN PRN Reason: COUGH Heparin Sodium (Porcine) (Heparin -) 5,000 unit SQ TID [facility] Last Admin: 04/24/18 05:29 Dose: 5,000 unit Insulin Aspart (Novolog Vial Sliding Scale -) 1 vial SQ [facility]; Protocol Last Admin: 04/24/18 11:54 Dose: 2 units Labetalol HCl (Normodyne -) 200 mg PO TID [facility] Last Admin: 04/24/18 05:29 Dose: 200 mg Levofloxacin (Levaquin -) 250 mg PO Q48H [facility] Last Admin: 04/23/18 16:30 Dose: 250 mg Losartan Potassium (Cozaar -) 100 mg PO DAILY [facility] Last Admin: 04/24/18 09:00 Dose: 100 mg Minoxidil (Loniten -) 10 mg PO [facility] Last Admin: 04/23/18 21:18 Dose: 10 mg Nifedipine (Procardia Xl -) 60 mg PO BID [facility] Last Admin: 04/24/18 09:01 Dose: 60 mg - Objective Vital Signs: Vital Signs Temperature 98.2 F 04/24/18 09:00 Pulse Rate 74 04/24/18 09:00 Respiratory Rate 18 04/24/18 09:00 Blood Pressure 137/70 04/24/18 09:00 O2 Sat by Pulse Oximetry (%) 97 04/24/18 09:00 Constitutional: Yes: Well Nourished, No Distress Eyes: Yes: Conjunctiva Clear HENT: Yes: Normocephalic Cardiovascular: Yes: Regular Rate and Rhythm, S1, S2 Respiratory: Yes: CTA Bilaterally, Diminished Gastrointestinal: Yes: Normal Bowel Sounds, Soft Extremities: Yes: Other (Rt foot gangrene.) Edema: Yes Edema: RLE: Trace Wound/Incision: Yes: Dressing Dry and Intact Neurological: Yes: Alert, Oriented Labs: CBC, BMP 04/24/18 05:30 04/24/18 05:30 INR, PTT INR 1.15 (0.82-1.09) H 04/15/18 05:55 Problem List - Problems (1) Shortness of breath Code(s): R06.02 - SHORTNESS OF BREATH (2) ESRD (end stage renal disease) on dialysis Code(s): N18.6 - END STAGE RENAL DISEASE; Z99.2 - DEPENDENCE ON RENAL DIALYSIS (3) AV fistula Code(s): I77.0 - ARTERIOVENOUS FISTULA, ACQUIRED (4) Acute on chronic diastolic (congestive) heart failure Code(s): I50.33 - ACUTE ON CHRONIC DIASTOLIC (CONGESTIVE) HEART FAILURE (5) Anemia Code(s): D64.9 - ANEMIA, UNSPECIFIED Qualifiers: Anemia type: unspecified type Qualified Code(s): D64.9 - Anemia, unspecified (6) Bleeding from dialysis shunt Code(s): T82.838A - HEMORRHAGE DUE TO VASCULAR PROSTH DEV/GRFT, INIT Qualifiers: Encounter type: initial encounter Qualified Code(s): T82.838A - Hemorrhage due to vascular prosthetic devices, implants and grafts, initial encounter (7) Diabetes type 2, controlled Code(s): E11.9 - TYPE 2 DIABETES MELLITUS WITHOUT COMPLICATIONS Qualifiers: Diabetes mellitus complication status: with kidney complications Chronic kidney disease stage: stage 5, not on chronic dialysis (8) Foot pain, right Code(s): M79.671 - PAIN IN RIGHT FOOT (9) Paroxysmal atrial fibrillation Code(s): I48.0 - PAROXYSMAL ATRIAL FIBRILLATION (10) End stage renal disease Code(s): N18.6 - END STAGE RENAL DISEASE (11) Hypertension Code(s): I10 - ESSENTIAL (PRIMARY) HYPERTENSION Qualifiers: Hypertension type: essential hypertension Qualified Code(s): I10 - Essential (primary) hypertension (12) Congestive heart failure Code(s): I50.9 - HEART FAILURE, UNSPECIFIED Assessment/Plan 72 yo F w/ PMH of ESRD (dialysis MWF) at [facility] dialysis unit, CHF , HTN, DM2, who presents with worsening cough and SOB. Acute Congestive Heart failure in this 72 y/o female with ESRD, and volume overload. Resolved. The right foot gangrene is painful. Possible Osteomyelitis. On Vancomycin and Levaquin. Will continue for the recommended duration. Thank you. Will follow the patient with you. Sobeida Chavez MD
[2018-04-24 14:03] VITALS: TEMP 98.4
--- NOTE | 2018-04-24 14:21 | PN ---
Physical Exam: SUBJECTIVE: Patient seen and examined prior to dialysis. She states that she does not get short of breath with exertion at home, but she at times feels weak right before dialysis. Explained to her that she may need oxygen and we are currently testing her for it. OBJECTIVE: For her right toe osteomylitis, she will be on Vanco with dialysis and and Levaquin PO every 48 hours Vital Signs Period Temp Pulse Resp BP Sys/Parker Pulse Ox Last 24 Hr 98.2 F-98.6 F 67-78 18-20 137-166/54-75 94-97 GENERAL: The patient is awake, alert, and fully oriented, in no acute distress. HEAD: Normal with no signs of trauma. EYES: PERRL, extraocular movements intact, sclera anicteric, conjunctiva clear. No ptosis. ENT: Ears normal, nares patent, oropharynx clear without exudates, moist mucous membranes. NECK: Trachea midline, full range of motion, supple. LUNGS: Breath sounds equal, clear to auscultation bilaterally, no wheezes HEART: Regular rate and rhythm, compliance monitor discontinued ABDOMEN: Soft, nontender, nondistended, normoactive bowel sounds, no guarding, no rebound, no hepatosplenomegaly, no masses. EXTREMITIES: RLE with toe wound, dressing intact, not removed NEUROLOGICAL: Normal speech, gait not observed. PSYCH: Normal mood, normal affect. Laboratory Results - last 24 hr 04/23/18 04/23/18 04/24/18 16:33 21:17 05:30 WBC 5.4 RBC 3.00 L Hgb 7.9 L Hct 25.1 L MCV 83.8 MCH 26.5 MCHC 31.6 L RDW 17.9 H Plt Count 156 MPV 9.0 Absolute Neuts (auto) 3.8 Neutrophils % 71.1 Lymphocytes % 12.1 Monocytes % 9.7 Eosinophils % 5.8 H Basophils % 1.3 Nucleated RBC % 0 Sodium Potassium Chloride Carbon Dioxide Anion Gap BUN Creatinine Creat Clearance w eGFR POC Glucometer 154 169 Random Glucose Calcium Total Bilirubin AST ALT Alkaline Phosphatase Total Protein Albumin 04/24/18 04/24/18 04/24/18 05:30 05:36 11:53 WBC RBC Hgb Hct MCV MCH MCHC RDW Plt Count MPV Absolute Neuts (auto) Neutrophils % Lymphocytes % Monocytes % Eosinophils % Basophils % Nucleated RBC % Sodium 138 Potassium 4.2 Chloride 99 Carbon Dioxide 30 Anion Gap 9 BUN 27 H Creatinine 5.2 H Creat Clearance w eGFR 8.13 POC Glucometer 169 181 Random Glucose 149 H Calcium 8.6 Total Bilirubin 0.5 AST 22 ALT 22 Alkaline Phosphatase 119 H Total Protein 7.1 Albumin 3.5 Active Medications Generic Name Dose Route Start Last Admin Trade Name Freq PRN Reason Stop Dose Admin Ascorbic Acid 500 mg 04/20/18 10:00 04/24/18 09:00 Vitamin C - PO 500 mg DAILY [facility] Administration Aspirin 81 mg 04/20/18 10:00 04/24/18 09:01 Asa - PO 81 mg DAILY [facility] Administration Atorvastatin Calcium 10 mg 04/19/18 22:00 04/23/18 21:18 Lipitor - PO 10 mg HS [facility] Administration Bacitracin 1 applic 04/20/18 10:00 04/24/18 09:02 Bacitracin - TP 1 applic DAILY [facility] Administration Calcium Acetate 667 mg 04/20/18 08:00 04/24/18 11:56 Phoslo - PO 667 mg TIDCM [facility] Administration Docusate Sodium 100 mg 04/19/18 22:00 04/24/18 09:00 Colace - PO 100 mg BID [facility] Administration Ferrous Sulfate 325 mg 04/20/18 08:00 04/24/18 11:56 Feosol - PO 325 mg TIDCM [facility] Administration Gabapentin 100 mg 04/19/18 22:00 04/23/18 21:18 Neurontin - PO 100 mg HS [facility] Administration Guaifenesin 10 ml 04/19/18 18:33 Diabetic Tussin Dm - PO Q4H PRN COUGH Heparin Sodium (Porcine) 5,000 unit 04/19/18 22:00 04/24/18 05:29 Heparin - SQ 5,000 unit TID [facility] Administration Insulin Aspart 1 vial 04/23/18 16:30 04/24/18 11:54 Novolog Vial Sliding Scale - SQ 2 units ACHS [facility] Administration Protocol Labetalol HCl 200 mg 04/19/18 22:00 04/24/18 05:29 Normodyne - PO 200 mg TID [facility] Administration Levofloxacin 250 mg 04/23/18 16:15 04/23/18 16:30 Levaquin - PO 250 mg Q48H [facility] Administration Losartan Potassium 100 mg 04/20/18 10:00 04/24/18 09:00 Cozaar - PO 100 mg DAILY [facility] Administration Minoxidil 10 mg 04/19/18 22:00 04/23/18 21:18 Loniten - PO 10 mg HS [facility] Administration Nifedipine 60 mg 04/19/18 22:00 04/24/18 09:01 Procardia Xl - PO 60 mg BID [facility] Administration ASSESSMENT/PLAN: Patient is a 72 year old female with a significant past medical history of ESRD (dialysis MWF), CHF, HTN, DM2. She presents to the ED with worsening cough and SOB over the last two weeks. She also had anterior chest wall pain and upper back pain from persistent cough, which is now resolved. She reports increased edema to her bilateral lower extremities. Card: Shortness of breath, acute, will require home oxygen. Patient family willing to pay out of pocket. Acute CHF with ESRD. Shortness of breath likely secondary to volume overload. Patient has congestive changes to chest xray. Pre and post shows patient qualifies for oxygen. Discussed with renal, as they will attempt to remove more fluids if BP allows. Continue Labetalol, lorsartan. Vascular Right foot wound. On daily dressing changes. Vascular following s/p angiogram. No areas of stenosis or occlusions. Wound care daily with Santyl. MRI of foot shows possible osteomylitis. Will need Levaquin 250mg every 48hours x 5 weeks, Vancomycin with dialysis x 5 weeks. Pulm: Cough/Upper Resp. Infection. resolved, mild coughing. Renal ESRD. dialysis per renal - next tomorrow. Heme: Anemia of chronic disease. On Ferrous sulfate. FEN/prophy tolerating PO Monitor electrolytes low salt heparin PT Discharge home.
--- NOTE | 2018-04-24 14:57 | DS ---
Physical Exam: SUBJECTIVE: Patient seen and examined She states that she does not get short of breath with exertion at home, but she at times feels weak right before dialysis. Explained to her that she may need oxygen and we are currently testing her for it. OBJECTIVE: For her right toe osteomylitis, she will be on Vanco with dialysis and and Levaquin PO every 48 hours Vital Signs Period Temp Pulse Resp BP Sys/Parker Pulse Ox Last 24 Hr 98.2 F-98.6 F 67-78 18-20 137-166/54-75 94-97 PHYSICAL EXAM GENERAL: The patient is awake, alert, and fully oriented, in no acute distress. HEAD: Normal with no signs of trauma. EYES: PERRL, extraocular movements intact, sclera anicteric, conjunctiva clear. No ptosis. ENT: Ears normal, nares patent, oropharynx clear without exudates, moist mucous membranes. NECK: Trachea midline, full range of motion, supple. LUNGS: Breath sounds equal, clear to auscultation bilaterally, no wheezes HEART: Regular rate and rhythm, ekg monitor discontinued ABDOMEN: Soft, nontender, nondistended, normoactive bowel sounds, no guarding, no rebound, no hepatosplenomegaly, no masses. EXTREMITIES: RLE with toe wound, dressing intact, not removed NEUROLOGICAL: Normal speech, gait not observed. PSYCH: Normal mood, normal affect. LABS Laboratory Results - last 24 hr 04/23/18 04/23/18 04/24/18 16:33 21:17 05:30 WBC 5.4 RBC 3.00 L Hgb 7.9 L Hct 25.1 L MCV 83.8 MCH 26.5 MCHC 31.6 L RDW 17.9 H Plt Count 156 MPV 9.0 Absolute Neuts (auto) 3.8 Neutrophils % 71.1 Lymphocytes % 12.1 Monocytes % 9.7 Eosinophils % 5.8 H Basophils % 1.3 Nucleated RBC % 0 Sodium Potassium Chloride Carbon Dioxide Anion Gap BUN Creatinine Creat Clearance w eGFR POC Glucometer 154 169 Random Glucose Calcium Total Bilirubin AST ALT Alkaline Phosphatase Total Protein Albumin 04/24/18 04/24/18 04/24/18 05:30 05:36 11:53 WBC RBC Hgb Hct MCV MCH MCHC RDW Plt Count MPV Absolute Neuts (auto) Neutrophils % Lymphocytes % Monocytes % Eosinophils % Basophils % Nucleated RBC % Sodium 138 Potassium 4.2 Chloride 99 Carbon Dioxide 30 Anion Gap 9 BUN 27 H Creatinine 5.2 H Creat Clearance w eGFR 8.13 POC Glucometer 169 181 Random Glucose 149 H Calcium 8.6 Total Bilirubin 0.5 AST 22 ALT 22 Alkaline Phosphatase 119 H Total Protein 7.1 Albumin 3.5 HOSPITAL COURSE: Date of Admission:04/15/18 Date of Discharge: 04/24/18 ASSESSMENT/PLAN: Patient is a 72 year old female with a significant past medical history of ESRD (dialysis MWF), CHF, HTN, DM2. She presents to the ED with worsening cough and SOB over the last two weeks. She also had anterior chest wall pain and upper back pain from persistent cough, which is now resolved. She reports increased edema to her bilateral lower extremities. Card: Shortness of breath, acute, will require home oxygen. Patient family willing to pay out of pocket. Acute CHF with ESRD. Shortness of breath likely secondary to volume overload. Patient has congestive changes to chest xray. Pre and post shows patient qualifies for oxygen. Discussed with renal, as they will attempt to remove more fluids if BP allows. Continue Labetalol, lorsartan. Vascular Right foot wound. On daily dressing changes. Vascular following s/p angiogram. No areas of stenosis or occlusions. Wound care daily with Amauryyl. MRI of foot shows possible osteomylitis. Will need Levaquin 250mg every 48hours x 5 weeks, Vancomycin with dialysis x 5 weeks. Pulm: Cough/Upper Resp. Infection. resolved, mild coughing. Renal ESRD. dialysis per renal - next tomorrow. Heme: Anemia of chronic disease. On Ferrous sulfate. FEN/prophy tolerating PO Monitor electrolytes low salt heparin PT Discharge home. Minutes to complete discharge: 60 Discharge Summary Reason For Visit: CONGESTIVE HEART FAILURE,CHRONIC KIDNEY DISEASE Current Active Problems Peripheral artery disease (Acute) Shortness of breath (Acute) ESRD (end stage renal disease) on dialysis (Chronic) Condition: Improved - Instructions Diet, Activity, Other Instructions: Mira Iniguezjo: Usted vas a necesita oxigeno a dos liters. Usted tambien tiene kat infeccion el el pies y vas a nececita dos antibioticos for 5 semanas (hasta el fin de ). El Vancomycin es de ana y se lo van a mellissa con el dialysis El Levaquin 250mg es pastilla y usted tiene que kaylin la cada 48 hours, no todos los parker. Usted se abhinav el Levaquin 250mg hoy y la proxima vez que le toca es . Por favor de llamarme si usted or umanzor mary tienes preguntas. [facility] [phone] * Mrs Arron White: You will need oxygen at 2 liters daily for low oxygen levels. You also have an infection of your fight foot that you need antibiotics for for at least 5 weeks (through May 31) Vancomycin is an antibiotic IV and it will be given to you with dialysis. Levaquin 250mg is a antibiotic pill and you need to take it every other day. The last time you took it was on today, April 24 and its due next on 04/26. Please continue every over day until May 31. Please call me with any questions that you may have. Please clean your right foot wound with saline and keep the dressing dry and sterile. Yeny Silveira NP' [facility] [phone] Referrals: Ken Burgos [Non Staff, Medical] - 1 Week Disposition: HOME - Home Medications Comprehensive Discharge Medication List: Ambulatory Orders Losartan Potassium 100 mg PO DAILY 01/08/17 Labetalol HCl [Normodyne -] 200 mg PO TID #90 tablet 10/25/17 Minoxidil [Loniten -] 10 mg PO HS #30 tablet 10/25/17 Nifedipine [Nifedipine ER] 60 mg PO BID 02/11/18 Calcium Acetate [Phoslo -] 667 mg PO TID 03/09/18 Docusate Sodium 100 mg PO HS 03/09/18 Gabapentin 100 mg PO HS 03/09/18 Insulin (Levemir) [Levemir Vial] 8 unit SQ AM 03/09/18 Insulin (Levemir) [Levemir Vial] 10 unit SQ HS 03/09/18 Oxycodone HCl/Acetaminophen [Percocet 5-325 mg Tablet] 2 tab PO Q6H PRN MDD 4 tabs 03/09/18 Pravastatin Sodium [Pravachol -] 20 mg PO HS 03/09/18 Ascorbic Acid [Vitamin C -] 500 mg PO DAILY tablet 04/24/18 Aspirin [ASA -] 81 mg PO DAILY tab.chew 04/24/18 Bacitracin - [Bacitracin Topical Ointment -] 1 applic TP DAILY #1 tube 04/24/18 Ferrous Sulfate [Feosol] 325 mg PO TIDCM ud 04/24/18 levoFLOXacin [Levaquin -] 250 mg PO Q48H #20 tablet 04/24/18 This patient is new to me today: No Emergency Visit: Yes ED Registration Date: 04/15/18 Care time: The patient presented to the Emergency Department on the above date and was hospitalized for further evaluation of their emergent condition. Critical Care patient: No - Discharge Referral Referred to [facility] No
[2018-04-24 16:06] VITALS: PULSE 69
[2018-04-24 17:24] VITALS: BP 147/63
== END 2018-04-24 20:16 | disposition home or self-care (01) | DRG 194 ==
LOC: JER 00:29 → JERBED 04:24 → J4W 09:39
PROVIDERS: ADMIT Internal Medicine; ATTEND Nurse Practitioner Family
PROC: 5A1D70Z Performance of Urinary Filtration, Intermittent, Less than 6 Hours Per Day (ICD-10-PCS; principal; 2018-04-15)
PROC: 5A09457 Assistance with Respiratory Ventilation, 24-96 Consecutive Hours, Continuous Positive Airway Pressure (ICD-10-PCS; 2018-04-15)
PROC: 5A1D70Z Performance of Urinary Filtration, Intermittent, Less than 6 Hours Per Day (ICD-10-PCS; 2018-04-17)
PROC: 5A1D70Z Performance of Urinary Filtration, Intermittent, Less than 6 Hours Per Day (ICD-10-PCS; 2018-04-19)
PROC: B40DYZZ Plain Radiography of Aorta and Bilateral Lower Extremity Arteries using Other Contrast (ICD-10-PCS; 2018-04-19)
PROC: B40FYZZ Plain Radiography of Right Lower Extremity Arteries using Other Contrast (ICD-10-PCS; 2018-04-19)
PROC: 5A1D70Z Performance of Urinary Filtration, Intermittent, Less than 6 Hours Per Day (ICD-10-PCS; 2018-04-24)
DX: I13.2 Hypertensive heart and chronic kidney disease with heart failure and with stage 5 chronic kidney disease, or end stage renal disease (principal); I16.0 Hypertensive urgency; I50.33 Acute on chronic diastolic (congestive) heart failure; E11.22 Type 2 diabetes mellitus with diabetic chronic kidney disease; N18.6 End stage renal disease; E78.5 Hyperlipidemia, unspecified; D63.1 Anemia in chronic kidney disease; J18.9 Pneumonia, unspecified organism; I48.0 Paroxysmal atrial fibrillation; M54.5 Low back pain; E11.621 Type 2 diabetes mellitus with foot ulcer; M86.671 Other chronic osteomyelitis, right ankle and foot; E11.51 Type 2 diabetes mellitus with diabetic peripheral angiopathy without gangrene; L97.518 Non-pressure chronic ulcer of other part of right foot with other specified severity; Z86.73 Personal history of transient ischemic attack (TIA), and cerebral infarction without residual deficits; Z99.2 Dependence on renal dialysis; E66.8 Other obesity; Z68.30 Body mass index [BMI] 30.0-30.9, adult
CPT/HCPCS: 36415; 36600; 71045-TC-FY; 73718-TC; 75635-TC; 76000-TC-FY; 80053; 82550; 82728; 82803; 82962; 83540; 83550; 83735; 83880; 84100; 84466; 84484; 85025; 85610; 86704; 86706; 86708; 86850; 86900; 86901; 87040; 87340; 93005; 93010; 93306-TC; 94660; 94760; 94761; 99285-25; J0885; J1644

== ENCOUNTER 2018-11-07 14:46 | Emergency (ER) | payer OTHER ==
[2018-11-07 15:04] VITALS: BMI 30.9
--- NOTE | 2018-11-07 15:39 | PDOC ---
History of Present Illness - General Chief Complaint: Wound Stated Complaint: SORES Time Seen by Provider: 11/07/18 15:38 - History of Present Illness Initial Comments: 73yo F with PMH of CHF, ESRD on hemodialysis TuThSat with LUE AV fistula, HTN, HLD, DM presenting with cellulitis on her buttocks and groin since Sunday. Patient states she has had severe pain since Sunday. She has taken tylenol at home with minimal relief. Patient finished dialysis today and was afebrile. Patient reports she has had an abscess on her buttock about one year ago such that it had to be drained surgically at [facility]. She does not remember who the surgeon was. Denies fevers, chills, chest pain, or shortness of breath. Past History - Past Medical History Allergies/Adverse Reactions: Allergies Allergy/AdvReac Type Severity Reaction Status Date / Time No Known Allergies Allergy Verified 11/07/18 14:58 Home Medications: Ambulatory Orders Losartan Potassium 100 mg PO DAILY 01/08/17 Labetalol HCl [Normodyne -] 200 mg PO TID #90 tablet 10/25/17 Minoxidil [Loniten -] 10 mg PO HS #30 tablet 10/25/17 Nifedipine [Nifedipine ER] 60 mg PO BID 02/11/18 Calcium Acetate [Phoslo -] 667 mg PO TID 03/09/18 Docusate Sodium 100 mg PO HS 03/09/18 Gabapentin 100 mg PO HS 03/09/18 Insulin (Levemir) [Levemir Vial] 8 unit SQ AM 03/09/18 Insulin (Levemir) [Levemir Vial] 10 unit SQ HS 03/09/18 Oxycodone HCl/Acetaminophen [Percocet 5-325 mg Tablet] 2 tab PO Q6H PRN MDD 4 tabs 03/09/18 Pravastatin Sodium [Pravachol -] 20 mg PO HS 03/09/18 Ascorbic Acid [Vitamin C -] 500 mg PO DAILY tablet 04/24/18 Aspirin [ASA -] 81 mg PO DAILY tab.chew 04/24/18 Bacitracin - [Bacitracin Topical Ointment -] 1 applic TP DAILY #1 tube 04/24/18 Ferrous Sulfate [Feosol] 325 mg PO TIDCM ud 04/24/18 levoFLOXacin [Levaquin -] 250 mg PO Q48H #20 tablet 04/24/18 Clindamycin [Cleocin -] 900 mg PO TID #90 capsule 11/07/18 Anemia: Yes Asthma: No Cancer: No Cardiac Disorders: No CVA: No COPD: No CHF: Yes DVT: No Dementia: No Diabetes: Yes Dialysis: Yes GI Disorders: No Disorders: Yes (esrd, dialysis m/w/f) HTN: Yes Hypercholesterolemia: Yes Liver Disease: Yes Seizures: No Thyroid Disease: No - Surgical History Abdominal Surgery: Yes Appendectomy: No Cardiac Surgery: No Cholecystectomy: No Lung Surgery: No Neurologic Surgery: No Orthopedic Surgery: No - Immunization History Immunization Up to Date: Yes - Suicide/Smoking/Psychosocial Hx Smoking History: Never smoked Have you smoked in the past 12 months: No Number of Cigarettes Smoked Daily: 0 Hx Alcohol Use: No Drug/Substance Use Hx: No Substance Use Type: None Hx Substance Use Treatment: No Review of Systems - Review of Systems Comments:: Constitutional: no fever, no chills HEENT: no throat pain, no dysphagia Cardiovascular: no chest pain, no palpitations Respiratory: no cough, no shortness of breath Gastrointestinal: no abdominal pain, no nausea Genitourinary: no dysuria, no frequency Musculoskeletal: no myalgia, no arthralgia Skin: +skin infection, no bleeding Neurologic: no headache, no dizziness *Physical Exam - Vital Signs Last Vital Signs Temp Pulse Resp BP Pulse Ox 97.8 F 77 18 175/62 H 94 L 11/07/18 15:00 11/07/18 15:00 11/07/18 15:00 11/07/18 15:00 11/07/18 15:00 - Physical Exam Comments: General: Awake, alert, and fully oriented, in no acute distress Head: No signs of trauma Eyes: EOMI, sclera anicteric ENT: Moist mucus membranes Neck: Normal ROM, supple Lungs: Lungs clear, Normal breath sounds Cardio: Regular rhythm, S1 and S2 present Abdomen: Soft, nontender. No guarding, no rebound, no masses Extremities: Normal range of motion, Distal pulses present SKIN: area of induration on the inner left buttock superior to the anus about 1 cm in diameter, raised, with no erythema, drainage, or fluctuance; area of induration on the outer left labia about 1 cm in diameter, raised with erythema , with no drainage or fluctuance Neurologic: Cranial nerves II through XII grossly intact. Normal speech Moderate Sedation - Procedure Monitoring Vital Signs: Procedure Monitoring Vital Signs Temperature 97.8 F 11/07/18 15:00 Pulse Rate 77 11/07/18 15:00 Respiratory Rate 18 11/07/18 15:00 Blood Pressure 175/62 H 11/07/18 15:00 O2 Sat by Pulse Oximetry (%) 94 L 11/07/18 15:00 ED Treatment Course - LABORATORY CBC & Chemistry Diagram: 11/07/18 16:45 11/07/18 16:45 Medical Decision Making - Medical Decision Making 73yo F with PMH of CHF, ESRD on hemodialysis TuThSat with LUE AV fistula, HTN, HLD, DM presenting with cellulitis on her buttocks and groin since Sunday. -Labs: no leukocytosis -900mg Clindamycin IV -1g Ofirmev IV -Bedside US shows cobblestoning indicative of cellulitis; does not show any abscess. 11/07/18 17:[address] Mcmahan, covering for Dr. Chavez, who agreed with plan to discharge patient with oral antibiotics. She will follow-up with her primary care physician Dr. Burgos. Patient will also be dialyzed in two days. 11/07/18 18:06 *DC/Admit/Observation/Transfer Diagnosis at time of Disposition: Cellulitis - Discharge Dispostion Disposition: HOME Condition at time of disposition: Stable - Prescriptions Prescriptions: Clindamycin [Cleocin -] 900 mg PO TID #90 capsule - Referrals Referrals: Sobeida Chavez MD [Primary Care Provider] - Ken Burgos [Non Staff, Medical] - - Patient Instructions Printed Discharge Instructions: DI for Cellulitis -- Adult Additional Instructions: You came to the ED for cellulitis which is a type of skin infection Antibiotics prescription sent to your pharmacy. Clindamycin: take 3 tablets three times a day for three days Apply warm compresses to the area. Please read the handout. Follow up with your primary care physician, Dr. Burgos, in 5-7 days to discuss this ED visit and to evaluate your progress. Seek medical attention if any of the following occur: -Fever or chills -Accumulation of pus in the area -Increased pain or redness -Red streaks -Increased swelling - Post Discharge Activity
--- NOTE | 2018-11-07 16:05 | PDOC ---
Attending Attestation - [facility] HPI: 11/07/18 17:19 The patient is a 73 year old female, with a significant past medical history of ESRD (dialysis M/W/F), congestive heart failure, hypertension, hyperlipidemia, diabetes mellitus, who presents to the emergency department with pain to her left lower glute and suprapubic regions since Sunday. She states her the discomfort to her left gluteal fold is more like a fullness than a pain. She denies radiation of her discomfort. She states she has tried cortisone cream on her buttock without relief of her symptoms. She also reports a pain and tenderness to her suprapubic region. She states she has had abscesses in the past. She denies any drainage from either site. She states she completed a full dialysis today with no complications. The patient denies chest pain, shortness of breath, headache and dizziness. The patient denies fever, chills, nausea, vomit, diarrhea and constipation. The patient denies dysuria, frequency, urgency and hematuria. Allergies: NKDA Vascular: Dr. Enmanuel Asencio Documentation prepared by Taisha Leon, acting as medical insurance claims specialist for Sylvia Norton DO - Physicial Exam PE: 11/07/18 17:20 Constitutional: Awake, alert, oriented. No acute distress. Head: Normocephalic. Atraumatic Eyes: PERRL. EOMI. Conjunctivae are not pale. ENT: Mucous membranes are moist and intact. Posterior pharynx without exudates or erythema. Uvula midline. Neck: Supple. Full ROM. No lymphadenopathy. Cardiovascular: Regular rate. Regular rhythm. S1, S2 regular. Distal pulses are 2+ and symmetric. Pulmonary/Chest: No evidence of respiratory distress. Clear to auscultation bilaterally No wheezing, rales or rhonchi. Abdominal: (+) Obese, Soft and non-distended. There is no tenderness. No rebound, guarding or rigidity. No organomegaly. No palpable masses. Good bowel sounds. Back: No CVA tenderness. Musculoskeletal:(+) LUE AV fistula with palpable bruit and thrill. No edema. No cyanosis. No clubbing. Full range of motion in all extremities. Nocalf tenderness. Radial/pedal pulses are intact and 2+ bilaterally Skin: (+) There is a [id number] of tenderness and induration to left lower gluteal fold without erythema, fluctuance, or heat, There is a dime sized red indurated region to suprapubic region without erythema, fluctuance, or heat, Skin is warm and dry. No petechiae. No purpura. Neurological: Alert and oriented to person, place, and time. Cranial nerves II -XII are grossly intact. Normal speech. Strength is grossly symmetric. No sensory deficits. Psychiatric: Good eye contact. Normal interaction, affect and behavior. <Taisha Leon - Last Filed: 11/07/18 17:56> - Resident Resident Name: Marielle Pollack - ED Attending Attestation I have performed the following: I have examined & evaluated the patient, The case was reviewed & discussed with the resident, I agree w/resident's findings & plan, Exceptions are as noted - Medical Decision Making 11/07/18 16:05 I, Dr. Sylvia Norton, DO, attest that this document has been prepared under my direction and personally reviewed by me in its entirety. I further attest, that it accurately reflects all work, treatment, procedures and medical decision -making performed by me. 11/07/18 16:50 a/p: 73yo female with 2 small induated regions to the pelvic area and L buttock -bedside ultrasound shows cobblestoning, no abscess collection -no surrounding erythema -no f/c -no systemic symptoms -pt underwent full HD session today - LUE av fistula in place -will send labs, will start iv clinda and warm compresses -nothing to I&D at this time 11/07/18 18:01 residen discussed the case with Dr. Cooper who will assist with outpt followup will treat with clinda 450mg tid x 10 days warm compresses pt stable for dc to home and outpt follow up <Sylvia Nortno - Last Filed: 11/07/18 18:03> Heart Score/ECG Review - ECG Intrepretation Comment:: 11/07/18 18:02 sinus at 71, incomplete RBBB, LAFB, l cueto axis, interventricular conduction delay, t wave inversions I, avl 11/07/18 18:03 <Sylvia Norton - Last Filed: 11/07/18 18:03>
[2018-11-07] MEDS ORDERED: CLINDAMYCIN 900 MG PREMIX IVPB 900 MG/50 ML BAG IVPB ONE ×3 (16:39→17:55)
[2018-11-07 17:04] LABS: BASO % 0.9 % (0-2.0); EOS % 4.7 % (0-4.5); HEMATOCRIT 32.5 % (32.4-45.2); HEMOGLOBIN 11.1 GM/dL (10.7-15.3); LYMPH % 11.2 % (8-40); MCHC 34.1 g/dl (32.0-36.0); MEAN CELL VOLUME 82.1 fl (80-96); MEAN PLT VOLUME 9.1 fl (7.5-11.1); MONO % 7.1 % (3.8-10.2); NEUT % 76.1 % (42.8-82.8); PLATELET COUNT 153 K/MM3 (134-434); RBC 3.96 M/mm3 (3.60-5.2); RDW 16.4 % (11.6-15.6); WHITE BLOOD COUNT 6.6 K/mm3 (4.0-10.0)
[2018-11-07 17:25] LABS: INR 1.03 (0.83-1.09); PROTHROMBIN TIME (PATIENT) 12.2 SEC (9.7-13.0)
[2018-11-07 17:28] LABS: ACTIVATED PTT 35.2 SECONDS (25.2-36.5)
[2018-11-07] MEDS ORDERED: ACETAMINOPHEN 1000 MG/100 ML VIAL (NON FORMULARY) IVPB ONE (17:28)
[2018-11-07 17:32] LABS: ALK PHOS 171 U/L (45-117); ANION GAP 9 MMOL/L (8-16); BILIRUBIN,TOTAL 0.4 mg/dL (0.2-1); BLOOD UREA NITROGEN 23 mg/dL (7-18); CALCIUM 9.2 mg/dL (8.5-10.1); CHLORIDE 101 mmol/L (98-107); CO2 29 mmol/L (21-32); CREATININE 3.9 mg/dL (0.55-1.3); GLUCOSE,RANDOM 171 mg/dL (74-106); POTASSIUM 3.9 mmol/L (3.5-5.1); SGOT/AST 12 U/L (15-37); SGPT/ALT 17 U/L (13-61); SODIUM 138 mmol/L (136-145); TOT PROT 7.6 g/dl (6.4-8.2)
[2018-11-07] MEDS ORDERED: ACETAMINOPHEN INJECTION 100 ML IVPB ONE (17:54)
[2018-11-07 19:47] VITALS: BP 155/62; PULSE 66; TEMP 98.6
--- NOTE | 2018-11-08 09:17 | EKG ---
Test Reason : Blood Pressure : / mmHG Vent. Rate : 071 BPM Atrial Rate : 071 BPM P-R Int : 198 ms QRS Dur : 114 ms QT Int : 438 ms P-R-T Axes : 038 -56 086 degrees QTc Int : 475 ms NORMAL SINUS RHYTHM PULMONARY DISEASE PATTERN INCOMPLETE RIGHT BUNDLE BRANCH BLOCK LEFT ANTERIOR FASCICULAR BLOCK T WAVE ABNORMALITY, CONSIDER LATERAL ISCHEMIA ABNORMAL ECG WHEN COMPARED WITH ECG OF 15-APR-2018 01:34, INCOMPLETE RIGHT BUNDLE BRANCH BLOCK IS NOW PRESENT Confirmed by MARCELINO NEIL, DOMINICK ([id number]) on 11/08/2018 9:16:42 AM Referred By: Confirmed By:DOMINICK BENSON MD
== END 2018-11-07 19:45 | disposition home or self-care (01) ==
LOC: JER 14:46
PROC: 3E03329 Introduction of Other Anti-infective into Peripheral Vein, Percutaneous Approach (ICD-10-PCS; principal; 2018-11-07)
PROC: 3E033NZ Introduction of Analgesics, Hypnotics, Sedatives into Peripheral Vein, Percutaneous Approach (ICD-10-PCS; 2018-11-07)
DX: L03.317 Cellulitis of buttock (principal); I10 Essential (primary) hypertension; E78.5 Hyperlipidemia, unspecified; E11.9 Type 2 diabetes mellitus without complications; I50.9 Heart failure, unspecified
CPT/HCPCS: 36415; 71045-TC-FY; 80053; 85025; 85610; 85730; 87040; 93005; 93010; 99282-25; J0131

== ENCOUNTER 2019-10-06 20:13 | Inpatient (IN) | payer OTHER ==
--- NOTE | 2019-10-06 21:02 | PDOC ---
History of Present Illness - General Chief Complaint: Shortness of Breath Stated Complaint: FEVER/SORE THROAT Time Seen by Provider: 10/06/19 21:01 History Source: Patient Exam Limitations: No Limitations - History of Present Illness Initial Comments: Pt is a 73 yo F, with PMH of DM and ESRD (on HD T/R/Sat, LUE AVF), HTN, HLD, and COPD (2-3 L home O2), who is presenting with worsening SOB from baseline, increased oxygen use, subjective fever, and increased productive cough from baseline x1 day. Pt states her "throat hurts from coughing so much, and the mucus is more than normal". Pt no longer produces urine, and she has been consistently attending her HD sessions. Pt denies any headache, vision changes, syncope, chest pain, palpitations, SOB, nausea/vomiting, abdominal pain, diarrhea/constipation, or leg swelling from baseline. Allergies: NKDA PCP: Dr. Atkins Social: Pt denies any cigarette, alcohol, or drug use. Pt denies any recent travel or sick contacts. Surgical: L AVF Family: no relevant history. 10/07/19 00:04 Past History - Travel Traveled outside of the country in the last 30 days: No Close contact w/someone who was outside of country & ill: No - Past Medical History Allergies/Adverse Reactions: Allergies Allergy/AdvReac Type Severity Reaction Status Date / Time No Known Allergies Allergy Verified 11/07/18 14:58 Home Medications: Ambulatory Orders Losartan Potassium 100 mg PO DAILY 01/08/17 Labetalol HCl [Normodyne -] 200 mg PO TID #90 tablet 10/25/17 Minoxidil [Loniten -] 10 mg PO HS #30 tablet 10/25/17 Nifedipine [Nifedipine ER] 60 mg PO BID 02/11/18 Calcium Acetate [Phoslo -] 667 mg PO TID 03/09/18 Docusate Sodium 100 mg PO HS 03/09/18 Gabapentin 100 mg PO HS 03/09/18 Insulin (Levemir) [Levemir Vial] 8 unit SQ AM 03/09/18 Insulin (Levemir) [Levemir Vial] 10 unit SQ HS 03/09/18 Oxycodone HCl/Acetaminophen [Percocet 5-325 mg Tablet] 2 tab PO Q6H PRN MDD 4 tabs 03/09/18 Pravastatin Sodium [Pravachol -] 20 mg PO HS 03/09/18 Ascorbic Acid [Vitamin C -] 500 mg PO DAILY tablet 04/24/18 Aspirin [ASA -] 81 mg PO DAILY tab.chew 04/24/18 Bacitracin - [Bacitracin Topical Ointment -] 1 applic TP DAILY #1 tube 04/24/18 Ferrous Sulfate [Feosol] 325 mg PO TIDCM ud 04/24/18 levoFLOXacin [Levaquin -] 250 mg PO Q48H #20 tablet 04/24/18 Aspirin 81 mg PO DAILY 08/13/18 Clopidogrel Bisulfate [Plavix -] 75 mg PO DAILY 08/13/18 Docusate Sodium [Colace] 200 mg PO DAILY 08/13/18 Ferric Citrate [Auryxia] 2 tab PO TID 08/13/18 Gabapentin [Neurontin -] 100 mg PO BID 08/13/18 Glipizide [Glipizide ER] 5 mg PO DAILY 08/13/18 Insulin Detemir [Levemir Flextouch] 8 unit SQ DAILY 08/13/18 Labetalol HCl [Normodyne -] 200 mg PO TID 08/13/18 Lanthanum Carbonate [Fosrenol] 1,000 mg PO QID 08/13/18 Losartan Potassium 100 mg PO DAILY 08/13/18 Minoxidil [Loniten -] 10 mg PO HS 08/13/18 Nifedipine [Afeditab Cr] 30 mg PO BID 08/13/18 Nystatin Cream [Mycostatin] 1 applic TP BID 08/13/18 Oxycodone HCl/Acetaminophen [Percocet 5-325 mg Tablet] 1 tab PO Q6H PRN Pantoprazole Sodium 40 mg PO DAILY 08/13/18 Pravastatin Sodium [Pravachol] 20 mg PO HS 08/13/18 Clindamycin [Cleocin -] 900 mg PO TID #90 capsule 11/07/18 Anemia: Yes Asthma: No Cancer: No Cardiac Disorders: No CVA: No COPD: No CHF: Yes DVT: No Dementia: No Diabetes: Yes Dialysis: Yes (teu,jim,sat) GI Disorders: No Disorders: Yes (esrd, dialysis m/w/f) HTN: Yes Hypercholesterolemia: Yes Liver Disease: Yes Seizures: No Thyroid Disease: No - Surgical History Abdominal Surgery: Yes Appendectomy: No Cardiac Surgery: No Cholecystectomy: No Lung Surgery: No Neurologic Surgery: No Orthopedic Surgery: No - Immunization History Immunization Up to Date: Yes - Psycho Social/Smoking Cessation Hx Smoking History: Never smoked Have you smoked in the past 12 months: No Number of Cigarettes Smoked Daily: 0 Hx Alcohol Use: No Drug/Substance Use Hx: No Substance Use Type: None Hx Substance Use Treatment: No Respiratory Specific PMHX - Complaint Specific PMHX Hx Airway Support: No Hx Intubation: No Hx Asthma: Yes (COPD) Hx Smoking Exposure: No Hx Vaping: No Hx Allergic Rhinitis: No Hx Exposure to Respiratory Irritants: No Hx Bronchitis: No Hx Pneumonia: Yes Hx Pulmonary Embolus: No Hx TB (Tuberculosis): No Review of Systems - Review of Systems Able to Perform ROS?: Yes Is the patient limited Khmer proficient: No Constitutional: Yes: Chills, Fever, Loss of Appetite, Malaise, Weight Stable. No: Diaphoresis, Night Sweats, Weakness HEENTM: Yes: Throat Pain. No: Recent change in vision, Nose Congestion, Throat Swelling, Difficulty Swallowing Respiratory: Yes: Cough, Shortness of Breath, SOB with Exertion, SOB at Rest, Productive cough. No: Orthopnea, Wheezing, Hemoptysis Cardiac (ROS): No: Chest Pain, Edema, Irregular Heart Rate, Lightheadedness, Palpitations, Syncope, Chest Tightness ABD/GI: No: Constipated, Diarrhea, Nausea, Poor Appetite, Poor Fluid Intake, Vomiting : No: Frequency (no longer makes urine) Musculoskeletal: No: Back Pain, Joint Pain, Muscle Pain, Muscle Weakness Integumentary: No: Rash Neurological: No: Headache, Numbness, Weakness, Unsteady Gait, Dizziness Psychiatric: No: Sleep Pattern Change, Change in Appetite Endocrine: No: Increased Urine, Change in Weight Hematologic/Lymphatic: No: Anemia, Blood Clots, Easy Bleeding, Easy Bruising All Other Systems: Reviewed and Negative *Physical Exam - Vital Signs Last Vital Signs Temp Pulse Resp BP Pulse Ox 98.9 F 91 H 35 H 160/63 91 L 10/06/19 20:42 10/06/19 20:42 10/06/19 20:42 10/06/19 20:42 10/06/19 20:42 - Physical Exam Hypoxic (85% RA, increased to 93% on 3L NC), rectal (100.4), very warm to touch. Pt appears with increased work of breathing, but in NAD. Normal body habitus. Pt alert and oriented x3. 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 No midline spinal tenderness, step-offs, or crepitus. Head normocephalic, atraumatic. Eyes PERRLA, EOMI. Oropharynx without erythema or exudates, no LAD b/l. No nasal congestion. Hearing intact. Clear heart sounds, S1/S2, no JVD, b/l pedal edema, or heart murmur. Decreased breath sounds b/l, with crackles at LL lung. Increased WOB. No abdominal or CVA tenderness to palpation, no rebound, no guarding. Abdomen soft, non-distended, and with normoactive bowel sounds. Skin without jaundice or rash. 10/07/19 00:09 ED Treatment Course - LABORATORY CBC & Chemistry Diagram: 10/06/19 22:05 10/06/19 22:05 Medical Decision Making - Medical Decision Making Pt was seen at bedside, also will be seen by attending Dr. Gaines. Pt presenting with complaints of increased WOB, productive cough from baseline, fever. Crackles/diminished breath sounds LL lobe. Will evaluate with sepsis w/u for pneumonia vs pleural effusions vs ACS vs COPD exacerbation vs symptomatic anemia vs PE. Pt less likely PE with fever, improved with supplemental O2. Provided ofirmev, duonebs x3, 3 L NC O2 for improvement of SOB, fever. Will continue to reassess pt and monitor for symptomatic improvement. ECG: NSR, L anterior fascicular block, QRS widening (HR 84, MN 200, QRS 116, QTc 458). TWI in aVL, with no significant ST segment changes. No significant changes from prior ECG (11/07/2018). 10/07/19 00:12 CBC: WBC 17, anemia at baseline CMP WNL for pt pending her HD session Trop .04 with no new EKG changes Chest x-ray shows increased infiltrate in LL lobe Providing Vanc and Zosyn for broad spectrum coverage considering ESRD and higher risk for infection Pt breathing improved with duoneb tx Pt admitted to hospitalist team (Dr. Marlow) for oxygenation and IV antibiotics. Pt was significantly hypoxic on room air and requires inpatient management. Pending blood cultures. 10/07/19 00:26 Discharge - Discharge Information Problems reviewed: Yes Clinical Impression/Diagnosis: Hypoxia, ESRD (end stage renal disease) on dialysis Pneumonia Qualifiers: Pneumonia type: due to unspecified organism Laterality: left Lung location: lower lobe of lung Qualified Code(s): J18.9 - Pneumonia, unspecified organism Condition: Stable - Admission Yes - Follow up/Referral - Patient Discharge Instructions - Post Discharge Activity
[2019-10-06] MEDS ORDERED: ACETAMINOPHEN 1000 MG/100 ML VIAL (NON FORMULARY) IVPB ONE (21:33)
[2019-10-06] MEDS ORDERED: ALBUTEROL SO4 2.5/IPRATROPIUM 0.5 INH SOL 3 ML VIAL.NEB. NEB ONE (21:45)
[2019-10-06] MEDS ORDERED: ACETAMINOPHEN INJECTION 100 ML IVPB ONE (21:45)
[2019-10-06 22:13] LABS: BASO % 0.7 % (0-2.0); HEMOGLOBIN 9.7 GM/dL (10.7-15.3); MCH 25.4 pg (25.7-33.7); MCHC 31.5 g/dl (32.0-36.0); MEAN CELL VOLUME 80.8 fl (80-96); MEAN PLT VOLUME 10.3 fl (7.5-11.1); MONO % 6.4 % (3.8-10.2); NEUT % 89.9 % (42.8-82.8); PLATELET COUNT 125 K/MM3 (134-434); RBC 3.83 M/mm3 (3.60-5.2); RDW 18.8 % (11.6-15.6); WHITE BLOOD COUNT 17.1 K/mm3 (4.0-10.0)
[2019-10-06] MEDS: ALBUTEROL SO4 2.5/IPRATROPIUM 0.5 INH SOL 3 ML VIAL.NEB. NEB SCH ×2 (22:13→22:19)
[2019-10-06 22:18] LABS: VENOUS PC02 48.4 mmHg (38-52); VENOUS PH 7.35 (7.31-7.41); VENOUS PO2 53.6 mmHg (28-48)
--- NOTE | 2019-10-06 22:40 | PDOC ---
Attending Attestation - Resident Resident Name: Jada Mahmoodyla - ED Attending Attestation I have performed the following: I have examined & evaluated the patient, The case was reviewed & discussed with the resident, I agree w/resident's findings & plan, Exceptions are as noted - HPI HPI: 10/06/19 22:29 73 yo F h/o ESRD on hemodialysis t/r/s with LUE AV fistula, HTN, HLD, DM copd h/o prior pneumonia here with c/o generalized aches, fever. shortness of breath and cough. pt c/o nausea, no vomiting. no dysuria. no h/o blood clots. pt states received dialysis received it 2 days ago. states she feels sore throat, also has chest pain, back pain. cough productive of yellow phlegm. is h/o smoking quit 30 yr ago. uses Oxygen at home at night 2 -3 L depending. no other complaints. no recent travel. took tylenol this am 8 am. - Physicial Exam PE: 10/06/19 22:40 awake alert lungs with decreased breath sounds bilat bases. crackles and rhonchi heard with cough on right base. normal effort. pulse ox 84% on RA, ext wwp. abd soft nt nd. skin warm and dry. no rash. - Medical Decision Making 10/06/19 22:41 73 yo F h/o copd htn esrd hld dm here with c/o cough fever myalgia. differential bronchitis uti pyelo, pneumonia, flu, plan flu swab cxr ua culturs , will treat with bronchodilators. tyelnol rectal temp. 10/07/19 03:57 pt with pneumonia given abx resp status worsened while in ED with increased work of breathing. given duoneb. placed on Bipap. nehprology consulted pt will require dialysis in the am. Heart Score/ECG Review #1 ECG reviewed & interpreted by me at: 22:44 General ECG Interpretation: Sinus Rhythm, Normal Rate, Normal Intervals, No acute ischemic changes (TWI AVL)
[2019-10-06] MEDS ORDERED: VANCOMYCIN 1 GM in D5W (PRE-DOCKED) 1,000 MG/250 ML IVPB ONE (22:46)
[2019-10-06] MEDS ORDERED: PIPERACILLIN/TAZOB 3.375 GM 3.375 GM in DEXTROSE 5%-WATER - 50 ML IVPB ONE (22:47)
[2019-10-06 22:53] LABS: ALBUMIN 4.1 g/dl (3.4-5.0); BILIRUBIN,TOTAL 0.7 mg/dL (0.2-1); BLOOD UREA NITROGEN 57.1 mg/dL (7-18); CALCIUM 8.7 mg/dL (8.5-10.1); CREATININE 7.3 mg/dL (0.55-1.3); POTASSIUM 5.5 mmol/L (3.5-5.1); TOT PROT 8.1 g/dl (6.4-8.2)
--- NOTE | 2019-10-07 00:18 | PN ---
Teaching Attending Note Name of Resident: Jaguar Rivera ATTENDING PHYSICIAN STATEMENT I saw and evaluated the patient. I reviewed the resident's note and discussed the case with the resident. I agree with the resident's findings and plan as documented. SUBJECTIVE: 73 yo F h/o ESRD on hemodialysis t/r/s with LUE AV fistula, HTN, HLD, DM, COPD on home oxygen Complained of generalized aches, fevers and worsening shortness of breath and cough. Patient was nauseous but denied any vomiting or dysuria. Last dialysis session was about 2 days ago. No sick contacts or recent travels that were reported. Patient was noted to be desaturating into the high 70s on room air and was in visible respiratory distress and respiratory had to be called and placed on BiPAP. OBJECTIVE: Last Vital Signs Temp Pulse Resp BP Pulse Ox 100.4 F H 91 H 17 161/68 94 L 10/06/19 21:09 10/06/19 21:09 10/06/19 21:09 10/06/19 21:09 10/06/19 21:09 GENERAL: Well developed, well nourished. Awake and alert. Respiratory distress HEENT: Normocephalic, atraumatic. PERRLA, EOMI. No conjunctival pallor. Sclera are non- icteric. Moist mucous membranes. Oropharynx is clear. NECK: Supple. Full ROM. No JVD. Carotid pulses 2+ and symmetric, without bruits. No thyromegaly. No lymphadenopathy. CARDIOVASCULAR: Regular rate and rhythm. No murmurs, rubs, or gallops. Distal pulses are 2+ and symmetric. PULMONARY: Bibasilar crackles appreciated upon lung auscultation ABDOMINAL: Soft. Non-tender. Non-distended. No rebound or guarding. No organomegaly. Normoactive bowel sounds. MUSCULOSKELETAL Normal range of motion at all joints. No bony deformities or tenderness. No CVA tenderness. EXTREMITIES: Left upper extremity fistula noted SKIN: Warm and dry. Normal capillary refill. No rashes. No jaundice. PSYCHIATRIC: Cooperative. Good eye contact. Appropriate mood and affect. Abnormal Lab Results 10/06/19 10/06/19 10/06/19 22:05 22:05 22:05 WBC 17.1 H Hgb 9.7 L Hct 31.0 L MCH 25.4 L MCHC 31.5 L RDW 18.8 H Plt Count 125 L Absolute Neuts (auto) 15.4 H Neutrophils % 89.9 H Lymphocytes % 3.0 L D POC VBG pO2 53.6 H VBG O2 Sat (Armani) 85.4 H Sodium 133 L Potassium 5.5 H Chloride 95 L BUN 57.1 H Creatinine 7.3 H Random Glucose 305 H Alkaline Phosphatase 189 H B-Natriuretic Peptide 10/06/19 22:05 WBC Hgb Hct MCH MCHC RDW Plt Count Absolute Neuts (auto) Neutrophils % Lymphocytes % POC VBG pO2 VBG O2 Sat (Armani) Sodium Potassium Chloride BUN Creatinine Random Glucose Alkaline Phosphatase B-Natriuretic Peptide > 60102.0 H Imaging studies reviewed ASSESSMENT AND PLAN: 73-year-old woman with sepsis secondary to community-acquired pneumonia With hypoxic respiratory failure. Noted to have fever of 100.4 Fahrenheit, borderline tachycardia, leukocytosis. Admit to Telemetry BiPAP ABG Monitor respiratory status closely Monitor O2 sat closely Sputum culture Urine Legionella antigen and strep urine antigen Ceftriaxone and azithromycin empirically Supplemental oxygen as needed #Fluid overload likely secondary to underlying end-stage renal disease as well as possible CHF exacerbation. Evidenced by high BNP. Renal consult for hemodialysis Avoid excessive fluid and salt Would attempt to diurese with furosemide Monitor I's and O's and daily weights accurately #Chronic normocytic anemia and thrombocytopeniasuspect anemia of chronic disease. Would consider administration of EPO since hemoglobin is below 10 g/dL Ferrous sulfate supplementation Monitor platelets closely #Electrolyte disturbanceshyponatremia likely secondary to CHF and end-stage renal disease Monitor sodium closely Avoid free water intake DVT prophylaxis with heparin subcutaneously
--- NOTE | 2019-10-07 00:53 | HP ---
CHIEF COMPLAINT: Sore throat, cough PCP: [facility], [address], [place], [place] [id number] [phone] HISTORY OF PRESENT ILLNESS: 73 y/o female PMH IDDM, HTN, ESRD (T//Sun dialysis via LUE AV fistula), diastolic CHF, and COPD (on home oxygen) c/o 2 days of sore throat and cough. She states that her symptoms started suddenly with sore throat, which progressed to a cough productive of yellow tinged plegm. The cough became productive up to a table spoon. She says coughing fits are assoc with pain in her upper back that is worsened when she coughs. She endorses nausea, fever ( not recorded), and chills but has not vomited. She took tylenol and Robitussun with some relief. She received her flu and PNA shot this year. She denies sick contacts and recent travel. She denies numbness,tingling, and vision changes. She denies urinary symptoms, SOB, and CP. Later in ED visit she was noted to have fever of 100.4 Fahrenheit, borderline tachycardia, leukocytosis. She desat to the 70s and was placed on BiPAP. ER course was notable for: (1) Vancomycin mg IV administered (2) Given decompensation: Duoneb and placed on BiPAP (3) Nehprology consulted for HD in AM Recent Travel: Denies PAST MEDICAL HISTORY: as above PAST SURGICAL HISTORY: BL cataract surgery, LUE AV fistula Social History: Smoking: Some social smoking in youth but not in last 30 years Alcohol: Denies Drugs: Denies Family history: Children have DM Allergies: No Known Allergies Allergy (Verified 11/07/18 14:58) HOME MEDICATIONS: Home Medications Medication Instructions Recorded Losartan Potassium 100 mg PO DAILY 01/08/17 Labetalol HCl [Normodyne -] 200 mg PO TID #90 tablet 10/25/17 Minoxidil [Loniten -] 10 mg PO HS #30 tablet 10/25/17 Nifedipine [Nifedipine ER] 60 mg PO BID 02/11/18 Calcium Acetate [Phoslo -] 667 mg PO TID 03/09/18 Docusate Sodium 100 mg PO HS 03/09/18 Gabapentin 100 mg PO HS 03/09/18 Insulin (Levemir) [Levemir Vial] 8 unit SQ AM 03/09/18 Insulin (Levemir) [Levemir Vial] 10 unit SQ HS 03/09/18 Oxycodone HCl/Acetaminophen 2 tab PO Q6H PRN MDD 4 tabs 03/09/18 [Percocet 5-325 mg Tablet] Pravastatin Sodium [Pravachol -] 20 mg PO HS 03/09/18 Ascorbic Acid [Vitamin C -] 500 mg PO DAILY tablet 04/24/18 Aspirin [ASA -] 81 mg PO DAILY tab.chew 04/24/18 Bacitracin - [Bacitracin Topical 1 applic TP DAILY #1 tube 04/24/18 Ointment -] Ferrous Sulfate [Feosol] 325 mg PO TIDCM ud 04/24/18 levoFLOXacin [Levaquin -] 250 mg PO Q48H #20 tablet 04/24/18 Aspirin 81 mg PO DAILY 08/13/18 Clopidogrel Bisulfate [Plavix -] 75 mg PO DAILY 08/13/18 Docusate Sodium [Colace] 200 mg PO DAILY 08/13/18 Ferric Citrate [Auryxia] 2 tab PO TID 08/13/18 Gabapentin [Neurontin -] 100 mg PO BID 08/13/18 Glipizide [Glipizide ER] 5 mg PO DAILY 08/13/18 Insulin Detemir [Levemir Flextouch] 8 unit SQ DAILY 08/13/18 Labetalol HCl [Normodyne -] 200 mg PO TID 08/13/18 Lanthanum Carbonate [Fosrenol] 1,000 mg PO QID 08/13/18 Losartan Potassium 100 mg PO DAILY 08/13/18 Minoxidil [Loniten -] 10 mg PO HS 08/13/18 Nifedipine [Afeditab Cr] 30 mg PO BID 08/13/18 Nystatin Cream [Mycostatin] 1 applic TP BID 08/13/18 Oxycodone HCl/Acetaminophen 1 tab PO Q6H PRN 08/13/18 [Percocet 5-325 mg Tablet] Pantoprazole Sodium 40 mg PO DAILY 08/13/18 Pravastatin Sodium [Pravachol] 20 mg PO HS 08/13/18 Clindamycin [Cleocin -] 900 mg PO TID #90 capsule 11/07/18 REVIEW OF SYSTEMS CONSTITUTIONAL: Absent: fever, chills, diaphoresis, generalized weakness, malaise, loss of appetite, weight change HEENT: Absent: rhinorrhea, nasal congestion, throat pain, throat swelling, difficulty swallowing, mouth swelling, ear pain, eye pain, visual changes CARDIOVASCULAR: Absent: chest pain, syncope, palpitations, irregular heart rate, lightheadedness , peripheral edema RESPIRATORY: Absent: cough, shortness of breath, dyspnea with exertion, orthopnea, wheezing, stridor, hemoptysis GASTROINTESTINAL: Absent: abdominal pain, abdominal distension, nausea, vomiting, diarrhea, constipation, melena, hematochezia GENITOURINARY: Absent: dysuria, frequency, urgency, hesitancy, hematuria, flank pain, genital pain MUSCULOSKELETAL: Absent: myalgia, arthralgia, joint swelling, back pain, neck pain SKIN: Absent: rash, itching, pallor HEMATOLOGIC/IMMUNOLOGIC: Absent: easy bleeding, easy bruising, lymphadenopathy, frequent infections ENDOCRINE: Absent: unexplained weight gain, unexplained weight loss, heat intolerance, cold intolerance NEUROLOGIC: Absent: headache, focal weakness or paresthesias, dizziness, unsteady gait, seizure, mental status changes, bladder or bowel incontinence PSYCHIATRIC: Absent: anxiety, depression, suicidal or homicidal ideation, hallucinations. PHYSICAL EXAMINATION Vital Signs - 24 hr 10/06/19 10/06/19 10/06/19 20:42 21:00 21:09 Temperature 98.9 F 100.4 F H Pulse Rate 91 H 91 H Respiratory 35 H 17 Rate Blood Pressure 160/63 161/68 O2 Sat by Pulse 91 L 94 L 94 L Oximetry (%) GENERAL: Awake, alert, and fully oriented, in no acute distress. HEAD: Normal with no signs of trauma. EYES: Pupils equal, round and reactive to light, extraocular movements intact, sclera anicteric, conjunctiva clear. No lid lag. EARS, NOSE, THROAT: Ears normal, nares patent, oropharynx clear without exudates. Moist mucous membranes. NECK: Normal range of motion, supple without lymphadenopathy, JVD, or masses. LUNGS: Breath sounds equal, clear to auscultation bilaterally. No wheezes, and no crackles. No accessory muscle use. HEART: Regular rate and rhythm, normal S1 and S2 without murmur, rub or gallop. ABDOMEN: Soft, nontender, not distended, normoactive bowel sounds, no guarding, no rebound, no masses. No hepatomegaly or splenomegaly. MUSCULOSKELETAL: Normal range of motion at all joints. No bony deformities or tenderness. No CVA tenderness. UPPER EXTREMITIES: 2+ pulses, warm, well-perfused. No cyanosis. No clubbing. No peripheral edema. LOWER EXTREMITIES: 2+ pulses, warm, well-perfused. No calf tenderness. No peripheral edema. NEUROLOGICAL: Cranial nerves II-XII intact. Normal speech. Normal gait. PSYCHIATRIC: Cooperative. Good eye contact. Appropriate mood and affect. SKIN: Warm, dry, normal turgor, no rashes or lesions noted, normal capillary refill. Laboratory Results - last 24 hr 10/06/19 10/06/19 10/06/19 21:37 21:37 22:05 WBC 17.1 H RBC 3.83 Hgb 9.7 L Hct 31.0 L MCV 80.8 MCH 25.4 L MCHC 31.5 L RDW 18.8 H Plt Count 125 L MPV 10.3 D Absolute Neuts (auto) 15.4 H Neutrophils % 89.9 H Lymphocytes % 3.0 L D Monocytes % 6.4 Eosinophils % 0.0 D Basophils % 0.7 Nucleated RBC % 0 VBG pH POC VBG pCO2 POC VBG pO2 VBG HCO3 VBG O2 Sat (Armani) VBG Base Excess Sodium Potassium Chloride Carbon Dioxide Anion Gap BUN Creatinine Est GFR (CKD-EPI)AfAm Est GFR (CKD-EPI)NonAf Random Glucose Lactic Acid Calcium Total Bilirubin AST ALT Alkaline Phosphatase Troponin I B-Natriuretic Peptide Total Protein Albumin Influenza A (Rapid) Negative Influenza B (Rapid) Negative Group A Strep Rapid Negative 10/06/19 10/06/19 10/06/19 22:05 22:05 22:05 WBC RBC Hgb Hct MCV MCH MCHC RDW Plt Count MPV Absolute Neuts (auto) Neutrophils % Lymphocytes % Monocytes % Eosinophils % Basophils % Nucleated RBC % VBG pH 7.35 POC VBG pCO2 48.4 POC VBG pO2 53.6 H VBG HCO3 26.2 VBG O2 Sat (Armani) 85.4 H VBG Base Excess 0.9 Sodium 133 L Potassium 5.5 H Chloride 95 L Carbon Dioxide 26 Anion Gap 12 BUN 57.1 H Creatinine 7.3 H Est GFR (CKD-EPI)AfAm 5.85 Est GFR (CKD-EPI)NonAf 5.05 Random Glucose 305 H Lactic Acid Calcium 8.7 Total Bilirubin 0.7 AST 18 ALT 19 Alkaline Phosphatase 189 H Troponin I 0.04 B-Natriuretic Peptide Total Protein 8.1 Albumin 4.1 Influenza A (Rapid) Influenza B (Rapid) Group A Strep Rapid 10/06/19 10/06/19 22:05 22:05 WBC RBC Hgb Hct MCV MCH MCHC RDW Plt Count MPV Absolute Neuts (auto) Neutrophils % Lymphocytes % Monocytes % Eosinophils % Basophils % Nucleated RBC % VBG pH POC VBG pCO2 POC VBG pO2 VBG HCO3 VBG O2 Sat (Armani) VBG Base Excess Sodium Potassium Chloride Carbon Dioxide Anion Gap BUN Creatinine Est GFR (CKD-EPI)AfAm Est GFR (CKD-EPI)NonAf Random Glucose Lactic Acid 1.1 Calcium Total Bilirubin AST ALT Alkaline Phosphatase Troponin I B-Natriuretic Peptide > 15078.0 H Total Protein Albumin Influenza A (Rapid) Influenza B (Rapid) Group A Strep Rapid ASSESSMENT/PLAN: 73 y/o female PMH IDDM, HTN, ESRD (T//Sat dialysis via LUE AV fistula), diastolic CHF, and COPD (on home oxygen) c/o 2 days of sore throat and cough, consistent with URI. Noted to have fever of 100.4 Fahrenheit, borderline tachycardia, leukocytosis. # Sepsis 2/2 URI; Acute hypoxic respiratory failure, PNA vs ESRD fluid overload - Ceftriaxone 1 gm IV and azithromycin 500 mg empirically - Leukocytosis, RR 27, pulm infiltrates on CXR - BiPAP - ABG - Monitor O2 sat closely - Sputum culture - Urine Legionella antigen and strep urine antigen - Consult nephrology for HD - Trial of lasix with I/O and daily weights # Normocytic anemia and thrombocytopenia - Ferrous sulfate supplementation - Repeat CBC (f/u platelets) # Electrolyte disturbances Hyponatremia likely secondary to CHF and end-stage renal disease - Repear BMP - Fluid intake restriciton # DM - Hold home regimen - ISS ACHS - Levemir 10 units HS # HTN - Cont. curent home regimen #F/E/N - PO - Cont. to monitor - Renal diet with diabetic and low sodium modification # DVT prophylaxis - Heparin SQ # Disposition - Admit to med/surg Jaguar Rivera MD Visit type - Emergency Visit Emergency Visit: Yes ED Registration Date: 10/06/19 Care time: The patient presented to the Emergency Department on the above date and was hospitalized for further evaluation of their emergent condition. - New Patient This patient is new to me today: Yes Date on this admission: 10/07/19 - Critical Care Critical Care patient: No ATTENDING PHYSICIAN STATEMENT I saw and evaluated the patient. I reviewed the resident's note and discussed the case with the resident. I agree with the resident's findings and plan as documented. SUBJECTIVE: OBJECTIVE: ASSESSMENT AND PLAN:
[2019-10-07] MEDS ORDERED: PIPERACILLIN/TAZOB 3.375 GM 3.375 GM/50 ML BAG IVPB ONE (00:59)
[2019-10-07] MEDS ORDERED: VANCOMYCIN 1 GRAM (PRE-DOCKED) 1,000 MG/250 ML BAG IVPB ONE (02:05)
[2019-10-07 02:54] LABS: ARTERIAL BLD GAS O2 SATURATION 76 % (95-98); ARTERIAL BLOOD GAS BASE EXCESS 0.9 meq/l (-2-2); ARTERIAL BLOOD GAS PCO2 45 mmHg (35-45); ARTERIAL BLOOD GAS pH 7.35 (7.35-7.45); CARBOXYHEMOGLOBIN 1.6 % (0-2)
[2019-10-07 03:02] LABS: ALLENS TEST POSITIVE
[2019-10-07 03:04] LABS: ARTERIAL BLOOD GAS PO2 < 49 mmHg (80-100)
[2019-10-07] MEDS ORDERED: ALBUTEROL SO4 2.5/IPRATROPIUM 0.5 INH SOL 3 ML VIAL.NEB. NEB ONE ×2 (03:49→03:58)
[2019-10-07] MEDS ORDERED: FUROSEMIDE 40 MG/4 ML INJECTABLE VIAL IVPUSH ONE ×2 (03:59→04:08)
[2019-10-07] MEDS ORDERED: ALBUTEROL SO4 0.083% IH SOL 2.5 MG/3 ML VIAL.NEB. NEB ONE ×2 (05:09→08:53)
[2019-10-07] MEDS ORDERED: FUROSEMIDE 40 MG/4 ML INJECTABLE VIAL ONE (05:09)
[2019-10-07] MEDS: ALBUTEROL SO4 0.083% IH SOL 2.5 MG/3 ML VIAL.NEB. NEB SCH ×3 (05:20→11:47)
[2019-10-07] MEDS: HEPARIN NA (PORCINE) 5,000 UNITS/ML 1ML VIAL SQ SCH ×2 (05:21→21:44)
[2019-10-07 06:25] LABS: ARTERIAL BLD GAS O2 SATURATION 95.4 % (95-98); ARTERIAL BLOOD GAS BASE EXCESS -0.9 meq/l (-2-2); ARTERIAL BLOOD GAS PCO2 40.4 mmHg (35-45); ARTERIAL BLOOD GAS PO2 78.8 mmHg (80-100); ARTERIAL BLOOD GAS pH 7.38 (7.35-7.45)
[2019-10-07] MEDS ORDERED: LABETALOL HCL 100 MG TABLET (FP) ONE (06:30)
[2019-10-07 06:32] LABS: ALLENS TEST POSITIVE
[2019-10-07] MEDS: LABETALOL HCL 200 MG TABLET (FP) PO SCH ×3 (06:33→22:03)
[2019-10-07 07:19] LABS: HEMATOCRIT 30.3 % (32.4-45.2); HEMOGLOBIN 9.7 GM/dL (10.7-15.3); MCH 25.6 pg (25.7-33.7); MCHC 31.9 g/dl (32.0-36.0); MEAN CELL VOLUME 80.3 fl (80-96); MEAN PLT VOLUME 10.4 fl (7.5-11.1); PLATELET COUNT 129 K/MM3 (134-434); RBC 3.77 M/mm3 (3.60-5.2); RDW 18.4 % (11.6-15.6); WHITE BLOOD COUNT 17.1 K/mm3 (4.0-10.0)
[2019-10-07] MEDS: INSULIN SLIDING SCALE (NOVOLOG) 1 VIAL SQ SCH ×4 (07:19→21:46)
[2019-10-07 07:39] LABS: BLOOD UREA NITROGEN 60.8 mg/dL (7-18); CALCIUM 8.5 mg/dL (8.5-10.1); MAGNESIUM 2.5 mg/dL (1.8-2.4); PHOSPHOROUS 3.1 mg/dL (2.5-4.9); POTASSIUM 5.3 mmol/L (3.5-5.1)
[2019-10-07 07:41] LABS: CREATININE 7.9 mg/dL (0.55-1.3)
[2019-10-07] MEDS ORDERED: ACETAMINOPHEN 1000 MG/100 ML VIAL (NON FORMULARY) IVPB ONE ×2 (08:49→17:21)
[2019-10-07] MEDS ORDERED: ACETAMINOPHEN INJECTION 100 ML IVPB ONE (08:52)
--- NOTE | 2019-10-07 09:27 | EKG ---
Test Reason : Blood Pressure : / mmHG Vent. Rate : 084 BPM Atrial Rate : 084 BPM P-R Int : 200 ms QRS Dur : 116 ms QT Int : 388 ms P-R-T Axes : 034 -46 080 degrees QTc Int : 458 ms NORMAL SINUS RHYTHM PULMONARY DISEASE PATTERN LEFT ANTERIOR FASCICULAR BLOCK LEFT VENTRICULAR HYPERTROPHY WITH QRS WIDENING ABNORMAL ECG WHEN COMPARED WITH ECG OF 07-NOV-2018 17:05, INCOMPLETE RIGHT BUNDLE BRANCH BLOCK IS NO LONGER PRESENT Confirmed by MD Emily, Avel ([id number]) on 10/07/2019 9:27:47 AM Referred By: Confirmed By:Avel Diaz MD
[2019-10-07] MEDS ORDERED: AZITHROMYCIN IVPB 500 MG/250 ML BAG IVPB ONE (09:32)
[2019-10-07] MEDS ORDERED: CEFTRIAXONE 1 GM/50 ML BAG ONE (09:32)
[2019-10-07] MEDS: GABAPENTIN 100 MG CAPSULE (FP) PO SCH ×2 (09:44→22:03)
[2019-10-07] MEDS: CLOPIDOGREL BISULFATE 75 MG TABLET (FP) PO SCH (09:44)
[2019-10-07] MEDS: NIFEdipine E.R 60 MG TABLET (UD) PO SCH (09:44)
[2019-10-07] MEDS: CEFTRIAXONE 1 GM in DEXTROSE 5%-WATER - 50 ML IVPB SCH (09:44)
[2019-10-07] MEDS: ASPIRIN 81 MG CHEWABLE TABLETS PO SCH (09:44)
[2019-10-07] MEDS ORDERED: LOSARTAN POTASSIUM 50 MG TABLET (FP) PO SCH (10:00)
[2019-10-07] MEDS ORDERED: NIFEdipine E.R 60 MG TABLET (UD) PO SCH (10:00)
[2019-10-07] MEDS ORDERED: PATIENT'S OWN MEDICATION (NON-FORMULARY) (Losartan Potassium [Losartan Potassium] 100 MG) PO SCH (10:00)
[2019-10-07] MEDS ORDERED: SODIUM CHLORIDE 250 ML IV PRN ×2 (10:16→12:08)
[2019-10-07] MEDS: AZITHROMYCIN IVPB 500 MG/250 ML BAG IVPB SCH (10:42)
[2019-10-07] MEDS: PANTOPRAZOLE 40 MG TABLET (FP) PO SCH (10:42)
[2019-10-07] MEDS ORDERED: EPOETIN ALFA 3,000 UNIT/1 ML ML IVPUSH ONE (12:15)
--- NOTE | 2019-10-07 12:33 | CON.PULM ---
Consult Consult Specialty:: PULMONARY Referred by:: RANCHO Escoto Reason for Consultation:: shortness of breath - History of Present Illness Chief Complaint: shortness of breath History of Present Illness: 73yo female with h/o HTN, DM, COPD, chronic hypoxic respiratory failure on home O2, ESRD on HD, LV diastolic dysfunctin who was admitted with worsening shortness of breath x 2 days. Also reports cough productive of yellow sputum and sore throat. Febrile to 100.4 on presentation. No chest pain or palpitations. Denies sick contacts or recent travel. Desaturated to 70s in the ER, placed on BiPAP, now on dialysis. 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) Cardio/Vascular: Yes: CHF (chronic diastolic), HTN, Hyperlipdemia Renal/: Yes: Renal Failure, Hemodialysis Musculoskeletal: Yes: Chronic low back pain Endocrine: Yes: Diabetes Mellitus - Past Surgical History Past Surgical History: Yes: AV Fistula/Graft - Alcohol/Substance Use Hx Alcohol Use: No History of Substance Use: reports: None - Smoking History Smoking history: Never smoked Have you smoked in the past 12 months: No Aproximately how many cigarettes per day: 0 - Social History ADL: Independent History of Recent Travel: No Home Medications - Allergies Allergies/Adverse Reactions: Allergies Allergy/AdvReac Type Severity Reaction Status Date / Time No Known Allergies Allergy Verified 11/07/18 14:58 - Home Medications Home Medications: Ambulatory Orders Losartan Potassium 100 mg PO DAILY 01/08/17 Labetalol HCl [Normodyne -] 200 mg PO TID #90 tablet 10/25/17 Minoxidil [Loniten -] 10 mg PO HS #30 tablet 10/25/17 Nifedipine [Nifedipine ER] 60 mg PO BID 02/11/18 Calcium Acetate [Phoslo -] 667 mg PO TID 03/09/18 Docusate Sodium 100 mg PO HS 03/09/18 Gabapentin 100 mg PO HS 03/09/18 Insulin (Levemir) [Levemir Vial] 8 unit SQ AM 03/09/18 Insulin (Levemir) [Levemir Vial] 10 unit SQ HS 03/09/18 Oxycodone HCl/Acetaminophen [Percocet 5-325 mg Tablet] 2 tab PO Q6H PRN MDD 4 tabs 03/09/18 Pravastatin Sodium [Pravachol -] 20 mg PO HS 03/09/18 Ascorbic Acid [Vitamin C -] 500 mg PO DAILY tablet 04/24/18 Aspirin [ASA -] 81 mg PO DAILY tab.chew 04/24/18 Bacitracin - [Bacitracin Topical Ointment -] 1 applic TP DAILY #1 tube 04/24/18 Ferrous Sulfate [Feosol] 325 mg PO TIDCM ud 04/24/18 levoFLOXacin [Levaquin -] 250 mg PO Q48H #20 tablet 04/24/18 Clopidogrel Bisulfate [Plavix -] 75 mg PO DAILY 08/13/18 Docusate Sodium [Colace] 200 mg PO DAILY 08/13/18 Ferric Citrate [Auryxia] 2 tab PO TID 08/13/18 Gabapentin [Neurontin -] 100 mg PO BID 08/13/18 Glipizide [Glipizide ER] 5 mg PO DAILY 08/13/18 Insulin Detemir [Levemir Flextouch] 8 unit SQ DAILY 08/13/18 Labetalol HCl [Normodyne -] 200 mg PO TID 08/13/18 Lanthanum Carbonate [Fosrenol] 1,000 mg PO QID 08/13/18 Losartan Potassium 100 mg PO DAILY 08/13/18 Minoxidil [Loniten -] 10 mg PO HS 08/13/18 Nifedipine [Afeditab Cr] 30 mg PO BID 08/13/18 Nystatin Cream [Mycostatin] 1 applic TP BID 08/13/18 Oxycodone HCl/Acetaminophen [Percocet 5-325 mg Tablet] 1 tab PO Q6H PRN Pantoprazole Sodium 40 mg PO DAILY 08/13/18 Pravastatin Sodium [Pravachol] 20 mg PO HS 08/13/18 Clindamycin [Cleocin -] 900 mg PO TID #90 capsule 11/07/18 Review of Systems - Review of Systems Constitutional: reports: Fever, Weakness Eyes: denies: Recent Change in Vision HENT: reports: Throat Pain. denies: Nasal Congestion Neck: denies: Stiffness, Tenderness Cardiovascular: reports: Shortness of Breath. denies: Chest Pain Respiratory: reports: Cough, SOB. denies: Hemoptysis, Wheezing Gastrointestinal: denies: Abdominal Pain, Nausea, Vomiting Genitourinary: denies: Dysuria, Hematuria Neurological: denies: Dizziness, Headache Endocrine: reports: Unexplained Weight Loss Physical Exam Vital Sings: Vital Signs Temperature 98 F 10/07/19 11:21 Pulse Rate 72 10/07/19 11:21 Respiratory Rate 18 10/07/19 11:21 Blood Pressure 160/62 10/07/19 11:21 O2 Sat by Pulse Oximetry (%) 93 L 10/07/19 11:21 Constitutional: Yes: Calm Eyes: Yes: Conjunctiva Clear, EOM Intact HENT: Yes: Atraumatic, Normocephalic Neck: Yes: Supple, Trachea Midline Cardiovascular: Yes: Regular Rate and Rhythm Respiratory: Yes: Rhonchi ...Clubbing: No Gastrointestinal: Yes: Normal Bowel Sounds, Soft. No: Tenderness Edema: No Neurological: Yes: Alert, Oriented Labs: CBC, BMP 10/07/19 06:27 10/07/19 06:27 ABG Results ABG pH 7.38 (7.35-7.45) 10/07/19 06:18 ABG pCO2 at Pt Temp 40.4 mmHg (35-45) 10/07/19 06:18 ABG pO2 at Pt Temp 78.8 mmHg (80-100) L 10/07/19 06:18 ABG HCO3 23.5 mmol/L (22-27) 10/07/19 06:18 ABG O2 Sat (Measured) 95.4 % (95-98) 10/07/19 06:18 ABG O2 Content 13.0 % vol 10/07/19 06:18 ABG Base Excess -0.9 meq/l (-2-2) 10/07/19 06:18 Imaging - Results Chest X-ray: Report Reviewed, Image Reviewed (pulmonary vascular congestion) Problem List - Problems (1) Acute on chronic diastolic (congestive) heart failure Code(s): I50.33 - ACUTE ON CHRONIC DIASTOLIC (CONGESTIVE) HEART FAILURE Assessment/Plan Acute on Chronic Hypoxic Respiratory Failure Acute on Chronic Diastolic Heart Failure ESRD on HD Pulmonary HTN Acute Bronchitis/URI r/o Pneumonia HTN DM COPD - HD per renal with ultrafiltration - daily weights - O2 to keep Spo2 >90% - agree with empiric antibiotics for now - medrol x 24-48hrs - inhaled bronchodilators - DVT prophylaxis Thank you for this consult Antonino Nayak MD
[2019-10-07] MEDS ORDERED: ALBUTEROL SO4 0.083% IH SOL 2.5 MG/3 ML VIAL.NEB. NEB PRN (12:38)
[2019-10-07] MEDS: ALBUTEROL SO4 2.5/IPRATROPIUM 0.5 INH SOL 3 ML VIAL.NEB. NEB SCH ×2 (14:45→20:15)
--- NOTE | 2019-10-07 15:50 | CONSULT ---
Consult - text type - Consultation Consultation Note: Renal consult for ESRD on HD This is a 73 year old woman with history of ESRD on HD (TTS), diastolic HF, COPD who presented with cough and fever and admitted for URI +/- volume overload. She is currently on dialysis and doing well. She reports feeling better. She denies any chest pain, abdominal pain, nausea, vomiting or diarrhea. Denies any leg swelling. Last dialysis was Sunday. PMhx: as above Allergies: NKDA Family Hx: NC Social Hx: No T/A/D ROS:As per HPI Home Medications Medication Instructions Recorded Losartan Potassium 100 mg PO DAILY 01/08/17 Labetalol HCl [Normodyne -] 200 mg PO TID #90 tablet 10/25/17 Minoxidil [Loniten -] 10 mg PO HS #30 tablet 10/25/17 Nifedipine [Nifedipine ER] 60 mg PO BID 02/11/18 Calcium Acetate [Phoslo -] 667 mg PO TID 03/09/18 Docusate Sodium 100 mg PO HS 03/09/18 Gabapentin 100 mg PO HS 03/09/18 Insulin (Levemir) [Levemir Vial] 8 unit SQ AM 03/09/18 Insulin (Levemir) [Levemir Vial] 10 unit SQ HS 03/09/18 Oxycodone HCl/Acetaminophen 2 tab PO Q6H PRN MDD 4 tabs 03/09/18 [Percocet 5-325 mg Tablet] Pravastatin Sodium [Pravachol -] 20 mg PO HS 03/09/18 Ascorbic Acid [Vitamin C -] 500 mg PO DAILY tablet 04/24/18 Aspirin [ASA -] 81 mg PO DAILY tab.chew 04/24/18 Bacitracin - [Bacitracin Topical 1 applic TP DAILY #1 tube 04/24/18 Ointment -] Ferrous Sulfate [Feosol] 325 mg PO TIDCM ud 04/24/18 levoFLOXacin [Levaquin -] 250 mg PO Q48H #20 tablet 04/24/18 Clopidogrel Bisulfate [Plavix -] 75 mg PO DAILY 08/13/18 Docusate Sodium [Colace] 200 mg PO DAILY 08/13/18 Ferric Citrate [Auryxia] 2 tab PO TID 08/13/18 Gabapentin [Neurontin -] 100 mg PO BID 08/13/18 Glipizide [Glipizide ER] 5 mg PO DAILY 08/13/18 Insulin Detemir [Levemir Flextouch] 8 unit SQ DAILY 08/13/18 Labetalol HCl [Normodyne -] 200 mg PO TID 08/13/18 Lanthanum Carbonate [Fosrenol] 1,000 mg PO QID 08/13/18 Losartan Potassium 100 mg PO DAILY 08/13/18 Minoxidil [Loniten -] 10 mg PO HS 08/13/18 Nifedipine [Afeditab Cr] 30 mg PO BID 08/13/18 Nystatin Cream [Mycostatin] 1 applic TP BID 08/13/18 Oxycodone HCl/Acetaminophen 1 tab PO Q6H PRN 08/13/18 [Percocet 5-325 mg Tablet] Pantoprazole Sodium 40 mg PO DAILY 08/13/18 Pravastatin Sodium [Pravachol] 20 mg PO HS 08/13/18 Clindamycin [Cleocin -] 900 mg PO TID #90 capsule 11/07/18 Vital Signs Temperature 99 F 10/07/19 11:25 Pulse Rate 72 10/07/19 15:30 Respiratory Rate 18 10/07/19 15:30 Blood Pressure 160/75 10/07/19 15:30 O2 Sat by Pulse Oximetry (%) 93 L 10/07/19 11:21 Intake & Output 10/04/19 10/05/19 10/06/19 10/07/19 23:59 23:59 23:59 23:59 Intake Total 200 Balance 200 Weight 61.235 kg NAD awake and alert neck supple, no JVD RRR, no M/R Dec BS, no wheeze soft NT/ND no LE edema CBC, BMP 10/07/19 06:27 10/07/19 06:27 Current Medications Albuterol Sulfate (Ventolin 0.083% Nebulizer Soln -) 1 amp NEB RQ4H PRN PRN Reason: SHORT OF BREATH/WHEEZING Albuterol/Ipratropium (Duoneb -) 1 amp NEB RTID [facility] Last Admin: 10/07/19 14:45 Dose: Not Given Aspirin (Asa -) 81 mg PO DAILY [facility] Last Admin: 10/07/19 09:44 Dose: 81 mg Atorvastatin Calcium (Lipitor -) 10 mg PO HS [facility] Clopidogrel Bisulfate (Plavix -) 75 mg PO DAILY [facility] Last Admin: 10/07/19 09:44 Dose: 75 mg Docusate Sodium (Colace -) 100 mg PO HS [facility] Gabapentin (Neurontin -) 100 mg PO BID [facility] Last Admin: 10/07/19 09:44 Dose: 100 mg Heparin Sodium (Porcine) (Heparin -) 5,000 unit SQ TID [facility] Last Admin: 10/07/19 05:21 Dose: 5,000 unit Azithromycin (Zithromax 500mg Ivpb (Pre-Docked)) 500 mg in 250 mls @ 250 mls/ hr IVPB DAILY [facility] Last Admin: 10/07/19 10:42 Dose: 250 mls/hr Ceftriaxone Sodium 1 gm/ (Dextrose) 50 mls @ 100 mls/hr IVPB DAILY [facility] Last Admin: 10/07/19 09:44 Dose: 100 mls/hr Sodium Chloride (Normal Saline -) 250 mls @ 3,000 mls/hr IV PRN PRN PRN Reason: Hypotension during Dialysis Stop: 10/08/19 10:16 Sodium Chloride (Normal Saline -) 250 mls @ 3,000 mls/hr IV PRN PRN PRN Reason: Hypotension during Dialysis Stop: 10/08/19 12:07 Insulin Aspart (Novolog Vial Sliding Scale -) 1 vial SQ [facility]; Protocol Last Admin: 10/07/19 11:43 Dose: Not Given Insulin Detemir (Levemir Vial) 10 units SQ HS [facility] Labetalol HCl (Normodyne -) 200 mg PO TID [facility] Last Admin: 10/07/19 06:33 Dose: 200 mg Methylprednisolone Sodium Succinate (Solu-Medrol -) 40 mg IVPUSH Q8H-IV [facility] Stop: 10/09/19 10:01 Nifedipine (Procardia Xl -) 60 mg PO DAILY [facility] Last Admin: 10/07/19 09:44 Dose: 60 mg Pantoprazole Sodium (Protonix -) 40 mg PO DAILY [facility] Last Admin: 10/07/19 10:42 Dose: 40 mg 73 year old woman with history of ESRD on HD (TTS), diastolic HF, COPD who presented with cough and fever and admitted for URI +/- volume overload. 1. ESRD on HD 2. Hyperkalemia 3. Hyponatremia 4. URI/Fever 5. Mild pulmonary congestion 6. Anemia Currently getting dialysis, tolerating it well. UF goal is 2.5-3L. Renal diet and 1.2L fluid restriction. Continue empiric antibiotics as steroids Will give CLIFTON with HD for anemia Thank you Alf Mcmahan DO
--- NOTE | 2019-10-07 17:12 | PN ---
Physical Exam: SUBJECTIVE: Patient seen and examined, lethargic, states her name but appears weak. now with a fever of 101.6f (oral) OBJECTIVE: has been cultured may need broad spectrum id consulted-discussed with ID. give iv tylenol now Patient is a 73 year old female with a significant past medical history of ESRD- via left av fistula, diabetes, hypertension, diastolic CHF, and COPD (on home oxygen) who comes in with c/o of 2 days of sore throat/cough and malaise. She endorses subjective fevers at home with chills. In the ED she was placed on bipap for acute hypoxic respiratory failure (desaurated to the 70s in the ED) and being ruled out for pneumonia. She received dialysis today. Vital Signs Period Temp Pulse Resp BP Sys/Parker Pulse Ox Last 24 Hr 98 F-100.4 F 70-91 17-35 132-207/47-90 91-100 GENERAL: The patient is lethargic HEAD: Normal with no signs of trauma. EYES: PERRL, extraocular movements intact, sclera anicteric, conjunctiva clear. No ptosis. ENT: Ears normal, nares patent, oropharynx clear without exudates, moist mucous membranes. NECK: Trachea midline, full range of motion, supple. LUNGS: Breath sounds diminished, appears congested HEART: Regular rate and rhythm ABDOMEN: Soft, nontender, nondistended, normoactive bowel sounds, no guarding, no rebound, no hepatosplenomegaly, no masses. NEUROLOGICAL: lethargic Laboratory Results - last 24 hr 10/06/19 10/06/19 10/06/19 21:37 21:37 22:05 WBC 17.1 H RBC 3.83 Hgb 9.7 L Hct 31.0 L MCV 80.8 MCH 25.4 L MCHC 31.5 L RDW 18.8 H Plt Count 125 L MPV 10.3 D Absolute Neuts (auto) 15.4 H Neutrophils % 89.9 H Lymphocytes % 3.0 L D Monocytes % 6.4 Eosinophils % 0.0 D Basophils % 0.7 Nucleated RBC % 0 Anticoagulation Therapy Puncture Site ABG pH ABG pCO2 at Pt Temp ABG pO2 at Pt Temp ABG HCO3 ABG O2 Sat (Measured) ABG O2 Content ABG Base Excess Hieu Test VBG pH POC VBG pCO2 POC VBG pO2 VBG HCO3 VBG O2 Sat (Armani) VBG Base Excess Carboxyhemoglobin Methemoglobin O2 Delivery Device Oxygen Flow Rate Vent Mode Vent Rate Mechanical Rate Pressure Support Vent Sodium Potassium Chloride Carbon Dioxide Anion Gap BUN Creatinine Est GFR (CKD-EPI)AfAm Est GFR (CKD-EPI)NonAf POC Glucometer Random Glucose Hemoglobin A1c % Lactic Acid Calcium Phosphorus Magnesium Total Bilirubin AST ALT Alkaline Phosphatase Troponin I B-Natriuretic Peptide Total Protein Albumin Influenza A (Rapid) Negative Influenza B (Rapid) Negative Group A Strep Rapid Negative 10/06/19 10/06/19 10/06/19 22:05 22:05 22:05 WBC RBC Hgb Hct MCV MCH MCHC RDW Plt Count MPV Absolute Neuts (auto) Neutrophils % Lymphocytes % Monocytes % Eosinophils % Basophils % Nucleated RBC % Anticoagulation Therapy Puncture Site ABG pH ABG pCO2 at Pt Temp ABG pO2 at Pt Temp ABG HCO3 ABG O2 Sat (Measured) ABG O2 Content ABG Base Excess Hieu Test VBG pH 7.35 POC VBG pCO2 48.4 POC VBG pO2 53.6 H VBG HCO3 26.2 VBG O2 Sat (Armani) 85.4 H VBG Base Excess 0.9 Carboxyhemoglobin Methemoglobin O2 Delivery Device Oxygen Flow Rate Vent Mode Vent Rate Mechanical Rate Pressure Support Vent Sodium 133 L Potassium 5.5 H Chloride 95 L Carbon Dioxide 26 Anion Gap 12 BUN 57.1 H Creatinine 7.3 H Est GFR (CKD-EPI)AfAm 5.85 Est GFR (CKD-EPI)NonAf 5.05 POC Glucometer Random Glucose 305 H Hemoglobin A1c % Lactic Acid Calcium 8.7 Phosphorus Magnesium Total Bilirubin 0.7 AST 18 ALT 19 Alkaline Phosphatase 189 H Troponin I 0.04 B-Natriuretic Peptide Total Protein 8.1 Albumin 4.1 Influenza A (Rapid) Influenza B (Rapid) Group A Strep Rapid 10/06/19 10/06/19 10/07/19 22:05 22:05 01:37 WBC RBC Hgb Hct MCV MCH MCHC RDW Plt Count MPV Absolute Neuts (auto) Neutrophils % Lymphocytes % Monocytes % Eosinophils % Basophils % Nucleated RBC % Anticoagulation Therapy Puncture Site ABG pH ABG pCO2 at Pt Temp ABG pO2 at Pt Temp ABG HCO3 ABG O2 Sat (Measured) ABG O2 Content ABG Base Excess Hieu Test VBG pH POC VBG pCO2 POC VBG pO2 VBG HCO3 VBG O2 Sat (Armani) VBG Base Excess Carboxyhemoglobin Methemoglobin O2 Delivery Device Oxygen Flow Rate Vent Mode Vent Rate Mechanical Rate Pressure Support Vent Sodium Potassium Chloride Carbon Dioxide Anion Gap BUN Creatinine Est GFR (CKD-EPI)AfAm Est GFR (CKD-EPI)NonAf POC Glucometer Random Glucose Hemoglobin A1c % Lactic Acid 1.1 1.1 Calcium Phosphorus Magnesium Total Bilirubin AST ALT Alkaline Phosphatase Troponin I B-Natriuretic Peptide > 07168.0 H Total Protein Albumin Influenza A (Rapid) Influenza B (Rapid) Group A Strep Rapid 10/07/19 10/07/19 10/07/19 02:40 06:18 06:27 WBC 17.1 H RBC 3.77 Hgb 9.7 L Hct 30.3 L MCV 80.3 MCH 25.6 L MCHC 31.9 L RDW 18.4 H Plt Count 129 L MPV 10.4 Absolute Neuts (auto) Neutrophils % Lymphocytes % Monocytes % Eosinophils % Basophils % Nucleated RBC % Anticoagulation Therapy No Result Required. No Result Required. Puncture Site Right radial Right radial ABG pH 7.35 7.38 ABG pCO2 at Pt Temp 45 40.4 ABG pO2 at Pt Temp < 49 L* 78.8 L ABG HCO3 25.7 23.5 ABG O2 Sat (Measured) 76 L 95.4 ABG O2 Content No Result Required. 13.0 ABG Base Excess 0.9 -0.9 Hieu Test Positive Positive VBG pH POC VBG pCO2 POC VBG pO2 VBG HCO3 VBG O2 Sat (Armani) VBG Base Excess Carboxyhemoglobin 1.6 Methemoglobin 1.4 O2 Delivery Device No Result Required. No Result Required. Oxygen Flow Rate No 40% Vent Mode No Result Required. No Result Required. Vent Rate No Result Required. No Result Required. Mechanical Rate No Result Required. No Result Required. Pressure Support Vent No Result Required. No Result Required. Sodium Potassium Chloride Carbon Dioxide Anion Gap BUN Creatinine Est GFR (CKD-EPI)AfAm Est GFR (CKD-EPI)NonAf POC Glucometer Random Glucose Hemoglobin A1c % Lactic Acid Calcium Phosphorus Magnesium Total Bilirubin AST ALT Alkaline Phosphatase Troponin I B-Natriuretic Peptide Total Protein Albumin Influenza A (Rapid) Influenza B (Rapid) Group A Strep Rapid 10/07/19 10/07/19 10/07/19 06:27 06:27 06:27 WBC RBC Hgb Hct MCV MCH MCHC RDW Plt Count MPV Absolute Neuts (auto) Neutrophils % Lymphocytes % Monocytes % Eosinophils % Basophils % Nucleated RBC % Anticoagulation Therapy Puncture Site ABG pH ABG pCO2 at Pt Temp ABG pO2 at Pt Temp ABG HCO3 ABG O2 Sat (Measured) ABG O2 Content ABG Base Excess Hieu Test VBG pH POC VBG pCO2 POC VBG pO2 VBG HCO3 VBG O2 Sat (Armani) VBG Base Excess Carboxyhemoglobin Methemoglobin O2 Delivery Device Oxygen Flow Rate Vent Mode Vent Rate Mechanical Rate Pressure Support Vent Sodium 132 L Potassium 5.3 H Chloride 96 L Carbon Dioxide 24 Anion Gap 12 BUN 60.8 H Creatinine 7.9 H* Est GFR (CKD-EPI)AfAm 5.32 Est GFR (CKD-EPI)NonAf 4.59 POC Glucometer 257 Random Glucose 277 H Hemoglobin A1c % 9.4 H Lactic Acid Calcium 8.5 Phosphorus 3.1 Magnesium 2.5 H Total Bilirubin AST ALT Alkaline Phosphatase Troponin I B-Natriuretic Peptide Total Protein Albumin Influenza A (Rapid) Influenza B (Rapid) Group A Strep Rapid Active Medications Generic Name Dose Route Start Last Admin Trade Name Freq PRN Reason Stop Dose Admin Albuterol Sulfate 1 amp 10/07/19 12:38 Ventolin 0.083% Nebulizer Soln - NEB RQ4H PRN SHORT OF BREATH/WHEEZING Albuterol/Ipratropium 1 amp 10/07/19 14:00 10/07/19 14:45 Duoneb - NEB Not Given RTID KARINA Aspirin 81 mg 10/07/19 10:00 10/07/19 09:44 Asa - PO 81 mg DAILY KARINA Administration Atorvastatin Calcium 10 mg 10/07/19 22:00 Lipitor - PO HS KARINA Clopidogrel Bisulfate 75 mg 10/07/19 10:00 10/07/19 09:44 Plavix - PO 75 mg DAILY K[facility]INA Administration Docusate Sodium 100 mg 10/07/19 22:00 Colace - PO HS KARINA Gabapentin 100 mg 10/07/19 10:00 10/07/19 09:44 Neurontin - PO 100 mg BID [facility] Administration Heparin Sodium (Porcine) 5,000 unit 10/07/19 06:00 10/07/19 05:21 Heparin - SQ 5,000 unit TID [facility] Administration Azithromycin 500 mg in 250 mls @ 250 mls/hr 10/07/19 10:00 10/07/19 10:42 Zithromax 500mg Ivpb (Pre-Docked) IVPB 250 mls/hr DAILY [facility] Administration Ceftriaxone Sodium 1 gm/ 50 mls @ 100 mls/hr 10/07/19 10:00 10/07/19 09:44 Dextrose IVPB 100 mls/hr DAILY [facility] Administration Sodium Chloride 250 mls @ 3,000 mls/hr 10/07/19 10:16 Normal Saline - IV 10/08/19 10:16 PRN PRN Hypotension during Dialysis Sodium Chloride 250 mls @ 3,000 mls/hr 10/07/19 12:08 Normal Saline - IV 10/08/19 12:07 PRN PRN Hypotension during Dialysis Insulin Aspart 1 vial 10/07/19 07:00 10/07/19 11:43 Novolog Vial Sliding Scale - SQ Not Given ACHS [facility] Protocol Insulin Detemir 10 units 10/07/19 22:00 Levemir Vial SQ HS [facility] Labetalol HCl 200 mg 10/07/19 06:00 10/07/19 06:33 Normodyne - PO 200 mg TID [facility] Administration Methylprednisolone Sodium Succinate 40 mg 10/07/19 18:00 Solu-Medrol - IVPUSH 10/09/19 10:01 Q8H-IV [facility] Nifedipine 60 mg 10/07/19 10:00 10/07/19 09:44 Procardia Xl - PO 60 mg DAILY [facility] Administration Pantoprazole Sodium 40 mg 10/07/19 10:00 10/07/19 10:42 Protonix - PO 40 mg DAILY [facility] Administration ASSESSMENT/PLAN: sepsis rule out pneumonia, now with high grade fevers s/p dialysis on ceftriaxone/azithromycin id consulted and case discussed respiratory failure rule out pna on bipap for respiratory failure on 2 liters nasal cannula with alternate to bipap urine legionella antigen pending infiltrates on xray Diabetes novolog, monitor bgms ESRD dialysis today Renal diet and 1.2L fluid restriction. Problem List - Problems (1) Hypoxia Code(s): R09.02 - HYPOXEMIA (2) Pneumonia Code(s): J18.9 - PNEUMONIA, UNSPECIFIED ORGANISM Qualifiers: Pneumonia type: due to unspecified organism Laterality: left Lung location: lower lobe of lung Qualified Code(s): J18.9 - Pneumonia, unspecified organism (3) ESRD (end stage renal disease) on dialysis Code(s): N18.6 - END STAGE RENAL DISEASE; Z99.2 - DEPENDENCE ON RENAL DIALYSIS (4) AV fistula Code(s): I77.0 - ARTERIOVENOUS FISTULA, ACQUIRED (5) Sepsis Code(s): A41.9 - SEPSIS, UNSPECIFIED ORGANISM (6) Anemia Code(s): D64.9 - ANEMIA, UNSPECIFIED Visit type - Emergency Visit Emergency Visit: Yes ED Registration Date: 10/06/19 Care time: The patient presented to the Emergency Department on the above date and was hospitalized for further evaluation of their emergent condition. - New Patient This patient is new to me today: Yes Date on this admission: 10/07/19 - Critical Care Critical Care patient: No - Discharge Referral Referred to [facility] No
[2019-10-07] MEDS: methylPREDNISolone NA SUCC 40 MG/1 ML VIAL IVPUSH SCH (17:21)
[2019-10-07] MEDS ORDERED: INSULIN SLIDING SCALE (NOVOLOG) 1 VIAL SQ ONE (17:22)
[2019-10-07] MEDS ORDERED: ACETAMINOPHEN 1000 MG/100 ML VIAL (NON FORMULARY) IVPB PRN (17:24)
[2019-10-07] MEDS ORDERED: PRAVASTATIN SODIUM 20 MG PO SCH (22:00)
[2019-10-07] MEDS ORDERED: INSULIN (LEVEMIR) 100 UNITS/ML UNITS SQ SCH ×2 (22:00)
[2019-10-07] MEDS: ATORVASTATIN CA 10 MG TABLET (FP) PO SCH (22:03)
[2019-10-07] MEDS: DOCUSATE SODIUM 100 MG CAPSULE (FP) PO SCH (22:03)
[2019-10-08] MEDS: HEPARIN NA (PORCINE) 5,000 UNITS/ML 1ML VIAL SQ SCH ×4 (00:03→21:49)
[2019-10-08] MEDS: methylPREDNISolone NA SUCC 40 MG/1 ML VIAL IVPUSH SCH ×3 (01:21→18:37)
[2019-10-08] MEDS: LABETALOL HCL 200 MG TABLET (FP) PO SCH ×3 (06:05→21:49)
[2019-10-08] MEDS: INSULIN SLIDING SCALE (NOVOLOG) 1 VIAL SQ SCH ×4 (06:07→21:50)
[2019-10-08] MEDS: ALBUTEROL SO4 2.5/IPRATROPIUM 0.5 INH SOL 3 ML VIAL.NEB. NEB SCH ×3 (08:07→21:00)
--- NOTE | 2019-10-08 08:18 | PN ---
Progress Note, Physician Chief Complaint: Examined sitting in chair. Speaks primarily Kyrgyz. c/o productive cough but states she feels better today History of Present Illness: Patient is a 73 year old female with a significant past medical history of ESRD- via left av fistula, diabetes, hypertension, diastolic CHF, and COPD (on home oxygen) who comes in with c/o of 2 days of sore throat/cough and malaise. She endorses subjective fevers at home with chills. In the ED she was placed on bipap for acute hypoxic respiratory failure (desaurated to the 70s in the ED) and being ruled out for pneumonia. She received dialysis today. - Current Medication List Current Medications: Active Medications Acetaminophen (Ofirmev Injection -) 1,000 mg IVPB Q6H PRN PRN Reason: FEVER Albuterol Sulfate (Ventolin 0.083% Nebulizer Soln -) 1 amp NEB RQ4H PRN PRN Reason: SHORT OF BREATH/WHEEZING Albuterol/Ipratropium (Duoneb -) 1 amp NEB RTID [facility] Last Admin: 10/08/19 08:07 Dose: 1 amp Aspirin (Asa -) 81 mg PO DAILY [facility] Last Admin: 10/07/19 09:44 Dose: 81 mg Atorvastatin Calcium (Lipitor -) 10 mg PO HS [facility] Last Admin: 10/07/19 22:03 Dose: Not Given Clopidogrel Bisulfate (Plavix -) 75 mg PO DAILY [facility] Last Admin: 10/07/19 09:44 Dose: 75 mg Docusate Sodium (Colace -) 100 mg PO HS [facility] Last Admin: 10/07/19 22:03 Dose: Not Given Gabapentin (Neurontin -) 100 mg PO BID [facility] Last Admin: 10/07/19 22:03 Dose: Not Given Heparin Sodium (Porcine) (Heparin -) 5,000 unit SQ TID [facility] Last Admin: 10/08/19 06:05 Dose: 5,000 unit Azithromycin (Zithromax 500mg Ivpb (Pre-Docked)) 500 mg in 250 mls @ 250 mls/ hr IVPB DAILY [facility] Last Admin: 10/07/19 10:42 Dose: 250 mls/hr Ceftriaxone Sodium 1 gm/ (Dextrose) 50 mls @ 100 mls/hr IVPB DAILY [facility] Last Admin: 10/07/19 09:44 Dose: 100 mls/hr Sodium Chloride (Normal Saline -) 250 mls @ 3,000 mls/hr IV PRN PRN PRN Reason: Hypotension during Dialysis Stop: 10/08/19 10:16 Sodium Chloride (Normal Saline -) 250 mls @ 3,000 mls/hr IV PRN PRN PRN Reason: Hypotension during Dialysis Stop: 10/08/19 12:07 Insulin Aspart (Novolog Vial Sliding Scale -) 1 vial SQ ACHS [facility]; Protocol Last Admin: 10/08/19 06:07 Dose: 10 unit Insulin Detemir (Levemir Vial) 10 units SQ HS [facility] Last Admin: 10/07/19 21:45 Dose: 10 units Labetalol HCl (Normodyne -) 200 mg PO TID [facility] Last Admin: 10/08/19 06:05 Dose: 200 mg Methylprednisolone Sodium Succinate (Solu-Medrol -) 40 mg IVPUSH Q8H-IV [facility] Stop: 10/09/19 10:01 Last Admin: 10/08/19 01:21 Dose: 40 mg Nifedipine (Procardia Xl -) 60 mg PO DAILY [facility] Last Admin: 10/07/19 09:44 Dose: 60 mg Pantoprazole Sodium (Protonix -) 40 mg PO DAILY [facility] Last Admin: 10/07/19 10:42 Dose: 40 mg - Objective Vital Signs: Vital Signs Temperature 97.6 F 10/08/19 06:00 Pulse Rate 78 10/08/19 06:00 Respiratory Rate 22 H 10/08/19 06:00 Blood Pressure 163/70 10/08/19 06:00 O2 Sat by Pulse Oximetry (%) 97 10/08/19 08:07 Constitutional: Yes: Well Nourished, No Distress, Calm Eyes: Yes: WNL, Conjunctiva Clear HENT: Yes: WNL, Atraumatic, Normocephalic Neck: Yes: WNL, Supple, Trachea Midline Cardiovascular: Yes: WNL, Regular Rate and Rhythm Respiratory: Yes: Diminished (at bases) Gastrointestinal: Yes: WNL, Normal Bowel Sounds ...Rectal Exam: Yes: Deferred Genitourinary: Yes: Anuria (makes some urine), Incontinence Breast(s): Yes: WNL Musculoskeletal: Yes: WNL Extremities: Yes: Other (R AVF noted, +bruit/thrill) Edema: No Peripheral Pulses WNL: Yes Peripheral Pulses: Left Radial: 2+, Right Radial: 2+, Left Doralis Pedis: 2+, Right Dorsalis Pedis: 2+, Left Femoral: 2+, Right Femoral: 2+ Integumentary: Yes: WNL Neurological: Yes: WNL, Alert, Oriented ...Motor Strength: WNL Psychiatric: Yes: WNL Labs: CBC, BMP 10/07/19 06:27 10/07/19 06:27 Problem List - Problems (1) Prophylactic measure Assessment/Plan: FEN HD as per schedule monitor electrolytes daily weights no additional IVF diabetic/renal diet DVT heparin sq Disapo maintain on tele full code discharge planning Code(s): Z29.9 - ENCOUNTER FOR PROPHYLACTIC MEASURES, UNSPECIFIED (2) Hypoxia Assessment/Plan: supplemental O2 to keep Spo2 >90% c/w antibiotic solumedrol for additional 24-48hrs c/w inhaled bronchodilators BiPap prn Code(s): R09.02 - HYPOXEMIA (3) Pneumonia Assessment/Plan: CXR with prominent hilar markings appreciate pulmonary consultation c/w azithromycin if does not continue to improve clinically will do CR chest-no contrast tomorrow Code(s): J18.9 - PNEUMONIA, UNSPECIFIED ORGANISM Qualifiers: Pneumonia type: due to unspecified organism Laterality: left Lung location: lower lobe of lung Qualified Code(s): J18.9 - Pneumonia, unspecified organism (4) ESRD (end stage renal disease) on dialysis Assessment/Plan: c/w HD as per schedule 3L removed last session Code(s): N18.6 - END STAGE RENAL DISEASE; Z99.2 - DEPENDENCE ON RENAL DIALYSIS (5) AV fistula Code(s): I77.0 - ARTERIOVENOUS FISTULA, ACQUIRED Visit type - Emergency Visit Emergency Visit: Yes ED Registration Date: 10/06/19 Care time: The patient presented to the Emergency Department on the above date and was hospitalized for further evaluation of their emergent condition. - New Patient This patient is new to me today: Yes Date on this admission: 10/08/19 - Critical Care Critical Care patient: No - Discharge Referral Referred to [facility] No
[2019-10-08] MEDS ORDERED: DEXTROSE 5%-WATER - 50 ML IVPB ONE (09:06)
[2019-10-08] MEDS ORDERED: cefTRIAXone SODIUM 1 GM VIAL ONE (09:06)
[2019-10-08] MEDS: ASPIRIN 81 MG CHEWABLE TABLETS PO SCH (09:51)
[2019-10-08] MEDS: GABAPENTIN 100 MG CAPSULE (FP) PO SCH ×2 (09:52→21:49)
[2019-10-08] MEDS: CEFTRIAXONE 1 GM in DEXTROSE 5%-WATER - 50 ML IVPB SCH (09:52)
[2019-10-08] MEDS: NIFEdipine E.R 60 MG TABLET (UD) PO SCH (09:52)
[2019-10-08] MEDS: PANTOPRAZOLE 40 MG TABLET (FP) PO SCH (09:52)
[2019-10-08] MEDS: CLOPIDOGREL BISULFATE 75 MG TABLET (FP) PO SCH (09:52)
[2019-10-08] MEDS: AZITHROMYCIN IVPB 500 MG/250 ML BAG IVPB SCH (09:53)
[2019-10-08 10:48] LABS: BASO % 0.1 % (0-2.0); HEMATOCRIT 30.5 % (32.4-45.2); HEMOGLOBIN 9.6 GM/dL (10.7-15.3); LYMPH % 3.5 % (8-40); MCH 25.5 pg (25.7-33.7); MCHC 31.6 g/dl (32.0-36.0); MEAN CELL VOLUME 80.6 fl (80-96); MEAN PLT VOLUME 10.2 fl (7.5-11.1); MONO % 2.7 % (3.8-10.2); NEUT % 93.7 % (42.8-82.8); PLATELET COUNT 174 K/MM3 (134-434); RBC 3.79 M/mm3 (3.60-5.2); RDW 18.9 % (11.6-15.6); WHITE BLOOD COUNT 13.9 K/mm3 (4.0-10.0)
[2019-10-08 11:17] LABS: ANISOCYTOSIS 2+; MACROCYTOSIS 0; PLATELET ESTIMATE NORMAL; TARGET CELLS 1+
[2019-10-08 11:19] LABS: ALBUMIN 3.6 g/dl (3.4-5.0); BILIRUBIN,TOTAL 0.7 mg/dL (0.2-1); BLOOD UREA NITROGEN 44.8 mg/dL (7-18); CALCIUM 9.3 mg/dL (8.5-10.1); CREATININE 5.3 mg/dL (0.55-1.3); POTASSIUM 4.6 mmol/L (3.5-5.1); TOT PROT 7.9 g/dl (6.4-8.2)
--- NOTE | 2019-10-08 11:41 | PN ---
Progress Note, Physician History of Present Illness: PULMONARY alert,oob-chair,less dyspneic - Current Medication List Current Medications: Active Medications Acetaminophen (Ofirmev Injection -) 1,000 mg IVPB Q6H PRN PRN Reason: FEVER Albuterol Sulfate (Ventolin 0.083% Nebulizer Soln -) 1 amp NEB RQ4H PRN PRN Reason: SHORT OF BREATH/WHEEZING Albuterol/Ipratropium (Duoneb -) 1 amp NEB RTID [facility] Last Admin: 10/08/19 08:07 Dose: 1 amp Aspirin (Asa -) 81 mg PO DAILY [facility] Last Admin: 10/08/19 09:51 Dose: 81 mg Atorvastatin Calcium (Lipitor -) 10 mg PO HS [facility] Last Admin: 10/07/19 22:03 Dose: Not Given Clopidogrel Bisulfate (Plavix -) 75 mg PO DAILY [facility] Last Admin: 10/08/19 09:52 Dose: 75 mg Docusate Sodium (Colace -) 100 mg PO HS [facility] Last Admin: 10/07/19 22:03 Dose: Not Given Gabapentin (Neurontin -) 100 mg PO BID [facility] Last Admin: 10/08/19 09:52 Dose: 100 mg Heparin Sodium (Porcine) (Heparin -) 5,000 unit SQ TID [facility] Last Admin: 10/08/19 06:05 Dose: 5,000 unit Azithromycin (Zithromax 500mg Ivpb (Pre-Docked)) 500 mg in 250 mls @ 250 mls/ hr IVPB DAILY [facility] Last Admin: 10/08/19 09:53 Dose: 250 mls/hr Ceftriaxone Sodium 1 gm/ (Dextrose) 50 mls @ 100 mls/hr IVPB DAILY [facility] Last Admin: 10/08/19 09:52 Dose: 100 mls/hr Sodium Chloride (Normal Saline -) 250 mls @ 3,000 mls/hr IV PRN PRN PRN Reason: Hypotension during Dialysis Stop: 10/08/19 12:07 Insulin Aspart (Novolog Vial Sliding Scale -) 1 vial SQ [facility]; Protocol Last Admin: 10/08/19 06:07 Dose: 10 unit Insulin Detemir (Levemir Vial) 10 units SQ HS [facility] Last Admin: 10/07/19 21:45 Dose: 10 units Labetalol HCl (Normodyne -) 200 mg PO TID [facility] Last Admin: 10/08/19 06:05 Dose: 200 mg Methylprednisolone Sodium Succinate (Solu-Medrol -) 40 mg IVPUSH Q8H-IV [facility] Stop: 10/09/19 10:01 Last Admin: 10/08/19 09:53 Dose: 40 mg Nifedipine (Procardia Xl -) 60 mg PO DAILY [facility] Last Admin: 10/08/19 09:52 Dose: 60 mg Pantoprazole Sodium (Protonix -) 40 mg PO DAILY [facility] Last Admin: 10/08/19 09:52 Dose: 40 mg - Objective Vital Signs: Vital Signs Temperature 98.6 F 10/08/19 09:58 Pulse Rate 75 10/08/19 09:58 Respiratory Rate 18 10/08/19 09:58 Blood Pressure 179/69 H 10/08/19 09:58 O2 Sat by Pulse Oximetry (%) 97 10/08/19 08:07 Constitutional: Yes: Well Nourished, Calm Eyes: Yes: WNL HENT: Yes: WNL Neck: Yes: WNL Cardiovascular: Yes: Regular Rate and Rhythm, S1, S2 Respiratory: Yes: Diminished Gastrointestinal: Yes: Normal Bowel Sounds, Soft Extremities: Yes: WNL Edema: No Labs: CBC, BMP 10/08/19 10:30 10/08/19 10:30 Problem List - Problems (1) Hypoxia Code(s): R09.02 - HYPOXEMIA (2) ESRD (end stage renal disease) on dialysis Code(s): N18.6 - END STAGE RENAL DISEASE; Z99.2 - DEPENDENCE ON RENAL DIALYSIS (3) Acute on chronic diastolic (congestive) heart failure Code(s): I50.33 - ACUTE ON CHRONIC DIASTOLIC (CONGESTIVE) HEART FAILURE (4) Anemia Code(s): D64.9 - ANEMIA, UNSPECIFIED Qualifiers: Anemia type: unspecified type Qualified Code(s): D64.9 - Anemia, unspecified (5) Paroxysmal atrial fibrillation Code(s): I48.0 - PAROXYSMAL ATRIAL FIBRILLATION (6) Shortness of breath Code(s): R06.02 - SHORTNESS OF BREATH (7) Anemia, chronic renal failure Code(s): N18.9 - CHRONIC KIDNEY DISEASE, UNSPECIFIED; D63.1 - ANEMIA IN CHRONIC KIDNEY DISEASE (8) CKD (chronic kidney disease) Code(s): N18.9 - CHRONIC KIDNEY DISEASE, UNSPECIFIED (9) End stage renal disease Code(s): N18.6 - END STAGE RENAL DISEASE (10) Hyperlipidemia Code(s): E78.5 - HYPERLIPIDEMIA, UNSPECIFIED Qualifiers: Hyperlipidemia type: pure hypercholesterolemia Qualified Code(s): E78.00 - Pure hypercholesterolemia, unspecified; E78.0 - Pure hypercholesterolemia (11) Hypertension Code(s): I10 - ESSENTIAL (PRIMARY) HYPERTENSION Qualifiers: Hypertension type: essential hypertension Qualified Code(s): I10 - Essential (primary) hypertension (12) Congestive heart failure Code(s): I50.9 - HEART FAILURE, UNSPECIFIED (13) Acute and chronic respiratory failure with hypoxia Code(s): J96.21 - ACUTE AND CHRONIC RESPIRATORY FAILURE WITH HYPOXIA Assessment/Plan Problem List - Problems (1) Acute on chronic diastolic (congestive) heart failure Code(s): I50.33 - ACUTE ON CHRONIC DIASTOLIC (CONGESTIVE) HEART FAILURE Assessment/Plan Acute on Chronic Hypoxic Respiratory Failure clinically improving Acute on Chronic Diastolic Heart Failure ESRD on HD Pulmonary HTN Acute Bronchitis/URI r/o Pneumonia HTN DM COPD - HD per renal with ultrafiltration - daily weights - O2 to keep Spo2 >90% - empiric antibiotic - medrol x 24-48hrs - inhaled bronchodilators - DVT prophylaxis DR VIVAS
--- NOTE | 2019-10-08 12:29 | CON.ID ---
Consult Consult Specialty:: infectious diseases Referred by:: Yeny Reason for Consultation:: leucocytosis,fever - History of Present Illness Chief Complaint: sob History of Present Illness: 73 y/o female PMH IDDM, HTN, ESRD , diastolic CHF, and COPD (on home oxygen) with sore throat and cough. She states that her symptoms started suddenly with sore throat, which progressed to a cough productive of yellow tinged plegm. She says coughing fits are associated with pain in her upper back that is worsened when she coughs. She endorses nausea, fever (not recorded), and chills but has not vomited. She took tylenol and Robitussun with some relief. She received her flu and PNA shot this year. She denies sick contacts and recent travel. She denies numbness,tingling, and vision changes. She denies urinary symptoms, SOB, and CP. 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) Cardio/Vascular: Yes: CHF (chronic diastolic), HTN, Hyperlipdemia Renal/: Yes: Renal Failure, Hemodialysis Musculoskeletal: Yes: Chronic low back pain Endocrine: Yes: Diabetes Mellitus - Past Surgical History Past Surgical History: Yes: AV Fistula/Graft - Alcohol/Substance Use Hx Alcohol Use: No History of Substance Use: reports: None - Smoking History Smoking history: Former smoker Have you smoked in the past 12 months: No Aproximately how many cigarettes per day: 0 - Social History ADL: Independent History of Recent Travel: No Home Medications - Allergies Allergies/Adverse Reactions: Allergies Allergy/AdvReac Type Severity Reaction Status Date / Time No Known Allergies Allergy Verified 11/07/18 14:58 - Home Medications Home Medications: Ambulatory Orders Losartan Potassium 100 mg PO DAILY 01/08/17 Labetalol HCl [Normodyne -] 200 mg PO TID #90 tablet 10/25/17 Minoxidil [Loniten -] 10 mg PO HS #30 tablet 10/25/17 Nifedipine [Nifedipine ER] 60 mg PO BID 02/11/18 Calcium Acetate [Phoslo -] 667 mg PO TID 03/09/18 Docusate Sodium 100 mg PO HS 03/09/18 Gabapentin 100 mg PO HS 03/09/18 Insulin (Levemir) [Levemir Vial] 8 unit SQ AM 03/09/18 Insulin (Levemir) [Levemir Vial] 10 unit SQ HS 03/09/18 Oxycodone HCl/Acetaminophen [Percocet 5-325 mg Tablet] 2 tab PO Q6H PRN MDD 4 tabs 03/09/18 Pravastatin Sodium [Pravachol -] 20 mg PO HS 03/09/18 Ascorbic Acid [Vitamin C -] 500 mg PO DAILY tablet 04/24/18 Aspirin [ASA -] 81 mg PO DAILY tab.chew 04/24/18 Bacitracin - [Bacitracin Topical Ointment -] 1 applic TP DAILY #1 tube 04/24/18 Ferrous Sulfate [Feosol] 325 mg PO TIDCM ud 04/24/18 levoFLOXacin [Levaquin -] 250 mg PO Q48H #20 tablet 04/24/18 Clopidogrel Bisulfate [Plavix -] 75 mg PO DAILY 08/13/18 Docusate Sodium [Colace] 200 mg PO DAILY 08/13/18 Ferric Citrate [Auryxia] 2 tab PO TID 08/13/18 Gabapentin [Neurontin -] 100 mg PO BID 08/13/18 Glipizide [Glipizide ER] 5 mg PO DAILY 08/13/18 Insulin Detemir [Levemir Flextouch] 8 unit SQ DAILY 08/13/18 Labetalol HCl [Normodyne -] 200 mg PO TID 08/13/18 Lanthanum Carbonate [Fosrenol] 1,000 mg PO QID 08/13/18 Losartan Potassium 100 mg PO DAILY 08/13/18 Minoxidil [Loniten -] 10 mg PO HS 08/13/18 Nifedipine [Afeditab Cr] 30 mg PO BID 08/13/18 Nystatin Cream [Mycostatin] 1 applic TP BID 08/13/18 Oxycodone HCl/Acetaminophen [Percocet 5-325 mg Tablet] 1 tab PO Q6H PRN Pantoprazole Sodium 40 mg PO DAILY 08/13/18 Pravastatin Sodium [Pravachol] 20 mg PO HS 08/13/18 Clindamycin [Cleocin -] 900 mg PO TID #90 capsule 11/07/18 Review of Systems - Review of Systems Constitutional: reports: Fever, Weakness Eyes: reports: No Symptoms HENT: reports: No Symptoms Neck: reports: No Symptoms Cardiovascular: reports: Shortness of Breath Respiratory: reports: Cough, SOB, SOB on Exertion Gastrointestinal: reports: No Symptoms Genitourinary: reports: No Symptoms Musculoskeletal: reports: No Symptoms Integumentary: reports: No Symptoms Neurological: reports: No Symptoms Endocrine: reports: No Symptoms Hematology/Lymphatic: reports: No Symptoms Psychiatric: reports: No Symptoms Physical Exam Vital Signs: Vital Signs Temperature 98.6 F 10/08/19 09:58 Pulse Rate 75 10/08/19 09:58 Respiratory Rate 18 10/08/19 09:58 Blood Pressure 179/69 H 10/08/19 09:58 O2 Sat by Pulse Oximetry (%) 97 10/08/19 08:07 Constitutional: Yes: Well Nourished, Calm, Mild Distress Cardiovascular: Yes: Regular Rate and Rhythm Respiratory: Yes: On BiPap, Poor Air Entry, Other Gastrointestinal: Yes: Normal Bowel Sounds, Soft Musculoskeletal: Yes: WNL Extremities: Yes: WNL Neurological: Yes: Alert, Oriented Psychiatric: Yes: Alert, Oriented Labs: CBC, BMP 10/08/19 10:30 10/08/19 10:30 Imaging - Results Chest X-ray: Report Reviewed, Image Reviewed Assessment/Plan Problem List - Problems (1) Hypoxia Code(s): R09.02 - HYPOXEMIA (2) ESRD (end stage renal disease) on dialysis Code(s): N18.6 - END STAGE RENAL DISEASE; Z99.2 - DEPENDENCE ON RENAL DIALYSIS (3) Acute on chronic diastolic (congestive) heart failure Code(s): I50.33 - ACUTE ON CHRONIC DIASTOLIC (CONGESTIVE) HEART FAILURE (4) Anemia Code(s): D64.9 - ANEMIA, UNSPECIFIED Qualifiers: Anemia type: unspecified type Qualified Code(s): D64.9 - Anemia, unspecified (5) Paroxysmal atrial fibrillation Code(s): I48.0 - PAROXYSMAL ATRIAL FIBRILLATION (6) Shortness of breath Code(s): R06.02 - SHORTNESS OF BREATH (7) Anemia, chronic renal failure Code(s): N18.9 - CHRONIC KIDNEY DISEASE, UNSPECIFIED; D63.1 - ANEMIA IN CHRONIC KIDNEY DISEASE (8) CKD (chronic kidney disease) Code(s): N18.9 - CHRONIC KIDNEY DISEASE, UNSPECIFIED (9) End stage renal disease Code(s): N18.6 - END STAGE RENAL DISEASE (10) Hyperlipidemia Code(s): E78.5 - HYPERLIPIDEMIA, UNSPECIFIED Qualifiers: Hyperlipidemia type: pure hypercholesterolemia Qualified Code(s): E78.00 - Pure hypercholesterolemia, unspecified; E78.0 - Pure hypercholesterolemia (11) Hypertension Code(s): I10 - ESSENTIAL (PRIMARY) HYPERTENSION Qualifiers: Hypertension type: essential hypertension Qualified Code(s): I10 - Essential (primary) hypertension (12) Congestive heart failure Code(s): I50.9 - HEART FAILURE, UNSPECIFIED (13) Acute and chronic respiratory failure with hypoxia Code(s): J96.21 - ACUTE AND CHRONIC RESPIRATORY FAILURE WITH HYPOXIA Assessment/Plan continue abx consider ct scan close watch monitor fever follow wbc resp support
[2019-10-08] MEDS ORDERED: INSULIN SLIDING SCALE (NOVOLOG) 1 VIAL SQ SCH (12:53)
--- NOTE | 2019-10-08 13:44 | PN ---
Progress Note (short form) - Note Progress Note: Renal follow up for ESRD on HD Seen and examined at the bedside awake and alert still has productive cough does not fell short of breath no fever or chills no chest pain s/p HD yesterday with 3L UF Vital Signs Temperature 98.6 F 10/08/19 09:58 Pulse Rate 75 10/08/19 09:58 Respiratory Rate 18 10/08/19 09:58 Blood Pressure 179/69 H 10/08/19 09:58 O2 Sat by Pulse Oximetry (%) 97 10/08/19 08:07 Intake & Output 10/05/19 10/06/19 10/07/19 10/08/19 23:59 23:59 23:59 23:59 Intake Total 865 730 Output Total 3500 Balance -2635 730 Weight 61.235 kg 64.127 kg 65.227 kg NAD RRR, no M/R Dec BS, no wheeze soft NT/ND no LE edema CBC, BMP 10/08/19 10:30 10/08/19 10:30 Current Medications Acetaminophen (Ofirmev Injection -) 1,000 mg IVPB Q6H PRN PRN Reason: FEVER Albuterol Sulfate (Ventolin 0.083% Nebulizer Soln -) 1 amp NEB RQ4H PRN PRN Reason: SHORT OF BREATH/WHEEZING Albuterol/Ipratropium (Duoneb -) 1 amp NEB RTID [facility] Last Admin: 10/08/19 08:07 Dose: 1 amp Aspirin (Asa -) 81 mg PO DAILY [facility] Last Admin: 10/08/19 09:51 Dose: 81 mg Atorvastatin Calcium (Lipitor -) 10 mg PO HS [facility] Last Admin: 10/07/19 22:03 Dose: Not Given Clopidogrel Bisulfate (Plavix -) 75 mg PO DAILY [facility] Last Admin: 10/08/19 09:52 Dose: 75 mg Docusate Sodium (Colace -) 100 mg PO HS [facility] Last Admin: 10/07/19 22:03 Dose: Not Given Gabapentin (Neurontin -) 100 mg PO BID [facility] Last Admin: 10/08/19 09:52 Dose: 100 mg Heparin Sodium (Porcine) (Heparin -) 5,000 unit SQ TID [facility] Last Admin: 10/08/19 06:05 Dose: 5,000 unit Azithromycin (Zithromax 500mg Ivpb (Pre-Docked)) 500 mg in 250 mls @ 250 mls/ hr IVPB DAILY [facility] Last Admin: 10/08/19 09:53 Dose: 250 mls/hr Ceftriaxone Sodium 1 gm/ (Dextrose) 50 mls @ 100 mls/hr IVPB DAILY [facility] Last Admin: 10/08/19 09:52 Dose: 100 mls/hr Insulin Aspart (Novolog Vial Sliding Scale -) 1 vial SQ ACHS [facility]; Protocol Insulin Detemir (Levemir Vial) 15 units SQ HS [facility] Labetalol HCl (Normodyne -) 200 mg PO TID [facility] Last Admin: 10/08/19 06:05 Dose: 200 mg Methylprednisolone Sodium Succinate (Solu-Medrol -) 40 mg IVPUSH Q8H-IV [facility] Stop: 10/09/19 10:01 Last Admin: 10/08/19 09:53 Dose: 40 mg Nifedipine (Procardia Xl -) 60 mg PO DAILY [facility] Last Admin: 10/08/19 09:52 Dose: 60 mg Pantoprazole Sodium (Protonix -) 40 mg PO DAILY [facility] Last Admin: 10/08/19 09:52 Dose: 40 mg 73 year old woman with history of ESRD on HD (TTS), diastolic HF, COPD who presented with cough and fever and admitted for URI +/- volume overload. 1. ESRD on HD 2. Hyperkalemia 3. Hyponatremia 4. URI/Fever 5. Mild pulmonary congestion 6. Anemia No indication for dialysis today, next treatment tomorrow will continue aggressive fluid removal with dialysis as pt tolerates Renal diet and 1.2L fluid restriction. Continue empiric antibiotics as steroids Will give CLIFTON with HD for anemia Thank you Alf Mcmahan DO
[2019-10-08] MEDS: DOCUSATE SODIUM 100 MG CAPSULE (FP) PO SCH (21:49)
[2019-10-08] MEDS: ATORVASTATIN CA 10 MG TABLET (FP) PO SCH (21:49)
[2019-10-08] MEDS: INSULIN (LEVEMIR) 100 UNITS/ML UNITS SQ SCH (21:50)
[2019-10-09] MEDS: methylPREDNISolone NA SUCC 40 MG/1 ML VIAL IVPUSH SCH ×2 (01:39→12:15)
[2019-10-09] MEDS: LABETALOL HCL 200 MG TABLET (FP) PO SCH ×3 (06:18→23:00)
[2019-10-09] MEDS: HEPARIN NA (PORCINE) 5,000 UNITS/ML 1ML VIAL SQ SCH ×3 (06:18→23:00)
[2019-10-09] MEDS: INSULIN SLIDING SCALE (NOVOLOG) 1 VIAL SQ SCH ×4 (06:19→23:04)
--- NOTE | 2019-10-09 07:20 | PN ---
Progress Note, Physician Chief Complaint: Examined during HD. Speaks primarily Indonesian. States cough is better today History of Present Illness: Patient is a 73 year old female with a significant past medical history of ESRD- via left av fistula, diabetes, hypertension, diastolic CHF, and COPD (on home oxygen) who comes in with c/o of 2 days of sore throat/cough and malaise. She endorses subjective fevers at home with chills. In the ED she was placed on bipap for acute hypoxic respiratory failure (desaurated to the 70s in the ED) and being ruled out for pneumonia. She received dialysis today. - Current Medication List Current Medications: Active Medications Acetaminophen (Ofirmev Injection -) 1,000 mg IVPB Q6H PRN PRN Reason: FEVER Albuterol Sulfate (Ventolin 0.083% Nebulizer Soln -) 1 amp NEB RQ4H PRN PRN Reason: SHORT OF BREATH/WHEEZING Albuterol/Ipratropium (Duoneb -) 1 amp NEB RTID [facility] Last Admin: 10/08/19 21:00 Dose: 1 amp Aspirin (Asa -) 81 mg PO DAILY [facility] Last Admin: 10/08/19 09:51 Dose: 81 mg Atorvastatin Calcium (Lipitor -) 10 mg PO HS [facility] Last Admin: 10/08/19 21:49 Dose: 10 mg Clopidogrel Bisulfate (Plavix -) 75 mg PO DAILY [facility] Last Admin: 10/08/19 09:52 Dose: 75 mg Docusate Sodium (Colace -) 100 mg PO HS [facility] Last Admin: 10/08/19 21:49 Dose: 100 mg Epoetin Arturo (Epogen -) 10,000 unit IVPUSH ONCE ONE Stop: 10/09/19 06:01 Gabapentin (Neurontin -) 100 mg PO BID [facility] Last Admin: 10/08/19 21:49 Dose: 100 mg Heparin Sodium (Porcine) (Heparin -) 5,000 unit SQ TID [facility] Last Admin: 10/09/19 06:18 Dose: 5,000 unit Azithromycin (Zithromax 500mg Ivpb (Pre-Docked)) 500 mg in 250 mls @ 250 mls/ hr IVPB DAILY [facility] Last Admin: 10/08/19 09:53 Dose: 250 mls/hr Ceftriaxone Sodium 1 gm/ (Dextrose) 50 mls @ 100 mls/hr IVPB DAILY [facility] Last Admin: 10/08/19 09:52 Dose: 100 mls/hr Sodium Chloride (Normal Saline -) 250 mls @ 3,000 mls/hr IV PRN PRN PRN Reason: Hypotension during Dialysis Stop: 10/09/19 13:46 Insulin Aspart (Novolog Vial Sliding Scale -) 1 vial SQ ACHS [facility]; Protocol Last Admin: 10/09/19 06:19 Dose: 8 unit Insulin Detemir (Levemir Vial) 15 units SQ HS [facility] Last Admin: 10/08/19 21:50 Dose: 15 units Labetalol HCl (Normodyne -) 200 mg PO TID [facility] Last Admin: 10/09/19 06:18 Dose: 200 mg Methylprednisolone Sodium Succinate (Solu-Medrol -) 40 mg IVPUSH Q8H-IV [facility] Stop: 10/09/19 10:01 Last Admin: 10/09/19 01:39 Dose: 40 mg Nifedipine (Procardia Xl -) 60 mg PO DAILY [facility] Last Admin: 10/08/19 09:52 Dose: 60 mg Pantoprazole Sodium (Protonix -) 40 mg PO DAILY [facility] Last Admin: 10/08/19 09:52 Dose: 40 mg - Objective Vital Signs: Vital Signs Temperature 97.4 F L 10/09/19 01:26 Pulse Rate 69 10/09/19 01:26 Respiratory Rate 18 10/09/19 01:26 Blood Pressure 148/65 10/09/19 01:26 O2 Sat by Pulse Oximetry (%) 96 10/08/19 21:00 Additional Findings/Remarks: Constitutional: Yes: Well Nourished, No Distress, Calm Eyes: Yes: WNL, Conjunctiva Clear HENT: Yes: WNL, Atraumatic, Normocephalic Neck: Yes: WNL, Supple, Trachea Midline Cardiovascular: Yes: WNL, Regular Rate and Rhythm Respiratory: Yes: Diminished (at bases) Gastrointestinal: Yes: WNL, Normal Bowel Sounds ...Rectal Exam: Yes: Deferred Genitourinary: Yes: Anuria (makes some urine), Incontinence Breast(s): Yes: WNL Musculoskeletal: Yes: WNL Extremities: Yes: Other (R AVF noted, +bruit/thrill) Edema: No Peripheral Pulses WNL: Yes Peripheral Pulses: Left Radial: 2+, Right Radial: 2+, Left Doralis Pedis: 2+, Right Dorsalis Pedis: 2+, Left Femoral: 2+, Right Femoral: 2+ Integumentary: Yes: WNL Neurological: Yes: WNL, Alert, Oriented ...Motor Strength: WNL Psychiatric: Yes: WNL Labs: CBC, BMP 10/08/19 10:30 10/08/19 10:30 Problem List - Problems (1) Prophylactic measure Assessment/Plan: FEN HD today monitor electrolytes daily weights no additional IVF diabetic/renal diet DVT heparin sq Disapo maintain on tele full code discharge planning Code(s): Z29.9 - ENCOUNTER FOR PROPHYLACTIC MEASURES, UNSPECIFIED (2) Hypoxia Assessment/Plan: supplemental O2 to keep Spo2 >90% c/w antibiotic solumedrol stopped, monitor off c/w inhaled bronchodilators BiPap prn Code(s): R09.02 - HYPOXEMIA (3) Pneumonia Assessment/Plan: CXR with prominent hilar markings appreciate pulmonary consultation c/w azithromycin clinically improved, no CT chest needed Code(s): J18.9 - PNEUMONIA, UNSPECIFIED ORGANISM Qualifiers: Pneumonia type: due to unspecified organism Laterality: left Lung location: lower lobe of lung Qualified Code(s): J18.9 - Pneumonia, unspecified organism (4) ESRD (end stage renal disease) on dialysis Assessment/Plan: c/w HD as per schedule HD today Code(s): N18.6 - END STAGE RENAL DISEASE; Z99.2 - DEPENDENCE ON RENAL DIALYSIS (5) AV fistula Code(s): I77.0 - ARTERIOVENOUS FISTULA, ACQUIRED Visit type - Emergency Visit Emergency Visit: Yes ED Registration Date: 10/06/19 Care time: The patient presented to the Emergency Department on the above date and was hospitalized for further evaluation of their emergent condition. - New Patient This patient is new to me today: No - Critical Care Critical Care patient: No - Discharge Referral Referred to [facility] Med [facility].C[facility] No
[2019-10-09] MEDS: ALBUTEROL SO4 2.5/IPRATROPIUM 0.5 INH SOL 3 ML VIAL.NEB. NEB SCH ×3 (07:35→20:51)
[2019-10-09 07:43] LABS: HEMATOCRIT 30.4 % (32.4-45.2); HEMOGLOBIN 9.6 GM/dL (10.7-15.3); LYMPH % 4.1 % (8-40); MCH 25.4 pg (25.7-33.7); MCHC 31.5 g/dl (32.0-36.0); MEAN CELL VOLUME 80.6 fl (80-96); MEAN PLT VOLUME 9.5 fl (7.5-11.1); MONO % 1.9 % (3.8-10.2); PLATELET COUNT 197 K/MM3 (134-434); RBC 3.77 M/mm3 (3.60-5.2); RDW 18.9 % (11.6-15.6)
[2019-10-09 08:31] LABS: ALBUMIN 3.5 g/dl (3.4-5.0); BILIRUBIN,TOTAL 0.6 mg/dL (0.2-1); BLOOD UREA NITROGEN 76.4 mg/dL (7-18); CALCIUM 9.1 mg/dL (8.5-10.1); CREATININE 6.9 mg/dL (0.55-1.3); MAGNESIUM 2.5 mg/dL (1.8-2.4); PHOSPHOROUS 5.1 mg/dL (2.5-4.9); POTASSIUM 4.4 mmol/L (3.5-5.1); TOT PROT 7.6 g/dl (6.4-8.2)
[2019-10-09] MEDS ORDERED: INSULIN (LEVEMIR) 100 UNITS/ML UNITS SQ ONE (08:51)
[2019-10-09] MEDS ORDERED: EPOETIN ALFA 10,000 UNIT/1 ML VIAL IVPUSH ONE (09:00)
[2019-10-09] MEDS ORDERED: SODIUM CHLORIDE 250 ML IV PRN (09:00)
--- NOTE | 2019-10-09 11:31 | PN ---
Progress Note, Physician History of Present Illness: patient stable no new issues - Current Medication List Current Medications: Active Medications Acetaminophen (Ofirmev Injection -) 1,000 mg IVPB Q6H PRN PRN Reason: FEVER Albuterol Sulfate (Ventolin 0.083% Nebulizer Soln -) 1 amp NEB RQ4H PRN PRN Reason: SHORT OF BREATH/WHEEZING Albuterol/Ipratropium (Duoneb -) 1 amp NEB RTID [facility] Last Admin: 10/09/19 07:35 Dose: 1 amp Aspirin (Asa -) 81 mg PO DAILY [facility] Last Admin: 10/08/19 09:51 Dose: 81 mg Atorvastatin Calcium (Lipitor -) 10 mg PO HS [facility] Last Admin: 10/08/19 21:49 Dose: 10 mg Clopidogrel Bisulfate (Plavix -) 75 mg PO DAILY [facility] Last Admin: 10/08/19 09:52 Dose: 75 mg Docusate Sodium (Colace -) 100 mg PO HS [facility] Last Admin: 10/08/19 21:49 Dose: 100 mg Gabapentin (Neurontin -) 100 mg PO BID [facility] Last Admin: 10/08/19 21:49 Dose: 100 mg Heparin Sodium (Porcine) (Heparin -) 5,000 unit SQ TID [facility] Last Admin: 10/09/19 06:18 Dose: 5,000 unit Azithromycin (Zithromax 500mg Ivpb (Pre-Docked)) 500 mg in 250 mls @ 250 mls/ hr IVPB DAILY [facility] Last Admin: 10/08/19 09:53 Dose: 250 mls/hr Ceftriaxone Sodium 1 gm/ (Dextrose) 50 mls @ 100 mls/hr IVPB DAILY [facility] Last Admin: 10/08/19 09:52 Dose: 100 mls/hr Insulin Aspart (Novolog Vial Sliding Scale -) 1 vial SQ ACHS [facility]; Protocol Last Admin: 10/09/19 06:19 Dose: 8 unit Insulin Detemir (Levemir Vial) 15 units SQ HS [facility] Last Admin: 10/08/19 21:50 Dose: 15 units Insulin Detemir (Levemir Vial) 10 units SQ AM [facility] Labetalol HCl (Normodyne -) 200 mg PO TID [facility] Last Admin: 10/09/19 06:18 Dose: 200 mg Nifedipine (Procardia Xl -) 60 mg PO DAILY [facility] Last Admin: 10/08/19 09:52 Dose: 60 mg Pantoprazole Sodium (Protonix -) 40 mg PO DAILY [facility] Last Admin: 10/08/19 09:52 Dose: 40 mg - Objective Vital Signs: Vital Signs Temperature 98.8 F 10/09/19 06:00 Pulse Rate 72 10/09/19 06:00 Respiratory Rate 18 10/09/19 06:00 Blood Pressure 171/75 H 10/09/19 06:00 O2 Sat by Pulse Oximetry (%) 96 10/09/19 08:03 Constitutional: Yes: No Distress, Calm Cardiovascular: Yes: S1, S2 Respiratory: Yes: Regular, On BiPap, On Nasal O2 Gastrointestinal: Yes: Normal Bowel Sounds, Soft Musculoskeletal: Yes: WNL Extremities: Yes: WNL Neurological: Yes: Alert, Oriented Psychiatric: Yes: Alert, Oriented Labs: CBC, BMP 10/09/19 07:00 10/09/19 07:00 Assessment/Plan Problem List - Problems (1) Hypoxia Code(s): R09.02 - HYPOXEMIA (2) ESRD (end stage renal disease) on dialysis Code(s): N18.6 - END STAGE RENAL DISEASE; Z99.2 - DEPENDENCE ON RENAL DIALYSIS (3) Acute on chronic diastolic (congestive) heart failure Code(s): I50.33 - ACUTE ON CHRONIC DIASTOLIC (CONGESTIVE) HEART FAILURE (4) Anemia Code(s): D64.9 - ANEMIA, UNSPECIFIED Qualifiers: Anemia type: unspecified type Qualified Code(s): D64.9 - Anemia, unspecified (5) Paroxysmal atrial fibrillation Code(s): I48.0 - PAROXYSMAL ATRIAL FIBRILLATION (6) Shortness of breath Code(s): R06.02 - SHORTNESS OF BREATH (7) Anemia, chronic renal failure Code(s): N18.9 - CHRONIC KIDNEY DISEASE, UNSPECIFIED; D63.1 - ANEMIA IN CHRONIC KIDNEY DISEASE (8) CKD (chronic kidney disease) Code(s): N18.9 - CHRONIC KIDNEY DISEASE, UNSPECIFIED (9) End stage renal disease Code(s): N18.6 - END STAGE RENAL DISEASE (10) Hyperlipidemia Code(s): E78.5 - HYPERLIPIDEMIA, UNSPECIFIED Qualifiers: Hyperlipidemia type: pure hypercholesterolemia Qualified Code(s): E78.00 - Pure hypercholesterolemia, unspecified; E78.0 - Pure hypercholesterolemia (11) Hypertension Code(s): I10 - ESSENTIAL (PRIMARY) HYPERTENSION Qualifiers: Hypertension type: essential hypertension Qualified Code(s): I10 - Essential (primary) hypertension (12) Congestive heart failure Code(s): I50.9 - HEART FAILURE, UNSPECIFIED (13) Acute and chronic respiratory failure with hypoxia Code(s): J96.21 - ACUTE AND CHRONIC RESPIRATORY FAILURE WITH HYPOXIA Assessment/Plan continue abx dialysis rest as per the team
[2019-10-09] MEDS ORDERED: cefTRIAXone SODIUM 1 GM VIAL ONE (12:03)
[2019-10-09] MEDS ORDERED: DEXTROSE 5%-WATER - 50 ML IVPB ONE (12:03)
[2019-10-09 12:11] LABS: ANISOCYTOSIS 2+; PLATELET ESTIMATE NORMAL
[2019-10-09] MEDS: AZITHROMYCIN IVPB 500 MG/250 ML BAG IVPB SCH (12:12)
[2019-10-09] MEDS: CEFTRIAXONE 1 GM in DEXTROSE 5%-WATER - 50 ML IVPB SCH (12:12)
[2019-10-09] MEDS: PANTOPRAZOLE 40 MG TABLET (FP) PO SCH (12:13)
[2019-10-09] MEDS: NIFEdipine E.R 60 MG TABLET (UD) PO SCH (12:13)
[2019-10-09] MEDS: CLOPIDOGREL BISULFATE 75 MG TABLET (FP) PO SCH (12:13)
[2019-10-09] MEDS: ASPIRIN 81 MG CHEWABLE TABLETS PO SCH (12:13)
[2019-10-09] MEDS: GABAPENTIN 100 MG CAPSULE (FP) PO SCH ×2 (12:13→23:01)
--- NOTE | 2019-10-09 12:22 | PN ---
Progress Note (short form) - Note Progress Note: PULMONARY States breathing is improving. Minimal cough. Vital Signs Period Temp Pulse Resp BP Sys/Parker Pulse Ox Last 24 Hr 97.4 F-99.1 F 59-83 16-18 148-182/65-78 93-96 Gen: NAD at rest Heart: RRR Lung: decreased breath sounds at the bases Abd: soft, nontender Ext: no edema CBC, BMP 10/09/19 07:00 10/09/19 07:00 Active Medications Acetaminophen (Ofirmev Injection -) 1,000 mg IVPB Q6H PRN PRN Reason: FEVER Albuterol Sulfate (Ventolin 0.083% Nebulizer Soln -) 1 amp NEB RQ4H PRN PRN Reason: SHORT OF BREATH/WHEEZING Albuterol/Ipratropium (Duoneb -) 1 amp NEB RTID [facility] Last Admin: 10/09/19 07:35 Dose: 1 amp Aspirin (Asa -) 81 mg PO DAILY [facility] Last Admin: 10/09/19 12:13 Dose: 81 mg Atorvastatin Calcium (Lipitor -) 10 mg PO HS [facility] Last Admin: 10/08/19 21:49 Dose: 10 mg Clopidogrel Bisulfate (Plavix -) 75 mg PO DAILY [facility] Last Admin: 10/09/19 12:13 Dose: 75 mg Docusate Sodium (Colace -) 100 mg PO HS [facility] Last Admin: 10/08/19 21:49 Dose: 100 mg Gabapentin (Neurontin -) 100 mg PO BID [facility] Last Admin: 10/09/19 12:13 Dose: 100 mg Heparin Sodium (Porcine) (Heparin -) 5,000 unit SQ TID [facility] Last Admin: 10/09/19 06:18 Dose: 5,000 unit Azithromycin (Zithromax 500mg Ivpb (Pre-Docked)) 500 mg in 250 mls @ 250 mls/ hr IVPB DAILY [facility] Last Admin: 10/09/19 12:12 Dose: 250 mls/hr Ceftriaxone Sodium 1 gm/ (Dextrose) 50 mls @ 100 mls/hr IVPB DAILY [facility] Last Admin: 10/09/19 12:12 Dose: 100 mls/hr Insulin Aspart (Novolog Vial Sliding Scale -) 1 vial SQ ACHS [facility]; Protocol Last Admin: 10/09/19 12:10 Dose: 8 unit Insulin Detemir (Levemir Vial) 15 units SQ HS [facility] Last Admin: 10/08/19 21:50 Dose: 15 units Insulin Detemir (Levemir Vial) 10 units SQ AM [facility] Labetalol HCl (Normodyne -) 200 mg PO TID [facility] Last Admin: 10/09/19 06:18 Dose: 200 mg Nifedipine (Procardia Xl -) 60 mg PO DAILY [facility] Last Admin: 10/09/19 12:13 Dose: 60 mg Pantoprazole Sodium (Protonix -) 40 mg PO DAILY [facility] Last Admin: 10/09/19 12:13 Dose: 40 mg A/P Acute on Chronic Hypoxic Respiratory Failure Acute on Chronic Diastolic Heart Failure ESRD on HD Pulmonary HTN Acute Bronchitis/URI r/o Pneumonia HTN DM COPD - HD per renal with ultrafiltration - daily weights - O2 to keep Spo2 >90% - on empiric antibiotics - monitor off medrol - inhaled bronchodilators - DVT prophylaxis Problem List - Problems (1) Acute on chronic diastolic (congestive) heart failure Code(s): I50.33 - ACUTE ON CHRONIC DIASTOLIC (CONGESTIVE) HEART FAILURE
--- NOTE | 2019-10-09 13:50 | PN ---
Progress Note (short form) - Note Progress Note: Renal follow up for ESRD on HD Seen and examined at the bedside continues to have cough, no fever today has occasional chills s/p dialysis this am with 3L UF Vital Signs Temperature 98.1 F 10/09/19 12:00 Pulse Rate 74 10/09/19 12:00 Respiratory Rate 20 10/09/19 12:00 Blood Pressure 194/74 H 10/09/19 12:00 O2 Sat by Pulse Oximetry (%) 96 10/09/19 12:28 Intake & Output 10/06/19 10/07/19 10/08/19 10/09/19 23:59 23:59 23:59 23:59 Intake Total 865 1650 Output Total 3500 Balance -2635 1650 Weight 61.235 kg 64.127 kg 65.227 kg 66.735 kg NAD RRR, no M/R Dec BS, no wheeze soft NT/ND no LE edema CBC, BMP 10/09/19 07:00 10/09/19 07:00 Current Medications Acetaminophen (Ofirmev Injection -) 1,000 mg IVPB Q6H PRN PRN Reason: FEVER Albuterol Sulfate (Ventolin 0.083% Nebulizer Soln -) 1 amp NEB RQ4H PRN PRN Reason: SHORT OF BREATH/WHEEZING Albuterol/Ipratropium (Duoneb -) 1 amp NEB RTID [facility] Last Admin: 10/09/19 07:35 Dose: 1 amp Aspirin (Asa -) 81 mg PO DAILY [facility] Last Admin: 10/09/19 12:13 Dose: 81 mg Atorvastatin Calcium (Lipitor -) 10 mg PO HS [facility] Last Admin: 10/08/19 21:49 Dose: 10 mg Clopidogrel Bisulfate (Plavix -) 75 mg PO DAILY [facility] Last Admin: 10/09/19 12:13 Dose: 75 mg Docusate Sodium (Colace -) 100 mg PO HS [facility] Last Admin: 10/08/19 21:49 Dose: 100 mg Gabapentin (Neurontin -) 100 mg PO BID [facility] Last Admin: 10/09/19 12:13 Dose: 100 mg Heparin Sodium (Porcine) (Heparin -) 5,000 unit SQ TID [facility] Last Admin: 10/09/19 06:18 Dose: 5,000 unit Azithromycin (Zithromax 500mg Ivpb (Pre-Docked)) 500 mg in 250 mls @ 250 mls/ hr IVPB DAILY [facility] Last Admin: 10/09/19 12:12 Dose: 250 mls/hr Ceftriaxone Sodium 1 gm/ (Dextrose) 50 mls @ 100 mls/hr IVPB DAILY [facility] Last Admin: 10/09/19 12:12 Dose: 100 mls/hr Insulin Aspart (Novolog Vial Sliding Scale -) 1 vial SQ ACHS [facility]; Protocol Last Admin: 10/09/19 12:10 Dose: 8 unit Insulin Detemir (Levemir Vial) 15 units SQ HS [facility] Last Admin: 10/08/19 21:50 Dose: 15 units Insulin Detemir (Levemir Vial) 10 units SQ AM [facility] Labetalol HCl (Normodyne -) 200 mg PO TID [facility] Last Admin: 10/09/19 06:18 Dose: 200 mg Nifedipine (Procardia Xl -) 60 mg PO DAILY [facility] Last Admin: 10/09/19 12:13 Dose: 60 mg Pantoprazole Sodium (Protonix -) 40 mg PO DAILY [facility] Last Admin: 10/09/19 12:13 Dose: 40 mg 73 year old woman with history of ESRD on HD (TTS), diastolic HF, COPD who presented with cough and fever and admitted for URI +/- volume overload. 1. ESRD on HD 2. Hyperkalemia 3. Hyponatremia 4. URI/Fever 5. Mild pulmonary congestion 6. Anemia tolerated dialysis this am with 3L UF Renal diet and 1.2L fluid restriction. Continue empiric antibiotics as steroids Will give CLIFTON with HD for anemia BP remains above goal, will add Losartan 25mg Daily. Continue Nifedpine and Labetalol Thank you Alf Mcmahan DO
[2019-10-09] MEDS: LOSARTAN POTASSIUM 25 MG TABLET PO SCH (14:13)
[2019-10-09] MEDS ORDERED: INSULIN (NOVOLOG) ASPART 100 UNITS/ML 10ML VIAL SQ ONE (18:51)
[2019-10-09] MEDS: ATORVASTATIN CA 10 MG TABLET (FP) PO SCH (23:00)
[2019-10-09] MEDS: INSULIN (LEVEMIR) 100 UNITS/ML UNITS SQ SCH (23:00)
[2019-10-09] MEDS: DOCUSATE SODIUM 100 MG CAPSULE (FP) PO SCH (23:00)
[2019-10-10] MEDS: INSULIN (LEVEMIR) 100 UNITS/ML UNITS SQ SCH ×2 (06:26→21:15)
[2019-10-10] MEDS: HEPARIN NA (PORCINE) 5,000 UNITS/ML 1ML VIAL SQ SCH ×3 (06:26→21:15)
[2019-10-10] MEDS: LABETALOL HCL 200 MG TABLET (FP) PO SCH ×3 (06:26→21:15)
[2019-10-10] MEDS: INSULIN SLIDING SCALE (NOVOLOG) 1 VIAL SQ SCH ×4 (06:28→21:16)
[2019-10-10] MEDS ORDERED: INSULIN (LEVEMIR) 100 UNITS/ML UNITS SQ SCH (07:00)
[2019-10-10 07:38] LABS: BASO % 0.1 % (0-2.0); HEMATOCRIT 35.9 % (32.4-45.2); HEMOGLOBIN 11.4 GM/dL (10.7-15.3); LYMPH % 10.5 % (8-40); MCH 25.5 pg (25.7-33.7); MCHC 31.7 g/dl (32.0-36.0); MEAN CELL VOLUME 80.6 fl (80-96); MEAN PLT VOLUME 9.6 fl (7.5-11.1); MONO % 8.4 % (3.8-10.2); PLATELET COUNT 256 K/MM3 (134-434); RBC 4.46 M/mm3 (3.60-5.2); RDW 18.8 % (11.6-15.6); WHITE BLOOD COUNT 13.3 K/mm3 (4.0-10.0)
[2019-10-10 07:44] LABS: ALBUMIN 3.4 g/dl (3.4-5.0); BILIRUBIN,TOTAL 0.6 mg/dL (0.2-1); BLOOD UREA NITROGEN 62.9 mg/dL (7-18); CALCIUM 8.9 mg/dL (8.5-10.1); CREATININE 4.8 mg/dL (0.55-1.3); MAGNESIUM 2.2 mg/dL (1.8-2.4); POTASSIUM 4.2 mmol/L (3.5-5.1); TOT PROT 7.4 g/dl (6.4-8.2)
[2019-10-10] MEDS ORDERED: DEXTROSE 5%-WATER - 50 ML IVPB ONE (08:41)
[2019-10-10] MEDS ORDERED: cefTRIAXone SODIUM 1 GM VIAL ONE (08:41)
[2019-10-10] MEDS: ALBUTEROL SO4 2.5/IPRATROPIUM 0.5 INH SOL 3 ML VIAL.NEB. NEB SCH ×3 (09:00→20:16)
[2019-10-10] MEDS ORDERED: PT OWN MED DRAWER 7, Y5N ONE (09:42)
[2019-10-10] MEDS: CEFTRIAXONE 1 GM in DEXTROSE 5%-WATER - 50 ML IVPB SCH (09:46)
[2019-10-10] MEDS: NIFEdipine E.R 60 MG TABLET (UD) PO SCH (09:47)
[2019-10-10] MEDS: ASPIRIN 81 MG CHEWABLE TABLETS PO SCH (09:47)
[2019-10-10] MEDS: LOSARTAN POTASSIUM 25 MG TABLET PO SCH (09:47)
[2019-10-10] MEDS: PANTOPRAZOLE 40 MG TABLET (FP) PO SCH (09:47)
[2019-10-10] MEDS: CLOPIDOGREL BISULFATE 75 MG TABLET (FP) PO SCH (09:47)
[2019-10-10] MEDS: GABAPENTIN 100 MG CAPSULE (FP) PO SCH ×2 (09:47→21:15)
[2019-10-10] MEDS: AZITHROMYCIN IVPB 500 MG/250 ML BAG IVPB SCH (09:48)
[2019-10-10 10:05] LABS: ANISOCYTOSIS 2+; PLATELET ESTIMATE NORMAL
--- NOTE | 2019-10-10 11:02 | PN ---
Progress Note, Physician History of Present Illness: no new issues - Current Medication List Current Medications: Active Medications Acetaminophen (Ofirmev Injection -) 1,000 mg IVPB Q6H PRN PRN Reason: FEVER Albuterol Sulfate (Ventolin 0.083% Nebulizer Soln -) 1 amp NEB RQ4H PRN PRN Reason: SHORT OF BREATH/WHEEZING Albuterol/Ipratropium (Duoneb -) 1 amp NEB RTID [facility] Last Admin: 10/10/19 09:00 Dose: 1 amp Aspirin (Asa -) 81 mg PO DAILY [facility] Last Admin: 10/10/19 09:47 Dose: 81 mg Atorvastatin Calcium (Lipitor -) 10 mg PO HS [facility] Last Admin: 10/09/19 23:00 Dose: 10 mg Clopidogrel Bisulfate (Plavix -) 75 mg PO DAILY [facility] Last Admin: 10/10/19 09:47 Dose: 75 mg Docusate Sodium (Colace -) 100 mg PO HS [facility] Last Admin: 10/09/19 23:00 Dose: 100 mg Gabapentin (Neurontin -) 100 mg PO BID [facility] Last Admin: 10/10/19 09:47 Dose: 100 mg Heparin Sodium (Porcine) (Heparin -) 5,000 unit SQ TID [facility] Last Admin: 10/10/19 06:26 Dose: 5,000 unit Azithromycin (Zithromax 500mg Ivpb (Pre-Docked)) 500 mg in 250 mls @ 250 mls/ hr IVPB DAILY [facility] Last Admin: 10/10/19 09:48 Dose: 250 mls/hr Ceftriaxone Sodium 1 gm/ (Dextrose) 50 mls @ 100 mls/hr IVPB DAILY [facility] Last Admin: 10/10/19 09:46 Dose: 100 mls/hr Insulin Aspart (Novolog Vial Sliding Scale -) 1 vial SQ ACHS [facility]; Protocol Last Admin: 10/10/19 06:28 Dose: 8 units Insulin Detemir (Levemir Vial) 15 units SQ HS [facility] Last Admin: 10/09/19 23:00 Dose: 15 units Insulin Detemir (Levemir Vial) 15 units SQ AM [facility] Last Admin: 10/10/19 06:26 Dose: 15 units Labetalol HCl (Normodyne -) 200 mg PO TID [facility] Last Admin: 10/10/19 06:26 Dose: 200 mg Losartan Potassium (Cozaar -) 25 mg PO DAILY [facility] Last Admin: 10/10/19 09:47 Dose: 25 mg Nifedipine (Procardia Xl -) 60 mg PO DAILY [facility] Last Admin: 10/10/19 09:47 Dose: 60 mg Pantoprazole Sodium (Protonix -) 40 mg PO DAILY [facility] Last Admin: 10/10/19 09:47 Dose: 40 mg - Objective Vital Signs: Vital Signs Temperature 97.5 F L 10/10/19 06:00 Pulse Rate 63 10/10/19 06:00 Respiratory Rate 18 10/10/19 06:00 Blood Pressure 158/71 10/10/19 06:00 O2 Sat by Pulse Oximetry (%) 99 10/10/19 09:00 Constitutional: Yes: No Distress, Calm Cardiovascular: Yes: S1, S2 Respiratory: Yes: On Nasal O2 Gastrointestinal: Yes: Normal Bowel Sounds, Soft Musculoskeletal: Yes: WNL Extremities: Yes: WNL Neurological: Yes: Alert, Oriented Psychiatric: Yes: Alert, Oriented Labs: CBC, BMP 10/10/19 06:30 10/10/19 06:30 Assessment/Plan Problem List - Problems (1) Hypoxia Code(s): R09.02 - HYPOXEMIA (2) ESRD (end stage renal disease) on dialysis Code(s): N18.6 - END STAGE RENAL DISEASE; Z99.2 - DEPENDENCE ON RENAL DIALYSIS (3) Acute on chronic diastolic (congestive) heart failure Code(s): I50.33 - ACUTE ON CHRONIC DIASTOLIC (CONGESTIVE) HEART FAILURE (4) Anemia Code(s): D64.9 - ANEMIA, UNSPECIFIED Qualifiers: Anemia type: unspecified type Qualified Code(s): D64.9 - Anemia, unspecified (5) Paroxysmal atrial fibrillation Code(s): I48.0 - PAROXYSMAL ATRIAL FIBRILLATION (6) Shortness of breath Code(s): R06.02 - SHORTNESS OF BREATH (7) Anemia, chronic renal failure Code(s): N18.9 - CHRONIC KIDNEY DISEASE, UNSPECIFIED; D63.1 - ANEMIA IN CHRONIC KIDNEY DISEASE (8) CKD (chronic kidney disease) Code(s): N18.9 - CHRONIC KIDNEY DISEASE, UNSPECIFIED (9) End stage renal disease Code(s): N18.6 - END STAGE RENAL DISEASE (10) Hyperlipidemia Code(s): E78.5 - HYPERLIPIDEMIA, UNSPECIFIED Qualifiers: Hyperlipidemia type: pure hypercholesterolemia Qualified Code(s): E78.00 - Pure hypercholesterolemia, unspecified; E78.0 - Pure hypercholesterolemia (11) Hypertension Code(s): I10 - ESSENTIAL (PRIMARY) HYPERTENSION Qualifiers: Hypertension type: essential hypertension Qualified Code(s): I10 - Essential (primary) hypertension (12) Congestive heart failure Code(s): I50.9 - HEART FAILURE, UNSPECIFIED (13) Acute and chronic respiratory failure with hypoxia Code(s): J96.21 - ACUTE AND CHRONIC RESPIRATORY FAILURE WITH HYPOXIA Assessment/Plan continue abx dialysis rest as per the team
--- NOTE | 2019-10-10 11:57 | PN ---
Physical Exam: SUBJECTIVE: Patient seen and examined at the bedside. feels better, less cough. OBJECTIVE: Patient is a 73 year old female with a significant past medical history of ESRD- via left av fistula, diabetes, hypertension, diastolic CHF, and COPD (on home oxygen) who comes in with c/o of 2 days of sore throat/cough and malaise. She endorses subjective fevers at home with chills. In the ED she was placed on bipap for acute hypoxic respiratory failure (desaurated to the 70s in the ED) and being ruled out for pneumonia. She received dialysis yesterday. Vital Signs Period Temp Pulse Resp BP Sys/Parker Pulse Ox Last 24 Hr 97.5 F-98.8 F 58-74 18-20 154-194/65-74 96-99 GENERAL: The patient is awake, alert and in no acute distress. primarily speaks moroccan. HEAD: Normal with no signs of trauma. EYES: PERRL, extraocular movements intact, sclera anicteric, conjunctiva clear. No ptosis. ENT: Ears normal, nares patent, oropharynx clear without exudates, moist mucous membranes. NECK: Trachea midline, full range of motion, supple. LUNGS: Breath sounds diminished, appears congested HEART: Regular rate and rhythm EXT: (R AVF noted, +bruit/thrill) ABDOMEN: Soft, nontender, nondistended, normoactive bowel sounds, no guarding, no rebound, no hepatosplenomegaly, no masses. Laboratory Results - last 24 hr 10/09/19 10/09/19 10/09/19 07:00 12:06 17:13 WBC RBC Hgb Hct MCV MCH MCHC RDW Plt Count MPV Absolute Neuts (auto) Neutrophils % Neutrophils % (Manual) 89.1 H Band Neutrophils % 0.0 Lymphocytes % Lymphocytes % (Manual) 2.9 L D Monocytes % Monocytes % (Manual) 3 L D Eosinophils % Eosinophils % (Manual) 0.0 Basophils % Basophils % (Manual) 0.0 Myelocytes % (Man) 3 H D Promyelocytes % (Man) 0 D Blast Cells % (Manual) 0 Nucleated RBC % Metamyelocytes 0 D Hypochromia 1+ Platelet Estimate Normal Polychromasia 1+ Anisocytosis 2+ Schistocytes Sodium Potassium Chloride Carbon Dioxide Anion Gap BUN Creatinine Est GFR (CKD-EPI)AfAm Est GFR (CKD-EPI)NonAf POC Glucometer 331 444 Random Glucose Calcium Magnesium Total Bilirubin AST ALT Alkaline Phosphatase Total Protein Albumin 10/09/19 10/09/19 10/10/19 19:49 22:58 06:00 WBC RBC Hgb Hct MCV MCH MCHC RDW Plt Count MPV Absolute Neuts (auto) Neutrophils % Neutrophils % (Manual) Band Neutrophils % Lymphocytes % Lymphocytes % (Manual) Monocytes % Monocytes % (Manual) Eosinophils % Eosinophils % (Manual) Basophils % Basophils % (Manual) Myelocytes % (Man) Promyelocytes % (Man) Blast Cells % (Manual) Nucleated RBC % Metamyelocytes Hypochromia Platelet Estimate Polychromasia Anisocytosis Schistocytes Sodium 132 L Potassium 4.2 Chloride 93 L Carbon Dioxide 27 Anion Gap 12 BUN 62.9 H Creatinine 4.8 H Est GFR (CKD-EPI)AfAm 9.71 Est GFR (CKD-EPI)NonAf 8.38 POC Glucometer 419 226 Random Glucose 293 H Calcium 8.9 Magnesium 2.2 Total Bilirubin 0.6 AST 16 ALT 23 Alkaline Phosphatase 162 H Total Protein 7.4 Albumin 3.4 10/10/19 10/10/19 10/10/19 06:23 06:30 06:30 WBC 13.3 H RBC 4.46 Hgb 11.4 Hct 35.9 D MCV 80.6 MCH 25.5 L MCHC 31.7 L RDW 18.8 H Plt Count 256 D MPV 9.6 Absolute Neuts (auto) 10.7 H Neutrophils % 81.0 Neutrophils % (Manual) 48.9 Band Neutrophils % 0.0 Lymphocytes % 10.5 D Lymphocytes % (Manual) 2.3 L D Monocytes % 8.4 D Monocytes % (Manual) 8 D Eosinophils % 0.0 Eosinophils % (Manual) 36.4 H D Basophils % 0.1 D Basophils % (Manual) 0.0 Myelocytes % (Man) 1 D Promyelocytes % (Man) 0 Blast Cells % (Manual) 0 Nucleated RBC % 0 Metamyelocytes 0 Hypochromia 1+ Platelet Estimate Normal Polychromasia 1+ Anisocytosis 2+ Schistocytes 1+ Sodium Cancelled Potassium Cancelled Chloride Cancelled Carbon Dioxide Cancelled Anion Gap Cancelled BUN Cancelled Creatinine Cancelled Est GFR (CKD-EPI)AfAm Cancelled Est GFR (CKD-EPI)NonAf Cancelled POC Glucometer 284 Random Glucose Cancelled Calcium Cancelled Magnesium Total Bilirubin Cancelled AST Cancelled ALT Cancelled Alkaline Phosphatase Cancelled Total Protein Cancelled Albumin Cancelled Active Medications Generic Name Dose Route Start Last Admin Trade Name Ignacio PRN Reason Stop Dose Admin Acetaminophen 1,000 mg 10/07/19 17:24 Ofirmev Injection - IVPB Q6H PRN FEVER Albuterol Sulfate 1 amp 10/07/19 12:38 Ventolin 0.083% Nebulizer Soln - NEB RQ4H PRN SHORT OF BREATH/WHEEZING Albuterol/Ipratropium 1 amp 10/07/19 14:00 10/10/19 09:00 Duoneb - NEB 1 amp RTID [facility] Administration Aspirin 81 mg 10/07/19 10:00 10/10/19 09:47 Asa - PO 81 mg DAILY [facility] Administration Atorvastatin Calcium 10 mg 10/07/19 22:00 10/09/19 23:00 Lipitor - PO 10 mg HS [facility] Administration Clopidogrel Bisulfate 75 mg 10/07/19 10:00 10/10/19 09:47 Plavix - PO 75 mg DAILY [facility] Administration Docusate Sodium 100 mg 10/07/19 22:00 10/09/19 23:00 Colace - PO 100 mg HS [facility] Administration Gabapentin 100 mg 10/07/19 10:00 10/10/19 09:47 Neurontin - PO 100 mg BID [facility] Administration Heparin Sodium (Porcine) 5,000 unit 10/07/19 06:00 10/10/19 06:26 Heparin - SQ 5,000 unit TID [facility] Administration Azithromycin 500 mg in 250 mls @ 250 mls/hr 10/07/19 10:00 10/10/19 09:48 Zithromax 500mg Ivpb (Pre-Docked) IVPB 250 mls/hr DAILY [facility] Administration Ceftriaxone Sodium 1 gm/ 50 mls @ 100 mls/hr 10/07/19 10:00 10/10/19 09:46 Dextrose IVPB 100 mls/hr DAILY [facility] Administration Insulin Aspart 1 vial 10/09/19 22:00 10/10/19 06:28 Novolog Vial Sliding Scale - SQ 8 units ACHS [facility] Administration Protocol Insulin Detemir 15 units 10/08/19 12:53 10/09/19 23:00 Levemir Vial SQ 15 units HS [facility] Administration Insulin Detemir 15 units 10/10/19 07:00 10/10/19 06:26 Levemir Vial SQ 15 units AM [facility] Administration Labetalol HCl 200 mg 10/07/19 06:00 10/10/19 06:26 Normodyne - PO 200 mg TID [facility] Administration Losartan Potassium 25 mg 10/09/19 14:00 10/10/19 09:47 Cozaar - PO 25 mg DAILY [facility] Administration Nifedipine 60 mg 10/07/19 10:00 10/10/19 09:47 Procardia Xl - PO 60 mg DAILY [facility] Administration Pantoprazole Sodium 40 mg 10/07/19 10:00 10/10/19 09:47 Protonix - PO 40 mg DAILY [facility] Administration ASSESSMENT/PLAN: Problem List - Problems (1) Acute and chronic respiratory failure with hypoxia Assessment/Plan: CXR with prominent hilar markings appreciate pulmonary consultation c/w azithromycin/ceftriaxone. clinically improved, no CT chest needed Code(s): J96.21 - ACUTE AND CHRONIC RESPIRATORY FAILURE WITH HYPOXIA (2) Pneumonia Assessment/Plan: on empiric antibiotics ID following Code(s): J18.9 - PNEUMONIA, UNSPECIFIED ORGANISM Qualifiers: Pneumonia type: due to unspecified organism Laterality: left Lung location: lower lobe of lung Qualified Code(s): J18.9 - Pneumonia, unspecified organism (3) Hypoxia Assessment/Plan: supplemental O2 to keep Spo2 >90% c/w antibiotic solumedrol stopped, monitor off c/w inhaled bronchodilators BiPap prn Code(s): R09.02 - HYPOXEMIA (4) ESRD (end stage renal disease) on dialysis Assessment/Plan: dialysis yesterday renal following Code(s): N18.6 - END STAGE RENAL DISEASE; Z99.2 - DEPENDENCE ON RENAL DIALYSIS (5) AV fistula Code(s): I77.0 - ARTERIOVENOUS FISTULA, ACQUIRED (6) Sepsis Code(s): A41.9 - SEPSIS, UNSPECIFIED ORGANISM (7) Anemia Assessment/Plan: monitor with daily labs Code(s): D64.9 - ANEMIA, UNSPECIFIED (8) Diabetes Assessment/Plan: BGM elevated pm levemir increased sliding scale increased diabetic diet Code(s): E11.9 - TYPE 2 DIABETES MELLITUS WITHOUT COMPLICATIONS (9) Prophylactic measure Assessment/Plan: FEN HD yesterday monitor electrolytes daily weights no additional IVF diabetic/renal diet DVT heparin sq Disapo maintain on tele full code discharge planning Code(s): Z29.9 - ENCOUNTER FOR PROPHYLACTIC MEASURES, UNSPECIFIED Visit type - Emergency Visit Emergency Visit: Yes ED Registration Date: 10/06/19 Care time: The patient presented to the Emergency Department on the above date and was hospitalized for further evaluation of their emergent condition. - New Patient This patient is new to me today: No - Critical Care Critical Care patient: No - Discharge Referral Referred to [facility] Med [facility] No
[2019-10-10] MEDS ORDERED: INSULIN SLIDING SCALE (NOVOLOG) 1 VIAL SQ ONE (12:14)
--- NOTE | 2019-10-10 12:16 | PN ---
Progress Note (short form) - Note Progress Note: Reports breathing is improving. Minimal cough. No acute events overnight. Intake & Output 10/07/19 10/08/19 10/09/19 10/10/19 23:59 23:59 23:59 23:59 Intake Total 865 1650 240 370 Output Total 3500 Balance -2635 1650 240 370 Weight 141 lb 6 oz 143 lb 12.8 oz 147 lb 2 oz Last Vital Signs Temp Pulse Resp BP Pulse Ox 97.5 F L 63 18 158/71 99 10/10/19 06:00 10/10/19 06:00 10/10/19 06:00 10/10/19 06:00 10/10/19 09:00 Active Medications Acetaminophen (Ofirmev Injection -) 1,000 mg IVPB Q6H PRN PRN Reason: FEVER Albuterol Sulfate (Ventolin 0.083% Nebulizer Soln -) 1 amp NEB RQ4H PRN PRN Reason: SHORT OF BREATH/WHEEZING Albuterol/Ipratropium (Duoneb -) 1 amp NEB RTID [facility] Last Admin: 10/10/19 09:00 Dose: 1 amp Aspirin (Asa -) 81 mg PO DAILY [facility] Last Admin: 10/10/19 09:47 Dose: 81 mg Atorvastatin Calcium (Lipitor -) 10 mg PO HS [facility] Last Admin: 10/09/19 23:00 Dose: 10 mg Clopidogrel Bisulfate (Plavix -) 75 mg PO DAILY [facility] Last Admin: 10/10/19 09:47 Dose: 75 mg Docusate Sodium (Colace -) 100 mg PO HS [facility] Last Admin: 10/09/19 23:00 Dose: 100 mg Gabapentin (Neurontin -) 100 mg PO BID [facility] Last Admin: 10/10/19 09:47 Dose: 100 mg Heparin Sodium (Porcine) (Heparin -) 5,000 unit SQ TID [facility] Last Admin: 10/10/19 06:26 Dose: 5,000 unit Azithromycin (Zithromax 500mg Ivpb (Pre-Docked)) 500 mg in 250 mls @ 250 mls/ hr IVPB DAILY [facility] Last Admin: 10/10/19 09:48 Dose: 250 mls/hr Ceftriaxone Sodium 1 gm/ (Dextrose) 50 mls @ 100 mls/hr IVPB DAILY [facility] Last Admin: 10/10/19 09:46 Dose: 100 mls/hr Insulin Aspart (Novolog Vial Sliding Scale -) 1 vial SQ ACHS [facility]; Protocol Last Admin: 10/10/19 12:16 Dose: 6 units Insulin Detemir (Levemir Vial) 15 units SQ HS [facility] Last Admin: 10/09/19 23:00 Dose: 15 units Insulin Detemir (Levemir Vial) 15 units SQ AM [facility] Last Admin: 10/10/19 06:26 Dose: 15 units Labetalol HCl (Normodyne -) 200 mg PO TID [facility] Last Admin: 10/10/19 06:26 Dose: 200 mg Losartan Potassium (Cozaar -) 25 mg PO DAILY [facility] Last Admin: 10/10/19 09:47 Dose: 25 mg Nifedipine (Procardia Xl -) 60 mg PO DAILY [facility] Last Admin: 10/10/19 09:47 Dose: 60 mg Pantoprazole Sodium (Protonix -) 40 mg PO DAILY [facility] Last Admin: 10/10/19 09:47 Dose: 40 mg Gen: NAD at rest Heart: RRR Lung: decreased breath sounds at the bases Abd: soft, nontender Ext: no edema Laboratory Results - last 24 hr 10/09/19 10/09/19 10/09/19 07:00 12:06 17:13 WBC RBC Hgb Hct MCV MCH MCHC RDW Plt Count MPV Absolute Neuts (auto) Neutrophils % Neutrophils % (Manual) 89.1 H Band Neutrophils % 0.0 Lymphocytes % Lymphocytes % (Manual) 2.9 L D Monocytes % Monocytes % (Manual) 3 L D Eosinophils % Eosinophils % (Manual) 0.0 Basophils % Basophils % (Manual) 0.0 Myelocytes % (Man) 3 H D Promyelocytes % (Man) 0 D Blast Cells % (Manual) 0 Nucleated RBC % Metamyelocytes 0 D Hypochromia 1+ Platelet Estimate Normal Polychromasia 1+ Anisocytosis 2+ Schistocytes Sodium Potassium Chloride Carbon Dioxide Anion Gap BUN Creatinine Est GFR (CKD-EPI)AfAm Est GFR (CKD-EPI)NonAf POC Glucometer 331 444 Random Glucose Calcium Magnesium Total Bilirubin AST ALT Alkaline Phosphatase Total Protein Albumin 10/09/19 10/09/19 10/10/19 19:49 22:58 06:00 WBC RBC Hgb Hct MCV MCH MCHC RDW Plt Count MPV Absolute Neuts (auto) Neutrophils % Neutrophils % (Manual) Band Neutrophils % Lymphocytes % Lymphocytes % (Manual) Monocytes % Monocytes % (Manual) Eosinophils % Eosinophils % (Manual) Basophils % Basophils % (Manual) Myelocytes % (Man) Promyelocytes % (Man) Blast Cells % (Manual) Nucleated RBC % Metamyelocytes Hypochromia Platelet Estimate Polychromasia Anisocytosis Schistocytes Sodium 132 L Potassium 4.2 Chloride 93 L Carbon Dioxide 27 Anion Gap 12 BUN 62.9 H Creatinine 4.8 H Est GFR (CKD-EPI)AfAm 9.71 Est GFR (CKD-EPI)NonAf 8.38 POC Glucometer 419 226 Random Glucose 293 H Calcium 8.9 Magnesium 2.2 Total Bilirubin 0.6 AST 16 ALT 23 Alkaline Phosphatase 162 H Total Protein 7.4 Albumin 3.4 10/10/19 10/10/19 10/10/19 06:23 06:30 06:30 WBC 13.3 H RBC 4.46 Hgb 11.4 Hct 35.9 D MCV 80.6 MCH 25.5 L MCHC 31.7 L RDW 18.8 H Plt Count 256 D MPV 9.6 Absolute Neuts (auto) 10.7 H Neutrophils % 81.0 Neutrophils % (Manual) 48.9 Band Neutrophils % 0.0 Lymphocytes % 10.5 D Lymphocytes % (Manual) 2.3 L D Monocytes % 8.4 D Monocytes % (Manual) 8 D Eosinophils % 0.0 Eosinophils % (Manual) 36.4 H D Basophils % 0.1 D Basophils % (Manual) 0.0 Myelocytes % (Man) 1 D Promyelocytes % (Man) 0 Blast Cells % (Manual) 0 Nucleated RBC % 0 Metamyelocytes 0 Hypochromia 1+ Platelet Estimate Normal Polychromasia 1+ Anisocytosis 2+ Schistocytes 1+ Sodium Cancelled Potassium Cancelled Chloride Cancelled Carbon Dioxide Cancelled Anion Gap Cancelled BUN Cancelled Creatinine Cancelled Est GFR (CKD-EPI)AfAm Cancelled Est GFR (CKD-EPI)NonAf Cancelled POC Glucometer 284 Random Glucose Cancelled Calcium Cancelled Magnesium Total Bilirubin Cancelled AST Cancelled ALT Cancelled Alkaline Phosphatase Cancelled Total Protein Cancelled Albumin Cancelled 10/10/19 11:58 WBC RBC Hgb Hct MCV MCH MCHC RDW Plt Count MPV Absolute Neuts (auto) Neutrophils % Neutrophils % (Manual) Band Neutrophils % Lymphocytes % Lymphocytes % (Manual) Monocytes % Monocytes % (Manual) Eosinophils % Eosinophils % (Manual) Basophils % Basophils % (Manual) Myelocytes % (Man) Promyelocytes % (Man) Blast Cells % (Manual) Nucleated RBC % Metamyelocytes Hypochromia Platelet Estimate Polychromasia Anisocytosis Schistocytes Sodium Potassium Chloride Carbon Dioxide Anion Gap BUN Creatinine Est GFR (CKD-EPI)AfAm Est GFR (CKD-EPI)NonAf POC Glucometer 204 Random Glucose Calcium Magnesium Total Bilirubin AST ALT Alkaline Phosphatase Total Protein Albumin Problem List - Problems (1) Acute on chronic diastolic (congestive) heart failure Code(s): I50.33 - ACUTE ON CHRONIC DIASTOLIC (CONGESTIVE) HEART FAILURE A/P Acute on Chronic Hypoxic Respiratory Failure Acute on Chronic Diastolic Heart Failure ESRD on HD Pulmonary HTN Acute Bronchitis/URI r/o Pneumonia HTN DM COPD - HD per renal with ultrafiltration - daily weights - O2 to keep Spo2 >90% - on empiric antibiotics - monitor off medrol - inhaled bronchodilators - DVT prophylaxis Dr Haynes
--- NOTE | 2019-10-10 13:57 | PN ---
Progress Note (short form) - Note Progress Note: Renal follow up for ESRD on HD Seen and examined at the bedside awake and alert continues to have cough, sob is improved no chest pain, fever or chills feels dizzy when getting antibiotics Vital Signs Temperature 98.0 F 10/10/19 09:35 Pulse Rate 79 10/10/19 09:35 Respiratory Rate 20 10/10/19 09:35 Blood Pressure 123/69 10/10/19 09:35 O2 Sat by Pulse Oximetry (%) 99 10/10/19 09:00 Intake & Output 10/07/19 10/08/19 10/09/19 10/10/19 23:59 23:59 23:59 23:59 Intake Total 865 1650 240 370 Output Total 3500 Balance -2635 1650 240 370 Weight 64.127 kg 65.227 kg 66.735 kg NAD RRR, no M/R Dec BS, no wheeze soft NT/ND no LE edema CBC, BMP 10/10/19 06:30 10/10/19 06:30 Current Medications Acetaminophen (Ofirmev Injection -) 1,000 mg IVPB Q6H PRN PRN Reason: FEVER Albuterol Sulfate (Ventolin 0.083% Nebulizer Soln -) 1 amp NEB RQ4H PRN PRN Reason: SHORT OF BREATH/WHEEZING Albuterol/Ipratropium (Duoneb -) 1 amp NEB RTID [facility] Last Admin: 10/10/19 09:00 Dose: 1 amp Aspirin (Asa -) 81 mg PO DAILY [facility] Last Admin: 10/10/19 09:47 Dose: 81 mg Atorvastatin Calcium (Lipitor -) 10 mg PO HS [facility] Last Admin: 10/09/19 23:00 Dose: 10 mg Clopidogrel Bisulfate (Plavix -) 75 mg PO DAILY [facility] Last Admin: 10/10/19 09:47 Dose: 75 mg Docusate Sodium (Colace -) 100 mg PO HS [facility] Last Admin: 10/09/19 23:00 Dose: 100 mg Gabapentin (Neurontin -) 100 mg PO BID [facility] Last Admin: 10/10/19 09:47 Dose: 100 mg Heparin Sodium (Porcine) (Heparin -) 5,000 unit SQ TID [facility] Last Admin: 10/10/19 13:34 Dose: 5,000 unit Azithromycin (Zithromax 500mg Ivpb (Pre-Docked)) 500 mg in 250 mls @ 250 mls/ hr IVPB DAILY [facility] Last Admin: 10/10/19 09:48 Dose: 250 mls/hr Ceftriaxone Sodium 1 gm/ (Dextrose) 50 mls @ 100 mls/hr IVPB DAILY [facility] Last Admin: 10/10/19 09:46 Dose: 100 mls/hr Insulin Aspart (Novolog Vial Sliding Scale -) 1 vial SQ ACHS [facility]; Protocol Last Admin: 10/10/19 12:16 Dose: 6 units Insulin Detemir (Levemir Vial) 15 units SQ HS [facility] Last Admin: 10/09/19 23:00 Dose: 15 units Insulin Detemir (Levemir Vial) 15 units SQ AM [facility] Last Admin: 10/10/19 06:26 Dose: 15 units Labetalol HCl (Normodyne -) 200 mg PO TID [facility] Last Admin: 10/10/19 13:34 Dose: 200 mg Losartan Potassium (Cozaar -) 25 mg PO DAILY [facility] Last Admin: 10/10/19 09:47 Dose: 25 mg Nifedipine (Procardia Xl -) 60 mg PO DAILY [facility] Last Admin: 10/10/19 09:47 Dose: 60 mg Pantoprazole Sodium (Protonix -) 40 mg PO DAILY [facility] Last Admin: 10/10/19 09:47 Dose: 40 mg 73 year old woman with history of ESRD on HD (TTS), diastolic HF, COPD who presented with cough and fever and admitted for URI +/- volume overload. 1. ESRD on HD 2. Hyperkalemia 3. Hyponatremia 4. URI/Fever 5. Mild pulmonary congestion 6. Anemia no acute need for dialysis today, next treatment planned for tomorrow Renal diet and 1.2L fluid restriction. Continue empiric antibiotics titrate steroids as per pulmonary Will give CLIFTON with HD for anemia Continue Losartan, Nifedpine and Labetalol Thank you Alf Mcmahan DO
[2019-10-10] MEDS: ACETAMINOPHEN 325 MG TABLET (FP) PO PRN (19:02)
[2019-10-10] MEDS: DOCUSATE SODIUM 100 MG CAPSULE (FP) PO SCH (21:15)
[2019-10-10] MEDS: ATORVASTATIN CA 10 MG TABLET (FP) PO SCH (21:15)
[2019-10-11] MEDS: HEPARIN NA (PORCINE) 5,000 UNITS/ML 1ML VIAL SQ SCH ×3 (05:44→21:44)
[2019-10-11] MEDS: LABETALOL HCL 200 MG TABLET (FP) PO SCH (05:44)
[2019-10-11] MEDS: INSULIN (LEVEMIR) 100 UNITS/ML UNITS SQ SCH ×2 (07:05→21:45)
[2019-10-11] MEDS: INSULIN SLIDING SCALE (NOVOLOG) 1 VIAL SQ SCH ×4 (07:06→21:46)
[2019-10-11] MEDS: ALBUTEROL SO4 2.5/IPRATROPIUM 0.5 INH SOL 3 ML VIAL.NEB. NEB SCH ×3 (07:45→20:34)
[2019-10-11] MEDS ORDERED: EPOETIN ALFA 10,000 UNIT/1 ML VIAL IVPUSH ONE (08:00)
[2019-10-11] MEDS ORDERED: SODIUM CHLORIDE 250 ML IV PRN (08:56)
[2019-10-11 09:07] LABS: BASO % 0.2 % (0-2.0); HEMOGLOBIN 11.5 GM/dL (10.7-15.3); LYMPH % 9.4 % (8-40); MCH 25.5 pg (25.7-33.7); MCHC 31.8 g/dl (32.0-36.0); MEAN CELL VOLUME 80.2 fl (80-96); MEAN PLT VOLUME 9.6 fl (7.5-11.1); MONO % 9.6 % (3.8-10.2); NEUT % 78.8 % (42.8-82.8); PLATELET COUNT 256 K/MM3 (134-434); RBC 4.49 M/mm3 (3.60-5.2); RDW 18.4 % (11.6-15.6); WHITE BLOOD COUNT 12.5 K/mm3 (4.0-10.0)
--- NOTE | 2019-10-11 09:10 | RAPID ---
Physical Examination Vital Signs: Vital Signs Temperature 98.2 F 10/11/19 06:00 Pulse Rate 60 10/11/19 07:20 Respiratory Rate 18 10/11/19 07:20 Blood Pressure 139/66 10/11/19 07:20 O2 Sat by Pulse Oximetry (%) 96 10/11/19 08:09 Rapid Response - Rapid Response Assessment: Rapid response was called overhead. Rapid team arrived at the bedside. The patient was undergoing dialysis when she was noted to be unresponsive by the dialysis nurse. Had bradycardia in the 40s. BP WNL. Patient was awoken and was awake, alert, and oriented x2. Blood sugar 172. Vitals Temp 97.2, HR 62, BP 150/91, 97% sat on NC 3L PE Alert and oriented x2 Cardiac: RRR Pulm: Crackles throughout, no accessory muscle use. Abd: NDNT Neuro: Moves all extermities spontaneously, no focal neurological deficits Plan: Dialysis was stopped Contacted Dr. Marcus and spoke with dialysis nurse. Per, Dr. Marcus to restart dialysis. Communicated with nursing staff
[2019-10-11 09:48] LABS: ALBUMIN 3.3 g/dl (3.4-5.0); BILIRUBIN,TOTAL 0.6 mg/dL (0.2-1); BLOOD UREA NITROGEN 97.4 mg/dL (7-18); CALCIUM 7.9 mg/dL (8.5-10.1); MAGNESIUM 2.3 mg/dL (1.8-2.4); POTASSIUM 4.1 mmol/L (3.5-5.1); TOT PROT 6.6 g/dl (6.4-8.2)
[2019-10-11 09:51] LABS: CREATININE 7.4 mg/dL (0.55-1.3)
[2019-10-11] MEDS ORDERED: DEXTROSE 5%-WATER - 50 ML IVPB ONE ×2 (10:04→10:05)
[2019-10-11] MEDS ORDERED: cefTRIAXone SODIUM 1 GM VIAL ONE ×2 (10:04→10:05)
--- NOTE | 2019-10-11 10:54 | PN ---
Progress Note, Physician Chief Complaint: pr is now doing well, in the morning had rapid response, her pulse was in 40,s and also was unresponsive for a few mins, was breathing, and also had pulse and bp was normal, then revived, rapid response team discuseed with the nephrology and HD was resumed, - Current Medication List Current Medications: Active Medications Acetaminophen (Tylenol -) 650 mg PO Q6H PRN PRN Reason: PAIN LEVEL 7 - 10 Last Admin: 10/10/19 19:02 Dose: 650 mg Albuterol Sulfate (Ventolin 0.083% Nebulizer Soln -) 1 amp NEB RQ4H PRN PRN Reason: SHORT OF BREATH/WHEEZING Albuterol/Ipratropium (Duoneb -) 1 amp NEB RTID [facility] Last Admin: 10/11/19 07:45 Dose: 1 amp Aspirin (Asa -) 81 mg PO DAILY [facility] Last Admin: 10/10/19 09:47 Dose: 81 mg Atorvastatin Calcium (Lipitor -) 10 mg PO HS [facility] Last Admin: 10/10/19 21:15 Dose: 10 mg Clopidogrel Bisulfate (Plavix -) 75 mg PO DAILY [facility] Last Admin: 10/10/19 09:47 Dose: 75 mg Docusate Sodium (Colace -) 100 mg PO HS [facility] Last Admin: 10/10/19 21:15 Dose: 100 mg Gabapentin (Neurontin -) 100 mg PO BID [facility] Last Admin: 10/10/19 21:15 Dose: 100 mg Heparin Sodium (Porcine) (Heparin -) 5,000 unit SQ TID [facility] Last Admin: 10/11/19 05:44 Dose: 5,000 unit Azithromycin (Zithromax 500mg Ivpb (Pre-Docked)) 500 mg in 250 mls @ 250 mls/ hr IVPB DAILY [facility] Last Admin: 10/10/19 09:48 Dose: 250 mls/hr Ceftriaxone Sodium 1 gm/ (Dextrose) 50 mls @ 100 mls/hr IVPB DAILY [facility] Last Admin: 10/10/19 09:46 Dose: 100 mls/hr Insulin Aspart (Novolog Vial Sliding Scale -) 1 vial SQ [facility]; Protocol Last Admin: 10/11/19 07:06 Dose: 6 units Insulin Detemir (Levemir Vial) 15 units SQ [facility] Last Admin: 10/10/19 21:15 Dose: 15 units Insulin Detemir (Levemir Vial) 15 units SQ AM [facility] Last Admin: 10/11/19 07:05 Dose: 15 units Labetalol HCl (Normodyne -) 200 mg PO TID [facility] Last Admin: 10/11/19 05:44 Dose: 200 mg Losartan Potassium (Cozaar -) 25 mg PO DAILY [facility] Last Admin: 10/10/19 09:47 Dose: 25 mg Nifedipine (Procardia Xl -) 60 mg PO DAILY [facility] Last Admin: 10/10/19 09:47 Dose: 60 mg Pantoprazole Sodium (Protonix -) 40 mg PO DAILY [facility] Last Admin: 10/10/19 09:47 Dose: 40 mg - Objective Vital Signs: Vital Signs Temperature 98.2 F 10/11/19 06:00 Pulse Rate 60 10/11/19 10:15 Respiratory Rate 20 10/11/19 10:15 Blood Pressure 117/61 10/11/19 10:15 O2 Sat by Pulse Oximetry (%) 96 10/11/19 08:09 Constitutional: Yes: Well Nourished Eyes: Yes: Conjunctiva Clear, EOM Intact HENT: Yes: Normocephalic Neck: Yes: WNL, Supple Cardiovascular: Yes: Regular Rate and Rhythm, Bradycardia Respiratory: Yes: Regular, Other (harsh bs.) Gastrointestinal: Yes: Normal Bowel Sounds, Soft Extremities: Yes: WNL Neurological: Yes: WNL ...Motor Strength: WNL Labs: CBC, BMP 10/11/19 07:15 10/11/19 07:15 Impression/Plan Impression/Plan: - Problems (1) Acute and chronic respiratory failure with hypoxia Assessment/Plan: off of steroids c/w azithromycin/ceftriaxone. clinically improved, no CT chest needed Code(s): J96.21 - ACUTE AND CHRONIC RESPIRATORY FAILURE WITH HYPOXIA pt had rapid response today, was unresponsive during hd for a few seconds, and pulse was 40, BP was 150/91, sat 95%, and got better , was attended by the rapid response team, hold av blockers nfedipine, and labetalol , called the cardiology, and will get ekg, and also serial of cardiac markers, (2) Pneumonia Assessment/Plan: on empiric antibiotics ID following Code(s): J18.9 - PNEUMONIA, UNSPECIFIED ORGANISM Qualifiers: Pneumonia type: due to unspecified organism Laterality: left Lung location: lower lobe of lung Qualified Code(s): J18.9 - Pneumonia, unspecified organism (3) Hypoxia Assessment/Plan: supplemental O2 to keep Spo2 >90% c/w antibiotic solumedrol stopped, monitor off c/w inhaled bronchodilators BiPap prn Code(s): R09.02 - HYPOXEMIA (4) ESRD (end stage renal disease) on dialysis Assessment/Plan: dialysis yesterday renal following Code(s): N18.6 - END STAGE RENAL DISEASE; Z99.2 - DEPENDENCE ON RENAL DIALYSIS (5) AV fistula Code(s): I77.0 - ARTERIOVENOUS FISTULA, ACQUIRED (6) Sepsis Code(s): A41.9 - SEPSIS, UNSPECIFIED ORGANISM (7) Anemia Assessment/Plan: monitor with daily labs Code(s): D64.9 - ANEMIA, UNSPECIFIED (8) Diabetes Assessment/Plan: BGM elevated pm levemir increased sliding scale increased diabetic diet Code(s): E11.9 - TYPE 2 DIABETES MELLITUS WITHOUT COMPLICATIONS (9) Prophylactic measure Assessment/Plan: FEN HD yesterday monitor electrolytes daily weights no additional IVF diabetic/renal diet DVT heparin sq Visit type - Emergency Visit Emergency Visit: No - New Patient This patient is new to me today: Yes Date on this admission: 10/11/19 - Critical Care Critical Care patient: No - Discharge Referral Referred to [facility] No
[2019-10-11] MEDS: PANTOPRAZOLE 40 MG TABLET (FP) PO SCH (11:41)
[2019-10-11] MEDS: GABAPENTIN 100 MG CAPSULE (FP) PO SCH ×2 (11:41→21:44)
[2019-10-11] MEDS: CLOPIDOGREL BISULFATE 75 MG TABLET (FP) PO SCH (11:41)
[2019-10-11] MEDS: CEFTRIAXONE 1 GM in DEXTROSE 5%-WATER - 50 ML IVPB SCH (11:42)
[2019-10-11] MEDS: ASPIRIN 81 MG CHEWABLE TABLETS PO SCH (11:42)
[2019-10-11] MEDS: LOSARTAN POTASSIUM 25 MG TABLET PO SCH (11:42)
[2019-10-11] MEDS: ACETAMINOPHEN 325 MG TABLET (FP) PO PRN (11:42)
--- NOTE | 2019-10-11 12:40 | PN ---
Progress Note (short form) - Note Progress Note: RENAL Pt had a rapid response during dialysis and her orders had to be changed. Apparently, she had breakfast and this contributed to her symptoms. She was bradycardic (perhaps a vagal response) Last Vital Signs Temp Pulse Resp BP Pulse Ox 98 F 58 L 18 165/68 96 10/11/19 11:59 10/11/19 11:59 10/11/19 11:59 10/11/19 11:59 10/11/19 11:50 lungs crackles at left base noted cvs s1s2 rr +JAEL abd soft ext _edema neuro a+ox3 CBC, BMP 10/11/19 07:15 10/11/19 07:15 Current Medications Generic Name Dose Route Start Last Admin Trade Name Freq PRN Reason Stop Dose Admin Acetaminophen 650 mg 10/10/19 18:43 10/11/19 11:42 Tylenol - PO 650 mg Q6H PRN Administration PAIN LEVEL 7 - 10 Albuterol Sulfate 1 amp 10/07/19 12:38 Ventolin 0.083% Nebulizer Soln - NEB RQ4H PRN SHORT OF BREATH/WHEEZING Albuterol/Ipratropium 1 amp 10/07/19 14:00 10/11/19 07:45 Duoneb - NEB 1 amp RTID [facility] Administration Aspirin 81 mg 10/07/19 10:00 10/11/19 11:42 Asa - PO 81 mg DAILY [facility] Administration Atorvastatin Calcium 10 mg 10/07/19 22:00 10/10/19 21:15 Lipitor - PO 10 mg HS [facility] Administration Clopidogrel Bisulfate 75 mg 10/07/19 10:00 10/11/19 11:41 Plavix - PO 75 mg DAILY [facility] Administration Docusate Sodium 100 mg 10/07/19 22:00 10/10/19 21:15 Colace - PO 100 mg HS [facility] Administration Gabapentin 100 mg 10/07/19 10:00 10/11/19 11:41 Neurontin - PO 100 mg BID [facility] Administration Heparin Sodium (Porcine) 5,000 unit 10/07/19 06:00 10/11/19 05:44 Heparin - SQ 5,000 unit TID [facility] Administration Azithromycin 500 mg in 250 mls @ 250 mls/hr 10/07/19 10:00 10/10/19 09:48 Zithromax 500mg Ivpb (Pre-Docked) IVPB 250 mls/hr DAILY [facility] Administration Ceftriaxone Sodium 1 gm/ 50 mls @ 100 mls/hr 10/07/19 10:00 10/11/19 11:42 Dextrose IVPB 100 mls/hr DAILY [facility] Administration Insulin Aspart 1 vial 10/09/19 22:00 10/11/19 11:59 Novolog Vial Sliding Scale - SQ 4 units ACHS [facility] Administration Protocol Insulin Detemir 15 units 10/08/19 12:53 10/10/19 21:15 Levemir Vial SQ 15 units HS [facility] Administration Insulin Detemir 15 units 10/10/19 07:00 10/11/19 07:05 Levemir Vial SQ 15 units AM [facility] Administration Labetalol HCl 200 mg 10/07/19 06:00 10/11/19 05:44 Normodyne - PO 200 mg TID [facility] Administration Losartan Potassium 25 mg 10/09/19 14:00 10/11/19 11:42 Cozaar - PO 25 mg DAILY [facility] Administration Nifedipine 60 mg 10/07/19 10:00 10/10/19 09:47 Procardia Xl - PO 60 mg DAILY [facility] Administration Pantoprazole Sodium 40 mg 10/07/19 10:00 10/11/19 11:41 Protonix - PO 40 mg DAILY [facility] Administration 73 year old woman with history of ESRD on HD (TTS), diastolic HF, COPD who presented with cough and fever and admitted for URI +/- volume overload. 1. ESRD on HD 2. Hyperkalemia 3. Hyponatremia 4. URI/Fever 5. Mild pulmonary congestion 6. Anemia cautious use of labetalol at this point since she became bradycardic dialysis bath switched to 3 k repeat chest xray and EKG dc zithromax after todays dose especially considering qt prolongation MV
[2019-10-11 12:48] LABS: ANISOCYTOSIS 1+; MACROCYTOSIS 1+; PLATELET ESTIMATE NORMAL
--- NOTE | 2019-10-11 12:48 | PN ---
Progress Note, Physician History of Present Illness: Events noted. Rapid response was called earlier today when noted to be unresponsive and bradycardic by HD nurse. BP remained stable and pt was revived prior to resuming HD. Currently pt is fully alert, without respiratory distress , states she feels better, less cough. - Current Medication List Current Medications: Active Medications Acetaminophen (Tylenol -) 650 mg PO Q6H PRN PRN Reason: PAIN LEVEL 7 - 10 Last Admin: 10/11/19 11:42 Dose: 650 mg Albuterol Sulfate (Ventolin 0.083% Nebulizer Soln -) 1 amp NEB RQ4H PRN PRN Reason: SHORT OF BREATH/WHEEZING Albuterol/Ipratropium (Duoneb -) 1 amp NEB RTID [facility] Last Admin: 10/11/19 07:45 Dose: 1 amp Aspirin (Asa -) 81 mg PO DAILY [facility] Last Admin: 10/11/19 11:42 Dose: 81 mg Atorvastatin Calcium (Lipitor -) 10 mg PO HS [facility] Last Admin: 10/10/19 21:15 Dose: 10 mg Clopidogrel Bisulfate (Plavix -) 75 mg PO DAILY [facility] Last Admin: 10/11/19 11:41 Dose: 75 mg Docusate Sodium (Colace -) 100 mg PO HS [facility] Last Admin: 10/10/19 21:15 Dose: 100 mg Gabapentin (Neurontin -) 100 mg PO BID [facility] Last Admin: 10/11/19 11:41 Dose: 100 mg Heparin Sodium (Porcine) (Heparin -) 5,000 unit SQ TID [facility] Last Admin: 10/11/19 05:44 Dose: 5,000 unit Azithromycin (Zithromax 500mg Ivpb (Pre-Docked)) 500 mg in 250 mls @ 250 mls/ hr IVPB DAILY [facility] Last Admin: 10/10/19 09:48 Dose: 250 mls/hr Ceftriaxone Sodium 1 gm/ (Dextrose) 50 mls @ 100 mls/hr IVPB DAILY [facility] Last Admin: 10/11/19 11:42 Dose: 100 mls/hr Insulin Aspart (Novolog Vial Sliding Scale -) 1 vial SQ [facility]; Protocol Last Admin: 10/11/19 11:59 Dose: 4 units Insulin Detemir (Levemir Vial) 15 units SQ [facility] Last Admin: 10/10/19 21:15 Dose: 15 units Insulin Detemir (Levemir Vial) 15 units SQ AM [facility] Last Admin: 10/11/19 07:05 Dose: 15 units Labetalol HCl (Normodyne -) 200 mg PO TID [facility] Last Admin: 10/11/19 05:44 Dose: 200 mg Losartan Potassium (Cozaar -) 25 mg PO DAILY [facility] Last Admin: 10/11/19 11:42 Dose: 25 mg Nifedipine (Procardia Xl -) 60 mg PO DAILY [facility] Last Admin: 10/10/19 09:47 Dose: 60 mg Pantoprazole Sodium (Protonix -) 40 mg PO DAILY [facility] Last Admin: 10/11/19 11:41 Dose: 40 mg - Objective Vital Signs: Vital Signs Temperature 98 F 10/11/19 11:59 Pulse Rate 58 L 10/11/19 11:59 Respiratory Rate 18 10/11/19 11:59 Blood Pressure 165/68 10/11/19 11:59 O2 Sat by Pulse Oximetry (%) 96 10/11/19 11:50 Constitutional: Yes: No Distress, Calm Cardiovascular: Yes: Regular Rate and Rhythm Respiratory: Yes: CTA Bilaterally Gastrointestinal: Yes: Normal Bowel Sounds, Soft Extremities: Yes: WNL Integumentary: Yes: WNL Neurological: Yes: Alert Labs: CBC, BMP 10/11/19 07:15 10/11/19 07:15 Microbiology 10/06/19 22:05 Blood - Peripheral Venous Blood Culture - Preliminary NO GROWTH OBTAINED AFTER 96 HOURS, INCUBATION TO CONTINUE FOR 1 DAYS. 10/06/19 22:05 Blood - Peripheral Venous Blood Culture - Preliminary NO GROWTH OBTAINED AFTER 96 HOURS, INCUBATION TO CONTINUE FOR 1 DAYS. 10/06/19 22:05 Throat Throat Culture - Final NO BETA HEMOLYTIC STREPTOCOCCI ISOLATED - ....Imaging Chest X-ray: Report Reviewed Problem List - Problems (1) Acute and chronic respiratory failure with hypoxia Code(s): J96.21 - ACUTE AND CHRONIC RESPIRATORY FAILURE WITH HYPOXIA (2) Anemia Code(s): D64.9 - ANEMIA, UNSPECIFIED (3) ESRD (end stage renal disease) on dialysis Code(s): N18.6 - END STAGE RENAL DISEASE; Z99.2 - DEPENDENCE ON RENAL DIALYSIS (4) Acute on chronic diastolic (congestive) heart failure Code(s): I50.33 - ACUTE ON CHRONIC DIASTOLIC (CONGESTIVE) HEART FAILURE (5) Anemia Code(s): D64.9 - ANEMIA, UNSPECIFIED Qualifiers: Anemia type: unspecified type Qualified Code(s): D64.9 - Anemia, unspecified (6) Diabetes type 2, controlled Code(s): E11.9 - TYPE 2 DIABETES MELLITUS WITHOUT COMPLICATIONS Qualifiers: Diabetes mellitus complication status: with kidney complications Chronic kidney disease stage: stage 5, not on chronic dialysis (7) Paroxysmal atrial fibrillation Code(s): I48.0 - PAROXYSMAL ATRIAL FIBRILLATION (8) End stage renal disease Code(s): N18.6 - END STAGE RENAL DISEASE (9) Hyperlipidemia Code(s): E78.5 - HYPERLIPIDEMIA, UNSPECIFIED Qualifiers: Hyperlipidemia type: pure hypercholesterolemia Qualified Code(s): E78.00 - Pure hypercholesterolemia, unspecified; E78.0 - Pure hypercholesterolemia (10) Hypertension Code(s): I10 - ESSENTIAL (PRIMARY) HYPERTENSION Qualifiers: Hypertension type: essential hypertension Qualified Code(s): I10 - Essential (primary) hypertension Assessment/Plan -- d/c azithromycin -- continue Ceftriaxone, switch to Augmentin tomorrow x 2 days -- Pt currently without respiratory distress, remains afebrile/alert
[2019-10-11] MEDS: AZITHROMYCIN IVPB 500 MG/250 ML BAG IVPB SCH (13:00)
--- NOTE | 2019-10-11 13:00 | PN ---
Progress Note (short form) - Note Progress Note: Events noted. FAMILY [employer]IST this AM. Now awake and alert. Reports breathing is improving. Minimal cough. No acute events overnight. Intake & Output 10/08/19 10/09/19 10/10/19 10/11/19 23:59 23:59 23:59 23:59 Intake Total 6609 050 8852 1370 Output Total 2500 Balance 9230 814 6146 -1130 Weight 143 lb 12.8 oz 147 lb 2 oz Last Vital Signs Temp Pulse Resp BP Pulse Ox 98 F 58 L 18 165/68 96 10/11/19 11:59 10/11/19 11:59 10/11/19 11:59 10/11/19 11:59 10/11/19 11:50 Active Medications Acetaminophen (Tylenol -) 650 mg PO Q6H PRN PRN Reason: PAIN LEVEL 7 - 10 Last Admin: 10/11/19 11:42 Dose: 650 mg Albuterol Sulfate (Ventolin 0.083% Nebulizer Soln -) 1 amp NEB RQ4H PRN PRN Reason: SHORT OF BREATH/WHEEZING Albuterol/Ipratropium (Duoneb -) 1 amp NEB RTID [facility] Last Admin: 10/11/19 07:45 Dose: 1 amp Aspirin (Asa -) 81 mg PO DAILY [facility] Last Admin: 10/11/19 11:42 Dose: 81 mg Atorvastatin Calcium (Lipitor -) 10 mg PO HS [facility] Last Admin: 10/10/19 21:15 Dose: 10 mg Clopidogrel Bisulfate (Plavix -) 75 mg PO DAILY [facility] Last Admin: 10/11/19 11:41 Dose: 75 mg Docusate Sodium (Colace -) 100 mg PO HS [facility] Last Admin: 10/10/19 21:15 Dose: 100 mg Gabapentin (Neurontin -) 100 mg PO BID [facility] Last Admin: 10/11/19 11:41 Dose: 100 mg Heparin Sodium (Porcine) (Heparin -) 5,000 unit SQ TID [facility] Last Admin: 10/11/19 05:44 Dose: 5,000 unit Ceftriaxone Sodium 1 gm/ (Dextrose) 50 mls @ 100 mls/hr IVPB DAILY [facility] Last Admin: 10/11/19 11:42 Dose: 100 mls/hr Insulin Aspart (Novolog Vial Sliding Scale -) 1 vial SQ ACHS [facility]; Protocol Last Admin: 10/11/19 11:59 Dose: 4 units Insulin Detemir (Levemir Vial) 15 units SQ HS [facility] Last Admin: 10/10/19 21:15 Dose: 15 units Insulin Detemir (Levemir Vial) 15 units SQ AM [facility] Last Admin: 10/11/19 07:05 Dose: 15 units Labetalol HCl (Normodyne -) 200 mg PO TID [facility] Last Admin: 10/11/19 05:44 Dose: 200 mg Losartan Potassium (Cozaar -) 25 mg PO DAILY [facility] Last Admin: 10/11/19 11:42 Dose: 25 mg Nifedipine (Procardia Xl -) 60 mg PO DAILY [facility] Last Admin: 10/10/19 09:47 Dose: 60 mg Pantoprazole Sodium (Protonix -) 40 mg PO DAILY [facility] Last Admin: 10/11/19 11:41 Dose: 40 mg Gen: NAD at rest Heart: RRR Lung: decreased breath sounds at the bases Abd: soft, nontender Ext: no edema Laboratory Results - last 24 hr 10/10/19 10/10/19 10/11/19 16:54 21:12 05:41 WBC RBC Hgb Hct MCV MCH MCHC RDW Plt Count MPV Absolute Neuts (auto) Neutrophils % Lymphocytes % Monocytes % Eosinophils % Basophils % Nucleated RBC % Sodium Potassium Chloride Carbon Dioxide Anion Gap BUN Creatinine Est GFR (CKD-EPI)AfAm Est GFR (CKD-EPI)NonAf POC Glucometer 153 192 229 Random Glucose Calcium Magnesium Total Bilirubin AST ALT Alkaline Phosphatase Creatine Kinase Troponin I Total Protein Albumin 10/11/19 10/11/19 10/11/19 07:15 07:15 09:03 WBC 12.5 H RBC 4.49 Hgb 11.5 Hct 36.0 MCV 80.2 MCH 25.5 L MCHC 31.8 L RDW 18.4 H Plt Count 256 MPV 9.6 Absolute Neuts (auto) 9.9 H Neutrophils % 78.8 Lymphocytes % 9.4 Monocytes % 9.6 Eosinophils % 2.0 D Basophils % 0.2 Nucleated RBC % 0 Sodium 132 L Potassium 4.1 Chloride 93 L Carbon Dioxide 24 Anion Gap 14 BUN 97.4 H Creatinine 7.4 H* Est GFR (CKD-EPI)AfAm 5.76 Est GFR (CKD-EPI)NonAf 4.97 POC Glucometer 172 Random Glucose 162 H Calcium 7.9 L Magnesium 2.3 Total Bilirubin 0.6 AST 10 L ALT 22 Alkaline Phosphatase 139 H Creatine Kinase 79 Troponin I 0.03 Total Protein 6.6 Albumin 3.3 L 10/11/19 11:50 WBC RBC Hgb Hct MCV MCH MCHC RDW Plt Count MPV Absolute Neuts (auto) Neutrophils % Lymphocytes % Monocytes % Eosinophils % Basophils % Nucleated RBC % Sodium Potassium Chloride Carbon Dioxide Anion Gap BUN Creatinine Est GFR (CKD-EPI)AfAm Est GFR (CKD-EPI)NonAf POC Glucometer 191 Random Glucose Calcium Magnesium Total Bilirubin AST ALT Alkaline Phosphatase Creatine Kinase Troponin I Total Protein Albumin Problem List - Problems (1) Acute on chronic diastolic (congestive) heart failure Code(s): I50.33 - ACUTE ON CHRONIC DIASTOLIC (CONGESTIVE) HEART FAILURE A/P Acute on Chronic Hypoxic Respiratory Failure Acute on Chronic Diastolic Heart Failure ESRD on HD Pulmonary HTN Acute Bronchitis/URI r/o Pneumonia HTN DM COPD - HD per renal with ultrafiltration - daily weights - O2 to keep Spo2 >90% - on empiric antibiotics - monitor off medrol - inhaled bronchodilators - DVT prophylaxis Dr Haynes
--- NOTE | 2019-10-11 13:18 | CON.CARD ---
Consult Consult Specialty:: Cardiology Referred by:: Hospitalist Reason for Consultation:: Bradycardia during dialysis - History of Present Illness History of Present Illness: Patient is a 73 year old Sinhala speaking female with underlying history of HTN , DM, COPD with home O2, prior history of CVA, LV diastolic dysfunction currently compensated and ESRD on HD who presented initially with shortness of breath and productive cough, sore throat and fever. She was transferred to telemetry after rapid reponse during dialysis with bradycardia. She was found unresponsive and HR of 40's. Currently on telemetry unit, she is awake and alert. She denies chest pain, shortness of breath or palpitations. She denies fever or chills at this time. She denies nausea, vomiting, diarrhea or abdominal pain. She denies headache or lightheadedness. Cardiology consultation was called. - History Source History Provided By: Medical Record Limitations to Obtaining History: Language Barrier - Past Medical History NOTEMAN: Yes: CVA (describes old CVA w/ facial droop 8 years ago) Cardio/Vascular: Yes: CHF (chronic diastolic), HTN, Hyperlipdemia Pulmonary: Yes: COPD Renal/: Yes: Renal Failure, Hemodialysis Musculoskeletal: Yes: Chronic low back pain Endocrine: Yes: Diabetes Mellitus - Past Surgical History Past Surgical History: Yes: AV Fistula/Graft - Alcohol/Substance Use Hx Alcohol Use: No History of Substance Use: reports: None - Smoking History Smoking history: Former smoker Have you smoked in the past 12 months: No Aproximately how many cigarettes per day: 0 - Social History ADL: Independent History of Recent Travel: No Home Medications - Allergies Allergies/Adverse Reactions: Allergies Allergy/AdvReac Type Severity Reaction Status Date / Time No Known Allergies Allergy Verified 11/07/18 14:58 - Home Medications Home Medications: Ambulatory Orders Losartan Potassium 100 mg PO DAILY 01/08/17 Labetalol HCl [Normodyne -] 200 mg PO TID #90 tablet 10/25/17 Minoxidil [Loniten -] 10 mg PO HS #30 tablet 10/25/17 Nifedipine [Nifedipine ER] 60 mg PO BID 02/11/18 Calcium Acetate [Phoslo -] 667 mg PO TID 03/09/18 Docusate Sodium 100 mg PO HS 03/09/18 Gabapentin 100 mg PO HS 03/09/18 Insulin (Levemir) [Levemir Vial] 8 unit SQ AM 03/09/18 Insulin (Levemir) [Levemir Vial] 10 unit SQ HS 03/09/18 Oxycodone HCl/Acetaminophen [Percocet 5-325 mg Tablet] 2 tab PO Q6H PRN MDD 4 tabs 03/09/18 Pravastatin Sodium [Pravachol -] 20 mg PO HS 03/09/18 Ascorbic Acid [Vitamin C -] 500 mg PO DAILY tablet 04/24/18 Aspirin [ASA -] 81 mg PO DAILY tab.chew 04/24/18 Bacitracin - [Bacitracin Topical Ointment -] 1 applic TP DAILY #1 tube 04/24/18 Ferrous Sulfate [Feosol] 325 mg PO TIDCM ud 04/24/18 levoFLOXacin [Levaquin -] 250 mg PO Q48H #20 tablet 04/24/18 Clopidogrel Bisulfate [Plavix -] 75 mg PO DAILY 08/13/18 Docusate Sodium [Colace] 200 mg PO DAILY 08/13/18 Ferric Citrate [Auryxia] 2 tab PO TID 08/13/18 Gabapentin [Neurontin -] 100 mg PO BID 08/13/18 Glipizide [Glipizide ER] 5 mg PO DAILY 08/13/18 Insulin Detemir [Levemir Flextouch] 8 unit SQ DAILY 08/13/18 Labetalol HCl [Normodyne -] 200 mg PO TID 08/13/18 Lanthanum Carbonate [Fosrenol] 1,000 mg PO QID 08/13/18 Losartan Potassium 100 mg PO DAILY 08/13/18 Minoxidil [Loniten -] 10 mg PO HS 08/13/18 Nifedipine [Afeditab Cr] 30 mg PO BID 08/13/18 Nystatin Cream [Mycostatin] 1 applic TP BID 08/13/18 Oxycodone HCl/Acetaminophen [Percocet 5-325 mg Tablet] 1 tab PO Q6H PRN Pantoprazole Sodium 40 mg PO DAILY 08/13/18 Pravastatin Sodium [Pravachol] 20 mg PO HS 08/13/18 Clindamycin [Cleocin -] 900 mg PO TID #90 capsule 11/07/18 Review of Systems - Review of Systems Constitutional: denies: Chills, Fever Cardiovascular: reports: Shortness of Breath. denies: Chest Pain, Palpitations Respiratory: reports: Cough, SOB Gastrointestinal: denies: Abdominal Pain, Constipation, Diarrhea, Melena, Nausea , Rectal Bleeding, Vomiting Musculoskeletal: denies: Back Pain, Joint Pain Neurological: denies: Dizziness, Headache, Seizure, Syncope Vital Signs: Vital Signs Temperature 98 F 10/11/19 11:59 Pulse Rate 58 L 10/11/19 11:59 Respiratory Rate 18 10/11/19 11:59 Blood Pressure 165/68 10/11/19 11:59 O2 Sat by Pulse Oximetry (%) 96 10/11/19 11:50 Eyes: Yes: PERRL HENT: Yes: Atraumatic Neck: Yes: Supple Respiratory: Yes: CTA Bilaterally Gastrointestinal: Yes: Normal Bowel Sounds, Soft. No: Tenderness Cardiovascular: Yes: Regular Rate and Rhythm JVD: No PMI: Non-Displaced Heart Sounds: Yes: S1, S2 Edema: No - Other Data Labs, Other Data: CBC, BMP 10/11/19 07:15 10/11/19 07:15 Troponin, BNP 10/11/19 07:15 Troponin I 0.03 Laboratory Results - last 24 hr 10/11/19 10/11/19 10/11/19 07:15 07:15 09:03 WBC 12.5 H RBC 4.49 Hgb 11.5 Hct 36.0 MCV 80.2 MCH 25.5 L MCHC 31.8 L RDW 18.4 H Plt Count 256 MPV 9.6 Absolute Neuts (auto) 9.9 H Neutrophils % 78.8 Lymphocytes % 9.4 Monocytes % 9.6 Eosinophils % 2.0 D Basophils % 0.2 Nucleated RBC % 0 Sodium 132 L Potassium 4.1 Chloride 93 L Carbon Dioxide 24 Anion Gap 14 BUN 97.4 H Creatinine 7.4 H* Est GFR (CKD-EPI)AfAm 5.76 Est GFR (CKD-EPI)NonAf 4.97 POC Glucometer 172 Random Glucose 162 H Calcium 7.9 L Magnesium 2.3 Total Bilirubin 0.6 AST 10 L ALT 22 Alkaline Phosphatase 139 H Creatine Kinase 79 Troponin I 0.03 Total Protein 6.6 Albumin 3.3 L Normal sinus rhythm Imaging - Results Chest X-ray: Report Reviewed (Elevated right hemidiaphragm and large heart) EKG: Report Reviewed Problem List - Problems (1) Acute and chronic respiratory failure with hypoxia Code(s): J96.21 - ACUTE AND CHRONIC RESPIRATORY FAILURE WITH HYPOXIA (2) Anemia Code(s): D64.9 - ANEMIA, UNSPECIFIED (3) Pneumonia Code(s): J18.9 - PNEUMONIA, UNSPECIFIED ORGANISM Qualifiers: Pneumonia type: due to unspecified organism Laterality: left Lung location: lower lobe of lung Qualified Code(s): J18.9 - Pneumonia, unspecified organism (4) ESRD (end stage renal disease) on dialysis Code(s): N18.6 - END STAGE RENAL DISEASE; Z99.2 - DEPENDENCE ON RENAL DIALYSIS (5) Acute on chronic diastolic (congestive) heart failure Code(s): I50.33 - ACUTE ON CHRONIC DIASTOLIC (CONGESTIVE) HEART FAILURE (6) Anemia Code(s): D64.9 - ANEMIA, UNSPECIFIED Qualifiers: Anemia type: unspecified type Qualified Code(s): D64.9 - Anemia, unspecified (7) Diabetes type 2, controlled Code(s): E11.9 - TYPE 2 DIABETES MELLITUS WITHOUT COMPLICATIONS Qualifiers: Diabetes mellitus complication status: with kidney complications Chronic kidney disease stage: stage 5, not on chronic dialysis (8) Hyperlipidemia Code(s): E78.5 - HYPERLIPIDEMIA, UNSPECIFIED Qualifiers: Hyperlipidemia type: pure hypercholesterolemia Qualified Code(s): E78.00 - Pure hypercholesterolemia, unspecified; E78.0 - Pure hypercholesterolemia (9) Hypertension Code(s): I10 - ESSENTIAL (PRIMARY) HYPERTENSION Qualifiers: Hypertension type: essential hypertension Qualified Code(s): I10 - Essential (primary) hypertension (10) Bradycardia Code(s): R00.1 - BRADYCARDIA, UNSPECIFIED Assessment/Plan 1. Sinus bradycardia with episode of LOC, etiology not determined 2. ESRD on HD 3. COPD 4. HTN 5. Hypercholesterolemia 6. DM 7. LV diastolic dysfunction currently euvolemic 8. Pneumonia PLAN: 1. Transferred to telemetry. Monitor unremarkable 2. Currently on Procardia XL 60 mg QD, Losartan 25 mg QD and Labetalol 200 mg TID (to be used with caution in view of episode of bradycardia) 3. Continue ASA 81 mg QD, but unclear as to reason for Plavix 4. Continue statin therapy 5. HD as per renal service. Monitor renal function and electrolytes 6. Antibiotic coverage 7. Echocardiography to assess LV/RV and valvular function if not done recently Further plans are to follow Walker Miranda MD
[2019-10-11] MEDS ORDERED: NIFEdipine E.R 60 MG TABLET (UD) PO ONE (19:07)
[2019-10-11] MEDS: DOCUSATE SODIUM 100 MG CAPSULE (FP) PO SCH (21:44)
[2019-10-11] MEDS: ATORVASTATIN CA 10 MG TABLET (FP) PO SCH (21:44)
--- NOTE | 2019-10-11 23:08 | EKG ---
Test Reason : Blood Pressure : / mmHG Vent. Rate : 062 BPM Atrial Rate : 062 BPM P-R Int : 186 ms QRS Dur : 122 ms QT Int : 456 ms P-R-T Axes : 055 -69 076 degrees QTc Int : 462 ms NORMAL SINUS RHYTHM LEFT ANTERIOR FASCICULAR BLOCK ABNORMAL ECG WHEN COMPARED WITH ECG OF 06-OCT-2019 22:24, NO SIGNIFICANT CHANGE WAS FOUND Confirmed by RAIN NEIL, CHLOE ([id number]) on 10/11/2019 11:08:03 PM Referred By: Ivon CRAIG Confirmed By:CHLOE RODRIGEZ MD
[2019-10-12] MEDS: INSULIN SLIDING SCALE (NOVOLOG) 1 VIAL SQ SCH ×4 (06:17→21:12)
[2019-10-12] MEDS: INSULIN (LEVEMIR) 100 UNITS/ML UNITS SQ SCH ×2 (06:17→21:12)
[2019-10-12] MEDS: HEPARIN NA (PORCINE) 5,000 UNITS/ML 1ML VIAL SQ SCH ×3 (06:17→21:12)
[2019-10-12] MEDS: ALBUTEROL SO4 2.5/IPRATROPIUM 0.5 INH SOL 3 ML VIAL.NEB. NEB SCH ×3 (07:50→20:30)
[2019-10-12] MEDS ORDERED: DEXTROSE 5%-WATER - 50 ML IVPB ONE (09:09)
[2019-10-12] MEDS ORDERED: cefTRIAXone SODIUM 1 GM VIAL ONE (09:09)
[2019-10-12] MEDS: LOSARTAN POTASSIUM 25 MG TABLET PO SCH (09:10)
[2019-10-12] MEDS: ASPIRIN 81 MG CHEWABLE TABLETS PO SCH (09:10)
[2019-10-12] MEDS: PANTOPRAZOLE 40 MG TABLET (FP) PO SCH (09:10)
[2019-10-12] MEDS: GABAPENTIN 100 MG CAPSULE (FP) PO SCH ×2 (09:10→21:11)
[2019-10-12] MEDS: CLOPIDOGREL BISULFATE 75 MG TABLET (FP) PO SCH (09:11)
[2019-10-12] MEDS: CEFTRIAXONE 1 GM in DEXTROSE 5%-WATER - 50 ML IVPB SCH (09:16)
--- NOTE | 2019-10-12 10:23 | PN ---
Progress Note, Physician Chief Complaint: Not in distress History of Present Illness: Patient was seen and examined. Awake and alert. Chart was reviewed Denies chest pain, SOB or palpitations - Current Medication List Current Medications: Active Medications Acetaminophen (Tylenol -) 650 mg PO Q6H PRN PRN Reason: PAIN LEVEL 7 - 10 Last Admin: 10/11/19 11:42 Dose: 650 mg Albuterol Sulfate (Ventolin 0.083% Nebulizer Soln -) 1 amp NEB RQ4H PRN PRN Reason: SHORT OF BREATH/WHEEZING Albuterol/Ipratropium (Duoneb -) 1 amp NEB RTID [facility] Last Admin: 10/12/19 07:50 Dose: 1 amp Aspirin (Asa -) 81 mg PO DAILY [facility] Last Admin: 10/12/19 09:10 Dose: 81 mg Atorvastatin Calcium (Lipitor -) 10 mg PO HS [facility] Last Admin: 10/11/19 21:44 Dose: 10 mg Clopidogrel Bisulfate (Plavix -) 75 mg PO DAILY [facility] Last Admin: 10/12/19 09:11 Dose: 75 mg Docusate Sodium (Colace -) 100 mg PO HS [facility] Last Admin: 10/11/19 21:44 Dose: 100 mg Gabapentin (Neurontin -) 100 mg PO BID [facility] Last Admin: 10/12/19 09:10 Dose: 100 mg Heparin Sodium (Porcine) (Heparin -) 5,000 unit SQ TID [facility] Last Admin: 10/12/19 06:17 Dose: 5,000 unit Ceftriaxone Sodium 1 gm/ (Dextrose) 50 mls @ 100 mls/hr IVPB DAILY [facility] Last Admin: 10/12/19 09:16 Dose: 100 mls/hr Insulin Aspart (Novolog Vial Sliding Scale -) 1 vial SQ ACHS [facility]; Protocol Last Admin: 10/12/19 06:17 Dose: 4 units Insulin Detemir (Levemir Vial) 15 units SQ HS [facility] Last Admin: 10/11/19 21:45 Dose: 15 units Insulin Detemir (Levemir Vial) 15 units SQ AM [facility] Last Admin: 10/12/19 06:17 Dose: 15 units Labetalol HCl (Normodyne -) 200 mg PO TID [facility] Last Admin: 10/11/19 05:44 Dose: 200 mg Losartan Potassium (Cozaar -) 25 mg PO DAILY [facility] Last Admin: 10/12/19 09:10 Dose: 25 mg Nifedipine (Procardia Xl -) 60 mg PO DAILY [facility] Last Admin: 10/10/19 09:47 Dose: 60 mg Pantoprazole Sodium (Protonix -) 40 mg PO DAILY [facility] Last Admin: 10/12/19 09:10 Dose: 40 mg - Objective Vital Signs: Vital Signs Temperature 97.4 F L 10/12/19 06:01 Pulse Rate 64 10/12/19 06:01 Respiratory Rate 20 10/12/19 06:01 Blood Pressure 162/66 10/12/19 06:01 O2 Sat by Pulse Oximetry (%) 97 10/12/19 07:49 Eyes: Yes: PERRL HENT: Yes: Atraumatic Neck: Yes: Supple Cardiovascular: Yes: Regular Rate and Rhythm, S2 Respiratory: Yes: CTA Bilaterally Gastrointestinal: Yes: Normal Bowel Sounds, Soft. No: Tenderness Edema: No Additional Findings/Remarks: - Review of Systems Constitutional: denies: Chills, Fever Cardiovascular: reports: Shortness of Breath. denies: Chest Pain, Palpitations Respiratory: reports: Cough, SOB Gastrointestinal: denies: Abdominal Pain, Constipation, Diarrhea, Melena, Nausea , Rectal Bleeding, Vomiting Musculoskeletal: denies: Back Pain, Joint Pain Neurological: denies: Dizziness, Headache, Seizure, Syncope Labs: CBC, BMP 10/11/19 07:15 10/11/19 07:15 Problem List - Problems (1) Acute and chronic respiratory failure with hypoxia Code(s): J96.21 - ACUTE AND CHRONIC RESPIRATORY FAILURE WITH HYPOXIA (2) Anemia Code(s): D64.9 - ANEMIA, UNSPECIFIED (3) Pneumonia Code(s): J18.9 - PNEUMONIA, UNSPECIFIED ORGANISM Qualifiers: Pneumonia type: due to unspecified organism Laterality: left Lung location: lower lobe of lung Qualified Code(s): J18.9 - Pneumonia, unspecified organism (4) ESRD (end stage renal disease) on dialysis Code(s): N18.6 - END STAGE RENAL DISEASE; Z99.2 - DEPENDENCE ON RENAL DIALYSIS (5) Acute on chronic diastolic (congestive) heart failure Code(s): I50.33 - ACUTE ON CHRONIC DIASTOLIC (CONGESTIVE) HEART FAILURE (6) Anemia Code(s): D64.9 - ANEMIA, UNSPECIFIED Qualifiers: Anemia type: unspecified type Qualified Code(s): D64.9 - Anemia, unspecified (7) Diabetes type 2, controlled Code(s): E11.9 - TYPE 2 DIABETES MELLITUS WITHOUT COMPLICATIONS Qualifiers: Diabetes mellitus complication status: with kidney complications Chronic kidney disease stage: stage 5, not on chronic dialysis (8) Hyperlipidemia Code(s): E78.5 - HYPERLIPIDEMIA, UNSPECIFIED Qualifiers: Hyperlipidemia type: pure hypercholesterolemia Qualified Code(s): E78.00 - Pure hypercholesterolemia, unspecified; E78.0 - Pure hypercholesterolemia (9) Hypertension Code(s): I10 - ESSENTIAL (PRIMARY) HYPERTENSION Qualifiers: Hypertension type: essential hypertension Qualified Code(s): I10 - Essential (primary) hypertension (10) Bradycardia Code(s): R00.1 - BRADYCARDIA, UNSPECIFIED Assessment/Plan 1. Sinus bradycardia with episode of LOC, etiology not determined 2. ESRD on HD 3. COPD 4. HTN 5. Hypercholesterolemia 6. DM 7. LV diastolic dysfunction currently euvolemic 8. Pneumonia PLAN: 1. Transferred to telemetry. Monitor unremarkable so far 2. Increase Procardia XL to 90 mg QD, Losartan to 50 mg QD and Labetalol 200 mg TID (to be used with caution in view of episode of bradycardia). Continue Hydralazine 10 mg TID which was started today. Uptitrate 3. Continue ASA 81 mg QD, but unclear as to reason for Plavix 4. Continue statin therapy 5. HD as per renal service. Monitor renal function and electrolytes 6. Antibiotic coverage 7. Echocardiography to assess LV/RV and valvular function if not done recently Further plans are to follow Walker Miranda MD
--- NOTE | 2019-10-12 13:00 | PN ---
Progress Note (short form) - Note Progress Note: Events noted. Reports breathing is improving. Minimal cough. No acute events overnight. Intake & Output 10/09/19 10/10/19 10/11/19 10/12/19 23:59 23:59 23:59 23:59 Intake Total 240 1830 2820 370 Output Total 2500 Balance 240 1830 320 370 Weight 147 lb 2 oz 153 lb 8 oz Last Vital Signs Temp Pulse Resp BP Pulse Ox 98.4 F 65 18 172/69 H 98 10/12/19 10:00 10/12/19 10:00 10/12/19 10:00 10/12/19 10:00 10/12/19 11:57 Active Medications Acetaminophen (Tylenol -) 650 mg PO Q6H PRN PRN Reason: PAIN LEVEL 7 - 10 Last Admin: 10/11/19 11:42 Dose: 650 mg Albuterol Sulfate (Ventolin 0.083% Nebulizer Soln -) 1 amp NEB RQ4H PRN PRN Reason: SHORT OF BREATH/WHEEZING Albuterol/Ipratropium (Duoneb -) 1 amp NEB RTID [facility] Last Admin: 10/12/19 07:50 Dose: 1 amp Aspirin (Asa -) 81 mg PO DAILY [facility] Last Admin: 10/12/19 09:10 Dose: 81 mg Atorvastatin Calcium (Lipitor -) 10 mg PO HS [facility] Last Admin: 10/11/19 21:44 Dose: 10 mg Clopidogrel Bisulfate (Plavix -) 75 mg PO DAILY [facility] Last Admin: 10/12/19 09:11 Dose: 75 mg Docusate Sodium (Colace -) 100 mg PO HS [facility] Last Admin: 10/11/19 21:44 Dose: 100 mg Gabapentin (Neurontin -) 100 mg PO BID [facility] Last Admin: 10/12/19 09:10 Dose: 100 mg Heparin Sodium (Porcine) (Heparin -) 5,000 unit SQ TID [facility] Last Admin: 10/12/19 06:17 Dose: 5,000 unit Ceftriaxone Sodium 1 gm/ (Dextrose) 50 mls @ 100 mls/hr IVPB DAILY [facility] Last Admin: 10/12/19 09:16 Dose: 100 mls/hr Insulin Aspart (Novolog Vial Sliding Scale -) 1 vial SQ ACHS [facility]; Protocol Last Admin: 10/12/19 11:20 Dose: 6 units Insulin Detemir (Levemir Vial) 15 units SQ HS [facility] Last Admin: 10/11/19 21:45 Dose: 15 units Insulin Detemir (Levemir Vial) 15 units SQ AM [facility] Last Admin: 10/12/19 06:17 Dose: 15 units Labetalol HCl (Normodyne -) 200 mg PO TID [facility] Last Admin: 10/11/19 05:44 Dose: 200 mg Losartan Potassium (Cozaar -) 25 mg PO DAILY [facility] Last Admin: 10/12/19 09:10 Dose: 25 mg Nifedipine (Procardia Xl -) 60 mg PO DAILY [facility] Last Admin: 10/10/19 09:47 Dose: 60 mg Pantoprazole Sodium (Protonix -) 40 mg PO DAILY [facility] Last Admin: 10/12/19 09:10 Dose: 40 mg Gen: NAD at rest Heart: RRR Lung: decreased breath sounds at the bases Abd: soft, nontender Ext: no edema Laboratory Results - last 24 hr 10/11/19 10/11/19 10/11/19 07:15 07:15 17:12 Neutrophils % (Manual) 71.1 Band Neutrophils % 1.0 Lymphocytes % (Manual) 11.3 D Monocytes % (Manual) 5 Eosinophils % (Manual) 2.1 D Basophils % (Manual) 0.0 Myelocytes % (Man) 6 H D Promyelocytes % (Man) 0 Blast Cells % (Manual) 0 Metamyelocytes 2 D Hypochromia 0 Platelet Estimate Normal Polychromasia 1+ Poikilocytosis 0 Anisocytosis 1+ Microcytosis 1+ Macrocytosis 1+ POC Glucometer 313 Creatine Kinase 79 Troponin I 0.03 10/11/19 10/12/19 10/12/19 21:42 05:32 11:19 Neutrophils % (Manual) Band Neutrophils % Lymphocytes % (Manual) Monocytes % (Manual) Eosinophils % (Manual) Basophils % (Manual) Myelocytes % (Man) Promyelocytes % (Man) Blast Cells % (Manual) Metamyelocytes Hypochromia Platelet Estimate Polychromasia Poikilocytosis Anisocytosis Microcytosis Macrocytosis POC Glucometer 251 175 210 Creatine Kinase Troponin I Problem List - Problems (1) Acute on chronic diastolic (congestive) heart failure Code(s): I50.33 - ACUTE ON CHRONIC DIASTOLIC (CONGESTIVE) HEART FAILURE A/P Acute on Chronic Hypoxic Respiratory Failure Acute on Chronic Diastolic Heart Failure ESRD on HD Pulmonary HTN Acute Bronchitis/URI r/o Pneumonia HTN DM COPD - HD per renal with ultrafiltration - daily weights - O2 to keep Spo2 >90% - on empiric antibiotics - monitor off medrol - inhaled bronchodilators - DVT prophylaxis Dr Haynes
--- NOTE | 2019-10-12 13:05 | PN ---
Physical Exam: SUBJECTIVE: Patient seen and examined. She denies chest pain, SOB, palpitations. OBJECTIVE: Vital Signs Period Temp Pulse Resp BP Sys/Parker Pulse Ox Last 24 Hr 97.4 F-98.4 F 62-70 16-20 143-181/53-72 95-100 GENERAL: The patient is awake, alert, and fully oriented, in no acute distress. LUNGS: Breath sounds equal, clear to auscultation bilaterally, no wheezes, no crackles, no accessory muscle use. HEART: Regular rate and rhythm, S1, S2 without murmur, rub or gallop. ABDOMEN: Soft, nontender, nondistended, normoactive bowel sounds, no guarding, no rebound, no hepatosplenomegaly, no masses. EXTREMITIES: 2+ pulses, warm, well-perfused, no edema. Laboratory Results - last 24 hr 10/11/19 10/11/19 10/11/19 07:15 17:12 21:42 Neutrophils % (Manual) 71.1 Band Neutrophils % 1.0 Lymphocytes % (Manual) 11.3 D Monocytes % (Manual) 5 Eosinophils % (Manual) 2.1 D Basophils % (Manual) 0.0 Myelocytes % (Man) 6 H D Promyelocytes % (Man) 0 Blast Cells % (Manual) 0 Metamyelocytes 2 D Hypochromia 0 Platelet Estimate Normal Polychromasia 1+ Poikilocytosis 0 Anisocytosis 1+ Microcytosis 1+ Macrocytosis 1+ POC Glucometer 313 251 10/12/19 10/12/19 05:32 11:19 Neutrophils % (Manual) Band Neutrophils % Lymphocytes % (Manual) Monocytes % (Manual) Eosinophils % (Manual) Basophils % (Manual) Myelocytes % (Man) Promyelocytes % (Man) Blast Cells % (Manual) Metamyelocytes Hypochromia Platelet Estimate Polychromasia Poikilocytosis Anisocytosis Microcytosis Macrocytosis POC Glucometer 175 210 Active Medications Generic Name Dose Route Start Last Admin Trade Name Freq PRN Reason Stop Dose Admin Acetaminophen 650 mg 10/10/19 18:43 10/11/19 11:42 Tylenol - PO 650 mg Q6H PRN Administration PAIN LEVEL 7 - 10 Albuterol Sulfate 1 amp 10/07/19 12:38 Ventolin 0.083% Nebulizer Soln - NEB RQ4H PRN SHORT OF BREATH/WHEEZING Albuterol/Ipratropium 1 amp 10/07/19 14:00 10/12/19 07:50 Duoneb - NEB 1 amp RTID AKRINA Administration Aspirin 81 mg 10/07/19 10:00 10/12/19 09:10 Asa - PO 81 mg DAILY [facility] Administration Atorvastatin Calcium 10 mg 10/07/19 22:00 10/11/19 21:44 Lipitor - PO 10 mg HS [facility] Administration Clopidogrel Bisulfate 75 mg 10/07/19 10:00 10/12/19 09:11 Plavix - PO 75 mg DAILY [facility] Administration Docusate Sodium 100 mg 10/07/19 22:00 10/11/19 21:44 Colace - PO 100 mg HS [facility] Administration Gabapentin 100 mg 10/07/19 10:00 10/12/19 09:10 Neurontin - PO 100 mg BID [facility] Administration Heparin Sodium (Porcine) 5,000 unit 10/07/19 06:00 10/12/19 06:17 Heparin - SQ 5,000 unit TID [facility]ARIAN Administration Ceftriaxone Sodium 1 gm/ 50 mls @ 100 mls/hr 10/07/19 10:00 10/12/19 09:16 Dextrose IVPB 100 mls/hr DAILY [facility] Administration Insulin Aspart 1 vial 10/09/19 22:00 10/12/19 11:20 Novolog Vial Sliding Scale - SQ 6 units ACHS [facility] Administration Protocol Insulin Detemir 15 units 10/08/19 12:53 10/11/19 21:45 Levemir Vial SQ 15 units HS [facility] Administration Insulin Detemir 15 units 10/10/19 07:00 10/12/19 06:17 Levemir Vial SQ 15 units AM [facility] Administration Labetalol HCl 200 mg 10/07/19 06:00 10/11/19 05:44 Normodyne - PO 200 mg TID [facility] Administration Losartan Potassium 25 mg 10/09/19 14:00 10/12/19 09:10 Cozaar - PO 25 mg DAILY [facility] Administration Nifedipine 60 mg 10/07/19 10:00 10/10/19 09:47 Procardia Xl - PO 60 mg DAILY [facility] Administration Pantoprazole Sodium 40 mg 10/07/19 10:00 10/12/19 09:10 Protonix - PO 40 mg DAILY [facility] Administration ASSESSMENT/PLAN: This is a 73 year old woman with a history of HTN, type 2 DM, chronic diastolic heart failure, ESRD, chronic hypoxic respiratory failure, COPD who presented to the ED with cough and sore throat. 1. Acute on chronic hypoxic respiratory failure - Steroids discontinued - Continue oxygen to keep saturation >90% 2. Acute on chronic diastolic heart failure - Improved 3. Sepsis secondary to pneumonia - Continue ceftriaxone - Completed azithromycin 4. COPD - Continue DuoNeb 5. Bradycardia - Resolved - Continue to monitor for bradycardia on Labetalol and Procardia 6. ESRD - Continue HD 7. Anemia secondary to ESRD - Hgb stable 8. Type 2 DM - Increase AM Levemir - Continue Novolog sliding scale 9. HTN - Continue Procardia XL, Cozaar, Labetalol 10. Hyperlipidemia - Continue Lipitor Visit type - Emergency Visit Emergency Visit: Yes ED Registration Date: 10/06/19 Care time: The patient presented to the Emergency Department on the above date and was hospitalized for further evaluation of their emergent condition. - New Patient This patient is new to me today: Yes Date on this admission: 10/12/19 - Critical Care Critical Care patient: No - Discharge Referral Referred to [facility] Med P.C.: No
--- NOTE | 2019-10-12 13:35 | PN ---
Progress Note, Physician History of Present Illness: Pt alert, fully responsive, without resp distress. States she is breathing better, has some residual cough but no SOB. - Current Medication List Current Medications: Active Medications Acetaminophen (Tylenol -) 650 mg PO Q6H PRN PRN Reason: PAIN LEVEL 7 - 10 Last Admin: 10/11/19 11:42 Dose: 650 mg Albuterol Sulfate (Ventolin 0.083% Nebulizer Soln -) 1 amp NEB RQ4H PRN PRN Reason: SHORT OF BREATH/WHEEZING Albuterol/Ipratropium (Duoneb -) 1 amp NEB RTID [facility] Last Admin: 10/12/19 07:50 Dose: 1 amp Aspirin (Asa -) 81 mg PO DAILY [facility] Last Admin: 10/12/19 09:10 Dose: 81 mg Atorvastatin Calcium (Lipitor -) 10 mg PO HS [facility] Last Admin: 10/11/19 21:44 Dose: 10 mg Clopidogrel Bisulfate (Plavix -) 75 mg PO DAILY [facility] Last Admin: 10/12/19 09:11 Dose: 75 mg Docusate Sodium (Colace -) 100 mg PO HS [facility] Last Admin: 10/11/19 21:44 Dose: 100 mg Gabapentin (Neurontin -) 100 mg PO BID [facility] Last Admin: 10/12/19 09:10 Dose: 100 mg Heparin Sodium (Porcine) (Heparin -) 5,000 unit SQ TID [facility] Last Admin: 10/12/19 06:17 Dose: 5,000 unit Ceftriaxone Sodium 1 gm/ (Dextrose) 50 mls @ 100 mls/hr IVPB DAILY [facility] Last Admin: 10/12/19 09:16 Dose: 100 mls/hr Insulin Aspart (Novolog Vial Sliding Scale -) 1 vial SQ [facility]; Protocol Last Admin: 10/12/19 11:20 Dose: 6 units Insulin Detemir (Levemir Vial) 15 units SQ HS [facility] Last Admin: 10/11/19 21:45 Dose: 15 units Insulin Detemir (Levemir Vial) 15 units SQ AM [facility] Last Admin: 10/12/19 06:17 Dose: 15 units Labetalol HCl (Normodyne -) 200 mg PO TID [facility] Last Admin: 10/11/19 05:44 Dose: 200 mg Losartan Potassium (Cozaar -) 25 mg PO DAILY [facility] Last Admin: 10/12/19 09:10 Dose: 25 mg Nifedipine (Procardia Xl -) 60 mg PO DAILY [facility] Last Admin: 10/10/19 09:47 Dose: 60 mg Pantoprazole Sodium (Protonix -) 40 mg PO DAILY [facility] Last Admin: 10/12/19 09:10 Dose: 40 mg - Objective Vital Signs: Vital Signs Temperature 98.4 F 10/12/19 10:00 Pulse Rate 65 10/12/19 10:00 Respiratory Rate 18 10/12/19 10:00 Blood Pressure 172/69 H 10/12/19 10:00 O2 Sat by Pulse Oximetry (%) 98 10/12/19 11:57 Constitutional: Yes: No Distress, Calm Cardiovascular: Yes: Regular Rate and Rhythm Respiratory: Yes: CTA Bilaterally Gastrointestinal: Yes: Normal Bowel Sounds, Soft Extremities: Yes: WNL Integumentary: Yes: WNL Neurological: Yes: Alert Labs: CBC, BMP 10/11/19 07:15 10/11/19 07:15 Microbiology 10/06/19 22:05 Blood - Peripheral Venous Blood Culture - Final NO GROWTH AFTER 5 DAYS INCUBATION 10/06/19 22:05 Blood - Peripheral Venous Blood Culture - Final NO GROWTH AFTER 5 DAYS INCUBATION 10/06/19 22:05 Throat Throat Culture - Final NO BETA HEMOLYTIC STREPTOCOCCI ISOLATED Problem List - Problems (1) Acute and chronic respiratory failure with hypoxia Code(s): J96.21 - ACUTE AND CHRONIC RESPIRATORY FAILURE WITH HYPOXIA (2) Anemia Code(s): D64.9 - ANEMIA, UNSPECIFIED (3) ESRD (end stage renal disease) on dialysis Code(s): N18.6 - END STAGE RENAL DISEASE; Z99.2 - DEPENDENCE ON RENAL DIALYSIS (4) Acute on chronic diastolic (congestive) heart failure Code(s): I50.33 - ACUTE ON CHRONIC DIASTOLIC (CONGESTIVE) HEART FAILURE (5) Anemia Code(s): D64.9 - ANEMIA, UNSPECIFIED Qualifiers: Anemia type: unspecified type Qualified Code(s): D64.9 - Anemia, unspecified (6) Diabetes type 2, controlled Code(s): E11.9 - TYPE 2 DIABETES MELLITUS WITHOUT COMPLICATIONS Qualifiers: Diabetes mellitus complication status: with kidney complications Chronic kidney disease stage: stage 5, not on chronic dialysis (7) Paroxysmal atrial fibrillation Code(s): I48.0 - PAROXYSMAL ATRIAL FIBRILLATION (8) End stage renal disease Code(s): N18.6 - END STAGE RENAL DISEASE (9) Hyperlipidemia Code(s): E78.5 - HYPERLIPIDEMIA, UNSPECIFIED Qualifiers: Hyperlipidemia type: pure hypercholesterolemia Qualified Code(s): E78.00 - Pure hypercholesterolemia, unspecified; E78.0 - Pure hypercholesterolemia (10) Hypertension Code(s): I10 - ESSENTIAL (PRIMARY) HYPERTENSION Qualifiers: Hypertension type: essential hypertension Qualified Code(s): I10 - Essential (primary) hypertension Assessment/Plan -- d/c Ceftriaxone, Augmentin 500 mg po x 1 dose tomorrow -- on bronchodilators -- Pt with less SOB/cough, afebrile, without respiratory distress at this time
[2019-10-12] MEDS ORDERED: AMOX TR/POT CLAV 500MG/125MG TABLETS (FP) PO ONE (13:45)
[2019-10-12] MEDS ORDERED: PT OWN MED DRAWER 7, Y5N ONE (13:49)
[2019-10-12] MEDS: LABETALOL HCL 200 MG TABLET (FP) PO SCH ×2 (13:57→21:12)
--- NOTE | 2019-10-12 14:43 | PN ---
Progress Note (short form) - Note Progress Note: RENAL feells better though still dyspneic Last Vital Signs Temp Pulse Resp BP Pulse Ox 98.4 F 61 18 191/68 H 98 10/12/19 14:29 10/12/19 14:29 10/12/19 14:29 10/12/19 14:29 10/12/19 11:57 lungs crackles at bases noted cvs s1s2 rr +JAEL abd soft ext trace edema neuro a+ox3 CBC, BMP 10/11/19 07:15 10/11/19 07:15 Current Medications Generic Name Dose Route Start Last Admin Trade Name Freq PRN Reason Stop Dose Admin Acetaminophen 650 mg 10/10/19 18:43 10/11/19 11:42 Tylenol - PO 650 mg Q6H PRN Administration PAIN LEVEL 7 - 10 Albuterol Sulfate 1 amp 10/07/19 12:38 Ventolin 0.083% Nebulizer Soln - NEB RQ4H PRN SHORT OF BREATH/WHEEZING Albuterol/Ipratropium 1 amp 10/07/19 14:00 10/12/19 07:50 Duoneb - NEB 1 amp RTID KARINA Administration Amoxicillin/Clavulanate Potassium 1 tab 10/13/19 12:00 Augmentin - 500mg Tablet PO 10/13/19 12:01 ONCE ONE Amoxicillin/Clavulanate Potassium 1 tab 10/16/19 12:00 Augmentin - 500mg Tablet PO 10/16/19 12:01 ONCE ONE Aspirin 81 mg 10/07/19 10:00 10/12/19 09:10 Asa - PO 81 mg DAILY KARINA Administration Atorvastatin Calcium 10 mg 10/07/19 22:00 10/11/19 21:44 Lipitor - PO 10 mg HS KARINA Administration Clopidogrel Bisulfate 75 mg 10/07/19 10:00 10/12/19 09:11 Plavix - PO 75 mg DAILY KARINA Administration Docusate Sodium 100 mg 10/07/19 22:00 10/11/19 21:44 Colace - PO 100 mg HS KARINA Administration Gabapentin 100 mg 10/07/19 10:00 10/12/19 09:10 Neurontin - PO 100 mg BID KARINA Administration Heparin Sodium (Porcine) 5,000 unit 10/07/19 06:00 10/12/19 13:56 Heparin - SQ 5,000 unit TID KARINA Administration Insulin Aspart 1 vial 10/09/19 22:00 10/12/19 11:20 Novolog Vial Sliding Scale - SQ 6 units ACHS KARINA Administration Protocol Insulin Detemir 15 units 10/08/19 12:53 10/11/19 21:45 Levemir Vial SQ 15 units HS K[facility]INA Administration Insulin Detemir 15 units 10/10/19 07:00 10/12/19 06:17 Levemir Vial SQ 15 units AM [facility] Administration Labetalol HCl 200 mg 10/07/19 06:00 10/12/19 13:57 Normodyne - PO 200 mg TID KARINA Administration Losartan Potassium 25 mg 10/09/19 14:00 10/12/19 09:10 Cozaar - PO 25 mg DAILY [facility] Administration Nifedipine 60 mg 10/07/19 10:00 10/10/19 09:47 Procardia Xl - PO 60 mg DAILY [facility] Administration Pantoprazole Sodium 40 mg 10/07/19 10:00 10/12/19 09:10 Protonix - PO 40 mg DAILY KARINA Administration 73 year old woman with history of ESRD on HD (TTS), diastolic HF, COPD who presented with cough and fever and admitted for URI +/- volume overload. 1. ESRD on HD 2. Hyperkalemia 3. Hyponatremia 4. URI/Fever 5. Mild pulmonary congestion 6. Anemia 7. s/p bradycardia during hd while on zithrmax perhaps due to prolonged qt cautious use of labetalol at this point since she became bradycardic dialysis bath switched to 3 k ekg report noted will dialyze again tomorrow for fluid removal given her complaint of dyspnea. She can be dialyzed also on Sunday Dr Mcmahan to follow again starting tomorrow MV
[2019-10-12] MEDS ORDERED: SODIUM CHLORIDE 250 ML IV PRN (14:47)
[2019-10-12] MEDS: hydrALAZINE HCL 10 MG TABLET PO SCH ×2 (16:18→21:12)
[2019-10-12] MEDS: DOCUSATE SODIUM 100 MG CAPSULE (FP) PO SCH (21:11)
[2019-10-12] MEDS: ATORVASTATIN CA 10 MG TABLET (FP) PO SCH (21:12)
[2019-10-12] MEDS: ACETAMINOPHEN 325 MG TABLET (FP) PO PRN (23:52)
[2019-10-13] MEDS: INSULIN SLIDING SCALE (NOVOLOG) 1 VIAL SQ SCH ×4 (06:19→21:51)
[2019-10-13] MEDS: LABETALOL HCL 200 MG TABLET (FP) PO SCH ×3 (06:28→21:51)
[2019-10-13] MEDS: hydrALAZINE HCL 10 MG TABLET PO SCH ×3 (06:28→21:50)
[2019-10-13] MEDS: INSULIN (LEVEMIR) 100 UNITS/ML UNITS SQ SCH ×2 (06:29→21:50)
[2019-10-13] MEDS: HEPARIN NA (PORCINE) 5,000 UNITS/ML 1ML VIAL SQ SCH ×3 (06:30→21:59)
[2019-10-13] MEDS: ALBUTEROL SO4 2.5/IPRATROPIUM 0.5 INH SOL 3 ML VIAL.NEB. NEB SCH ×3 (07:25→20:16)
--- NOTE | 2019-10-13 07:52 | PN ---
Progress Note, Physician Chief Complaint: Examined during HD. Speaks primarily Kyrgyz. States she is feeling better History of Present Illness: Patient is a 73 year old female with a significant past medical history of ESRD- via left av fistula, diabetes, hypertension, diastolic CHF, and COPD (on home oxygen) who comes in with c/o of 2 days of sore throat/cough and malaise. She endorses subjective fevers at home with chills. In the ED she was placed on bipap for acute hypoxic respiratory failure (desaurated to the 70s in the ED) and being ruled out for pneumonia. She received dialysis today. - Current Medication List Current Medications: Active Medications Acetaminophen (Tylenol -) 650 mg PO Q6H PRN PRN Reason: PAIN LEVEL 7 - 10 Last Admin: 10/12/19 23:52 Dose: 650 mg Albuterol Sulfate (Ventolin 0.083% Nebulizer Soln -) 1 amp NEB RQ4H PRN PRN Reason: SHORT OF BREATH/WHEEZING Albuterol/Ipratropium (Duoneb -) 1 amp NEB RTID [facility] Last Admin: 10/12/19 20:30 Dose: 1 amp Amoxicillin/Clavulanate Potassium (Augmentin - 500mg Tablet) 1 tab PO ONCE ONE Stop: 10/13/19 12:01 Amoxicillin/Clavulanate Potassium (Augmentin - 500mg Tablet) 1 tab PO ONCE ONE Stop: 10/16/19 12:01 Aspirin (Asa -) 81 mg PO DAILY [facility] Last Admin: 10/12/19 09:10 Dose: 81 mg Atorvastatin Calcium (Lipitor -) 10 mg PO HS [facility] Last Admin: 10/12/19 21:12 Dose: 10 mg Clopidogrel Bisulfate (Plavix -) 75 mg PO DAILY [facility] Last Admin: 10/12/19 09:11 Dose: 75 mg Docusate Sodium (Colace -) 100 mg PO HS [facility] Last Admin: 10/12/19 21:11 Dose: 100 mg Gabapentin (Neurontin -) 100 mg PO BID [facility] Last Admin: 10/12/19 21:11 Dose: 100 mg Heparin Sodium (Porcine) (Heparin -) 5,000 unit SQ TID [facility] Last Admin: 10/13/19 06:30 Dose: 5,000 unit Hydralazine HCl (Apresoline -) 10 mg PO TID [facility] Last Admin: 10/13/19 06:28 Dose: 10 mg Sodium Chloride (Normal Saline -) 250 mls @ 3,000 mls/hr IV PRN PRN PRN Reason: Hypotension during Dialysis Stop: 10/13/19 14:47 Insulin Aspart (Novolog Vial Sliding Scale -) 1 vial SQ ACHS [facility]; Protocol Last Admin: 10/13/19 06:19 Dose: Not Given Insulin Detemir (Levemir Vial) 15 units SQ HS [facility] Last Admin: 10/12/19 21:12 Dose: 15 units Insulin Detemir (Levemir Vial) 20 units SQ AM [facility] Last Admin: 10/13/19 06:29 Dose: 20 units Labetalol HCl (Normodyne -) 200 mg PO TID [facility] Last Admin: 10/13/19 06:28 Dose: 200 mg Losartan Potassium (Cozaar -) 50 mg PO DAILY [facility] Nifedipine (Procardia Xl -) 90 mg PO DAILY [facility] Pantoprazole Sodium (Protonix -) 40 mg PO DAILY [facility] Last Admin: 10/12/19 09:10 Dose: 40 mg - Objective Vital Signs: Vital Signs Temperature 98.5 F 10/13/19 07:10 Pulse Rate 67 10/13/19 07:45 Respiratory Rate 18 10/13/19 07:45 Blood Pressure 181/64 H 10/13/19 07:45 O2 Sat by Pulse Oximetry (%) 97 10/12/19 21:00 Additional Findings/Remarks: Constitutional: Yes: Well Nourished, No Distress, Calm Eyes: Yes: WNL, Conjunctiva Clear HENT: Yes: WNL, Atraumatic, Normocephalic Neck: Yes: WNL, Supple, Trachea Midline Cardiovascular: Yes: WNL, Regular Rate and Rhythm Respiratory: Yes: Diminished (at bases) Gastrointestinal: Yes: WNL, Normal Bowel Sounds ...Rectal Exam: Yes: Deferred Genitourinary: Yes: Anuria (makes some urine), Incontinence Breast(s): Yes: WNL Musculoskeletal: Yes: WNL Extremities: Yes: Other (R AVF noted, +bruit/thrill) Edema: No Peripheral Pulses WNL: Yes Peripheral Pulses: Left Radial: 2+, Right Radial: 2+, Left Doralis Pedis: 2+, Right Dorsalis Pedis: 2+, Left Femoral: 2+, Right Femoral: 2+ Integumentary: Yes: WNL Neurological: Yes: WNL, Alert, Oriented ...Motor Strength: WNL Psychiatric: Yes: WNL Labs: CBC, BMP 10/11/19 07:15 10/11/19 07:15 - ....Imaging Other: Pending (TTE) Problem List - Problems (1) Prophylactic measure Assessment/Plan: FEN s/p dialysis this AM With 3L UF monitor electrolytes daily weights no additional IVF diabetic/renal diet DVT heparin sq Disapo maintain on tele full code discharge planning-If TTE without finding plan for DC tmrw Code(s): Z29.9 - ENCOUNTER FOR PROPHYLACTIC MEASURES, UNSPECIFIED (2) Hypoxia Assessment/Plan: supplemental O2 to keep Spo2 >90% c/w antibiotic solumedrol stopped, monitor off c/w inhaled bronchodilators BiPap prn not needed overnight Code(s): R09.02 - HYPOXEMIA (3) Pneumonia Assessment/Plan: initial CXR with prominent hilar markings pulmonary following off azithromycin clinically improved Code(s): J18.9 - PNEUMONIA, UNSPECIFIED ORGANISM Qualifiers: Pneumonia type: due to unspecified organism Laterality: left Lung location: lower lobe of lung Qualified Code(s): J18.9 - Pneumonia, unspecified organism (4) ESRD (end stage renal disease) on dialysis Assessment/Plan: c/w HD as per schedule s/p dialysis this AM With 3L UF Code(s): N18.6 - END STAGE RENAL DISEASE; Z99.2 - DEPENDENCE ON RENAL DIALYSIS (5) AV fistula Code(s): I77.0 - ARTERIOVENOUS FISTULA, ACQUIRED (6) Bradycardia Assessment/Plan: resolved HR 60-70s monitor on Labetolol TTE pending appreciate cardiology consultation Code(s): R00.1 - BRADYCARDIA, UNSPECIFIED Visit type - Emergency Visit Emergency Visit: Yes ED Registration Date: 10/06/19 Care time: The patient presented to the Emergency Department on the above date and was hospitalized for further evaluation of their emergent condition. - New Patient This patient is new to me today: No - Critical Care Critical Care patient: No - Discharge Referral Referred to [facility] Med [facility].C[facility] No
--- NOTE | 2019-10-13 10:30 | PN ---
Progress Note, Physician History of Present Illness: pulmoary alert,feeling bettter,sob improving,on hd - Current Medication List Current Medications: Active Medications Acetaminophen (Tylenol -) 650 mg PO Q6H PRN PRN Reason: PAIN LEVEL 7 - 10 Last Admin: 10/12/19 23:52 Dose: 650 mg Albuterol Sulfate (Ventolin 0.083% Nebulizer Soln -) 1 amp NEB RQ4H PRN PRN Reason: SHORT OF BREATH/WHEEZING Albuterol/Ipratropium (Duoneb -) 1 amp NEB RTID [facility] Last Admin: 10/13/19 07:25 Dose: 1 amp Amoxicillin/Clavulanate Potassium (Augmentin - 500mg Tablet) 1 tab PO ONCE ONE Stop: 10/13/19 12:01 Amoxicillin/Clavulanate Potassium (Augmentin - 500mg Tablet) 1 tab PO ONCE ONE Stop: 10/16/19 12:01 Aspirin (Asa -) 81 mg PO DAILY [facility] Last Admin: 10/12/19 09:10 Dose: 81 mg Atorvastatin Calcium (Lipitor -) 10 mg PO [facility] Last Admin: 10/12/19 21:12 Dose: 10 mg Clopidogrel Bisulfate (Plavix -) 75 mg PO DAILY [facility] Last Admin: 10/12/19 09:11 Dose: 75 mg Docusate Sodium (Colace -) 100 mg PO [facility] Last Admin: 10/12/19 21:11 Dose: 100 mg Gabapentin (Neurontin -) 100 mg PO BID [facility] Last Admin: 10/12/19 21:11 Dose: 100 mg Heparin Sodium (Porcine) (Heparin -) 5,000 unit SQ TID [facility] Last Admin: 10/13/19 06:30 Dose: 5,000 unit Hydralazine HCl (Apresoline -) 10 mg PO TID [facility] Last Admin: 10/13/19 06:28 Dose: 10 mg Sodium Chloride (Normal Saline -) 250 mls @ 3,000 mls/hr IV PRN PRN PRN Reason: Hypotension during Dialysis Stop: 10/13/19 14:47 Insulin Aspart (Novolog Vial Sliding Scale -) 1 vial SQ [facility]; Protocol Last Admin: 10/13/19 06:19 Dose: Not Given Insulin Detemir (Levemir Vial) 15 units SQ [facility] Last Admin: 10/12/19 21:12 Dose: 15 units Insulin Detemir (Levemir Vial) 20 units SQ AM [facility] Last Admin: 10/13/19 06:29 Dose: 20 units Labetalol HCl (Normodyne -) 200 mg PO TID [facility] Last Admin: 10/13/19 06:28 Dose: 200 mg Losartan Potassium (Cozaar -) 50 mg PO DAILY [facility] Nifedipine (Procardia Xl -) 90 mg PO DAILY [facility] Pantoprazole Sodium (Protonix -) 40 mg PO DAILY [facility] Last Admin: 10/12/19 09:10 Dose: 40 mg - Objective Vital Signs: Vital Signs Temperature 98.5 F 10/13/19 07:10 Pulse Rate 62 10/13/19 09:15 Respiratory Rate 18 10/13/19 09:15 Blood Pressure 171/74 H 10/13/19 09:15 O2 Sat by Pulse Oximetry (%) 98 10/13/19 08:08 Constitutional: Yes: Well Nourished, Calm Eyes: Yes: WNL HENT: Yes: WNL Neck: Yes: WNL Cardiovascular: Yes: Regular Rate and Rhythm, S1, S2 Respiratory: Yes: Diminished Gastrointestinal: Yes: Normal Bowel Sounds, Soft Extremities: Yes: WNL Edema: No Labs: CBC, BMP 10/11/19 07:15 10/11/19 07:15 Problem List - Problems (1) Hypoxia Code(s): R09.02 - HYPOXEMIA (2) ESRD (end stage renal disease) on dialysis Code(s): N18.6 - END STAGE RENAL DISEASE; Z99.2 - DEPENDENCE ON RENAL DIALYSIS (3) Acute on chronic diastolic (congestive) heart failure Code(s): I50.33 - ACUTE ON CHRONIC DIASTOLIC (CONGESTIVE) HEART FAILURE (4) Anemia Code(s): D64.9 - ANEMIA, UNSPECIFIED Qualifiers: Anemia type: unspecified type Qualified Code(s): D64.9 - Anemia, unspecified (5) Paroxysmal atrial fibrillation Code(s): I48.0 - PAROXYSMAL ATRIAL FIBRILLATION (6) Shortness of breath Code(s): R06.02 - SHORTNESS OF BREATH (7) Anemia, chronic renal failure Code(s): N18.9 - CHRONIC KIDNEY DISEASE, UNSPECIFIED; D63.1 - ANEMIA IN CHRONIC KIDNEY DISEASE (8) CKD (chronic kidney disease) Code(s): N18.9 - CHRONIC KIDNEY DISEASE, UNSPECIFIED (9) End stage renal disease Code(s): N18.6 - END STAGE RENAL DISEASE (10) Hyperlipidemia Code(s): E78.5 - HYPERLIPIDEMIA, UNSPECIFIED Qualifiers: Hyperlipidemia type: pure hypercholesterolemia Qualified Code(s): E78.00 - Pure hypercholesterolemia, unspecified; E78.0 - Pure hypercholesterolemia (11) Hypertension Code(s): I10 - ESSENTIAL (PRIMARY) HYPERTENSION Qualifiers: Hypertension type: essential hypertension Qualified Code(s): I10 - Essential (primary) hypertension (12) Congestive heart failure Code(s): I50.9 - HEART FAILURE, UNSPECIFIED (13) Acute and chronic respiratory failure with hypoxia Code(s): J96.21 - ACUTE AND CHRONIC RESPIRATORY FAILURE WITH HYPOXIA Assessment/Plan Problem List - Problems (1) Acute on chronic diastolic (congestive) heart failure Code(s): I50.33 - ACUTE ON CHRONIC DIASTOLIC (CONGESTIVE) HEART FAILURE Assessment/Plan Acute on Chronic Hypoxic Respiratory Failure clinically improving Acute on Chronic Diastolic Heart Failure improving ESRD on HD Pulmonary HTN Acute Bronchitis/URI r/o Pneumonia HTN DM COPD - HD per renal with ultrafiltration - daily weights - O2 to keep Spo2 >90% - inhaled bronchodilators - DVT prophylaxis DR VIVAS
[2019-10-13] MEDS: PANTOPRAZOLE 40 MG TABLET (FP) PO SCH (11:08)
[2019-10-13] MEDS: GABAPENTIN 100 MG CAPSULE (FP) PO SCH ×2 (11:08→21:50)
[2019-10-13] MEDS: CLOPIDOGREL BISULFATE 75 MG TABLET (FP) PO SCH (11:08)
[2019-10-13] MEDS: ASPIRIN 81 MG CHEWABLE TABLETS PO SCH (11:08)
[2019-10-13] MEDS: LOSARTAN POTASSIUM 25 MG TABLET PO SCH (11:42)
[2019-10-13] MEDS ORDERED: LOSARTAN POTASSIUM 50 MG TABLET (FP) PO ONE (11:52)
[2019-10-13] MEDS ORDERED: PT OWN MED DRAWER 7, Y5N ONE (11:58)
[2019-10-13] MEDS ORDERED: AMOX TR/POT CLAV 500MG/125MG TABLETS (FP) PO ONE ×2 (12:00→13:31)
--- NOTE | 2019-10-13 12:29 | PN ---
Progress Note, Physician History of Present Illness: No sig pauses on telemetry, denies recurrent syncope. Cough and dyspnea improving post dialysis this AM With 3L UF. - Current Medication List Current Medications: Active Medications Acetaminophen (Tylenol -) 650 mg PO Q6H PRN PRN Reason: PAIN LEVEL 7 - 10 Last Admin: 10/12/19 23:52 Dose: 650 mg Albuterol Sulfate (Ventolin 0.083% Nebulizer Soln -) 1 amp NEB RQ4H PRN PRN Reason: SHORT OF BREATH/WHEEZING Albuterol/Ipratropium (Duoneb -) 1 amp NEB RTID [facility] Last Admin: 10/13/19 07:25 Dose: 1 amp Amoxicillin/Clavulanate Potassium (Augmentin - 500mg Tablet) 1 tab PO ONCE ONE Stop: 10/16/19 12:01 Aspirin (Asa -) 81 mg PO DAILY [facility] Last Admin: 10/13/19 11:08 Dose: 81 mg Atorvastatin Calcium (Lipitor -) 10 mg PO HS [facility] Last Admin: 10/12/19 21:12 Dose: 10 mg Clopidogrel Bisulfate (Plavix -) 75 mg PO DAILY [facility] Last Admin: 10/13/19 11:08 Dose: 75 mg Docusate Sodium (Colace -) 100 mg PO HS [facility] Last Admin: 10/12/19 21:11 Dose: 100 mg Gabapentin (Neurontin -) 100 mg PO BID [facility] Last Admin: 10/13/19 11:08 Dose: 100 mg Heparin Sodium (Porcine) (Heparin -) 5,000 unit SQ TID [facility] Last Admin: 10/13/19 06:30 Dose: 5,000 unit Hydralazine HCl (Apresoline -) 10 mg PO TID [facility] Last Admin: 10/13/19 06:28 Dose: 10 mg Sodium Chloride (Normal Saline -) 250 mls @ 3,000 mls/hr IV PRN PRN PRN Reason: Hypotension during Dialysis Stop: 10/13/19 14:47 Insulin Aspart (Novolog Vial Sliding Scale -) 1 vial SQ [facility]; Protocol Last Admin: 10/13/19 11:16 Dose: 10 units Insulin Detemir (Levemir Vial) 15 units SQ HS [facility] Last Admin: 10/12/19 21:12 Dose: 15 units Insulin Detemir (Levemir Vial) 20 units SQ AM [facility] Last Admin: 10/13/19 06:29 Dose: 20 units Labetalol HCl (Normodyne -) 200 mg PO TID [facility] Last Admin: 10/13/19 06:28 Dose: 200 mg Losartan Potassium (Cozaar -) 50 mg PO DAILY [facility] Last Admin: 10/13/19 11:42 Dose: Not Given Nifedipine (Procardia Xl -) 90 mg PO DAILY [facility] Pantoprazole Sodium (Protonix -) 40 mg PO DAILY [facility] Last Admin: 10/13/19 11:08 Dose: 40 mg - Objective Vital Signs: Vital Signs Temperature 98.5 F 10/13/19 07:10 Pulse Rate 61 10/13/19 10:20 Respiratory Rate 18 10/13/19 10:20 Blood Pressure 153/68 10/13/19 10:20 O2 Sat by Pulse Oximetry (%) 98 10/13/19 08:08 Constitutional: Yes: No Distress, Calm, Thin Neck: Yes: Supple Cardiovascular: Yes: Regular Rate and Rhythm Respiratory: Yes: Regular, CTA Bilaterally Gastrointestinal: Yes: Normal Bowel Sounds, Soft Edema: No Labs: CBC, BMP 10/11/19 07:15 10/11/19 07:15 - ....Imaging EKG: Report Reviewed (Tele: SR) Problem List - Problems (1) Bradycardia Code(s): R00.1 - BRADYCARDIA, UNSPECIFIED (2) ESRD (end stage renal disease) on dialysis Code(s): N18.6 - END STAGE RENAL DISEASE; Z99.2 - DEPENDENCE ON RENAL DIALYSIS (3) AV fistula Code(s): I77.0 - ARTERIOVENOUS FISTULA, ACQUIRED (4) Acute on chronic diastolic (congestive) heart failure Code(s): I50.33 - ACUTE ON CHRONIC DIASTOLIC (CONGESTIVE) HEART FAILURE (5) Anemia Code(s): D64.9 - ANEMIA, UNSPECIFIED Qualifiers: Anemia type: unspecified type Qualified Code(s): D64.9 - Anemia, unspecified (6) Asymptomatic hypertensive urgency Code(s): I16.0 - HYPERTENSIVE URGENCY (7) Diabetes type 2, controlled Code(s): E11.9 - TYPE 2 DIABETES MELLITUS WITHOUT COMPLICATIONS Qualifiers: Diabetes mellitus complication status: with kidney complications Chronic kidney disease stage: stage 5, not on chronic dialysis (8) Hypertensive urgency Code(s): I10 - ESSENTIAL (PRIMARY) HYPERTENSION (9) Paroxysmal atrial fibrillation Code(s): I48.0 - PAROXYSMAL ATRIAL FIBRILLATION (10) Anemia, chronic renal failure Code(s): N18.9 - CHRONIC KIDNEY DISEASE, UNSPECIFIED; D63.1 - ANEMIA IN CHRONIC KIDNEY DISEASE (11) Diabetes Code(s): E11.9 - TYPE 2 DIABETES MELLITUS WITHOUT COMPLICATIONS Qualifiers: Diabetes mellitus complication status: with kidney complications Diabetes mellitus complication detail: with chronic kidney disease Chronic kidney disease stage: on chronic dialysis (12) End stage renal disease Code(s): N18.6 - END STAGE RENAL DISEASE (13) Hyperlipidemia Code(s): E78.5 - HYPERLIPIDEMIA, UNSPECIFIED Qualifiers: Hyperlipidemia type: pure hypercholesterolemia Qualified Code(s): E78.00 - Pure hypercholesterolemia, unspecified; E78.0 - Pure hypercholesterolemia (14) Hypertensive renal disease Code(s): I12.9 - HYPERTENSIVE CHRONIC KIDNEY DISEASE W STG 1-4/UNSP CHR KDNY Assessment/Plan 1. Sinus bradycardia with episode of LOC, suspect post-tussive, vasovagal etiology 2. ESRD on HD with hyperkalemia and hyponatremia 3. COPD 4. HTN 5. Hypercholesterolemia 6. DM 7. LV diastolic dysfunction currently euvolemic 8. Pneumonia PLAN: 1. monitor tech unremarkable so far 2. Increased Procardia XL to 90 mg QD, Losartan to 50 mg QD and Labetalol 200 mg TID (to be used with caution in view of episode of bradycardia). Continue Hydralazine 10 mg TID and uptitrate as needed 3. Continue ASA 81 mg QD, but unclear as to reason for Plavix 4. Continue Lipitor 10 qhs 5. HD as per renal service. Monitor renal function and electrolytes 6. Empiric antibiotic coverage 7. Echocardiography to assess LV/RV and valvular function if not done recently 8. DVT and GI prophylaxis
--- NOTE | 2019-10-13 12:47 | PN ---
Progress Note (short form) - Note Progress Note: Renal follow up for ESRD on HD Seen and examined at the bedside s/p dialysis this AM With 3L UF still has cough no chest pain, fever, chills or shortness of breath Vital Signs Temperature 98.5 F 10/13/19 07:10 Pulse Rate 61 10/13/19 10:20 Respiratory Rate 18 10/13/19 10:20 Blood Pressure 153/68 10/13/19 10:20 O2 Sat by Pulse Oximetry (%) 98 10/13/19 08:08 Intake & Output 10/10/19 10/11/19 10/12/19 10/13/19 23:59 23:59 23:59 23:59 Intake Total 1830 2820 1705 600 Output Total 2500 3500 Balance 8330 257 3672 -2900 Weight 69.626 kg 66.678 kg NAD RRR, no M/R Dec BS, no wheeze soft NT/ND no LE edema CBC, BMP 10/11/19 07:15 10/11/19 07:15 Current Medications Acetaminophen (Tylenol -) 650 mg PO Q6H PRN PRN Reason: PAIN LEVEL 7 - 10 Last Admin: 10/12/19 23:52 Dose: 650 mg Albuterol Sulfate (Ventolin 0.083% Nebulizer Soln -) 1 amp NEB RQ4H PRN PRN Reason: SHORT OF BREATH/WHEEZING Albuterol/Ipratropium (Duoneb -) 1 amp NEB RTID [facility] Last Admin: 10/13/19 07:25 Dose: 1 amp Amoxicillin/Clavulanate Potassium (Augmentin - 500mg Tablet) 1 tab PO ONCE ONE Stop: 10/16/19 12:01 Aspirin (Asa -) 81 mg PO DAILY [facility] Last Admin: 10/13/19 11:08 Dose: 81 mg Atorvastatin Calcium (Lipitor -) 10 mg PO HS [facility] Last Admin: 10/12/19 21:12 Dose: 10 mg Clopidogrel Bisulfate (Plavix -) 75 mg PO DAILY [facility] Last Admin: 10/13/19 11:08 Dose: 75 mg Docusate Sodium (Colace -) 100 mg PO HS [facility] Last Admin: 10/12/19 21:11 Dose: 100 mg Gabapentin (Neurontin -) 100 mg PO BID [facility] Last Admin: 10/13/19 11:08 Dose: 100 mg Heparin Sodium (Porcine) (Heparin -) 5,000 unit SQ TID [facility] Last Admin: 10/13/19 06:30 Dose: 5,000 unit Hydralazine HCl (Apresoline -) 10 mg PO TID [facility] Last Admin: 10/13/19 06:28 Dose: 10 mg Sodium Chloride (Normal Saline -) 250 mls @ 3,000 mls/hr IV PRN PRN PRN Reason: Hypotension during Dialysis Stop: 10/13/19 14:47 Insulin Aspart (Novolog Vial Sliding Scale -) 1 vial SQ [facility]; Protocol Last Admin: 10/13/19 11:16 Dose: 10 units Insulin Detemir (Levemir Vial) 15 units SQ HS [facility] Last Admin: 10/12/19 21:12 Dose: 15 units Insulin Detemir (Levemir Vial) 20 units SQ AM [facility] Last Admin: 10/13/19 06:29 Dose: 20 units Labetalol HCl (Normodyne -) 200 mg PO TID [facility] Last Admin: 10/13/19 06:28 Dose: 200 mg Losartan Potassium (Cozaar -) 50 mg PO DAILY [facility] Last Admin: 10/13/19 11:42 Dose: Not Given Nifedipine (Procardia Xl -) 90 mg PO DAILY [facility] Pantoprazole Sodium (Protonix -) 40 mg PO DAILY [facility] Last Admin: 10/13/19 11:08 Dose: 40 mg 73 year old woman with history of ESRD on HD (TTS), diastolic HF, COPD who presented with cough and fever and admitted for URI +/- volume overload. 1. ESRD on HD 2. Hyperkalemia 3. Hyponatremia 4. URI/Fever 5. Mild pulmonary congestion 6. Anemia tolerated dialysis this AM with 3L UF next HD planned for tomorrow Renal diet and 1.2L fluid restriction. Continue empiric antibiotics titrate steroids as per pulmonary Will give CLIFTON with HD for anemia Continue Losartan, Nifedpine and Labetalol discharge planning as per primary team Thank you Alf Mcmahan DO
--- NOTE | 2019-10-13 14:39 | PN ---
Progress Note, Physician History of Present Illness: events noted still with cough s/p dialysis - Current Medication List Current Medications: Active Medications Acetaminophen (Tylenol -) 650 mg PO Q6H PRN PRN Reason: PAIN LEVEL 7 - 10 Last Admin: 10/12/19 23:52 Dose: 650 mg Albuterol Sulfate (Ventolin 0.083% Nebulizer Soln -) 1 amp NEB RQ4H PRN PRN Reason: SHORT OF BREATH/WHEEZING Albuterol/Ipratropium (Duoneb -) 1 amp NEB RTID [facility] Last Admin: 10/13/19 14:20 Dose: 1 amp Amoxicillin/Clavulanate Potassium (Augmentin - 500mg Tablet) 1 tab PO ONCE ONE Stop: 10/16/19 12:01 Aspirin (Asa -) 81 mg PO DAILY [facility] Last Admin: 10/13/19 11:08 Dose: 81 mg Atorvastatin Calcium (Lipitor -) 10 mg PO [facility] Last Admin: 10/12/19 21:12 Dose: 10 mg Clopidogrel Bisulfate (Plavix -) 75 mg PO DAILY [facility] Last Admin: 10/13/19 11:08 Dose: 75 mg Docusate Sodium (Colace -) 100 mg PO HS [facility] Last Admin: 10/12/19 21:11 Dose: 100 mg Gabapentin (Neurontin -) 100 mg PO BID [facility] Last Admin: 10/13/19 11:08 Dose: 100 mg Heparin Sodium (Porcine) (Heparin -) 5,000 unit SQ TID [facility] Last Admin: 10/13/19 06:30 Dose: 5,000 unit Hydralazine HCl (Apresoline -) 10 mg PO TID [facility] Last Admin: 10/13/19 06:28 Dose: 10 mg Sodium Chloride (Normal Saline -) 250 mls @ 3,000 mls/hr IV PRN PRN PRN Reason: Hypotension during Dialysis Stop: 10/13/19 14:47 Insulin Aspart (Novolog Vial Sliding Scale -) 1 vial SQ [facility]; Protocol Last Admin: 10/13/19 11:16 Dose: 10 units Insulin Detemir (Levemir Vial) 15 units SQ [facility] Last Admin: 10/12/19 21:12 Dose: 15 units Insulin Detemir (Levemir Vial) 20 units SQ AM [facility] Last Admin: 10/13/19 06:29 Dose: 20 units Labetalol HCl (Normodyne -) 200 mg PO TID [facility] Last Admin: 10/13/19 06:28 Dose: 200 mg Losartan Potassium (Cozaar -) 50 mg PO DAILY [facility] Last Admin: 10/13/19 11:42 Dose: Not Given Nifedipine (Procardia Xl -) 90 mg PO DAILY [facility] Pantoprazole Sodium (Protonix -) 40 mg PO DAILY [facility] Last Admin: 10/13/19 11:08 Dose: 40 mg - Objective Vital Signs: Vital Signs Temperature 98.5 F 10/13/19 07:10 Pulse Rate 61 10/13/19 10:20 Respiratory Rate 18 10/13/19 10:20 Blood Pressure 153/68 10/13/19 10:20 O2 Sat by Pulse Oximetry (%) 98 10/13/19 08:08 Constitutional: Yes: No Distress, Calm Cardiovascular: Yes: S1, S2 Respiratory: Yes: On BiPap, On Nasal O2 Gastrointestinal: Yes: Normal Bowel Sounds, Soft Musculoskeletal: Yes: WNL Extremities: Yes: Other Neurological: Yes: Alert, Other Psychiatric: Yes: Other Labs: CBC, BMP 10/11/19 07:15 10/11/19 07:15 Assessment/Plan Problem List - Problems (1) Hypoxia Code(s): R09.02 - HYPOXEMIA (2) ESRD (end stage renal disease) on dialysis Code(s): N18.6 - END STAGE RENAL DISEASE; Z99.2 - DEPENDENCE ON RENAL DIALYSIS (3) Acute on chronic diastolic (congestive) heart failure Code(s): I50.33 - ACUTE ON CHRONIC DIASTOLIC (CONGESTIVE) HEART FAILURE (4) Anemia Code(s): D64.9 - ANEMIA, UNSPECIFIED Qualifiers: Anemia type: unspecified type Qualified Code(s): D64.9 - Anemia, unspecified (5) Paroxysmal atrial fibrillation Code(s): I48.0 - PAROXYSMAL ATRIAL FIBRILLATION (6) Shortness of breath Code(s): R06.02 - SHORTNESS OF BREATH (7) Anemia, chronic renal failure Code(s): N18.9 - CHRONIC KIDNEY DISEASE, UNSPECIFIED; D63.1 - ANEMIA IN CHRONIC KIDNEY DISEASE (8) CKD (chronic kidney disease) Code(s): N18.9 - CHRONIC KIDNEY DISEASE, UNSPECIFIED (9) End stage renal disease Code(s): N18.6 - END STAGE RENAL DISEASE (10) Hyperlipidemia Code(s): E78.5 - HYPERLIPIDEMIA, UNSPECIFIED Qualifiers: Hyperlipidemia type: pure hypercholesterolemia Qualified Code(s): E78.00 - Pure hypercholesterolemia, unspecified; E78.0 - Pure hypercholesterolemia (11) Hypertension Code(s): I10 - ESSENTIAL (PRIMARY) HYPERTENSION Qualifiers: Hypertension type: essential hypertension Qualified Code(s): I10 - Essential (primary) hypertension (12) Congestive heart failure Code(s): I50.9 - HEART FAILURE, UNSPECIFIED (13) Acute and chronic respiratory failure with hypoxia Code(s): J96.21 - ACUTE AND CHRONIC RESPIRATORY FAILURE WITH HYPOXIA Assessment/Plan continue current mgmt dialysis rest as per the team
[2019-10-13] MEDS ORDERED: LABETALOL HCL 100 MG TABLET (FP) ONE (21:31)
[2019-10-13] MEDS: DOCUSATE SODIUM 100 MG CAPSULE (FP) PO SCH (21:50)
[2019-10-13] MEDS: ATORVASTATIN CA 10 MG TABLET (FP) PO SCH (21:50)
[2019-10-14] MEDS ORDERED: LABETALOL HCL 100 MG TABLET (FP) ONE (05:50)
[2019-10-14] MEDS: hydrALAZINE HCL 10 MG TABLET PO SCH (05:55)
[2019-10-14] MEDS: HEPARIN NA (PORCINE) 5,000 UNITS/ML 1ML VIAL SQ SCH ×3 (05:55→21:11)
[2019-10-14] MEDS: LABETALOL HCL 200 MG TABLET (FP) PO SCH (05:56)
[2019-10-14] MEDS: INSULIN SLIDING SCALE (NOVOLOG) 1 VIAL SQ SCH ×4 (06:01→21:11)
[2019-10-14] MEDS: INSULIN (LEVEMIR) 100 UNITS/ML UNITS SQ SCH ×2 (06:32→21:11)
[2019-10-14 06:53] LABS: BASO % 0.3 % (0-2.0); EOS % 5.5 % (0-4.5); HEMATOCRIT 35.7 % (32.4-45.2); HEMOGLOBIN 11.3 GM/dL (10.7-15.3); LYMPH % 9.8 % (8-40); MCH 25.5 pg (25.7-33.7); MCHC 31.5 g/dl (32.0-36.0); MEAN CELL VOLUME 80.9 fl (80-96); MEAN PLT VOLUME 8.8 fl (7.5-11.1); MONO % 7.9 % (3.8-10.2); NEUT % 76.5 % (42.8-82.8); PLATELET COUNT 215 K/MM3 (134-434); RBC 4.41 M/mm3 (3.60-5.2); RDW 18.8 % (11.6-15.6); WHITE BLOOD COUNT 12.9 K/mm3 (4.0-10.0)
[2019-10-14 07:41] LABS: ALBUMIN 3.3 g/dl (3.4-5.0); BILIRUBIN,TOTAL 0.5 mg/dL (0.2-1); BLOOD UREA NITROGEN 52.1 mg/dL (7-18); CALCIUM 8.3 mg/dL (8.5-10.1); CREATININE 5.7 mg/dL (0.55-1.3); POTASSIUM 4.6 mmol/L (3.5-5.1); TOT PROT 6.7 g/dl (6.4-8.2)
[2019-10-14] MEDS: ALBUTEROL SO4 2.5/IPRATROPIUM 0.5 INH SOL 3 ML VIAL.NEB. NEB SCH ×3 (08:19→20:20)
[2019-10-14] MEDS ORDERED: hydrALAZINE HCL 10 MG TABLET PO ONE (08:45)
[2019-10-14] MEDS ORDERED: hydrALAZINE HCL 25 MG TABLET (FP) PO SCH (08:46)
[2019-10-14] MEDS: LOSARTAN POTASSIUM 25 MG TABLET PO SCH (09:11)
[2019-10-14] MEDS: GABAPENTIN 100 MG CAPSULE (FP) PO SCH ×2 (09:11→21:10)
[2019-10-14] MEDS: PANTOPRAZOLE 40 MG TABLET (FP) PO SCH (09:11)
[2019-10-14] MEDS: CLOPIDOGREL BISULFATE 75 MG TABLET (FP) PO SCH (09:11)
[2019-10-14] MEDS: NIFEdipine E.R. 90 MG TABLET (FP) PO SCH (09:12)
[2019-10-14] MEDS ORDERED: SODIUM CHLORIDE 250 ML IV PRN (09:25)
[2019-10-14] MEDS ORDERED: HEPARIN NA (PORCINE) 5,000 UNITS/ML 1ML VIAL IVPUSH ONE (09:25)
[2019-10-14 09:34] LABS: ANISOCYTOSIS 1+; MACROCYTOSIS 1+; PLATELET ESTIMATE NORMAL
--- NOTE | 2019-10-14 10:55 | PN ---
Progress Note, Physician History of Present Illness: pulmonary alert,oob-chair breathing better. hypertensive - Current Medication List Current Medications: Active Medications Acetaminophen (Tylenol -) 650 mg PO Q6H PRN PRN Reason: PAIN LEVEL 7 - 10 Last Admin: 10/12/19 23:52 Dose: 650 mg Albuterol Sulfate (Ventolin 0.083% Nebulizer Soln -) 1 amp NEB RQ4H PRN PRN Reason: SHORT OF BREATH/WHEEZING Albuterol/Ipratropium (Duoneb -) 1 amp NEB RTID [facility] Last Admin: 10/14/19 08:19 Dose: 1 amp Amoxicillin/Clavulanate Potassium (Augmentin - 500mg Tablet) 1 tab PO ONCE ONE Stop: 10/16/19 12:01 Aspirin (Asa -) 81 mg PO DAILY [facility] Last Admin: 10/13/19 11:08 Dose: 81 mg Atorvastatin Calcium (Lipitor -) 10 mg PO HS [facility] Last Admin: 10/13/19 21:50 Dose: 10 mg Clopidogrel Bisulfate (Plavix -) 75 mg PO DAILY [facility] Last Admin: 10/14/19 09:11 Dose: 75 mg Docusate Sodium (Colace -) 100 mg PO HS [facility] Last Admin: 10/13/19 21:50 Dose: 100 mg Gabapentin (Neurontin -) 100 mg PO BID [facility] Last Admin: 10/14/19 09:11 Dose: 100 mg Heparin Sodium (Porcine) (Heparin -) 5,000 unit SQ TID [facility] Last Admin: 10/14/19 05:55 Dose: 5,000 unit Heparin Sodium (Porcine) (Heparin -) 500 unit IVPUSH ONCE ONE Stop: 10/14/19 09:26 Heparin Sodium (Porcine) (Heparin -) 300 unit IVPUSH Q1H [facility] Stop: 10/14/19 11:31 Hydralazine HCl (Apresoline -) 25 mg PO TID [facility] Sodium Chloride (Normal Saline -) 250 mls @ 3,000 mls/hr IV PRN PRN PRN Reason: Hypotension during Dialysis Stop: 10/13/19 14:47 Sodium Chloride (Normal Saline -) 250 mls @ 3,000 mls/hr IV PRN PRN PRN Reason: Hypotension during Dialysis Stop: 10/15/19 09:25 Insulin Aspart (Novolog Vial Sliding Scale -) 1 vial SQ [facility]; Protocol Last Admin: 10/14/19 06:01 Dose: Not Given Insulin Detemir (Levemir Vial) 15 units SQ HS [facility] Last Admin: 10/13/19 21:50 Dose: 15 units Insulin Detemir (Levemir Vial) 20 units SQ AM [facility] Last Admin: 10/14/19 06:32 Dose: 20 units Labetalol HCl (Normodyne -) 200 mg PO TID [facility] Last Admin: 10/14/19 05:56 Dose: 200 mg Losartan Potassium (Cozaar -) 50 mg PO DAILY [facility] Last Admin: 10/14/19 09:11 Dose: 50 mg Nifedipine (Procardia Xl -) 90 mg PO DAILY [facility] Last Admin: 10/14/19 09:12 Dose: 90 mg Pantoprazole Sodium (Protonix -) 40 mg PO DAILY [facility] Last Admin: 10/14/19 09:11 Dose: 40 mg - Objective Vital Signs: Vital Signs Temperature 97.7 F 10/14/19 06:00 Pulse Rate 53 L 10/14/19 06:00 Respiratory Rate 20 10/14/19 06:00 Blood Pressure 203/62 H 10/14/19 06:00 O2 Sat by Pulse Oximetry (%) 97 10/14/19 02:27 Constitutional: Yes: Well Nourished, Calm Eyes: Yes: WNL HENT: Yes: WNL Neck: Yes: WNL Cardiovascular: Yes: Regular Rate and Rhythm, S1, S2 Respiratory: Yes: CTA Bilaterally Gastrointestinal: Yes: Normal Bowel Sounds, Soft Extremities: Yes: WNL Edema: No Labs: CBC, BMP 10/14/19 06:10 10/14/19 06:10 Problem List - Problems (1) Hypoxia Code(s): R09.02 - HYPOXEMIA (2) ESRD (end stage renal disease) on dialysis Code(s): N18.6 - END STAGE RENAL DISEASE; Z99.2 - DEPENDENCE ON RENAL DIALYSIS (3) Acute on chronic diastolic (congestive) heart failure Code(s): I50.33 - ACUTE ON CHRONIC DIASTOLIC (CONGESTIVE) HEART FAILURE (4) Anemia Code(s): D64.9 - ANEMIA, UNSPECIFIED Qualifiers: Anemia type: unspecified type Qualified Code(s): D64.9 - Anemia, unspecified (5) Paroxysmal atrial fibrillation Code(s): I48.0 - PAROXYSMAL ATRIAL FIBRILLATION (6) Shortness of breath Code(s): R06.02 - SHORTNESS OF BREATH (7) Anemia, chronic renal failure Code(s): N18.9 - CHRONIC KIDNEY DISEASE, UNSPECIFIED; D63.1 - ANEMIA IN CHRONIC KIDNEY DISEASE (8) CKD (chronic kidney disease) Code(s): N18.9 - CHRONIC KIDNEY DISEASE, UNSPECIFIED (9) End stage renal disease Code(s): N18.6 - END STAGE RENAL DISEASE (10) Hyperlipidemia Code(s): E78.5 - HYPERLIPIDEMIA, UNSPECIFIED Qualifiers: Hyperlipidemia type: pure hypercholesterolemia Qualified Code(s): E78.00 - Pure hypercholesterolemia, unspecified; E78.0 - Pure hypercholesterolemia (11) Hypertension Code(s): I10 - ESSENTIAL (PRIMARY) HYPERTENSION Qualifiers: Hypertension type: essential hypertension Qualified Code(s): I10 - Essential (primary) hypertension (12) Congestive heart failure Code(s): I50.9 - HEART FAILURE, UNSPECIFIED (13) Acute and chronic respiratory failure with hypoxia Code(s): J96.21 - ACUTE AND CHRONIC RESPIRATORY FAILURE WITH HYPOXIA Assessment/Plan Problem List - Problems (1) Acute on chronic diastolic (congestive) heart failure Code(s): I50.33 - ACUTE ON CHRONIC DIASTOLIC (CONGESTIVE) HEART FAILURE Assessment/Plan Acute on Chronic Hypoxic Respiratory Failure clinically improving Acute on Chronic Diastolic Heart Failure improving ESRD on HD Pulmonary HTN Acute Bronchitis/URI r/o Pneumonia HTN DM COPD - HD per renal with ultrafiltration - daily weights - titrate bp meds - O2 to keep Spo2 >90% - inhaled bronchodilators - DVT prophylaxis DR VIVAS
--- NOTE | 2019-10-14 11:16 | PN ---
Progress Note, Physician Chief Complaint: Not in distress History of Present Illness: Patient was seen and examined. Awake and alert. Chart was reviewed Denies chest pain, SOB or palpitations Hypertensive with SBP up in 200's - Current Medication List Current Medications: Active Medications Acetaminophen (Tylenol -) 650 mg PO Q6H PRN PRN Reason: PAIN LEVEL 7 - 10 Last Admin: 10/12/19 23:52 Dose: 650 mg Albuterol Sulfate (Ventolin 0.083% Nebulizer Soln -) 1 amp NEB RQ4H PRN PRN Reason: SHORT OF BREATH/WHEEZING Albuterol/Ipratropium (Duoneb -) 1 amp NEB RTID [facility] Last Admin: 10/14/19 08:19 Dose: 1 amp Amoxicillin/Clavulanate Potassium (Augmentin - 500mg Tablet) 1 tab PO ONCE ONE Stop: 10/16/19 12:01 Aspirin (Asa -) 81 mg PO DAILY [facility] Last Admin: 10/13/19 11:08 Dose: 81 mg Atorvastatin Calcium (Lipitor -) 10 mg PO HS [facility] Last Admin: 10/13/19 21:50 Dose: 10 mg Clopidogrel Bisulfate (Plavix -) 75 mg PO DAILY [facility] Last Admin: 10/14/19 09:11 Dose: 75 mg Docusate Sodium (Colace -) 100 mg PO HS [facility] Last Admin: 10/13/19 21:50 Dose: 100 mg Gabapentin (Neurontin -) 100 mg PO BID [facility] Last Admin: 10/14/19 09:11 Dose: 100 mg Heparin Sodium (Porcine) (Heparin -) 5,000 unit SQ TID [facility] Last Admin: 10/14/19 05:55 Dose: 5,000 unit Heparin Sodium (Porcine) (Heparin -) 500 unit IVPUSH ONCE ONE Stop: 10/14/19 09:26 Heparin Sodium (Porcine) (Heparin -) 300 unit IVPUSH Q1H [facility] Stop: 10/14/19 11:31 Hydralazine HCl (Apresoline -) 25 mg PO TID [facility] Sodium Chloride (Normal Saline -) 250 mls @ 3,000 mls/hr IV PRN PRN PRN Reason: Hypotension during Dialysis Stop: 10/13/19 14:47 Sodium Chloride (Normal Saline -) 250 mls @ 3,000 mls/hr IV PRN PRN PRN Reason: Hypotension during Dialysis Stop: 10/15/19 09:25 Insulin Aspart (Novolog Vial Sliding Scale -) 1 vial SQ ACHS [facility]; Protocol Last Admin: 10/14/19 06:01 Dose: Not Given Insulin Detemir (Levemir Vial) 15 units SQ HS [facility] Last Admin: 10/13/19 21:50 Dose: 15 units Insulin Detemir (Levemir Vial) 20 units SQ AM [facility] Last Admin: 10/14/19 06:32 Dose: 20 units Labetalol HCl (Normodyne -) 200 mg PO TID [facility] Last Admin: 10/14/19 05:56 Dose: 200 mg Losartan Potassium (Cozaar -) 50 mg PO DAILY [facility] Last Admin: 10/14/19 09:11 Dose: 50 mg Nifedipine (Procardia Xl -) 90 mg PO DAILY [facility] Last Admin: 10/14/19 09:12 Dose: 90 mg Pantoprazole Sodium (Protonix -) 40 mg PO DAILY [facility] Last Admin: 10/14/19 09:11 Dose: 40 mg - Objective Vital Signs: Vital Signs Temperature 97.7 F 10/14/19 06:00 Pulse Rate 53 L 10/14/19 06:00 Respiratory Rate 20 10/14/19 06:00 Blood Pressure 203/62 H 10/14/19 06:00 O2 Sat by Pulse Oximetry (%) 97 10/14/19 02:27 Eyes: Yes: PERRL HENT: Yes: Atraumatic Neck: Yes: Supple Cardiovascular: Yes: Regular Rate and Rhythm, S1, S2 Respiratory: Yes: CTA Bilaterally Gastrointestinal: Yes: Normal Bowel Sounds, Soft. No: Tenderness Edema: No Additional Findings/Remarks: - Review of Systems Constitutional: denies: Chills, Fever Cardiovascular: reports: Shortness of Breath. denies: Chest Pain, Palpitations Respiratory: reports: Cough, SOB Gastrointestinal: denies: Abdominal Pain, Constipation, Diarrhea, Melena, Nausea , Rectal Bleeding, Vomiting Musculoskeletal: denies: Back Pain, Joint Pain Neurological: denies: Dizziness, Headache, Seizure, Syncope Labs: CBC, BMP 10/14/19 06:10 10/14/19 06:10 Problem List - Problems (1) Acute and chronic respiratory failure with hypoxia Code(s): J96.21 - ACUTE AND CHRONIC RESPIRATORY FAILURE WITH HYPOXIA (2) Anemia Code(s): D64.9 - ANEMIA, UNSPECIFIED (3) Pneumonia Code(s): J18.9 - PNEUMONIA, UNSPECIFIED ORGANISM Qualifiers: Pneumonia type: due to unspecified organism Laterality: left Lung location: lower lobe of lung Qualified Code(s): J18.9 - Pneumonia, unspecified organism (4) ESRD (end stage renal disease) on dialysis Code(s): N18.6 - END STAGE RENAL DISEASE; Z99.2 - DEPENDENCE ON RENAL DIALYSIS (5) Acute on chronic diastolic (congestive) heart failure Code(s): I50.33 - ACUTE ON CHRONIC DIASTOLIC (CONGESTIVE) HEART FAILURE (6) Diabetes type 2, controlled Code(s): E11.9 - TYPE 2 DIABETES MELLITUS WITHOUT COMPLICATIONS Qualifiers: Diabetes mellitus complication status: with kidney complications Chronic kidney disease stage: stage 5, not on chronic dialysis (7) Hyperlipidemia Code(s): E78.5 - HYPERLIPIDEMIA, UNSPECIFIED Qualifiers: Hyperlipidemia type: pure hypercholesterolemia Qualified Code(s): E78.00 - Pure hypercholesterolemia, unspecified; E78.0 - Pure hypercholesterolemia (8) Hypertension Code(s): I10 - ESSENTIAL (PRIMARY) HYPERTENSION Qualifiers: Hypertension type: essential hypertension Qualified Code(s): I10 - Essential (primary) hypertension (9) Bradycardia Code(s): R00.1 - BRADYCARDIA, UNSPECIFIED Assessment/Plan 1. Sinus bradycardia with episode of LOC, etiology not determined 2. ESRD on HD 3. COPD 4. HTN 5. Hypercholesterolemia 6. DM 7. LV diastolic dysfunction currently euvolemic 8. Pneumonia PLAN: 1. BP still elevated 2. Continue Procardia XL to 90 mg QD, increase Losartan to 100 mg QD (if OK with Renal) and consider increasing Labetalol to 300 mg TID (to be used with caution in view of episode of bradycardia). Increase Hydralazine to 50 mg BID or TID 3. Continue ASA 81 mg QD, but unclear as to reason for Plavix 4. Continue statin therapy 5. HD as per renal service. Monitor renal function and electrolytes 6. Antibiotic coverage 7. Echocardiography to assess LV/RV and valvular function if not done recently Further plans are to follow Walker Miranda MD
[2019-10-14] MEDS: ACETAMINOPHEN 325 MG TABLET (FP) PO PRN (11:34)
--- NOTE | 2019-10-14 11:37 | PN ---
Physical Exam: SUBJECTIVE: Patient seen and examined, sitting in chair, reports headache today. OBJECTIVE: Patient is a 73 year old female with a significant past medical history of ESRD- via left av fistula, diabetes, hypertension, diastolic CHF, and COPD (on home oxygen) who comes in with c/o of 2 days of sore throat/cough and malaise. She endorses subjective fevers at home with chills. In the ED she was placed on bipap for acute hypoxic respiratory failure (desaurated to the 70s in the ED) and being ruled out for pneumonia. bp elevated and not yet at goal. increased hydralazine to 50mg tid Hypertensive with SBP up in 200's Vital Signs Period Temp Pulse Resp BP Sys/Parker Pulse Ox Last 24 Hr 97.7 F-98.2 F 53-66 18-20 142-203/62-77 97-99 GENERAL: The patient is awake, alert and in no acute distress. primarily speaks armenian. HEAD: Normal with no signs of trauma. EYES: PERRL, extraocular movements intact, sclera anicteric, conjunctiva clear. No ptosis. ENT: Ears normal, nares patent, oropharynx clear without exudates, moist mucous membranes. NECK: Trachea midline, full range of motion, supple. LUNGS: Breath sounds diminished, appears congested HEART: Regular rate and rhythm EXT: (R AVF noted, +bruit/thrill) ABDOMEN: Soft, nontender, nondistended, normoactive bowel sounds, no guarding, no rebound, no hepatosplenomegaly, no masses. Laboratory Results - last 24 hr 10/13/19 10/13/19 10/14/19 16:53 21:49 05:54 WBC RBC Hgb Hct MCV MCH MCHC RDW Plt Count MPV Absolute Neuts (auto) Neutrophils % Neutrophils % (Manual) Band Neutrophils % Lymphocytes % Lymphocytes % (Manual) Monocytes % Monocytes % (Manual) Eosinophils % Eosinophils % (Manual) Basophils % Basophils % (Manual) Myelocytes % (Man) Promyelocytes % (Man) Blast Cells % (Manual) Nucleated RBC % Metamyelocytes Hypochromia Platelet Estimate Polychromasia Poikilocytosis Anisocytosis Microcytosis Macrocytosis Stomatocytes Sodium Potassium Chloride Carbon Dioxide Anion Gap BUN Creatinine Est GFR (CKD-EPI)AfAm Est GFR (CKD-EPI)NonAf POC Glucometer 169 240 131 Random Glucose Calcium Magnesium Total Bilirubin AST ALT Alkaline Phosphatase Total Protein Albumin 10/14/19 10/14/19 06:10 06:10 WBC 12.9 H RBC 4.41 Hgb 11.3 Hct 35.7 MCV 80.9 MCH 25.5 L MCHC 31.5 L RDW 18.8 H Plt Count 215 MPV 8.8 Absolute Neuts (auto) 9.9 H Neutrophils % 76.5 Neutrophils % (Manual) 64.7 Band Neutrophils % 0.0 Lymphocytes % 9.8 Lymphocytes % (Manual) 15.7 D Monocytes % 7.9 Monocytes % (Manual) 4 Eosinophils % 5.5 H D Eosinophils % (Manual) 7.8 H D Basophils % 0.3 Basophils % (Manual) 1.0 D Myelocytes % (Man) 1 D Promyelocytes % (Man) 0 Blast Cells % (Manual) 0 Nucleated RBC % 0 Metamyelocytes 2 Hypochromia 1+ Platelet Estimate Normal Polychromasia 1+ Poikilocytosis 1+ Anisocytosis 1+ Microcytosis 1+ Macrocytosis 1+ Stomatocytes 1+ Sodium 137 Potassium 4.6 Chloride 98 Carbon Dioxide 28 Anion Gap 10 BUN 52.1 H Creatinine 5.7 H Est GFR (CKD-EPI)AfAm 7.89 Est GFR (CKD-EPI)NonAf 6.81 POC Glucometer Random Glucose 123 H Calcium 8.3 L Magnesium 2.0 Total Bilirubin 0.5 AST 19 ALT 27 Alkaline Phosphatase 140 H Total Protein 6.7 Albumin 3.3 L Active Medications Generic Name Dose Route Start Last Admin Trade Name Freq PRN Reason Stop Dose Admin Acetaminophen 650 mg 10/10/19 18:43 10/14/19 11:34 Tylenol - PO 650 mg Q6H PRN Administration PAIN LEVEL 7 - 10 Albuterol Sulfate 1 amp 10/07/19 12:38 Ventolin 0.083% Nebulizer Soln - NEB RQ4H PRN SHORT OF BREATH/WHEEZING Albuterol/Ipratropium 1 amp 10/07/19 14:00 10/14/19 08:19 Duoneb - NEB 1 amp RTID [facility]ARINA Administration Amoxicillin/Clavulanate Potassium 1 tab 10/16/19 12:00 Augmentin - 500mg Tablet PO 10/16/19 12:01 ONCE ONE Aspirin 81 mg 10/07/19 10:00 10/13/19 11:08 Asa - PO 81 mg DAILY [facility] Administration Atorvastatin Calcium 10 mg 10/07/19 22:00 10/13/19 21:50 Lipitor - PO 10 mg HS [facility]INA Administration Clopidogrel Bisulfate 75 mg 10/07/19 10:00 10/14/19 09:11 Plavix - PO 75 mg DAILY [facility] Administration Docusate Sodium 100 mg 10/07/19 22:00 10/13/19 21:50 Colace - PO 100 mg HS [facility]INA Administration Gabapentin 100 mg 10/07/19 10:00 10/14/19 09:11 Neurontin - PO 100 mg BID [facility] Administration Heparin Sodium (Porcine) 5,000 unit 10/07/19 06:00 10/14/19 05:55 Heparin - SQ 5,000 unit TID [facility] Administration Heparin Sodium (Porcine) 500 unit 10/14/19 09:25 Heparin - IVPUSH 10/14/19 09:26 ONCE ONE Heparin Sodium (Porcine) 300 unit 10/14/19 09:30 Heparin - IVPUSH 10/14/19 11:31 Q1H [facility] Hydralazine HCl 50 mg 10/14/19 11:18 Apresoline - PO TID [facility] Sodium Chloride 250 mls @ 3,000 mls/hr 10/12/19 14:47 Normal Saline - IV 10/13/19 14:47 PRN PRN Hypotension during Dialysis Sodium Chloride 250 mls @ 3,000 mls/hr 10/14/19 09:25 Normal Saline - IV 10/15/19 09:25 PRN PRN Hypotension during Dialysis Insulin Aspart 1 vial 10/09/19 22:00 10/14/19 11:34 Novolog Vial Sliding Scale - SQ 6 units ACHS [facility] Administration Protocol Insulin Detemir 15 units 10/08/19 12:53 10/13/19 21:50 Levemir Vial SQ 15 units HS [facility] Administration Insulin Detemir 20 units 10/13/19 07:00 10/14/19 06:32 Levemir Vial SQ 20 units AM [facility] Administration Labetalol HCl 300 mg 10/14/19 11:19 Normodyne - PO TID [facility] Losartan Potassium 50 mg 10/12/19 17:34 10/14/19 09:11 Cozaar - PO 50 mg DAILY [facility] Administration Nifedipine 90 mg 10/12/19 17:33 10/14/19 09:12 Procardia Xl - PO 90 mg DAILY [facility] Administration Pantoprazole Sodium 40 mg 10/07/19 10:00 10/14/19 09:11 Protonix - PO 40 mg DAILY [facility] Administration ASSESSMENT/PLAN: Problem List - Problems (1) Acute and chronic respiratory failure with hypoxia Assessment/Plan: CXR with prominent hilar markings on 2 liters of nasal cannula. patient is home oxygen dependent Code(s): J96.21 - ACUTE AND CHRONIC RESPIRATORY FAILURE WITH HYPOXIA (2) Pneumonia Assessment/Plan: on augmentin per ID Code(s): J18.9 - PNEUMONIA, UNSPECIFIED ORGANISM Qualifiers: Pneumonia type: due to unspecified organism Laterality: left Lung location: lower lobe of lung Qualified Code(s): J18.9 - Pneumonia, unspecified organism (3) Hypoxia Assessment/Plan: supplemental O2 to keep Spo2 >90% solumedrol stopped, monitor off c/w inhaled bronchodilators BiPap prn Code(s): R09.02 - HYPOXEMIA (4) ESRD (end stage renal disease) on dialysis Assessment/Plan: dialysis today renal following Code(s): N18.6 - END STAGE RENAL DISEASE; Z99.2 - DEPENDENCE ON RENAL DIALYSIS (5) AV fistula Code(s): I77.0 - ARTERIOVENOUS FISTULA, ACQUIRED (6) Sepsis Code(s): A41.9 - SEPSIS, UNSPECIFIED ORGANISM (7) Anemia Assessment/Plan: monitor with daily labs Code(s): D64.9 - ANEMIA, UNSPECIFIED (8) Diabetes Assessment/Plan: on novolog and levemir diabetic diet Code(s): E11.9 - TYPE 2 DIABETES MELLITUS WITHOUT COMPLICATIONS Qualifiers: Diabetes mellitus complication status: with kidney complications Diabetes mellitus complication detail: with chronic kidney disease Chronic kidney disease stage: on chronic dialysis (9) Hypertension Assessment/Plan: bp elevated, cardiac medications titrated by cardiology on Procardia XL 90 mg, Losartan to 100 mg qd, Labetalol to 300 mg TID, hydralazine to 50 mg TID Code(s): I10 - ESSENTIAL (PRIMARY) HYPERTENSION (10) Prophylactic measure Assessment/Plan: FEN monitor electrolytes daily weights no additional IVF diabetic/renal diet DVT heparin sq Disapo maintain on tele full code discharge planning Code(s): Z29.9 - ENCOUNTER FOR PROPHYLACTIC MEASURES, UNSPECIFIED Visit type - Emergency Visit Emergency Visit: Yes ED Registration Date: 10/06/19 Care time: The patient presented to the Emergency Department on the above date and was hospitalized for further evaluation of their emergent condition. - New Patient This patient is new to me today: No - Critical Care Critical Care patient: No - Discharge Referral Referred to [facility] No
[2019-10-14] MEDS: ASPIRIN 81 MG CHEWABLE TABLETS PO SCH (12:17)
--- NOTE | 2019-10-14 13:59 | PN ---
Progress Note, Physician History of Present Illness: events noted better s/p dialysis - Current Medication List Current Medications: Active Medications Acetaminophen (Tylenol -) 650 mg PO Q6H PRN PRN Reason: PAIN LEVEL 7 - 10 Last Admin: 10/14/19 11:34 Dose: 650 mg Albuterol Sulfate (Ventolin 0.083% Nebulizer Soln -) 1 amp NEB RQ4H PRN PRN Reason: SHORT OF BREATH/WHEEZING Albuterol/Ipratropium (Duoneb -) 1 amp NEB RTID [facility] Last Admin: 10/14/19 08:19 Dose: 1 amp Amoxicillin/Clavulanate Potassium (Augmentin - 500mg Tablet) 1 tab PO ONCE ONE Stop: 10/16/19 12:01 Aspirin (Asa -) 81 mg PO DAILY [facility] Last Admin: 10/14/19 12:17 Dose: 81 mg Atorvastatin Calcium (Lipitor -) 10 mg PO HS [facility] Last Admin: 10/13/19 21:50 Dose: 10 mg Clopidogrel Bisulfate (Plavix -) 75 mg PO DAILY [facility] Last Admin: 10/14/19 09:11 Dose: 75 mg Docusate Sodium (Colace -) 100 mg PO HS [facility] Last Admin: 10/13/19 21:50 Dose: 100 mg Gabapentin (Neurontin -) 100 mg PO BID [facility] Last Admin: 10/14/19 09:11 Dose: 100 mg Heparin Sodium (Porcine) (Heparin -) 5,000 unit SQ TID [facility] Last Admin: 10/14/19 05:55 Dose: 5,000 unit Heparin Sodium (Porcine) (Heparin -) 500 unit IVPUSH ONCE ONE Stop: 10/14/19 09:26 Heparin Sodium (Porcine) (Heparin -) 300 unit IVPUSH Q1H [facility] Stop: 10/14/19 11:31 Hydralazine HCl (Apresoline -) 50 mg PO TID [facility] Sodium Chloride (Normal Saline -) 250 mls @ 3,000 mls/hr IV PRN PRN PRN Reason: Hypotension during Dialysis Stop: 10/13/19 14:47 Sodium Chloride (Normal Saline -) 250 mls @ 3,000 mls/hr IV PRN PRN PRN Reason: Hypotension during Dialysis Stop: 10/15/19 09:25 Insulin Aspart (Novolog Vial Sliding Scale -) 1 vial SQ [facility]; Protocol Last Admin: 10/14/19 11:34 Dose: 6 units Insulin Detemir (Levemir Vial) 15 units SQ HS [facility] Last Admin: 10/13/19 21:50 Dose: 15 units Insulin Detemir (Levemir Vial) 20 units SQ AM [facility] Last Admin: 10/14/19 06:32 Dose: 20 units Labetalol HCl (Normodyne -) 300 mg PO TID [facility] Losartan Potassium (Cozaar -) 50 mg PO DAILY [facility] Last Admin: 10/14/19 09:11 Dose: 50 mg Nifedipine (Procardia Xl -) 90 mg PO DAILY [facility] Last Admin: 10/14/19 09:12 Dose: 90 mg Pantoprazole Sodium (Protonix -) 40 mg PO DAILY [facility] Last Admin: 10/14/19 09:11 Dose: 40 mg - Objective Vital Signs: Vital Signs Temperature 98.4 F 10/14/19 12:00 Pulse Rate 61 10/14/19 12:00 Respiratory Rate 20 10/14/19 12:00 Blood Pressure 205/68 H 10/14/19 12:00 O2 Sat by Pulse Oximetry (%) 99 10/14/19 09:00 Constitutional: Yes: No Distress, Calm Cardiovascular: Yes: S1, S2 Respiratory: Yes: Regular, On Nasal O2 Gastrointestinal: Yes: Normal Bowel Sounds, Soft Musculoskeletal: Yes: WNL Extremities: Yes: WNL Neurological: Yes: Alert, Oriented Psychiatric: Yes: Alert, Oriented Labs: CBC, BMP 10/14/19 06:10 10/14/19 06:10 Assessment/Plan Problem List - Problems (1) Hypoxia Code(s): R09.02 - HYPOXEMIA (2) ESRD (end stage renal disease) on dialysis Code(s): N18.6 - END STAGE RENAL DISEASE; Z99.2 - DEPENDENCE ON RENAL DIALYSIS (3) Acute on chronic diastolic (congestive) heart failure Code(s): I50.33 - ACUTE ON CHRONIC DIASTOLIC (CONGESTIVE) HEART FAILURE (4) Anemia Code(s): D64.9 - ANEMIA, UNSPECIFIED Qualifiers: Anemia type: unspecified type Qualified Code(s): D64.9 - Anemia, unspecified (5) Paroxysmal atrial fibrillation Code(s): I48.0 - PAROXYSMAL ATRIAL FIBRILLATION (6) Shortness of breath Code(s): R06.02 - SHORTNESS OF BREATH (7) Anemia, chronic renal failure Code(s): N18.9 - CHRONIC KIDNEY DISEASE, UNSPECIFIED; D63.1 - ANEMIA IN CHRONIC KIDNEY DISEASE (8) CKD (chronic kidney disease) Code(s): N18.9 - CHRONIC KIDNEY DISEASE, UNSPECIFIED (9) End stage renal disease Code(s): N18.6 - END STAGE RENAL DISEASE (10) Hyperlipidemia Code(s): E78.5 - HYPERLIPIDEMIA, UNSPECIFIED Qualifiers: Hyperlipidemia type: pure hypercholesterolemia Qualified Code(s): E78.00 - Pure hypercholesterolemia, unspecified; E78.0 - Pure hypercholesterolemia (11) Hypertension Code(s): I10 - ESSENTIAL (PRIMARY) HYPERTENSION Qualifiers: Hypertension type: essential hypertension Qualified Code(s): I10 - Essential (primary) hypertension (12) Congestive heart failure Code(s): I50.9 - HEART FAILURE, UNSPECIFIED (13) Acute and chronic respiratory failure with hypoxia Code(s): J96.21 - ACUTE AND CHRONIC RESPIRATORY FAILURE WITH HYPOXIA Assessment/Plan continue current mgmt dialysis rest as per the team
--- NOTE | 2019-10-14 14:44 | ECHO ---
Version: 1 Name: AIDA BONILLA Exam: Adult Echocardiogram Study Date: 10/14/2019, 1:34 PM Age: 73 Years MMode/2D Measurements & Calculations IVSd: 1.43 cm LVIDs: 2.6 cm LVIDd: 3.7 cm LVPWd: 1.90 cm ACS: 1.87 cm Ao root diam: 2.8 cm LVOT diam: 1.75 cm LA dimension: 4.3 cm Doppler Measurements & Calculations MV E max serge: 119.0 cm/sec Med E/e': 33.1 MV A max serge: 123.0 cm/sec Med Peak E' Serge: 3.6 cm/sec MV E/A: 0.97 Lat E/e': 17.1 Lat Peak E' Serge: 7.0 cm/sec Ao max P.6 mmHg KIMBERLY(I,D): 1.61 cm Ao mean P.9 mmHg LV V1 mean: 83.4 cm/sec Ao V2 max: 197.1 cm/sec LV V1 mean P.3 mmHg AI P1/2t: 579.3 msec TR max serge: 201.8 cm/sec TR max P.3 mmHg Procedure A complete two-dimensional transthoracic echocardiogram was performed (2D, M-mode, Doppler and color flow Doppler). Left Ventricle There is severe concentric left ventricular hypertrophy. Left ventricular systolic function is skyler l. Ejection Fraction = 55%. Right Ventricle The right ventricle is normal in size and function. Atria The left atrium is mildly dilated. Right atrial size is normal. Mitral Valve There is severe mitral annular calcification. There is trace mitral regurgitation. Tricuspid Valve The tricuspid valve is normal in structure and function. Insufficient TR to estimate plmonary artery pressure. Aortic Valve There is moderate aortic sclerosis.;. No hemodynamically significant valvular aortic stenosis. Mild aortic regurgitation. Pulmonic Valve The pulmonic valve is not well visualized. Great Vessels The aortic root is normal size. Pericardium/Pleura There is no pericardial effusion. Summary Statements There is severe concentric left ventricular hypertrophy. Left ventricular systolic function is normal. The right ventricle is normal in size and function. The left atrium is mildly dilated. There is severe mitral annular calcification. Andre Page 10/14/2019, 2:43 PM Ordering Physician: Chloe Miranda Referring Physician: CHLOE MIRANDA Performed By: Leslie Irizarry
[2019-10-14] MEDS ORDERED: LOSARTAN POTASSIUM 50 MG TABLET (FP) PO ONE (15:27)
--- NOTE | 2019-10-14 15:31 | PN ---
Progress Note (short form) - Note Progress Note: Renal follow up for ESRD on HD Seen and examined at the bedside s/p dialysis this AM With 3L UF has headache and dizziness, BP very elevated no chest pain, N/V/D Vital Signs Temperature 98.4 F 10/14/19 12:00 Pulse Rate 61 10/14/19 12:00 Respiratory Rate 20 10/14/19 12:00 Blood Pressure 205/68 H 10/14/19 12:00 O2 Sat by Pulse Oximetry (%) 99 10/14/19 09:00 Intake & Output 10/11/19 10/12/19 10/13/19 10/14/19 23:59 23:59 23:59 23:59 Intake Total 2820 1705 1500 Output Total 2500 3500 Balance 320 1705 -2000 Weight 69.626 kg 66.678 kg NAD RRR, no M/R Dec BS, no wheeze soft NT/ND no LE edema CBC, BMP 10/14/19 06:10 10/14/19 06:10 Current Medications Acetaminophen (Tylenol -) 650 mg PO Q6H PRN PRN Reason: PAIN LEVEL 7 - 10 Last Admin: 10/14/19 11:34 Dose: 650 mg Albuterol Sulfate (Ventolin 0.083% Nebulizer Soln -) 1 amp NEB RQ4H PRN PRN Reason: SHORT OF BREATH/WHEEZING Albuterol/Ipratropium (Duoneb -) 1 amp NEB RTID KARINA Last Admin: 10/14/19 08:19 Dose: 1 amp Amoxicillin/Clavulanate Potassium (Augmentin - 500mg Tablet) 1 tab PO ONCE ONE Stop: 10/16/19 12:01 Aspirin (Asa -) 81 mg PO DAILY [facility] Last Admin: 10/14/19 12:17 Dose: 81 mg Atorvastatin Calcium (Lipitor -) 10 mg PO HS [facility] Last Admin: 10/13/19 21:50 Dose: 10 mg Clopidogrel Bisulfate (Plavix -) 75 mg PO DAILY [facility] Last Admin: 10/14/19 09:11 Dose: 75 mg Docusate Sodium (Colace -) 100 mg PO HS [facility] Last Admin: 10/13/19 21:50 Dose: 100 mg Gabapentin (Neurontin -) 100 mg PO BID [facility] Last Admin: 10/14/19 09:11 Dose: 100 mg Heparin Sodium (Porcine) (Heparin -) 5,000 unit SQ TID [facility] Last Admin: 10/14/19 14:06 Dose: 5,000 unit Heparin Sodium (Porcine) (Heparin -) 500 unit IVPUSH ONCE ONE Stop: 10/14/19 09:26 Heparin Sodium (Porcine) (Heparin -) 300 unit IVPUSH Q1H KARINA Stop: 10/14/19 11:31 Hydralazine HCl (Apresoline -) 50 mg PO TID [facility] Sodium Chloride (Normal Saline -) 250 mls @ 3,000 mls/hr IV PRN PRN PRN Reason: Hypotension during Dialysis Stop: 10/13/19 14:47 Sodium Chloride (Normal Saline -) 250 mls @ 3,000 mls/hr IV PRN PRN PRN Reason: Hypotension during Dialysis Stop: 10/15/19 09:25 Insulin Aspart (Novolog Vial Sliding Scale -) 1 vial SQ ACHS [facility]; Protocol Last Admin: 10/14/19 11:34 Dose: 6 units Insulin Detemir (Levemir Vial) 15 units SQ HS [facility] Last Admin: 10/13/19 21:50 Dose: 15 units Insulin Detemir (Levemir Vial) 20 units SQ AM [facility] Last Admin: 10/14/19 06:32 Dose: 20 units Labetalol HCl (Normodyne -) 300 mg PO TID [facility] Losartan Potassium (Cozaar -) 50 mg PO ONCE ONE Stop: 10/14/19 15:28 Losartan Potassium (Cozaar -) 100 mg PO DAILY [facility] Nifedipine (Procardia Xl -) 90 mg PO DAILY [facility] Last Admin: 10/14/19 09:12 Dose: 90 mg Pantoprazole Sodium (Protonix -) 40 mg PO DAILY [facility] Last Admin: 10/14/19 09:11 Dose: 40 mg 73 year old woman with history of ESRD on HD (TTS), diastolic HF, COPD who presented with cough and fever and admitted for URI +/- volume overload. 1. ESRD on HD 2. Hyperkalemia 3. Hyponatremia 4. URI/Fever 5. Mild pulmonary congestion 6. Anemia Tolerated dialysis well this am Renal diet and 1.2L fluid restriction. BP very high, BP meds titrated up by cardiology. Will increase Losartan to 100mg Daily (to get extra 50mg today) Low salt diet on PO Abx Thank you Alf Mcmahan DO
[2019-10-14] MEDS: HEPARIN NA (PORCINE) 5,000 UNITS/ML 1ML VIAL IVPUSH SCH ×3 (16:20→17:28)
[2019-10-14 16:55] VITALS: BMI 26.9
[2019-10-14] MEDS: hydrALAZINE HCL 50 MG TABLET (FP) PO SCH ×2 (18:38→21:11)
[2019-10-14] MEDS: LABETALOL HCL 100 MG TABLET (FP) PO SCH ×2 (18:39→21:10)
[2019-10-14] MEDS: DOCUSATE SODIUM 100 MG CAPSULE (FP) PO SCH (21:10)
[2019-10-14] MEDS: ATORVASTATIN CA 10 MG TABLET (FP) PO SCH (21:11)
[2019-10-15] MEDS: INSULIN SLIDING SCALE (NOVOLOG) 1 VIAL SQ SCH ×2 (06:02→11:19)
[2019-10-15] MEDS: LABETALOL HCL 100 MG TABLET (FP) PO SCH ×2 (06:05→13:19)
[2019-10-15] MEDS: hydrALAZINE HCL 50 MG TABLET (FP) PO SCH ×2 (06:05→13:19)
[2019-10-15] MEDS: INSULIN (LEVEMIR) 100 UNITS/ML UNITS SQ SCH (06:05)
[2019-10-15] MEDS: HEPARIN NA (PORCINE) 5,000 UNITS/ML 1ML VIAL SQ SCH ×2 (06:05→13:21)
[2019-10-15] MEDS: ALBUTEROL SO4 2.5/IPRATROPIUM 0.5 INH SOL 3 ML VIAL.NEB. NEB SCH ×2 (07:46→14:54)
[2019-10-15] MEDS ORDERED: LOSARTAN POTASSIUM 50 MG TABLET (FP) PO SCH (10:00)
[2019-10-15] MEDS: GABAPENTIN 100 MG CAPSULE (FP) PO SCH (10:22)
[2019-10-15] MEDS: ASPIRIN 81 MG CHEWABLE TABLETS PO SCH (10:22)
[2019-10-15] MEDS: PANTOPRAZOLE 40 MG TABLET (FP) PO SCH (10:22)
[2019-10-15] MEDS: CLOPIDOGREL BISULFATE 75 MG TABLET (FP) PO SCH (10:22)
[2019-10-15] MEDS: NIFEdipine E.R. 90 MG TABLET (FP) PO SCH (10:23)
--- NOTE | 2019-10-15 10:36 | PN ---
Progress Note, Physician History of Present Illness: No sig pauses on telemetry, denies recurrent syncope. Cough and dyspnea resolved post dialysis. BP control improved. - Current Medication List Current Medications: Active Medications Acetaminophen (Tylenol -) 650 mg PO Q6H PRN PRN Reason: PAIN LEVEL 7 - 10 Last Admin: 10/14/19 11:34 Dose: 650 mg Albuterol Sulfate (Ventolin 0.083% Nebulizer Soln -) 1 amp NEB RQ4H PRN PRN Reason: SHORT OF BREATH/WHEEZING Albuterol/Ipratropium (Duoneb -) 1 amp NEB RTID [facility] Last Admin: 10/15/19 07:46 Dose: 1 amp Amoxicillin/Clavulanate Potassium (Augmentin - 500mg Tablet) 1 tab PO ONCE ONE Stop: 10/16/19 12:01 Aspirin (Asa -) 81 mg PO DAILY [facility] Last Admin: 10/15/19 10:22 Dose: 81 mg Atorvastatin Calcium (Lipitor -) 10 mg PO HS [facility] Last Admin: 10/14/19 21:11 Dose: 10 mg Clopidogrel Bisulfate (Plavix -) 75 mg PO DAILY [facility] Last Admin: 10/15/19 10:22 Dose: 75 mg Docusate Sodium (Colace -) 100 mg PO [facility] Last Admin: 10/14/19 21:10 Dose: 100 mg Gabapentin (Neurontin -) 100 mg PO BID [facility] Last Admin: 10/15/19 10:22 Dose: 100 mg Heparin Sodium (Porcine) (Heparin -) 5,000 unit SQ TID [facility] Last Admin: 10/15/19 06:05 Dose: 5,000 unit Hydralazine HCl (Apresoline -) 50 mg PO TID [facility] Last Admin: 10/15/19 06:05 Dose: 50 mg Sodium Chloride (Normal Saline -) 250 mls @ 3,000 mls/hr IV PRN PRN PRN Reason: Hypotension during Dialysis Stop: 10/13/19 14:47 Sodium Chloride (Normal Saline -) 250 mls @ 3,000 mls/hr IV PRN PRN PRN Reason: Hypotension during Dialysis Stop: 10/15/19 09:25 Insulin Aspart (Novolog Vial Sliding Scale -) 1 vial SQ [facility]; Protocol Last Admin: 10/15/19 06:02 Dose: Not Given Insulin Detemir (Levemir Vial) 15 units SQ [facility] Last Admin: 10/14/19 21:11 Dose: 15 units Insulin Detemir (Levemir Vial) 20 units SQ AM [facility] Last Admin: 10/15/19 06:05 Dose: 20 units Labetalol HCl (Normodyne -) 300 mg PO TID [facility] Last Admin: 10/15/19 06:05 Dose: 300 mg Losartan Potassium (Cozaar -) 100 mg PO DAILY [facility] Last Admin: 10/15/19 10:22 Dose: 100 mg Nifedipine (Procardia Xl -) 90 mg PO DAILY [facility] Last Admin: 10/15/19 10:23 Dose: 90 mg Pantoprazole Sodium (Protonix -) 40 mg PO DAILY [facility] Last Admin: 10/15/19 10:22 Dose: 40 mg - Objective Vital Signs: Vital Signs Temperature 98.1 F 10/15/19 08:39 Pulse Rate 72 10/15/19 08:39 Respiratory Rate 18 10/15/19 08:39 Blood Pressure 150/57 L 10/15/19 08:39 O2 Sat by Pulse Oximetry (%) 99 10/14/19 23:15 Constitutional: Yes: No Distress, Calm Neck: Yes: Supple Cardiovascular: Yes: Regular Rate and Rhythm Respiratory: Yes: Regular, CTA Bilaterally Gastrointestinal: Yes: Normal Bowel Sounds, Soft Edema: No Labs: CBC, BMP 10/14/19 06:10 10/14/19 06:10 - ....Imaging EKG: Report Reviewed (Tele: NSR no sig pauses or AV block) Problem List - Problems (1) Bradycardia Code(s): R00.1 - BRADYCARDIA, UNSPECIFIED (2) ESRD (end stage renal disease) on dialysis Code(s): N18.6 - END STAGE RENAL DISEASE; Z99.2 - DEPENDENCE ON RENAL DIALYSIS (3) AV fistula Code(s): I77.0 - ARTERIOVENOUS FISTULA, ACQUIRED (4) Acute on chronic diastolic (congestive) heart failure Code(s): I50.33 - ACUTE ON CHRONIC DIASTOLIC (CONGESTIVE) HEART FAILURE (5) Anemia Code(s): D64.9 - ANEMIA, UNSPECIFIED Qualifiers: Anemia type: unspecified type Qualified Code(s): D64.9 - Anemia, unspecified (6) Asymptomatic hypertensive urgency Code(s): I16.0 - HYPERTENSIVE URGENCY (7) Diabetes type 2, controlled Code(s): E11.9 - TYPE 2 DIABETES MELLITUS WITHOUT COMPLICATIONS Qualifiers: Diabetes mellitus complication status: with kidney complications Chronic kidney disease stage: stage 5, not on chronic dialysis (8) Hypertensive urgency Code(s): I10 - ESSENTIAL (PRIMARY) HYPERTENSION (9) Paroxysmal atrial fibrillation Code(s): I48.0 - PAROXYSMAL ATRIAL FIBRILLATION (10) Anemia, chronic renal failure Code(s): N18.9 - CHRONIC KIDNEY DISEASE, UNSPECIFIED; D63.1 - ANEMIA IN CHRONIC KIDNEY DISEASE (11) Diabetes Code(s): E11.9 - TYPE 2 DIABETES MELLITUS WITHOUT COMPLICATIONS Qualifiers: Diabetes mellitus complication status: with kidney complications Diabetes mellitus complication detail: with chronic kidney disease Chronic kidney disease stage: on chronic dialysis (12) End stage renal disease Code(s): N18.6 - END STAGE RENAL DISEASE (13) Hyperlipidemia Code(s): E78.5 - HYPERLIPIDEMIA, UNSPECIFIED Qualifiers: Hyperlipidemia type: pure hypercholesterolemia Qualified Code(s): E78.00 - Pure hypercholesterolemia, unspecified; E78.0 - Pure hypercholesterolemia (14) Hypertensive renal disease Code(s): I12.9 - HYPERTENSIVE CHRONIC KIDNEY DISEASE W STG 1-4/UNSP CHR KDNY Assessment/Plan 10/14/2019 Echocardiography: Severe cLVH, normal LVEF 55%, normal RV size and fxn, tr MR, mild LAE 1. Sinus bradycardia with episode of LOC, suspect post-tussive, vasovagal etiology 2. ESRD on HD with resolved hyperkalemia and hyponatremia 3. COPD 4. HTN 5. Hypercholesterolemia 6. DM 7. LV diastolic dysfunction currently euvolemic 8. Pneumonia PLAN: 1. vehicle monitor technician unremarkable so far 2. Continue Procardia XL 90 mg QD, Losartan 100 mg QD and Labetalol 300 mg TID ( to be used with caution in view of episode of bradycardia). Continue Hydralazine 50 mg TID and uptitrate as needed 3. Continue ASA 81 mg QD, but unclear as to reason for Plavix 4. Continue Lipitor 10 qhs 5. HD as per renal service. Monitor renal function and electrolytes 6. Empiric antibiotic coverage 7. DVT and GI prophylaxis
--- NOTE | 2019-10-15 10:46 | DS ---
Physical Exam: SUBJECTIVE: Patient seen and examined. Feels improved, in no acute distress. Has home oxygen available at 2 liters. OBJECTIVE: Patient is a 73 year old female with a significant past medical history of ESRD- via left av fistula, diabetes, hypertension, diastolic CHF, and COPD (on home oxygen) who comes in with c/o of 2 days of sore throat/cough and malaise. She endorses subjective fevers at home with chills. In the ED she was placed on bipap for acute hypoxic respiratory failure (desaurated to the 70s in the ED) and treated for possible pneumonia with IV zosyn and bipap support during hospital stay. Her respiratory status is back to baseline at 2-3 liters of nasal cannula. Further her cardiac medications were titrated for hypertensive urgency. SEE PROBLEM LIST BELOW. Vital Signs Period Temp Pulse Resp BP Sys/Parker Pulse Ox Last 24 Hr 98 F-98.4 F 60-82 18-20 112-205/53-88 96-99 PHYSICAL EXAM GENERAL: The patient is awake, alert and in no acute distress. primarily speaks kyrgyz. HEAD: Normal with no signs of trauma. EYES: PERRL, extraocular movements intact, sclera anicteric, conjunctiva clear. No ptosis. ENT: Ears normal, nares patent, oropharynx clear without exudates, moist mucous membranes. NECK: Trachea midline, full range of motion, supple. LUNGS: Breath sounds diminished but clear to auscultation HEART: Regular rate and rhythm EXT: (R AVF noted, +bruit/thrill) ABDOMEN: Soft, nontender, nondistended, normoactive bowel sounds, no guarding, no rebound, no hepatosplenomegaly, no masses. LABS Laboratory Results - last 24 hr 10/14/19 10/14/19 10/14/19 11:33 18:22 20:34 POC Glucometer 202 354 259 10/15/19 05:53 POC Glucometer 122 HOSPITAL COURSE: Date of Admission:10/06/19 Date of Discharge: 10/15/19 Minutes to complete discharge: 60 Discharge Summary Problems reviewed: Yes Reason For Visit: HYPOXIA,END STAGE RENAL DISEASE,PNEUMONIA Current Active Problems Acute and chronic respiratory failure with hypoxia (Acute) Anemia (Acute) Bradycardia (Acute) Hypertension (Acute) Hypoxia (Acute) Pneumonia (Acute) Prophylactic measure (Acute) Sepsis (Acute) ESRD (end stage renal disease) on dialysis (Chronic) Condition: Stable - Instructions Diet, Activity, Other Instructions: Mrs Arron White: Nuevas medicinas para la presion arterial Procardia XL 90 mg JASPAL VEZ POR RHONA Losartan 100 mg JASPAL VEZ POR RHONA Labetalol 300 mg VINNY VEZ POR RHONA Hydralazine 50 mg VINNY VEZ POR RHONA Por la infection de los pulmones. Por favor de kaylin Amoxicillin dos (2) veces Amoxicilin 500mg en 10/16/2019 - DESPUES DE DIALYSIS Amoxicilin 500mg en 10/18/2019 - DESPUES DE DIALYSIS Por favor de pratima a umanzor doctor/doctora primaria en 3-5 parker Mrs Arron White: New medications for your blood pressure control Procardia XL 90 mg daily Losartan 100 mg daily Labetalol 300 mg THREE TIMES PER DAY Hydralazine 50 mg THREE TIMES PER DAY For pneumonia, we will be sending you home with two more doses of antibiotics as follows: Amoxicilin 500mg on 10/16/2019 - TAKE AFTER DIALYSIS Amoxicilin 500mg on 10/18/2019 - TAKE AFTER DIALYSIS Please follow up with your doctor at the clinic within 3-5 days after discharge to check your blood pressure. Please follow up with the aws architect that saw you here for blood pressure checkup/follow up Referrals: Ken Burgos [Non Staff, Medical] - 1 Week Clarence Maria MD [Staff Physician] - 1 Week Disposition: HOME - Home Medications Comprehensive Discharge Medication List: Ambulatory Orders Losartan Potassium 100 mg PO DAILY 01/08/17 Calcium Acetate [Phoslo -] 667 mg PO TID 03/09/18 Docusate Sodium 100 mg PO HS 03/09/18 Gabapentin 100 mg PO HS 03/09/18 Insulin (Levemir) [Levemir Vial] 8 unit SQ AM 03/09/18 Insulin (Levemir) [Levemir Vial] 10 unit SQ HS 03/09/18 Pravastatin Sodium [Pravachol -] 20 mg PO HS 03/09/18 Ascorbic Acid [Vitamin C -] 500 mg PO DAILY tablet 04/24/18 Aspirin [ASA -] 81 mg PO DAILY tab.chew 04/24/18 Ferrous Sulfate [Feosol] 325 mg PO TIDCM ud 04/24/18 Clopidogrel Bisulfate [Plavix -] 75 mg PO DAILY 08/13/18 Docusate Sodium [Colace] 200 mg PO DAILY 08/13/18 Ferric Citrate [Auryxia] 2 tab PO TID 08/13/18 Gabapentin [Neurontin -] 100 mg PO BID 08/13/18 Glipizide [Glipizide ER] 5 mg PO DAILY 08/13/18 Insulin Detemir [Levemir Flextouch] 8 unit SQ DAILY 08/13/18 Lanthanum Carbonate [Fosrenol] 1,000 mg PO QID 08/13/18 Losartan Potassium 100 mg PO DAILY 08/13/18 Oxycodone HCl/Acetaminophen [Percocet 5-325 mg Tablet] 1 tab PO Q6H PRN Pantoprazole Sodium 40 mg PO DAILY 08/13/18 Pravastatin Sodium [Pravachol] 20 mg PO HS 08/13/18 Albuterol 2.5/Ipratropium 0.5 [Duoneb -] 1 amp NEB RTID amp 10/15/19 Amoxicillin/Potassium Clav [Amox-Clav 500-125 mg Tablet] 1 each PO DAILY #2 tablet 10/15/19 Gabapentin [Neurontin -] 100 mg PO BID #90 capsule 10/15/19 Labetalol HCl [Normodyne -] 300 mg PO TID #120 tablet 10/15/19 Losartan Potassium [Cozaar -] 100 mg PO DAILY #120 tablet 10/15/19 Nifedipine ER [Procardia XL -] 90 mg PO DAILY #90 tab.er.24 10/15/19 hydrALAZINE HCL [Apresoline -] 50 mg PO TID #120 tablet 10/15/19 Problem List - Problems (1) Acute and chronic respiratory failure with hypoxia Assessment/Plan: resolved CXR with prominent hilar markings on 2 liters of nasal cannula (her baseline) patient is home oxygen dependent with oxygen concentrator pulmonary follow up as an outpatient Code(s): J96.21 - ACUTE AND CHRONIC RESPIRATORY FAILURE WITH HYPOXIA (2) Pneumonia Assessment/Plan: on augmentin per ID, will need 2 more doses on 10/16 and 10/18 after dialysis. Code(s): J18.9 - PNEUMONIA, UNSPECIFIED ORGANISM Qualifiers: Pneumonia type: due to unspecified organism Laterality: left Lung location: lower lobe of lung Qualified Code(s): J18.9 - Pneumonia, unspecified organism (3) Hypoxia Assessment/Plan: supplemental O2 to keep Spo2 >90% solumedrol stopped, monitor off c/w inhaled bronchodilators has not used bipap for a few days Code(s): R09.02 - HYPOXEMIA (4) ESRD (end stage renal disease) on dialysis Assessment/Plan: dialysis yesterday renal following Code(s): N18.6 - END STAGE RENAL DISEASE; Z99.2 - DEPENDENCE ON RENAL DIALYSIS (5) AV fistula Code(s): I77.0 - ARTERIOVENOUS FISTULA, ACQUIRED (6) Sepsis Code(s): A41.9 - SEPSIS, UNSPECIFIED ORGANISM (7) Anemia Assessment/Plan: monitor as an outpt with dialysis Code(s): D64.9 - ANEMIA, UNSPECIFIED (8) Diabetes Assessment/Plan: resume home medications Code(s): E11.9 - TYPE 2 DIABETES MELLITUS WITHOUT COMPLICATIONS Qualifiers: Diabetes mellitus complication status: with kidney complications Diabetes mellitus complication detail: with chronic kidney disease Chronic kidney disease stage: on chronic dialysis (9) Hypertension Assessment/Plan: bp elevated, cardiac medications titrated by cardiology on Procardia XL 90 mg, Losartan to 100 mg qd, Labetalol to 300 mg TID, hydralazine to 50 mg TID Code(s): I10 - ESSENTIAL (PRIMARY) HYPERTENSION (10) Prophylactic measure Assessment/Plan: discharge home Code(s): Z29.9 - ENCOUNTER FOR PROPHYLACTIC MEASURES, UNSPECIFIED This patient is new to me today: No Emergency Visit: Yes ED Registration Date: 10/06/19 Care time: The patient presented to the Emergency Department on the above date and was hospitalized for further evaluation of their emergent condition. Critical Care patient: No - Discharge Referral Referred to [facility] No
--- NOTE | 2019-10-15 12:20 | PN ---
Progress Note, Physician History of Present Illness: pulmonary alert,comfortable,-resp distress - Current Medication List Current Medications: Active Medications Acetaminophen (Tylenol -) 650 mg PO Q6H PRN PRN Reason: PAIN LEVEL 7 - 10 Last Admin: 10/14/19 11:34 Dose: 650 mg Albuterol Sulfate (Ventolin 0.083% Nebulizer Soln -) 1 amp NEB RQ4H PRN PRN Reason: SHORT OF BREATH/WHEEZING Albuterol/Ipratropium (Duoneb -) 1 amp NEB RTID [facility] Last Admin: 10/15/19 07:46 Dose: 1 amp Amoxicillin/Clavulanate Potassium (Augmentin - 500mg Tablet) 1 tab PO ONCE ONE Stop: 10/16/19 12:01 Aspirin (Asa -) 81 mg PO DAILY [facility] Last Admin: 10/15/19 10:22 Dose: 81 mg Atorvastatin Calcium (Lipitor -) 10 mg PO [facility] Last Admin: 10/14/19 21:11 Dose: 10 mg Clopidogrel Bisulfate (Plavix -) 75 mg PO DAILY [facility] Last Admin: 10/15/19 10:22 Dose: 75 mg Docusate Sodium (Colace -) 100 mg PO [facility] Last Admin: 10/14/19 21:10 Dose: 100 mg Gabapentin (Neurontin -) 100 mg PO BID [facility] Last Admin: 10/15/19 10:22 Dose: 100 mg Heparin Sodium (Porcine) (Heparin -) 5,000 unit SQ TID [facility] Last Admin: 10/15/19 06:05 Dose: 5,000 unit Hydralazine HCl (Apresoline -) 50 mg PO TID [facility] Last Admin: 10/15/19 06:05 Dose: 50 mg Sodium Chloride (Normal Saline -) 250 mls @ 3,000 mls/hr IV PRN PRN PRN Reason: Hypotension during Dialysis Stop: 10/13/19 14:47 Sodium Chloride (Normal Saline -) 250 mls @ 3,000 mls/hr IV PRN PRN PRN Reason: Hypotension during Dialysis Stop: 10/15/19 09:25 Insulin Aspart (Novolog Vial Sliding Scale -) 1 vial SQ [facility]; Protocol Last Admin: 10/15/19 11:19 Dose: 6 units Insulin Detemir (Levemir Vial) 15 units SQ [facility] Last Admin: 10/14/19 21:11 Dose: 15 units Insulin Detemir (Levemir Vial) 20 units SQ AM [facility] Last Admin: 10/15/19 06:05 Dose: 20 units Labetalol HCl (Normodyne -) 300 mg PO TID [facility] Last Admin: 10/15/19 06:05 Dose: 300 mg Losartan Potassium (Cozaar -) 100 mg PO DAILY [facility] Last Admin: 10/15/19 10:22 Dose: 100 mg Nifedipine (Procardia Xl -) 90 mg PO DAILY [facility] Last Admin: 10/15/19 10:23 Dose: 90 mg Pantoprazole Sodium (Protonix -) 40 mg PO DAILY [facility] Last Admin: 10/15/19 10:22 Dose: 40 mg - Objective Vital Signs: Vital Signs Temperature 98.1 F 10/15/19 08:39 Pulse Rate 72 10/15/19 08:39 Respiratory Rate 18 10/15/19 08:39 Blood Pressure 150/57 L 10/15/19 08:39 O2 Sat by Pulse Oximetry (%) 99 10/14/19 23:15 Constitutional: Yes: Well Nourished, Calm Eyes: Yes: WNL HENT: Yes: WNL Neck: Yes: WNL Cardiovascular: Yes: Regular Rate and Rhythm, S1, S2 Respiratory: Yes: Diminished Gastrointestinal: Yes: Normal Bowel Sounds, Soft Extremities: Yes: WNL Edema: No Labs: CBC, BMP Problem List - Problems (1) Hypoxia Code(s): R09.02 - HYPOXEMIA (2) ESRD (end stage renal disease) on dialysis Code(s): N18.6 - END STAGE RENAL DISEASE; Z99.2 - DEPENDENCE ON RENAL DIALYSIS (3) Acute on chronic diastolic (congestive) heart failure Code(s): I50.33 - ACUTE ON CHRONIC DIASTOLIC (CONGESTIVE) HEART FAILURE (4) Anemia Code(s): D64.9 - ANEMIA, UNSPECIFIED Qualifiers: Anemia type: unspecified type Qualified Code(s): D64.9 - Anemia, unspecified (5) Paroxysmal atrial fibrillation Code(s): I48.0 - PAROXYSMAL ATRIAL FIBRILLATION (6) Shortness of breath Code(s): R06.02 - SHORTNESS OF BREATH (7) Anemia, chronic renal failure Code(s): N18.9 - CHRONIC KIDNEY DISEASE, UNSPECIFIED; D63.1 - ANEMIA IN CHRONIC KIDNEY DISEASE (8) CKD (chronic kidney disease) Code(s): N18.9 - CHRONIC KIDNEY DISEASE, UNSPECIFIED (9) End stage renal disease Code(s): N18.6 - END STAGE RENAL DISEASE (10) Hyperlipidemia Code(s): E78.5 - HYPERLIPIDEMIA, UNSPECIFIED Qualifiers: Hyperlipidemia type: pure hypercholesterolemia Qualified Code(s): E78.00 - Pure hypercholesterolemia, unspecified; E78.0 - Pure hypercholesterolemia (11) Hypertension Code(s): I10 - ESSENTIAL (PRIMARY) HYPERTENSION Qualifiers: Hypertension type: essential hypertension Qualified Code(s): I10 - Essential (primary) hypertension (12) Congestive heart failure Code(s): I50.9 - HEART FAILURE, UNSPECIFIED (13) Acute and chronic respiratory failure with hypoxia Code(s): J96.21 - ACUTE AND CHRONIC RESPIRATORY FAILURE WITH HYPOXIA Assessment/Plan Problem List - Problems (1) Acute on chronic diastolic (congestive) heart failure Code(s): I50.33 - ACUTE ON CHRONIC DIASTOLIC (CONGESTIVE) HEART FAILURE Assessment/Plan Acute on Chronic Hypoxic Respiratory Failure clinically improved Acute on Chronic Diastolic Heart Failure improved ESRD on HD Pulmonary HTN Acute Bronchitis/URI r/o Pneumonia HTN DM COPD - HD per renal with ultrafiltration - daily weights - titrate bp meds - inhaled bronchodilators - DVT prophylaxis - dc planning DR VIVAS
--- NOTE | 2019-10-15 13:37 | PN ---
Progress Note, Physician History of Present Illness: events noted better - Current Medication List Current Medications: Active Medications Acetaminophen (Tylenol -) 650 mg PO Q6H PRN PRN Reason: PAIN LEVEL 7 - 10 Last Admin: 10/14/19 11:34 Dose: 650 mg Albuterol Sulfate (Ventolin 0.083% Nebulizer Soln -) 1 amp NEB RQ4H PRN PRN Reason: SHORT OF BREATH/WHEEZING Albuterol/Ipratropium (Duoneb -) 1 amp NEB RTID REPLACED BY [facility] Last Admin: 10/15/19 07:46 Dose: 1 amp Amoxicillin/Clavulanate Potassium (Augmentin - 500mg Tablet) 1 tab PO ONCE ONE Stop: 10/16/19 12:01 Aspirin (Asa -) 81 mg PO DAILY REPLACED BY [facility] Last Admin: 10/15/19 10:22 Dose: 81 mg Atorvastatin Calcium (Lipitor -) 10 mg PO [facility] Last Admin: 10/14/19 21:11 Dose: 10 mg Clopidogrel Bisulfate (Plavix -) 75 mg PO DAILY REPLACED BY [facility] Last Admin: 10/15/19 10:22 Dose: 75 mg Docusate Sodium (Colace -) 100 mg PO [facility] Last Admin: 10/14/19 21:10 Dose: 100 mg Gabapentin (Neurontin -) 100 mg PO BID REPLACED BY [facility] Last Admin: 10/15/19 10:22 Dose: 100 mg Heparin Sodium (Porcine) (Heparin -) 5,000 unit SQ TID REPLACED BY [facility] Last Admin: 10/15/19 13:21 Dose: 5,000 unit Hydralazine HCl (Apresoline -) 50 mg PO TID REPLACED BY [facility] Last Admin: 10/15/19 13:19 Dose: 50 mg Sodium Chloride (Normal Saline -) 250 mls @ 3,000 mls/hr IV PRN PRN PRN Reason: Hypotension during Dialysis Stop: 10/13/19 14:47 Sodium Chloride (Normal Saline -) 250 mls @ 3,000 mls/hr IV PRN PRN PRN Reason: Hypotension during Dialysis Stop: 10/15/19 09:25 Insulin Aspart (Novolog Vial Sliding Scale -) 1 vial SQ [facility]; Protocol Last Admin: 10/15/19 11:19 Dose: 6 units Insulin Detemir (Levemir Vial) 15 units SQ [facility] Last Admin: 10/14/19 21:11 Dose: 15 units Insulin Detemir (Levemir Vial) 20 units SQ AM REPLACED BY [facility] Last Admin: 10/15/19 06:05 Dose: 20 units Labetalol HCl (Normodyne -) 300 mg PO TID REPLACED BY [facility] Last Admin: 10/15/19 13:19 Dose: 300 mg Losartan Potassium (Cozaar -) 100 mg PO DAILY REPLACED BY [facility] Last Admin: 10/15/19 10:22 Dose: 100 mg Nifedipine (Procardia Xl -) 90 mg PO DAILY REPLACED BY [facility] Last Admin: 10/15/19 10:23 Dose: 90 mg Pantoprazole Sodium (Protonix -) 40 mg PO DAILY REPLACED BY [facility] Last Admin: 10/15/19 10:22 Dose: 40 mg - Objective Vital Signs: Vital Signs Temperature 98.1 F 10/15/19 08:39 Pulse Rate 72 10/15/19 08:39 Respiratory Rate 18 10/15/19 08:39 Blood Pressure 150/57 L 10/15/19 08:39 O2 Sat by Pulse Oximetry (%) 99 10/14/19 23:15 Constitutional: Yes: No Distress, Calm Cardiovascular: Yes: S1, S2 Respiratory: Yes: Regular, CTA Bilaterally, On Nasal O2 Gastrointestinal: Yes: Normal Bowel Sounds, Soft Musculoskeletal: Yes: WNL Extremities: Yes: WNL Neurological: Yes: Alert, Oriented Psychiatric: Yes: Alert, Oriented Labs: CBC, BMP 10/14/19 06:10 10/14/19 06:10 Assessment/Plan Problem List - Problems (1) Hypoxia Code(s): R09.02 - HYPOXEMIA (2) ESRD (end stage renal disease) on dialysis Code(s): N18.6 - END STAGE RENAL DISEASE; Z99.2 - DEPENDENCE ON RENAL DIALYSIS (3) Acute on chronic diastolic (congestive) heart failure Code(s): I50.33 - ACUTE ON CHRONIC DIASTOLIC (CONGESTIVE) HEART FAILURE (4) Anemia Code(s): D64.9 - ANEMIA, UNSPECIFIED Qualifiers: Anemia type: unspecified type Qualified Code(s): D64.9 - Anemia, unspecified (5) Paroxysmal atrial fibrillation Code(s): I48.0 - PAROXYSMAL ATRIAL FIBRILLATION (6) Shortness of breath Code(s): R06.02 - SHORTNESS OF BREATH (7) Anemia, chronic renal failure Code(s): N18.9 - CHRONIC KIDNEY DISEASE, UNSPECIFIED; D63.1 - ANEMIA IN CHRONIC KIDNEY DISEASE (8) CKD (chronic kidney disease) Code(s): N18.9 - CHRONIC KIDNEY DISEASE, UNSPECIFIED (9) End stage renal disease Code(s): N18.6 - END STAGE RENAL DISEASE (10) Hyperlipidemia Code(s): E78.5 - HYPERLIPIDEMIA, UNSPECIFIED Qualifiers: Hyperlipidemia type: pure hypercholesterolemia Qualified Code(s): E78.00 - Pure hypercholesterolemia, unspecified; E78.0 - Pure hypercholesterolemia (11) Hypertension Code(s): I10 - ESSENTIAL (PRIMARY) HYPERTENSION Qualifiers: Hypertension type: essential hypertension Qualified Code(s): I10 - Essential (primary) hypertension (12) Congestive heart failure Code(s): I50.9 - HEART FAILURE, UNSPECIFIED (13) Acute and chronic respiratory failure with hypoxia Code(s): J96.21 - ACUTE AND CHRONIC RESPIRATORY FAILURE WITH HYPOXIA Assessment/Plan continue current mgmt rest as per the team
[2019-10-15 15:13] VITALS: BP 152/65; PULSE 66; TEMP 97.4
[2019-10-15 15:14] LABS: BASO % 0.6 % (0-2.0); EOS % 6.3 % (0-4.5); HEMATOCRIT 34.7 % (32.4-45.2); HEMOGLOBIN 11.2 GM/dL (10.7-15.3); LYMPH % 11.5 % (8-40); MCH 26.4 pg (25.7-33.7); MCHC 32.3 g/dl (32.0-36.0); MEAN CELL VOLUME 81.6 fl (80-96); MEAN PLT VOLUME 8.8 fl (7.5-11.1); MONO % 8.9 % (3.8-10.2); NEUT % 72.7 % (42.8-82.8); PLATELET COUNT 188 K/MM3 (134-434); RBC 4.25 M/mm3 (3.60-5.2); RDW 18.9 % (11.6-15.6); WHITE BLOOD COUNT 8.7 K/mm3 (4.0-10.0)
[2019-10-15] MEDS ORDERED: SODIUM CHLORIDE 250 ML IV PRN (15:47)
[2019-10-15 15:55] LABS: ANISOCYTOSIS 3+; MACROCYTOSIS 2+; OVALOCYTE 1+; PLATELET ESTIMATE NORMAL
[2019-10-15 15:56] LABS: ALBUMIN 3.7 g/dl (3.4-5.0); BILIRUBIN,TOTAL 0.5 mg/dL (0.2-1); BLOOD UREA NITROGEN 43.4 mg/dL (7-18); CALCIUM 7.9 mg/dL (8.5-10.1); CREATININE 5.2 mg/dL (0.55-1.3); MAGNESIUM 1.8 mg/dL (1.8-2.4); POTASSIUM 4.2 mmol/L (3.5-5.1); TOT PROT 7.1 g/dl (6.4-8.2)
[2019-10-16] MEDS ORDERED: HEPARIN NA (PORCINE) 5,000 UNITS/ML 1ML VIAL IVPUSH ONE (06:00)
[2019-10-16] MEDS ORDERED: HEPARIN NA (PORCINE) 5,000 UNITS/ML 1ML VIAL IVPUSH SCH (07:00)
[2019-10-16] MEDS ORDERED: AMOX TR/POT CLAV 500MG/125MG TABLETS (FP) PO ONE (12:00)
== END 2019-10-15 17:53 | disposition home or self-care (01) | DRG 720 ==
LOC: JER 20:13 → JERBED 23:10 → J4S 10-07 16:36
PROVIDERS: ADMIT Internal Medicine; ATTEND Nurse Practitioner Family
PROC: 5A1D70Z Performance of Urinary Filtration, Intermittent, Less than 6 Hours Per Day (ICD-10-PCS; principal; 2019-10-14)
DX: A41.9 Sepsis, unspecified organism (principal); I13.2 Hypertensive heart and chronic kidney disease with heart failure and with stage 5 chronic kidney disease, or end stage renal disease; N18.6 End stage renal disease; E11.22 Type 2 diabetes mellitus with diabetic chronic kidney disease; E87.1 Hypo-osmolality and hyponatremia; J18.9 Pneumonia, unspecified organism; R00.1 Bradycardia, unspecified; I48.0 Paroxysmal atrial fibrillation; E87.5 Hyperkalemia; J06.9 Acute upper respiratory infection, unspecified; I50.33 Acute on chronic diastolic (congestive) heart failure; J96.21 Acute and chronic respiratory failure with hypoxia; J44.9 Chronic obstructive pulmonary disease, unspecified; I27.20 Pulmonary hypertension, unspecified; D63.1 Anemia in chronic kidney disease; E78.5 Hyperlipidemia, unspecified; Z99.2 Dependence on renal dialysis; D72.829 Elevated white blood cell count, unspecified; E87.70 Fluid overload, unspecified; E11.65 Type 2 diabetes mellitus with hyperglycemia
CPT/HCPCS: 36415; 36600; 71045-TC-FY; 80048; 80053; 82375; 82550; 82803; 82962; 83036; 83050; 83605; 83735; 83880; 84100; 84484; 85025; 85027; 86803; 87040; 87070; 87340; 87804; 87880; 93005; 93010; 93306-TC; 94640; 94660; 97116-GP; 97161-GP; 99285-25; J0131; J0885; J1644